=== PATIENT | male | born 1965 | race Caucasian/White ===

== ENCOUNTER → 2021-03-19 11:17 | Outpatient (CLI) | payer OTHER, SELFPAY ==
[2021-03-19 14:14] LABS: Absolute Lymphocyte Count 0.84 X10^3/uL (0.83-4.51); Absolute Neutrophil Count 6.1 X10^3/uL (2.0-7.7); Basophil# 0.03 X10^3/uL; Basophil% 0.4 % (0-1); Eosinophil# 0.04 X10^3/uL; Eosinophils% 0.5 % (0-5); Hemoglobin 12.1 g/dL (13.0-16.5); Lymphocyte # 0.84 X10^3/ul (0.83-4.51); Lymphocyte % 11.2 % (19-41); Mean Corp Hgb Conc 31.8 g/dL (32-36); Mean Corpuscular Hgb 28.1 pg (27.0-32.0); Mean Corpuscular Volume 88.4 fL (80-94); Mean Platelet Vol. 10.6 fl (6.2-12.0); Monocyte# 0.45 X10^3/uL; NRBC Flagged by Analyzer 0 % (0-5); Neutrophil # 6.12 X10^3/uL (2.7-7.7); Neutrophil % 81.5 % (47-70); Platelet Count 234 K/mm3 (150-450); RBC Distribution Width CV 16.4 % (11.6-14.6); RBC Distribution Width SD 52.8 fl (35.1-43.9); White Blood Count 7.5 K/mm3 (4.4-11.0)
[2021-03-19 14:34] LABS: ALB/GLOB Ratio 0.7 RATIO (0.9-2.4); AST(SGOT) 27 U/L (15-37); Alanine Aminotransfer ALT/SGPT 38 U/L (16-61); Albumin, Serum 2.9 g/dL (3.2-5.0); Alkaline Phosphatase 88 U/L (45-117); Anion Gap 6 (5-15); BUN 18 mg/dL (7-18); BUN/Creat Ratio 22.8 RATIO (10-20); Calcium,Total 8.8 mg/dL (8.5-10.1); Chloride 110 mmol/L (98-107); Creatinine, Serum 0.79 mg/dL (0.70-1.30); EST Glomerular Filtration Rate 108 mL/min (>60); Est Glom Filt Rate - Afr Amer 130 mL/min (>60); Globulin 4.4 g/dL (2.2-4.2); Glucose 113 mg/dL (74-106); Potassium 3.9 mmol/L (3.5-5.1); Protein, Total 7.3 g/dL (6.4-8.2); Sodium Level 142 mmol/L (136-145)
== END ==
LOC: MTLAB 11:22
PROVIDERS: PCP Family Medicine; Referring Provider Internal Medicine Rheumatology; Visit Provider Internal Medicine Rheumatology
DX: M06.4 Inflammatory polyarthropathy (principal); M17.0 Bilateral primary osteoarthritis of knee; M48.061 Spinal stenosis, lumbar region without neurogenic claudication; I10 Essential (primary) hypertension; E78.5 Hyperlipidemia, unspecified; N52.9 Male erectile dysfunction, unspecified; G47.33 Obstructive sleep apnea (adult) (pediatric); Z79.899 Other long term (current) drug therapy
CPT/HCPCS: 36415; 80053; 85025

== ENCOUNTER 2021-05-14 11:23 | Outpatient (CLI) | payer OTHER, SELFPAY ==
[2021-05-14 14:57] LABS: Absolute Lymphocyte Count 1.07 X10^3/uL (0.83-4.51); Absolute Neutrophil Count 4.7 X10^3/uL (2.0-7.7); Basophil# 0.02 X10^3/uL; Basophil% 0.3 % (0-1); Eosinophil# 0.02 X10^3/uL; Eosinophils% 0.3 % (0-5); Hematocrit 39.6 % (40-54); Hemoglobin 12.5 g/dL (13.0-16.5); Lymphocyte # 1.07 X10^3/ul (0.83-4.51); Lymphocyte % 16.1 % (19-41); Mean Corp Hgb Conc 31.6 g/dL (32-36); Mean Corpuscular Hgb 27.9 pg (27.0-32.0); Mean Corpuscular Volume 88.4 fL (80-94); Mean Platelet Vol. 11.2 fl (6.2-12.0); Monocyte# 0.67 X10^3/uL; Monocyte% 10.1 % (0-10); NRBC Flagged by Analyzer 0 % (0-5); Neutrophil # 4.74 X10^3/uL (2.7-7.7); Neutrophil % 71.5 % (47-70); Platelet Count 274 K/mm3 (150-450); RBC Distribution Width CV 15.4 % (11.6-14.6); RBC Distribution Width SD 49.5 fl (35.1-43.9); Red Blood Count 4.48 M/mm3 (4.6-6.2); White Blood Count 6.6 K/mm3 (4.4-11.0)
[2021-05-14 15:14] LABS: ALB/GLOB Ratio 0.6 RATIO (0.9-2.4); AST(SGOT) 22 U/L (15-37); Alanine Aminotransfer ALT/SGPT 33 U/L (16-61); Albumin, Serum 2.9 g/dL (3.2-5.0); Alkaline Phosphatase 105 U/L (45-117); Anion Gap 7 (5-15); BUN 10 mg/dL (7-18); BUN/Creat Ratio 13.9 RATIO (10-20); Calcium,Total 8.9 mg/dL (8.5-10.1); Chloride 102 mmol/L (98-107); Creatinine, Serum 0.72 mg/dL (0.70-1.30); EST Glomerular Filtration Rate 120 mL/min (>60); Est Glom Filt Rate - Afr Amer 145 mL/min (>60); Globulin 4.7 g/dL (2.2-4.2); Glucose 100 mg/dL (74-106); Potassium 3.8 mmol/L (3.5-5.1); Protein, Total 7.6 g/dL (6.4-8.2); Sodium Level 137 mmol/L (136-145)
== END 2021-05-14 23:59 | disposition home or self-care (01) ==
PROVIDERS: PCP Family Medicine; Referring Provider Internal Medicine Rheumatology; Visit Provider Internal Medicine Rheumatology
DX: M06.4 Inflammatory polyarthropathy (principal); M17.0 Bilateral primary osteoarthritis of knee; M48.061 Spinal stenosis, lumbar region without neurogenic claudication; I10 Essential (primary) hypertension; E78.5 Hyperlipidemia, unspecified; N52.9 Male erectile dysfunction, unspecified; G47.33 Obstructive sleep apnea (adult) (pediatric); Z79.899 Other long term (current) drug therapy
CPT/HCPCS: 36415; 80053; 85025

== ENCOUNTER 2022-07-23 19:06 | Inpatient (IN) | payer OTHER, SELFPAY ==
[2022-07-23 19:15] VITALS: BP 104/68; PULSE 89; RESP 18; TEMP 37.4; O2SAT 94
[2022-07-23 20:03] VITALS: BMI 41.6
[2022-07-23 21:35] VITALS: BMI 41.4
[2022-07-23] MEDS: oxyCODONE 5 MG Tablet PO (22:20)
[2022-07-23] MEDS: Acetaminophen 500 MG Tablet 1000 MG PO (22:21)
[2022-07-23] MEDS: Hydroxychloroquine 200 MG Tablet PO (22:21)
[2022-07-23] MEDS: Atorvastatin Calcium 40 MG Tablet PO (22:21)
[2022-07-23 22:23] VITALS: BP 135/55; PULSE 87; RESP 18; TEMP 36.9; O2SAT 91
--- NOTE | 2022-07-23 23:00 | NURSING ---
pt placed on 2L NC for sleep. Pt O2 91% while awake at times.
[2022-07-23] MEDS: 0.9% Saline Lock 10 ML Syringe IV (23:37)
[2022-07-24] VITALS (7 sets, daily range): BP systolic 126–146; BP diastolic 54–72; PULSE 79–85; RESP 16–22; TEMP 36.7–37.2; O2SAT 92–94; BMI 41.4
[2022-07-24 05:47] LABS: Absolute Lymphocyte Count 1.48 X10^3/uL (0.83-4.51); Absolute Neutrophil Count 7.9 X10^3/uL (2.0-7.7); Basophil# 0.04 X10^3/uL; Basophil% 0.4 % (0-1); Eosinophil# 0.24 X10^3/uL; Eosinophils% 2.2 % (0-5); Hematocrit 29.9 % (40-54); Hemoglobin 8.9 g/dL (13.0-16.5); Lymphocyte # 1.48 X10^3/ul (0.83-4.51); Lymphocyte % 13.8 % (19-41); Mean Corp Hgb Conc 29.8 g/dL (32-36); Mean Corpuscular Hgb 25.1 pg (27.0-32.0); Mean Corpuscular Volume 84.2 fL (80-94); Mean Platelet Vol. 9.8 fl (6.2-12.0); Monocyte# 0.97 X10^3/uL; Monocyte% 9.1 % (0-10); NRBC Flagged by Analyzer 0 % (0-5); Neutrophil # 7.89 X10^3/uL (2.7-7.7); Neutrophil % 73.8 % (47-70); Platelet Count 394 K/mm3 (150-450); RBC Distribution Width CV 16.1 % (11.6-14.6); RBC Distribution Width SD 50.3 fl (35.1-43.9); Red Blood Count 3.55 M/mm3 (4.6-6.2); White Blood Count 10.7 K/mm3 (4.4-11.0)
[2022-07-24 06:15] LABS: ALB/GLOB Ratio 0.4 RATIO (0.9-2.4); AST(SGOT) 61 U/L (15-37); Alanine Aminotransfer ALT/SGPT 88 U/L (16-61); Albumin, Serum 2.2 g/dL (3.2-5.0); Alkaline Phosphatase 137 U/L (45-117); Anion Gap 9 (5-15); BUN 12 mg/dL (7-18); Chloride 107 mmol/L (98-107); Creatinine, Serum 0.63 mg/dL (0.70-1.30); EST Glomerular Filtration Rate 139 mL/min (>60); Est Glom Filt Rate - Afr Amer 168 mL/min (>60); Estimated Creatinine Clearance 152.76 ml/min; Globulin 5.3 g/dL (2.2-4.2); Glucose 105 mg/dL (74-106); Magnesium 2.3 mg/dL (1.6-2.6); Phosphorus 4.3 mg/dL (2.5-4.9); Potassium 3.8 mmol/L (3.5-5.1); Protein, Total 7.5 g/dL (6.4-8.2); Sodium Level 140 mmol/L (136-145); Uric Acid 4.7 mg/dL (3.5-7.2)
[2022-07-24] MEDS: 0.9% Saline Lock 10 ML Syringe IV ×4 (06:19→23:12)
[2022-07-24] MEDS: Folic Acid 1 MG Tablet PO (07:48)
[2022-07-24] MEDS: Aspirin E.C. 81 MG Tablet PO (07:48)
[2022-07-24] MEDS: amLODIPine 10 MG Tablet PO (07:48)
[2022-07-24] MEDS: Fenofibrate 48 MG Tablet PO (07:48)
[2022-07-24] MEDS: Clopidogrel Bisulfate 75 MG Tablet PO (07:49)
[2022-07-24] MEDS: Allopurinol 300 MG Tablet PO (07:55)
[2022-07-24] MEDS: Allopurinol 100 MG Tablet PO (07:55)
[2022-07-24] MEDS: oxyCODONE 5 MG Tablet PO ×2 (08:17→15:51)
[2022-07-24] MEDS: Acetaminophen 500 MG Tablet 1000 MG PO ×2 (10:00→20:44)
[2022-07-24] MEDS: Hydroxychloroquine 200 MG Tablet PO ×2 (10:01→20:45)
--- NOTE | 2022-07-24 10:53 | EX.PCM.HP.RE ---
[facility] Date of Admission: 07/23/22 Date of Service: 07/24/22 Chief Complaint: Post stroke debility HPI Narrative PHILIP DU, is a 57 YO M with a PMH of HTN, Class 3 obesity, hyperuricemia, gout, recent (06/29/22) angioplasty and stent to the R popliteal Artery for occlusion, RA (started on Plaquenil and folic acid by his PCP.....no recent eye exam) on tobacco dependence in remission, FH of heart disease and chronic back pain who presented to [facility] on 07/11/22 with left side weakness and slurred speech. NIHSS was 11 at presentation to the emergency room. Stat NC CT brain was negative for acute findings and he received TNK. He was transferred to [facility] for further workup. Upon arrival at [facility] his NIHSS was 4. He was evaluated by Dr. Warner and there was no indication for EVT at the time. He was admitted to the NICU and his NIHSS later went back up to 11 and he was taken for an emergent M1 thrombectomy. MRI showed ischemic infarcts in the R M1 and M2 areas and also in the L temporal lobe, the occipital lobe and the L cerebellum and a small SAH in the Left temporal area. Follow up MRI showed no changes. He had a TTE to determine the etiology of the emboli and he was found to have a PFO. He also had fever and leukocytosis and a DEYVI was done and it showed severe aortic regurgitation with a vegetation on the aortic valve. Blood cultures were negative. He was seen in consultation by infectious disease and at the time of transfer he is on Unasyn and daptomycin. While at the previous hospital he was seen by PT/OT/ST and a recommendation for acute rehab was made. Al was transferred to [facility] acute rehab on 07/23/22 for 3 hours of therapy daily to restore function/independence at or near his prior level. Afebrile VSS Maintaining appropriate oxygen saturation on RA Oral intake is adequate Weight today is 333.3 pounds. On 07/11/2022 he weighed 347 pounds and 11 ounces. Discussed with nursing - no problems that need addressed Reviewed the PT/OT/ST notes Medication list reviewed. He came to us on Vasotec 10 mg and the hospital does not have Vasotec on formulary so pharm did an interchange with Lisinopril 20 mg and this was discontinued when the pt told the night nurse he was not on Lisinopril. He has gotten progressively more SOB as the day has gone on and has a dry cough. He has pain in the R calf and he is also c/o KAY's and back pain. PT tells me that he was SOB with exertion. He snores loudly and does not feel rested when he gets up in the AM. He falls asleep reading a book or riding in a car for any length of time. He has HTN and his BMI is 41.7. Stop bang score is 7 which puts him at high risk for obstructive sleep apnea. [facility] Medical History (Updated 07/24/22 @ 17:[address] Sylvie Plata DO) Chronic back pain Class 3 obesity Family history of heart disease Former smoker Gout Hearing loss, left Hypertension Peripheral vascular disease PFO (patent foramen ovale) Presence of arterial stent Rheumatoid arthritis Stroke/cerebrovascular accident Home Medications Acetaminophen Pain Relief 500 mg PO/SL Q8H PRN PRN Pain 07/23/22 [History Last Taken Unknown] Cubicin 900 mg IVPB DINNER ATB 07/23/22 [History Last Taken 07/23/22 17:52] albuterol sulfate 90 mcg/actuation aerosol inhaler 90 mcg inhalation Q6H PRN PRN Shortness Of Breath Or Wheezing 07/23/22 [History Last Taken Unknown] allopurinol 100 mg tablet 100 mg PO DAILY GOUT 07/23/22 [History Last Taken Unknown] allopurinol 300 mg tablet 300 mg PO DAILY GOUT 07/23/22 [History Last Taken 07/23/22] amlodipine 10 mg PO/SL DAILY HTN 07/23/22 [History Last Taken 07/23/22] ampicillin-sulbactam 3 g IVPB Q6H ATB 07/23/22 [History Last Taken 07/23/22 17:23] aspirin 81 mg PO/SL DAILY HEART 07/23/22 [History Last Taken 07/23/22] atorvastatin 40 mg PO/SL QHS HIGH CHOLESTEROL 07/23/22 [History Last Taken 07/22/22 21:22] baclofen 5 mg tablet 5 mg PO 2XD PRN MUSCLE CRAMPS 07/23/22 [History Last Taken 07/23/22] clopidogrel 75 mg tablet 75 mg PO DAILY BLOOD THINNER 07/23/22 [History Last Taken 07/23/22] enalapril maleate 20 mg tablet 20 mg PO DAILY HTN 07/23/22 [History Last Taken 07/23/22] fenofibrate 54 mg tablet 54 mg PO DAILY HYPERTRIGLYCERIDEMIA 07/23/22 [History Last Taken Unknown] folic acid 1 mg tablet 1 mg PO DAILY ANEMIA 07/23/22 [History Last Taken 07/23/22] hydroxychloroquine 200 mg tablet 200 mg PO BID ARTHRITIS 07/23/22 [History Last Taken Unknown] oxycodone 5 mg tablet 5 mg PO Q6H PRN PRN PAIN 07/23/22 [History Last Taken 07/23/22 14:44] polyethylene glycol 3350 17 g PO/SL DAILY CONSTIPATION 07/23/22 [History Last Taken 07/22/22 08:10] senna-docusate sodium 8.6 - 50 mg PO/SL BID STOOL SOFTENER 07/23/22 [History Last Taken 07/22/22] Allergy/AdvReac Type Severity Reaction Status Date / Time cephalexin Allergy Shortness Verified 07/23/22 20:24 of breath Surgical History (Updated 07/24/22 @ 11:[address] Syvlie Plata, DO) H/O hand surgery History of bowel resection Hx of total knee arthroplasty Postprocedural state Social History Smoking Status: Former smoker ROS Constitutional Constitutional: Reports change in weight, weight loss and other Details: wt loss since admission to the hospital on 07/11/22 ; Denies anorexia, chills, fatigue, fever(s), night sweats or weakness Eyes Eyes: Denies blurry vision, change in vision, eye pain or loss of vision ENT HEENT: Reports headache(s); Denies abnormal hearing, dysphagia, hearing loss, nasal congestion or sore throat Cardiovascular Cardiovascular: Reports dyspnea on exertion and edema; Denies chest pain, lightheadedness, orthopnea, palpitations, paroxysmal nocturnal dyspnea or syncope Respiratory/Chest Respiratory/Chest: Reports cough, shortness of breath with exertion and wheezing; Denies dyspnea or shortness of breath at rest Gastrointestinal Gastrointestinal: Denies abdominal pain, constipation, diarrhea, dyspepsia, hematemesis, hematochezia, nausea or vomiting Genitourinary Genitourinary: Denies dysuria, hematuria, nocturia, urinary frequency, urinary hesitancy, urinary incontinence or urinary urgency Musculoskeletal Musculoskeletal: Reports back pain and joint pain; Denies joint swelling or neck pain Neurologic Neurologic: Reports headache(s); Denies confusion, disequilibrium, dizziness, focal weakness, paresthesias, seizures or tremor(s) Psychiatric Psychiatric: Denies anxiety, depression, homicidal ideation or suicidal ideation Endocrine Endocrinology: Denies change in body appearance, polydipsia or polyuria Hematologic/Lymphatic Hematologic/Lymphatic: Denies easy bleeding, easy bruising or lymphadenopathy Allergic/Immunologic Allergic/Immunologic: Denies rhinitis, eczemia or asthma Vital Signs Vital Signs Vital Signs: 07/23/22 19:15 07/23/22 22:23 07/23/22 22:00 Temperature 99.4 F H 98.4 F Temperature Source Oral Oral Pulse Rate 89 87 Respiratory Rate 18 18 Respiratory Effort Normal Non-Labored Respiratory Depth Normal Respiratory Pattern Normal Blood Pressure 104/68 135/55 H Blood Pressure Mean 80 81 Blood Pressure Source Monitor Blood Pressure Position Semi-Fowlers Semi-Fowlers Blood Pressure Location Right Forearm Right Arm Pulse Ox 94 91 Oxygen Delivery Method Room Air Room Air Room Air 07/24/22 07:47 Temperature 98.6 F Temperature Source Oral Pulse Rate 81 Respiratory Rate 18 Respiratory Effort Respiratory Depth Respiratory Pattern Blood Pressure 146/64 H Blood Pressure Mean 91 Blood Pressure Source Monitor Blood Pressure Position Semi-Fowlers Blood Pressure Location Right Arm Pulse Ox 94 Oxygen Delivery Method Room Air Weight Weight: 333 lb 1.895 oz Body Mass Index (BMI) 41.4 Indicators for Scoring Admitted with or Primary Diagnosis of CVA/Stroke: Yes Hx of CVA/Stroke: No Modified Adryan Score MRS Score at time of Evaluation: 4-Moderate/severe disability NIHSS NIHSS 1a. Level of Consciousness: Alert; keenly responsive 1b. LOC Questions: Answers BOTH questions correctly. 1c. LOC Commands: Performs both tasks correctly. 2. Best Gaze: Normal 3. Visual: No visual loss 4. Facial Palsy: Normal symmetrical movements 5a. Left Arm: No drift; arm holds 90 (or 45) degrees for full 10 seconds 5b. Right Arm: Drift; arm drifts downward but doesn?t hit the bed (c/o R shoulder pain and needed asistance from PT to get the RUE onto the WW) 6a. Left Leg: No drift; leg holds 30-degree position for full 5 seconds 6b. Right Leg: No drift; leg holds 30-degree position for full 5 seconds 7. Limb Ataxia: Absent 8. Sensory: Normal; no sensory loss 9. Best Language: No aphasia; normal 10. Dysarthria: [id number] dysarthria; 11. Extinction and Inattention: No abnormality Total: 2 Stroke Questions Stroke Team Activated: No Physical Exam Const alert and oriented x3 Constitutional Narrative: Looks to be in pain. He is lying in bed and is restless. He falls asleep twice when I am talking with him but, arouses easily. The R leg is painful and he has the knee up on a pillow and says it feels better if the Knee is flexed. He is pleasant. General Appearance: cooperative HEENT normocephalic and head/scalp atraumatic HEENT Narrative: missing teeth and many caries. Mouth: dry mucous membranes Eyes PERRL and EOMs intact bilaterally Eyes Narrative: No scleral icterus, no conjunctival injection, no discharge from the eye, sclera is normal. Neck supple Neck Narrative: Thick short neck General: trachea midline Resp Resp Narrative: diffuse wheezing with diminished BS's. Dry cough. Increased RR with any exertion. Denies CP. Auscultation: wheezes and diminished lung sounds Cardio regular rate, regular rhythm, no murmurs and no rub Cardio Narrative: Distant Heart sounds. GI normal to inspection, nondistended, normoactive bowel sounds, soft to palpation and non-tender GI Narrative: No guarding with palpation. Obese. Extremity Extremity Narrative: calf tenderness on the R edema in both distal LE's Skin no jaundice General Skin Exam: no breakdown Rashes: no rashes Neuro Neuro Narrative: Trace Left facial droop. Speech: speech normal Psych cooperative, affect normal, denies homicidal ideation and denies suicidal ideation Psych Narrative: seems overwhelmed with all that is going on with him the past month. Appearance: appropriate Attitude: No agitated Results Lab / Micro Data Result Diagrams: 07/24/22 05:39 07/24/22 05:39 Labs: Laboratory Results - last 24 hr 07/24/22 05:39: WBC 10.7, RBC 3.55 L, Hgb 8.9 L, Hct 29.9 L, MCV 84.2, MCH 25.1 L, MCHC 29.8 L, RDW Std Deviation 50.3 H, RDW Coeff of Ghassan 16.1 H, Plt Count 394, MPV 9.8, Immature Gran % (Auto) 0.700, Neut % (Auto) 73.8 H, Lymph % (Auto) 13.8 L, Cecil % (Auto) 9.1, Eos % (Auto) 2.2, Baso % (Auto) 0.4, Absolute Neuts (auto) 7.9 H, Absolute Lymphs (auto) 1.48, Nucleated RBC % 0 07/24/22 05:39: Sodium 140, Potassium 3.8, Chloride 107, Carbon Dioxide 24.0, Anion Gap 9, BUN 12, Creatinine 0.63 L, Estim Creat Clear Calc 152.76, Est GFR (MDRD) Af Amer 168, Est GFR (MDRD) Non-Af 139, BUN/Creatinine Ratio 19.0, Glucose 105, Uric Acid 4.7, Calcium 9.0, Phosphorus 4.3, Magnesium 2.3, Total Bilirubin 0.40, AST 61 H, ALT 88 H, Alkaline Phosphatase 137 H, Total Protein 7.5, Albumin 2.2 L, Globulin 5.3 H, Albumin/Globulin Ratio 0.4 L Assessment & Plan Assessment/Plan (1) Physical debility: (2) Stroke/cerebrovascular accident: PLAN: R MCA M1 and M2 - S/P EVT on 07/11/22 at [facility] by Dr. Warner. Received thrombolytic. (3) Postprocedural state: (4) PFO (patent foramen ovale): (5) SAH (subarachnoid hemorrhage): PLAN: post thrombolytic (6) Aortic valve vegetation: PLAN: BC's negative ( got antibiotics before the vegetation was identified). (7) Endocarditis: PLAN: On Unasyn and daptomycin (8) S/P PICC central line placement: (9) Severe aortic valve regurgitation: PLAN: 3+ to 4+ (10) Left atrial enlargement: (11) DVT of lower limb, acute: PLAN: R gastrocnemius (12) Peripheral vascular disease: PLAN: R popliteal (13) Presence of arterial stent: PLAN: angioplasty and stent to the R popliteal A. on 06/29/22 at [facility] (14) Superficial thrombophlebitis: PLAN: While are [facility].....suspected to be due to an IV infiltrating. (15) Normocytic hypochromic anemia: (16) Rheumatoid arthritis: PLAN: Treated by PCP. Has never seen a draftsperson and has not had a recent eye exam on Plaquenil. (17) Prediabetes: (18) Class 3 obesity: (19) Hyperuricemia: PLAN: UA is 4.7 today. No tophi (20) Gout: (21) Hypertension: (22) Abnormal LFTs: (23) Hypoalbuminemia: (24) Elevated TSH: (25) CATHY (obstructive sleep apnea): PLAN: Stop Bang score is 7. High risk for CATHY. Should have a formal sleep study post DC. (26) Chronic back pain: PLAN: Plan PLAN PT for gait stability OT for ADL's ST for evaluation Analgesics as needed Bowel protocol Fall precautions Assess for Anxiety/Depression GI prophylaxis with Protonix 40 mg daily DVT prophylaxis with Lovenox 30 mg SQ every 12 hours Follow up with cardiology, neurology, PCP, pulmonary medicine/sleep medicine following DC from [facility] AM lab including CMP, CBC, Mag and Phos all personally reviewed. Venous US of the RLE is positive for DVT in the gastrocnemius vein - no prior hx of DVT. CTA of the chest in light of SOB and wheezing and ? infiltrate on plain XRAY of the chest. D DIMER BNP Continue antibiotics Oxycodone PRN for back pain and also K pad and arthritis cream. Schedule the Baclofen 5 mg BID Oxygen when sleeping and when SOB CBC with DIFF, CMP, ESR and CRP every Wednesday while on antibiotics Can not follow up with ID at [facility] while on acute rehab so will likely consult Dr. Riojas on Wednesday. Since the clot in the RLE is distal leg will not fully anticoagulate at this time. Will recheck an US next week to make sure it is not extending. Continue Lovenox 40 mg SQ twice daily - for BMI of 42 in a immobile pt with a small distal DVT. Hs been 13 days since the stroke This pt is complex and will need a lot of follow up. We discussed losing weight and possibly using Effexor to help with back pain and with depression and wt loss. Consult the behavioral health director Advised him to follow up with Rheumatology and get a yearly eye exam while on Plaquenil. Add purine restriction to current diet. Lisinopril 20 mg daily for hypertension and afterload reduction I reviewed the plain XRAY of the chest and there is no PVC and no effusions. BNP is 52. Awaiting the radiology report on the CTA of the chest and the D DIMER Charges/Coding Visit Charges Inpatient E&M: 81893 Init Hosp L3
[2022-07-24] MEDS: Enoxaparin 30 MG/0.3 ML Syringe SC (11:58)
--- NOTE | 2022-07-24 15:21 | CHAPLAIN ---
Type of Pastoral Visit __x_ Initial Visit ___ Follow-up Visit ___ On-call Visit ___ General Patient Visit ___ Spiritual Assessment ___ Family Conference ___ Bereavement ___ Rapid Response ___ Code Blue ___ Other (describe below) Pastoral Care Referral From _x__ Patient ___ Family ___ Nurse ___ Physician ___ [employer] Pages Space Salesperson ___ Machine Puller And Laster ___ Other (describe below) Sacrament/Intervention _x__ Active listening ___ Anointing ___ Roman Catholic ___ Bereavement ___ Communion _x__ Germania exploration ___ _x__ Life review _x__ Prayer ___ Reconciliation ___ Sacrament of Sick ___ Supportive presence ___ Wedding ___ Other (describe below) Pastoral Comments patient is welcoming and gives his story about work and when stroke happened; pt is able to discuss mortality/reality about life; pt has supportive and an adult child nearby but others live out of state; pt does not have a zoroastrian but states that he will start going to zoroastrian when he is released; pt is open to prayer and spiritual care
--- NOTE | 2022-07-24 15:48 | EKG12_ITS ---
Test Reason : Blood Pressure : / mmHG Vent. Rate : 080 BPM Atrial Rate : 080 BPM P-R Int : 152 ms QRS Dur : 106 ms QT Int : 442 ms P-R-T Axes : 065 042 050 degrees QTc Int : 509 ms Normal sinus rhythm Prolonged QT Abnormal ECG No previous ECGs available Confirmed by DEBI BAKER, RONALD ([id number]), video editor JULIA LOPES ([id number]) on 07/28/2022 1:16:38 PM Referred By: BREANNA Confirmed By:AWA CARRERA MD
--- NOTE | 2022-07-24 15:48 | VDLE_ITS ---
Reason For Study: LEG PAIN RIGHT LEFT GSV is normal. CFV is compressible, spontaneous, phasic, CFV is compressible, spontaneous, phasic, competent, and demonstrates normal competent and demonstrates normal augmentation. augmentation. FV is compressible, spontaneous, phasic, competent and demonstrates normal augmentation. POP V is compressible, spontaneous and phasic. T/P Trunk is compressible. Acute deep vein thrombosis is noted in the Gastrocnemius Vein. It is dilated and NONCOMPRESSIBLE. PTV is compressible. RT PerV is compressible. Procedure This is a venous duplex using B-mode, color flow and spectral Doppler. Exam performed portable in patient room. The exam was diagnostic. A preliminary report was called and/or faxed to Dr. Plata. VL/Venous Duplex US, Unilateral Interpretation Summary Acute deep venous thrombosis right gastrocnemius vein Patent and compressible right great saphenous vein Normal flow patterns left common femoral vein Ordering Physician: Sylvie Plata Performed By: Olman Ramos RVT
--- NOTE | 2022-07-24 16:00 | RAD_ITS ---
STUDY: X-RAY CHEST REASON FOR EXAM: Male, 57 years old. wheezing/SOB. -- Please do in radiology TECHNIQUE: PA and lateral COMPARISON: None. FINDINGS: Mild probable chronic interstitial changes within the lower lobes more severe on the right. There are tiny nodular opacities in the left upper lobe of indeterminate etiology possibly granulomatous disease. Correlation with CT or prior studies is recommended for further assessment. There is no demonstrated pleural abnormality. PICC line noted on the left with tip in distal superior vena cava. Normal size heart. Normal mediastinum and daisy. Normal visualized pulmonary arteries. Normal visualized aortic arch and descending thoracic aorta. Dorsal spine demonstrates degenerative changes.. Normal visualized ribs, clavicles, and shoulders. There is no demonstrated abnormality of the visualized soft tissue structures of the upper abdomen. RAD/Chest PA and Lateral IMPRESSION: Probable chronic interstitial changes in the lower lobes more pronounced on the right. Tiny nodular opacities in left upper lobe of uncertain etiology. Recommend correlation with prior studies or CT for further evaluation. Electronically Signed: Ty Montenegro MD at 16:51 EDT ,
--- NOTE | 2022-07-24 16:32 | CT_ITS ---
STUDY: CTA CHEST REASON FOR EXAM: Male, 57 years old. SOB/DVT RLE RADIATION DOSAGE (If Supplied By Facility): CTDIvol = ( 34.96 ) mGy, DLP = ( 1654.29 ) mGycm TECHNIQUE: The examination was performed with the intravenous administration of IV 100mL Isovue-370. Post-processing of the angiographic images was performed, with multiplanar reformation and 3D reconstruction. Individualized dose optimization techniques were used for this CT. COMPARISON: None. FINDINGS: Normal enhancement of the main pulmonary artery and right and left pulmonary arteries. There is no definitive evidence for pulmonary embolus however examination is limited due to respiratory motion creating linear filling defects throughout the pulmonary arteries and tiny clots cannot be entirely excluded. If strong clinical concern for pulmonary embolus pulmonary ventilation and perfusion scan recommended for further evaluation . Normal thoracic aorta and visualized great vessels. There is no demonstrated aortic dissection. Normal heart and pericardium. There is mild multifocal coronary artery calcification. Multiple subcentimeter mediastinal and bilateral axillary nodes likely of no clinical significance.. Normal hilar regions. Normal visualized trachea and bronchi. The lungs are well expanded. Minor left basilar atelectasis. No focal infiltration or pulmonary. Tiny calcified granuloma in the right lower lobe. Normal pleura. Normal chest wall structures. Dorsal spine demonstrates moderate arthritic changes.. Normal visualized upper abdomen. CT/CTA Chest W/WO Contrast IMPRESSION: ASHD and minimal left basilar atelectasis.. Suboptimal study for pulmonary emboli due to extensive motion artifact. There is no definitive evidence for intraluminal clot however tiny clot cannot be entirely excluded. Radionuclide ventilation/perfusion scan may be helpful for further evaluation Electronically Signed: Ty Montenegro MD at 17:55 EDT ,
--- NOTE | 2022-07-24 17:00 | NURSING ---
Positional changes attempted to left arm due to PICC line LUE not flushing and all ineffective. Cathflo x 1 ordered.
[2022-07-24] MEDS: Lisinopril 20 MG Tablet PO (17:36)
--- NOTE | 2022-07-24 17:49 | PCM.RU.PYE ---
Admission Information Primary Diagnosis:: Post stroke debility. Status Changes from Prescreening?: Medical (found to have a DVT in the R gastrocnemius vein. ) Actual Problem List:: DVT, Pain, ALteration in Cmfrt, Cognitve Impr/Memory Loss, Alteration in Sleep, Mobility Impaired, Self Care Deficit, Know.Dfct/Disease Process, BP, Hypertension, Alteration/ Air Exchange and Alteration-Leisure Activ. Potential Problem List:: DVT, Bleeding, Infection, UTI, Aspiration, Falls, Skin Integrity and Depression Risk of Complications DVT: LMWH and ETELVINA Hose Bleeding: Monitor Lab Values, Nursing to Teach Precautions for anti-coagulation therapy., Wound, if applicable, to be assessed every shift. and Stroke patients assessed for lethargy or change in status. Infection: Clinical Staff to Monitor for S/S of infection: and S/S of infection include fever, redness, warmth, etc. Urinary Tract Infection: Monitor for frequency, burning, discomfort, or incontinence. and Nursing will obtain urine sample for urinalysis and C&S when ordered. Aspiration: Clinical staff will monitor for coughing, drooling, congestion., Speech will evaluate swallowing and dsyphasia. and Nursing will monitor patient swallowing during meals. Falls: Patient will be evaluated for Fall Precautions and Patient will be placed on Fall Precautions as indicated per protocol. Skin Breakdown: Nursing will assess skin daily using assessment tool. and Nursing will place on Skin Breakdown Precautions as indicated. Pain: Clinical staff will assess patient's pain level per protocol., Medications will be given, if needed, and the pain level reassessed. and Other methods: Massage, distraction, decrease stimulus, etc. used PRN. Plan of Care Patient requires physician specializing in physical medicine and rehab oversight to provide close medical supervision of rehab issues including: Pain Management, Sleep Problems, Bowel and Bladder, Medical and co-morbidity Management, DVT prophylaxis, Rehabilitation Leadership and Coordination of treatment team Patient needs Physical Therapy: For a minimum of 1 hour and At least 5 out of 7 days Patient needs Physical Therapy to improve:: Mobility, Strengthening, Transfers, Stretching, ROM, Endurance, Stairs, Gait and Balance Patient needs Occupational Therapy: For a minimum of 1 hour and At least 5 out of 7 days Patient needs Occupational Therapy to improve ADL's incl.: Eating, Grooming, Bathing, Dressing, Toileting, Toilet transfers, Community Reintegration, Higher functioning activities, Household tasks, Adaptive Equipment, Splinting and Other activities as determined Patient requires speech therapy: For a minimum of 1 hour and At least 5 out of 7 days Patient requires speech therapy for: Swallowing, Cognition, Language Skills and Compensatory Strategies Patient requires 24/ Rehabilitation Nursing for: Pain Issues, Identifying and preventing risk factors, Monitoring and reporting current medical conditions, Assisting with ambulation, transfer, and all ADL's, Teaching patients about disease process and medications, Family teaching, Providing safe environment, Bowel and Bladder Issues, Skin integrity and Medication Management Patient needs Integrity Analyst/ Case Management for: Discharge Planning, Arranging Home Equipment or Services and Family Interventions Patient needs Dietary and Nutrition Services for: Adequate Nutrition, Nutritional Supplements and Nutritional Education Goals Patient will remain: free from falls Patient will perform bed mobility at: MOD I level of assist. Patient will complete transfers from bed to chair at: MOD I level of assist. (supervision) Patient will ambulate: - (250 ft with LRD at MOD I) Patient will complete upper body dressing at: - (set up) Patient will complete lower body dressing at: - (Moderate assistance with adaptive equipment as needed) Patient will complete toileting at: - (Min assist) Patient will perform bathing at: Standby Assist. Patient will complete grooming at: MOD I level of assist. Patient will achieve: - (5 steps with 1-2 HR's at SBA to allow access to his home) Patient will have pain level of: of 3 or less Patient's skin will: remain intact Patient will receive: adequate nutrition. Discharge Planning Pt Prognosis for Sig. Practical Improv. w/in Reasonable Time: Good Estimated Length of stay (days): 21 Anticipated D/C Destination: Home with Outpt Therapy Was Preadmission Assessment Accurate?: Yes
[2022-07-24 18:32] LABS: D-Dimer Quantitative (DVT/PE) 4.93 FEU/ug/m (0.27-0.49)
[2022-07-24] MEDS: Albuterol 2.5 MG/3 ML VIAL.NEB. INHALATION (18:55)
[2022-07-24] MEDS: Atorvastatin Calcium 40 MG Tablet PO (20:44)
[2022-07-24] MEDS: Baclofen 10 MG Tablet 5 MG PO (20:45)
[2022-07-24] MEDS: Enoxaparin 40 MG/0.4 ML Syringe SC (20:45)
[2022-07-24] MEDS: Arthritis Pain Compound 60 CLICK TUBE TOPICAL (20:46)
[2022-07-24] MEDS: Alteplase 2 MG/2 ML Vial IV (22:02)
--- NOTE | 2022-07-24 22:30 | NURSING ---
cath radha instilled in lt arm picc line without difficulty at 2205. This RN was unable to flush or pull back fluid from line prior to cath radha. This RN will reevaluate at 2234.
--- NOTE | 2022-07-24 23:18 | NURSING ---
at 1 hour vesta post cath radha, this RN able to pull 10 cc blood back. blood discarded and picc flushed easily with 10 cc NS.
[2022-07-25] VITALS (10 sets, daily range): BP systolic 131–141; BP diastolic 48–68; PULSE 74–85; RESP 16–18; TEMP 36.6–36.8; O2SAT 92–97; BMI 41.9
[2022-07-25] MEDS: oxyCODONE 5 MG Tablet PO ×4 (00:32→22:05)
[2022-07-25] MEDS: Arthritis Pain Compound 60 CLICK TUBE TOPICAL ×3 (06:06→22:14)
[2022-07-25] MEDS: Acetaminophen 500 MG Tablet 1000 MG PO ×3 (06:06→22:14)
[2022-07-25 07:16] LABS: Absolute Lymphocyte Count 1.44 X10^3/uL (0.83-4.51); Absolute Neutrophil Count 7.3 X10^3/uL (2.0-7.7); Basophil# 0.05 X10^3/uL; Basophil% 0.5 % (0-1); Eosinophil# 0.29 X10^3/uL; Eosinophils% 2.9 % (0-5); Hematocrit 27.8 % (40-54); Hemoglobin 8.5 g/dL (13.0-16.5); Lymphocyte # 1.44 X10^3/ul (0.83-4.51); Lymphocyte % 14.5 % (19-41); Mean Corp Hgb Conc 30.6 g/dL (32-36); Mean Corpuscular Hgb 25.3 pg (27.0-32.0); Mean Corpuscular Volume 82.7 fL (80-94); Mean Platelet Vol. 10.3 fl (6.2-12.0); Monocyte# 0.83 X10^3/uL; Monocyte% 8.4 % (0-10); NRBC Flagged by Analyzer 0 % (0-5); Neutrophil # 7.25 X10^3/uL (2.7-7.7); Neutrophil % 72.9 % (47-70); POSITIVE MORPHOLOGY YES; Platelet Count 419 K/mm3 (150-450); RBC Distribution Width CV 16.3 % (11.6-14.6); RBC Distribution Width SD 49.2 fl (35.1-43.9); Red Blood Count 3.36 M/mm3 (4.6-6.2); White Blood Count 9.9 K/mm3 (4.4-11.0)
[2022-07-25 07:20] LABS: Differential Indicated SCAN CRITERIA MET
[2022-07-25 08:09] LABS: Atypical Lymphocyte 1+ %; Platelet Morphology LARGE
[2022-07-25] MEDS: Allopurinol 100 MG Tablet PO (08:53)
[2022-07-25] MEDS: Allopurinol 300 MG Tablet PO (08:53)
[2022-07-25] MEDS: Venlafaxine XR 75 MG Capsule PO (08:53)
[2022-07-25] MEDS: Potassium Chloride Oral Tablet 20 MEQ PO (08:53)
[2022-07-25] MEDS: Aspirin E.C. 81 MG Tablet PO (08:53)
[2022-07-25] MEDS: Hydroxychloroquine 200 MG Tablet PO ×2 (08:53→22:14)
[2022-07-25] MEDS: Senna/Docusate Sodium 1 Tablet PO (08:53)
[2022-07-25] MEDS: Fenofibrate 48 MG Tablet PO (08:53)
[2022-07-25] MEDS: amLODIPine 10 MG Tablet PO (08:53)
[2022-07-25] MEDS: Folic Acid 1 MG Tablet PO (08:53)
[2022-07-25] MEDS: Clopidogrel Bisulfate 75 MG Tablet PO (08:53)
[2022-07-25] MEDS: Pantoprazole Sodium 40 MG Tablet PO (08:53)
[2022-07-25] MEDS: Lisinopril 20 MG Tablet PO (08:53)
[2022-07-25] MEDS: Baclofen 10 MG Tablet 5 MG PO ×2 (08:54→22:14)
[2022-07-25] MEDS: Enoxaparin 40 MG/0.4 ML Syringe SC ×2 (08:54→22:12)
[2022-07-25] MEDS: Nystatin Powder 15gm Bottle 1 APPLIC TOPICAL ×2 (08:55→21:57)
[2022-07-25] MEDS: Albuterol 2.5 MG/3 ML VIAL.NEB. INHALATION ×3 (11:55→19:18)
[2022-07-25] MEDS: 0.9% Saline Lock 10 ML Syringe IV ×3 (12:12→22:01)
[2022-07-25] MEDS: Menthol/Lanolin/Calamine/Znox 113 GM Tube 1 APPLIC TOPICAL (21:57)
[2022-07-25] MEDS: Atorvastatin Calcium 40 MG Tablet PO (22:14)
[2022-07-26] VITALS (10 sets, daily range): BP systolic 132–141; BP diastolic 46–58; PULSE 71–86; RESP 16–20; TEMP 36.2–36.9; O2SAT 93–96; BMI 41.8
[2022-07-26] MEDS: 0.9% Saline Lock 10 ML Syringe IV ×2 (05:10→17:19)
[2022-07-26] MEDS: Arthritis Pain Compound 60 CLICK TUBE TOPICAL ×3 (05:12→20:11)
[2022-07-26] MEDS: Acetaminophen 500 MG Tablet 1000 MG PO ×3 (05:12→20:14)
[2022-07-26] MEDS: Menthol/Lanolin/Calamine/Znox 113 GM Tube 1 APPLIC TOPICAL ×2 (05:13→20:15)
[2022-07-26] MEDS: Albuterol 2.5 MG/3 ML VIAL.NEB. INHALATION ×2 (06:30→18:58)
[2022-07-26] MEDS: amLODIPine 10 MG Tablet PO (08:12)
[2022-07-26] MEDS: Venlafaxine XR 75 MG Capsule PO (08:12)
[2022-07-26] MEDS: Enoxaparin 40 MG/0.4 ML Syringe SC ×2 (08:12→20:13)
[2022-07-26] MEDS: Lisinopril 20 MG Tablet PO (08:13)
[2022-07-26] MEDS: Fenofibrate 48 MG Tablet PO (08:13)
[2022-07-26] MEDS: Clopidogrel Bisulfate 75 MG Tablet PO (08:13)
[2022-07-26] MEDS: Allopurinol 300 MG Tablet PO (08:13)
[2022-07-26] MEDS: Aspirin E.C. 81 MG Tablet PO (08:13)
[2022-07-26] MEDS: Folic Acid 1 MG Tablet PO (08:13)
[2022-07-26] MEDS: Baclofen 10 MG Tablet 5 MG PO ×2 (08:13→20:12)
[2022-07-26] MEDS: Allopurinol 100 MG Tablet PO (08:13)
[2022-07-26] MEDS: Pantoprazole Sodium 40 MG Tablet PO (08:13)
[2022-07-26] MEDS: Potassium Chloride Oral Tablet 20 MEQ PO (08:14)
[2022-07-26] MEDS: Hydroxychloroquine 200 MG Tablet PO ×2 (08:14→20:14)
[2022-07-26] MEDS: Nystatin Powder 15gm Bottle 1 APPLIC TOPICAL ×2 (08:14→20:16)
[2022-07-26] MEDS: oxyCODONE 5 MG Tablet PO ×2 (08:19→13:10)
[2022-07-26] MEDS: Atorvastatin Calcium 40 MG Tablet PO (20:13)
[2022-07-26] MEDS: Senna/Docusate Sodium 1 Tablet PO (20:14)
--- NOTE | 2022-07-26 20:18 | NURSING ---
Pt requested medication at this time.
[2022-07-27 02:00] VITALS: BP 176/69; PULSE 81; RESP 18; TEMP 36.6; O2SAT 93
[2022-07-27] MEDS: oxyCODONE 5 MG Tablet PO ×3 (02:10→20:39)
[2022-07-27 02:14] VITALS: BP 127/48
[2022-07-27 02:17] VITALS: BMI 41.8
[2022-07-27] MEDS: Arthritis Pain Compound 60 CLICK TUBE TOPICAL ×3 (04:58→20:33)
[2022-07-27] MEDS: Acetaminophen 500 MG Tablet 1000 MG PO ×3 (04:59→20:32)
[2022-07-27] MEDS: Menthol/Lanolin/Calamine/Znox 113 GM Tube 1 APPLIC TOPICAL ×2 (05:06→20:41)
[2022-07-27 05:14] VITALS: BMI 41.5
[2022-07-27 06:02] LABS: ALB/GLOB Ratio 0.5 RATIO (0.9-2.4); AST(SGOT) 33 U/L (15-37); Alanine Aminotransfer ALT/SGPT 54 U/L (16-61); Albumin, Serum 2.3 g/dL (3.2-5.0); Alkaline Phosphatase 117 U/L (45-117); Anion Gap 6 (5-15); BUN 8 mg/dL (7-18); BUN/Creat Ratio 13.3 RATIO (10-20); Chloride 111 mmol/L (98-107); EST Glomerular Filtration Rate 147 mL/min (>60); Est Glom Filt Rate - Afr Amer 178 mL/min (>60); Estimated Creatinine Clearance 160.39 ml/min; Globulin 5.1 g/dL (2.2-4.2); Glucose 95 mg/dL (74-106); Potassium 3.7 mmol/L (3.5-5.1); Protein, Total 7.4 g/dL (6.4-8.2); Sodium Level 141 mmol/L (136-145)
[2022-07-27 06:50] VITALS: PULSE 78; RESP 18; O2SAT 94
[2022-07-27] MEDS: Folic Acid 1 MG Tablet PO (07:56)
[2022-07-27] MEDS: Potassium Chloride Oral Tablet 20 MEQ PO (07:56)
[2022-07-27] MEDS: Fenofibrate 48 MG Tablet PO (07:57)
[2022-07-27] MEDS: Enoxaparin 40 MG/0.4 ML Syringe SC ×2 (07:57→20:32)
[2022-07-27] MEDS: Aspirin E.C. 81 MG Tablet PO (07:57)
[2022-07-27] MEDS: amLODIPine 10 MG Tablet PO (07:57)
[2022-07-27] MEDS: Venlafaxine XR 75 MG Capsule PO (07:57)
[2022-07-27] MEDS: Clopidogrel Bisulfate 75 MG Tablet PO (07:59)
[2022-07-27] MEDS: Hydroxychloroquine 200 MG Tablet PO ×2 (07:59→20:32)
[2022-07-27 08:00] VITALS: BP 140/60; PULSE 76; RESP 16; TEMP 36.7; O2SAT 93
[2022-07-27] MEDS: Pantoprazole Sodium 40 MG Tablet PO (08:00)
[2022-07-27] MEDS: Allopurinol 300 MG Tablet PO (08:01)
[2022-07-27] MEDS: Allopurinol 100 MG Tablet PO (08:01)
[2022-07-27] MEDS: Lisinopril 20 MG Tablet PO (08:01)
--- NOTE | 2022-07-27 10:31 | PN_ITS ---
Subjective Subjective Al was seen on team rounds today. Shani was present in the room for rounds. Afebrile VSS Maintaining appropriate oxygen saturation on RA Oral intake is good. Fluid intake is good. Discussed with nursing - Slept only intermittently last night. Has some spasticity. Medication list reviewed. Stool is heme + All lab from this morning was personally reviewed. Sodium is 141 and the potassium today is 3.7. The BUN is 8 with a stable creatinine at 0.6. LFTs are now normal. Calcium is normal. Al tells me that his back pain is improved and when I asked him if he felt his pain regimen is adequate he said yes. He feels better when he gets up and walks. He denies headache, shortness of breath, cough, chest pain, palpitations, lightheadedness, nausea/vomiting/abdominal pain, calf tenderness, dysuria. He did not sleep well last night but prior to that was sleeping okay. Appetite is good. He is very cooperative with therapy and has a strong desire to get better and go home. , Shain, is very supportive. He is tolerating fracture with no adverse side effects. Objective Data Objective Data Vital Signs: Vital Signs Temp Pulse Resp BP Pulse Ox O2 Del Method O2 Flow Rate 98.0 F 76 16 140/60 H 93 Room Air 2 07/27/22 08:00 07/27/22 08:00 07/27/22 08:00 07/27/22 08:00 07/27/22 08:00 07/27/22 08:00 07/27/22 02:00 Oxygen Flow Rate (L/min) 2 Oxygen Delivery Method Room Air Weight: 334 lb 10.587 oz Body Mass Index (BMI) 41.5 Intake & Output: Intake and Output for Last 24 Hours 07/25/22 07/26/22 07/27/22 23:59 23:59 23:59 Intake Total 1446 / 1446 2086 / 2086 824 / 824 Output Total 600 / 600 1175 / 1175 875 / 875 Balance 846 / 846 911 / 911 -51 / -51 Lab / Micro Data Result Diagrams: 07/28/22 05:31 07/28/22 05:31 Labs: Laboratory Results - last 24 hr 07/27/22 05:25: Sodium 141, Potassium 3.7, Chloride 111 H, Carbon Dioxide 24.0, Anion Gap 6, BUN 8, Creatinine 0.60 L, Estim Creat Clear Calc 160.39, Est GFR (M DRD) Af Amer 178, Est GFR (MDRD) Non-Af 147, BUN/Creatinine Ratio 13.3, Glucose 95, Calcium 9.0, Total Bilirubin 0.30, AST 33, ALT 54, Alkaline Phosphatase 117, Total Protein 7.4, Albumin 2.3 L, Globulin 5.1 H, Albumin/Globulin Ratio 0.5 L Micro: Microbiology 07/24/22 18:35 Stool Stool Occult Blood (MARIA T) - Final Occult Blood Positive Physical Exam Const alert, oriented x3 and no apparent distress Constitutional Narrative: Lying in bed and appears comfortable. Making good eye contact and is attentive to what is being said. General Appearance: cooperative Eyes PERRL and EOMs intact bilaterally Resp normal respiratory effort and clear to auscultation bilaterally Effort and Inspection: Negative for tachypneic or labored Cardio regular rate, regular rhythm and no gallops GI normal to inspection, nondistended, normoactive bowel sounds, soft to palpation and non-tender GI Narrative: No guarding with palpation. Extremity no calf tenderness Skin General Skin Exam: no breakdown Rashes: no rashes Psych cooperative and affect normal Appearance: appropriate Assessment & Plan Assessment/Plan (1) Physical debility: (2) Stroke/cerebrovascular accident: PLAN: R MCA M1 and M2 - S/P EVT on 07/11/22 at [facility] by Dr. Warner. Received thrombolytic. (3) Postprocedural state: (4) PFO (patent foramen ovale): (5) SAH (subarachnoid hemorrhage): PLAN: post thrombolytic (6) Aortic valve vegetation: PLAN: BC's negative ( got antibiotics before the vegetation was identified). (7) Endocarditis: PLAN: On Unasyn and daptomycin (8) S/P PICC central line placement: (9) Severe aortic valve regurgitation: PLAN: 3+ to 4+ (10) Left atrial enlargement: (11) DVT of lower limb, acute: PLAN: R gastrocnemius (12) Peripheral vascular disease: PLAN: R popliteal (13) Presence of arterial stent: PLAN: angioplasty and stent to the R popliteal A. on 06/29/22 at [facility] (14) Superficial thrombophlebitis: PLAN: While are CCAG.....suspected to be due to an IV infiltrating. (15) Normocytic hypochromic anemia: (16) Rheumatoid arthritis: PLAN: Treated by PCP. Has never seen a manager air and has not had a recent eye exam on Plaquenil. (17) Prediabetes: (18) Class 3 obesity: (19) Hyperuricemia: PLAN: UA is 4.7 today. No tophi (20) Gout: (21) Hypertension: (22) Abnormal LFTs: (23) Hypoalbuminemia: (24) Elevated TSH: (25) CATHY (obstructive sleep apnea): PLAN: Stop Bang score is 7. High risk for CATHY. Should have a formal sleep study post DC. (26) Chronic back pain: PLAN: Plan 1. Continue therapy 2. Repeat venous ultrasound of the right lower extremity tomorrow 3. recommended he see an oral surgeon SAUL after discharge to have rotten teeth extracted........likely source of infection causing endocarditis. 4. Continue Unasyn and daptomycin 5. Weekly CBC with differential, BMP, ESR and CRP 6. Consult Dr. Riojas from ID to follow AL while he is in acute rehab 7. Will need the PFO closed in the future. 8. Continue enoxaparin 40 mg subcu every 12 hours 9. Needs follow up with ophthalmology after DC from rehab - he is taking Plaquenil and needs a yearly eye exam while on this medication. 10 Encouraged him to consider following up with rheumatology post DC. Charges/Coding Visit Charges Inpatient E&M: 99669 Subs Hosp L2
[2022-07-27] MEDS: Baclofen 10 MG Tablet 5 MG PO ×2 (11:03→20:32)
[2022-07-27] MEDS: 0.9% Saline Lock 10 ML Syringe IV ×2 (11:04→17:17)
[2022-07-27] MEDS: Nystatin Powder 15gm Bottle 1 APPLIC TOPICAL ×2 (11:05→20:40)
[2022-07-27 12:48] VITALS: BMI 41.5
--- NOTE | 2022-07-27 14:51 | CASEMGMT ---
Social Work IDT met with patient and for Team meeting. Discussed patient's progress in PT/OT/ST/SN. Educated to commercial insurance with NRD 07/30 and continued stay is not guaranteed with each review. Pt is on IV ATB for 6 weeks. The goal is for the pt to remain on RU for continued therapy and medical treatment, then finish the IV ATB in a SNF with insurance coverage. Will ReTeam weekly. SW to continue to follow for DC planning. Samaria Ellington, RADIATION THERAPIST ART EDUCATOR
--- NOTE | 2022-07-27 15:56 | CON.PCM.SX_ITS ---
Assessment & Plan Assessment/Plan (1) DVT of lower limb, acute: PLAN: -infrapopliteal DVT with recent intracranial hemorrhage, stroke -also with PFO -given recent SAH would not anticoagulate -risk for significant VTE very low with infrapopliteal DVT so would recommend serial duplex at 3,10, 30 days and if propagation then place filter HPI Consult Data Date of Consult: 07/27/22 HPI Narrative HPI Narrative: PHILIP DU, is a 57 M who presents after right hemispheric stroke that manif ested as left facial droop. Underwent mechanical thrombectomy as [facility]. Was also found to have SAH. Echo revealed valvular vegetation as well as PFO. He is currently in rehab and a duplex revealed right gastrocnemius DVT; patient thinks maybe this was also imaged at other facility as well but uncertain. No prior DVT, thinks he was previously on anticoagulation for something but not sure when. [facility] Medical History Chronic back pain Class 3 obesity Family history of heart disease Former smoker Gout Hearing loss, left Hypertension Peripheral vascular disease PFO (patent foramen ovale) Presence of arterial stent Rheumatoid arthritis Stroke/cerebrovascular accident Home Medications Acetaminophen Pain Relief 500 mg PO/SL Q8H PRN PRN Pain 07/23/22 [History Last Taken Unknown] Cubicin 900 mg IVPB DINNER ATB 07/23/22 [History Last Taken 07/23/22 17:52] albuterol sulfate 90 mcg/actuation aerosol inhaler 90 mcg inhalation Q6H PRN PRN Shortness Of Breath Or Wheezing 07/23/22 [History Last Taken Unknown] allopurinol 100 mg tablet 100 mg PO DAILY GOUT 07/23/22 [History Last Taken Unknown] allopurinol 300 mg tablet 300 mg PO DAILY GOUT 07/23/22 [History Last Taken 07/23/22] amlodipine 10 mg PO/SL DAILY HTN 07/23/22 [History Last Taken 07/23/22] ampicillin-sulbactam 3 g IVPB Q6H ATB 07/23/22 [History Last Taken 07/23/22 17:23] aspirin 81 mg PO/SL DAILY HEART 07/23/22 [History Last Taken 07/23/22] atorvastatin 40 mg PO/SL QHS HIGH CHOLESTEROL 07/23/22 [History Last Taken 07/22/22 21:22] baclofen 5 mg tablet 5 mg PO 2XD PRN MUSCLE CRAMPS 07/23/22 [History Last Taken 07/23/22] clopidogrel 75 mg tablet 75 mg PO DAILY BLOOD THINNER 07/23/22 [History Last Taken 07/23/22] enalapril maleate 20 mg tablet 20 mg PO DAILY HTN 07/23/22 [History Last Taken 07/23/22] fenofibrate 54 mg tablet 54 mg PO DAILY HYPERTRIGLYCERIDEMIA 07/23/22 [History Last Taken Unknown] folic acid 1 mg tablet 1 mg PO DAILY ANEMIA 07/23/22 [History Last Taken 07/23/22] hydroxychloroquine 200 mg tablet 200 mg PO BID ARTHRITIS 07/23/22 [History Last Taken Unknown] oxycodone 5 mg tablet 5 mg PO Q6H PRN PRN PAIN 07/23/22 [History Last Taken 07/23/22 14:44] polyethylene glycol 3350 17 g PO/SL DAILY CONSTIPATION 07/23/22 [History Last Taken 07/22/22 08:10] senna-docusate sodium 8.6 - 50 mg PO/SL BID STOOL SOFTENER 07/23/22 [History Last Taken 07/22/22] Allergy/AdvReac Type Severity Reaction Status Date / Time cephalexin Allergy Shortness Verified 07/23/22 20:24 of breath Surgical History H/O hand surgery History of bowel resection Hx of total knee arthroplasty Postprocedural state Social History Smoking Status: Former smoker ROS Constitutional Constitutional: Reports weight loss; Denies chills, fever(s), frequent falls, lethargy or weakness Eyes Eyes: Denies blind spots, change in vision or loss of vision ENT HEENT: Denies bleeding gums, hoarseness or sore throat Cardiovascular Cardiovascular: Denies abdominal pain, bluish discoloration of hand/feet, claudication, cold extremities, cyanosis, erythema on extremities, irregular heart rhythm, leg edema, leg ulcers, numbness in extremities or weakness in extremities Respiratory/Chest Respiratory/Chest: Denies cough, excessive phlegm production, shortness of breath at rest, shortness of breath with exertion or wheezing Gastrointestinal Gastrointestinal: Denies anorexia, change in stool character, constipation, diarrhea, melena or rectal bleeding Genitourinary Genitourinary: Denies dysuria or hematuria Musculoskeletal Musculoskeletal: Denies abnormal gait Integumentary Integumentary: Denies erythema, non-healing lesions or wounds Neurologic Neurologic: Reports headache(s); Denies abnormal speech, focal weakness, loss of vision, numbness, paresthesias or sensory deficit Hematologic/Lymphatic Hematologic/Lymphatic: Denies easy bleeding, easy bruising or lymphadenopathy Physical Exam Const alert, oriented x3, no apparent distress and healthy appearing General Appearance: cooperative; Negative for combative or lethargic Orientation / Consciousness: awake Exam Limitations: no limitations HEENT Head and Scalp: normocephalic and atraumatic Eyes EOMs intact bilaterally General Eye: normal appearance of both eyes Neck full ROM General: trachea midline Resp normal respiratory effort and no use of accessory muscles Effort and Inspection: Negative for labored, stridor or audible wheezes Cardio regular rate and regular rhythm Back/Spine Cervical Spine: cervical ROM normal Extremity full ROM, normal capillary refill and no clubbing, cyanosis or edema Skin no rashes or lesions noted and no wounds Neuro oriented x3, no focal motor deficits and no sensory deficits noted Psych thought process normal, cooperative, affect normal, speech normal and activity/motor behavior normal Lab / Micro Data Result Diagrams: 07/25/22 06:50 07/27/22 05:25 Labs: Laboratory Results - last 24 hr 07/27/22 05:25: Sodium 141, Potassium 3.7, Chloride 111 H, Carbon Dioxide 24.0, Anion Gap 6, BUN 8, Creatinine 0.60 L, Estim Creat Clear Calc 160.39, Est GFR (MDRD) Af Amer 178, Est GFR (MDRD) Non-Af 147, BUN/Creatinine Ratio 13.3, Glucose 95, Calcium 9.0, Total Bilirubin 0.30, AST 33, ALT 54, Alkaline Phosphatase 117, Total Protein 7.4, Albumin 2.3 L, Globulin 5.1 H, Albumin/Globulin Ratio 0.5 L Charges/Coding Visit Charges Inpatient E&M: 75180 Init Hosp L2
[2022-07-27 19:35] VITALS: BP 152/62; PULSE 80; RESP 18; TEMP 37; O2SAT 95
[2022-07-27] MEDS: Atorvastatin Calcium 40 MG Tablet PO (20:32)
[2022-07-28] MEDS: 0.9% Saline Lock 10 ML Syringe IV ×3 (00:07→17:46)
[2022-07-28 00:24] VITALS: BMI 41.5
[2022-07-28] MEDS: Acetaminophen 500 MG Tablet 1000 MG PO ×3 (05:33→20:49)
[2022-07-28] MEDS: Arthritis Pain Compound 60 CLICK TUBE TOPICAL ×3 (05:34→20:47)
[2022-07-28] MEDS: Menthol/Lanolin/Calamine/Znox 113 GM Tube 1 APPLIC TOPICAL ×2 (05:35→20:50)
[2022-07-28 05:40] LABS: Absolute Lymphocyte Count 1.41 X10^3/uL (0.83-4.51); Absolute Neutrophil Count 6.3 X10^3/uL (2.0-7.7); Basophil# 0.05 X10^3/uL; Basophil% 0.6 % (0-1); Eosinophil# 0.31 X10^3/uL; Eosinophils% 3.6 % (0-5); Hematocrit 29.2 % (40-54); Hemoglobin 8.9 g/dL (13.0-16.5); Lymphocyte # 1.41 X10^3/ul (0.83-4.51); Lymphocyte % 16.2 % (19-41); Mean Corp Hgb Conc 30.5 g/dL (32-36); Mean Corpuscular Hgb 25.6 pg (27.0-32.0); Mean Corpuscular Volume 84.1 fL (80-94); Mean Platelet Vol. 10.2 fl (6.2-12.0); Monocyte# 0.55 X10^3/uL; Monocyte% 6.3 % (0-10); NRBC Flagged by Analyzer 0 % (0-5); Neutrophil # 6.29 X10^3/uL (2.7-7.7); Neutrophil % 72.5 % (47-70); Platelet Count 474 K/mm3 (150-450); RBC Distribution Width CV 15.9 % (11.6-14.6); Red Blood Count 3.47 M/mm3 (4.6-6.2); White Blood Count 8.7 K/mm3 (4.4-11.0)
[2022-07-28 06:00] VITALS: BMI 41.1
[2022-07-28 06:12] LABS: CPK Total, Creatine Kinase 69 U/L (39-308); EST Glomerular Filtration Rate 147 mL/min (>60); Est Glom Filt Rate - Afr Amer 178 mL/min (>60); Estimated Creatinine Clearance 160.39 ml/min
[2022-07-28] MEDS: Albuterol 2.5 MG/3 ML VIAL.NEB. INHALATION ×2 (06:55→19:47)
[2022-07-28 07:15] VITALS: PULSE 82; RESP 18; O2SAT 92
--- NOTE | 2022-07-28 08:00 | VDLE_ITS ---
Reason For Study: pain RIGHT LEFT GSV is normal. CFV is compressible, spontaneous, phasic, CFV is compressible, spontaneous, phasic, competent, and demonstrates normal competent and demonstrates normal augmentation. augmentation. FV is compressible, spontaneous, phasic, competent and demonstrates normal augmentation. POP V is compressible, spontaneous, phasic, competent and demonstrates normal augmentation. T/P Trunk is compressible. PTV is compressible. RT PerV is compressible. Acute deep vein thrombosis is noted in the Gastrocnemius Vein. It is dilated and NONCOMPRESSIBLE. Acute deep vein thrombosis is noted in the Soleus Vein. It is dilated and NONCOMPRESSIBLE. Soleus Vein clot is a new finding from previous study done 07/24/22. Procedure This is a venous duplex using B-mode, color flow and spectral Doppler. Exam performed portable in patient room. The exam was diagnostic. A preliminary report was called and/or faxed to the pt's RN. VL/Venous Duplex US, Unilateral Interpretation Summary Acute deep vein thrombosis is noted in the right gastrocnemius vein, unchanged Acute deep vein thrombosis is noted in the right soleus vein, new from prior st udy. Ordering Physician: Sylvie Plata Performed By: Sedrick Cowan RVT
[2022-07-28 08:49] VITALS: BP 130/49; PULSE 83; RESP 20; TEMP 36.8; O2SAT 93
[2022-07-28] MEDS: Baclofen 10 MG Tablet 5 MG PO ×2 (09:21→20:46)
[2022-07-28] MEDS: Aspirin E.C. 81 MG Tablet PO (09:21)
[2022-07-28] MEDS: Allopurinol 300 MG Tablet PO (09:21)
[2022-07-28] MEDS: Potassium Chloride Oral Tablet 20 MEQ PO (09:21)
[2022-07-28] MEDS: Folic Acid 1 MG Tablet PO (09:21)
[2022-07-28] MEDS: Venlafaxine XR 75 MG Capsule PO (09:21)
[2022-07-28] MEDS: Pantoprazole Sodium 40 MG Tablet PO (09:22)
[2022-07-28] MEDS: Lisinopril 20 MG Tablet PO (09:22)
[2022-07-28] MEDS: Senna/Docusate Sodium 1 Tablet PO ×2 (09:22→20:46)
[2022-07-28] MEDS: Fenofibrate 48 MG Tablet PO (09:22)
[2022-07-28] MEDS: amLODIPine 10 MG Tablet PO (09:22)
[2022-07-28] MEDS: Hydroxychloroquine 200 MG Tablet PO ×2 (09:22→20:46)
[2022-07-28] MEDS: Clopidogrel Bisulfate 75 MG Tablet PO (09:22)
[2022-07-28] MEDS: Allopurinol 100 MG Tablet PO (09:23)
[2022-07-28] MEDS: Enoxaparin 40 MG/0.4 ML Syringe SC (09:23)
[2022-07-28] MEDS: Nystatin Powder 15gm Bottle 1 APPLIC TOPICAL ×2 (09:27→20:49)
[2022-07-28] MEDS: oxyCODONE 5 MG Tablet PO ×2 (10:10→20:46)
[2022-07-28 14:04] VITALS: BMI 41.1
--- NOTE | 2022-07-28 15:16 | PCM.PROGNOTE ---
Subjective Subjective Afebrile VSS Maintaining appropriate oxygen saturation on RA while awake Oral intake is good Discussed with nursing - no problems that need addressed Reviewed the PT/OT/ST notes Medication list reviewed. Rates his back pain at 6/10 currently but, tells me that the pain in his legs is better than at admission. Slept so-so last night. He denies chest pain, shortness of breath at rest, cough, cephalgia, calf pain, dysuria and lightheadedness. All lab drawn this morning was personally reviewed. Hemoglobin is stable at 8.9 and the white blood cell count is normal at 8.7. Platelet count is mildly increased at 474. Creatinine is 0.6 and stable. Total CK is 69. LFTs are normal. The venous US of the RLE today showed the clot in the gastrocnemius vein to still be present and he has a new clot in the soleus vein despite Lovenox 40 mg SQ twice daily. Objective Data Objective Data Vital Signs: Vital Signs Temp Pulse Resp BP Pulse Ox O2 Del Method O2 Flow Rate 98.2 F 83 20 H 130/49 H 93 Room Air 2 07/28/22 08:49 07/28/22 08:49 07/28/22 08:49 07/28/22 08:49 07/28/22 08:49 07/28/22 08:49 07/27/22 02:00 Oxygen Flow Rate (L/min) 2 Oxygen Delivery Method Room Air Weight: 330 lb 7.567 oz Body Mass Index (BMI) 41.1 Intake & Output: Intake and Output for Last 24 Hours 07/26/22 07/27/22 07/28/22 23:59 23:59 23:59 Intake Total 2086 / 2086 2473.25 / 2473.25 811.50 / 811.50 Output Total 1175 / 1175 2425 / 2700 550 / 550 Balance 911 / 911 48.25 / -226.75 261.50 / 261.50 Lab / Micro Data Result Diagrams: 07/28/22 05:31 07/28/22 05:31 Labs: Laboratory Results - last 24 hr 07/28/22 05:31: WBC 8.7, RBC 3.47 L, Hgb 8.9 L, Hct 29.2 L, MCV 84.1, MCH 25.6 L, MCHC 30.5 L, RDW Std Deviation 49.0 H, RDW Coeff of Ghassan 15.9 H, Plt Count 474 H, MPV 10.2, Immature Gran % (Auto) 0.800, Neut % (Auto) 72.5 H, Lymph % (Auto) 16.2 L, Scott % (Auto) 6.3, Eos % (Auto) 3.6, Baso % (Auto) 0.6, Absolute Neuts (auto) 6.3, Absolute Lymphs (auto) 1.41, Nucleated RBC % 0 07/28/22 05:31: Creatinine 0.60 L, Estim Creat Clear Calc 160.39, Est GFR (MDRD) Af Amer 178, Est GFR (MDRD) Non-Af 147, Total Creatine Kinase 69 Micro: Microbiology 07/24/22 18:35 Stool Stool Occult Blood (MARIA T) - Final Occult Blood Positive Physical Exam Const alert and oriented x3 Constitutional Narrative: Lying in bed and appears comfortable. Making good eye contact and is attentive to what is being said. General Appearance: cooperative HEENT normocephalic and head/scalp atraumatic Eyes PERRL and EOMs intact bilaterally Eyes Narrative: No scleral icterus, no conjunctival injection, no discharge from the eye, sclera is normal. Neck supple Neck Narrative: Thick short neck General: trachea midline Resp clear to auscultation bilaterally Resp Narrative: Denies chest pain and hemoptysis. He is not tachypneic. Effort and Inspection: Negative for tachypneic or labored Auscultation: wheezes and diminished lung sounds Cardio regular rate, regular rhythm and no gallops Cardio Narrative: Distant Heart sounds. GI normal to inspection, nondistended, normoactive bowel sounds, soft to palpation and non-tender GI Narrative: Stool is Hemoccult positive. Hemoglobin is stable. Extremity no calf tenderness Extremity Narrative: Mild right calf pain with squeezing his calf. Skin no jaundice General Skin Exam: no breakdown Rashes: no rashes Neuro Neuro Narrative: Trace Left facial droop. Speech: speech normal Psych cooperative, affect normal, denies homicidal ideation and denies suicidal ideation Psych Narrative: seems overwhelmed with all that is going on with him the past month. Appearance: appropriate Attitude: No agitated Assessment & Plan Assessment/Plan (1) Physical debility: (2) Stroke/cerebrovascular accident: PLAN: R MCA M1 and M2 - S/P EVT on 07/11/22 at [facility] by Dr. Warner. Received thrombolytic. (3) PFO (patent foramen ovale): (4) SAH (subarachnoid hemorrhage): PLAN: post thrombolytic (5) Aortic valve vegetation: PLAN: BC's negative ( got antibiotics before the vegetation was identified). (6) Endocarditis: PLAN: On Unasyn and daptomycin (7) Severe aortic valve regurgitation: PLAN: 3+ to 4+ (8) DVT of lower limb, acute: PLAN: R gastrocnemius on 07/24 and now with DVT in the Soleus V also (9) Presence of arterial stent: PLAN: angioplasty and stent to the R popliteal A. on 06/29/22 at [facility] (10) Normocytic hypochromic anemia: (11) Rheumatoid arthritis: PLAN: Treated by PCP. Has never seen a sport shoe spike assembler and has not had a recent eye exam on [facility]. (12) Hyperuricemia: PLAN: UA is 4.7 today. No tophi (13) Gout: (14) Hypertension: (15) Abnormal LFTs: PLAN: resolved (16) CATHY (obstructive sleep apnea): PLAN: Stop Bang score is 7. High risk for CATHY. Should have a formal sleep study post DC. (17) Chronic back pain: PLAN: Plan 1. Continue therapy 2. Consult Dr. Franc Donohue for temporary IVC filter. Until PFO is closed. 3. Repeat as CBC with diff, BMP, CPK, ESR and CRP every Wednesday while he is on Daptomycin and Unasyn. 4. Consult placed for Dr. Green. 5. Overnight trending pulse ox order placed. Charges/Coding Visit Charges Inpatient E&M: 58672 Subs Hosp L2
--- NOTE | 2022-07-28 17:21 | PN.SURG_ITS ---
Subjective Subjective Patient is doing well overall. Patient's Shani was also present at bedside. Patient denies CP, SOB, palpitations, new/worsening RLE pain. Objective Data Objective Data Vital Signs: Vital Signs Temp Pulse Resp BP Pulse Ox O2 Del Method O2 Flow Rate 98.2 F 83 20 H 130/49 H 93 Room Air 2 07/28/22 08:49 07/28/22 08:49 07/28/22 08:49 07/28/22 08:49 07/28/22 08:49 07/28/22 08:49 07/27/22 02:00 Oxygen Flow Rate (L/min) 2 Oxygen Delivery Method Room Air Weight: 330 lb 7.567 oz Body Mass Index (BMI) 41.1 Intake & Output: Intake and Output for Last 24 Hours 07/26/22 07/27/22 07/28/22 23:59 23:59 23:59 Intake Total 2086 / 2086 2473.25 / 2473.25 811.50 / 811.50 Output Total 1175 / 1175 2425 / 2700 550 / 550 Balance 911 / 911 48.25 / -226.75 261.50 / 261.50 Lab / Micro Data Result Diagrams: 07/28/22 05:31 07/28/22 05:31 Labs: Laboratory Results - last 24 hr 07/28/22 05:31: WBC 8.7, RBC 3.47 L, Hgb 8.9 L, Hct 29.2 L, MCV 84.1, MCH 25.6 L , MCHC 30.5 L, RDW Std Deviation 49.0 H, RDW Coeff of Ghassan 15.9 H, Plt Count 474 H, MPV 10.2, Immature Gran % (Auto) 0.800, Neut % (Auto) 72.5 H, Lymph % (Auto) 16.2 L, Haskell % (Auto) 6.3, Eos % (Auto) 3.6, Baso % (Auto) 0.6, Absolute Neuts (auto) 6.3, Absolute Lymphs (auto) 1.41, Nucleated RBC % 0 07/28/22 05:31: Creatinine 0.60 L, Estim Creat Clear Calc 160.39, Est GFR (MDRD) Af Amer 178, Est GFR (MDRD) Non-Af 147, Total Creatine Kinase 69 Micro: Microbiology 07/24/22 18:35 Stool Stool Occult Blood (MARIA T) - Final Occult Blood Positive Radiography Diagnostic Testing: Radiology Impression Venous Doppler Study 07/28/22 08:00 Interpretation Summary Acute deep vein thrombosis is noted in the right gastrocnemius vein, unchanged Acute deep vein thrombosis is noted in the right soleus vein, new from prior study. Ordering Physician: Sylvie Plata Performed By: Sedrick Cowan RVT Physical Exam Const alert, oriented x3 and no apparent distress General Appearance: cooperative; Negative for combative or lethargic Orientation / Consciousness: awake Exam Limitations: no limitations HEENT Head and Scalp: normocephalic and atraumatic Eyes EOMs intact bilaterally General Eye: normal appearance of both eyes Neck full ROM General: trachea midline Resp normal respiratory effort and no use of accessory muscles Effort and Inspection: Negative for labored, stridor or audible wheezes Cardio regular rate and regular rhythm Back/Spine Cervical Spine: cervical ROM normal Extremity full ROM, normal capillary refill and no clubbing, cyanosis or edema Skin no rashes or lesions noted and no wounds Neuro oriented x3, no focal motor deficits and no sensory deficits noted Psych thought process normal, cooperative, affect normal, speech normal and activity/motor behavior normal Assessment & Plan Assessment/Plan (1) DVT of lower limb, acute: (2) PFO (patent foramen ovale): (3) SAH (subarachnoid hemorrhage): PLAN: Plan With new clot on U/S today and at minimum several weeks before full-dose anticoagulation could be safely initiated it is reasonable to proceed with IVC f ilter placement. We discussed at length the risks/benefits of IVC filter placement. IVC filter will protect patient from embolization of large clots which could cause significant PE/, but may not protect from smaller clots which could still cause CVA given his PFO. We also discussed the possibility of filter removal should he be able to initiate anticoagulation at some point in the future and/or he resume normal activity thus minimizing risk of DVT. As this is a strong possibility for him we will ensure close outpatient follow-up for re-evaluation at regular intervals. Patient and his had all of their questions and concerns addressed. They were agreeable to proceed with IVC Filter placement. Patient has been scheduled in the kiln labou[facility] tomorrow 07/28/22 at 9:00 AM. He will need to be NPO after midnight. Hold AM lovenox dose. Continue ASA. Charges/Coding Visit Charges Inpatient E&M: 89654 Subs Hosp L2
[2022-07-28] MEDS: Gabapentin 100 MG Capsule 200 MG PO (17:46)
[2022-07-28 19:13] VITALS: BP 128/59; PULSE 63; RESP 14; TEMP 36.7; O2SAT 97
[2022-07-28 19:47] VITALS: PULSE 80; RESP 16
[2022-07-28] MEDS: Atorvastatin Calcium 40 MG Tablet PO (20:46)
--- NOTE | 2022-07-28 21:42 | NURSING ---
HOPE W/RESP MADE AWARE THAT PT IS TO HAVE OVERNIGHT POX.
[2022-07-28 22:19] VITALS: BMI 41.1
[2022-07-28 22:54] VITALS: PULSE 71; O2SAT 94
[2022-07-29] MEDS: 0.9% Saline Lock 10 ML Syringe IV ×5 (00:10→21:48)
[2022-07-29 06:00] VITALS: BMI 41.1
[2022-07-29 06:24] VITALS: O2SAT 91
[2022-07-29 08:10] VITALS: BP 140/52; PULSE 79; RESP 18; TEMP 37.3; O2SAT 93
--- NOTE | 2022-07-29 08:25 | NURSING ---
pt left the unit for procedure
--- NOTE | 2022-07-29 09:26 | PCM.OPRPT ---
Report of Operation Date of Procedure: 07/29/22 Pre-Operative Diagnosis: DVT Post-Operative Diagnosis: same Surgery/Procedure Performed:: insertion inferior vena cava filter Surgeon: Franc Donohue Type of Anesthesia: Local and Sedation,Conscious Estimated Blood Loss (mL): 2 Description of Procedure: HPI: Patient is a 57-year-old male who is currently admitted to the rehab unit after ischemic stroke with associated subarachnoid hemorrhage. He was found to have aortic valve vegetations which was suspected etiology of his stroke however he also has a patent foramen ovale. After admission to rehab he was found to have infrapopliteal DVT and he has contraindication to anticoagulation. He is currently on DVT chemoprophylaxis and repeat imaging revealed additional veins in the infrapopliteal vessels with DVT. He is felt to be high risk for propagation of possible embolic event and given his PFO is felt that a filter is appropriate. Description of procedure: Upon obtaining informed consent and verification correct patient procedure site patient was taken to the [facility] where he was positioned prepped and draped in usual sterile fashion. Timeout was performed and conscious sedation administered with Versed and fentanyl. Skin overlying the right common femoral vein was anesthetized with 1% lidocaine and the vessel accessed under ultrasound guidance with a micropuncture needle and wire. This was then exchanged for micropuncture sheath through which injection ilio caval venogram with 1 revealing satisfactory positioning with patent right iliac vein and inferior vena cava. The starter wire was then advanced through the micropuncture sheath and the micropuncture sheath exchanged for the Bard IVC filter delivery sheath. This was then positioned at the L2 vertebral body and subtraction venacavogram was performed revealed a patent and normal caliber vena cava as well as the position of the renal vein confluence. A Bard [place] inferior vena cava filter was then advanced and positioned below the lowest renal vein and deployed. Completion venacavogram confirmed satisfactory positioning with no significant tilt. The sheath was then withdrawn and manual pressure held for 5 minutes after which the patient was taken to recovery room with dissipated return to the rehab unit.
[2022-07-29] MEDS: amLODIPine 10 MG Tablet PO (11:47)
[2022-07-29] MEDS: Lisinopril 20 MG Tablet PO (11:48)
[2022-07-29] MEDS: Hydroxychloroquine 200 MG Tablet PO ×2 (11:48→21:38)
[2022-07-29] MEDS: Senna/Docusate Sodium 1 Tablet PO (11:48)
[2022-07-29] MEDS: Allopurinol 300 MG Tablet PO (11:48)
[2022-07-29] MEDS: Pantoprazole Sodium 40 MG Tablet PO (11:48)
[2022-07-29] MEDS: Allopurinol 100 MG Tablet PO (11:48)
[2022-07-29] MEDS: Clopidogrel Bisulfate 75 MG Tablet PO (11:48)
[2022-07-29] MEDS: Venlafaxine XR 75 MG Capsule PO (11:48)
[2022-07-29] MEDS: Nystatin Powder 15gm Bottle 1 APPLIC TOPICAL ×2 (11:57→21:50)
--- NOTE | 2022-07-29 12:16 | PN_ITS ---
Subjective Subjective Afebrile VSS-blood pressure was a little elevated this morning but he was quite anxious about the IVC filter. Maintaining appropriate oxygen saturation on RA Oral intake is good Discussed with nursing - no problems that need addressed Reviewed the PT/OT/ST notes Medication list reviewed. Al was seen and examined postprocedure. Vital signs are stable. He denies lightheadedness and also denies chest pain, shortness of breath, palpitations, dysuria. He is having some significant back pain currently however he has been n.p.o. since midnight and has not had his pain medication. Overall he states his pain is much better and is happy with the current pain regimen. L denies chest pain, shortness of breath at rest, palpitations, lightheadedness, nausea/vomiting, abdominal pain, dysuria and calf tenderness in either calf, despite the presence of clots in the right gastrocnemius and soleus veins. Objective Data Objective Data Vital Signs: Vital Signs Temp Pulse Resp BP Pulse Ox O2 Del Method O2 Flow Rate 99.2 F H 79 18 140/52 H 93 Room Air 2 07/29/22 08:10 07/29/22 08:10 07/29/22 08:10 07/29/22 08:10 07/29/22 08:10 07/29/22 08:10 07/27/22 02:00 Oxygen Flow Rate (L/min) 2 Oxygen Delivery Method Room Air Weight: 330 lb 14.621 oz Body Mass Index (BMI) 41.1 Intake & Output: Intake and Output for Last 24 Hours 07/27/22 07/28/22 07/29/22 23:59 23:59 23:59 Intake Total 2473.25 / 2473.25 1841.50 / 1841.50 407.00 / 407.00 Output Total 2425 / 2700 550 / 1450 1700 / 1700 Balance 48.25 / -226.75 1291.50 / 391.50 -1293.00 / -1293.00 Lab / Micro Data Result Diagrams: 08/03/22 05:40 08/03/22 05:40 Micro: Microbiology 07/24/22 18:35 Stool Stool Occult Blood (MARIA T) - Final Occult Blood Positive Radiography Diagnostic Testing: Radiology Impression Venous Doppler Study 07/28/22 08:00 Interpretation Summary Acute deep vein thrombosis is noted in the right gastrocnemius vein, unchanged Acute deep vein thrombosis is noted in the right soleus vein, new from prior study. Ordering Physician: Sylvie Plata Performed By: Sedrick Cowan, RVT Physical Exam Const alert, oriented x3 and no apparent distress General Appearance: cooperative HEENT moist oral mucous membranes Eyes PERRL and EOMs intact bilaterally Resp normal respiratory effort, no use of accessory muscles and clear to auscultation bilaterally Effort and Inspection: Negative for tachypneic or labored Auscultation: diminished lung sounds bilateral (suspect due to body habitus.) Cardio regular rate, regular rhythm and no gallops Cardio Narrative: No ectopy. GI normal to inspection, nondistended, normoactive bowel sounds, non-tender and non-distended GI Narrative: no guarding with palpation Extremity Negative for no calf tenderness General Extremity: Negative for edema Skin General Skin Exam: no breakdown Rashes: no rashes Psych affect normal Psych Narrative: Manan is cooperative, makes good eye contact, is sleeping well at night and has a good appetite. He feels encouraged by the progress that he is making in therapy and is no longer tearful. Assessment & Plan Assessment/Plan (1) Physical debility: (2) Stroke/cerebrovascular accident: PLAN: R MCA M1 and M2 - S/P EVT on 07/11/22 at [facility] by Dr. Warner. Received thrombolytic. (3) PFO (patent foramen ovale): (4) SAH (subarachnoid hemorrhage): PLAN: post thrombolytic (5) Aortic valve vegetation: PLAN: BC's negative ( got antibiotics before the vegetation was identified). (6) Endocarditis: PLAN: On Unasyn and daptomycin and Dr. Riojas added Doxycycline. (7) Severe aortic valve regurgitation: PLAN: 3+ to 4+ (8) DVT of lower limb, acute: PLAN: R gastrocnemius and R soleus......S/P temporary IVC filter. (9) Presence of arterial stent: PLAN: angioplasty and stent to the R popliteal A. on 06/29/[address] [facility] (10) Normocytic hypochromic anemia: (11) Rheumatoid arthritis: PLAN: Treated by PCP. 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 (12) Hyperuricemia: PLAN: UA is 4.7 today. No tophi (13) Gout: (14) Hypertension: (15) Abnormal LFTs: PLAN: resolved (16) CATHY (obstructive sleep apnea): PLAN: Stop Bang score is 7. High risk for CATHY. Should have a formal sleep study post DC. Abnnormal overnight trending pulse ox. (17) Chronic back pain: PLAN: Plan for the future is surgery. Knows that the PFO needs to be closed prior to that surgery and the endocarditis must be gone. ? whether or not will need AV surgery going forward in light of 3-4+ AR. PLAN: Plan 1. continue therapy. 2. Recheck lab weekly on Wednesday 3. Appreciate Dr. Riojas's input. 4. Will need to follow up with cardiology post DC from rehab. Charges/Coding Visit Charges Inpatient E&M: 81103 Subs Hosp L2
--- NOTE | 2022-07-29 13:40 | CON.PCM.ID_ITS ---
Assessment & Plan Assessment/Plan (1) Aortic valve vegetation: (2) Stroke/cerebrovascular accident: (3) Endocarditis: PLAN: Reviewed records from [facility]. ID was Dr. Zane Morgan. Pt with poor dentition, will check xray of teeth. Bcxs neg. Neg for bartonella or coxiella. Chlamydia pneumoniae IgG strongly (+) at 1:512, but IgM neg. Given how high the titer is and otherwise negative workup, will cont dapto/unasyn with stop date 08/25/22 but will also add iv doxycycline. Will follow, thank you HPI Consult Data Date of Consult: 07/29/22 HPI Narrative Reason for Consultation: endocarditis HPI Narrative: PHILIP DU, is a 57 M with h/o RA, htn, PAD, presented to [place] 07/11/22 with sudden onset L sided weakness and slurred speech. Sent to [facility], had thrombectomy done. TTE showed PFO. Had fever, and DEYVI showed 1.2cm aortic valve veg. ID donsulted, seen by Dr. Morgan. Workup neg, discharged to rehab on dapto/unasyn with planned stop date 08/25/22 for total 6 weeks abx. Feeling ok here, no fever, no n/v/d. Had IVC placed this AM due to DVT. Full ROS performed and neg except as noted above. [facility] Medical History Chronic back pain Class 3 obesity Family history of heart disease Former smoker Gout Hearing loss, left Hypertension Peripheral vascular disease PFO (patent foramen ovale) Presence of arterial stent Rheumatoid arthritis Stroke/cerebrovascular accident Home Medications Acetaminophen Pain Relief 500 mg PO/SL Q8H PRN PRN Pain 07/23/22 [History Last Taken Unknown] Cubicin 900 mg IVPB DINNER ATB 07/23/22 [History Last Taken 07/23/22 17:52] albuterol sulfate 90 mcg/actuation aerosol inhaler 90 mcg inhalation Q6H PRN PRN Shortness Of Breath Or Wheezing 07/23/22 [History Last Taken Unknown] allopurinol 100 mg tablet 100 mg PO DAILY GOUT 07/23/22 [History Last Taken U nknown] allopurinol 300 mg tablet 300 mg PO DAILY GOUT 07/23/22 [History Last Taken 07/23/22] amlodipine 10 mg PO/SL DAILY HTN 07/23/22 [History Last Taken 07/23/22] ampicillin-sulbactam 3 g IVPB Q6H ATB 07/23/22 [History Last Taken 07/23/22 17:23] aspirin 81 mg PO/SL DAILY HEART 07/23/22 [History Last Taken 07/23/22] atorvastatin 40 mg PO/SL QHS HIGH CHOLESTEROL 07/23/22 [History Last Taken 07/22 21:22] baclofen 5 mg tablet 5 mg PO 2XD PRN MUSCLE CRAMPS 07/23/22 [History Last Taken 07/23/22] clopidogrel 75 mg tablet 75 mg PO DAILY BLOOD THINNER 07/23/22 [History Last Taken 07/23/22] enalapril maleate 20 mg tablet 20 mg PO DAILY HTN 07/23/22 [History Last Taken 07/23/22] fenofibrate 54 mg tablet 54 mg PO DAILY HYPERTRIGLYCERIDEMIA 07/23/22 [History Last Taken Unknown] folic acid 1 mg tablet 1 mg PO DAILY ANEMIA 07/23/22 [History Last Taken 07/23/22] hydroxychloroquine 200 mg tablet 200 mg PO BID ARTHRITIS 07/23/22 [History Last Taken Unknown] oxycodone 5 mg tablet 5 mg PO Q6H PRN PRN PAIN 07/23/22 [History Last Taken 07/23/22 14:44] polyethylene glycol 3350 17 g PO/SL DAILY CONSTIPATION 07/23/22 [History Last Taken 07/22/22 08:10] senna-docusate sodium 8.6 - 50 mg PO/SL BID STOOL SOFTENER 07/23/22 [History Last Taken 07/22/22] Allergy/AdvReac Type Severity Reaction Status Date / Time cephalexin Allergy Shortness Verified 07/23/22 20:24 of breath Surgical History H/O hand surgery History of bowel resection Hx of total knee arthroplasty Postprocedural state Social History Smoking Status: Former smoker Physical Exam Const alert, oriented x3 and no apparent distress General Appearance: cooperative HEENT normocephalic and head/scalp atraumatic HEENT Narrative: Poor dentition, multiple cracked teeth Eyes PERRL and EOMs intact bilaterally Neck supple and No nodes Resp normal air movement and clear to auscultation bilaterally Cardio regular rate and regular rhythm Heart Sounds: murmur GI soft to palpation, non-tender and non-distended Extremity General Extremity: edema Skin no rashes or lesions noted Neuro Neuro Narrative: Some L facial droop Lab / Micro Data Attestation: I reviewed the patient's lab results. Result Diagrams: 07/28/22 05:31 07/28/22 05:31 Radiology Impression Venous Doppler Study 07/28/22 08:00 Interpretation Summary Acute deep vein thrombosis is noted in the right gastrocnemius vein, unchanged Acute deep vein thrombosis is noted in the right soleus vein, new from prior study. Ordering Physician: Sylvie Plata Performed By: Sedrick Cowan, RVT
[2022-07-29] MEDS: Baclofen 10 MG Tablet 5 MG PO ×2 (13:56→21:38)
[2022-07-29] MEDS: Arthritis Pain Compound 60 CLICK TUBE TOPICAL ×2 (13:56→21:44)
[2022-07-29] MEDS: Acetaminophen 500 MG Tablet 1000 MG PO ×2 (13:56→21:37)
[2022-07-29 15:22] VITALS: O2SAT 93
[2022-07-29] MEDS: Gabapentin 100 MG Capsule 200 MG PO (16:47)
[2022-07-29 17:00] VITALS: BMI 41.1
[2022-07-29 19:32] VITALS: BP 136/50; PULSE 81; RESP 18; TEMP 36.9; O2SAT 95
[2022-07-29] MEDS: Atorvastatin Calcium 40 MG Tablet PO (21:38)
[2022-07-29] MEDS: Menthol/Lanolin/Calamine/Znox 113 GM Tube 1 APPLIC TOPICAL (21:50)
[2022-07-29 22:00] VITALS: RESP 16
[2022-07-29] MEDS: oxyCODONE 5 MG Tablet PO (22:19)
[2022-07-29 22:39] VITALS: BMI 41.1
[2022-07-30] VITALS (7 sets, daily range): BP systolic 125–142; BP diastolic 50–63; PULSE 70–84; RESP 16–18; TEMP 36.5–36.7; O2SAT 93–96; BMI 40.9
[2022-07-30] MEDS: Acetaminophen 500 MG Tablet 1000 MG PO ×3 (05:53→22:06)
[2022-07-30] MEDS: Baclofen 10 MG Tablet 5 MG PO ×3 (05:53→22:05)
[2022-07-30] MEDS: Menthol/Lanolin/Calamine/Znox 113 GM Tube 1 APPLIC TOPICAL ×2 (05:54→22:07)
[2022-07-30] MEDS: Arthritis Pain Compound 60 CLICK TUBE TOPICAL ×3 (05:54→22:02)
[2022-07-30] MEDS: 0.9% Saline Lock 10 ML Syringe IV ×5 (06:07→22:01)
[2022-07-30] MEDS: Albuterol 2.5 MG/3 ML VIAL.NEB. INHALATION ×4 (06:52→19:32)
[2022-07-30] MEDS: Allopurinol 100 MG Tablet PO (08:14)
[2022-07-30] MEDS: Allopurinol 300 MG Tablet PO (08:14)
[2022-07-30] MEDS: Pantoprazole Sodium 40 MG Tablet PO (08:14)
[2022-07-30] MEDS: amLODIPine 10 MG Tablet PO (08:14)
[2022-07-30] MEDS: Clopidogrel Bisulfate 75 MG Tablet PO (08:14)
[2022-07-30] MEDS: Fenofibrate 48 MG Tablet PO (08:14)
[2022-07-30] MEDS: Aspirin E.C. 81 MG Tablet PO (08:14)
[2022-07-30] MEDS: Folic Acid 1 MG Tablet PO (08:14)
[2022-07-30] MEDS: Venlafaxine XR 75 MG Capsule PO (08:14)
[2022-07-30] MEDS: Hydroxychloroquine 200 MG Tablet PO ×2 (08:15→22:06)
[2022-07-30] MEDS: Nystatin Powder 15gm Bottle 1 APPLIC TOPICAL ×2 (08:15→22:39)
[2022-07-30] MEDS: Lisinopril 20 MG Tablet PO (08:16)
[2022-07-30] MEDS: Gabapentin 100 MG Capsule 200 MG PO ×2 (08:23→17:16)
--- NOTE | 2022-07-30 08:59 | RAD_ITS ---
STUDY: X-RAY - MANDIBLE (COMPLETE) REASON FOR EXAM: Male, 57 years old. Endocarditis, poor dentition TECHNIQUE: 5 view(s) of the mandible were obtained. COMPARISON: None. FINDINGS: Normal mandible. Normal visualized right temporomandibular joint. Normal visualized left temporomandibular joint. The remaining visualized osseous structures are normal. The soft tissue structures are unremarkable. RAD/Mandible Min 4 Views IMPRESSION: Normal x-ray examination of the mandible. Electronically Signed: Melvin Rankin MD at 9:33 EDT ,
[2022-07-30] MEDS: oxyCODONE 5 MG Tablet PO ×2 (09:21→19:52)
[2022-07-30] MEDS: Enoxaparin 40 MG/0.4 ML Syringe SC ×2 (10:18→22:07)
--- NOTE | 2022-07-30 18:00 | PCM.PN.SRG ---
Subjective Subjective Patient is doing well following IVC filter placement. No significant pain at the access site. No new or worsening swelling or pain of the RLE No CP, SOB, palpitations. Objective Data Objective Data Vital Signs: Vital Signs Temp Pulse Resp BP Pulse Ox O2 Del Method O2 Flow Rate 97.7 F L 70 18 142/63 H 96 Room Air 2 07/30/22 07:33 07/30/22 14:35 07/30/22 14:35 07/30/22 07:33 07/30/22 07:33 07/30/22 07:33 07/30/22 06:52 Oxygen Flow Rate (L/min) 2 Oxygen Delivery Method Room Air Weight: 329 lb 2.402 oz Body Mass Index (BMI) 40.9 Intake & Output: Intake and Output for Last 24 Hours 07/28/22 07/29/22 07/30/22 23:59 23:59 23:59 Intake Total 1841.50 / 1841.50 1698.50 / 1898.50 2416.00 / 2416.00 Output Total 550 / 1450 2100 / 2500 1300 / 1300 Balance 1291.50 / 391.50 -401.50 / -601.50 1116.00 / 1116.00 Lab / Micro Data Result Diagrams: 07/28/22 05:31 07/28/22 05:31 Micro: Microbiology 07/24/22 18:35 Stool Stool Occult Blood (MARIA T) - Final Occult Blood Positive Radiography Diagnostic Testing: Radiology Impression Mandible X-Ray 07/30/22 08:59 IMPRESSION: Normal x-ray examination of the mandible. Electronically Signed: Melvin Rankin MD at 9:33 EDT , Physical Exam Const alert, oriented x3 and no apparent distress General Appearance: cooperative; Negative for combative or lethargic Orientation / Consciousness: awake Exam Limitations: no limitations HEENT Head and Scalp: normocephalic and atraumatic Eyes EOMs intact bilaterally General Eye: normal appearance of both eyes Neck full ROM General: trachea midline Resp normal respiratory effort and no use of accessory muscles Effort and Inspection: Negative for labored, stridor or audible wheezes Cardio regular rate and regular rhythm Back/Spine Cervical Spine: cervical ROM normal Extremity full ROM, normal capillary refill and no clubbing, cyanosis or edema Extremity Narrative: R groin access site without bleeding, significant hematoma, swelling, bruising, erythema. Skin no rashes or lesions noted and no wounds Neuro oriented x3, no focal motor deficits and no sensory deficits noted Psych thought process normal, cooperative, affect normal, speech normal and activity/motor behavior normal Assessment & Plan Assessment/Plan (1) DVT of lower limb, acute: (2) PFO (patent foramen ovale): (3) SAH (subarachnoid hemorrhage): PLAN: Plan Patient is doing well s/p IVC filter placement. I discussed with patient that our office will call to arrange follow-up, like in 3-4 weeks. We will want to maintain close outpatient follow-up to determine if/when IVC filter can be retrieved. Please follow-up sooner if needed. Charges/Coding Visit Charges Inpatient E&M: 94965 Subs Hosp L2
[2022-07-30] MEDS: Atorvastatin Calcium 40 MG Tablet PO (22:06)
[2022-07-30] MEDS: Senna/Docusate Sodium 1 Tablet PO (22:06)
[2022-07-31] MEDS: Acetaminophen 500 MG Tablet 1000 MG PO ×3 (05:11→21:43)
[2022-07-31] MEDS: Arthritis Pain Compound 60 CLICK TUBE TOPICAL ×3 (05:12→21:33)
[2022-07-31] MEDS: Baclofen 10 MG Tablet 5 MG PO ×3 (05:12→21:44)
[2022-07-31] MEDS: Menthol/Lanolin/Calamine/Znox 113 GM Tube 1 APPLIC TOPICAL ×2 (05:12→22:17)
[2022-07-31] MEDS: oxyCODONE 5 MG Tablet PO ×2 (05:16→18:17)
[2022-07-31 06:00] VITALS: BMI 41.1
[2022-07-31 07:30] VITALS: PULSE 78; RESP 16; O2SAT 94
[2022-07-31] MEDS: Albuterol 2.5 MG/3 ML VIAL.NEB. INHALATION ×3 (07:30→19:00)
--- NOTE | 2022-07-31 07:30 | CPS ---
patient uses 2lpm nasal cannula at night.
[2022-07-31 07:51] VITALS: BP 138/55; PULSE 79; RESP 16; TEMP 36.6; O2SAT 97
[2022-07-31] MEDS: Senna/Docusate Sodium 1 Tablet PO ×2 (08:01→21:43)
[2022-07-31] MEDS: Folic Acid 1 MG Tablet PO (08:01)
[2022-07-31] MEDS: Allopurinol 100 MG Tablet PO (08:01)
[2022-07-31] MEDS: Clopidogrel Bisulfate 75 MG Tablet PO (08:01)
[2022-07-31] MEDS: Aspirin E.C. 81 MG Tablet PO (08:01)
[2022-07-31] MEDS: Pantoprazole Sodium 40 MG Tablet PO (08:01)
[2022-07-31] MEDS: Fenofibrate 48 MG Tablet PO (08:01)
[2022-07-31] MEDS: Lisinopril 20 MG Tablet PO (08:01)
[2022-07-31] MEDS: amLODIPine 10 MG Tablet PO (08:02)
[2022-07-31] MEDS: Enoxaparin 40 MG/0.4 ML Syringe SC ×2 (08:02→21:43)
[2022-07-31] MEDS: Hydroxychloroquine 200 MG Tablet PO ×2 (08:02→21:44)
[2022-07-31] MEDS: Venlafaxine XR 75 MG Capsule PO (08:03)
[2022-07-31] MEDS: Nystatin Powder 15gm Bottle 1 APPLIC TOPICAL ×2 (08:03→22:18)
[2022-07-31] MEDS: 0.9% Saline Lock 10 ML Syringe IV ×2 (08:11→21:51)
[2022-07-31] MEDS: Gabapentin 100 MG Capsule 200 MG PO ×2 (08:11→16:57)
[2022-07-31] MEDS: Allopurinol 300 MG Tablet PO (09:48)
[2022-07-31 10:34] VITALS: BMI 41.1
--- NOTE | 2022-07-31 14:06 | PN_ITS ---
Subjective Subjective Afebrile VSS Maintaining appropriate oxygen saturation on RA Oral intake is good Discussed with nursing - no problems that need addressed Reviewed the PT/OT/ST notes Medication list reviewed. Curtis tells me that his pain is adequately controlled with the current drug regimen. He is sleeping pretty well at night and has a good appetite. He denies chest pain, shortness of breath, palpitations, lightheadedness, abdominal pain, dysuria and calf pain. He denies pain of the right groin. He feels that he is making progress in therapy and is encouraged by this. Has been trying to lose weight the past few months and tells me that hehas beenmuch healthier in his food choices. Objective Data Objective Data Vital Signs: Vital Signs Temp Pulse Resp BP Pulse Ox O2 Del Method O2 Flow Rate 97.9 F 79 16 138/55 H 97 Room Air 2 07/31/22 07:51 07/31/22 07:51 07/31/22 07:51 07/31/22 07:51 07/31/22 07:51 07/31/22 07:51 07/30/22 06:52 Oxygen Flow Rate (L/min) 2 Oxygen Delivery Method Room Air Weight: 330 lb 11.094 oz Body Mass Index (BMI) 41.1 Intake & Output: Intake and Output for Last 24 Hours 07/29/22 07/30/22 07/31/22 23:59 23:59 23:59 Intake Total 1698.50 / 1898.50 2956.00 / 2956.00 1154.5 / 1154.5 Output Total 2100 / 2500 1550 / 1550 600 / 600 Balance -401.50 / -601.50 1406.00 / 1406.00 554.5 / 554.5 Lab / Micro Data Result Diagrams: 08/03/22 05:40 08/03/22 05:40 Micro: Microbiology 07/24/22 18:35 Stool Stool Occult Blood (MARIA T) - Final Occult Blood Positive Physical Exam Const alert General Appearance: cooperative HEENT moist oral mucous membranes Resp normal respiratory effort, no use of accessory muscles and clear to auscultation bilaterally Effort and Inspection: Negative for tachypneic or labored Cardio regular rate, regular rhythm and no gallops Cardio Narrative: No ectopy. Have not appreciated any AF when I have examined him since admission. He denies palpations and lightheadedness. GI normal to inspection, nondistended, normoactive bowel sounds, non-tender and non-distended GI Narrative: no guarding with palpation Extremity Negative for no calf tenderness Extremity Narrative: He does have mild edema of the ankles when he spends more time in the chair.....ETELVINA hose are in place. General Extremity: Negative for edema Skin General Skin Exam: no breakdown Rashes: no rashes Psych affect normal Assessment & Plan Assessment/Plan (1) Physical debility: (2) Stroke/cerebrovascular accident: PLAN: R MCA M1 and M2 - S/P EVT on 07/11/22 at [facility] by Dr. Warner. Received thrombolytic. (3) PFO (patent foramen ovale): (4) SAH (subarachnoid hemorrhage): PLAN: post thrombolytic (5) Aortic valve vegetation: PLAN: BC's negative ( got antibiotics before the vegetation was identified). (6) Endocarditis: PLAN: On Unasyn and daptomycin (7) Severe aortic valve regurgitation: PLAN: 3+ to 4+ (8) DVT of lower limb, acute: PLAN: R gastrocnemius on 07/24 and now with DVT in the S[place] V also (9) Presence of arterial stent: PLAN: angioplasty and stent to the R popliteal A. on 06/29/22 at [facility] (10) Normocytic hypochromic anemia: (11) Rheumatoid arthritis: PLAN: Treated by PCP. 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 (12) Hyperuricemia: PLAN: UA is 4.7 today. No tophi (13) Gout: (14) Hypertension: (15) Abnormal LFTs: PLAN: resolved (16) CATHY (obstructive sleep apnea): PLAN: Stop Bang score is 7. High risk for CATHY. Should have a formal sleep study post DC. (17) Chronic back pain: PLAN: Plan 1. continue therapy 2. IVC filter, temporary.......can be removed when it safe to anticoagulate. Will follow up with Dr. Donohue post DC. 3. No changes to the pain regimen at this time. Charges/Coding Visit Charges Inpatient E&M: 49348 Subs Hosp L2
[2022-07-31 15:42] VITALS: PULSE 89; RESP 16; O2SAT 95
[2022-07-31 19:00] VITALS: PULSE 84; RESP 18
[2022-07-31 19:53] VITALS: BP 145/66; PULSE 87; RESP 16; TEMP 36.9; O2SAT 94
[2022-07-31 20:06] VITALS: BMI 41.1
[2022-07-31] MEDS: Atorvastatin Calcium 40 MG Tablet PO (21:43)
[2022-07-31 22:00] VITALS: PULSE 85; RESP 16
[2022-08-01] MEDS: Arthritis Pain Compound 60 CLICK TUBE TOPICAL ×3 (05:15→20:28)
[2022-08-01] MEDS: Baclofen 10 MG Tablet 5 MG PO ×3 (05:17→20:32)
[2022-08-01] MEDS: Acetaminophen 500 MG Tablet 1000 MG PO ×3 (05:18→20:33)
[2022-08-01] MEDS: Menthol/Lanolin/Calamine/Znox 113 GM Tube 1 APPLIC TOPICAL ×2 (05:19→20:27)
[2022-08-01] MEDS: oxyCODONE 5 MG Tablet PO ×2 (05:39→20:32)
[2022-08-01 06:00] VITALS: BMI 41.1
[2022-08-01] MEDS: Albuterol 2.5 MG/3 ML VIAL.NEB. INHALATION ×3 (07:29→19:45)
[2022-08-01 07:33] VITALS: PULSE 88; RESP 19
[2022-08-01 07:51] VITALS: BP 136/59; PULSE 86; RESP 18; TEMP 37.1; O2SAT 94
[2022-08-01] MEDS: Venlafaxine XR 75 MG Capsule PO (09:13)
[2022-08-01] MEDS: Gabapentin 100 MG Capsule 200 MG PO ×2 (09:13→16:49)
[2022-08-01] MEDS: Clopidogrel Bisulfate 75 MG Tablet PO (09:14)
[2022-08-01] MEDS: Fenofibrate 48 MG Tablet PO (09:14)
[2022-08-01] MEDS: Folic Acid 1 MG Tablet PO (09:14)
[2022-08-01] MEDS: Pantoprazole Sodium 40 MG Tablet PO (09:14)
[2022-08-01] MEDS: Enoxaparin 40 MG/0.4 ML Syringe SC ×2 (09:14→20:35)
[2022-08-01] MEDS: Lisinopril 20 MG Tablet PO (09:14)
[2022-08-01] MEDS: amLODIPine 10 MG Tablet PO (09:14)
[2022-08-01] MEDS: Hydroxychloroquine 200 MG Tablet PO ×2 (09:14→20:36)
[2022-08-01] MEDS: Aspirin E.C. 81 MG Tablet PO (09:14)
[2022-08-01] MEDS: Allopurinol 100 MG Tablet PO ×2 (09:37→20:33)
[2022-08-01] MEDS: Allopurinol 300 MG Tablet PO (09:37)
[2022-08-01] MEDS: Nystatin Powder 15gm Bottle 1 APPLIC TOPICAL ×2 (09:38→20:27)
[2022-08-01] MEDS: 0.9% Saline Lock 10 ML Syringe IV ×4 (09:56→22:12)
[2022-08-01 12:34] VITALS: BMI 41.1
[2022-08-01 15:15] VITALS: PULSE 95; RESP 18
[2022-08-01 19:36] VITALS: BP 134/44; PULSE 79; RESP 18; TEMP 37; O2SAT 94
[2022-08-01 19:45] VITALS: PULSE 88; RESP 16; O2SAT 94
[2022-08-01 20:30] VITALS: BMI 41.1
[2022-08-01] MEDS: Senna/Docusate Sodium 1 Tablet PO (20:32)
[2022-08-01] MEDS: Atorvastatin Calcium 40 MG Tablet PO (20:33)
[2022-08-02] MEDS: Arthritis Pain Compound 60 CLICK TUBE TOPICAL ×3 (05:11→22:47)
[2022-08-02] MEDS: Acetaminophen 500 MG Tablet 1000 MG PO ×3 (05:12→22:49)
[2022-08-02] MEDS: Baclofen 10 MG Tablet 5 MG PO ×3 (05:13→22:48)
[2022-08-02] MEDS: Menthol/Lanolin/Calamine/Znox 113 GM Tube 1 APPLIC TOPICAL ×2 (05:19→22:47)
[2022-08-02 05:40] VITALS: BMI 41.3
[2022-08-02] MEDS: Albuterol 2.5 MG/3 ML VIAL.NEB. INHALATION ×3 (07:25→19:30)
--- NOTE | 2022-08-02 07:25 | CPS ---
patient uses O2 at night at 2lpm
[2022-08-02 07:40] VITALS: BP 130/51; PULSE 80; RESP 16; TEMP 36.6; O2SAT 95
[2022-08-02 07:45] VITALS: PULSE 66; RESP 18; O2SAT 97
[2022-08-02] MEDS: Clopidogrel Bisulfate 75 MG Tablet PO (08:21)
[2022-08-02] MEDS: Gabapentin 100 MG Capsule 200 MG PO ×2 (08:21→17:24)
[2022-08-02] MEDS: Aspirin E.C. 81 MG Tablet PO (08:21)
[2022-08-02] MEDS: Pantoprazole Sodium 40 MG Tablet PO (08:21)
[2022-08-02] MEDS: Hydroxychloroquine 200 MG Tablet PO ×2 (08:21→22:49)
[2022-08-02] MEDS: Venlafaxine XR 75 MG Capsule PO (08:21)
[2022-08-02] MEDS: Senna/Docusate Sodium 1 Tablet PO (08:22)
[2022-08-02] MEDS: amLODIPine 10 MG Tablet PO (08:22)
[2022-08-02] MEDS: Allopurinol 300 MG Tablet PO (08:23)
[2022-08-02] MEDS: Fenofibrate 48 MG Tablet PO (08:24)
[2022-08-02] MEDS: Enoxaparin 40 MG/0.4 ML Syringe SC ×2 (08:24→22:48)
[2022-08-02] MEDS: Nystatin Powder 15gm Bottle 1 APPLIC TOPICAL ×2 (08:25→22:49)
[2022-08-02] MEDS: Folic Acid 1 MG Tablet PO (08:25)
[2022-08-02] MEDS: Lisinopril 20 MG Tablet PO (08:27)
[2022-08-02] MEDS: 0.9% Saline Lock 10 ML Syringe IV (10:53)
[2022-08-02 11:13] VITALS: BMI 41.3
[2022-08-02 19:30] VITALS: PULSE 86; RESP 16; O2SAT 93
[2022-08-02] MEDS: oxyCODONE 5 MG Tablet PO (19:47)
[2022-08-02] MEDS: Atorvastatin Calcium 40 MG Tablet PO (22:48)
[2022-08-02 22:50] VITALS: BP 123/51; PULSE 78; RESP 16; TEMP 36.6; O2SAT 94
[2022-08-03 01:21] VITALS: BMI 41.3
[2022-08-03 05:51] LABS: Absolute Lymphocyte Count 1.51 X10^3/uL (0.83-4.51); Absolute Neutrophil Count 5.4 X10^3/uL (2.0-7.7); Basophil# 0.06 X10^3/uL; Basophil% 0.8 % (0-1); Eosinophil# 0.21 X10^3/uL; Eosinophils% 2.7 % (0-5); Hematocrit 28.8 % (40-54); Hemoglobin 8.5 g/dL (13.0-16.5); Lymphocyte # 1.51 X10^3/ul (0.83-4.51); Lymphocyte % 19.3 % (19-41); Mean Corp Hgb Conc 29.5 g/dL (32-36); Mean Corpuscular Hgb 25.2 pg (27.0-32.0); Mean Corpuscular Volume 85.5 fL (80-94); Mean Platelet Vol. 10.8 fl (6.2-12.0); Monocyte% 7.7 % (0-10); NRBC Flagged by Analyzer 0 % (0-5); Neutrophil # 5.41 X10^3/uL (2.7-7.7); Platelet Count 411 K/mm3 (150-450); RBC Distribution Width CV 16.6 % (11.6-14.6); RBC Distribution Width SD 52.1 fl (35.1-43.9); Red Blood Count 3.37 M/mm3 (4.6-6.2); White Blood Count 7.8 K/mm3 (4.4-11.0)
[2022-08-03 06:00] VITALS: BMI 41.1
[2022-08-03] MEDS: Menthol/Lanolin/Calamine/Znox 113 GM Tube 1 APPLIC TOPICAL ×2 (06:16→20:17)
[2022-08-03] MEDS: Arthritis Pain Compound 60 CLICK TUBE TOPICAL ×3 (06:16→20:17)
[2022-08-03] MEDS: Acetaminophen 500 MG Tablet 1000 MG PO ×3 (06:16→20:58)
[2022-08-03] MEDS: oxyCODONE 5 MG Tablet PO ×2 (06:16→19:58)
[2022-08-03] MEDS: Baclofen 10 MG Tablet 5 MG PO ×3 (06:17→20:20)
[2022-08-03] MEDS: Nystatin Powder 15gm Bottle 1 APPLIC TOPICAL ×2 (06:17→20:22)
[2022-08-03 06:30] LABS: Anion Gap 5 (5-15); BUN 7 mg/dL (7-18); BUN/Creat Ratio 11.5 RATIO (10-20); CPK Total, Creatine Kinase 46 U/L (39-308); Calcium,Total 9.1 mg/dL (8.5-10.1); Chloride 110 mmol/L (98-107); Creatinine, Serum 0.61 mg/dL (0.70-1.30); EST Glomerular Filtration Rate 144 mL/min (>60); Est Glom Filt Rate - Afr Amer 175 mL/min (>60); Estimated Creatinine Clearance 157.76 ml/min; Glucose 97 mg/dL (74-106); Potassium 3.6 mmol/L (3.5-5.1); Sodium Level 142 mmol/L (136-145)
[2022-08-03 07:29] VITALS: BP 140/55; PULSE 85; RESP 16; TEMP 36.7; O2SAT 93
[2022-08-03] MEDS: Pantoprazole Sodium 40 MG Tablet PO (08:12)
[2022-08-03] MEDS: Allopurinol 100 MG Tablet PO (08:12)
[2022-08-03] MEDS: Folic Acid 1 MG Tablet PO (08:12)
[2022-08-03] MEDS: Lisinopril 20 MG Tablet PO (08:12)
[2022-08-03] MEDS: Hydroxychloroquine 200 MG Tablet PO ×2 (08:13→20:23)
[2022-08-03] MEDS: Allopurinol 300 MG Tablet PO (08:13)
[2022-08-03] MEDS: Clopidogrel Bisulfate 75 MG Tablet PO (08:13)
[2022-08-03] MEDS: Venlafaxine XR 75 MG Capsule PO (08:13)
[2022-08-03] MEDS: amLODIPine 10 MG Tablet PO (08:13)
[2022-08-03] MEDS: Enoxaparin 40 MG/0.4 ML Syringe SC ×2 (08:13→20:22)
[2022-08-03] MEDS: Fenofibrate 48 MG Tablet PO (08:14)
[2022-08-03] MEDS: Aspirin E.C. 81 MG Tablet PO (08:14)
[2022-08-03] MEDS: Gabapentin 100 MG Capsule 200 MG PO ×2 (08:22→17:01)
--- NOTE | 2022-08-03 08:31 | CASEMGMT ---
Social Work IDT met with patient and for Team meeting. Discussed patient's progress in PT/OT/ST/SN. Educated to commercial insurance with [employer] 08/06 and continued stay is not guaranteed with each review. SW educated to pt needing the IV ATB multiple times throughout the day and to go home, pt's will need to learn to administer and be home with pt all day to administer the ATB. works full-time. Stop date is 08/25 currently. Pt and are agreeable. Will ReTeam next week. SW to continue to follow for discharge planning. Samaria Ellington, TAHIR MAJANOW
[2022-08-03 11:05] VITALS: PULSE 66; RESP 16; O2SAT 92
[2022-08-03] MEDS: Albuterol 2.5 MG/3 ML VIAL.NEB. INHALATION (11:05)
[2022-08-03] MEDS: 0.9% Saline Lock 10 ML Syringe IV ×2 (13:01→20:56)
[2022-08-03 15:27] VITALS: BMI 41.1
[2022-08-03 15:46] LABS: Erythrocyte Sedimentation Rate 61 mm/hr (0-20)
[2022-08-03 19:25] VITALS: BP 122/51; PULSE 78; RESP 18; TEMP 37.2; O2SAT 95
[2022-08-03 20:15] VITALS: BMI 41.1
[2022-08-03] MEDS: Atorvastatin Calcium 40 MG Tablet PO (20:21)
--- NOTE | 2022-08-03 20:31 | PN_ITS ---
Subjective Subjective Patient seen, examined on Team Rounds. Shani present. Patient has been doing well in therapy, he is progressing rapidly, but he is on 3 intravenous antibiotics thru 08/25/2022, which will make it difficult to transition home for home care. Objective Data Objective Data Vital Signs: Vital Signs Temp Pulse Resp BP Pulse Ox O2 Del Method O2 Flow Rate 98.9 F 78 18 122/51 H 95 Room Air 2 08/03/22 19:25 08/03/22 19:25 08/03/22 19:25 08/03/22 19:25 08/03/22 19:25 08/03/22 19:25 08/02/22 07:40 Oxygen Flow Rate (L/min) 2 Oxygen Delivery Method Room Air Weight: 150.2 kg Body Mass Index (BMI) 41.1 Intake & Output: Intake and Output for Last 24 Hours 08/01/22 08/02/22 08/03/22 23:59 23:59 23:59 Intake Total 2616 / 2616 2549.75 / 2549.75 1416 / 1416 Output Total 1575 / 1575 1325 / 1625 950 / 950 Balance 1041 / 1041 1224.75 / 924.75 466 / 466 Lab / Micro Data Result Diagrams: 08/03/22 05:40 08/03/22 05:40 Labs: Laboratory Results - last 24 hr 08/03/22 05:40: WBC 7.8, RBC 3.37 L, Hgb 8.5 L, Hct 28.8 L, MCV 85.5, MCH 25.2 L , MCHC 29.5 L, RDW Std Deviation 52.1 H, RDW Coeff of Ghassan 16.6 H, Plt Count 411, MPV 10.8, Immature Gran % (Auto) 0.500, Neut % (Auto) 69.0, Lymph % (Auto) 19.3, [place] % (Auto) 7.7, Eos % (Auto) 2.7, Baso % (Auto) 0.8, Absolute Neuts (auto) 5.4, Absolute Lymphs (auto) 1.51, Nucleated RBC % 0, ESR 61 H 08/03/22 05:40: Sodium 142, Potassium 3.6, Chloride 110 H, Carbon Dioxide 27.0, Anion Gap 5, BUN 7, Creatinine 0.61 L, Estim Creat Clear Calc 157.76, Est GFR (MDRD) Af Amer 175, Est GFR (MDRD) Non-Af 144, BUN/Creatinine Ratio 11.5, Glucose 97, Calcium 9.1, Total Creatine Kinase 46, C-React Prot Ext Range 32.20 H Micro: Microbiology 07/24/22 18:35 Stool Stool Occult Blood (MARIA T) - Final Occult Blood Positive Physical Exam Const alert General Appearance: cooperative HEENT normocephalic Eyes PERRL and EOMs intact bilaterally Neck supple, no JVD and no carotid bruits Resp normal respiratory effort, normal air movement and clear to auscultation bilaterally Cardio regular rate and regular rhythm GI normal to inspection, nondistended, normoactive bowel sounds, non-tender and non-distended Extremity normal capillary refill Extremity Narrative: Left upper extremity PICC line. General Extremity: Negative for edema Skin no rashes or lesions noted General Skin Exam: no breakdown Psych affect normal Appearance: appropriate Assessment & Plan Assessment/Plan (1) Debility: (2) Stroke: (3) Patent foramen ovale: (4) Subarachnoid hemorrhage: (5) Aortic valve vegetation: (6) Endocarditis: (7) PVD (peripheral vascular disease): (8) Rheumatoid arthritis: (9) Gout: (10) Hypertension: (11) Obstructive sleep apnea: PLAN: Plan 57 year old male with below past medical history hospitalized for stroke, underwent thrombectomy, complicated by PFO, aortic valve endocarditis, admitted to for 3 hours daily rehabilitation, strengthening, intravenous antibiotics, prior to discharge home with . 07/28/2022 Doppler ultrasound showed right lower extremity DVT. 07/29/2022 Dr. Donohue placed IVC filter, contraindication to anticoagulation. * Debility - PT/OT. * Pain - Tylenol 1000mg q8, Oxycodone 5-10mg q4h prn. * Bowel - Senna/colace 1 tablet bid, Dulcolax 10mg pr x 1 prn, MOM 30ml po x 1 prn. * DVT prophylaxis - Lovenox 40mg sc bid. * Shortness of breath - Albuterol 2.5mg q2h prn. * Gout - Allopurinol 400mg daily. * Hypertension - Lisinopril 20mg daily, Amlodipine 10mg daily. * Aortic valve endocarditis - Dr. Riojas, Unasyn 3gm iv q6, Daptomycin 900mg iv dinner, Doxycycline 100mg iv q12h thru 08/25/2022. * RA - Plaquenil 200mg bid, Folic acid 1mg daily. Arthritis compound topical tid. * Stroke - Plavix 75mg daily, Aspirin 81mg daily. * Hyperlipidemia - Atorvastatin 40mg qhs, Fenofibrate 48mg daily. * Muscle spasm - Baclofen 5mg tid. * Neuropathic pain - Gabapentin 200mg bidcm. * GI prophylaxis - Lactobacillus 1 tablet tid. * Skin irritation - Calmoseptine topical bid. * Tinea Corporis - Nystatin topical bid. * GERD - Pantoprazole 40mg daily. * Depression - Venlafaxine XR 150mg daily. Capacity Capacity Assessment Tool Can the patient make a choice & communicate that choice?: Yes Can the patient understand benefits, risks and alternatives?: Yes Can the patient make a logical, rational choice?: Yes Is the choice the patient makes consistent w/ their values?: Yes Is there an impending, emergent risk to the patient?: No Does the patient have an Advance Directive?: No Is there a Surrogate Available?: Yes i.e. HCPOA: Yes i.e. close relative (spouse, child, parent, sibling)?: Yes
[2022-08-03 22:00] VITALS: PULSE 95
[2022-08-04] MEDS: Arthritis Pain Compound 60 CLICK TUBE TOPICAL ×3 (05:38→22:26)
[2022-08-04] MEDS: Baclofen 10 MG Tablet 5 MG PO ×3 (05:39→22:29)
[2022-08-04] MEDS: Menthol/Lanolin/Calamine/Znox 113 GM Tube 1 APPLIC TOPICAL ×2 (05:40→22:31)
[2022-08-04] MEDS: Acetaminophen 500 MG Tablet 1000 MG PO ×3 (05:41→22:29)
[2022-08-04] MEDS: Nystatin Powder 15gm Bottle 1 APPLIC TOPICAL ×2 (05:41→22:31)
[2022-08-04 05:51] LABS: Absolute Lymphocyte Count 1.53 X10^3/uL (0.83-4.51); Absolute Neutrophil Count 5.3 X10^3/uL (2.0-7.7); Basophil# 0.05 X10^3/uL; Basophil% 0.6 % (0-1); Eosinophil# 0.24 X10^3/uL; Hematocrit 29.8 % (40-54); Hemoglobin 8.7 g/dL (13.0-16.5); Lymphocyte # 1.53 X10^3/ul (0.83-4.51); Lymphocyte % 19.4 % (19-41); Mean Corp Hgb Conc 29.2 g/dL (32-36); Mean Corpuscular Hgb 25.1 pg (27.0-32.0); Mean Corpuscular Volume 86.1 fL (80-94); Mean Platelet Vol. 10.9 fl (6.2-12.0); Monocyte# 0.68 X10^3/uL; Monocyte% 8.6 % (0-10); NRBC Flagged by Analyzer 0 % (0-5); Neutrophil # 5.34 X10^3/uL (2.7-7.7); Neutrophil % 67.9 % (47-70); Platelet Count 396 K/mm3 (150-450); RBC Distribution Width CV 16.7 % (11.6-14.6); Red Blood Count 3.46 M/mm3 (4.6-6.2); White Blood Count 7.9 K/mm3 (4.4-11.0)
[2022-08-04 06:00] VITALS: BMI 40.9
[2022-08-04 06:46] LABS: Anion Gap 6 (5-15); BUN 7 mg/dL (7-18); BUN/Creat Ratio 11.6 RATIO (10-20); Calcium,Total 9.1 mg/dL (8.5-10.1); Chloride 109 mmol/L (98-107); EST Glomerular Filtration Rate 146 mL/min (>60); Est Glom Filt Rate - Afr Amer 177 mL/min (>60); Estimated Creatinine Clearance 160.39 ml/min; Glucose 93 mg/dL (74-106); Potassium 3.8 mmol/L (3.5-5.1); Sodium Level 143 mmol/L (136-145)
[2022-08-04 07:10] VITALS: O2SAT 98
[2022-08-04 07:28] LABS: CPK Total, Creatine Kinase 49 U/L (39-308)
[2022-08-04 07:35] VITALS: BP 134/58; PULSE 78; RESP 15; TEMP 36.6; O2SAT 95
[2022-08-04] MEDS: Allopurinol 100 MG Tablet PO (08:14)
[2022-08-04] MEDS: Clopidogrel Bisulfate 75 MG Tablet PO (08:14)
[2022-08-04] MEDS: Hydroxychloroquine 200 MG Tablet PO ×2 (08:14→22:28)
[2022-08-04] MEDS: Fenofibrate 48 MG Tablet PO (08:14)
[2022-08-04] MEDS: Allopurinol 300 MG Tablet PO (08:14)
[2022-08-04] MEDS: Venlafaxine XR 75 MG Capsule 150 MG PO (08:14)
[2022-08-04] MEDS: Enoxaparin 40 MG/0.4 ML Syringe SC ×2 (08:15→22:29)
[2022-08-04] MEDS: Lisinopril 20 MG Tablet PO (08:15)
[2022-08-04] MEDS: Pantoprazole Sodium 40 MG Tablet PO (08:15)
[2022-08-04] MEDS: Folic Acid 1 MG Tablet PO (08:15)
[2022-08-04] MEDS: Aspirin E.C. 81 MG Tablet PO (08:15)
[2022-08-04] MEDS: amLODIPine 10 MG Tablet PO (08:15)
[2022-08-04] MEDS: Gabapentin 100 MG Capsule 200 MG PO ×2 (08:19→17:53)
--- NOTE | 2022-08-04 08:35 | PN_ITS ---
Subjective Subjective Patient seen, examined. He asked me if endocarditis is common, I told him no, but hopefully if he finishes all prescribed antibiotics, endocarditis will resolve. He also asked me about his PFO and how to fix it. I let him know he should follow up with his family doctor and decide on what to do to fix PFO or if necessary to fix PFO. He is c/o back pain, took Oxycodone night before, but he states his back pain is chronic. Objective Data Objective Data Vital Signs: Vital Signs Temp Pulse Resp BP Pulse Ox O2 Del Method O2 Flow Rate 97.8 F 78 15 134/58 H 95 Room Air 2 08/04/22 07:35 08/04/22 07:35 08/04/22 07:35 08/04/22 07:35 08/04/22 07:35 08/04/22 07:35 08/02/22 07:40 Oxygen Flow Rate (L/min) 2 Oxygen Delivery Method Room Air Weight: 149.4 kg Body Mass Index (BMI) 40.9 Intake & Output: Intake and Output for Last 24 Hours 08/02/22 08/03/22 08/04/22 23:59 23:59 23:59 Intake Total 2549.75 / 2549.75 1676 / 1796 700.25 / 700.25 Output Total 1325 / 1625 950 / 1275 750 / 750 Balance 1224.75 / 924.75 726 / 521 -49.75 / -49.75 Lab / Micro Data Result Diagrams: 08/04/22 05:43 08/04/22 05:43 Labs: Laboratory Results - last 24 hr 08/03/22 05:40: WBC 7.8, RBC 3.37 L, Hgb 8.5 L, Hct 28.8 L, MCV 85.5, MCH 25.2 L , MCHC 29.5 L, RDW Std Deviation 52.1 H, RDW Coeff of Ghassan 16.6 H, Plt Count 411, MPV 10.8, Immature Gran % (Auto) 0.500, Neut % (Auto) 69.0, Lymph % (Auto) 19.3, [place] % (Auto) 7.7, Eos % (Auto) 2.7, Baso % (Auto) 0.8, Absolute Neuts (auto) 5.4, Absolute Lymphs (auto) 1.51, Nucleated RBC % 0, ESR 61 H 08/03/22 05:40: Sodium 142, Potassium 3.6, Chloride 110 H, Carbon Dioxide 27.0, Anion Gap 5, BUN 7, Creatinine 0.61 L, Estim Creat Clear Calc 157.76, Est GFR (MDRD) Af Amer 175, Est GFR (MDRD) Non-Af 144, BUN/Creatinine Ratio 11.5, Glucose 97, Calcium 9.1, Total Creatine Kinase 46, C-React Prot Ext Range 32.20 H 08/04/22 05:43: WBC 7.9, RBC 3.46 L, Hgb 8.7 L, Hct 29.8 L, MCV 86.1, MCH 25.1 L , MCHC 29.2 L, RDW Std Deviation 53.0 H, RDW Coeff of Ghassan 16.7 H, Plt Count 396, MPV 10.9, Immature Gran % (Auto) 0.500, Neut % (Auto) 67.9, Lymph % (Auto) 19.4, [place] % (Auto) 8.6, Eos % (Auto) 3.0, Baso % (Auto) 0.6, Absolute Neuts (auto) 5.3, Absolute Lymphs (auto) 1.53, Nucleated RBC % 0 08/04/22 05:43: Sodium 143, Potassium 3.8, Chloride 109 H, Carbon Dioxide 28.0, Anion Gap 6, BUN 7, Creatinine 0.60 L, Estim Creat Clear Calc 160.39, Est GFR (MDRD) Af Amer 177, Est GFR (MDRD) Non-Af 146, BUN/Creatinine Ratio 11.6, Glucose 93, Calcium 9.1 08/04/22 05:43: Total Creatine Kinase 49 Micro: Microbiology 07/24/22 18:35 Stool Stool Occult Blood (MARIA T) - Final Occult Blood Positive Physical Exam Const alert General Appearance: cooperative HEENT normocephalic Eyes PERRL and EOMs intact bilaterally Neck supple, no JVD and no carotid bruits Resp normal respiratory effort, normal air movement and clear to auscultation bi laterally Cardio regular rate and regular rhythm GI normal to inspection, nondistended, normoactive bowel sounds, non-tender and non-distended Extremity normal capillary refill Extremity Narrative: Left upper extremity PICC line. General Extremity: Negative for edema Skin no rashes or lesions noted General Skin Exam: no breakdown Psych affect normal Appearance: appropriate Assessment & Plan Assessment/Plan (1) Debility: (2) Stroke: (3) Patent foramen ovale: (4) Subarachnoid hemorrhage: (5) Aortic valve vegetation: (6) Endocarditis: (7) PVD (peripheral vascular disease): (8) Rheumatoid arthritis: (9) Gout: (10) Hypertension: (11) Obstructive sleep apnea: PLAN: Plan 57 year old male with below past medical history hospitalized for stroke, underw ent thrombectomy, complicated by PFO, aortic valve endocarditis, admitted to for 3 hours daily rehabilitation, strengthening, intravenous antibiotics, prior to discharge home with . 07/28/2022 Doppler ultrasound showed right lower extremity DVT. 07/29/2022 Dr. Donohue placed IVC filter, contraindication to anticoagulation. * Debility - PT/OT. * Pain - Tylenol 1000mg q8, Oxycodone 5-10mg q4h prn. * Bowel - Senna/colace 1 tablet bid, Dulcolax 10mg pr x 1 prn, MOM 30ml po x 1 prn. * DVT prophylaxis - Lovenox 40mg sc bid. * Shortness of breath - Albuterol 2.5mg q2h prn. * Gout - Allopurinol 400mg daily. * Hypertension - Lisinopril 20mg daily, Amlodipine 10mg daily. * Aortic valve endocarditis - Dr. Riojas, Unasyn 3gm iv q6, Daptomycin 900mg iv dinner, Doxycycline 100mg iv q12h thru 08/25/2022. * RA - Plaquenil 200mg bid, Folic acid 1mg daily. Arthritis compound topical tid. * Stroke - Plavix 75mg daily, Aspirin 81mg daily. * Hyperlipidemia - Atorvastatin 40mg qhs, Fenofibrate 48mg daily. * Muscle spasm - Baclofen 5mg tid. * Neuropathic pain - Gabapentin 200mg bidcm. * GI prophylaxis - Lactobacillus 1 tablet tid. * Skin irritation - Calmoseptine topical bid. * Tinea Corporis - Nystatin topical bid. * GERD - Pantoprazole 40mg daily. * Depression - Venlafaxine XR 150mg daily. Capacity Capacity Assessment Tool Can the patient make a choice & communicate that choice?: Yes Can the patient understand benefits, risks and alternatives?: Yes Can the patient make a logical, rational choice?: Yes Is the choice the patient makes consistent w/ their values?: Yes Is there an impending, emergent risk to the patient?: No Does the patient have an Advance Directive?: No Is there a Surrogate Available?: Yes i.e. HCPOA: Yes i.e. close relative (spouse, child, parent, sibling)?: Yes
[2022-08-04] MEDS: oxyCODONE 5 MG Tablet PO ×2 (08:53→19:46)
--- NOTE | 2022-08-04 09:58 | NURSING ---
weekly lab results faxed to Dr Morgan
--- NOTE | 2022-08-04 10:43 | PCM.PN.ID ---
Physical Exam Narrative Feeling well, no fever, no n/v/d Const alert and no apparent distress General Appearance: cooperative Resp normal air movement and clear to auscultation bilaterally Cardio regular rate and regular rhythm GI soft to palpation, non-tender and non-distended Skin no rashes or lesions noted ID ID: Route of nutrition/ use of supplements: [] Nutritional Intake: [] IV Site: [] [place] Catheter: [] Assessment & Plan Assessment/Plan (1) Aortic valve vegetation: (2) Stroke/cerebrovascular accident: (3) Endocarditis: PLAN: Reviewed records from [facility]. ID was Dr. Zane Morgan. Pt with poor dentition, will check xray of teeth. Bcxs neg. Neg for bartonella or coxiella. Chlamydia pneumoniae IgG strongly (+) at 1:512, but IgM neg. Given how high the titer is and otherwise negative workup, will cont dapto/unasyn with stop date 08/25/22, and 07/29 added iv doxycycline. Will change doxy to po today. Will follow
[2022-08-04] MEDS: Doxycycline 100 MG CAPSULE PO ×2 (12:12→22:26)
[2022-08-04 13:13] VITALS: BMI 40.9
--- NOTE | 2022-08-04 14:28 | CASEMGMT ---
Social Work Completed advanced directives for pt. Pt named , Shani Laurent, as HCPOA. Original and copy provided to pt. Copies placed on chart. Samaria Ellington, [employer]
[2022-08-04 19:22] VITALS: BP 135/60; PULSE 80; RESP 16; TEMP 37.2; O2SAT 98
[2022-08-04 19:57] VITALS: BMI 40.9
[2022-08-04 22:00] VITALS: PULSE 84; RESP 16
[2022-08-04] MEDS: Senna/Docusate Sodium 1 Tablet PO (22:28)
[2022-08-04] MEDS: Atorvastatin Calcium 40 MG Tablet PO (22:28)
[2022-08-05] MEDS: Arthritis Pain Compound 60 CLICK TUBE TOPICAL ×3 (05:23→20:26)
[2022-08-05] MEDS: Menthol/Lanolin/Calamine/Znox 113 GM Tube 1 APPLIC TOPICAL ×2 (05:24→20:26)
[2022-08-05] MEDS: Nystatin Powder 15gm Bottle 1 APPLIC TOPICAL ×2 (05:24→20:26)
[2022-08-05] MEDS: Baclofen 10 MG Tablet 5 MG PO ×3 (05:25→21:04)
[2022-08-05] MEDS: Acetaminophen 500 MG Tablet 1000 MG PO ×3 (05:26→21:03)
[2022-08-05 06:00] VITALS: BMI 41.1
[2022-08-05 06:05] LABS: Absolute Lymphocyte Count 1.58 X10^3/uL (0.83-4.51); Absolute Neutrophil Count 4.9 X10^3/uL (2.0-7.7); Basophil# 0.07 X10^3/uL; Basophil% 0.9 % (0-1); Eosinophil# 0.27 X10^3/uL; Eosinophils% 3.5 % (0-5); Hematocrit 29.9 % (40-54); Hemoglobin 8.8 g/dL (13.0-16.5); Lymphocyte # 1.58 X10^3/ul (0.83-4.51); Lymphocyte % 20.7 % (19-41); Mean Corp Hgb Conc 29.4 g/dL (32-36); Mean Corpuscular Hgb 24.9 pg (27.0-32.0); Mean Corpuscular Volume 84.7 fL (80-94); Mean Platelet Vol. 10.9 fl (6.2-12.0); Monocyte# 0.74 X10^3/uL; Monocyte% 9.7 % (0-10); NRBC Flagged by Analyzer 0 % (0-5); Neutrophil # 4.93 X10^3/uL (2.7-7.7); Neutrophil % 64.7 % (47-70); Platelet Count 370 K/mm3 (150-450); RBC Distribution Width CV 16.6 % (11.6-14.6); RBC Distribution Width SD 51.4 fl (35.1-43.9); Red Blood Count 3.53 M/mm3 (4.6-6.2); White Blood Count 7.6 K/mm3 (4.4-11.0)
[2022-08-05 06:41] LABS: Anion Gap 5 (5-15); BUN 9 mg/dL (7-18); BUN/Creat Ratio 14.6 RATIO (10-20); Calcium,Total 9.3 mg/dL (8.5-10.1); Chloride 108 mmol/L (98-107); Creatinine, Serum 0.62 mg/dL (0.70-1.30); EST Glomerular Filtration Rate 142 mL/min (>60); Est Glom Filt Rate - Afr Amer 172 mL/min (>60); Estimated Creatinine Clearance 155.22 ml/min; Glucose 88 mg/dL (74-106); Potassium 3.8 mmol/L (3.5-5.1); Sodium Level 140 mmol/L (136-145)
[2022-08-05] MEDS: Allopurinol 100 MG Tablet PO (08:16)
[2022-08-05] MEDS: Pantoprazole Sodium 40 MG Tablet PO (08:16)
[2022-08-05] MEDS: Aspirin E.C. 81 MG Tablet PO (08:16)
[2022-08-05] MEDS: Clopidogrel Bisulfate 75 MG Tablet PO (08:16)
[2022-08-05] MEDS: Gabapentin 100 MG Capsule 200 MG PO ×2 (08:16→17:04)
[2022-08-05] MEDS: amLODIPine 10 MG Tablet PO (08:16)
[2022-08-05] MEDS: Doxycycline 100 MG CAPSULE PO ×2 (08:17→21:04)
[2022-08-05] MEDS: Fenofibrate 48 MG Tablet PO (08:17)
[2022-08-05] MEDS: Enoxaparin 40 MG/0.4 ML Syringe SC ×2 (08:17→21:03)
[2022-08-05] MEDS: Folic Acid 1 MG Tablet PO (08:17)
[2022-08-05] MEDS: Allopurinol 300 MG Tablet PO (08:17)
[2022-08-05] MEDS: Venlafaxine XR 75 MG Capsule 150 MG PO (08:17)
[2022-08-05] MEDS: Hydroxychloroquine 200 MG Tablet PO ×2 (08:17→21:03)
[2022-08-05] MEDS: Lisinopril 20 MG Tablet PO (08:17)
[2022-08-05] MEDS: oxyCODONE 5 MG Tablet PO ×2 (08:20→21:03)
[2022-08-05 09:05] VITALS: BP 125/64; PULSE 78; RESP 18; TEMP 37.1; O2SAT 95
--- NOTE | 2022-08-05 11:28 | PN_ITS ---
Subjective Subjective Patient seen, examined, he had a good night, no issues. His back is still sore, but pain medication helpful. Objective Data Objective Data Vital Signs: Vital Signs Temp Pulse Resp BP Pulse Ox O2 Del Method O2 Flow Rate 98.7 F 78 18 125/64 H 95 Room Air 2 08/05/22 09:05 08/05/22 09:05 08/05/22 09:05 08/05/22 09:05 08/05/22 09:05 08/05/22 09:05 08/02/22 07:40 Oxygen Flow Rate (L/min) 2 Oxygen Delivery Method Room Air Weight: 150.1 kg Body Mass Index (BMI) 41.1 Intake & Output: Intake and Output for Last 24 Hours 08/03/22 08/04/22 08/05/22 23:59 23:59 23:59 Intake Total 1676 / 1796 2003.75 / 2203.75 764 / 764 Output Total 950 / 1275 1950 / 2325 775 / 775 Balance 726 / 521 53.75 / -121.25 -11 / -11 Lab / Micro Data Result Diagrams: 08/05/22 05:50 08/05/22 05:50 Labs: Laboratory Results - last 24 hr 08/05/22 05:50: WBC 7.6, RBC 3.53 L, Hgb 8.8 L, Hct 29.9 L, MCV 84.7, MCH 24.9 L , MCHC 29.4 L, RDW Std Deviation 51.4 H, RDW Coeff of Ghassan 16.6 H, Plt Count 370, MPV 10.9, Immature Gran % (Auto) 0.500, Neut % (Auto) 64.7, Lymph % (Auto) 20.7, [place] % (Auto) 9.7, Eos % (Auto) 3.5, Baso % (Auto) 0.9, Absolute Neuts (auto) 4.9, Absolute Lymphs (auto) 1.58, Nucleated RBC % 0 08/05/22 05:50: Sodium 140, Potassium 3.8, Chloride 108 H, Carbon Dioxide 27.0, Anion Gap 5, BUN 9, Creatinine 0.62 L, Estim Creat Clear Calc 155.22, Est GFR (MDRD) Af Amer 172, Est GFR (MDRD) Non-Af 142, BUN/Creatinine Ratio 14.6, Glucose 88, Calcium 9.3 Micro: Microbiology 07/24/22 18:35 Stool Stool Occult Blood (MARIA T) - Final Occult Blood Positive Physical Exam Const alert General Appearance: cooperative HEENT normocephalic Eyes PERRL and EOMs intact bilaterally Neck supple, no JVD and no carotid bruits Resp normal respiratory effort, normal air movement and clear to auscultation bilaterally Cardio regular rate and regular rhythm GI normal to inspection, nondistended, normoactive bowel sounds, non-tender and non-distended Extremity normal capillary refill Extremity Narrative: Left upper extremity PICC line. General Extremity: Negative for edema Skin no rashes or lesions noted General Skin Exam: no breakdown Psych affect normal Appearance: appropriate Assessment & Plan Assessment/Plan (1) Debility: (2) Stroke: (3) Patent foramen ovale: (4) Subarachnoid hemorrhage: (5) Aortic valve vegetation: (6) Endocarditis: (7) PVD (peripheral vascular disease): (8) Rheumatoid arthritis: (9) Gout: (10) Hypertension: (11) Obstructive sleep apnea: PLAN: Plan 57 year old male with below past medical history hospitalized for stroke, underwent thrombectomy, complicated by PFO, aortic valve endocarditis, admitted to for 3 hours daily rehabilitation, strengthening, intravenous antibiotics, prior to discharge home with . 07/28/2022 Doppler ultrasound showed right lower extremity DVT. 07/29/2022 Dr. Donohue placed IVC filter, contraindication to anticoagulation. * Debility - PT/OT. * Pain - Tylenol 1000mg q8, Oxycodone 5-10mg q4h prn. * Bowel - Senna/colace 1 tablet bid, Dulcolax 10mg pr x 1 prn, MOM 30ml po x 1 prn. * DVT prophylaxis - Lovenox 40mg sc bid. * Shortness of breath - Albuterol 2.5mg q2h prn. * Gout - Allopurinol 400mg daily. * Hypertension - Lisinopril 20mg daily, Amlodipine 10mg daily. * Aortic valve endocarditis - Dr. Riojas, Unasyn 3gm iv q6, Daptomycin 900mg iv dinner, Doxycycline 100mg iv q12h thru 08/25/2022. * RA - Plaquenil 200mg bid, Folic acid 1mg daily. Arthritis compound topical tid. * Stroke - Plavix 75mg daily, Aspirin 81mg daily. * Hyperlipidemia - Atorvastatin 40mg qhs, Fenofibrate 48mg daily. * Muscle spasm - Baclofen 5mg tid. * Neuropathic pain - Gabapentin 200mg bidcm. * GI prophylaxis - Lactobacillus 1 tablet tid. * Skin irritation - Calmoseptine topical bid. * Tinea Corporis - Nystatin topical bid. * GERD - Pantoprazole 40mg daily. * Depression - Venlafaxine XR 150mg daily. Capacity Capacity Assessment Tool Can the patient make a choice & communicate that choice?: Yes Can the patient understand benefits, risks and alternatives?: Yes Can the patient make a logical, rational choice?: Yes Is the choice the patient makes consistent w/ their values?: Yes Is there an impending, emergent risk to the patient?: No Does the patient have an Advance Directive?: No Is there a Surrogate Available?: Yes i.e. HCPOA: Yes
[2022-08-05 13:46] VITALS: BMI 41.1
[2022-08-05 19:23] VITALS: BP 136/59; PULSE 81; RESP 16; TEMP 37.4; O2SAT 97
[2022-08-05 20:08] VITALS: TEMP 36.6
[2022-08-05 20:40] VITALS: BMI 41.1
[2022-08-05] MEDS: Senna/Docusate Sodium 1 Tablet PO (21:03)
[2022-08-05] MEDS: Atorvastatin Calcium 40 MG Tablet PO (21:04)
[2022-08-05] MEDS: 0.9% Saline Lock 10 ML Syringe IV (23:11)
[2022-08-06 05:13] VITALS: BMI 41.1
[2022-08-06] MEDS: Arthritis Pain Compound 60 CLICK TUBE TOPICAL ×3 (05:15→21:33)
[2022-08-06] MEDS: Nystatin Powder 15gm Bottle 1 APPLIC TOPICAL ×2 (05:15→21:36)
[2022-08-06] MEDS: Menthol/Lanolin/Calamine/Znox 113 GM Tube 1 APPLIC TOPICAL ×2 (05:15→21:35)
[2022-08-06] MEDS: Acetaminophen 500 MG Tablet 1000 MG PO ×3 (05:25→21:34)
[2022-08-06] MEDS: Baclofen 10 MG Tablet 5 MG PO ×3 (05:25→21:34)
[2022-08-06 06:04] LABS: Absolute Lymphocyte Count 1.43 X10^3/uL (0.83-4.51); Absolute Neutrophil Count 4.6 X10^3/uL (2.0-7.7); Basophil# 0.05 X10^3/uL; Basophil% 0.7 % (0-1); Eosinophil# 0.25 X10^3/uL; Eosinophils% 3.6 % (0-5); Hematocrit 28.8 % (40-54); Hemoglobin 8.6 g/dL (13.0-16.5); Lymphocyte # 1.43 X10^3/ul (0.83-4.51); Lymphocyte % 20.3 % (19-41); Mean Corp Hgb Conc 29.9 g/dL (32-36); Mean Corpuscular Volume 83.7 fL (80-94); Mean Platelet Vol. 10.7 fl (6.2-12.0); Monocyte% 9.9 % (0-10); NRBC Flagged by Analyzer 0 % (0-5); Neutrophil # 4.57 X10^3/uL (2.7-7.7); Neutrophil % 64.9 % (47-70); Platelet Count 340 K/mm3 (150-450); RBC Distribution Width CV 16.4 % (11.6-14.6); RBC Distribution Width SD 50.4 fl (35.1-43.9); Red Blood Count 3.44 M/mm3 (4.6-6.2)
[2022-08-06 07:00] LABS: Anion Gap 7 (5-15); BUN 9 mg/dL (7-18); BUN/Creat Ratio 14.6 RATIO (10-20); Calcium,Total 9.2 mg/dL (8.5-10.1); Chloride 109 mmol/L (98-107); Creatinine, Serum 0.62 mg/dL (0.70-1.30); EST Glomerular Filtration Rate 143 mL/min (>60); Est Glom Filt Rate - Afr Amer 173 mL/min (>60); Estimated Creatinine Clearance 155.22 ml/min; Glucose 91 mg/dL (74-106); Potassium 3.7 mmol/L (3.5-5.1); Sodium Level 141 mmol/L (136-145)
[2022-08-06 08:21] VITALS: BP 135/63; PULSE 77; RESP 18; TEMP 36.9; O2SAT 94
[2022-08-06] MEDS: Aspirin E.C. 81 MG Tablet PO (08:24)
[2022-08-06] MEDS: Folic Acid 1 MG Tablet PO (08:24)
[2022-08-06] MEDS: Doxycycline 100 MG CAPSULE PO ×2 (08:24→21:34)
[2022-08-06] MEDS: Polyethylene Glycol 3350 17 GM PACKET PO (08:25)
[2022-08-06] MEDS: Fenofibrate 48 MG Tablet PO (08:25)
[2022-08-06] MEDS: Venlafaxine XR 75 MG Capsule 150 MG PO (08:25)
[2022-08-06] MEDS: Enoxaparin 40 MG/0.4 ML Syringe SC ×2 (08:25→21:34)
[2022-08-06] MEDS: Clopidogrel Bisulfate 75 MG Tablet PO (08:26)
[2022-08-06] MEDS: Hydroxychloroquine 200 MG Tablet PO ×2 (08:26→21:33)
[2022-08-06] MEDS: Allopurinol 100 MG Tablet PO (08:27)
[2022-08-06] MEDS: Pantoprazole Sodium 40 MG Tablet PO (08:27)
[2022-08-06] MEDS: amLODIPine 10 MG Tablet PO (08:27)
[2022-08-06] MEDS: Lisinopril 20 MG Tablet PO (08:27)
[2022-08-06] MEDS: Allopurinol 300 MG Tablet PO (08:28)
[2022-08-06 08:30] VITALS: BMI 41.1
[2022-08-06] MEDS: Senna/Docusate Sodium 1 Tablet PO (08:31)
[2022-08-06] MEDS: Gabapentin 100 MG Capsule 200 MG PO ×2 (08:31→17:25)
[2022-08-06] MEDS: oxyCODONE 5 MG Tablet PO ×2 (08:39→21:33)
[2022-08-06 21:30] VITALS: BP 157/66; PULSE 79; RESP 16; TEMP 37.1; O2SAT 96; BMI 41.1
[2022-08-06] MEDS: Atorvastatin Calcium 40 MG Tablet PO (21:34)
[2022-08-07] MEDS: 0.9% Saline Lock 10 ML Syringe IV (01:11)
[2022-08-07 05:02] VITALS: BMI 40.7
[2022-08-07] MEDS: Arthritis Pain Compound 60 CLICK TUBE TOPICAL ×3 (05:07→21:06)
[2022-08-07] MEDS: Acetaminophen 500 MG Tablet 1000 MG PO ×3 (05:07→21:10)
[2022-08-07] MEDS: Menthol/Lanolin/Calamine/Znox 113 GM Tube 1 APPLIC TOPICAL ×2 (05:07→21:06)
[2022-08-07] MEDS: Baclofen 10 MG Tablet 5 MG PO ×3 (05:08→21:08)
[2022-08-07] MEDS: Nystatin Powder 15gm Bottle 1 APPLIC TOPICAL ×2 (05:08→21:06)
[2022-08-07 07:05] VITALS: BP 138/57; PULSE 82; RESP 18; TEMP 36.9; O2SAT 92
[2022-08-07] MEDS: Folic Acid 1 MG Tablet PO (07:35)
[2022-08-07] MEDS: Gabapentin 100 MG Capsule 200 MG PO ×2 (07:35→17:11)
[2022-08-07] MEDS: Fenofibrate 48 MG Tablet PO (07:35)
[2022-08-07] MEDS: Aspirin E.C. 81 MG Tablet PO (07:35)
[2022-08-07] MEDS: oxyCODONE 5 MG Tablet PO ×4 (07:35→22:33)
[2022-08-07] MEDS: Doxycycline 100 MG CAPSULE PO ×2 (10:03→21:08)
[2022-08-07] MEDS: Enoxaparin 40 MG/0.4 ML Syringe SC ×2 (10:03→21:12)
[2022-08-07] MEDS: Venlafaxine XR 75 MG Capsule 150 MG PO (10:03)
[2022-08-07] MEDS: Clopidogrel Bisulfate 75 MG Tablet PO (10:04)
[2022-08-07] MEDS: amLODIPine 10 MG Tablet PO (10:04)
[2022-08-07] MEDS: Pantoprazole Sodium 40 MG Tablet PO (10:04)
[2022-08-07] MEDS: Hydroxychloroquine 200 MG Tablet PO ×2 (10:04→21:08)
[2022-08-07] MEDS: Allopurinol 100 MG Tablet PO (10:05)
[2022-08-07] MEDS: Allopurinol 300 MG Tablet PO (10:05)
[2022-08-07] MEDS: Lisinopril 20 MG Tablet PO (10:05)
[2022-08-07 16:46] VITALS: BMI 40.7
[2022-08-07 20:20] VITALS: BMI 40.7
[2022-08-07 20:29] VITALS: BP 125/83; PULSE 80; RESP 16; TEMP 36.7; O2SAT 96
[2022-08-07] MEDS: Atorvastatin Calcium 40 MG Tablet PO (21:09)
[2022-08-08 05:15] VITALS: BMI 40.8
[2022-08-08] MEDS: Menthol/Lanolin/Calamine/Znox 113 GM Tube 1 APPLIC TOPICAL ×2 (05:25→21:20)
[2022-08-08] MEDS: Arthritis Pain Compound 60 CLICK TUBE TOPICAL ×2 (05:25→21:19)
[2022-08-08] MEDS: Nystatin Powder 15gm Bottle 1 APPLIC TOPICAL ×2 (05:25→21:22)
[2022-08-08] MEDS: Acetaminophen 500 MG Tablet 1000 MG PO ×3 (05:29→21:45)
[2022-08-08] MEDS: Baclofen 10 MG Tablet 5 MG PO ×3 (05:29→21:18)
[2022-08-08 07:53] VITALS: BP 122/53; PULSE 80; RESP 16; TEMP 36.9; O2SAT 94
[2022-08-08] MEDS: Venlafaxine XR 75 MG Capsule 150 MG PO (08:43)
[2022-08-08] MEDS: Folic Acid 1 MG Tablet PO (08:43)
[2022-08-08] MEDS: Hydroxychloroquine 200 MG Tablet PO ×2 (08:43→21:17)
[2022-08-08] MEDS: Allopurinol 300 MG Tablet PO (08:43)
[2022-08-08] MEDS: Allopurinol 100 MG Tablet PO (08:43)
[2022-08-08] MEDS: Clopidogrel Bisulfate 75 MG Tablet PO (08:43)
[2022-08-08] MEDS: Pantoprazole Sodium 40 MG Tablet PO (08:43)
[2022-08-08] MEDS: amLODIPine 10 MG Tablet PO (08:43)
[2022-08-08] MEDS: Lisinopril 20 MG Tablet PO (08:44)
[2022-08-08] MEDS: Aspirin E.C. 81 MG Tablet PO (08:44)
[2022-08-08] MEDS: oxyCODONE 5 MG Tablet PO ×2 (08:50→20:59)
[2022-08-08] MEDS: Fenofibrate 48 MG Tablet PO (08:51)
[2022-08-08] MEDS: Gabapentin 100 MG Capsule 200 MG PO ×2 (08:51→16:44)
[2022-08-08] MEDS: Enoxaparin 40 MG/0.4 ML Syringe SC ×2 (08:53→21:17)
[2022-08-08] MEDS: Doxycycline 100 MG CAPSULE PO ×2 (08:54→21:19)
[2022-08-08 12:46] VITALS: BMI 40.8
[2022-08-08] MEDS: 0.9% Saline Lock 10 ML Syringe IV ×2 (13:15→21:12)
[2022-08-08 19:20] VITALS: BP 95/53; PULSE 82; RESP 16; TEMP 36.7; O2SAT 94
[2022-08-08] MEDS: Atorvastatin Calcium 40 MG Tablet PO (21:18)
[2022-08-08 21:30] VITALS: BMI 40.8
[2022-08-08 22:00] VITALS: PULSE 86; RESP 18
[2022-08-09] MEDS: Arthritis Pain Compound 60 CLICK TUBE TOPICAL (05:25)
[2022-08-09] MEDS: Nystatin Powder 15gm Bottle 1 APPLIC TOPICAL ×2 (05:28→20:46)
[2022-08-09] MEDS: Baclofen 10 MG Tablet 5 MG PO ×3 (05:28→20:48)
[2022-08-09] MEDS: Acetaminophen 500 MG Tablet 1000 MG PO ×3 (05:28→21:01)
[2022-08-09] MEDS: Menthol/Lanolin/Calamine/Znox 113 GM Tube 1 APPLIC TOPICAL ×2 (05:29→20:45)
[2022-08-09 06:00] VITALS: BMI 40.4
[2022-08-09] MEDS: Allopurinol 300 MG Tablet PO (08:00)
[2022-08-09] MEDS: Folic Acid 1 MG Tablet PO (08:01)
[2022-08-09] MEDS: Doxycycline 100 MG CAPSULE PO ×2 (08:01→20:49)
[2022-08-09] MEDS: Lisinopril 20 MG Tablet PO (08:01)
[2022-08-09] MEDS: Hydroxychloroquine 200 MG Tablet PO ×2 (08:01→20:49)
[2022-08-09] MEDS: Senna/Docusate Sodium 1 Tablet PO (08:01)
[2022-08-09] MEDS: Venlafaxine XR 75 MG Capsule 150 MG PO (08:01)
[2022-08-09] MEDS: Aspirin E.C. 81 MG Tablet PO (08:02)
[2022-08-09] MEDS: Allopurinol 100 MG Tablet PO (08:02)
[2022-08-09] MEDS: Pantoprazole Sodium 40 MG Tablet PO (08:03)
[2022-08-09] MEDS: Clopidogrel Bisulfate 75 MG Tablet PO (08:04)
[2022-08-09] MEDS: Fenofibrate 48 MG Tablet PO (08:04)
[2022-08-09] MEDS: amLODIPine 10 MG Tablet PO (08:05)
[2022-08-09] MEDS: Enoxaparin 40 MG/0.4 ML Syringe SC ×2 (08:07→20:47)
[2022-08-09] MEDS: oxyCODONE 5 MG Tablet PO ×2 (08:12→21:03)
[2022-08-09] MEDS: Gabapentin 100 MG Capsule 200 MG PO ×2 (08:12→17:38)
[2022-08-09] MEDS: 0.9% Saline Lock 10 ML Syringe IV ×2 (08:13→20:47)
[2022-08-09 08:30] VITALS: BP 127/48; PULSE 85; RESP 16; TEMP 36.9; O2SAT 95
[2022-08-09 13:48] VITALS: BMI 40.4
[2022-08-09 18:59] VITALS: BP 135/61; PULSE 65; RESP 16; TEMP 36.9; O2SAT 96
[2022-08-09 19:53] VITALS: BMI 40.4
[2022-08-09 19:59] VITALS: PULSE 73; RESP 16; O2SAT 96
[2022-08-09] MEDS: Atorvastatin Calcium 40 MG Tablet PO (20:50)
[2022-08-09 21:07] VITALS: BMI 40.4
[2022-08-10] MEDS: oxyCODONE 5 MG Tablet PO ×2 (04:34→21:54)
[2022-08-10] MEDS: Acetaminophen 500 MG Tablet 1000 MG PO ×3 (05:32→21:50)
[2022-08-10] MEDS: Baclofen 10 MG Tablet 5 MG PO ×3 (05:32→21:49)
[2022-08-10] MEDS: Nystatin Powder 15gm Bottle 1 APPLIC TOPICAL ×2 (05:35→21:50)
[2022-08-10] MEDS: Menthol/Lanolin/Calamine/Znox 113 GM Tube 1 APPLIC TOPICAL ×2 (05:36→21:49)
[2022-08-10 06:00] VITALS: BMI 41.0
[2022-08-10 07:39] VITALS: BP 131/65; PULSE 82; RESP 16; TEMP 36.6; O2SAT 94
[2022-08-10] MEDS: Enoxaparin 40 MG/0.4 ML Syringe SC ×2 (08:28→21:49)
[2022-08-10] MEDS: Aspirin E.C. 81 MG Tablet PO (08:28)
[2022-08-10] MEDS: Clopidogrel Bisulfate 75 MG Tablet PO (08:28)
[2022-08-10] MEDS: Allopurinol 100 MG Tablet PO (08:28)
[2022-08-10] MEDS: Venlafaxine XR 75 MG Capsule 150 MG PO (08:28)
[2022-08-10] MEDS: Fenofibrate 48 MG Tablet PO (08:28)
[2022-08-10] MEDS: Hydroxychloroquine 200 MG Tablet PO ×2 (08:28→21:49)
[2022-08-10] MEDS: Folic Acid 1 MG Tablet PO (08:28)
[2022-08-10] MEDS: Pantoprazole Sodium 40 MG Tablet PO (08:29)
[2022-08-10] MEDS: Lisinopril 20 MG Tablet PO (08:29)
[2022-08-10] MEDS: Allopurinol 300 MG Tablet PO (08:30)
[2022-08-10] MEDS: Doxycycline 100 MG CAPSULE PO ×2 (08:30→21:49)
[2022-08-10] MEDS: amLODIPine 10 MG Tablet PO (08:30)
[2022-08-10] MEDS: Gabapentin 100 MG Capsule 200 MG PO ×2 (08:39→17:28)
--- NOTE | 2022-08-10 09:45 | PCM.PROGNOTE ---
Subjective Subjective L was seen on team rounds today. His was present in the room for rounds. Afebrile VSS-BP is controlled. Maintaining appropriate oxygen saturation on RA Oral intake is good Weight is stable Discussed with nursing - no problems that need addressed Reviewed the PT/OT/ST notes - making excellent progress in therapy. Legs are getting stronger. Still having difficulty with stairs.......knee wants to buckle. Medication list reviewed. Current medications for back pain include Effexor XR 150 mg daily, baclofen 5 mg 3 times daily, gabapentin 200 mg twice daily, Tylenol 1 g p.o. every 8 hours, arthritis pain cream and as needed oxycodone. Has been taking the oxycodone 10 mg twice daily, once in the a.m. prior to therapy and once at bedtime. All recent labs were reviewed and Dr. Kellogg's PN's. Al tells me he had a hard time sleeping last night. Usually he has been sleeping well. He had increased back pain last night. Denies radiation of the pain into his legs......it is localized to the low back. Lidocaine patches do not help. Denies nausea/vomiting/abdominal pain/diarrhea, painful swallowing, painful urination, chest pain, shortness of breath, palpitations and lightheadedness. Objective Data Objective Data Vital Signs: Vital Signs Temp Pulse Resp BP Pulse Ox O2 Del Method O2 Flow Rate 97.9 F 82 16 131/65 H 94 Room Air 2 08/10/22 07:39 08/10/22 07:39 08/10/22 07:39 08/10/22 07:39 08/10/22 07:39 08/10/22 07:39 08/02/22 07:40 Oxygen Flow Rate (L/min) 2 Oxygen Delivery Method Room Air Weight: 330 lb 4.039 oz Body Mass Index (BMI) 41.0 Intake & Output: Intake and Output for Last 24 Hours 08/08/22 08/09/22 08/10/22 23:59 23:59 23:59 Intake Total 2793.75 / 2793.75 2514 / 2514 584 / 584 Output Total 1625 / 1625 1625 / 1625 500 / 500 Balance 1168.75 / 1168.75 889 / 889 84 / 84 Lab / Micro Data Result Diagrams: 08/06/22 05:54 08/06/22 05:54 Micro: Microbiology 07/24/22 18:35 Stool Stool Occult Blood (MARIA T) - Final Occult Blood Positive Physical Exam Const alert, oriented x3 and no apparent distress HEENT moist oral mucous membranes HEENT Narrative: No evidence of thrush Resp clear to auscultation bilaterally Auscultation: diminished lung sounds Cardio regular rate and regular rhythm Cardio Narrative: He has a 2/6 systolic MM at the apex that I did not hear at admission. No gallop and no rub. No ectopy. GI normal to inspection, nondistended, normoactive bowel sounds, soft to palpation and non-tender Extremity Extremity Narrative: No pain in the R calf today. No edema. No [place] lesions, [place]'s nodes, petechiae or splinter hemorrhages. Skin General Skin Exam: no breakdown Rashes: no rashes Psych cooperative and affect normal Appearance: appropriate Assessment & Plan Assessment/Plan (1) Physical debility: (2) Stroke/cerebrovascular accident: (3) PFO (patent foramen ovale): (4) SAH (subarachnoid hemorrhage): (5) Aortic valve vegetation: (6) Endocarditis: (7) Severe aortic valve regurgitation: (8) DVT of lower limb, acute: (9) Presence of arterial stent: (10) Normocytic hypochromic anemia: (11) Rheumatoid arthritis: (12) Hyperuricemia: (13) Gout: (14) Hypertension: (15) Abnormal LFTs: (16) CATHY (obstructive sleep apnea): (17) Chronic back pain: (18) 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: (19) Heme positive stool: PLAN: On a PPI. PLAN: Plan 1. Continue therapy 2. CBC, CMP, ESR, CRP, iron studies in a.m. 3. Will need a repeat ECHO post DC and follow up with cardiology. 4. Increase the Baclofen at HS to 10 mg. 5. Add Gabapentin 300 mg at HS. 6. His back surgery is scheduled for 08/28/22 but, he will need to reschedule. Advised having PFO closed first and resolution of the DVT in the RLE. Would need to be off anticoagulation for the lumbar surgery. Ideally should lose weight and have good leg strength at the time the surgery is planned for. Charges/Coding Visit Charges Inpatient E&M: 68931 Subs Hosp L2
--- NOTE | 2022-08-10 13:10 | CASEMGMT ---
Social Work IDT met with patient and for Team meeting. Discussed patient's progress in PT/OT/SN. Educated to [facility] Commercial insurance with [employer] 08/13 and continued stay is not guaranteed with each review. Pt remains on IV ATBs multiple times a day. Pt continues to be comfortable remaining in RU for duration of IV ATB, if insurance approves. SW to continue to follow for DC planning. Will ReTeam weekly. Samaria Ellington, [employer] C[employer] ASSOCIATE [employer]
[2022-08-10] MEDS: Arthritis Pain Compound 60 CLICK TUBE TOPICAL ×2 (14:28→21:48)
[2022-08-10 15:03] VITALS: BMI 41.0
[2022-08-10 19:47] VITALS: BMI 41.0
[2022-08-10 19:49] VITALS: BP 128/62; PULSE 70; RESP 18; TEMP 36.6; O2SAT 98
[2022-08-10] MEDS: Atorvastatin Calcium 40 MG Tablet PO (21:49)
[2022-08-11] MEDS: Baclofen 10 MG Tablet 5 MG PO ×3 (04:56→20:00)
[2022-08-11] MEDS: Acetaminophen 500 MG Tablet 1000 MG PO (04:56)
[2022-08-11] MEDS: Arthritis Pain Compound 60 CLICK TUBE TOPICAL ×3 (04:56→20:01)
[2022-08-11] MEDS: Menthol/Lanolin/Calamine/Znox 113 GM Tube 1 APPLIC TOPICAL ×2 (04:57→20:00)
[2022-08-11] MEDS: Nystatin Powder 15gm Bottle 1 APPLIC TOPICAL ×2 (04:58→20:01)
[2022-08-11 05:05] VITALS: BMI 40.5
[2022-08-11 05:46] LABS: Absolute Neutrophil Count 5.7 X10^3/uL (2.0-7.7); Basophil# 0.05 X10^3/uL; Basophil% 0.6 % (0-1); Eosinophil# 0.23 X10^3/uL; Eosinophils% 2.8 % (0-5); Hematocrit 29.2 % (40-54); Hemoglobin 8.8 g/dL (13.0-16.5); Lymphocyte % 16.9 % (19-41); Mean Corp Hgb Conc 30.1 g/dL (32-36); Mean Corpuscular Hgb 25.3 pg (27.0-32.0); Mean Corpuscular Volume 83.9 fL (80-94); Mean Platelet Vol. 11.6 fl (6.2-12.0); Monocyte# 0.85 X10^3/uL; Monocyte% 10.3 % (0-10); NRBC Flagged by Analyzer 0 % (0-5); Neutrophil # 5.71 X10^3/uL (2.7-7.7); Platelet Count 260 K/mm3 (150-450); RBC Distribution Width CV 16.7 % (11.6-14.6); RBC Distribution Width SD 51.2 fl (35.1-43.9); Red Blood Count 3.48 M/mm3 (4.6-6.2); White Blood Count 8.3 K/mm3 (4.4-11.0)
[2022-08-11 06:22] LABS: ALB/GLOB Ratio 0.5 RATIO (0.9-2.4); AST(SGOT) 21 U/L (15-37); Alanine Aminotransfer ALT/SGPT 18 U/L (16-61); Albumin, Serum 2.6 g/dL (3.2-5.0); Alkaline Phosphatase 95 U/L (45-117); Anion Gap 7 (5-15); BUN 8 mg/dL (7-18); BUN/Creat Ratio 11.3 RATIO (10-20); CPK Total, Creatine Kinase 42 U/L (39-308); Calcium,Total 9.1 mg/dL (8.5-10.1); Chloride 109 mmol/L (98-107); Creatinine, Serum 0.71 mg/dL (0.70-1.30); EST Glomerular Filtration Rate 122 mL/min (>60); Est Glom Filt Rate - Afr Amer 147 mL/min (>60); Estimated Creatinine Clearance 135.54 ml/min; Ferritin 94 ng/mL (26-388); Glucose 89 mg/dL (74-106); Iron 25 ug/dL (65-175); Iron Binding Capacity,Total 249 ug/dL (250-450); Potassium 3.8 mmol/L (3.5-5.1); Protein, Total 7.6 g/dL (6.4-8.2); Sodium Level 142 mmol/L (136-145)
[2022-08-11 07:15] VITALS: BP 115/69; PULSE 85; RESP 16; TEMP 37.2; O2SAT 92
[2022-08-11 07:36] LABS: Erythrocyte Sedimentation Rate 88 mm/hr (0-20)
[2022-08-11] MEDS: Gabapentin 100 MG Capsule 200 MG PO ×2 (08:05→17:29)
[2022-08-11] MEDS: Allopurinol 100 MG Tablet PO (08:05)
[2022-08-11] MEDS: Venlafaxine XR 75 MG Capsule 150 MG PO (08:05)
[2022-08-11] MEDS: Allopurinol 300 MG Tablet PO (08:05)
[2022-08-11] MEDS: Hydroxychloroquine 200 MG Tablet PO ×2 (08:05→20:01)
[2022-08-11] MEDS: Enoxaparin 40 MG/0.4 ML Syringe SC ×2 (08:05→20:00)
[2022-08-11] MEDS: Lisinopril 20 MG Tablet PO (08:05)
[2022-08-11] MEDS: amLODIPine 10 MG Tablet PO (08:06)
[2022-08-11] MEDS: Aspirin E.C. 81 MG Tablet PO (08:06)
[2022-08-11] MEDS: Clopidogrel Bisulfate 75 MG Tablet PO (08:06)
[2022-08-11] MEDS: Doxycycline 100 MG CAPSULE PO ×2 (08:06→20:00)
[2022-08-11] MEDS: Folic Acid 1 MG Tablet PO (08:06)
[2022-08-11] MEDS: Pantoprazole Sodium 40 MG Tablet PO (08:06)
[2022-08-11] MEDS: Fenofibrate 48 MG Tablet PO (08:06)
--- NOTE | 2022-08-11 11:02 | PCM.PROGNOTE ---
Subjective Subjective Afebrile VSS Maintaining appropriate oxygen saturation on RA Oral intake is good for fluids and food. Discussed with nursing - no problems that need addressed Reviewed the PT/OT/ST notes Medication list reviewed. All lab from this AM was personally reviewed. The white blood cell count is normal at 8.3 with 69% neutrophils. Platelets are within normal limits and hemoglobin is stable at 8.8. ESR is 88, up from 61 on 08/03/2022. Serum iron is low at 25 and the iron saturation is low at 10. Ferritin is 94 but he has acute infection and ferritin is acute phase reactant. LFTs are normal. The C-reactive protein is 43.8 which is up from 32.2 on 08/11/2022. Al tells me that he slept well last night and his pain is pretty good today. He denies calf pain, lightheadedness, shortness of breath, cough, chest pain, palpitations, dysuria and abdominal pain. Objective Data Objective Data Vital Signs: Vital Signs Temp Pulse Resp BP Pulse Ox O2 Del Method O2 Flow Rate 98.9 F 85 16 115/69 92 Room Air 2 08/11/22 07:15 08/11/22 07:15 08/11/22 07:15 08/11/22 07:15 08/11/22 07:15 08/11/22 07:15 08/02/22 07:40 Oxygen Flow Rate (L/min) 2 Oxygen Delivery Method Room Air Weight: 326 lb 2 oz Body Mass Index (BMI) 40.5 Intake & Output: Intake and Output for Last 24 Hours 08/09/22 08/10/22 08/11/22 23:59 23:59 23:59 Intake Total 2514 / 2514 2025 584 / 584 Output Total 1625 / 1625 1700 / 1700 650 / 650 Balance 889 / 889 326 / 326 -66 / -66 Lab / Micro Data Result Diagrams: 08/11/22 05:32 08/11/22 05:32 Labs: Laboratory Results - last 24 hr 08/11/22 05:32: WBC 8.3, RBC 3.48 L, Hgb 8.8 L, Hct 29.2 L, MCV 83.9, MCH 25.3 L, MCHC 30.1 L, RDW Std Deviation 51.2 H, RDW Coeff of Ghassan 16.7 H, Plt Count 260, MPV 11.6, Immature Gran % (Auto) 0.400, Neut % (Auto) 69.0, Lymph % (Auto) 16.9 L, [place] % (Auto) 10.3 H, Eos % (Auto) 2.8, Baso % (Auto) 0.6, Absolute Neuts (auto) 5.7, Absolute Lymphs (auto) 1.40, Nucleated RBC % 0, ESR 88 H 08/11/22 05:32: Sodium 142, Potassium 3.8, Chloride 109 H, Carbon Dioxide 26.0, Anion Gap 7, BUN 8, Creatinine 0.71, Estim Creat Clear Calc 135.54, Est GFR (MDRD) Af Amer 147, Est GFR (MDRD) Non-Af 122, BUN/Creatinine Ratio 11.3, Glucose 89, Calcium 9.1, Iron 25 L, TIBC 249 L, Iron Saturation 10.0 L, Ferritin 94, Total Bilirubin 0.40, AST 21, ALT 18, Alkaline Phosphatase 95, Total Creatine Kinase 42, C-React Prot Ext Range 43.80 H, Total Protein 7.6, Albumin 2.6 L, Globulin 5.0 H, Albumin/Globulin Ratio 0.5 L Micro: Microbiology 07/24/22 18:35 Stool Stool Occult Blood (MARIA T) - Final Occult Blood Positive Physical Exam Const alert, oriented x3 and no apparent distress HEENT moist oral mucous membranes Resp normal respiratory effort and clear to auscultation bilaterally Resp Narrative: Denies chest pain and hemoptysis. He is not tachypneic. Effort and Inspection: Negative for tachypneic or labored Auscultation: diminished lung sounds bilateral (suspect due to body habitus.) Cardio regular rate, regular rhythm, no rub and no gallops Cardio Narrative: He has a 2/6 systolic MM at the apex that I did not hear at admission. No gallop and no rub. No ectopy. GI normal to inspection, nondistended, normoactive bowel sounds, soft to palpation, non-tender and non-distended GI Narrative: no guarding with palpation Extremity Negative for no calf tenderness General Extremity: Negative for edema Skin no jaundice General Skin Exam: no breakdown Rashes: no rashes Neuro Neuro Narrative: Trace Left facial droop. 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 Continue therapy 2. Iron sucrose - start today. He is on a PPI for heme + stool and likely not absorbing iron. Will need to ask him if he has ever had a colonoscopy. Give 100 mg today and if no adverse reaction will start 200 mg daily for 3 doses tomorrow. 3. ESR and the CRP both went up. He has not had any fevers or sweats however, he is on Tylenol 1,000 GM every 8H and this may be suppressing a fever.......change the Tylenol to PRN. 4. Continue the current pain regimen as he is sleeping better and has less pain with changes made yesterday. Charges/Coding Visit Charges Inpatient E&M: 83487 Subs Hosp L2
[2022-08-11] MEDS: Sodium Ferric Gluconat 125 MG in 0.9% Normal Saline 100 ML 110 MG IV (14:37)
[2022-08-11] MEDS: oxyCODONE 5 MG Tablet PO ×2 (14:43→19:56)
[2022-08-11 16:45] VITALS: BMI 40.5
[2022-08-11 19:33] VITALS: BP 115/42; RESP 16; TEMP 37.1; O2SAT 95
[2022-08-11] MEDS: Atorvastatin Calcium 40 MG Tablet PO (20:01)
[2022-08-11 20:04] VITALS: BMI 40.5
[2022-08-11 20:10] VITALS: PULSE 81; RESP 16; O2SAT 96
[2022-08-12] MEDS: Baclofen 10 MG Tablet 5 MG PO ×3 (05:20→22:33)
[2022-08-12] MEDS: Nystatin Powder 15gm Bottle 1 APPLIC TOPICAL ×2 (05:20→22:28)
[2022-08-12] MEDS: Menthol/Lanolin/Calamine/Znox 113 GM Tube 1 APPLIC TOPICAL ×2 (05:30→22:28)
[2022-08-12] MEDS: Acetaminophen 500 MG Tablet 1000 MG PO (05:35)
[2022-08-12] MEDS: oxyCODONE 5 MG Tablet PO ×3 (05:35→22:32)
[2022-08-12] MEDS: Arthritis Pain Compound 60 CLICK TUBE TOPICAL ×3 (05:37→22:27)
[2022-08-12 06:00] VITALS: BMI 40.7
[2022-08-12] MEDS: Enoxaparin 40 MG/0.4 ML Syringe SC ×2 (07:55→22:33)
[2022-08-12] MEDS: Allopurinol 100 MG Tablet PO (08:03)
[2022-08-12] MEDS: Allopurinol 300 MG Tablet PO (08:03)
[2022-08-12] MEDS: Venlafaxine XR 75 MG Capsule 150 MG PO (08:04)
[2022-08-12] MEDS: Fenofibrate 48 MG Tablet PO (08:04)
[2022-08-12] MEDS: Doxycycline 100 MG CAPSULE PO ×2 (08:04→22:32)
[2022-08-12] MEDS: Hydroxychloroquine 200 MG Tablet PO ×2 (08:04→22:33)
[2022-08-12] MEDS: Folic Acid 1 MG Tablet PO (08:04)
[2022-08-12] MEDS: Aspirin E.C. 81 MG Tablet PO (08:04)
[2022-08-12] MEDS: amLODIPine 10 MG Tablet PO (08:04)
[2022-08-12] MEDS: Lisinopril 20 MG Tablet PO (08:05)
[2022-08-12] MEDS: Clopidogrel Bisulfate 75 MG Tablet PO (08:05)
[2022-08-12] MEDS: Gabapentin 100 MG Capsule 200 MG PO ×2 (08:05→16:41)
[2022-08-12] MEDS: Pantoprazole Sodium 40 MG Tablet PO (08:05)
[2022-08-12 09:22] VITALS: BP 122/54; PULSE 94; RESP 18; TEMP 37.1; O2SAT 92
[2022-08-12 13:13] VITALS: BMI 40.7
[2022-08-12 20:00] VITALS: BP 126/47; PULSE 83; RESP 16; TEMP 36.8; O2SAT 92
[2022-08-12] MEDS: Atorvastatin Calcium 40 MG Tablet PO (22:33)
[2022-08-12 22:35] VITALS: BMI 40.7
[2022-08-13] MEDS: Baclofen 10 MG Tablet 5 MG PO ×3 (05:20→21:34)
[2022-08-13] MEDS: Arthritis Pain Compound 60 CLICK TUBE TOPICAL ×3 (05:20→21:35)
[2022-08-13] MEDS: Menthol/Lanolin/Calamine/Znox 113 GM Tube 1 APPLIC TOPICAL ×2 (05:21→21:37)
[2022-08-13] MEDS: Nystatin Powder 15gm Bottle 1 APPLIC TOPICAL ×2 (05:21→21:38)
[2022-08-13 05:24] VITALS: BMI 40.8
[2022-08-13] MEDS: Acetaminophen 500 MG Tablet 1000 MG PO (05:24)
[2022-08-13] MEDS: oxyCODONE 5 MG Tablet PO ×2 (05:25→21:36)
[2022-08-13] MEDS: Senna/Docusate Sodium 1 Tablet PO (08:36)
[2022-08-13] MEDS: Aspirin E.C. 81 MG Tablet PO (08:36)
[2022-08-13] MEDS: amLODIPine 10 MG Tablet PO (08:36)
[2022-08-13] MEDS: Lisinopril 20 MG Tablet PO (08:37)
[2022-08-13] MEDS: Hydroxychloroquine 200 MG Tablet PO ×2 (08:37→21:34)
[2022-08-13] MEDS: Fenofibrate 48 MG Tablet PO (08:37)
[2022-08-13] MEDS: Doxycycline 100 MG CAPSULE PO ×2 (08:37→21:34)
[2022-08-13] MEDS: Allopurinol 300 MG Tablet PO (08:37)
[2022-08-13] MEDS: Clopidogrel Bisulfate 75 MG Tablet PO (08:37)
[2022-08-13] MEDS: Venlafaxine XR 75 MG Capsule 150 MG PO (08:37)
[2022-08-13] MEDS: Folic Acid 1 MG Tablet PO (08:37)
[2022-08-13] MEDS: Allopurinol 100 MG Tablet PO (08:37)
[2022-08-13] MEDS: Pantoprazole Sodium 40 MG Tablet PO (08:37)
[2022-08-13 08:38] VITALS: BP 128/47; PULSE 81; RESP 16; TEMP 36.6; O2SAT 96
[2022-08-13] MEDS: Enoxaparin 40 MG/0.4 ML Syringe SC ×2 (08:38→21:33)
[2022-08-13] MEDS: Gabapentin 100 MG Capsule 200 MG PO ×2 (08:44→17:06)
[2022-08-13 10:00] VITALS: BMI 40.8
[2022-08-13] MEDS: Sodium Ferric Gluconat 250 MG in 0.9% Normal Saline 250 ML 135 MG IV (10:22)
--- NOTE | 2022-08-13 16:19 | PCM.PROGNOTE ---
Subjective Subjective Afebrile VSS-blood pressure is well controlled and was 128/47 today with a heart rate of 81. Maintaining appropriate oxygen saturation on RA Oral intake is good Weight is down approximately 4 pounds since admission. Discussed with nursing - no problems that need addressed Reviewed the PT/OT/ST notes Medication list reviewed. Only complaint today is back pain. No radiation into the legs. Stiff in the AM when he awakens. Has seen a doc at the [facility] and he plans on having surgery on his low back at some time. Denies paresthesias in the legs. No bowel or bladder dysfunction. Objective Data Objective Data Vital Signs: Vital Signs Temp Pulse Resp BP Pulse Ox O2 Del Method O2 Flow Rate 97.9 F 81 16 128/47 H 96 Room Air 2 08/13/22 08:38 08/13/22 08:38 08/13/22 08:38 08/13/22 08:38 08/13/22 08:38 08/13/22 08:38 08/02/22 07:40 Oxygen Flow Rate (L/min) 2 Oxygen Delivery Method Room Air Weight: 328 lb 7.82 oz Body Mass Index (BMI) 40.8 Intake & Output: Intake and Output for Last 24 Hours 08/11/22 08/12/22 08/13/22 23:59 23:59 23:59 Intake Total 2056 / 2156 2186 / 2186 1756 / 1756 Output Total 1300 / 1600 1600 / 1600 750 / 750 Balance 756 / 556 586 / 586 1006 / 1006 Lab / Micro Data Result Diagrams: 08/25/22 05:39 08/25/22 05:39 Micro: Microbiology 07/24/22 18:35 Stool Stool Occult Blood (MARIA T) - Final Occult Blood Positive Physical Exam Const alert, oriented x3 and no apparent distress Constitutional Narrative: Does no appear to be in severe pain when General Appearance: cooperative Resp clear to auscultation bilaterally Auscultation: diminished lung sounds Cardio regular rate, regular rhythm and no gallops Cardio Narrative: No ectopy GI normal to inspection, nondistended, normoactive bowel sounds, soft to palpation and non-tender Skin General Skin Exam: no breakdown Rashes: no rashes Assessment & Plan Assessment/Plan (1) Physical debility: (2) Stroke/cerebrovascular accident: (3) PFO (patent foramen ovale): (4) SAH (subarachnoid hemorrhage): (5) Aortic valve vegetation: (6) Endocarditis: (7) Severe aortic valve regurgitation: (8) DVT of lower limb, acute: (9) Chronic back pain: (10) 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 Continue therapy 2. Start Oxycontin 10 mg Q12 H tomorrow 3. Continue antibiotics and weekly lab. Charges/Coding Visit Charges Inpatient E&M: 62214 Subs Hosp L2
[2022-08-13] MEDS: Atorvastatin Calcium 40 MG Tablet PO (21:38)
[2022-08-13 22:00] VITALS: BP 145/54; PULSE 68; RESP 16; TEMP 37.2; O2SAT 98
[2022-08-14] MEDS: Arthritis Pain Compound 60 CLICK TUBE TOPICAL ×2 (05:47→22:36)
[2022-08-14] MEDS: Baclofen 10 MG Tablet 5 MG PO ×3 (05:48→22:50)
[2022-08-14 05:54] VITALS: BMI 40.8
[2022-08-14 08:14] VITALS: BP 142/54; PULSE 80; RESP 18; TEMP 37.1; O2SAT 94
[2022-08-14] MEDS: Senna/Docusate Sodium 1 Tablet PO (08:37)
[2022-08-14] MEDS: Lisinopril 20 MG Tablet PO (08:37)
[2022-08-14] MEDS: Allopurinol 100 MG Tablet PO (08:37)
[2022-08-14] MEDS: Fenofibrate 48 MG Tablet PO (08:38)
[2022-08-14] MEDS: Venlafaxine XR 75 MG Capsule 150 MG PO (08:38)
[2022-08-14] MEDS: Doxycycline 100 MG CAPSULE PO ×2 (08:38→22:48)
[2022-08-14] MEDS: Gabapentin 100 MG Capsule 200 MG PO ×2 (08:38→17:06)
[2022-08-14] MEDS: Hydroxychloroquine 200 MG Tablet PO ×2 (08:38→22:49)
[2022-08-14] MEDS: Clopidogrel Bisulfate 75 MG Tablet PO (08:38)
[2022-08-14] MEDS: Pantoprazole Sodium 40 MG Tablet PO (08:38)
[2022-08-14] MEDS: Folic Acid 1 MG Tablet PO (08:38)
[2022-08-14] MEDS: Aspirin E.C. 81 MG Tablet PO (08:38)
[2022-08-14] MEDS: amLODIPine 10 MG Tablet PO (08:38)
[2022-08-14] MEDS: Allopurinol 300 MG Tablet PO (08:38)
[2022-08-14] MEDS: oxyCODONE 5 MG Tablet PO (08:39)
[2022-08-14] MEDS: Enoxaparin 40 MG/0.4 ML Syringe SC (08:59)
[2022-08-14] MEDS: Sodium Ferric Gluconat 250 MG in 0.9% Normal Saline 250 ML 135 MG IV (10:22)
[2022-08-14] MEDS: 0.9% Saline Lock 10 ML Syringe IV ×2 (10:23→12:40)
--- NOTE | 2022-08-14 12:05 | PN_ITS ---
Subjective Subjective Afebrile VSS Maintaining appropriate oxygen saturation on RA Oral intake is good Discussed with nursing - no problems that need addressed Reviewed the PT/OT/ST notes Medication list reviewed. Al continues to have back pain. He denies pain in his legs and also denies paresthesias. He is very stiff in the morning when he awakens but, pain and stiffness improve after he is standing up and moving. Prior to admission to the hospital he was taking oxycodone 10 mg in the a.m. and 10 mg around suppertime. He has been working full-time and states that he has pain while at work and he has a hard time getting out of bed in the morning due to severe pain. He has been trying to keep to a schedule of 10 mg twice a day while in rehab however at times his pain is up to an 8 and he waits to take pain medication until it is closer to evening. He denies cephalgia, lightheadedness, shortness of breath, chest pain, nausea/vomiting/abdominal pain, dysuria and calf tenderness. Objective Data Objective Data Vital Signs: Vital Signs Temp Pulse Resp BP Pulse Ox O2 Del Method O2 Flow Rate 98.8 F 80 18 142/54 H 94 Room Air 2 08/14/22 08:14 08/14/22 08:14 08/14/22 08:14 08/14/22 08:14 08/14/22 08:14 08/14/22 08:14 08/02/22 07:40 Oxygen Flow Rate (L/min) 2 Oxygen Delivery Method Room Air Weight: 328 lb 4.293 oz Body Mass Index (BMI) 40.8 Intake & Output: Intake and Output for Last 24 Hours 08/12/22 08/13/22 08/14/22 23:59 23:59 23:59 Intake Total 2186 / 2186 2736 / 2736 724 / 724 Output Total 1600 / 1600 1550 / 1550 450 / 450 Balance 586 / 586 1186 / 1186 274 / 274 Lab / Micro Data Result Diagrams: 08/11/22 05:32 08/11/22 05:32 Micro: Microbiology 07/24/22 18:35 Stool Stool Occult Blood (MARIA T) - Final Occult Blood Positive Physical Exam Const alert, oriented x3 and no apparent distress Constitutional Narrative: Has to go straight to the bed after therapy due to pain of 7-8. General Appearance: cooperative HEENT HEENT Narrative: No evidence of thrush and he denies having a bad taste in the mouth or painful swallowing. Mouth: dry mucous membranes Neck supple Resp clear to auscultation bilaterally Cardio regular rate, regular rhythm and no gallops Cardio Narrative: There is a 2/6 systolic murmur heard best at the apex. GI normal to inspection, nondistended, normoactive bowel sounds, soft to palpation and non-tender GI Narrative: No guarding with palpation. No complaint of diarrhea. 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 Continue therapy 2. Start OxyContin 10 mg at at bedtime to have something on board continuously for pain control and continue the Oxycodone 10 mg Q 4 H PRN pain. Al is agreeable to this plan. Will have him follow up with Dr. Russo for pain control post discharge from rehab. 3. Pt would like to follow up with [facility] for endocarditis and PFO. He knows that he would likely be referred to [facility] for closure of the PFO. 4. He is agreeable to following up with a radio television technical director at [place] for hx of RA......not sure he has RA.....he was placed on Plaquenil by PCP and has not been getting eye exams. He says he was started on Plaquenil after the doctor looked at the CT of his back. Would like to repeat a CT of the head and if the SAH is resolved consider starting Eliquis It has been over a month since he had a stroke and got TNK. Charges/Coding Visit Charges Inpatient E&M: 03650 Subs Hosp L2
[2022-08-14 14:19] VITALS: BMI 40.8
[2022-08-14 19:31] VITALS: BP 135/45; PULSE 79; RESP 16; TEMP 36.8; O2SAT 95
[2022-08-14] MEDS: Menthol/Lanolin/Calamine/Znox 113 GM Tube 1 APPLIC TOPICAL (22:39)
[2022-08-14] MEDS: Nystatin Powder 15gm Bottle 1 APPLIC TOPICAL (22:39)
[2022-08-14 22:40] VITALS: BMI 40.8
[2022-08-14] MEDS: APIXABAN 5 MG TABLET PO (22:50)
[2022-08-14] MEDS: Atorvastatin Calcium 40 MG Tablet PO (22:51)
[2022-08-14] MEDS: oxyCODONE HCl Cr 10 MG Tablet PO (22:55)
[2022-08-14 23:00] VITALS: PULSE 80; RESP 18; O2SAT 95
[2022-08-14] MEDS: Albuterol 2.5 MG/3 ML VIAL.NEB. INHALATION (23:00)
[2022-08-15 05:49] VITALS: BMI 40.5
[2022-08-15] MEDS: Arthritis Pain Compound 60 CLICK TUBE TOPICAL ×3 (05:50→21:22)
[2022-08-15] MEDS: Baclofen 10 MG Tablet 5 MG PO ×3 (05:50→21:28)
[2022-08-15] MEDS: Fenofibrate 48 MG Tablet PO (07:50)
[2022-08-15] MEDS: Allopurinol 300 MG Tablet PO (07:50)
[2022-08-15] MEDS: amLODIPine 10 MG Tablet PO (07:50)
[2022-08-15] MEDS: Pantoprazole Sodium 40 MG Tablet PO (07:50)
[2022-08-15] MEDS: Venlafaxine XR 75 MG Capsule 150 MG PO (07:50)
[2022-08-15] MEDS: Lisinopril 20 MG Tablet PO (07:50)
[2022-08-15] MEDS: Hydroxychloroquine 200 MG Tablet PO ×2 (07:50→21:28)
[2022-08-15] MEDS: APIXABAN 5 MG TABLET PO ×2 (07:50→21:28)
[2022-08-15] MEDS: Folic Acid 1 MG Tablet PO (07:50)
[2022-08-15] MEDS: Aspirin E.C. 81 MG Tablet PO (07:50)
[2022-08-15] MEDS: Allopurinol 100 MG Tablet PO (07:50)
[2022-08-15] MEDS: Doxycycline 100 MG CAPSULE PO ×2 (07:51→21:28)
[2022-08-15] MEDS: Clopidogrel Bisulfate 75 MG Tablet PO (07:51)
[2022-08-15] MEDS: Gabapentin 100 MG Capsule 200 MG PO ×2 (07:55→17:30)
[2022-08-15] MEDS: 0.9% Saline Lock 10 ML Syringe IV (07:58)
[2022-08-15 08:09] VITALS: BP 146/55; PULSE 83; RESP 16; TEMP 37; O2SAT 95
[2022-08-15] MEDS: oxyCODONE HCl Cr 10 MG Tablet PO ×2 (10:27→21:27)
[2022-08-15] MEDS: Sodium Ferric Gluconat 250 MG in 0.9% Normal Saline 250 ML 135 MG IV (11:19)
[2022-08-15 13:48] VITALS: BMI 40.5
[2022-08-15 20:00] VITALS: BP 140/54; PULSE 77; RESP 16; TEMP 36; O2SAT 93
[2022-08-15] MEDS: Nystatin Powder 15gm Bottle 1 APPLIC TOPICAL (21:22)
[2022-08-15] MEDS: Menthol/Lanolin/Calamine/Znox 113 GM Tube 1 APPLIC TOPICAL (21:22)
[2022-08-15] MEDS: Atorvastatin Calcium 40 MG Tablet PO (21:28)
[2022-08-15 21:33] VITALS: BMI 40.5
[2022-08-16 04:44] VITALS: BMI 40.4
[2022-08-16] MEDS: Arthritis Pain Compound 60 CLICK TUBE TOPICAL ×3 (04:54→21:00)
[2022-08-16] MEDS: Baclofen 10 MG Tablet 5 MG PO ×3 (04:55→21:01)
[2022-08-16 07:19] VITALS: BP 130/51; PULSE 77; RESP 15; TEMP 36.7; O2SAT 96
[2022-08-16] MEDS: Hydroxychloroquine 200 MG Tablet PO ×2 (08:14→21:02)
[2022-08-16] MEDS: Allopurinol 100 MG Tablet PO (08:14)
[2022-08-16] MEDS: Gabapentin 100 MG Capsule 200 MG PO ×2 (08:14→17:16)
[2022-08-16] MEDS: Allopurinol 300 MG Tablet PO (08:14)
[2022-08-16] MEDS: Lisinopril 20 MG Tablet PO (08:14)
[2022-08-16] MEDS: Venlafaxine XR 75 MG Capsule 150 MG PO (08:14)
[2022-08-16] MEDS: Folic Acid 1 MG Tablet PO (08:14)
[2022-08-16] MEDS: Aspirin E.C. 81 MG Tablet PO (08:15)
[2022-08-16] MEDS: APIXABAN 5 MG TABLET PO ×2 (08:15→21:00)
[2022-08-16] MEDS: Clopidogrel Bisulfate 75 MG Tablet PO (08:15)
[2022-08-16] MEDS: Doxycycline 100 MG CAPSULE PO ×2 (08:15→21:00)
[2022-08-16] MEDS: amLODIPine 10 MG Tablet PO (08:15)
[2022-08-16] MEDS: Pantoprazole Sodium 40 MG Tablet PO (08:15)
[2022-08-16] MEDS: Senna/Docusate Sodium 1 Tablet PO ×2 (08:15→21:02)
[2022-08-16] MEDS: Fenofibrate 48 MG Tablet PO (08:15)
[2022-08-16] MEDS: Polyethylene Glycol 3350 17 GM PACKET PO (08:19)
[2022-08-16] MEDS: oxyCODONE HCl Cr 10 MG Tablet PO ×2 (09:04→21:02)
[2022-08-16] MEDS: Sodium Ferric Gluconat 250 MG in 0.9% Normal Saline 250 ML 135 MG IV (10:10)
[2022-08-16] MEDS: 0.9% Saline Lock 10 ML Syringe IV ×2 (12:17→20:48)
[2022-08-16 12:43] VITALS: BMI 40.4
[2022-08-16 19:38] VITALS: BP 138/52; PULSE 82; RESP 18; TEMP 37.1; O2SAT 96
[2022-08-16] MEDS: Atorvastatin Calcium 40 MG Tablet PO ×2 (20:57→21:01)
[2022-08-16] MEDS: Menthol/Lanolin/Calamine/Znox 113 GM Tube 1 APPLIC TOPICAL (21:00)
[2022-08-16] MEDS: Nystatin Powder 15gm Bottle 1 APPLIC TOPICAL (21:01)
[2022-08-16 21:11] VITALS: BMI 40.4
[2022-08-16 22:00] VITALS: PULSE 86; RESP 16; O2SAT 95
[2022-08-17] MEDS: Baclofen 10 MG Tablet 5 MG PO ×3 (05:39→21:03)
[2022-08-17] MEDS: Arthritis Pain Compound 60 CLICK TUBE TOPICAL ×3 (05:41→21:02)
[2022-08-17] MEDS: oxyCODONE 5 MG Tablet 10 MG PO ×2 (05:56→13:49)
[2022-08-17 07:00] VITALS: BMI 40.4
[2022-08-17 07:20] VITALS: O2SAT 98
[2022-08-17] MEDS: APIXABAN 5 MG TABLET PO ×2 (08:44→21:03)
[2022-08-17] MEDS: Allopurinol 300 MG Tablet PO (08:44)
[2022-08-17] MEDS: Clopidogrel Bisulfate 75 MG Tablet PO (08:45)
[2022-08-17] MEDS: Hydroxychloroquine 200 MG Tablet PO ×2 (08:45→21:03)
[2022-08-17] MEDS: Fenofibrate 48 MG Tablet PO (08:45)
[2022-08-17] MEDS: Aspirin E.C. 81 MG Tablet PO (08:45)
[2022-08-17] MEDS: Pantoprazole Sodium 40 MG Tablet PO (08:45)
[2022-08-17] MEDS: amLODIPine 10 MG Tablet PO (08:45)
[2022-08-17] MEDS: Doxycycline 100 MG CAPSULE PO ×2 (08:45→21:02)
[2022-08-17] MEDS: Folic Acid 1 MG Tablet PO (08:45)
[2022-08-17] MEDS: Lisinopril 20 MG Tablet PO (08:45)
[2022-08-17] MEDS: Allopurinol 100 MG Tablet PO (08:45)
[2022-08-17] MEDS: oxyCODONE HCl Cr 10 MG Tablet PO ×2 (08:48→21:02)
[2022-08-17] MEDS: Gabapentin 100 MG Capsule 200 MG PO ×2 (08:48→17:15)
[2022-08-17] MEDS: Venlafaxine XR 75 MG Capsule 150 MG PO (08:49)
[2022-08-17 10:00] VITALS: BP 143/56; PULSE 78; RESP 18; TEMP 36.6; O2SAT 93
--- NOTE | 2022-08-17 11:18 | PN_ITS ---
Subjective Subjective Afebrile VSS-systolic blood pressures are mildly elevated and have ranged from 132 146 since Wednesday. The heart rate is within normal limits. Diastolics are always normal. Maintaining appropriate oxygen saturation on RA Oral intake is excellent Discussed with nursing - no problems that need addressed Reviewed the PT/OT/ST notes Medication list reviewed. Has only taken oxycodone once since being started on OxyContin 10 mg BID. No complaints today but, tells me that after PT his back pain is worse.......I reinforced with him that he has to ask for the short acting Oxycodone being used for breakthrough pain. Health denies headache, lightheadedness, cough, shortness of breath, chest pain, palpitations, calf pain, dysuria and nausea/vomiting/abdominal pain. Denies hematochezia, bleeding from the rectum, nose bleeds. Objective Data Objective Data Vital Signs: Vital Signs Temp Pulse Resp BP Pulse Ox O2 Del Method O2 Flow Rate 97.9 F 78 18 143/56 H 93 Room Air 2 08/17/22 10:08/17/22 10:00 08/17/22 10:00 08/17/22 10:08/17/22 10:08/17/22 10:08/17/22 07:20 Oxygen Flow Rate (L/min) 2 Oxygen Delivery Method Room Air Weight: 325 lb 9.964 oz Body Mass Index (BMI) 40.4 Intake & Output: Intake and Output for Last 24 Hours 08/15/22 08/16/22 08/17/22 23:59 23:59 23:59 Intake Total 1779.25 / 1891.25 3016 / 3016 834 / 834 Output Total 1050 / 1050 1500 / 1500 1275 / 1275 Balance 729.25 / 841.25 1516 / 1516 -441 / -441 Lab / Micro Data Result Diagrams: 08/11/22 05:32 08/11/22 05:32 Micro: Microbiology 07/24/22 18:35 Stool Stool Occult Blood (MARIA T) - Final Occult Blood Positive Physical Exam Const alert, oriented x3 and no apparent distress General Appearance: cooperative HEENT moist oral mucous membranes Resp normal respiratory effort, normal air movement and clear to auscultation bilaterally Cardio regular rate, regular rhythm and no gallops Cardio Narrative: I no longer hear the MM at the apex. GI normal to inspection, nondistended, normoactive bowel sounds, soft to palpation and non-tender Extremity no calf tenderness General Extremity: Negative for edema Skin General Skin Exam: no breakdown Rashes: no rashes Psych affect normal Appearance: appropriate Assessment & Plan Assessment/Plan (1) Physical debility: (2) Stroke/cerebrovascular accident: (3) PFO (patent foramen ovale): (4) SAH (subarachnoid hemorrhage): (5) Aortic valve vegetation: (6) Endocarditis: (7) Severe aortic valve regurgitation: (8) DVT of lower limb, acute: (9) Presence of arterial stent: (10) Normocytic hypochromic anemia: (11) Rheumatoid arthritis: (12) Hyperuricemia: (13) Gout: (14) Hypertension: (15) Abnormal LFTs: (16) CATHY (obstructive sleep apnea): (17) Chronic back pain: (18) 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 Continue therapy 2. Recheck weekly lab in the a.m. 3. Plan discharge for 08/26/2022 to home 4. Will follow up with Dr. Christensen post DC for PFO/endocarditis.....ECHO has been scheduled for 08/27/22 at [facility]. 5. Continue Eliquis for embolic strokes/PFO and for DVT of the RLE. 6. Follow up with rheumatology post DC. Will refer to the [facility]. 7. Will schedule an appt for him to see Dr. Russo for pain management within 1 week post discharge from rehab. Al tells me that his mornings are a lot better since the Oxycontin was started and he is not nearly as stiff and immobile. We will continue OxyContin at [facility]. Charges/Coding Visit Charges Inpatient E&M: 10998 Subs Hosp L2
[2022-08-17 14:57] VITALS: BMI 40.4
[2022-08-17 19:38] VITALS: BP 131/51; PULSE 82; RESP 18; TEMP 37.1; O2SAT 94
[2022-08-17 19:44] VITALS: BMI 40.4
[2022-08-17 20:47] VITALS: BMI 40.4
[2022-08-17] MEDS: 0.9% Saline Lock 10 ML Syringe IV (21:01)
[2022-08-17] MEDS: Menthol/Lanolin/Calamine/Znox 113 GM Tube 1 APPLIC TOPICAL (21:02)
[2022-08-17] MEDS: Senna/Docusate Sodium 1 Tablet PO (21:03)
[2022-08-17] MEDS: Nystatin Powder 15gm Bottle 1 APPLIC TOPICAL (21:03)
[2022-08-17 22:00] VITALS: PULSE 78; RESP 15; O2SAT 94
[2022-08-18] MEDS: Baclofen 10 MG Tablet 5 MG PO ×3 (05:11→21:29)
[2022-08-18] MEDS: Arthritis Pain Compound 60 CLICK TUBE TOPICAL ×3 (05:12→21:22)
[2022-08-18] MEDS: oxyCODONE 5 MG Tablet 10 MG PO ×3 (05:34→19:40)
[2022-08-18 05:48] LABS: Absolute Lymphocyte Count 1.35 X10^3/uL (0.83-4.51); Absolute Neutrophil Count 4.4 X10^3/uL (2.0-7.7); Basophil# 0.04 X10^3/uL; Basophil% 0.6 % (0-1); Eosinophil# 0.39 X10^3/uL; Eosinophils% 5.7 % (0-5); Hematocrit 28.9 % (40-54); Hemoglobin 8.4 g/dL (13.0-16.5); Lymphocyte # 1.35 X10^3/ul (0.83-4.51); Lymphocyte % 19.6 % (19-41); Mean Corp Hgb Conc 29.1 g/dL (32-36); Mean Corpuscular Hgb 24.9 pg (27.0-32.0); Mean Corpuscular Volume 85.8 fL (80-94); Mean Platelet Vol. 11.7 fl (6.2-12.0); Monocyte# 0.65 X10^3/uL; Monocyte% 9.4 % (0-10); NRBC Flagged by Analyzer 0 % (0-5); Neutrophil # 4.43 X10^3/uL (2.7-7.7); Neutrophil % 64.3 % (47-70); Platelet Count 238 K/mm3 (150-450); RBC Distribution Width CV 16.9 % (11.6-14.6); RBC Distribution Width SD 52.4 fl (35.1-43.9); Red Blood Count 3.37 M/mm3 (4.6-6.2); White Blood Count 6.9 K/mm3 (4.4-11.0)
[2022-08-18 06:00] VITALS: BMI 40.6
[2022-08-18 06:06] VITALS: O2SAT 93
[2022-08-18 06:14] LABS: Anion Gap 5 (5-15); BUN 16 mg/dL (7-18); BUN/Creat Ratio 19.9 RATIO (10-20); CPK Total, Creatine Kinase 37 U/L (39-308); Calcium,Total 9.3 mg/dL (8.5-10.1); Chloride 109 mmol/L (98-107); EST Glomerular Filtration Rate 105 mL/min (>60); Est Glom Filt Rate - Afr Amer 127 mL/min (>60); Glucose 95 mg/dL (74-106); Sodium Level 141 mmol/L (136-145)
[2022-08-18 06:59] LABS: Erythrocyte Sedimentation Rate 55 mm/hr (0-20)
[2022-08-18 07:29] VITALS: BP 135/49; PULSE 84; RESP 16; TEMP 37.1; O2SAT 95
[2022-08-18] MEDS: Gabapentin 100 MG Capsule 200 MG PO ×2 (08:22→17:13)
[2022-08-18] MEDS: Folic Acid 1 MG Tablet PO (08:22)
[2022-08-18] MEDS: Venlafaxine XR 75 MG Capsule 150 MG PO (08:22)
[2022-08-18] MEDS: oxyCODONE HCl Cr 10 MG Tablet PO ×2 (08:22→21:26)
[2022-08-18] MEDS: Fenofibrate 48 MG Tablet PO (08:22)
[2022-08-18] MEDS: Aspirin E.C. 81 MG Tablet PO (08:22)
[2022-08-18] MEDS: Doxycycline 100 MG CAPSULE PO ×2 (08:22→21:27)
[2022-08-18] MEDS: amLODIPine 10 MG Tablet PO (08:23)
[2022-08-18] MEDS: Lisinopril 20 MG Tablet PO (08:23)
[2022-08-18] MEDS: Allopurinol 100 MG Tablet PO (08:23)
[2022-08-18] MEDS: Allopurinol 300 MG Tablet PO (08:23)
[2022-08-18] MEDS: Hydroxychloroquine 200 MG Tablet PO ×2 (08:23→21:29)
[2022-08-18] MEDS: Clopidogrel Bisulfate 75 MG Tablet PO (08:23)
[2022-08-18] MEDS: APIXABAN 5 MG TABLET PO ×2 (08:23→21:27)
[2022-08-18] MEDS: Pantoprazole Sodium 40 MG Tablet PO (08:23)
--- NOTE | 2022-08-18 10:01 | CASEMGMT ---
Social Work IDT met with patient and for Team meeting. Discussed patient's progress in PT/OT/SN. Educated to [facility] insurance with [employer] 08/20, with [facility] 08/26, once IV ATB are completed. IDT recommending OP PT. SW offered choices. Pt prefers [place] location. SW to coordinate [facility] OP PT. No DME needs. to transport. 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
--- NOTE | 2022-08-18 12:46 | PCM.PROGNOTE ---
Subjective Subjective Al was seen on team rounds today. His Lise was present in the room for rounds. Afebrile VSS Maintaining appropriate oxygen saturation on RA Oral intake is good Discussed with nursing - no problems that need addressed Reviewed the PT/OT/ST notes Medication list reviewed. All lab drawn this morning was personally reviewed. Hemoglobin is 8.4 which is stable. White blood cell count is normal at 6.9 and platelets are within normal limits. Eosinophils are mildly increased at 5.7% and this may be causing some of the itching. ESR today is 55, down from 88 on 08/11/2022. Sodium is 144 and the potassium is 4.0. BUN is 16 with a creatinine of 0.8 which is up from 0.62 on 08/05/2022. CRP today is 61.9 which is up from 43.8 on 08/11/2022. Total CK is 37 today. Albaro has been scratching and when he scratches there are little drops of bleed. Has a few pimples on the back that were scratched open. Left blood on the sheet, very small amount, and there is not currently any active bleeding. I reminded him that he is now on an anticoagulant and he will bleed easier. Al denies cephalgia, lightheadedness, chest pain, shortness of breath, palpitations, abdominal pain, dysuria and calf pain. He is sleeping much better at night. He still complains of back pain however he rarely asks for oxycodone. Objective Data Objective Data Vital Signs: Vital Signs Temp Pulse Resp BP Pulse Ox O2 Del Method O2 Flow Rate 98.8 F 84 16 135/49 H 95 Room Air 2 08/18/22 07:29 08/18/22 07:29 08/18/22 07:29 08/18/22 07:29 08/18/22 07:29 08/18/22 07:29 08/17/22 07:20 Oxygen Flow Rate (L/min) 2 Oxygen Delivery Method Room Air Weight: 326 lb 11.601 oz Body Mass Index (BMI) 40.6 Intake & Output: Intake and Output for Last 24 Hours 08/16/22 08/17/22 08/18/22 23:59 23:59 23:59 Intake Total 3016 / 3016 2616.00 / 2728.00 456.5 / 456.5 Output Total 1500 / 1500 2225 / 2525 1030 / 1030 Balance 1516 / 1516 391.00 / 203.00 -573.5 / -573.5 Lab / Micro Data Result Diagrams: 08/18/22 05:36 08/25/22 05:39 Labs: Laboratory Results - last 24 hr 08/18/22 05:36: WBC 6.9, RBC 3.37 L, Hgb 8.4 L, Hct 28.9 L, MCV 85.8, MCH 24.9 L, MCHC 29.1 L, RDW Std Deviation 52.4 H, RDW Coeff of Ghassan 16.9 H, Plt Count 238, MPV 11.7, Immature Gran % (Auto) 0.400, Neut % (Auto) 64.3, Lymph % (Auto) 19.6, [place] % (Auto) 9.4, Eos % (Auto) 5.7 H, Baso % (Auto) 0.6, Absolute Neuts (auto) 4.4, Absolute Lymphs (auto) 1.35, Nucleated RBC % 0, ESR 55 H 08/18/22 05:36: Sodium 141, Potassium 4.0, Chloride 109 H, Carbon Dioxide 27.0, Anion Gap 5, BUN 16, Creatinine 0.80, Estim Creat Clear Calc 120.30, Est GFR (MDRD) Af Amer 127, Est GFR (MDRD) Non-Af 105, BUN/Creatinine Ratio 19.9, Glucose 95, Calcium 9.3, Total Creatine Kinase 37 L, C-React Prot Ext Range 61.90 H Micro: Microbiology 07/24/22 18:35 Stool Stool Occult Blood (MARIA T) - Final Occult Blood Positive Physical Exam Const alert, no apparent distress and well nourished General Appearance: cooperative HEENT moist oral mucous membranes HEENT Narrative: No thrush Resp normal respiratory effort, no use of accessory muscles and clear to auscultation bilaterally Effort and Inspection: Negative for tachypneic or labored Auscultation: diminished lung sounds Cardio regular rate, regular rhythm, no murmurs and no gallops GI normal to inspection, nondistended, normoactive bowel sounds, non-tender and non-distended GI Narrative: no guarding with palpation Extremity Negative for no calf tenderness General Extremity: Negative for edema Skin General Skin Exam: no breakdown Rashes: no rashes Wound Narrative: Has a few punctate spots of blood on his back where he scratched. I reminded him that he is on an anticoagulant and he will bleed more easily while on the anticoagulant. 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 Continue therapy 2. Plan discharge for 08/26/2022. Echocardiogram 4 08/27/2022 and the charge nurse is making an appointment with Dr. Christensen to follow-up for results of the echocardiogram, PFO and aortic valve endocarditis. 3. I will give him the information for the [facility] and have him ask his primary care doctor for referral if needed. 4. I recommended he see a handicapper harness racing for an eye exam since he has been on Plaquenil and has not had an eye exam. 5. He has received 700 mg of intravenous iron. Will add an oral iron supplement with vitamin C. Bone marrow may be suppressed by chronic infection and that is possibly why the hemoglobin is not improving. Hemoglobin is stable. Charges/Coding Visit Charges Inpatient E&M: 78356 Subs Hosp L2
[2022-08-18 15:36] VITALS: BMI 40.6
[2022-08-18 19:11] VITALS: BP 151/54; PULSE 84; RESP 18; TEMP 36.7; O2SAT 95
[2022-08-18] MEDS: Acetaminophen 500 MG Tablet 1000 MG PO (19:41)
[2022-08-18 20:10] VITALS: BMI 40.6
[2022-08-18] MEDS: Menthol/Lanolin/Calamine/Znox 113 GM Tube 1 APPLIC TOPICAL (21:26)
[2022-08-18] MEDS: Nystatin Powder 15gm Bottle 1 APPLIC TOPICAL (21:26)
[2022-08-18] MEDS: 0.9% Saline Lock 10 ML Syringe IV (21:27)
[2022-08-18] MEDS: Senna/Docusate Sodium 1 Tablet PO (21:29)
[2022-08-18] MEDS: Atorvastatin Calcium 40 MG Tablet PO (21:29)
[2022-08-18 22:00] VITALS: PULSE 83; RESP 16; O2SAT 96
[2022-08-19] MEDS: Baclofen 10 MG Tablet 5 MG PO ×3 (05:40→22:25)
[2022-08-19] MEDS: Arthritis Pain Compound 60 CLICK TUBE TOPICAL ×3 (05:43→20:19)
[2022-08-19] MEDS: oxyCODONE 5 MG Tablet 10 MG PO ×2 (05:50→18:15)
[2022-08-19 06:00] VITALS: BMI 40.7
[2022-08-19] MEDS: Aspirin E.C. 81 MG Tablet PO (08:29)
[2022-08-19] MEDS: Allopurinol 100 MG Tablet PO (08:29)
[2022-08-19] MEDS: Allopurinol 300 MG Tablet PO (08:29)
[2022-08-19] MEDS: APIXABAN 5 MG TABLET PO ×2 (08:29→22:25)
[2022-08-19] MEDS: Hydroxychloroquine 200 MG Tablet PO ×2 (08:30→22:26)
[2022-08-19] MEDS: Pantoprazole Sodium 40 MG Tablet PO (08:30)
[2022-08-19] MEDS: amLODIPine 10 MG Tablet PO (08:30)
[2022-08-19] MEDS: Clopidogrel Bisulfate 75 MG Tablet PO (08:30)
[2022-08-19] MEDS: Doxycycline 100 MG CAPSULE PO ×2 (08:30→22:25)
[2022-08-19] MEDS: Ascorbic Acid 500 MG Tablet 1000 MG PO (08:30)
[2022-08-19] MEDS: Venlafaxine XR 75 MG Capsule 150 MG PO (08:30)
[2022-08-19] MEDS: Lisinopril 20 MG Tablet PO (08:30)
[2022-08-19] MEDS: Senna/Docusate Sodium 1 Tablet PO (08:31)
[2022-08-19] MEDS: Fenofibrate 48 MG Tablet PO (08:31)
[2022-08-19] MEDS: Folic Acid 1 MG Tablet PO (08:31)
[2022-08-19] MEDS: Gabapentin 100 MG Capsule 200 MG PO ×2 (08:31→17:00)
[2022-08-19 10:00] VITALS: BP 153/48; PULSE 79; RESP 17; TEMP 37.2; O2SAT 95
[2022-08-19] MEDS: oxyCODONE HCl Cr 10 MG Tablet PO ×2 (11:25→22:25)
[2022-08-19] MEDS: Ferrous Sulfate 325 MG Tablet PO (12:11)
[2022-08-19 14:55] VITALS: BMI 40.7
[2022-08-19 19:55] VITALS: BP 126/51; PULSE 78; RESP 18; TEMP 36.4; O2SAT 96
[2022-08-19] MEDS: Nystatin Powder 15gm Bottle 1 APPLIC TOPICAL (20:20)
[2022-08-19] MEDS: Menthol/Lanolin/Calamine/Znox 113 GM Tube 1 APPLIC TOPICAL (20:20)
[2022-08-19 20:30] VITALS: BMI 40.7
[2022-08-19] MEDS: Atorvastatin Calcium 40 MG Tablet PO (22:26)
[2022-08-20] MEDS: Arthritis Pain Compound 60 CLICK TUBE TOPICAL ×2 (05:53→21:06)
[2022-08-20] MEDS: oxyCODONE 5 MG Tablet 10 MG PO (05:54)
[2022-08-20] MEDS: Baclofen 10 MG Tablet 5 MG PO ×3 (05:56→21:07)
[2022-08-20 06:07] VITALS: BMI 40.8
[2022-08-20 07:37] VITALS: BP 154/59; PULSE 86; RESP 18; TEMP 36.7; O2SAT 92
[2022-08-20] MEDS: Gabapentin 100 MG Capsule 200 MG PO ×2 (07:57→17:16)
[2022-08-20] MEDS: Fenofibrate 48 MG Tablet PO (07:58)
[2022-08-20] MEDS: Clopidogrel Bisulfate 75 MG Tablet PO (07:58)
[2022-08-20] MEDS: Aspirin E.C. 81 MG Tablet PO (07:58)
[2022-08-20] MEDS: Venlafaxine XR 75 MG Capsule 150 MG PO (07:58)
[2022-08-20] MEDS: amLODIPine 10 MG Tablet PO (07:59)
[2022-08-20] MEDS: APIXABAN 5 MG TABLET PO ×2 (08:00→21:07)
[2022-08-20] MEDS: Folic Acid 1 MG Tablet PO (08:00)
[2022-08-20] MEDS: Hydroxychloroquine 200 MG Tablet PO ×2 (08:01→21:07)
[2022-08-20] MEDS: Allopurinol 100 MG Tablet PO (08:01)
[2022-08-20] MEDS: Lisinopril 20 MG Tablet PO (08:01)
[2022-08-20] MEDS: Allopurinol 300 MG Tablet PO (08:02)
[2022-08-20] MEDS: Pantoprazole Sodium 40 MG Tablet PO (08:02)
[2022-08-20] MEDS: Doxycycline 100 MG CAPSULE PO ×2 (09:58→21:07)
[2022-08-20] MEDS: oxyCODONE HCl Cr 10 MG Tablet PO ×2 (09:58→21:07)
--- NOTE | 2022-08-20 10:12 | PN_ITS ---
Subjective Subjective Afebrile VSS - systolic BP's are still more often than not mildly elevated. Maintaining appropriate oxygen saturation on RA Oral intake is good Discussed with nursing - no problems that need addressed Reviewed the PT/OT/ST notes Medication list reviewed. Denies fever, night sweats, shortness of breath, chest pain, palpitations, lightheadedness, cephalgia, dysuria and calf pain. Also denies diarrhea, sore mouth and painful swallowing. Objective Data Objective Data Vital Signs: Vital Signs Temp Pulse Resp BP Pulse Ox O2 Del Method O2 Flow Rate 98.0 F 86 18 154/59 H 92 Room Air 2 08/20/22 07:37 08/20/22 07:37 08/20/22 07:37 08/20/22 07:37 08/20/22 07:37 08/20/22 07:37 08/17/22 07:20 Oxygen Flow Rate (L/min) 2 Oxygen Delivery Method Room Air Weight: 328 lb 7.82 oz Body Mass Index (BMI) 40.8 Intake & Output: Intake and Output for Last 24 Hours 08/18/22 08/19/22 08/20/22 23:59 23:59 23:59 Intake Total 2258.0 / 2508.0 1364 / 1364 664 / 664 Output Total 1880 / 2080 1400 / 1400 400 / 400 Balance 378.0 / 428.0 -36 / -36 264 / 264 Lab / Micro Data Result Diagrams: 08/18/22 05:36 08/25/22 05:39 Micro: Microbiology 07/24/22 18:35 Stool Stool Occult Blood (MARIA T) - Final Occult Blood Positive Physical Exam Const alert and no apparent distress General Appearance: cooperative HEENT moist oral mucous membranes HEENT Narrative: No evidence of thrush Resp normal respiratory effort, no use of accessory muscles and clear to auscultation bilaterally Resp Narrative: Diminished breath sounds Effort and Inspection: Negative for tachypneic or labored Cardio regular rate, regular rhythm, no murmurs, no rub and no gallops GI normal to inspection, nondistended, normoactive bowel sounds, non-tender and non-distended GI Narrative: no guarding with palpation Extremity Negative for no calf tenderness General Extremity: Negative for edema Skin General Skin Exam: no breakdown Rashes: no rashes Psych affect normal Assessment & Plan Assessment/Plan (1) Physical debility: (2) Stroke/cerebrovascular accident: (3) PFO (patent foramen ovale): (4) SAH (subarachnoid hemorrhage): (5) Aortic valve vegetation: (6) Endocarditis: (7) Severe aortic valve regurgitation: (8) DVT of lower limb, acute: (9) Presence of arterial stent: (10) Normocytic hypochromic anemia: (11) Rheumatoid arthritis: (12) Hyperuricemia: (13) Gout: (14) Hypertension: (15) Abnormal LFTs: (16) CATHY (obstructive sleep apnea): (17) Chronic back pain: (18) 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 Continue therapy 2. Home next Wednesday. 3. Discontinue clopidogrel 4. Increase the Lisinopril to 30 mg daily and give an extra 10 mg now. 5. Will follow up with Dr. Zane Laurent in [place] for infectious disease. Charges/Coding Visit Charges Inpatient E&M: 31401 Subs Hosp L2
--- NOTE | 2022-08-20 10:29 | PCM.PN.ID ---
Physical Exam Narrative Feeling well, no fever, no body aches, no n/v/d. Const alert and no apparent distress General Appearance: cooperative Resp normal air movement and clear to auscultation bilaterally Cardio regular rate and regular rhythm GI soft to palpation, non-tender and non-distended Skin no rashes or lesions noted ID ID: Route of nutrition/ use of supplements: [] Nutritional Intake: [] IV Site: [] Underwood Catheter: [] Assessment & Plan Assessment/Plan (1) Aortic valve vegetation: (2) Stroke/cerebrovascular accident: (3) Endocarditis: PLAN: Reviewed records from [place] [facility]. ID was Dr. Zane Morgan. Bcxs neg. Neg for bartonella or coxiella. Chlamydia pneumoniae IgG strongly (+) at 1:512, but IgM neg. Given how high the titer is and otherwise negative workup, will cont dapto/unasyn with stop date 08/25/22, and 07/29 added doxycycline. 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 Covered by unasyn. Recommend him be discharged on one month po bactrim DS 1 tab bid with followup with Dr. Morgan prior to stopping abx. Would need bmp after one week of bactrim. Will follow, d/w Dr. Plata
[2022-08-20 11:18] VITALS: BMI 40.8
[2022-08-20] MEDS: Ascorbic Acid 500 MG Tablet 1000 MG PO (11:43)
[2022-08-20] MEDS: Lisinopril 10 MG Tablet PO (11:43)
[2022-08-20] MEDS: Ferrous Sulfate 325 MG Tablet PO (11:43)
[2022-08-20 20:01] VITALS: BP 140/59; PULSE 81; RESP 16; TEMP 36.6; O2SAT 93
[2022-08-20] MEDS: Nystatin Powder 15gm Bottle 1 APPLIC TOPICAL (20:58)
[2022-08-20] MEDS: Menthol/Lanolin/Calamine/Znox 113 GM Tube 1 APPLIC TOPICAL (20:58)
[2022-08-20] MEDS: Senna/Docusate Sodium 1 Tablet PO (21:08)
[2022-08-20] MEDS: Atorvastatin Calcium 40 MG Tablet PO (21:09)
[2022-08-20 21:10] VITALS: BMI 40.8
[2022-08-21] MEDS: oxyCODONE 5 MG Tablet 10 MG PO ×2 (05:48→12:38)
[2022-08-21] MEDS: Arthritis Pain Compound 60 CLICK TUBE TOPICAL ×3 (05:48→21:06)
[2022-08-21] MEDS: Baclofen 10 MG Tablet 5 MG PO ×3 (05:49→21:08)
[2022-08-21 06:00] VITALS: BMI 40.8
[2022-08-21] MEDS: Gabapentin 100 MG Capsule 200 MG PO ×2 (08:09→16:32)
[2022-08-21] MEDS: Lisinopril 20 MG Tablet 30 MG PO (08:10)
[2022-08-21] MEDS: Venlafaxine XR 75 MG Capsule 150 MG PO (08:11)
[2022-08-21] MEDS: Pantoprazole Sodium 40 MG Tablet PO (08:12)
[2022-08-21] MEDS: Folic Acid 1 MG Tablet PO (08:12)
[2022-08-21] MEDS: Hydroxychloroquine 200 MG Tablet PO ×2 (08:12→21:09)
[2022-08-21] MEDS: Fenofibrate 48 MG Tablet PO (08:12)
[2022-08-21] MEDS: Allopurinol 300 MG Tablet PO (08:12)
[2022-08-21 08:13] VITALS: BP 140/54; PULSE 84; RESP 18; TEMP 37.1; O2SAT 94
[2022-08-21] MEDS: Senna/Docusate Sodium 1 Tablet PO ×2 (08:13→21:09)
[2022-08-21] MEDS: APIXABAN 5 MG TABLET PO ×2 (08:13→21:07)
[2022-08-21] MEDS: amLODIPine 10 MG Tablet PO (08:14)
[2022-08-21] MEDS: Doxycycline 100 MG CAPSULE PO ×2 (08:14→21:06)
[2022-08-21] MEDS: Allopurinol 100 MG Tablet PO (08:14)
[2022-08-21] MEDS: Aspirin E.C. 81 MG Tablet PO (08:15)
[2022-08-21] MEDS: Polyethylene Glycol 3350 17 GM PACKET PO (08:15)
[2022-08-21] MEDS: oxyCODONE HCl Cr 10 MG Tablet PO ×2 (08:23→21:16)
[2022-08-21 08:25] VITALS: O2SAT 96
[2022-08-21 08:29] VITALS: RESP 18
[2022-08-21] MEDS: Ferrous Sulfate 325 MG Tablet PO (12:29)
[2022-08-21] MEDS: Ascorbic Acid 500 MG Tablet 1000 MG PO (12:29)
[2022-08-21 16:37] VITALS: BMI 40.8
[2022-08-21] MEDS: Atorvastatin Calcium 40 MG Tablet PO (21:08)
[2022-08-21] MEDS: Nystatin Powder 15gm Bottle 1 APPLIC TOPICAL (21:17)
[2022-08-21] MEDS: Menthol/Lanolin/Calamine/Znox 113 GM Tube 1 APPLIC TOPICAL (21:17)
[2022-08-21 21:30] VITALS: BP 130/55; PULSE 82; RESP 18; TEMP 37.2; O2SAT 93
[2022-08-22 05:00] VITALS: BMI 40.8
[2022-08-22] MEDS: oxyCODONE 5 MG Tablet 10 MG PO ×2 (05:49→18:39)
[2022-08-22] MEDS: Arthritis Pain Compound 60 CLICK TUBE TOPICAL ×3 (05:50→21:38)
[2022-08-22] MEDS: Baclofen 10 MG Tablet 5 MG PO ×3 (05:50→21:41)
[2022-08-22 06:00] VITALS: BMI 40.8
[2022-08-22 07:40] VITALS: BP 115/45; PULSE 84; RESP 18; TEMP 36.6; O2SAT 96
[2022-08-22] MEDS: Venlafaxine XR 75 MG Capsule 150 MG PO (08:54)
[2022-08-22] MEDS: Doxycycline 100 MG CAPSULE PO ×2 (08:54→21:40)
[2022-08-22] MEDS: Aspirin E.C. 81 MG Tablet PO (08:54)
[2022-08-22] MEDS: Folic Acid 1 MG Tablet PO (08:54)
[2022-08-22] MEDS: Gabapentin 100 MG Capsule 200 MG PO ×2 (08:54→17:43)
[2022-08-22] MEDS: Fenofibrate 48 MG Tablet PO (08:54)
[2022-08-22] MEDS: amLODIPine 10 MG Tablet PO (08:55)
[2022-08-22] MEDS: APIXABAN 5 MG TABLET PO ×2 (08:55→21:40)
[2022-08-22] MEDS: Hydroxychloroquine 200 MG Tablet PO ×2 (08:55→21:41)
[2022-08-22] MEDS: Pantoprazole Sodium 40 MG Tablet PO (08:55)
[2022-08-22] MEDS: Allopurinol 100 MG Tablet PO (08:56)
[2022-08-22] MEDS: Lisinopril 20 MG Tablet 30 MG PO (08:56)
[2022-08-22] MEDS: Allopurinol 300 MG Tablet PO (08:56)
[2022-08-22 09:00] VITALS: O2SAT 96
[2022-08-22] MEDS: oxyCODONE HCl Cr 10 MG Tablet PO ×2 (10:12→21:46)
[2022-08-22] MEDS: Ferrous Sulfate 325 MG Tablet PO (11:47)
[2022-08-22] MEDS: Ascorbic Acid 500 MG Tablet 1000 MG PO (11:47)
[2022-08-22 13:35] VITALS: BMI 40.8
[2022-08-22] MEDS: 0.9% Saline Lock 10 ML Syringe IV ×3 (14:06→21:46)
[2022-08-22 21:31] VITALS: BP 142/53; PULSE 80; RESP 18; TEMP 37.2; O2SAT 97
[2022-08-22] MEDS: Atorvastatin Calcium 40 MG Tablet PO (21:41)
[2022-08-23 02:09] VITALS: BMI 40.8
[2022-08-23 06:00] VITALS: BMI 40.4
[2022-08-23] MEDS: oxyCODONE 5 MG Tablet 10 MG PO (06:06)
[2022-08-23] MEDS: Baclofen 10 MG Tablet 5 MG PO ×3 (06:06→20:58)
[2022-08-23] MEDS: Arthritis Pain Compound 60 CLICK TUBE TOPICAL (06:07)
[2022-08-23] MEDS: Acetaminophen 500 MG Tablet 1000 MG PO ×2 (07:44→15:42)
[2022-08-23] MEDS: Allopurinol 100 MG Tablet PO (07:45)
[2022-08-23] MEDS: Folic Acid 1 MG Tablet PO (07:45)
[2022-08-23] MEDS: Allopurinol 300 MG Tablet PO (07:45)
[2022-08-23] MEDS: Pantoprazole Sodium 40 MG Tablet PO (07:46)
[2022-08-23] MEDS: Aspirin E.C. 81 MG Tablet PO (07:46)
[2022-08-23] MEDS: Senna/Docusate Sodium 1 Tablet PO ×2 (07:47→20:59)
[2022-08-23] MEDS: Lisinopril 20 MG Tablet 30 MG PO (07:48)
[2022-08-23] MEDS: APIXABAN 5 MG TABLET PO ×2 (07:49→21:00)
[2022-08-23] MEDS: Hydroxychloroquine 200 MG Tablet PO ×2 (07:49→20:59)
[2022-08-23 08:24] VITALS: BP 136/53; PULSE 84; RESP 20; TEMP 37; O2SAT 93
[2022-08-23] MEDS: Doxycycline 100 MG CAPSULE PO ×2 (08:50→21:00)
[2022-08-23] MEDS: amLODIPine 10 MG Tablet PO (08:50)
[2022-08-23] MEDS: Venlafaxine XR 75 MG Capsule 150 MG PO (08:50)
[2022-08-23] MEDS: Fenofibrate 48 MG Tablet PO (08:50)
[2022-08-23] MEDS: Gabapentin 100 MG Capsule 200 MG PO ×2 (08:50→16:31)
[2022-08-23] MEDS: oxyCODONE HCl Cr 10 MG Tablet PO ×2 (10:34→21:03)
[2022-08-23] MEDS: Ascorbic Acid 500 MG Tablet 1000 MG PO (11:46)
[2022-08-23] MEDS: Ferrous Sulfate 325 MG Tablet PO (11:46)
[2022-08-23 12:55] VITALS: BMI 40.4
[2022-08-23] MEDS: 0.9% Saline Lock 10 ML Syringe IV ×2 (16:34→22:05)
[2022-08-23 19:40] VITALS: BP 137/53; PULSE 78; RESP 17; TEMP 36.7; O2SAT 97
[2022-08-23] MEDS: Atorvastatin Calcium 40 MG Tablet PO (21:00)
[2022-08-23] MEDS: Menthol/Lanolin/Calamine/Znox 113 GM Tube 1 APPLIC TOPICAL (21:08)
[2022-08-23] MEDS: Nystatin Powder 15gm Bottle 1 APPLIC TOPICAL (21:09)
[2022-08-23 21:36] VITALS: O2SAT 97
[2022-08-24] MEDS: Baclofen 10 MG Tablet 5 MG PO ×3 (04:32→21:30)
[2022-08-24] MEDS: oxyCODONE 5 MG Tablet 10 MG PO (04:32)
[2022-08-24 06:00] VITALS: BMI 40.3
[2022-08-24 07:36] VITALS: BP 93/57; PULSE 86; RESP 16; TEMP 36.7; O2SAT 93
[2022-08-24] MEDS: Folic Acid 1 MG Tablet PO (07:36)
[2022-08-24] MEDS: Fenofibrate 48 MG Tablet PO (07:36)
[2022-08-24] MEDS: Pantoprazole Sodium 40 MG Tablet PO (07:36)
[2022-08-24] MEDS: Allopurinol 100 MG Tablet PO (07:36)
[2022-08-24] MEDS: Aspirin E.C. 81 MG Tablet PO (07:36)
[2022-08-24] MEDS: amLODIPine 10 MG Tablet PO (07:36)
[2022-08-24] MEDS: Gabapentin 100 MG Capsule 200 MG PO ×2 (07:37→17:27)
[2022-08-24] MEDS: Senna/Docusate Sodium 1 Tablet PO (07:38)
[2022-08-24] MEDS: Allopurinol 300 MG Tablet PO (07:39)
[2022-08-24] MEDS: Acetaminophen 500 MG Tablet 1000 MG PO ×2 (08:13→17:35)
[2022-08-24] MEDS: APIXABAN 5 MG TABLET PO ×2 (10:12→21:32)
[2022-08-24] MEDS: Doxycycline 100 MG CAPSULE PO ×2 (10:12→21:31)
[2022-08-24] MEDS: Lisinopril 20 MG Tablet 30 MG PO (10:12)
[2022-08-24] MEDS: oxyCODONE HCl Cr 10 MG Tablet PO ×2 (10:12→21:30)
[2022-08-24] MEDS: Venlafaxine XR 75 MG Capsule 150 MG PO (10:14)
[2022-08-24] MEDS: Hydroxychloroquine 200 MG Tablet PO ×2 (10:15→21:31)
[2022-08-24 10:19] VITALS: BMI 40.3
--- NOTE | 2022-08-24 12:01 | PN_ITS ---
Subjective Subjective Al was seen on team rounds today. Afebrile VSS - BP recorded as 93/57 today........this is very out of the ordinary? Heart rate is within normal limits. No recent changes to the antihypertensive regimen. Maintaining appropriate oxygen saturation on RA Oral intake has been good. Very good fluid intake. Discussed with nursing - no problems that need addressed Reviewed the PT/OT/ST notes Medication list reviewed. Al denies lightheadedness, vertigo, CP, SOB at rest, SOB with exertion, cough, nausea, vomiting, abd pain, diarrhea, constipation, dysuria, calf pain and ankle swelling. No night sweats and no shaking chills. Denies pain in the mouth or painful swallowing. No diarrhea. Objective Data Objective Data Vital Signs: Vital Signs Temp Pulse Resp BP Pulse Ox O2 Del Method O2 Flow Rate 98.1 F 86 16 93/57 L 93 Room Air 2 08/24/22 07:36 08/24/22 07:36 08/24/22 07:36 08/24/22 07:36 08/24/22 07:36 08/24/22 07:36 08/17/22 07:20 Oxygen Flow Rate (L/min) 2 Oxygen Delivery Method Room Air Weight: 324 lb 3.2 oz Body Mass Index (BMI) 40.3 Intake & Output: Intake and Output for Last 24 Hours 08/22/22 08/23/22 08/24/22 23:59 23:59 23:59 Intake Total 1318.00 / 1318.00 2548.25 / 2548.25 704 / 704 Output Total 1150 / 1150 2150 / 2150 1900 / 1900 Balance 168.00 / 168.00 398.25 / 398.25 -1196 / -1196 Lab / Micro Data Result Diagrams: 08/18/22 05:36 08/18/22 05:36 Micro: Microbiology 07/24/22 18:35 Stool Stool Occult Blood (MARIA T) - Final Occult Blood Positive Physical Exam Const alert and oriented x3 General Appearance: cooperative Resp clear to auscultation bilaterally Cardio regular rate, regular rhythm and no gallops GI normal to inspection, nondistended, normoactive bowel sounds, soft to palpation and non-tender Extremity no calf tenderness Extremity Narrative: SINAN wraps for compression are in place. General Extremity: Negative for edema Skin General Skin Exam: no breakdown Rashes: no rashes Psych cooperative and affect normal Appearance: appropriate Assessment & Plan Assessment/Plan (1) Physical debility: (2) Stroke/cerebrovascular accident: (3) PFO (patent foramen ovale): (4) SAH (subarachnoid hemorrhage): (5) Aortic valve vegetation: (6) Endocarditis: (7) Severe aortic valve regurgitation: (8) DVT of lower limb, acute: (9) Presence of arterial stent: (10) Normocytic hypochromic anemia: (11) Rheumatoid arthritis: (12) Hyperuricemia: (13) Gout: (14) Hypertension: (15) Abnormal LFTs: (16) CATHY (obstructive sleep apnea): (17) Chronic back pain: (18) 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 Continue therapy 2. Discharge planned for 08/26/2022. 3. Echocardiogram scheduled for 08/27/2022. 4. We will follow-up with Dr. Christensen from [facility] for cardiology care per pt request (rather than going to [facility]). Will need to have the PFO closed. 5. Needs follow up with neurology and PCP as well post DC and with Dr. Zane Morgan from [place]. 6. He has an appt with Dr. Donohue coming up. 7. Continue Eliquis for PFO and for DVT RLE. Needs to be on Eliquis at least until the PFO is closed and the DVT has resolved. Charges/Coding Visit Charges Inpatient E&M: 18238 Subs Hosp L2
[2022-08-24] MEDS: Ferrous Sulfate 325 MG Tablet PO (12:13)
[2022-08-24] MEDS: Ascorbic Acid 500 MG Tablet 1000 MG PO (12:13)
--- NOTE | 2022-08-24 12:36 | CASEMGMT ---
Social Work IDT met with patient and for Team meeting. Discussed patient's progress in PT/OT/SN. Confirmed pt's DC home 08/26. Therapy recommending tall wheeled walker for DC. SW has PT scheduled through [facility]. SW inquired to [facility] about availability for walker. They do not. SW sent referral to [facility] via [facility]. Plan: DC home 08/26, [facility], tall wheeled walker TAHIR Shipman [employer]
[2022-08-24 13:00] VITALS: BP 138/48; PULSE 81
[2022-08-24] MEDS: 0.9% Saline Lock 10 ML Syringe IV (18:23)
[2022-08-24 20:18] VITALS: BP 140/62; PULSE 81; RESP 17; TEMP 36.7; O2SAT 96
[2022-08-24] MEDS: Nystatin Powder 15gm Bottle 1 APPLIC TOPICAL (20:50)
[2022-08-24] MEDS: Menthol/Lanolin/Calamine/Znox 113 GM Tube 1 APPLIC TOPICAL (20:50)
[2022-08-24 20:53] VITALS: BMI 40.3
[2022-08-24] MEDS: Atorvastatin Calcium 40 MG Tablet PO (21:31)
[2022-08-25] MEDS: Baclofen 10 MG Tablet 5 MG PO ×3 (05:49→21:19)
[2022-08-25] MEDS: oxyCODONE 5 MG Tablet 10 MG PO ×2 (05:51→17:35)
[2022-08-25 05:57] VITALS: BMI 40.3
[2022-08-25 06:14] LABS: Anion Gap 3 (5-15); BUN 11 mg/dL (7-18); BUN/Creat Ratio 12.6 RATIO (10-20); Calcium,Total 9.4 mg/dL (8.5-10.1); Chloride 109 mmol/L (98-107); Creatinine, Serum 0.87 mg/dL (0.70-1.30); EST Glomerular Filtration Rate 96 mL/min (>60); Est Glom Filt Rate - Afr Amer 116 mL/min (>60); Estimated Creatinine Clearance 110.62 ml/min; Glucose 89 mg/dL (74-106); Potassium 3.8 mmol/L (3.5-5.1); Sodium Level 139 mmol/L (136-145)
[2022-08-25 06:46] LABS: Erythrocyte Sedimentation Rate 51 mm/hr (0-20)
[2022-08-25] MEDS: Folic Acid 1 MG Tablet PO (07:55)
[2022-08-25] MEDS: Pantoprazole Sodium 40 MG Tablet PO (07:55)
[2022-08-25] MEDS: Fenofibrate 48 MG Tablet PO (07:55)
[2022-08-25] MEDS: Ferrous Sulfate 325 MG Tablet PO (07:55)
[2022-08-25] MEDS: Aspirin E.C. 81 MG Tablet PO (07:55)
[2022-08-25] MEDS: amLODIPine 10 MG Tablet PO (07:56)
[2022-08-25] MEDS: APIXABAN 5 MG TABLET PO ×2 (07:56→21:19)
[2022-08-25] MEDS: Lisinopril 20 MG Tablet 30 MG PO (07:56)
[2022-08-25] MEDS: Allopurinol 300 MG Tablet PO (07:56)
[2022-08-25] MEDS: Doxycycline 100 MG CAPSULE PO ×2 (07:56→21:18)
[2022-08-25] MEDS: Venlafaxine XR 75 MG Capsule 150 MG PO (07:57)
[2022-08-25] MEDS: Allopurinol 100 MG Tablet PO (07:57)
[2022-08-25] MEDS: Hydroxychloroquine 200 MG Tablet PO ×2 (07:58→21:18)
[2022-08-25] MEDS: Gabapentin 100 MG Capsule 200 MG PO ×2 (08:01→17:40)
[2022-08-25] MEDS: Senna/Docusate Sodium 1 Tablet PO ×2 (08:01→21:18)
[2022-08-25 09:41] VITALS: BP 124/52; PULSE 85; RESP 17; TEMP 36.8; O2SAT 93
[2022-08-25 09:53] VITALS: BMI 40.3
[2022-08-25] MEDS: oxyCODONE HCl Cr 10 MG Tablet PO ×2 (09:57→21:18)
[2022-08-25] MEDS: 0.9% Saline Lock 10 ML Syringe IV (11:38)
[2022-08-25] MEDS: Ascorbic Acid 500 MG Tablet 1000 MG PO (11:41)
--- NOTE | 2022-08-25 13:39 | PCM.PROGNOTE ---
Subjective Subjective Afebrile VSS Maintaining appropriate oxygen saturation on RA Oral intake is good Discussed with nursing - no problems that need addressed Reviewed the PT/OT/ST notes Medication list reviewed. He is on Oxycontin 10 mg Q12 H and Oxycodone 10 mg Q4H for breakthrough. He is taking the short acting Oxycodone usually 2 times a day. Lab done this AM was personally reviewed. The ESR is 51, down from 55 last week and 88 the preceding week. CRP is still elevated at 79.9 and this is actually up from 61.9 last week which was up from 43.8 the preceding week. BUN and creatinine are stable and electrolytes are within normal limits. Lab did not do the CK or the CBC and so I will order these now. Lab was faxed to Dr. Gerber from infectious disease who called and wants 2 more weeks of Unasyn and daptomycin. Al denies lightheadedness, vertigo, CP, SOB at rest, SOB with exertion, cough, nausea, vomiting, abd pain, diarrhea, constipation, dysuria, calf pain and ankle swelling. He continues to c/o back pain but, it is better with the Oxycontin added to the drug regimen and he is also less stiff in the morning. Objective Data Objective Data Vital Signs: Vital Signs Temp Pulse Resp BP Pulse Ox O2 Del Method O2 Flow Rate 98.2 F 85 17 124/52 H 93 Room Air 2 08/25/22 09:41 08/25/22 09:41 08/25/22 09:41 08/25/22 09:41 08/25/22 09:41 08/25/22 09:41 08/17/22 07:20 Oxygen Flow Rate (L/min) 2 Oxygen Delivery Method Room Air Weight: 324 lb 8.327 oz Body Mass Index (BMI) 40.3 Intake & Output: Intake and Output for Last 24 Hours 08/23/22 08/24/22 08/25/22 23:59 23:59 23:59 Intake Total 2548.25 / 2548.25 1885 / 1997 424 / 424 Output Total 2150 / 2150 2700 / 2700 500 / 500 Balance 398.25 / 398.25 -814 / -702 -76 / -76 Lab / Micro Data Result Diagrams: 08/25/22 05:39 08/25/22 05:39 Labs: Laboratory Results - last 24 hr 08/25/22 05:39: ESR 51 H 08/25/22 05:39: Sodium 139, Potassium 3.8, Chloride 109 H, Carbon Dioxide 27.0, Anion Gap 3 L, BUN 11, Creatinine 0.87, Estim Creat Clear Calc 110.62, Est GFR (MDRD) Af Amer 116, Est GFR (MDRD) Non-Af 96, BUN/Creatinine Ratio 12.6, Glucose 89, Calcium 9.4, C-React Prot Ext Range 79.90 H Micro: Microbiology 07/24/22 18:35 Stool Stool Occult Blood (MARIA T) - Final Occult Blood Positive Physical Exam Const alert and no apparent distress General Appearance: cooperative Resp normal respiratory effort and clear to auscultation bilaterally Auscultation: diminished lung sounds bilateral (suspect due to body habitus.) Cardio regular rate, regular rhythm, no murmurs and no gallops GI normal to inspection, nondistended, normoactive bowel sounds, soft to palpation and non-tender GI Narrative: no guarding with palpation Extremity Negative for no calf tenderness Extremity Narrative: SINAN wraps for compression are in place. 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 Continue therapy 2. Discussed with the case management social worker and nurse bus and sys integration senior manager and will check with insurance to see if he is able to remain on rehab or will need to be downgraded for the 2 additional weeks of antibiotics. 3. Continue daptomycin and Unasyn 4. Continue weekly labs on Mondays and fax to ID. Charges/Coding Visit Charges Inpatient E&M: 38147 Subs Hosp L2
[2022-08-25 14:31] LABS: CPK Total, Creatine Kinase 40 U/L (39-308)
[2022-08-25 14:37] LABS: Absolute Lymphocyte Count 1.15 X10^3/uL (0.83-4.51); Basophil# 0.03 X10^3/uL; Basophil% 0.4 % (0-1); Eosinophil# 0.32 X10^3/uL; Eosinophils% 4.5 % (0-5); Hematocrit 28.1 % (40-54); Hemoglobin 8.2 g/dL (13.0-16.5); Lymphocyte # 1.15 X10^3/ul (0.83-4.51); Lymphocyte % 16.1 % (19-41); Mean Corp Hgb Conc 29.2 g/dL (32-36); Mean Corpuscular Hgb 24.5 pg (27.0-32.0); Mean Corpuscular Volume 83.9 fL (80-94); Mean Platelet Vol. 12.3 fl (6.2-12.0); Monocyte# 0.65 X10^3/uL; Monocyte% 9.1 % (0-10); NRBC Flagged by Analyzer 0 % (0-5); Neutrophil # 4.97 X10^3/uL (2.7-7.7); Neutrophil % 69.5 % (47-70); Platelet Count 293 K/mm3 (150-450); RBC Distribution Width CV 16.9 % (11.6-14.6); RBC Distribution Width SD 51.8 fl (35.1-43.9); Red Blood Count 3.35 M/mm3 (4.6-6.2); White Blood Count 7.2 K/mm3 (4.4-11.0)
--- NOTE | 2022-08-25 15:09 | NURSING ---
Weekly labs faxed to Dr. Morgan
--- NOTE | 2022-08-25 15:30 | CASEMGMT ---
Social Work Notified by nursing that ID extended IV ATB to 09/09. SW collaborated with IDT to determine insurance has approved through 08/27 - THREAD DRAWER will be completed on that date with updated information on extension of IV ATB, and if approved, pt can remain on RU. If not, pt will transfer to a SNF. MACHELLE phoned pt and to update. Pt agreeable to plan. Will continue to follow. Samaria Ellington, RESIDENCE LIFE DIRECTOR SUPERVISOR [employer]
[2022-08-25 20:00] VITALS: BP 134/57; PULSE 83; RESP 18; TEMP 36.8; O2SAT 94
[2022-08-25] MEDS: Nystatin Powder 15gm Bottle 1 APPLIC TOPICAL (21:15)
[2022-08-25] MEDS: Menthol/Lanolin/Calamine/Znox 113 GM Tube 1 APPLIC TOPICAL (21:15)
[2022-08-25] MEDS: Atorvastatin Calcium 40 MG Tablet PO (21:19)
[2022-08-25 21:22] VITALS: BMI 40.3
[2022-08-26 05:13] VITALS: BMI 40.2
[2022-08-26] MEDS: Baclofen 10 MG Tablet 5 MG PO ×3 (05:14→21:21)
[2022-08-26] MEDS: oxyCODONE 5 MG Tablet 10 MG PO ×2 (05:14→14:44)
[2022-08-26 07:30] VITALS: BP 138/58; PULSE 87; RESP 16; TEMP 36.7; O2SAT 94
[2022-08-26] MEDS: Lisinopril 20 MG Tablet 30 MG PO (08:02)
[2022-08-26] MEDS: Senna/Docusate Sodium 1 Tablet PO ×2 (08:03→21:22)
[2022-08-26] MEDS: Folic Acid 1 MG Tablet PO (08:03)
[2022-08-26] MEDS: amLODIPine 10 MG Tablet PO (08:03)
[2022-08-26] MEDS: Aspirin E.C. 81 MG Tablet PO (08:03)
[2022-08-26] MEDS: Hydroxychloroquine 200 MG Tablet PO ×2 (08:03→21:21)
[2022-08-26] MEDS: Pantoprazole Sodium 40 MG Tablet PO (08:03)
[2022-08-26] MEDS: Allopurinol 100 MG Tablet PO (08:03)
[2022-08-26] MEDS: Allopurinol 300 MG Tablet PO (08:03)
[2022-08-26] MEDS: APIXABAN 5 MG TABLET PO ×2 (08:03→21:21)
[2022-08-26] MEDS: Venlafaxine XR 75 MG Capsule 150 MG PO (08:03)
[2022-08-26] MEDS: Fenofibrate 48 MG Tablet PO (08:04)
[2022-08-26] MEDS: Doxycycline 100 MG CAPSULE PO ×2 (08:04→21:21)
[2022-08-26] MEDS: Gabapentin 100 MG Capsule 200 MG PO ×2 (08:07→17:09)
[2022-08-26] MEDS: 0.9% Saline Lock 10 ML Syringe IV (08:07)
[2022-08-26 09:18] VITALS: BMI 40.2
[2022-08-26] MEDS: oxyCODONE HCl Cr 10 MG Tablet PO ×2 (09:59→21:21)
[2022-08-26] MEDS: Ascorbic Acid 500 MG Tablet 1000 MG PO (12:02)
[2022-08-26] MEDS: Ferrous Sulfate 325 MG Tablet PO (12:03)
[2022-08-26] MEDS: Acetaminophen 500 MG Tablet 1000 MG PO (12:03)
--- NOTE | 2022-08-26 12:45 | CASEMGMT ---
Social Work SW updated pt that insurance approved through 09/09, with new EDC 09/10. Will continue to reteam. SW to continue looking for tall WW. Chris is not INN with insurance. Samaria Ellington, PACKAGE DESIGNER COPY AND PRINT ASSOCIATE
[2022-08-26 20:28] VITALS: BP 118/53; PULSE 78; RESP 18; TEMP 36.9; O2SAT 92
[2022-08-26 20:59] VITALS: BMI 40.2
[2022-08-26] MEDS: Atorvastatin Calcium 40 MG Tablet PO (21:21)
[2022-08-26] MEDS: Nystatin Powder 15gm Bottle 1 APPLIC TOPICAL (21:23)
[2022-08-26] MEDS: Menthol/Lanolin/Calamine/Znox 113 GM Tube 1 APPLIC TOPICAL (21:25)
[2022-08-26] MEDS: Albuterol 2.5 MG/3 ML VIAL.NEB. INHALATION (21:33)
[2022-08-26 21:34] VITALS: PULSE 80; RESP 18; O2SAT 91
[2022-08-27] MEDS: oxyCODONE 5 MG Tablet 10 MG PO ×2 (05:21→15:29)
[2022-08-27] MEDS: Baclofen 10 MG Tablet 5 MG PO ×3 (05:22→21:42)
[2022-08-27 05:33] VITALS: BMI 40.1
[2022-08-27 07:39] VITALS: BP 138/61; PULSE 87; RESP 17; TEMP 36.6; O2SAT 94
[2022-08-27] MEDS: Lisinopril 20 MG Tablet 30 MG PO (08:07)
[2022-08-27] MEDS: Fenofibrate 48 MG Tablet PO (08:08)
[2022-08-27] MEDS: Doxycycline 100 MG CAPSULE PO ×2 (08:08→21:42)
[2022-08-27] MEDS: Pantoprazole Sodium 40 MG Tablet PO (08:08)
[2022-08-27] MEDS: Hydroxychloroquine 200 MG Tablet PO ×2 (08:08→21:42)
[2022-08-27] MEDS: Aspirin E.C. 81 MG Tablet PO (08:08)
[2022-08-27] MEDS: APIXABAN 5 MG TABLET PO ×2 (08:08→21:42)
[2022-08-27] MEDS: Venlafaxine XR 75 MG Capsule 150 MG PO (08:08)
[2022-08-27] MEDS: Folic Acid 1 MG Tablet PO (08:08)
[2022-08-27] MEDS: Allopurinol 100 MG Tablet PO (08:08)
[2022-08-27] MEDS: amLODIPine 10 MG Tablet PO (08:08)
[2022-08-27] MEDS: Allopurinol 300 MG Tablet PO (08:09)
[2022-08-27] MEDS: Senna/Docusate Sodium 1 Tablet PO ×2 (08:10→21:43)
[2022-08-27] MEDS: Gabapentin 100 MG Capsule 200 MG PO ×2 (10:12→17:22)
[2022-08-27] MEDS: oxyCODONE HCl Cr 10 MG Tablet PO ×2 (10:13→21:42)
[2022-08-27] MEDS: Ascorbic Acid 500 MG Tablet 1000 MG PO (11:48)
[2022-08-27] MEDS: Ferrous Sulfate 325 MG Tablet PO (11:49)
[2022-08-27 13:49] VITALS: BMI 40.1
[2022-08-27] MEDS: Magnesium Hydroxide 30 ML UDC PO (15:11)
[2022-08-27] MEDS: Polyethylene Glycol 3350 17 GM PACKET PO (19:28)
[2022-08-27 19:32] VITALS: BP 132/58; PULSE 87; RESP 18; TEMP 37.2; O2SAT 93
[2022-08-27 19:33] VITALS: BMI 40.1
[2022-08-27] MEDS: Nystatin Powder 15gm Bottle 1 APPLIC TOPICAL (21:41)
[2022-08-27] MEDS: Atorvastatin Calcium 40 MG Tablet PO (21:42)
[2022-08-27] MEDS: Menthol/Lanolin/Calamine/Znox 113 GM Tube 1 APPLIC TOPICAL (21:43)
[2022-08-27 22:00] VITALS: PULSE 85; RESP 17
[2022-08-27] MEDS: 0.9% Saline Lock 10 ML Syringe IV (22:40)
[2022-08-28 06:00] VITALS: BMI 40.1
[2022-08-28] MEDS: oxyCODONE 5 MG Tablet 10 MG PO ×2 (06:02→12:42)
[2022-08-28] MEDS: Baclofen 10 MG Tablet 5 MG PO ×3 (06:04→22:15)
[2022-08-28 07:42] VITALS: BP 102/45; PULSE 81; RESP 16; TEMP 36.7; O2SAT 92
[2022-08-28] MEDS: APIXABAN 5 MG TABLET PO ×2 (08:31→22:16)
[2022-08-28] MEDS: Folic Acid 1 MG Tablet PO (08:31)
[2022-08-28] MEDS: Senna/Docusate Sodium 1 Tablet PO ×2 (08:36→22:15)
[2022-08-28] MEDS: Lisinopril 20 MG Tablet 30 MG PO (08:36)
[2022-08-28] MEDS: Hydroxychloroquine 200 MG Tablet PO ×2 (08:36→22:14)
[2022-08-28] MEDS: amLODIPine 10 MG Tablet PO (08:37)
[2022-08-28] MEDS: oxyCODONE HCl Cr 10 MG Tablet PO ×2 (08:37→22:18)
[2022-08-28] MEDS: Venlafaxine XR 75 MG Capsule 150 MG PO (08:37)
[2022-08-28] MEDS: Allopurinol 100 MG Tablet PO (08:37)
[2022-08-28] MEDS: Gabapentin 100 MG Capsule 200 MG PO (08:37)
[2022-08-28] MEDS: Polyethylene Glycol 3350 17 GM PACKET PO (08:37)
[2022-08-28] MEDS: Fenofibrate 48 MG Tablet PO (08:37)
[2022-08-28] MEDS: Doxycycline 100 MG CAPSULE PO ×2 (08:37→22:16)
[2022-08-28] MEDS: Aspirin E.C. 81 MG Tablet PO (08:37)
[2022-08-28] MEDS: Pantoprazole Sodium 40 MG Tablet PO (08:37)
[2022-08-28] MEDS: Allopurinol 300 MG Tablet PO (08:39)
[2022-08-28 08:45] VITALS: BP 128/64; PULSE 83
[2022-08-28] MEDS: Ascorbic Acid 500 MG Tablet 1000 MG PO (11:31)
[2022-08-28] MEDS: Ferrous Sulfate 325 MG Tablet PO (11:31)
[2022-08-28 12:40] VITALS: BMI 40.1
[2022-08-28] MEDS: Acetaminophen 500 MG Tablet 1000 MG PO (12:43)
--- NOTE | 2022-08-28 14:09 | PCM.PROGNOTE ---
Subjective Subjective Afebrile VSS-blood pressure is well controlled and the heart rate is within normal limits. Maintaining appropriate oxygen saturation on RA Oral intake is good Discussed with nursing - He is c/o a sore spot on the end of his toe. Reviewed the PT/OT/ST notes Medication list reviewed. Albaro was approved to stay in rehab for an additional 2 weeks for continued antibiotics for endocarditis. Today he is complaining of a sore spot on the end of the R great toe. He tells me that his shoes fit properly. He has a hx of gouty arthritis but, there is no erythema and no increased warmth to touch and it is not the joint it is the very tip of the toe Distal to the toenail. He thinks he may have a foreign body. Tells me that his back pain is worse today. He only takes the short acting oxycodone 1-2 times daily. Denies radiation of the pain into his legs and also denies paresthesias. He denies chest pain, palpitations, shortness of breath, hemoptysis, cough, nausea/vomiting/abdominal pain, dysuria and calf tenderness. The tylor wraps on the distal lower extremities are controlling the edema very well. Objective Data Objective Data Vital Signs: Vital Signs Temp Pulse Resp BP Pulse Ox O2 Del Method O2 Flow Rate 98.0 F 83 16 128/64 H 92 Room Air 2 08/28/22 07:42 08/28/22 08:45 08/28/22 07:42 08/28/22 08:45 08/28/22 07:42 08/28/22 07:42 08/17/22 07:20 Oxygen Flow Rate (L/min) 2 Oxygen Delivery Method Room Air Weight: 322 lb 15.635 oz Body Mass Index (BMI) 40.1 Intake & Output: Intake and Output for Last 24 Hours 08/26/22 08/27/22 08/28/22 23:59 23:59 23:59 Intake Total 1536 / 1648 2456 / 2456 1336 / 1336 Output Total 825 / 825 1500 / 1500 600 / 600 Balance 711 / 823 956 / 956 736 / 736 Lab / Micro Data Result Diagrams: 08/25/22 05:39 08/25/22 05:39 Micro: Microbiology 07/24/22 18:35 Stool Stool Occult Blood (MARIA T) - Final Occult Blood Positive Physical Exam Const alert and oriented x3 Constitutional Narrative: Lying flat in bed and just got as pain pill. Does not appear to be in distress. General Appearance: cooperative HEENT normocephalic, head/scalp atraumatic and moist oral mucous membranes Eyes PERRL and EOMs intact bilaterally Eyes Narrative: No scleral icterus, no conjunctival injection, no discharge from the eye, sclera is normal. Neck supple Neck Narrative: Thick short neck General: trachea midline Resp clear to auscultation bilaterally Resp Narrative: Diminished breath sounds Effort and Inspection: Negative for tachypneic or labored Auscultation: diminished lung sounds Cardio regular rate, regular rhythm and no gallops Cardio Narrative: I no longer hear the MM at the apex. GI normal to inspection, nondistended, normoactive bowel sounds, soft to palpation and non-tender GI Narrative: no guarding with palpation Extremity Negative for no calf tenderness Extremity Narrative: There is no erythema of the R foot and he denies joint pain. There is a dry spot at the end of the great toe with a callous. The center of the area is dark. He has pain with even light touch of this area. I can not feel a foreign body but, the callous is thick and I suspect it has been there for a while. General Extremity: Negative for edema Skin no jaundice General Skin Exam: no breakdown Rashes: no rashes Wound Narrative: Has a few punctate spots of blood on his back where he scratched. I reminded him that he is on an anticoagulant and he will bleed more easily while on the anticoagulant. Neuro Neuro Narrative: Trace Left facial droop. Speech: speech normal Psych cooperative Psych Narrative: Manan is cooperative, makes good eye contact, is sleeping well at night and has a good appetite. He feels encouraged by the progress that he is making in therapy and is no longer tearful. Appearance: appropriate Attitude: No agitated Assessment & Plan Assessment/Plan (1) Physical debility: (2) Stroke/cerebrovascular accident: (3) PFO (patent foramen ovale): (4) SAH (subarachnoid hemorrhage): (5) Aortic valve vegetation: (6) Endocarditis: (7) Severe aortic valve regurgitation: (8) DVT of lower limb, acute: (9) Chronic back pain: (10) 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 Continue therapy 2. Obtain a plain x-ray of the right great toe looking for a possible foreign body. If no foreign body will debride the callous and see what is under there. 3. Lab ordered for Wednesday. 4. the pain in the back seems to be getting worse. If the ESR and CRP remain elevated and the pain does not get back to baseline will likely need to image the LS spine to make sure he does not have vertebral osteo or discitis from bacteremic spread. Will do a plain XRAY today Charges/Coding Visit Charges Inpatient E&M: 49578 Subs Hosp L2
--- NOTE | 2022-08-28 15:40 | RAD_ITS ---
STUDY: X-RAY - LUMBAR SPINE REASON FOR EXAM: Male, 57 years old. pain in the low back TECHNIQUE: 5 view(s) of the lumbar spine were obtained. COMPARISON: None FINDINGS: Normal lumbar lordosis. There is no substantial scoliosis. There is a normal alignment of the vertebrae. There is mild multilevel endplate spondylosis of the lumbar vertebrae. Moderate loss of disc height at L3-L4. Mild loss of disc height at L4-L5 and L5-S1. There is no demonstrated fracture. An IVC filter is seen in typical location, otherwise soft tissue structures are unremarkable. RAD/L/S Spine Min 4 Views IMPRESSION: Degenerative changes. No acute abnormalities. Electronically Signed: Andrei Rojas MD at 17:15 EDT ,
--- NOTE | 2022-08-28 16:55 | RAD_ITS ---
STUDY: X-RAY RIGHT FOOT, FIRST TOE REASON FOR EXAM: Male, 57 years old. Pain at tip of R great toe. Possible foreign body TECHNIQUE: 4 view(s) of the toe were obtained. COMPARISON: None. FINDINGS: Normal visualized metatarsus. Normal metatarsophalangeal (M.T.P) joint. Normal interphalangeal joint. Normal phalanges. The soft tissue structures are unremarkable. RAD/Toe(s) Min 2 Views IMPRESSION: Normal x-ray of the great toe. Electronically Signed: Andrei Rojas MD at 17:14 EDT ,
[2022-08-28] MEDS: Gabapentin 300 MG Capsule PO (17:06)
[2022-08-28 20:40] VITALS: BP 133/52; PULSE 89; RESP 17; TEMP 37.1; O2SAT 94
[2022-08-28] MEDS: Atorvastatin Calcium 40 MG Tablet PO (22:16)
[2022-08-28] MEDS: Menthol/Lanolin/Calamine/Znox 113 GM Tube 1 APPLIC TOPICAL (22:19)
[2022-08-28] MEDS: Nystatin Powder 15gm Bottle 1 APPLIC TOPICAL (22:19)
[2022-08-29 06:00] VITALS: BMI 40.4
[2022-08-29] MEDS: Baclofen 10 MG Tablet 5 MG PO ×3 (06:27→21:26)
[2022-08-29] MEDS: oxyCODONE 5 MG Tablet 10 MG PO ×2 (06:28→14:46)
[2022-08-29 07:59] VITALS: BP 124/57; PULSE 93; RESP 18; TEMP 37.2; O2SAT 92
[2022-08-29] MEDS: Folic Acid 1 MG Tablet PO (08:30)
[2022-08-29] MEDS: Gabapentin 300 MG Capsule PO ×3 (08:30→17:46)
[2022-08-29] MEDS: Venlafaxine XR 75 MG Capsule 150 MG PO (08:30)
[2022-08-29] MEDS: APIXABAN 5 MG TABLET PO ×2 (08:30→21:24)
[2022-08-29] MEDS: Lisinopril 20 MG Tablet 30 MG PO (08:30)
[2022-08-29] MEDS: amLODIPine 10 MG Tablet PO (08:31)
[2022-08-29] MEDS: Hydroxychloroquine 200 MG Tablet PO ×2 (08:31→21:24)
[2022-08-29] MEDS: Aspirin E.C. 81 MG Tablet PO (08:31)
[2022-08-29] MEDS: Pantoprazole Sodium 40 MG Tablet PO (08:31)
[2022-08-29] MEDS: Allopurinol 300 MG Tablet PO (08:31)
[2022-08-29] MEDS: Doxycycline 100 MG CAPSULE PO ×2 (08:31→21:24)
[2022-08-29] MEDS: Fenofibrate 48 MG Tablet PO (08:32)
[2022-08-29] MEDS: Senna/Docusate Sodium 1 Tablet PO (08:33)
[2022-08-29] MEDS: Magnesium Hydroxide 30 ML UDC PO (08:36)
[2022-08-29] MEDS: Allopurinol 100 MG Tablet PO (08:55)
[2022-08-29 09:30] VITALS: BMI 40.1
[2022-08-29] MEDS: oxyCODONE HCl Cr 10 MG Tablet PO ×2 (09:50→21:24)
[2022-08-29] MEDS: 0.9% Saline Lock 10 ML Syringe IV ×2 (11:34→21:27)
[2022-08-29] MEDS: Ascorbic Acid 500 MG Tablet 1000 MG PO (11:34)
[2022-08-29] MEDS: Ferrous Sulfate 325 MG Tablet PO (11:35)
[2022-08-29 13:52] VITALS: BP 157/56; PULSE 94
--- NOTE | 2022-08-29 13:54 | EKG12_ITS ---
Test Reason : CP Blood Pressure : / mmHG Vent. Rate : 086 BPM Atrial Rate : 086 BPM P-R Int : 158 ms QRS Dur : 106 ms QT Int : 428 ms P-R-T Axes : 054 023 045 degrees QTc Int : 512 ms Normal sinus rhythm Prolonged QT Abnormal ECG When compared with ECG of 24-JUL-2022 17:00, No significant change was found Confirmed by ILANA BAKER, FLACO ([id number]), editor school photograph JULIA LOPES ([id number]) on 09/02/2022 12:27:43 PM Referred By: BREANNA Confirmed By:FLACO PRECIADO MD
[2022-08-29] MEDS: Mag Hydrox/Al Hydrox/Simeth 30 ML UDC PO (14:39)
--- NOTE | 2022-08-29 14:54 | NURSING ---
pt c/o herson pain, stat EKG ordered, Dr Plata notified. per spouse, pt had burped and reported relief. Dr Plata ordered Mylanta q6 PRN.
[2022-08-29 19:40] VITALS: BP 119/47; PULSE 63; RESP 18; TEMP 37.1; O2SAT 94
[2022-08-29 19:42] VITALS: PULSE 84; RESP 18; O2SAT 94; BMI 40.1
[2022-08-29] MEDS: Nystatin Powder 15gm Bottle 1 APPLIC TOPICAL (21:28)
[2022-08-29] MEDS: Atorvastatin Calcium 40 MG Tablet PO (21:29)
[2022-08-29] MEDS: Menthol/Lanolin/Calamine/Znox 113 GM Tube 1 APPLIC TOPICAL (21:42)
[2022-08-30] MEDS: Baclofen 10 MG Tablet 5 MG PO ×3 (05:28→21:02)
[2022-08-30] MEDS: oxyCODONE 5 MG Tablet 10 MG PO (05:37)
[2022-08-30 06:00] VITALS: BMI 40.0
[2022-08-30] MEDS: Allopurinol 100 MG Tablet PO (07:43)
[2022-08-30] MEDS: Fenofibrate 48 MG Tablet PO (07:43)
[2022-08-30] MEDS: Venlafaxine XR 75 MG Capsule 150 MG PO (07:43)
[2022-08-30] MEDS: APIXABAN 5 MG TABLET PO ×2 (07:43→21:03)
[2022-08-30] MEDS: amLODIPine 10 MG Tablet PO (07:44)
[2022-08-30] MEDS: Aspirin E.C. 81 MG Tablet PO (07:44)
[2022-08-30] MEDS: Folic Acid 1 MG Tablet PO (07:45)
[2022-08-30] MEDS: Hydroxychloroquine 200 MG Tablet PO ×2 (07:46→21:01)
[2022-08-30] MEDS: Senna/Docusate Sodium 1 Tablet PO ×2 (07:46→21:01)
[2022-08-30 07:51] VITALS: BP 103/40; PULSE 81; RESP 18; TEMP 36.7; O2SAT 99
[2022-08-30] MEDS: Gabapentin 300 MG Capsule PO ×3 (07:52→16:32)
[2022-08-30] MEDS: Pantoprazole Sodium 40 MG Tablet PO (09:22)
[2022-08-30] MEDS: Doxycycline 100 MG CAPSULE PO ×2 (09:22→21:03)
[2022-08-30] MEDS: Allopurinol 300 MG Tablet PO (09:22)
[2022-08-30] MEDS: oxyCODONE HCl Cr 10 MG Tablet PO ×2 (09:22→21:01)
[2022-08-30] MEDS: Lisinopril 20 MG Tablet 30 MG PO (09:23)
[2022-08-30 11:49] VITALS: BMI 40.0
[2022-08-30] MEDS: Ascorbic Acid 500 MG Tablet 1000 MG PO (12:11)
[2022-08-30] MEDS: Ferrous Sulfate 325 MG Tablet PO (12:11)
--- NOTE | 2022-08-30 12:39 | PCM.PROGNOTE ---
Subjective Subjective Afebrile VSS Maintaining appropriate oxygen saturation on RA Oral intake is good Discussed with nursing - no problems that need addressed. He is sleeping good and has a good appetite. Reviewed the PT/OT/ST notes Medication list reviewed. Still taking the Oxycodone 2 times a day. Back pain is status quo. No radiation into the legs. He had CP yesterday and nursing got an EKG. It was shortly after eating and he admits to having reflux occasionally. He sometimes lies down after eating because his back hurts. The EKG showed normal SR with a mildly prolonged QT at 428......it was 442 in July of this year. Mag was normal earlier in the admission and K has been WNL. Denies CP today. Pain yesterday was relieved with Mylanta and a PRN order has been added to the drug regimen. Objective Data Objective Data Vital Signs: Vital Signs Temp Pulse Resp BP Pulse Ox O2 Del Method O2 Flow Rate 98.1 F 81 18 103/40 L 99 Room Air 2 08/30/22 07:51 08/30/22 07:51 08/30/22 07:51 08/30/22 07:51 08/30/22 07:51 08/30/22 07:51 08/17/22 07:20 Oxygen Flow Rate (L/min) 2 Oxygen Delivery Method Room Air Weight: 322 lb 1.526 oz Body Mass Index (BMI) 40.0 Intake & Output: Intake and Output for Last 24 Hours 08/28/22 08/29/22 08/30/22 23:59 23:59 23:59 Intake Total 2126 / 2126 2356 / 2356 834 / 834 Output Total 1100 / 1100 1375 / 1375 700 / 700 Balance 1026 / 1026 981 / 981 134 / 134 Lab / Micro Data Result Diagrams: 08/31/22 05:23 08/31/22 05:23 Micro: Microbiology 07/24/22 18:35 Stool Stool Occult Blood (MARIA T) - Final Occult Blood Positive Physical Exam Const alert and no apparent distress Constitutional Narrative: Does no appear to be in severe pain when General Appearance: cooperative HEENT moist oral mucous membranes HEENT Narrative: No thrush Eyes PERRL and EOMs intact bilaterally Eyes Narrative: No scleral icterus, no conjunctival injection, no discharge from the eye, sclera is normal. Neck supple Neck Narrative: Thick short neck General: trachea midline Resp normal respiratory effort, no use of accessory muscles and clear to auscultation bilaterally Resp Narrative: Very diminished breath sounds, especially in the bases posteriorly. Effort and Inspection: Negative for tachypneic or labored Auscultation: wheezes and diminished lung sounds bilateral (suspect due to body habitus.) Cardio regular rate, regular rhythm, no murmurs and no gallops Cardio Narrative: Heart sounds are distant. No ectopy. GI normal to inspection, nondistended, normoactive bowel sounds, non-tender and non-distended GI Narrative: no guarding with palpation Extremity Negative for no calf tenderness Extremity Narrative: edema is controlled with the SINAN wraps General Extremity: Negative for edema Skin no jaundice General Skin Exam: no breakdown Rashes: no rashes Wound Narrative: Has a few punctate spots of blood on his back where he scratched. I reminded him that he is on an anticoagulant and he will bleed more easily while on the anticoagulant. Neuro CN's II-XII intact bilaterally Neuro Narrative: Still ambulating with FWW but, no LOB and strength is much improved. Speech: speech normal Psych affect normal Psych Narrative: Manan is cooperative, makes good eye contact, is sleeping well at night and has a good appetite. He feels encouraged by the progress that he is making in therapy and is no longer tearful. Appearance: appropriate Attitude: No agitated Assessment & Plan Assessment/Plan (1) Physical debility: (2) Stroke/cerebrovascular accident: (3) PFO (patent foramen ovale): (4) SAH (subarachnoid hemorrhage): (5) Aortic valve vegetation: (6) Endocarditis: (7) Severe aortic valve regurgitation: (8) DVT of lower limb, acute: (9) Chronic back pain: (10) 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: (11) Heme positive stool: (12) Iron deficiency: (13) Foreign body: PLAN: No foreign body on XRAY of the great toe. (14) GERD (gastroesophageal reflux disease): (15) QT prolongation: PLAN: Plan 1. Continue therapy 2. Await the results of the lab tomorrow. If there is no change in the CRP and ESR or if they increase will likely need to order a CT scan of the lumbar spine to rule out abscess, discitis and osteomyelitis secondary to bacteremia from endocarditis. 3. Mylanta as needed for reflux. I discouraged him from lying down immediately after eating. Charges/Coding Visit Charges Inpatient E&M: 65253 Subs Hosp L2
[2022-08-30 20:45] VITALS: BP 124/51; PULSE 86; RESP 18; TEMP 36.9; O2SAT 93
[2022-08-30 20:47] VITALS: BMI 40.0
[2022-08-30] MEDS: 0.9% Saline Lock 10 ML Syringe IV (20:53)
[2022-08-30] MEDS: Nystatin Powder 15gm Bottle 1 APPLIC TOPICAL (21:02)
[2022-08-30] MEDS: Atorvastatin Calcium 40 MG Tablet PO (21:02)
[2022-08-30] MEDS: Menthol/Lanolin/Calamine/Znox 113 GM Tube 1 APPLIC TOPICAL (21:03)
[2022-08-30 22:00] VITALS: PULSE 86; RESP 18; O2SAT 93
[2022-08-31] MEDS: Baclofen 10 MG Tablet 5 MG PO ×3 (04:57→22:50)
[2022-08-31] MEDS: oxyCODONE 5 MG Tablet 10 MG PO ×3 (04:58→18:53)
[2022-08-31] MEDS: 0.9% Saline Lock 10 ML Syringe IV (04:59)
[2022-08-31 05:43] LABS: Absolute Lymphocyte Count 1.32 X10^3/uL (0.83-4.51); Absolute Neutrophil Count 5.2 X10^3/uL (2.0-7.7); Basophil# 0.04 X10^3/uL; Basophil% 0.5 % (0-1); Eosinophil# 0.28 X10^3/uL; Eosinophils% 3.7 % (0-5); Lymphocyte # 1.32 X10^3/ul (0.83-4.51); Lymphocyte % 17.5 % (19-41); Mean Corp Hgb Conc 29.6 g/dL (32-36); Mean Corpuscular Hgb 24.6 pg (27.0-32.0); Mean Corpuscular Volume 83.1 fL (80-94); Mean Platelet Vol. 11.2 fl (6.2-12.0); Monocyte# 0.69 X10^3/uL; Monocyte% 9.2 % (0-10); NRBC Flagged by Analyzer 0 % (0-5); Neutrophil # 5.18 X10^3/uL (2.7-7.7); Neutrophil % 68.7 % (47-70); Platelet Count 327 K/mm3 (150-450); RBC Distribution Width CV 16.7 % (11.6-14.6); RBC Distribution Width SD 50.6 fl (35.1-43.9); Red Blood Count 3.25 M/mm3 (4.6-6.2); White Blood Count 7.5 K/mm3 (4.4-11.0)
[2022-08-31 06:00] VITALS: BMI 39.9
[2022-08-31 06:05] LABS: Anion Gap 6 (5-15); BUN 13 mg/dL (7-18); BUN/Creat Ratio 13.6 RATIO (10-20); CPK Total, Creatine Kinase 38 U/L (39-308); Calcium,Total 9.3 mg/dL (8.5-10.1); Chloride 107 mmol/L (98-107); Creatinine, Serum 0.96 mg/dL (0.70-1.30); EST Glomerular Filtration Rate 86 mL/min (>60); Est Glom Filt Rate - Afr Amer 104 mL/min (>60); Estimated Creatinine Clearance 100.25 ml/min; Glucose 92 mg/dL (74-106); Magnesium 2.4 mg/dL (1.6-2.6); Potassium 3.9 mmol/L (3.5-5.1); Sodium Level 140 mmol/L (136-145)
[2022-08-31 06:46] LABS: Erythrocyte Sedimentation Rate 49 mm/hr (0-20)
[2022-08-31] MEDS: Folic Acid 1 MG Tablet PO (08:45)
[2022-08-31] MEDS: Gabapentin 300 MG Capsule PO ×3 (08:45→16:48)
[2022-08-31] MEDS: Lisinopril 20 MG Tablet 30 MG PO (08:45)
[2022-08-31 08:46] VITALS: BP 131/57; PULSE 85; RESP 17; TEMP 36.4; O2SAT 97
[2022-08-31] MEDS: amLODIPine 10 MG Tablet PO (08:47)
[2022-08-31] MEDS: Hydroxychloroquine 200 MG Tablet PO ×2 (08:47→22:50)
[2022-08-31] MEDS: Allopurinol 300 MG Tablet PO (08:47)
[2022-08-31] MEDS: Venlafaxine XR 75 MG Capsule 150 MG PO (08:48)
[2022-08-31] MEDS: Aspirin E.C. 81 MG Tablet PO (08:48)
[2022-08-31] MEDS: APIXABAN 5 MG TABLET PO ×2 (08:50→22:50)
[2022-08-31] MEDS: Polyethylene Glycol 3350 17 GM PACKET PO (08:50)
[2022-08-31] MEDS: Fenofibrate 48 MG Tablet PO (08:50)
[2022-08-31] MEDS: Doxycycline 100 MG CAPSULE PO ×2 (08:51→22:51)
[2022-08-31] MEDS: Allopurinol 100 MG Tablet PO (08:52)
[2022-08-31] MEDS: Pantoprazole Sodium 40 MG Tablet PO (08:52)
[2022-08-31] MEDS: Acetaminophen 500 MG Tablet 1000 MG PO (09:01)
[2022-08-31] MEDS: oxyCODONE HCl Cr 10 MG Tablet PO ×2 (09:01→22:52)
--- NOTE | 2022-08-31 09:58 | ECHOCS_ITS ---
Version 2 Reason For Study: AV Endocarditis follow up Procedure This was a 2D Doppler, Color Flow transthoracic echocardiogram. Contrast injection was performed. Exam performed portable in patient room. Left Ventricle Normal LV size. Mild concentric left ventricular hypertrophy. Left ventricular systolic function is normal. The estimated ejection fraction is 60 %. No regional wall motion abnormalities noted. Right Ventricle Normal RV size. Normal systolic function. Atria Normal left atrium. Normal right atrium. Mitral Valve Normal mitral valve. Tricuspid Valve Normal tricuspid valve. Aortic Valve Trisinus/trileaflet aortic valve. Mild focal aortic valve thickening. Multiple jets. Moderate (2+) eccentric aortic valve insufficiency. Early diastolic aortic flow reversal. Pulmonic Valve The pulmonic valve is not well visualized. Great Vessels Normal aortic root. The pulmonary artery is normal size. Normal inferior vena cava. Pericardium/Pleural No pericardial effusion. Medication Diluted definity 3ml given slow IV push to enhance endocardial definition. MMode/2D Measurements & Calculations LVIDd: 6.3 cm IVSd: 1.3 cm LVOT diam: 2.4 cm LVIDs: 4.1 cm LVPWd: 1.3 cm RVDd: 4.4 cm FS: 34.8 % LVOT area: 4.7 cm2 Ao root diam: 3.0 cm LAV(MOD-bp): 71.1 ml LVAd ap4: 47.3 cm2 LAV(MOD-bp) Indexed: 26.5 ml/m2 LVLd ap4: 9.9 cm LAV(MOD-sp2): 64.0 ml EDV(MOD-sp4): 193.7 ml LAV(MOD-sp4): 71.6 ml EDV(sp4-el): 192.9 ml LVAs ap4: 26.2 cm2 LVLs ap4: 8.5 cm ESV(MOD-sp4): 66.1 ml ESV(sp4-el): 68.7 ml EF(MOD-sp4): 65.9 % EF(sp4-el): 64.4 % SV(MOD-sp4): 127.6 ml SV(sp4-el): 124.2 ml LA A4 area: 23.5 cm2 LA dimension(2D): 5.0 cm RA A4 area: 21.2 cm2 Time Measurements MV dec time: 0.20 sec Doppler Measurements & Calculations MV E max francisco: 103.6 cm/sec Lat Peak E' Francisco: 17.3 cm/sec Med Peak E' Francisco: 10.2 cm/sec MV A max francisco: 76.3 cm/sec E/E' lat: 6.0 E/E' med: 10.2 MV E/A: 1.4 MV dec slope: 515.4 cm/sec2 Ao V2 max: 243.2 cm/sec AI max francisco: 347.5 cm/sec Ao max P.7 mmHg AI max P.4 mmHg Ao V2 mean: 167.9 cm/sec AI dec slope: 398.3 cm/sec2 Ao mean P.0 mmHg AI P1/2t: 255.5 msec Ao V2 VTI: 48.1 cm AV (velocity ratio): 0.60 WHITNEY(I,D): 2.8 cm2 WHITNEY(V,D): 2.7 cm2 LV V1 max: 138.9 cm/sec SV(LVOT): 135.0 ml PA V2 max: 109.5 cm/sec LV V1 max P.7 mmHg LV V1 mean P.0 mmHg LV V1 mean: 106.5 cm/sec LV V1 VTI: 28.9 cm ECHO/Echo Complete W/ Contrast Interpretation Summary Normal LV size. Left ventricular systolic function is normal. The estimated ejection fraction is 60 %. Mild focal aortic valve thickening. Trisinus/trileaflet aortic valve. Multiple jets Mild concentric left ventricular hypertrophy. Moderate (2+) eccentric aortic valve insufficiency. Early diastolic aortic flow reversal. Ordering Physician: Sylvie Plata Referring Physician: Eleazar Hernandez Performed By: Cassandra Malloy, HAYDEE, RVT
--- NOTE | 2022-08-31 10:20 | CT_ITS ---
STUDY: CT LUMBAR SPINE WITH CONTRAST REASON FOR EXAM: Male, 57 years old. Increased CRP, pain RADIATION DOSAGE (If Supplied By Facility): CTDIvol = ( 45.13 ) mGy, DLP = ( 1593.16 ) mGycm TECHNIQUE: The patient was scanned in a multi detector CT scanner. High resolution transaxial imaging was performed following the intravenous administration of IV 100mL Isovue-300. Images were obtained from T12 to L1 vertebral level. Sagittal and coronal images were reconstructed. Individualized dose optimization techniques were used for this CT. COMPARISON: None FINDINGS: Normal lumbar lordosis. There is no substantial scoliosis. Spondylosis. L1-2: Mild degree of the disc space narrowing. Anterior spondylosis. L2-3: Mild degree of disc space narrowing. Anterior spondylosis. Facet joint osteoarthritis. Mild degree of diffuse posterior disc bulge. Mild degree of bilateral neural foraminal stenosis right greater than left. L3-4: Moderate degree of disc space narrowing. Spondylosis. Heterogeneous appearance of the inferior endplate of the L3 vertebrae. Heterogeneous appearance of the inferior aspect of the L4 vertebrae as well. L4-5: Mild degree of disc space narrowing. Anterior spondylosis. Right lateral disc protrusion causing narrowing of the right intervertebral foramen. Facet joint osteoarthritis and hypertrophy. Bilateral neural foraminal stenosis worse on the right side. L5-S1: Mild degree of disc space narrowing. Spondylosis. Degenerative changes seen in the anterior aspect of the sacroiliac joints bilaterally worse on the left side with bridging osteophytes. Normal visualized paraspinous soft tissue structures. CT/Spine Lumbar WITH Contrast IMPRESSION: Multilevel degenerative changes, as described above. Heterogeneous appearance of the L3 and L4 vertebrae as described. Correlation with the bone scan is recommended. Electronically Signed: Melvin Rankin MD at 11:13 EDT ,
--- NOTE | 2022-08-31 10:51 | PN_ITS ---
Subjective Subjective Was seen on team rounds today. His Lise was present in the room. Afebrile VSS Maintaining appropriate oxygen saturation on RA Oral intake is good Weight is down 12 pounds since admission to acute rehab. Discussed with nursing - no problems that need addressed Reviewed the PT/OT/ST notes Medication list reviewed. All lab from today was personally reviewed. Hemoglobin is down to 8 today from 8.9 on 07/24/2022. He was iron deficient and has received intravenous iron sucrose. Stool has been heme positive. Platelets are normal. ESR is still high at 49. BMP is unremarkable and the magnesium is 2.4. Creatinine is 0.96 which is up from 0.62 on 08/06/2022. CRP continues to increase and is 88.1 today which is up from 61.9 on 08/18/2022. Total CK is normal at 38. Al's only complaint today is back pain. Continues to deny any radiation of the pain into the legs. Denies LE paresthesia's. No CP, SOB, lightheadedness. Denies mouth pain, painful swallowing, diarrhea and dysuria. Objective Data Objective Data Vital Signs: Vital Signs Temp Pulse Resp BP Pulse Ox O2 Del Method O2 Flow Rate 97.5 F L 85 17 131/57 H 97 Room Air 2 08/31/22 08:46 08/31/22 08:46 08/31/22 08:46 08/31/22 08:46 08/31/22 08:46 08/31/22 08:46 08/17/22 07:20 Oxygen Flow Rate (L/min) 2 Oxygen Delivery Method Room Air Weight: 321 lb 6.943 oz Body Mass Index (BMI) 39.9 Intake & Output: Intake and Output for Last 24 Hours 08/29/22 08/30/22 08/31/22 23:59 23:59 23:59 Intake Total 2356 / 2356 2816 / 3116 794 / 794 Output Total 1375 / 1375 1999 / 2425 825 / 825 Balance 981 / 981 816 / 691 -31 / -31 Lab / Micro Data Result Diagrams: 08/31/22 05:23 08/31/22 05:23 Labs: Laboratory Results - last 24 hr 08/31/22 05:23: WBC 7.5, RBC 3.25 L, Hgb 8.0 L, Hct 27.0 L, MCV 83.1, MCH 24.6 L , MCHC 29.6 L, RDW Std Deviation 50.6 H, RDW Coeff of Ghassan 16.7 H, Plt Count 327, MPV 11.2, Immature Gran % (Auto) 0.400, Neut % (Auto) 68.7, Lymph % (Auto) 17.5 L, [place] % (Auto) 9.2, Eos % (Auto) 3.7, Baso % (Auto) 0.5, Absolute Neuts (auto) 5.2, Absolute Lymphs (auto) 1.32, Nucleated RBC % 0, ESR 49 H 08/31/22 05:23: Sodium 140, Potassium 3.9, Chloride 107, Carbon Dioxide 27.0, Anion Gap 6, BUN 13, Creatinine 0.96, Estim Creat Clear Calc 100.25, Est GFR (MDRD) Af Amer 104, Est GFR (MDRD) Non-Af 86, BUN/Creatinine Ratio 13.6, Glucose 92, Calcium 9.3, Magnesium 2.4, Total Creatine Kinase 38 L, C-React Prot Ext Range 88.10 H Micro: Microbiology 07/24/22 18:35 Stool Stool Occult Blood (MARIA T) - Final Occult Blood Positive Physical Exam Const alert, oriented x3 and no apparent distress General Appearance: cooperative Resp clear to auscultation bilaterally Resp Narrative: Markedly diminished BS's, amirah in the bases. No crackles or wheezes heard. Effort and Inspection: Negative for tachypneic or respiratory distress Cardio regular rate, regular rhythm, no murmurs, no rub and no gallops Cardio Narrative: Heart sounds are distant. No ectopy. GI normal to inspection, nondistended, normoactive bowel sounds, soft to palpation and non-tender Extremity no calf tenderness Extremity Narrative: edema is controlled with the SINAN wraps Skin General Skin Exam: no breakdown Rashes: no rashes Neuro CN's II-XII intact bilaterally Neuro Narrative: Still ambulating with FWW but, no LOB and strength is much improved. 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 PLAN: Plan 1. Continue therapy 2. Continue current antibiotics 3. CT scan of the lumbar spine with contrast. He has persistent severe pain in the lumbar area and did have bacteremia secondary to endocarditis so need to consider possible discitis abscess or osteomyelitis due to bacteremic spread. 4. Echocardiogram for follow-up on endocarditis. I am concerned that the ESR is still so elevated and the CRP is going up rather than down. I have him on Oxycontin 10 mgt BID and PRN oxycodone for breakthrough and he is still rating his pain at a 7-8 frequently. Charges/Coding Visit Charges Inpatient E&M: 76156 Subs Hosp L2
[2022-08-31 11:04] VITALS: BMI 39.9
[2022-08-31] MEDS: Ascorbic Acid 500 MG Tablet 1000 MG PO (12:21)
[2022-08-31] MEDS: Ferrous Sulfate 325 MG Tablet PO (12:21)
--- NOTE | 2022-08-31 12:44 | CASEMGMT ---
Social Work IDT met with patient and for Team meeting. Discussed patient's progress in PT/OT/SN. Educated to [facility] CM insurance with [employer] 09/09 with DC 09/10. Last day of IV ATB are 09/09. bought pt a tall wheeled walker from [employer]. SW updated [employer] to cancel order. SW to coordinate new appts with [facility] OP PT. No other needs noted. Will ReTeam next week. Plan: DC 09/10 TAHIR ShipmanW
[2022-08-31 21:08] VITALS: BP 148/80; PULSE 80; RESP 16; TEMP 36.1; O2SAT 96
[2022-08-31] MEDS: Menthol/Lanolin/Calamine/Znox 113 GM Tube 1 APPLIC TOPICAL (22:51)
[2022-08-31] MEDS: Nystatin Powder 15gm Bottle 1 APPLIC TOPICAL (22:51)
[2022-08-31] MEDS: Atorvastatin Calcium 40 MG Tablet PO (22:52)
[2022-09-01 00:06] VITALS: BMI 39.9
[2022-09-01 06:00] VITALS: BMI 40.2
[2022-09-01] MEDS: Baclofen 10 MG Tablet 5 MG PO ×3 (06:32→20:22)
[2022-09-01] MEDS: oxyCODONE 5 MG Tablet 10 MG PO ×2 (06:33→14:46)
[2022-09-01 07:33] VITALS: BP 122/50; PULSE 54; RESP 16; TEMP 36.9; O2SAT 93
[2022-09-01] MEDS: Lisinopril 20 MG Tablet 30 MG PO (08:27)
[2022-09-01] MEDS: Allopurinol 300 MG Tablet PO (08:27)
[2022-09-01] MEDS: Doxycycline 100 MG CAPSULE PO ×2 (08:27→20:21)
[2022-09-01] MEDS: Venlafaxine XR 75 MG Capsule 150 MG PO (08:27)
[2022-09-01] MEDS: amLODIPine 10 MG Tablet PO (08:27)
[2022-09-01] MEDS: Folic Acid 1 MG Tablet PO (08:27)
[2022-09-01] MEDS: Aspirin E.C. 81 MG Tablet PO (08:27)
[2022-09-01] MEDS: Senna/Docusate Sodium 1 Tablet PO ×2 (08:27→20:21)
[2022-09-01] MEDS: Fenofibrate 48 MG Tablet PO (08:27)
[2022-09-01] MEDS: Hydroxychloroquine 200 MG Tablet PO ×2 (08:27→20:22)
[2022-09-01] MEDS: Gabapentin 300 MG Capsule PO ×3 (08:28→17:21)
[2022-09-01] MEDS: APIXABAN 5 MG TABLET PO ×2 (08:28→20:20)
[2022-09-01] MEDS: Pantoprazole Sodium 40 MG Tablet PO (08:28)
[2022-09-01] MEDS: Allopurinol 100 MG Tablet PO (08:28)
[2022-09-01] MEDS: oxyCODONE HCl Cr 10 MG Tablet PO ×2 (10:28→23:42)
--- NOTE | 2022-09-01 10:39 | NURSING ---
Weekly labs faxed to Dr Morgan's office.
[2022-09-01 10:46] VITALS: BMI 40.2
[2022-09-01] MEDS: Ferrous Sulfate 325 MG Tablet PO (12:11)
[2022-09-01] MEDS: Ascorbic Acid 500 MG Tablet 1000 MG PO (12:11)
[2022-09-01 19:55] VITALS: BP 114/44; PULSE 76; RESP 20; TEMP 36.7; O2SAT 93
[2022-09-01] MEDS: Atorvastatin Calcium 40 MG Tablet PO (20:22)
[2022-09-01] MEDS: Acetaminophen 500 MG Tablet 1000 MG PO (20:23)
[2022-09-01] MEDS: Nystatin Powder 15gm Bottle 1 APPLIC TOPICAL (20:25)
[2022-09-02] MEDS: Baclofen 10 MG Tablet 5 MG PO (05:18)
[2022-09-02 06:00] VITALS: BMI 41.0
[2022-09-02 07:52] VITALS: BP 110/49; PULSE 74; RESP 16; TEMP 36.6; O2SAT 98
[2022-09-02] MEDS: Lisinopril 20 MG Tablet 30 MG PO (08:26)
[2022-09-02] MEDS: Polyethylene Glycol 3350 17 GM PACKET PO (08:26)
[2022-09-02] MEDS: Venlafaxine XR 75 MG Capsule 150 MG PO (08:28)
[2022-09-02] MEDS: Hydroxychloroquine 200 MG Tablet PO (08:29)
[2022-09-02] MEDS: Pantoprazole Sodium 40 MG Tablet PO (08:29)
[2022-09-02] MEDS: Allopurinol 100 MG Tablet PO (08:29)
[2022-09-02] MEDS: Senna/Docusate Sodium 1 Tablet PO (08:29)
[2022-09-02] MEDS: Gabapentin 300 MG Capsule PO ×2 (08:29→12:17)
[2022-09-02] MEDS: Allopurinol 300 MG Tablet PO (08:29)
[2022-09-02] MEDS: Fenofibrate 48 MG Tablet PO (08:30)
[2022-09-02] MEDS: Aspirin E.C. 81 MG Tablet PO (08:30)
[2022-09-02] MEDS: APIXABAN 5 MG TABLET PO (08:30)
[2022-09-02] MEDS: Folic Acid 1 MG Tablet PO (08:30)
[2022-09-02] MEDS: Doxycycline 100 MG CAPSULE PO (08:30)
[2022-09-02] MEDS: amLODIPine 10 MG Tablet PO (08:30)
--- NOTE | 2022-09-02 10:05 | NURSING ---
pt presented with increased confusion and BLE tremors. Had an episode of nausea when working with therapy. denies Chest pain, dizziness, headache, or vision changes. pupils equal and reactive, no slurred speech. VS WNL. Dr Plata made aware. New orders for stat CBC and CMP
[2022-09-02] MEDS: oxyCODONE HCl Cr 10 MG Tablet PO (10:25)
[2022-09-02 11:38] LABS: Absolute Lymphocyte Count 0.92 X10^3/uL (0.83-4.51); Basophil# 0.05 X10^3/uL; Basophil% 0.4 % (0-1); Eosinophil# 0.34 X10^3/uL; Hematocrit 26.6 % (40-54); Hemoglobin 7.9 g/dL (13.0-16.5); Lymphocyte # 0.92 X10^3/ul (0.83-4.51); Lymphocyte % 8.3 % (19-41); Mean Corp Hgb Conc 29.7 g/dL (32-36); Mean Corpuscular Hgb 25.3 pg (27.0-32.0); Mean Corpuscular Volume 85.3 fL (80-94); Monocyte# 0.83 X10^3/uL; Monocyte% 7.4 % (0-10); NRBC Flagged by Analyzer 0 % (0-5); Neutrophil # 8.98 X10^3/uL (2.7-7.7); Neutrophil % 80.6 % (47-70); Platelet Count 339 K/mm3 (150-450); RBC Distribution Width CV 16.9 % (11.6-14.6); RBC Distribution Width SD 52.9 fl (35.1-43.9); Red Blood Count 3.12 M/mm3 (4.6-6.2); White Blood Count 11.2 K/mm3 (4.4-11.0)
[2022-09-02 11:53] LABS: ALB/GLOB Ratio 0.5 RATIO (0.9-2.4); AST(SGOT) 17 U/L (15-37); Alanine Aminotransfer ALT/SGPT 20 U/L (16-61); Albumin, Serum 2.6 g/dL (3.2-5.0); Alkaline Phosphatase 107 U/L (45-117); Anion Gap 9 (5-15); BUN 36 mg/dL (7-18); BUN/Creat Ratio 7.8 RATIO (10-20); Calcium,Total 9.3 mg/dL (8.5-10.1); Chloride 104 mmol/L (98-107); Creatinine, Serum 4.62 mg/dL (0.70-1.30); EST Glomerular Filtration Rate 14 mL/min (>60); Est Glom Filt Rate - Afr Amer 17 mL/min (>60); Estimated Creatinine Clearance 20.83 ml/min; Globulin 5.4 g/dL (2.2-4.2); Glucose 89 mg/dL (74-106); Potassium 4.5 mmol/L (3.5-5.1); Sodium Level 138 mmol/L (136-145)
[2022-09-02 11:58] VITALS: BP 131/54; PULSE 83; RESP 16; TEMP 36.3; O2SAT 93
--- NOTE | 2022-09-02 12:11 | PN_ITS ---
Subjective Subjective Afebrile VSS Maintaining appropriate oxygen saturation on RA Oral intake is decreased today. He had 50 to 74% of his breakfast today. Discussed with nursing - he is off today. Confused. Had some tremors of the UE's. Not himself. Reviewed the PT/OT/ST notes Medication list reviewed. STAT labs with increased WBC count at 11.2 with 81% neutrophils. Hemoglobin is stable at 7.9. Creatinine today is 4.62, up from 0.96 on 08/31/2022. Estimated creatinine clearance is 20. LFTs are normal. Lactic acid is pending. Calcitonin, repeat blood cultures, PT, PTT and fibrinogen have been ordered. He is c/o of severe back pain today.....the worst yet. He is fidgety and can not get comfortable. Denies cough, CP, palpitations, vomiting, diarrhea, dysuria, calf pain, lightheadedness and cephalgia. He has mild nausea and confusion and increased back pain. Objective Data Objective Data Vital Signs: Vital Signs Temp Pulse Resp BP Pulse Ox O2 Del Method O2 Flow Rate 97.4 F L 83 16 131/54 H 93 Room Air 2 09/02/22 11:58 09/02/22 11:58 09/02/22 11:58 09/02/22 11:58 09/02/22 11:58 09/02/22 11:58 09/01/22 22:00 Oxygen Flow Rate (L/min) 2 Oxygen Delivery Method Room Air Weight: 330 lb 4.039 oz Body Mass Index (BMI) 41.0 Intake & Output: Intake and Output for Last 24 Hours 08/31/22 09/01/22 09/02/22 23:59 23:59 23:59 Intake Total 2648 / 2648 2584 / 2884 944 / 944 Output Total 1825 / 1925 1100 / 1100 0 / 0 Balance 823 / 723 1484 / 1784 944 / 944 Lab / Micro Data Result Diagrams: 09/02/22 11:29 09/02/22 11:29 Labs: Laboratory Results - last 24 hr 09/02/22 11:29: WBC 11.2 H, RBC 3.12 L, Hgb 7.9 L, Hct 26.6 L, MCV 85.3, MCH 25.3 L, MCHC 29.7 L, RDW Std Deviation 52.9 H, RDW Coeff of Ghassan 16.9 H, Plt Count 339, MPV 11.0, Immature Gran % (Auto) 0.300, Neut % (Auto) 80.6 H, Lymph % (Auto) 8.3 L, [place] % (Auto) 7.4, Eos % (Auto) 3.0, Baso % (Auto) 0.4, Absolute Neuts (auto) 9.0 H, Absolute Lymphs (auto) 0.92, Nucleated RBC % 0 09/02/22 11:29: Sodium 138, Potassium 4.5, Chloride 104, Carbon Dioxide 25.0, Anion Gap 9, BUN 36 H, Creatinine 4.62 H, Estim Creat Clear Calc 20.83, Est GFR (MDRD) Af Amer 17 L, Est GFR (MDRD) Non-Af 14 L, BUN/Creatinine Ratio 7.8 L, Glucose 89, Calcium 9.3, Total Bilirubin 0.50, AST 17, ALT 20, Alkaline Phosphatase 107, Total Protein 8.0, Albumin 2.6 L, Globulin 5.4 H, Albumin/Globulin Ratio 0.5 L Micro: Microbiology 08/31/22 14:44 Blood Culture (Wb) - Arm Right Blood Culture - Preliminary No growth in 48 hours. 08/31/22 14:38 Blood Culture (Wb) - Anticubital Right Blood Culture - Preliminary No growth in 48 hours. 07/24/22 18:35 Stool Stool Occult Blood (MARIA T) - Final Occult Blood Positive Physical Exam Const alert Constitutional Narrative: sitting in the recliner. Very restless. Oriented to person and year......can not tell me the year
[2022-09-02] MEDS: Ferrous Sulfate 325 MG Tablet PO (12:13)
[2022-09-02] MEDS: Ascorbic Acid 500 MG Tablet 1000 MG PO (12:18)
--- NOTE | 2022-09-02 12:20 | RAD_ITS ---
STUDY: X-RAY CHEST REASON FOR EXAM: Male, 57 years old. Shortness of breath. TECHNIQUE: Single AP portable view of the chest. COMPARISON: July 24, 2022. FINDINGS: The lungs are clear and expanded. There is no demonstrated pleural abnormality. Normal size heart. Normal mediastinum and daisy. Normal visualized pulmonary arteries. Normal visualized aortic arch and descending thoracic aorta. There are diffuse degenerative changes of the visualized thoracic spine. Normal visualized ribs, clavicles, and shoulders. There is no demonstrated abnormality of the visualized soft tissue structures of the upper abdomen. RAD/Chest 1 View (Portable) IMPRESSION: Degenerative changes, as described above. No demonstrated acute cardiopulmonary process. Electronically Signed: Momo Castillo DO at 16:59 EDT ,
[2022-09-02] MEDS: HYDROmorphone 1 MG/ML Syringe IV (12:39)
[2022-09-02] MEDS: 0.9% Saline Lock 10 ML Syringe IV (12:39)
[2022-09-02 12:40] LABS: International Normalized Ratio 1.6; Prothrombin Time (Protime)PT. 19.5 SECONDS (11.7-14.9)
[2022-09-02 12:55] LABS: Fibrinogen 796 mg/dl (203-444)
[2022-09-02 13:08] VITALS: BP 131/54; PULSE 83; RESP 16; TEMP 36.3; O2SAT 93
--- NOTE | 2022-09-02 13:09 | DCINST_ITS ---
Discharge Instructions Diet Discharge Diet: Renal Diet Follow Up Care Test Results: Test results from this visit will be discussed in further detail at your follow- up appointment, if applicable. 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 Now Acute sepsis/ARF Attending Provider: Sylvie Plata Primary Care Provider: Eleazar Hernandez Consulting Providers: Ky Riojas ; Franc Donohue Discharge Orders/Prescriptions Prescriptions: New baclofen 10 mg Tablet 5 mg PO BID Qty: 1 0RF fenofibrate nanocrystallized 48 mg Tablet 48 mg PO DAILYCM Qty: 1 0RF ascorbic acid (vitamin C) 500 mg Tablet 1,000 mg PO 1200 Qty: 1 0RF doxycycline monohydrate 100 mg Capsule 100 mg PO BID Qty: 1 0RF bisacodyl 10 mg Suppository 10 mg ID .PRN X 1 PRN (Reason: Constipation) Qty: 1 0RF pantoprazole 40 mg Tablet,Delayed Release (Dr/Ec) 40 mg PO DAILY Qty: 1 0RF ferrous sulfate [FeroSul] 325 mg (65 mg iron) Tablet 325 mg PO DAILY@1200 Qty: 1 0RF nystatin [Nyamyc] 100,000 unit/gram Powder 1 applic topical QHS Qty: 1 0RF Protocol: *Topical Application Instructions APPLICATION INSTRUCTIONS: groin alum-mag hydroxide-simeth [Mag-Al Plus Extra Strength] 400-400-40 mg/5 mL Suspension 15 ml PO Q6H PRN PRN (Reason: HEARTBURN OR INDIGESTION) Qty: 1 0RF sodium chloride 0.9 % (flush) [Normal Saline Flush] Syringe 10 - 40 ml IV UD PRN (Reason: Port access or dressing change) Qty: 1 0RF acidophilus-pectin, citrus 25 million cell -100 mg Tablet 1 tab PO TIDCM Qty: 1 0RF heparin, porcine (PF) 10 unit/mL Syringe 50 units IV QHS Qty: 1 0RF venlafaxine 75 mg Capsule,Extended Release 24hr 75 mg PO DAILY Qty: 1 0RF gabapentin 100 mg capsule 100 mg PO TIDCM Qty: 1 0RF Ampicillin-Sulbactam 3 g IVPB Q6H Qty: 1 0RF Cubicin 900 mg IVPB DINNER Qty: 1 0RF Continued Cubicin 900 mg IVPB DINNER Rx Instructions: Q24 HOURS amlodipine 10 mg PO/SL DAILY atorvastatin 40 mg PO/SL QHS polyethylene glycol 3350 17 g PO/SL DAILY senna-docusate sodium 8.6 - 50 mg PO/SL BID Discontinued allopurinol 100 mg tablet 100 mg PO DAILY Label Comments: TAKE 1 TABLET BY MOUTH EVERY DAY FOR 90 DAYS allopurinol 300 mg tablet 300 mg PO DAILY Label Comments: TAKE 1 TABLET BY MOUTH EVERY DAY FOR 90 DAYS Acetaminophen Pain Relief tablet 500 mg PO/SL Q8H PRN PRN (Reason: Pain) Rx Instructions: GIVE 2 TABLETS FOR A PAIN SCALE OF 1-10 enalapril maleate 20 mg tablet 20 mg PO DAILY Label Comments: TAKE 1 TABLET BY MOUTH EVERY DAY FOR 90 DAYS clopidogrel 75 mg tablet 75 mg PO DAILY Label Comments: TAKE 1 TABLET BY MOUTH EVERY DAY folic acid 1 mg tablet 1 mg PO DAILY Label Comments: TAKE 1 TABLET BY MOUTH TWICE A DAY FOR 90 DAYS hydroxychloroquine 200 mg tablet 200 mg PO BID Label Comments: TAKE 1 TABLET BY MOUTH EVERY DAY FOR 30 DAYS albuterol sulfate 90 mcg/actuation HFA aerosol inhaler 90 mcg INHALATION Q6H PRN PRN (Reason: Shortness Of Breath Or Wheezing) Label Comments: USE 1 PUFF INTO THE LUNGS EVERY 6 HOURS NEEDED FOR SHORTNESS OF BREATH oxycodone 5 mg tablet 5 mg PO Q6H PRN PRN (Reason: PAIN) Label Comments: TAKE 1 TABLET BY MOUTH EVERY 6 HOURS NEEDED FOR PAIN FOR UP TO 3 DAYS Rx Instructions: PAIN SCALE 4-10 fenofibrate 54 mg tablet 54 mg PO DAILY Label Comments: TAKE 1 TABLET BY MOUTH EVERY DAY FOR 90 DAYS baclofen 5 mg tablet 5 mg PO 2XD PRN (Reason: MUSCLE CRAMPS) Label Comments: 1-2 TABLETS NEEDED ORALLY TWICE A DAY NEEDED MUSCLE CRAMPS 3 DAYS ampicillin-sulbactam 3 g IVPB Q6H aspirin 81 mg PO/SL DAILY Referrals / Follow Up: [facility] first floor registration [Other] - 09/14/22 2:00 pm [facility] [Other] (have PCP give you a referral for rheumatoid arthritis ) Sleep LAB [Other] Eddie, Infectious Disease [Other] - 09/16/22 2:00 pm Discogram [Other] - 09/09/22 12:00 pm (hold Eliquis for 6 doses starting on 09/07 ) Padmini Russo MD [Med Staff - Active Staff] - 09/14/22 9:30 am Eleazar Hernandez DO [Primary Care Provider] - 09/18/22 2:30 pm Trevor Christensen MD [Med Staff - Active Staff] - 09/16/22 11:00 am Franc Donohue MD [Med Staff - Active Staff] - 09/17/22 2:30 pm Faheem Vickers MD [Non-Staff -Ordering Privileges] - Disposition Disposition (needs filled in before D/C Order can be placed): Home, Self Care
[2022-09-02] MEDS: 0.9% Normal Saline 1,000 ML 500 ML IV (13:12)
--- NOTE | 2022-09-02 13:44 | PCM.DC.SUM ---
Providers Date of Admission: 07/23/22 Date of Discharge: 09/02/22 Primary Care Physician: Dr. Eleazar Hernandez, Consultations 07/28/22 11:57 Consult: Vascular Surgery Routine Consulting Provider: Franc Donohue Reason for Consult: IVC Filter EMERGENT Consult: Yes Notified: Yes Date Notified: 07/28/22 Time Notified: 11:59 Method of Notification: Answering Service 07/28/22 15:51 Consult: Infectious Disease Routine Consulting Provider: Ky Riojas Reason for Consult: enodocarditis on Daptomycin and Unasyn EMERGENT Consult: No Notified: Yes Date Notified: 07/28/22 Time Notified: 15:51 Method of Notification: Answering Service Reason For Visit: Embolic CVA's due to PFO/endocarditis AV Diagnosis Discharge Diagnosis (1) Severe sepsis: Status: Acute Code(s): A41.9 - Sepsis, unspecified organism; R65.20 - Severe sepsis without septic shock (2) Vertebral osteomyelitis, acute: Status: Suspected Code(s): M46.20 - Osteomyelitis of vertebra, site unspecified (3) Acute renal failure: Status: Acute Code(s): N17.9 - Acute kidney failure, unspecified Plan: Due to sepsis +/- contrast induced nephropathy from CT of the Lumbar spine on 08/31/22. (4) Encephalopathy acute: Status: Acute Code(s): G93.40 - Encephalopathy, unspecified Plan: Likely multifactorial due to sepsis, ARF and accumulation of Gabapentin, Baclofen, Oxycontin in pt with ARF. (5) Physical debility: Status: Acute Code(s): R53.81 - Other malaise (6) Stroke/cerebrovascular accident: Status: Acute Code(s): I63.9 - Cerebral infarction, unspecified Plan: Multiple small embolic CVAs 07/11/2022 secondary to patent foramen ovale. Received tPA and follow-up CT showed a small subarachnoid hemorrhage. Received 4 weeks of dual antiplatelet agents. (7) PFO (patent foramen ovale): Status: Acute Code(s): Q21.12 - Patent foramen ovale (8) SAH (subarachnoid hemorrhage): Status: Acute Code(s): I60.9 - Nontraumatic subarachnoid hemorrhage, unspecified Plan: Following TPA. (9) Endocarditis: Status: Acute Code(s): I38 - Endocarditis, valve unspecified Plan: No pathogen cultured. Was receiving Daptomycin, Unasyn and Doxycycline since transfer to rehab. AV. Echo done 08/31/2022 showed no vegetation. He had 2+ aortic regurgitation and mild thickening of the aortic valve. EF was 60% with mild concentric left ventricular hypertrophy. (10) Severe aortic valve regurgitation: Status: Acute Code(s): I35.1 - Nonrheumatic aortic (valve) insufficiency Plan: 2+ now on ECHO 08/31/22 (11) DVT of lower limb, acute: Status: Acute Code(s): I82.409 - Acute embolism and thrombosis of unspecified deep veins of unspecified lower extremity Plan: IVC filter inserted by Dr. Donohue because of the SAH. 1 month after the strokes and SAH he was started on Eliquis. (12) Chronic back pain: Status: Chronic Code(s): M54.9 - Dorsalgia, unspecified; G89.29 - Other chronic pain Plan: Acute exacerbation due to vertebral osteomyelitis. (13) 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: Status: Acute Code(s): Z95.828 - Presence of other vascular implants and grafts Plan: Inserted at [facility] prior to transfer to [facility] acute rehab. (14) Heme positive stool: Status: Acute Code(s): R19.5 - Other fecal abnormalities Plan: Was started on Protonix. (15) Iron deficiency: Status: Acute Code(s): E61.1 - Iron deficiency Plan: Received 700 mg of IV iron and then started on ferrous sulfate and Ascorbic acid. (16) Foreign body: Status: Suspected Plan: No foreign body on XRAY of the great toe. He has a callous on the tip of the R great toe. (17) GERD (gastroesophageal reflux disease): Status: Acute Code(s): K21.9 - Gastro-esophageal reflux disease without esophagitis (18) QT prolongation: Status: Acute Code(s): R94.31 - Abnormal electrocardiogram [ECG] [EKG] (19) Obstructive sleep apnea: Status: Suspected Code(s): G47.33 - Obstructive sleep apnea (adult) (pediatric) (20) Hypertension: Status: Chronic Code(s): I10 - Essential (primary) hypertension (21) Gout: Status: Acute Code(s): M10.9 - Gout, unspecified (22) Rheumatoid arthritis: Status: Acute Code(s): M06.9 - Rheumatoid arthritis, unspecified Plan: Has never seen a appraiser auditor. PCP diagnosed him with this and started him on Plaquenil. (23) PVD (peripheral vascular disease): Status: Acute Code(s): I73.9 - Peripheral vascular disease, unspecified Plan: Had a stent in the RLE a few weeks prior to the strokes......this may be where the DVT came from and then possibly the strokes due to the PFO. Plan 1. He has been accepted for transfer to [facility] but, they will not have a bed until later today or tomorrow. Dr. James accepted the pt and he is being transferred to the acute side of the hospital to await the bed at [facility]. 2. Will need a vertebral bone bx and aspiration of the L3-4 disc space by IR at [facility]. 3. Discussed with Dr. Naranjo. Will continue the current antibiotics (renal dosing per pharmacy) since he is stable 4. DC Oxycontin and Oxycodone and use Dilaudid 1 mg IV Q4H PRN severe back pain. Watch for signs of opiate withdrawal. 5. Decrease the Baclofen to milligrams BID since this drug cannot be abruptly withdrawn. 6. Change gabapentin from 300 mg 3 times daily to 100 mg 3 times daily 7. Discontinue Eliquis -he has an IVC filter 8. Hold aspirin and Plavix 9. Normal saline 1 L given on rehab. Accurate intake and output ordered 10. Will need nephrology consult for possible contrast-induced nephropathy 11. Transferr to [facility] when the bed is available. Dr. Beasley accepting. Medications at Discharge Home Medications Cubicin 900 mg IVPB DINNER ATB 07/23/22 amlodipine 10 mg PO/SL DAILY HTN 07/23/22 atorvastatin 40 mg PO/SL QHS HIGH CHOLESTEROL 07/23/22 polyethylene glycol 3350 17 g PO/SL DAILY CONSTIPATION 07/23/22 senna-docusate sodium 8.6 - 50 mg PO/SL BID STOOL SOFTENER 07/23/22 Cubicin 900 mg IVPB DINNER #1 BAG 09/02/22 acidophilus 25 million cell-pectin, citrus 100 mg tablet 1 tab PO TIDCM #1 TAB 09/02/22 aluminum-mag hydroxide-simethicone 400 mg-400 mg-40 mg/5 mL oral susp (Mag-Al Plus Extra Strength) 15 ml PO Q6H PRN PRN HEARTBURN OR INDIGESTION #1 mL 09/02/22 ampicillin-sulbactam 3 g IVPB Q6H #1 BAG 09/02/22 ascorbic acid (vitamin C) 500 mg tablet 1,000 mg PO 1200 #1 TAB 09/02/22 baclofen 10 mg tablet 5 mg PO BID #1 TAB 09/02/22 bisacodyl 10 mg rectal suppository 10 mg GA .PRN X 1 PRN Constipation #1 ea 09/02/22 doxycycline monohydrate 100 mg capsule 100 mg PO BID #1 cap 09/02/22 fenofibrate nanocrystallized 48 mg tablet 48 mg PO DAILYCM #1 TAB 09/02/22 ferrous sulfate 325 mg (65 mg iron) tablet (FeroSul) 325 mg PO DAILY@1200 #1 TAB 09/02/22 gabapentin 100 mg capsule 100 mg PO TIDCM #1 cap 09/02/22 heparin, porcine (PF) 10 unit/mL intravenous syringe 50 units (5 mL) IV QHS #1 mL 09/02/22 nystatin 100,000 unit/gram topical powder (Nyamyc) 1 applic topical QHS #1 g 09/02/22 pantoprazole 40 mg tablet,delayed release 40 mg PO DAILY #1 TAB 09/02/22 sodium chloride 0.9 % (flush) (Normal Saline Flush 0.9 % injection syringe) 10 - 40 ml IV UD PRN Port access or dressing change #1 mL 09/02/22 venlafaxine 75 mg capsule,extended release 24 hr 75 mg PO DAILY #1 cap 09/02/22 Hospital Course Operations None Procedures IVC filter placement (07/29/[address] Franc Donohue) Summary of Care Provided Minutes Spent on Discharge: 45 Hospital Course: PHILIP DU, is a 57 YO M with a PMH of HTN, Class 3 obesity, hyperuricemia, gout, recent (06/29/22) angioplasty and stent to the R popliteal Artery for occlusion, RA (started on Plaquenil and folic acid by his PCP.....no recent eye exam), tobacco dependence in remission, FH of heart disease and chronic back pain (without radicular pain)?who presented to [facility] on 07/11/22 with left side weakness and slurred speech.? NIHSS was 11 at presentation to the emergency room.? Stat [place] CT brain was negative for acute findings and he received TNK.? He was transferred to [facility] for further workup.? Upon arrival at [facility] his NIHSS was 4.? He was evaluated by Dr. Warner for LVO and there was no indication for EVT at the time.? He was admitted to the NICU and his NIHSS later went back up to 11. He was then taken for an emergent M1 thrombectomy.? MRI showed ischemic infarcts in the R M1 and M2 areas and also in the L temporal lobe, the occipital lobe and the L cerebellum and a small SAH in the Left temporal area.? Follow up MRI showed no changes.? He had a TTE to determine the etiology of the emboli and he was found to have a PFO.? He also had fever and leukocytosis and a DEYVI was done and it showed severe aortic regurgitation with a vegetation on the aortic valve.? Blood cultures were negative.? He was seen in consultation by infectious disease and at the time of transfer to [facility] acute rehab he was on Unasyn and daptomycin.? While at the [facility] he was seen by PT/OT/ST and a recommendation for acute rehab was made.? Albaro was transferred to [facility] acute rehab on 07/23/22 for 3 hours of therapy daily to restore function/independence at or near his prior level.? He c/o R calf pain at admission and a venous Doppler was done of the right lower extremity and showed acute deep vein thrombosis of the right gastrocnemius vein. Dr. Franc Donohue from vascular surgery was consulted and recommended a repeat venous Doppler in a few days to see if the thrombus was extending. On 07/28/2022 the venous Doppler showed acute deep vein thrombosis in the right gastrocnemius vein which was unchanged but also showed acute deep vein thrombosis in the right soleus vein which was new. On 07/29/2022 he was taken to [facility] and a temporary IVC filter was placed by Dr. Donohue. Because of the SAH post TNK he could not be started on full dose anticoagulation. 4 weeks after the SAH he was started on Eliquis and has been stable. HGB was low at 8.9 at admission and failed to improve. A heme stool was positive and he was started on Protonix. Iron studies were ordered and he had a iron saturation of only 10%. He received 700 mg of intravenous iron and then was started on ferrous sulfate 325 mg daily with ascorbic acid 500 mg daily. HGB has failed to increase and this may be due to bone marrow suppression from chronic infection. Albaro has chronic back pain and was very uncomfortable unless he was lying down in the bed. He had been taking Oxycodone 10 mg PRN for pain but, was still rating the pain at 7-8 and he was started on OxyContin 10 mg every 12 hours. He felt much better and less stiff in the morning. He was better able to do his physical therapy. While in acute rehab Al had weekly blood work done to follow the infection. Results were always faxed to Dr. Zane Morgan. White blood cell count was normal since arrival on acute rehab. The initial sed rate was 61 but went up to 88 on 08/11/2022 and has been decreasing since then but, it is still significantly elevated and on 08/31/2022 it was 49. CRP was initially 32.2 and has been steadily climbing. On 08/31/2022 the CRP was 88. Total CK has been normal throughout the course of his antibiotics. Liver panel on 09/02/2022 is normal. He concluded 6 weeks of daptomycin, Unasyn and doxycycline but since the CRP was still climbing Dr. Morgan wanted 2 additional weeks of antibiotics. Albaro's back pain was getting worse and a CT of the lumbar spine with contrast was done on 08/31/2022. This showed a heterogeneous appearance of L3 and L4 suspected to be secondary to vertebral osteomyelitis. An echocardiogram was also obtained on 08/31/2022 and it showed moderate, 2+, aortic regurgitation with no vegetation on the valve. The ejection fraction was 60% with mild left concentric ventricular hypertrophy. I spoke with Dr. Morgan who recommended blood cultures which were done and have had no growth to date. Also recommended was vertebral bone culture and aspiration of the L3-L4 disc space for cultures. This procedure is not done by interventional radiology at [facility] nor is it done by the orthopedic spine surgeon. Arrangements were made for him to have the procedure done at [facility] as an outpatient. On 09/02/2022 he had an abrupt change in mental status and became confused. He also complained of some nausea. Stat lab was obtained and the white blood cell count was elevated at 11.2 with 81% neutrophils. This is the first time he has had leukocytosis since arriving on rehab. A CMP revealed a creatinine of 4.26, up from 0.962 days prior. Potassium was 4.5. Procalcitonin was elevated at 0.4. Lactic acid was within normal limits. Differential included contrast induced nephropathy and severe sepsis with acute renal failure or a combination of both. I suspect that some of the confusion may be due to ARF with accumulation of Baclofen 5 mg TID, Oxycontin 10 mg Q 12H, Gabapentin and PRN Oxycodone (usually 2 times a day). On 09/01/22 he was his normal self. I contacted [facility] and spoke with Dr. Beasley who accepted transfer but, they said they might not have a bed until later in the day or in the AM. I spoke with Dr. James who accepted Al in transfer to the acute side of [facility] on the PCU to wait for the bed at [facility]. He will need a bx of L3 or L4 and aspiration of the L3-L4 disc space so that we can identify the pathogen. I spoke with Dr. Riojas who felt we should continue the current antibiotics since VS were stable and hope that we can culture the pathogen and change antibiotics. Eliquis was discontinued and so were ASA and Plavix. He was placed on a renal diet. Gabapentin was decreased to 100 mg 3 times daily and baclofen was decreased to 5 mg twice daily for pain control. OxyContin and oxycodone were discontinued. He will get PRN Pain meds only. He received 1 mg of IV Dilaudid at 12:13 on rehab and the pain improved. If Al needs rehab post admission to [facility] we would accept him back to [facility] rehab. Attempt was made to call Al's Shani but, she did not answer her cell and the had not been set up. Will continue to try and reach her. She did talk to AL and he presume he updated her. Physical Exam Const alert Constitutional Narrative: Confused. At the time of my exam he was able to follow simple commands but, later when PT saw him he could not follow commands. Not diaphoretic. No tremors. Pupils are mildly constricted. Marked change in mental status since yesterday. He is restless Orientation / Consciousness: confused HEENT normocephalic and head/scalp atraumatic HEENT Narrative: Mucous membranes are very dry Eyes Eyes Narrative: Pupils are mildly constricted but reactive to light. Neck supple Cardio regular rate, regular rhythm, no murmurs and no gallops Cardio Narrative: No ectopy GI normal to inspection, nondistended, normoactive bowel sounds, soft to palpation and non-tender GI Narrative: No guarding with palpation Extremity no calf tenderness Extremity Narrative: Francisco J wraps are present on the bilateral lower extremities to control swelling. General Extremity: Negative for edema Skin General Skin Exam: no breakdown and dry skin Rashes: no rashes Neuro Neuro Narrative: Very mild facial droop. Generalized weakness today. Disoriented and unable to follow commands with therapists. Not ataxic. Intact sensation. Weight / BMI Weight Weight: 330 lb 4.039 oz Body Mass Index (BMI) 41.0 ABG / Lab / Microbiology Data Result Diagrams: 09/02/22 11:29 09/02/22 11:29 Laboratory: Laboratory Results - last 24 hr 09/02/22 11:29: WBC 11.2 H, RBC 3.12 L, Hgb 7.9 L, Hct 26.6 L, MCV 85.3, MCH 25.3 L, MCHC 29.7 L, RDW Std Deviation 52.9 H, RDW Coeff of Ghassan 16.9 H, Plt Count 339, MPV 11.0, Immature Gran % (Auto) 0.300, Neut % (Auto) 80.6 H, Lymph % (Auto) 8.3 L, [place] % (Auto) 7.4, Eos % (Auto) 3.0, Baso % (Auto) 0.4, Absolute Neuts (auto) 9.0 H, Absolute Lymphs (auto) 0.92, Nucleated RBC % 0 09/02/22 11:29: Sodium 138, Potassium 4.5, Chloride 104, Carbon Dioxide 25.0, Anion Gap 9, BUN 36 H, Creatinine 4.62 H, Estim Creat Clear Calc 20.83, Est GFR (MDRD) Af Amer 17 L, Est GFR (MDRD) Non-Af 14 L, BUN/Creatinine Ratio 7.8 L, Glucose 89, Calcium 9.3, Total Bilirubin 0.50, AST 17, ALT 20, Alkaline Phosphatase 107, Total Protein 8.0, Albumin 2.6 L, Globulin 5.4 H, Albumin/Globulin Ratio 0.5 L 09/02/22 11:29: PT 19.5 H, INR 1.6, APTT 104.0 H*, Fibrinogen 796 H 09/02/22 11:29: Procalcitonin 0.40 H Microbiology: Microbiology 08/31/22 14:44 Blood Culture (Wb) - Arm Right Blood Culture - Preliminary No growth in 48 hours. 08/31/22 14:38 Blood Culture (Wb) - Anticubital Right Blood Culture - Preliminary No growth in 48 hours. 07/24/22 18:35 Stool Stool Occult Blood (MARIA T) - Final Occult Blood Positive D/C Instructions Discharge Diet: Renal Diet Meaningful Use Info Meaningful Use Diagnoses (Choose all that apply): Ischemic CVA CVA Therapy Assessed for PT,OT and/or ST?: Yes Ischemic Stroke Antithrombotic order at d/c?: No Reason antithrombotic not ordered: Medical Contraindication (ASA, CLopidogrel and Eliquis stopped in preparation for IR bx of vertebral body for vertebral osteomyelitis. ) Dx of Atrial fib/flutter?: No Anticoagulant at discharge?: No Reason anticoagulant not ordered: Medical Contraindication Statins at discharge?: Yes Primary Dx Acute Ischemic CVA?: Yes IV thrombolytic ordered during stay?: No Reason IV thrombolytic not ordered: Treatment not Indicated Discharge Plan Admission Admit Date/Time: 07/23/22 19:06 Primary Reason for Your Visit: multiple embolic CVA's due to PFO and endocarditis. Now Acute sepsis/ARF Attending Provider: Sylvie Plata Primary Care Provider: Eleazar Hernandez Consulting Providers: Ky Riojas ; Franc Donohue Discharge Orders/Prescriptions Prescriptions: New baclofen 10 mg Tablet 5 mg PO BID Qty: 1 0RF fenofibrate nanocrystallized 48 mg Tablet 48 mg PO DAILYCM Qty: 1 0RF ascorbic acid (vitamin C) 500 mg Tablet 1,000 mg PO 1200 Qty: 1 0RF doxycycline monohydrate 100 mg Capsule 100 mg PO BID Qty: 1 0RF bisacodyl 10 mg Suppository 10 mg GA .PRN X 1 PRN (Reason: Constipation) Qty: 1 0RF pantoprazole 40 mg Tablet,Delayed Release (Dr/Ec) 40 mg PO DAILY Qty: 1 0RF ferrous sulfate [FeroSul] 325 mg (65 mg iron) Tablet 325 mg PO DAILY@1200 Qty: 1 0RF nystatin [Nyamyc] 100,000 unit/gram Powder 1 applic topical QHS Qty: 1 0RF Protocol: *Topical Application Instructions APPLICATION INSTRUCTIONS: groin alum-mag hydroxide-simeth [Mag-Al Plus Extra Strength] 400-400-40 mg/5 mL Suspension 15 ml PO Q6H PRN PRN (Reason: HEARTBURN OR INDIGESTION) Qty: 1 0RF sodium chloride 0.9 % (flush) [Normal Saline Flush] Syringe 10 - 40 ml IV UD PRN (Reason: Port access or dressing change) Qty: 1 0RF acidophilus-pectin, citrus 25 million cell -100 mg Tablet 1 tab PO TIDCM Qty: 1 0RF heparin, porcine (PF) 10 unit/mL Syringe 50 units IV QHS Qty: 1 0RF venlafaxine 75 mg Capsule,Extended Release 24hr 75 mg PO DAILY Qty: 1 0RF gabapentin 100 mg capsule 100 mg PO TIDCM Qty: 1 0RF Ampicillin-Sulbactam 3 g IVPB Q6H Qty: 1 0RF Cubicin 900 mg IVPB DINNER Qty: 1 0RF Continued Cubicin 900 mg IVPB DINNER Rx Instructions: Q24 HOURS amlodipine 10 mg PO/SL DAILY atorvastatin 40 mg PO/SL QHS polyethylene glycol 3350 17 g PO/SL DAILY senna-docusate sodium 8.6 - 50 mg PO/SL BID Discontinued allopurinol 100 mg tablet 100 mg PO DAILY Label Comments: TAKE 1 TABLET BY MOUTH EVERY DAY FOR 90 DAYS allopurinol 300 mg tablet 300 mg PO DAILY Label Comments: TAKE 1 TABLET BY MOUTH EVERY DAY FOR 90 DAYS Acetaminophen Pain Relief tablet 500 mg PO/SL Q8H PRN PRN (Reason: Pain) Rx Instructions: GIVE 2 TABLETS FOR A PAIN SCALE OF 1-10 enalapril maleate 20 mg tablet 20 mg PO DAILY Label Comments: TAKE 1 TABLET BY MOUTH EVERY DAY FOR 90 DAYS clopidogrel 75 mg tablet 75 mg PO DAILY Label Comments: TAKE 1 TABLET BY MOUTH EVERY DAY folic acid 1 mg tablet 1 mg PO DAILY Label Comments: TAKE 1 TABLET BY MOUTH TWICE A DAY FOR 90 DAYS hydroxychloroquine 200 mg tablet 200 mg PO BID Label Comments: TAKE 1 TABLET BY MOUTH EVERY DAY FOR 30 DAYS albuterol sulfate 90 mcg/actuation HFA aerosol inhaler 90 mcg INHALATION Q6H PRN PRN (Reason: Shortness Of Breath Or Wheezing) Label Comments: USE 1 PUFF INTO THE LUNGS EVERY 6 HOURS NEEDED FOR SHORTNESS OF BREATH oxycodone 5 mg tablet 5 mg PO Q6H PRN PRN (Reason: PAIN) Label Comments: TAKE 1 TABLET BY MOUTH EVERY 6 HOURS NEEDED FOR PAIN FOR UP TO 3 DAYS Rx Instructions: PAIN SCALE 4-10 fenofibrate 54 mg tablet 54 mg PO DAILY Label Comments: TAKE 1 TABLET BY MOUTH EVERY DAY FOR 90 DAYS baclofen 5 mg tablet 5 mg PO 2XD PRN (Reason: MUSCLE CRAMPS) Label Comments: 1-2 TABLETS NEEDED ORALLY TWICE A DAY NEEDED MUSCLE CRAMPS 3 DAYS ampicillin-sulbactam 3 g IVPB Q6H aspirin 81 mg PO/SL DAILY Referrals / Follow Up: [facility] first floor registration [Other] - 09/14/22 2:00 pm [facility] [Other] (have PCP give you a referral for rheumatoid arthritis ) Sleep LAB [Other] Morgan, Infectious Disease [Other] - 09/16/22 2:00 pm Discogram [Other] - 09/09/22 12:00 pm (hold Eliquis for 6 doses starting on 09/07 ) Padmini Russo MD [Med Staff - Active Staff] - 09/14/22 9:30 am Eleazar Hernandez DO [Primary Care Provider] - 09/18/22 2:30 pm Trevor Christensen MD [Med Staff - Active Staff] - 09/16/22 11:00 am Franc Donohue MD [Med Staff - Active Staff] - 09/17/22 2:30 pm Faheem Vickers MD [Non-Staff -Ordering Privileges] - Disposition Disposition (needs filled in before D/C Order can be placed): Home, Self Care Charges/Coding Visit Charges Inpatient E&M: 59257 Disch Hosp >30min
[2022-09-02 13:45] LABS: Lactic Acid 0.9 mmol/L (0.4-1.9)
--- NOTE | 2022-09-02 13:53 | PCM.PN.ID ---
Physical Exam Narrative Feeling ok, some lower back pain, no fever, no dyspnea, no n/v/d, no body aches. Const alert and no apparent distress Constitutional Narrative: mild confusion Neck supple Resp normal air movement and clear to auscultation bilaterally Cardio regular rate and regular rhythm GI soft to palpation, non-tender and non-distended GI Narrative: mild lumbar pain to palpation Extremity General Extremity: edema Skin no rashes or lesions noted ID ID: Route of nutrition/ use of supplements: [] Nutritional Intake: [] IV Site: [] [place]wood Catheter: [] Assessment & Plan Assessment/Plan (1) Aortic valve vegetation: (2) Stroke/cerebrovascular accident: (3) Endocarditis: PLAN: Reviewed records from [place] [facility]. ID was Dr. Zane Morgan. Bcxs neg. Neg for bartonella or coxiella. Chlamydia pneumoniae IgG strongly (+) at 1:512, but IgM neg. Given how high the titer is and otherwise negative workup, plan was for dapto/unasyn with stop date 08/25/22, and 07/29 added doxycycline. Dapto/unasyn extended an additional two weeks by Dr. Morgan. 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 Covered by unasyn. Developed new lower back pain, rising ESR. CT showed lumbar osteo/discitis. Plan is for aspiration/biopsy with path and aerobic/anaerobic/fungal/AFB cxs sent. Now today with new NYDIA. Recommend renal u/s. Will adjust abx dosage for dapto/unasyn. Transfer pending to hospital. Will follow, d/w Dr. Plata
[2022-09-02 14:17] VITALS: BMI 41.0
--- NOTE | 2022-09-02 14:18 | NURSING ---
discharged to PCU. report called to Effie FLORES
== END 2022-09-02 14:15 | disposition short-term general hospital (02) | DRG 56 ==
PROVIDERS: Admitting Provider Internal Medicine; PCP Family Medicine; Visit Provider Internal Medicine
DX: I69.354 Hemiplegia and hemiparesis following cerebral infarction affecting left non-dominant side (principal); I33.0 Acute and subacute infective endocarditis; I60.9 Nontraumatic subarachnoid hemorrhage, unspecified; R65.20 Severe sepsis without septic shock; A41.9 Sepsis, unspecified organism; M46.20 Osteomyelitis of vertebra, site unspecified; N17.9 Acute kidney failure, unspecified; Z68.41 Body mass index [BMI] 40.0-44.9, adult; Q21.12 Patent foramen ovale; I82.461 Acute embolism and thrombosis of right calf muscular vein; M05.30 Rheumatoid heart disease with rheumatoid arthritis of unspecified site; I73.9 Peripheral vascular disease, unspecified; I10 Essential (primary) hypertension; G47.33 Obstructive sleep apnea (adult) (pediatric); K21.9 Gastro-esophageal reflux disease without esophagitis; D50.9 Iron deficiency anemia, unspecified; M10.9 Gout, unspecified; I69.328 Other speech and language deficits following cerebral infarction; Z79.02 Long term (current) use of antithrombotics/antiplatelets; R73.03 Prediabetes; Z95.5 Presence of coronary angioplasty implant and graft; Z87.891 Personal history of nicotine dependence; Z79.82 Long term (current) use of aspirin; E66.9 Obesity, unspecified; Z79.899 Other long term (current) drug therapy; B35.4 Tinea corporis; F32.A Depression, unspecified; R29.810 Facial weakness
CPT/HCPCS: 36415; 37191; 70110; 71045; 71046; 71275; 72110; 72132; 73660; 76937; 80048; 80053; 82274; 82550; 82565; 82728; 83540; 83550; 83605; 83735; 83880; 84100; 84145; 84550; 85025; 85379; 85384; 85610; 85652; 85730; 86140; 87040; 92507; 92523; 93005; 93306; 93971; 94640; 94668; 94762; 97110; 97112; 97116; 97129; 97162; 97166; 97530; 97535; 97802; 99152; 99153; J0878; J2997; J7030; J7050; Q9957; Q9967; A4216; C1769; C1880; C8929; J0295; J2916; J3490

== ENCOUNTER 2022-09-02 14:53 | Inpatient (IN) | payer OTHER, SELFPAY ==
[2022-09-02 14:31] VITALS: BP 130/50; PULSE 78; RESP 16; TEMP 36.7; O2SAT 93; BMI 41.4
--- NOTE | 2022-09-02 15:11 | HP.PCM.HOS_ITS ---
[facility] - [facility] Date of Admission: 09/02/22 Date of Service: 09/02/22 Chief Complaint: back pain HPI Narrative PHILIP DU, is a 57 M who who presented with left-sided weakness to [facility] on July 11. Patient was transferred to [facility] for evaluation for the stroke. Patient was found to have a evidence of a right M1 and M2 stroke as well as left temporal lobe and occipital lobe and left cerebellum. Patient was found to have PFO on TTE. DEYVI showed severe aortic regurgitation with vegetation on the aortic valve. Blood cultures, however were negative. Patient was started on antibiotics with ampicillin/sulbactam and daptomycin. Patient was transferred to [facility] rehab on July 23. Patient did have apparently subarachnoid hemorrhage and had subsequent been started on apixaban. While in rehab, patient was found to have an acute rate DVT in the right gastroc vein. Patient had IVC filter placed on July 29. Patient was found to have heme positive stools while he was there. While he was there, patient was monitored with ESR and CRP's. Patient's CRP went up to 88 on August 31 and sed rate had been going up as well. Patient while he was there, did conclude his antibiotics of daptomycin, ampicillin/sulbactam and doxycycline but the infectious disease doctor requested 2 additional weeks of antibiotics. Patient did have worsening back pain and underwent a CT. CAT scan showed heterogenous appearance of L3 and L4 and suspected to be secondary to vertebral osteomyelitis. Echo performed the same day showed aortic regurgitation but no vegetations were identified. The in fectious disease doctor at [facility] did request a vertebral bone culture. On the , patient became more confused. Patient was noted to have acute kidney injury where his creatinine was 4.26 and was 0.96 on the . Patient was excepted at [facility] where he had had his previous work-up but they did not have readily available beds. Dr. Plata reached out, due to his declining status, and no readily available beds at [facility], it was agreed that the patient be best treated and managed on the inpatient side until he could be safely transferred. [facility] Medical History Chronic back pain Class 3 obesity Family history of heart disease Former smoker GERD (gastroesophageal reflux disease) Gout Hearing loss, left Hypertension Peripheral vascular disease PFO (patent foramen ovale) Presence of arterial stent QT prolongation Rheumatoid arthritis Stroke/cerebrovascular accident Home Medications Cubicin 900 mg IVPB DINNER ATB 07/23/22 [History Last Taken 07/23/22 17:52] amlodipine 10 mg PO/SL DAILY HTN 07/23/22 [History Last Taken 07/23/22] atorvastatin 40 mg PO/SL QHS HIGH CHOLESTEROL 07/23/22 [History Last Taken 07/22/22 21:22] polyethylene glycol 3350 17 g PO/SL DAILY CONSTIPATION 07/23/22 [History Last Taken 07/22/22 08:10] senna-docusate sodium 8.6 - 50 mg PO/SL BID STOOL SOFTENER 07/23/22 [History Last Taken 07/22/22] Cubicin 900 mg IVPB DINNER #1 BAG 09/02/22 [Rx Last Taken Unknown] acidophilus 25 million cell-pectin, citrus 100 mg tablet 1 tab PO TIDCM #1 TAB 09/02/22 [Rx Last Taken Unknown] aluminum-mag hydroxide-simethicone 400 mg-400 mg-40 mg/5 mL oral susp (Mag-Al Plus Extra Strength) 15 ml PO Q6H PRN PRN HEARTBURN OR INDIGESTION #1 mL 09/02/22 [Rx Last Taken Unknown] ampicillin-sulbactam 3 g IVPB Q6H #1 BAG 09/02/22 [Rx Last Taken Unknown] ascorbic acid (vitamin C) 500 mg tablet 1,000 mg PO 1200 #1 TAB 09/02/22 [Rx Last Taken Unknown] baclofen 10 mg tablet 5 mg PO BID #1 TAB 09/02/22 [Rx Last Taken Unknown] bisacodyl 10 mg rectal suppository 10 mg [place] .PRN X 1 PRN Constipation #1 ea 09/02/22 [Rx Last Taken Unknown] doxycycline monohydrate 100 mg capsule 100 mg PO BID #1 cap 09/02/22 [Rx Last Taken Unknown] fenofibrate nanocrystallized 48 mg tablet 48 mg PO DAILYCM #1 TAB 09/02/22 [Rx Last Taken Unknown] ferrous sulfate 325 mg (65 mg iron) tablet (FeroSul) 325 mg PO DAILY@1200 #1 TAB 09/02/22 [Rx Last Taken Unknown] gabapentin 100 mg capsule 100 mg PO TIDCM #1 cap 09/02/22 [Rx Last Taken Unknown] heparin, porcine (PF) 10 unit/mL intravenous syringe 50 units (5 mL) IV QHS #1 mL 09/02/22 [Rx Last Taken Unknown] nystatin 100,000 unit/gram topical powder (Nyamyc) 1 applic topical QHS #1 g 09/02/22 [Rx Last Taken Unknown] pantoprazole 40 mg tablet,delayed release 40 mg PO DAILY #1 TAB 09/02/22 [Rx Last Taken Unknown] sodium chloride 0.9 % (flush) (Normal Saline Flush 0.9 % injection syringe) 10 - 40 ml IV UD PRN Port access or dressing change #1 mL 09/02/22 [Rx Last Taken Unknown] venlafaxine 75 mg capsule,extended release 24 hr 75 mg PO DAILY #1 cap 09/02/22 [Rx Last Taken Unknown] Allergy/AdvReac Type Severity Reaction Status Date / Time cephalexin Allergy Shortness Verified 07/23/22 20:24 of breath no significant family history Surgical History H/O hand surgery History of bowel resection Hx of total knee arthroplasty Postprocedural state 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 Social History Smoking Status: Former smoker ROS ROS Narrative Back pain. No shortness of breath. No chest pain. No fever or chills. All review of systems were negative except as mentioned above in the history of present illness and the other review of systems. Vital Signs Vital Signs Vital Signs: 09/02/22 14:31 Temperature 36.7 C Temperature Source Oral Pulse Rate 78 Respiratory Rate 16 Blood Pressure 130/50 H Blood Pressure Mean 76 Blood Pressure Source Monitor Blood Pressure Position Sitting Blood Pressure Location Right Arm Pulse Ox 93 Oxygen Delivery Method Room Air Weight Weight: 150.5 kg Body Mass Index (BMI) 41.4 Physical Exam Const alert and no apparent distress Constitutional Narrative: Slightly groggy HEENT normocephalic and head/scalp atraumatic HEENT Narrative: No subconjunctival hemorrhages Neck no lymphadenopathy Resp normal respiratory effort, no retractions, no use of accessory muscles and clear to auscultation bilaterally Cardio regular rate, regular rhythm, S1 normal heart sound and S2 normal heart sound GI normal to inspection, nondistended, normoactive bowel sounds, soft to palpation, non-tender and non-distended Extremity normal to inspection Neuro oriented x3 and moves all extremities Sensorium / Orientation: awake Psych Psych Narrative: Flat affect Assessment & Plan Assessment/Plan (1) Acute renal failure: PLAN: Unclear etiology at this point IV fluids Check urine studies Avoid nephrotoxic agents for now Check kidney ultrasound (2) Vertebral osteomyelitis, acute: PLAN: Suspected, particular given the patient's recent endocarditis Patient will need a bone biopsy to verify Patient to continue with the daptomycin, Unasyn and doxycycline. Patient developed acute back pain. Will utilize pain medication cautiously. Patient has been accepted by [facility]. Awaiting on transfer. (3) Anemia: PLAN: Patient has a history of heme positive stools. Had been on apixaban but that was discontinued due to anemia Check iron studies, ferritin, B12, folate and TSH (4) Encephalopathy acute: PLAN: Likely combination of gabapentin, baclofen and acute kidney injury. We will avoid some of the potentiating medications Monitor. If worse, consider imaging his head. (5) Endocarditis: PLAN: Likely the nidus of potential osteomyelitis Antibiotics as above Echocardiogram on August 31 showed EF of 60%. Mild concentric left ventricular hypertrophy, moderate 2+ aortic valve insufficiency. PLAN: Plan Chronic conditions * CVA: This may be septic emboli. * PFO: Follow-up with cardiology. Anticoagulation has been held in light of the anemia * GERD: Continue PPI * PAD: Status post angioplasty and stent to the right popliteal artery on June 29, 2022 * Rheumatoid arthritis: Follow-up with rheumatology as outpatient. * Gout * CATHY: Outpatient polysomnogram * Subarachnoid hemorrhage status post thrombolytic treatment. Has been okayed to resume anticoagulation. * DVT: Status post IVC filter. Patient need to have that removed and next 5 to 6 months. VTE prophylaxis with low molecular weight heparin. Charges/Coding Visit Charges Inpatient E&M: 76709 Init Hosp L3
--- NOTE | 2022-09-02 15:41 | US_ITS ---
STUDY: RENAL ULTRASOUND - COMPLETE REASON FOR EXAM: Male, 57 years old. Acute kidney injury. TECHNIQUE: Ultrasound evaluation of the kidneys was performed with real-time and static xie-scale imaging. COMPARISON: None. FINDINGS: RIGHT KIDNEY: Normal location of the right kidney, which is enlarged in size. The right kidney measures 14.5 cm. There is a normal cortex of the right kidney. The renal cortex measures 2. cm. There is no right renal mass or cyst. There are no right renal calculi. There is no right hydronephrosis. DISTAL RIGHT URETER: There is non-visualization of the distal right ureter. There is no demonstrated right ureterovesical junction calculus. There is no demonstrated right ureteral jet. LEFT KIDNEY: Normal location of the left kidney, which is enlarged in size. The left kidney measures 13.3 cm. There is a normal cortex of the left kidney. Prominent column of Robert. The renal cortex measures 2.1 cm. There is no left renal mass or cyst. There are no left renal calculi. There is no left hydronephrosis. DISTAL LEFT URETER: There is non-visualization of the distal left ureter. There is no demonstrated left ureterovesical junction calculus. There is no demonstrated left ureteral jet. BLADDER: The distended urinary bladder has a volume of 82 ml. There is a normal wall thickness of the distended urinary bladder. There is no demonstrated mass within the urinary bladder. There are no demonstrated bladder calculi. US/Kidney and Bladder IMPRESSION: Large bilateral kidneys. Normal urinary bladder. Electronically Signed: Momo Castillo DO at 17:14 EDT ,
[2022-09-02] MEDS: 0.9% Normal Saline 1,000 ML 150 ML IV (16:03)
[2022-09-02 17:08] LABS: Ferritin 266 ng/mL (26-388); Iron 16 ug/dL (65-175); Iron Binding Capacity,Total 149 ug/dL (250-450); PERCENT IRON SATURATION 10.7 % (15.0-55.0); Thyroid Stim Hormone (TSH) 0.82 uIU/mL (0.358-3.74)
[2022-09-02 17:22] LABS: Vitamin B12 267 pg/mL (211-911)
--- NOTE | 2022-09-02 18:50 | PCM.DC.SUM ---
Providers Date of Admission: 09/02/22 Primary Care Physician: Dr. Eleazar Hernandez, Reason For Visit: CVA Diagnosis Discharge Diagnosis (1) Acute renal failure: Status: Acute Code(s): N17.9 - Acute kidney failure, unspecified Plan: Unclear etiology at this point IV fluids Check urine studies Avoid nephrotoxic agents for now Check kidney ultrasound (2) Vertebral osteomyelitis, acute: Status: Suspected Code(s): M46.20 - Osteomyelitis of vertebra, site unspecified Plan: Suspected, particular given the patient's recent endocarditis Patient will need a bone biopsy to verify Patient to continue with the daptomycin, Unasyn and doxycycline. Patient developed acute back pain. Will utilize pain medication cautiously. Patient has been accepted by [facility]. Patient will be transferred today. (3) Anemia: Status: Acute Code(s): D64.9 - Anemia, unspecified Plan: Patient has a history of heme positive stools. Had been on apixaban but that was discontinued due to anemia Check iron studies, ferritin, B12, folate and TSH (4) Encephalopathy acute: Status: Acute Code(s): G93.40 - Encephalopathy, unspecified Plan: Likely combination of gabapentin, baclofen and acute kidney injury. We will avoid some of the potentiating medications Monitor. If worse, consider imaging his head. (5) Endocarditis: Status: Acute Code(s): I38 - Endocarditis, valve unspecified Plan: Likely the nidus of potential osteomyelitis Antibiotics as above Echocardiogram on August 31 showed EF of 60%. Mild concentric left ventricular hypertrophy, moderate 2+ aortic valve insufficiency. Plan Chronic conditions CVA: This may be septic emboli. PFO: Follow-up with cardiology. Anticoagulation has been held in light of the anemia GERD: Continue PPI PAD: Status post angioplasty and stent to the right popliteal artery on June 29, 2022 Rheumatoid arthritis: Follow-up with rheumatology as outpatient. Gout CATHY: Outpatient polysomnogram Subarachnoid hemorrhage status post thrombolytic treatment. Has been okayed to resume anticoagulation. DVT: Status post IVC filter. Patient need to have that removed and next 5 to 6 months. VTE prophylaxis with low molecular weight heparin. Medications at Discharge Home Medications Cubicin 900 mg IVPB DINNER ATB 07/23/22 amlodipine 10 mg PO/SL DAILY HTN 07/23/22 atorvastatin 40 mg PO/SL QHS HIGH CHOLESTEROL 07/23/22 polyethylene glycol 3350 17 g PO/SL DAILY CONSTIPATION 07/23/22 senna-docusate sodium 8.6 - 50 mg PO/SL BID STOOL SOFTENER 07/23/22 Cubicin 900 mg IVPB DINNER #1 BAG 09/02/22 acidophilus 25 million cell-pectin, citrus 100 mg tablet 1 tab PO TIDCM #1 TAB 09/02/22 aluminum-mag hydroxide-simethicone 400 mg-400 mg-40 mg/5 mL oral susp (Mag-Al Plus Extra Strength) 15 ml PO Q6H PRN PRN HEARTBURN OR INDIGESTION #1 mL 09/02/22 ampicillin-sulbactam 3 g IVPB Q6H #1 BAG 09/02/22 ascorbic acid (vitamin C) 500 mg tablet 1,000 mg PO 1200 #1 TAB 09/02/22 baclofen 10 mg tablet 5 mg PO BID #1 TAB 09/02/22 bisacodyl 10 mg rectal suppository 10 mg [place] .PRN X 1 PRN Constipation #1 ea 09/02/22 doxycycline monohydrate 100 mg capsule 100 mg PO BID #1 cap 09/02/22 fenofibrate nanocrystallized 48 mg tablet 48 mg PO DAILYCM #1 TAB 09/02/22 ferrous sulfate 325 mg (65 mg iron) tablet (FeroSul) 325 mg PO DAILY@1200 #1 TAB 09/02/22 gabapentin 100 mg capsule 100 mg PO TIDCM #1 cap 09/02/22 heparin, porcine (PF) 10 unit/mL intravenous syringe 50 units (5 mL) IV QHS #1 mL 09/02/22 nystatin 100,000 unit/gram topical powder (Nyamyc) 1 applic topical QHS #1 g 09/02/22 pantoprazole 40 mg tablet,delayed release 40 mg PO DAILY #1 TAB 09/02/22 sodium chloride 0.9 % (flush) (Normal Saline Flush 0.9 % injection syringe) 10 - 40 ml IV UD PRN Port access or dressing change #1 mL 09/02/22 venlafaxine 75 mg capsule,extended release 24 hr 75 mg PO DAILY #1 cap 09/02/22 Hospital Course Operations None Procedures None Summary of Care Provided Minutes Spent on Discharge: 55 Weight / BMI Weight Weight: 150.5 kg Body Mass Index (BMI) 41.4 ABG / Lab / Microbiology Data Laboratory: Laboratory Results - last 24 hr 09/02/22 16:00: Iron 16 L, TIBC 149 L, Iron Saturation 10.7 L, Ferritin 266, Folate 49.80, TSH 0.82 09/02/22 16:00: Vitamin B12 267 Radiography Diagnostic Testing: Radiology Impression Renal Ultrasound 09/02/22 15:41 IMPRESSION: Large bilateral kidneys. Normal urinary bladder. Electronically Signed: Momo Castillo DO at 17:14 EDT Reading Location ID and State: [address] [place] [address] Tel [phone], Service support , Meaningful Use Info Meaningful Use Diagnoses (Choose all that apply): None applicable Discharge Plan Admission Admit Date/Time: 09/02/22 14:53 Attending Provider: Franc James Primary Care Provider: Eleazar Hernandez Discharge Orders/Prescriptions Prescriptions: No Action Cubicin 900 mg IVPB DINNER Rx Instructions: Q24 HOURS amlodipine 10 mg PO/SL DAILY atorvastatin 40 mg PO/SL QHS polyethylene glycol 3350 17 g PO/SL DAILY senna-docusate sodium 8.6 - 50 mg PO/SL BID baclofen 10 mg Tablet 5 mg PO BID Qty: 1 0RF fenofibrate nanocrystallized 48 mg Tablet 48 mg PO DAILYCM Qty: 1 0RF ascorbic acid (vitamin C) 500 mg Tablet 1,000 mg PO 1200 Qty: 1 0RF doxycycline monohydrate 100 mg Capsule 100 mg PO BID Qty: 1 0RF bisacodyl 10 mg Suppository 10 mg [place] .PRN X 1 PRN (Reason: Constipation) Qty: 1 0RF pantoprazole 40 mg Tablet,Delayed Release (Dr/Ec) 40 mg PO DAILY Qty: 1 0RF ferrous sulfate [FeroSul] 325 mg (65 mg iron) Tablet 325 mg PO DAILY@1200 Qty: 1 0RF nystatin [Nyamyc] 100,000 unit/gram Powder 1 applic topical QHS Qty: 1 0RF Protocol: *Topical Application Instructions APPLICATION INSTRUCTIONS: groin alum-mag hydroxide-simeth [Mag-Al Plus Extra Strength] 400-400-40 mg/5 mL Suspension 15 ml PO Q6H PRN PRN (Reason: HEARTBURN OR INDIGESTION) Qty: 1 0RF sodium chloride 0.9 % (flush) [Normal Saline Flush] Syringe 10 - 40 ml IV UD PRN (Reason: Port access or dressing change) Qty: 1 0RF acidophilus-pectin, citrus 25 million cell -100 mg Tablet 1 tab PO TIDCM Qty: 1 0RF heparin, porcine (PF) 10 unit/mL Syringe 50 units IV QHS Qty: 1 0RF venlafaxine 75 mg Capsule,Extended Release 24hr 75 mg PO DAILY Qty: 1 0RF gabapentin 100 mg capsule 100 mg PO TIDCM Qty: 1 0RF Ampicillin-Sulbactam 3 g IVPB Q6H Qty: 1 0RF Cubicin 900 mg IVPB DINNER Qty: 1 0RF Referrals / Follow Up: Eleazar Hernandez DO [Primary Care Provider] - Disposition Discharge Orders: Discharge Patient (Routine); Ordered 09/02/22 Ordered By: Dr. Franc James Charges/Coding Visit Charges OBSV E&M: 85318 Observ/hosp same date L2
[2022-09-02 19:02] VITALS: BP 121/71; PULSE 81; RESP 16; TEMP 36.4; O2SAT 93
--- NOTE | 2022-09-02 19:33 | NURSING ---
FLUIDS CONTINUED UPON TRANSFER TO [facility].
== END 2022-09-02 20:00 | disposition short-term general hospital (02) | DRG 545 ==
PROVIDERS: PCP Family Medicine
DX: M45.6 Ankylosing spondylitis lumbar region (principal); G92.8 Other toxic encephalopathy; N17.9 Acute kidney failure, unspecified; Q21.12 Patent foramen ovale; I73.9 Peripheral vascular disease, unspecified; M06.9 Rheumatoid arthritis, unspecified; G47.33 Obstructive sleep apnea (adult) (pediatric); D64.9 Anemia, unspecified; I35.1 Nonrheumatic aortic (valve) insufficiency; K21.9 Gastro-esophageal reflux disease without esophagitis; M10.9 Gout, unspecified; T42.6X5A Adverse effect of other antiepileptic and sedative-hypnotic drugs, initial encounter; T42.8X5A Adverse effect of antiparkinsonism drugs and other central muscle-tone depressants, initial encounter; H91.92 Unspecified hearing loss, left ear; Z95.5 Presence of coronary angioplasty implant and graft; Z79.01 Long term (current) use of anticoagulants; Z79.2 Long term (current) use of antibiotics; Z79.899 Other long term (current) drug therapy; Z87.891 Personal history of nicotine dependence; Z86.73 Personal history of transient ischemic attack (TIA), and cerebral infarction without residual deficits; Z86.79 Personal history of other diseases of the circulatory system; Z86.718 Personal history of other venous thrombosis and embolism
CPT/HCPCS: 36415; 76770; 82607; 82728; 82746; 83540; 83550; 84443; J7030

== ENCOUNTER 2022-09-15 15:16 | Inpatient (IN) | payer OTHER, MEDICAID, SELFPAY ==
[2022-09-15 15:42] VITALS: BMI 38.4
[2022-09-15 16:30] VITALS: BP 151/53; PULSE 75; RESP 18; TEMP 36.8; O2SAT 95
--- NOTE | 2022-09-15 16:32 | ECHOL_ITS ---
Reason For Study: Follow up Endocarditis Procedure This was a limited 2D transthoracic echocardiogram. Did not use Definity due to recent full echo with Definity on 08/31/2022. Exam performed portable in patient room. Left Ventricle Normal LV size. Moderate concentric left ventricular hypertrophy. Left ventricular systolic function is normal. The estimated ejection fraction is 60 %. No regional wall motion abnormalities noted. Right Ventricle Normal RV size. Normal systolic function. Mitral Valve Bileaflet diffuse mitral valve thickening. Mild (1+) eccentric mitral valve insufficiency. Aortic Valve Trisinus/trileaflet aortic valve. Mild focal aortic valve thickening. Holo diastolic aortic flow reversal. Severe (4+) aortic valve insufficiency. Pericardium/Pleural No pericardial effusion. MMode/2D Measurements & Calculations LVIDd: 6.3 cm IVSd: 1.5 cm LVIDs: 4.2 cm LVPWd: 1.4 cm LVAd ap4: 48.1 cm2 FS: 34.2 % LVLd ap4: 9.7 cm EDV(MOD-sp4): 195.8 ml EDV(sp4-el): 202.3 ml LVAs ap4: 25.6 cm2 LVLs ap4: 7.7 cm ESV(MOD-sp4): 70.6 ml ESV(sp4-el): 72.2 ml EF(MOD-sp4): 63.9 % EF(sp4-el): 64.3 % SV(MOD-sp4): 125.1 ml SV(sp4-el): 130.1 ml Doppler Measurements & Calculations Ao V2 max: 252.5 cm/sec AI max parul: 438.1 cm/sec Ao max P.5 mmHg AI max P.9 mmHg Ao V2 mean: 162.4 cm/sec Ao mean P.0 mmHg AI dec slope: 547.9 cm/sec2 Ao V2 VTI: 44.4 cm AI P1/2t: 234.2 msec ECHO/Echo, Limited Study Interpretation Summary Normal LV size. Left ventricular systolic function is normal. The estimated ejection fraction is 60 %. Mild focal aortic valve thickening. Holo diastolic aortic flow reversal. Severe (4+) aortic valve insufficiency. Moderate concentric left ventricular hypertrophy. Ordering Physician: Sylvie Plata Referring Physician: Eleazar Hernandez Performed By: Cassandra Malloy, RDMONA, RVT
--- NOTE | 2022-09-15 17:07 | PCM.HP.STD ---
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 He was discharged to [facility] on 09/02/2022 with septic shock with acute renal failure and acute respiratory failure. He was diagnosed with pneumonia and was initially placed on Zosyn and vancomycin. Respiratory panel, COVID 19, streptococcal pneumoniae antigen and MRSA swab were negative. We did not receive a report for sputum culture so I assuming sputum was not collected or had no growth. While at [facility] he had an EGD that was negative per his and he also had a colonoscopy that showed internal and external hemorrhoids and a single polyp in the transverse colon. Because the CT of the LS spine showed heterogenous marrow changes he had a bone bx of L4 done by IR. Results of the L4 vertebral body core biopsy showed extensive crush artifact of the cellular marrow space elements which precluded detailed evaluation. There was no definite evidence of keratin positive cells within the marrow space elements. It is unknown at this time whether the heterogeneous appearance of L3 and L4 is due to osteomyelitis or some other process. The bone culture is still pending at the time of his transfer. Progress notes say he had a DEYVI that was not significantly changed from the DEYVI he had done at [facility] prior to the admission to rehab on 07/24/22. We did not receive the report of the DEYVI and it has been requested. His tells me that she was told he still has a vegetation on the AV. A TTE done at [facility] 2 days prior to his transfer for septic shock showed no vegetation with 1-2+ aortic regurgitation and a normal EF. 2 blood cultures drawn on 08/31/2022 at [facility] had no growth. Blood cultures drawn on the day he was transferred to [facility] had no growth in 5 days and progress notes from [facility] state he had no growth on the blood cultures done there. Fungal and AFB cultures from [facility] are pending as well. Al was transferred back to acute rehab at [facility] on 09/15/22 for 3 hours of therapy daily to restore function/independence at his prior level. He lost 25 pounds in the 2 weeks he was a [facility] and is very weak. He is to continue on Dapto and Unasyn until 10/08/22. At presentation to rehab Al c/o urinary frequency for the preceding 2 days and this is new for him. He denied dysuria. No night sweats and no shaking chills. He is c/o 10/10 low back pain and has not been sleeping at night. He has only been getting 5 mg of Oxycodone PRN TID. He has known low back degenerative disease and he follows with a doctor at the [facility] and was anticipating having Back surgery in the fall. Prior to transfer he was taking Oxycontin 10 mg at HS and 10 mg of Oxycodone q 4H for breakthrough pain. He does not like to ask for PRN medication and usually waits until the pain is severe. [facility] Medical History (Updated 09/16/22 @ 11:[address] Sylvie Plata, ) Abnormal LFTs Aortic valve regurgitation Chronic back pain Class 3 obesity Colon polyp COPD (chronic obstructive pulmonary disease) DVT of lower limb, acute Dysarthria Elevated TSH Encephalopathy acute Endocarditis Family history of heart disease Former smoker GERD (gastroesophageal reflux disease) Gout HCAP (healthcare-associated pneumonia) Hearing loss, left Heme positive stool Hypertension Hyperuricemia Hypoalbuminemia Iron deficiency Left atrial enlargement Leukocytosis Normocytic hypochromic anemia Peripheral vascular disease PFO (patent foramen ovale) Physical debility Prediabetes Presence of arterial stent QT prolongation Rheumatoid arthritis SAH (subarachnoid hemorrhage) Septic shock Stroke/cerebrovascular accident Superficial thrombophlebitis Home Medications Cubicin 950 mg IVPB Q24H ATB 07/23/22 [History Last Taken 07/23/22 17:52] amlodipine 10 mg PO/SL DAILY HTN 07/23/22 [History Last Taken 07/23/22] atorvastatin 40 mg PO/SL QHS HIGH CHOLESTEROL 07/23/22 [History Last Taken 07/22/22 21:22] polyethylene glycol 3350 17 g PO/SL QHS CONSTIPATION 07/23/22 [History Last Taken 07/22/22 08:10] aluminum-mag hydroxide-simethicone 400 mg-400 mg-40 mg/5 mL oral susp (Mag-Al Plus Extra Strength) 15 ml PO Q6H PRN PRN HEARTBURN OR INDIGESTION #1 mL 09/02/22 [Rx Last Taken Unknown] acetaminophen 325 mg tablet 650 mg PO Q6H PRN pain/fever 09/15/22 [History Last Taken Unknown] acidophilus 25 million cell-pectin, citrus 100 mg tablet 1 tab PO TIDCM probiotic 09/15/22 [History Last Taken Unknown] ampicillin-sulbactam 3 g IVPB Q6H ATB 09/15/22 [History Last Taken 09/15/22 12:00] apixaban 5 mg tablet (Eliquis) 5 mg PO BID Check with primary doctor 09/15/22 [History Last Taken Unknown] ascorbic acid (vitamin C) 500 mg tablet 1,000 mg PO 1200 supplement 09/15/22 [History Last Taken Unknown] baclofen 10 mg tablet 5 mg PO BID Check with primary doctor 09/15/22 [History Last Taken Unknown] clopidogrel 75 mg tablet (Plavix) 75 mg PO DAILY Check with primary doctor 09/15/22 [History Last Taken Unknown] fenofibrate nanocrystallized 48 mg tablet 48 mg PO DAILYCM Check with primary doctor 09/15/22 [History Last Taken Unknown] ferrous sulfate 325 mg (65 mg iron) tablet (FeroSul) 325 mg PO DAILY@1200 supplement 09/15/22 [History Last Taken Unknown] gabapentin 100 mg capsule 100 mg PO TIDCM pain 09/15/22 [History Last Taken Unknown] heparin, porcine (PF) 10 unit/mL intravenous syringe 50 units IV QHS Check with primary doctor 09/15/22 [History Last Taken Unknown] losartan 50 mg tablet 50 mg PO DAILY BP 09/15/22 [History Last Taken Unknown] nystatin 100,000 unit/gram topical powder (Nyamyc) 1 applic topical BID redness 09/15/22 [History Last Taken Unknown] pantoprazole 40 mg tablet,delayed release 40 mg PO DAILY Check with primary doctor 09/15/22 [History Last Taken Unknown] venlafaxine 75 mg capsule,extended release 24 hr 75 mg PO DAILY Check with primary doctor 09/15/22 [History Last Taken Unknown] Allergy/AdvReac Type Severity Reaction Status Date / Time cephalexin Allergy Shortness Verified 09/09/22 13:21 of breath Surgical History H/O hand surgery History of bowel resection Hx of total knee arthroplasty 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 S/P PICC central line placement Social History household members: spouse Smoking Status: Former smoker ROS Review of Systems ROS Unobtainable: other Details: He is forgetful but, he is unchanged from exam a few days prior to septic shock. No new deficits. ; Denies due to encephalopathy, due to endotracheal tube, due to mental condition or due to mental status Constitutional Constitutional: Reports anorexia, body ache(s), change in weight, difficulty sleeping, weight loss and other Details: Lost 25 lbs while at [facility]. ; Denies chills, fatigue, fever(s), headache(s), night sweats or weakness Eyes Eyes: Denies blurry vision, change in vision, eye pain or loss of vision ENT HEENT: Reports dry mouth and odynophagia; Denies abnormal hearing, dysphagia, headache(s), hearing loss, nasal congestion or sore throat Cardiovascular Cardiovascular: Denies chest pain, dyspnea on exertion, edema, lightheadedness, orthopnea, palpitations, paroxysmal nocturnal dyspnea or syncope Respiratory/Chest Respiratory/Chest: Reports other Details: Was not very active while at [facility] and tells me that he was not getting much PT/OT. He has had MONTOYA in the past. ; Denies cough, dyspnea, shortness of breath at rest, shortness of breath with exertion or wheezing Gastrointestinal Gastrointestinal: Reports constipation, hematochezia and other Details: Has occasional hematochezia due to internal and external hemorrhoids. ; Denies abdominal pain, diarrhea, dyspepsia, hematemesis, nausea or vomiting Genitourinary Genitourinary: Reports urinary urgency and other Details: urinary urgency is new in the past 1-2 days. ; Denies dysuria, hematuria, nocturia, urinary frequency, urinary hesitancy or urinary incontinence Musculoskeletal Musculoskeletal: Reports back pain; Denies joint pain, joint swelling, neck pain, numbness, radiating pain into limb or tingling Integumentary Integumentary: Denies jaundice, non-healing lesions, unusual bruising or wounds Neurologic Neurologic: Reports memory loss and weakness; Denies confusion, disequilibrium, dizziness, focal weakness, headache(s), paresthesias, radicular pain, seizures or tremor(s) Psychiatric Psychiatric: Reports depression; Denies anxiety, homicidal ideation or suicidal ideation Endocrine Endocrinology: Reports change in body appearance and other Details: He lost almost 25 lbs while at [facility] ; Denies polydipsia or polyuria Hematologic/Lymphatic Hematologic/Lymphatic: Reports easy bleeding, easy bruising and other Details: On chronic anticoagulation with Eliquis ; Denies lymphadenopathy Allergic/Immunologic Allergic/Immunologic: Reports other; Denies rhinitis, eczemia or asthma Vital Signs Vital Signs Vital Signs: 09/15/22 16:30 Temperature 98.3 F Temperature Source Temporal Pulse Rate 75 Respiratory Rate 18 Blood Pressure 151/53 H Blood Pressure Mean 85 Blood Pressure Source Monitor Blood Pressure Position Semi-Fowlers Blood Pressure Location Right Arm Pulse Ox 95 Oxygen Delivery Method Room Air Weight Weight: 307 lb 5.19 oz Body Mass Index (BMI) 38.4 Physical Exam Const alert and oriented x3 Constitutional Narrative: appears to have lost a significant amount of weight in the past 2 weeks. Looks to be in pain and had a difficult time lying on his Left side due to pain. General Appearance: cooperative, well kempt and well developed HEENT normocephalic and head/scalp atraumatic HEENT Narrative: Poor dentition. Dry MM. Eyes PERRL, EOMs intact bilaterally, conjunctivae normal and no scleral icterus Eyes Narrative: No visual field cuts. No mattering of the eyelashes and no purulent eye discharge. General Eye: normal appearance of both eyes Neck supple, No nodes and no carotid bruits General: trachea midline Chest Chest: symmetrical chest wall rise Resp normal respiratory effort and clear to auscultation bilaterally Resp Narrative: Diminished in the bases. No wheezes and no rales. Not tachypneic. Effort and Inspection: able to speak in complete sentences Cardio regular rate, regular rhythm, no rub and no gallops Cardio Narrative: He has a soft systolic MM at the second RICS and also a soft diastolic MM which he did not have at the time of transfer to [facility]. Transthoracic echocardiogram on 08/31/2022 showed no vegetations. There was 1-2+ aortic insufficiency and some thickening of the aortic valve. GI normal to inspection, nondistended, normoactive bowel sounds, soft to palpation and non-tender GI Narrative: No guarding with palpation. Bowel sounds are a bit diminished. Back/Spine Back/Spine Narrative: He has pain with palpation of the lower 3 vertebral bodies and with percussion. There is some BL paravertebral muscle spasm. No bruising. Extremity no calf tenderness and no pedal edema Extremity Narrative: The LLE is definitely larger than the R. Had DVT in the RLE when he was initially transferred to acute rehab. This was propagating and he could not be on anticoagulation at that time due to SAH following TNK. He had a IVC filter placed. Both feet are warm and sensation is intact. Skin no wounds, no jaundice and no petechiae Skin Narrative: PICC present in the LUE General Skin Exam: no breakdown Neuro CN's II-XII intact bilaterally and moves all extremities Sensorium / Orientation: awake, alert, oriented to person, oriented to place, oriented to time and other Having some trouble wit short term memory since the multiple ischemic strokes due to emboli from PFO. Psych cooperative, affect normal, speech normal, denies hallucinations, denies homicidal ideation and denies suicidal ideation Psych Narrative: Was somewhat depressed and angry at [facility]. Pain was not adequately controlled he did not feel he was adequately informed. Once he was transferred to the [facility] the he says the nurses only came in when he needed antibiotics. Did not get any significant PT/OT. He stopped eating and he is not sleeping well at night. He is making good eye contact with me and he is alert and appropriate. I am not impressed that he is depressed at this time......mostly frustrated. Appearance: appropriate and well kempt Attitude: calm and engaged Activity / Motor Behavior: appropriate eye contact; Negative for psychomotor agitation Speech: normal speech Results Lab / Micro Data 09/16/22 05:34 09/16/22 05:34 Assessment & Plan Assessment/Plan (1) Physical debility: (2) Septic shock: PLAN: Unknown pathogen. Cultures negative. L4 bone culture for bacteria, fungus and AFB are still pending. (3) HCAP (healthcare-associated pneumonia): PLAN: Treated with Vanco and Zosyn (4) ARF (acute respiratory failure): QUALIFIERS: Respiratory failure complication: hypoxia and hypercapnia Qualified Code(s): J96.01 - Acute respiratory failure with hypoxia; J96.02 - Acute respiratory failure with hypercapnia (5) Acute renal failure: QUALIFIERS: Acute renal failure type: unspecified Qualified Code(s): N17.9 - Acute kidney failure, unspecified PLAN: due to septic shock. (6) Malnutrition: QUALIFIERS: Malnutrition type: protein-calorie malnutrition Protein-calorie malnutrition severity: severe Qualified Code(s): E43 - Unspecified severe protein-calorie malnutrition PLAN: Lost 25 lbs in 13 days (7) Aortic valve endocarditis: PLAN: unknown pathogen (8) Aortic valve regurgitation: QUALIFIERS: Cardiac valve disease etiology: nonrheumatic Qualified Code(s): I35.1 - Nonrheumatic aortic (valve) insufficiency (9) Urinary urgency: (10) Internal and external bleeding hemorrhoids: PLAN: Likely the cause of heme + stool (11) Colon polyp: QUALIFIERS: Colon polyp type: unspecified Colon location: transverse Qualified Code(s): K63.5 - Polyp of colon (12) Stroke/cerebrovascular accident: QUALIFIERS: CVA mechanism: embolism Precerebral and cerebral artery: middle cerebral artery PLAN: July 2022 (13) Anemia: QUALIFIERS: Anemia type: unspecified type Qualified Code(s): D64.9 - Anemia, unspecified (14) Vertebral osteomyelitis, acute: PLAN: This is suspected but, lytic lesions and the lumbar vertebrae could also be due to a non-infectious process, such as MM. (15) 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: (16) PFO (patent foramen ovale): (17) Hypertension: QUALIFIERS: Hypertension type: primary hypertension Qualified Code(s): I10 - Essential (primary) hypertension (18) Hyperuricemia: (19) Gout: QUALIFIERS: Gout site: multiple sites Gout etiology: other secondary cause Chronicity: chronic Presence of tophus: without tophus Qualified Code(s): M1A.49X0 - Other secondary chronic gout, multiple sites, without tophus (tophi) (20) GERD (gastroesophageal reflux disease): QUALIFIERS: Esophagitis presence: without esophagitis Qualified Code(s): K21.9 - Gastro-esophageal reflux disease without esophagitis (21) COPD (chronic obstructive pulmonary disease): QUALIFIERS: COPD type: unspecified COPD Qualified Code(s): J44.9 - Chronic obstructive pulmonary disease, unspecified PLAN: Would benefit from PFT's going forward. (22) Chronic anticoagulation: PLAN: On Eliquis. PLAN: Plan PLAN PT for gait stability OT for ADL's ST for evaluation Analgesics as needed Bowel protocol Fall precautions Assess for Anxiety/Depression GI prophylaxis with pantoprazole DVT prophylaxis with Eliquis Follow up with PCP, infectious disease, cardiology following DC from [facility] Rehab AM lab including CMP, CBC, Mag, Phos, uric acid, ESR, CRP Start Oxycontin 10 mg Q12H Change the Oxycodone to 10 mg Q 4H PRN Increase the Baclofen to TID repeat ECHO tomorrow try again to get the results of the DEYVI done at [facility]. Obtain all cultures and path reports from [facility] Find out if he had imaging at the [facility] and if he did obtain the results. All cultures have been negative. What if the endocarditis and the lytic lesions in the spine are non-infectious? What if he has MM? Calcium corrected for hypoalbuminemia is 10.1 which is borderline high....in a pt with recent anuric ARF and creat is still not back to baseline I would think it would be low.? Chronic anemia, severe back pain with lytic lesions in the lumbar spine, increased globulins. Will find out if he had rheumatic fever as a child. The L calf is much larger that the L. DVT? Could he be hypercoagulable? If he has a DVT in the LLE will order a hypercoagulable panel. Consider a spinal survey to see if he has other lytic lesions. Consider adding a NSAID for the bone pain........if Creat and HGB are stable for the next few days will start Celebrex 100 mg BID. Charges/Coding Visit Charges Inpatient E&M: 44579 Init Hosp L3
[2022-09-15] MEDS: 0.9% Saline Lock 10 ML Syringe IV (18:02)
[2022-09-15] MEDS: Gabapentin 100 MG Capsule PO (18:08)
[2022-09-15] MEDS: oxyCODONE 5 MG Tablet 10 MG PO (18:12)
[2022-09-15] MEDS: oxyCODONE HCl Cr 10 MG Tablet PO (21:18)
[2022-09-15] MEDS: traZODone 100 MG Tablet PO (21:19)
[2022-09-15] MEDS: APIXABAN 5 MG TABLET PO (21:19)
[2022-09-15] MEDS: Atorvastatin Calcium 40 MG Tablet PO (21:19)
[2022-09-15] MEDS: Senna/Docusate Sodium 1 Tablet 2 TABLET PO (21:19)
[2022-09-15] MEDS: Baclofen 10 MG Tablet 5 MG PO (21:19)
[2022-09-15] MEDS: Polyethylene Glycol 3350 17 GM PACKET PO (21:19)
[2022-09-15] MEDS: Nystatin Powder 15gm Bottle 1 APPLIC TOPICAL (21:23)
[2022-09-15 21:34] VITALS: O2SAT 94
[2022-09-15 21:43] VITALS: BP 116/47; PULSE 89; RESP 16; TEMP 36.8; O2SAT 94
[2022-09-15] MEDS: Acetaminophen 325 MG Tablet 650 MG PO (21:52)
[2022-09-15 21:58] VITALS: BP 116/47; PULSE 89; RESP 16; TEMP 37.9; O2SAT 94
[2022-09-16] MEDS: Baclofen 10 MG Tablet 5 MG PO ×3 (05:14→21:05)
[2022-09-16 06:00] VITALS: BMI 38.3
[2022-09-16 07:01] LABS: Absolute Lymphocyte Count 1.21 X10^3/uL (0.83-4.51); Absolute Neutrophil Count 5.1 X10^3/uL (2.0-7.7); Basophil# 0.03 X10^3/uL; Basophil% 0.4 % (0-1); Eosinophil# 0.32 X10^3/uL; Eosinophils% 4.2 % (0-5); Hemoglobin 8.1 g/dL (13.0-16.5); Lymphocyte # 1.21 X10^3/ul (0.83-4.51); Lymphocyte % 15.9 % (19-41); Mean Corpuscular Hgb 25.8 pg (27.0-32.0); Mean Platelet Vol. 11.6 fl (6.2-12.0); Monocyte# 0.91 X10^3/uL; NRBC Flagged by Analyzer 0 % (0-5); Neutrophil # 5.09 X10^3/uL (2.7-7.7); Neutrophil % 67.1 % (47-70); Platelet Count 309 K/mm3 (150-450); RBC Distribution Width CV 18.2 % (11.6-14.6); RBC Distribution Width SD 57.1 fl (35.1-43.9); Red Blood Count 3.14 M/mm3 (4.6-6.2); White Blood Count 7.6 K/mm3 (4.4-11.0)
[2022-09-16 07:29] LABS: Erythrocyte Sedimentation Rate 53 mm/hr (0-20)
[2022-09-16 07:40] LABS: ALB/GLOB Ratio 0.4 RATIO (0.9-2.4); AST(SGOT) 17 U/L (15-37); Alanine Aminotransfer ALT/SGPT 12 U/L (16-61); Albumin, Serum 2.2 g/dL (3.2-5.0); Alkaline Phosphatase 87 U/L (45-117); Anion Gap 6 (5-15); BUN 10 mg/dL (7-18); BUN/Creat Ratio 7.9 RATIO (10-20); Calcium,Total 8.7 mg/dL (8.5-10.1); Chloride 113 mmol/L (98-107); Creatinine, Serum 1.26 mg/dL (0.70-1.30); EST Glomerular Filtration Rate 62 mL/min (>60); Est Glom Filt Rate - Afr Amer 76 mL/min (>60); Estimated Creatinine Clearance 76.38 ml/min; Globulin 5.1 g/dL (2.2-4.2); Glucose 95 mg/dL (74-106); Magnesium 1.9 mg/dL (1.6-2.6); Phosphorus 4.9 mg/dL (2.5-4.9); Potassium 3.3 mmol/L (3.5-5.1); Protein, Total 7.3 g/dL (6.4-8.2); Sodium Level 146 mmol/L (136-145); Uric Acid 4.1 mg/dL (3.5-7.2)
[2022-09-16 07:45] LABS: Color, Urine Yellow (Yellow); Glucose, Dipstick NEGATIVE (Normal); Ketone-Dipstick Negative (Negative); Nitrite-Dipstick Negative (Negative); Protein-Dipstick 30 mg/dl (Negative); Specific Gravity, Urine 1.015 (1.002-1.030); Urine Bilirubin Dipstick Negative (Negative); Urine Clarity Clear (Clear); Urine Urobilinogen Normal (Normal)
[2022-09-16 07:46] LABS: Leukocyte Esterase-Dipstick 25 /ul (Negative); Occult Blood-Urine Negative /ul (Negative)
[2022-09-16 07:53] VITALS: BP 142/54; PULSE 94; RESP 15; TEMP 37.2; O2SAT 96
[2022-09-16 08:05] LABS: CPK Total, Creatine Kinase 26 U/L (39-308)
[2022-09-16] MEDS: Gabapentin 100 MG Capsule PO ×3 (08:40→17:04)
[2022-09-16] MEDS: Pantoprazole Sodium 40 MG Tablet PO (08:40)
[2022-09-16] MEDS: amLODIPine 10 MG Tablet PO (08:40)
[2022-09-16] MEDS: Clopidogrel Bisulfate 75 MG Tablet PO (08:40)
[2022-09-16] MEDS: APIXABAN 5 MG TABLET PO ×2 (08:40→21:05)
[2022-09-16] MEDS: Fenofibrate 48 MG Tablet PO (08:40)
[2022-09-16] MEDS: Losartan Potassium 50 MG Tablet PO (08:40)
[2022-09-16] MEDS: Venlafaxine XR 75 MG Capsule PO (08:40)
[2022-09-16] MEDS: Senna/Docusate Sodium 1 Tablet 2 TABLET PO ×2 (08:41→21:05)
[2022-09-16] MEDS: Nystatin Powder 15gm Bottle 1 APPLIC TOPICAL ×2 (08:43→21:07)
--- NOTE | 2022-09-16 09:29 | PCM.PROGNOTE ---
Subjective Subjective Temp to 100.2 ?F last night. VSS-blood pressure is good. Maintaining appropriate oxygen saturation on RA Oral intake is good. He took 75 to 100% of his breakfast today. Discussed with nursing - no problems that need addressed Medication list reviewed. Albaro tells me that he slept much better last night then he has been sleeping. The pain in his back is somewhat better since he was restarted on OxyContin and 10 mg of oxycodone every 4 hours as needed for breakthrough pain. He still has significant pain. I reminded him not to wait until the pain was excruciating to ask for the Oxycodone. Albaro denies lightheadedness, vertigo, CP, SOB at rest, cough, nausea, vomiting, abd pain, diarrhea, constipation, dysuria, calf pain and ankle swelling. Still with urinary urgency and he had a low grade fever last night. Urine collected this AM. Lab did a dip instead of the complete UA that was ordered.....will have them amend. LE is + and a urine culture was ordered. White blood cell count today is 7.6 with an unremarkable differential. ESR is still 53. Hemoglobin is stable at 8.1. MCV is up to 86. Sodium is increased at 146 and potassium is low at 3.3. BUN is 10 with a creatinine of 1.26 which is above his baseline but much improved from 4.62 on 09/02/2022 when he was diagnosed with severe sepsis. Uric acid is 4.1 and he is not currently on allopurinol. Phosphorus is normal at 4.9 and the magnesium is normal at 1.9. LFTs are normal. CRP is even higher than it was when he left with sepsis at 109. Objective Data Objective Data Vital Signs: Vital Signs Temp Pulse Resp BP Pulse Ox O2 Del Method 99.0 F 94 15 142/54 H 96 Room Air 09/16/22 07:53 09/16/22 07:53 09/16/22 07:53 09/16/22 07:53 09/16/22 07:53 09/16/22 07:53 Oxygen Delivery Method Room Air Weight: 308 lb 10.354 oz Body Mass Index (BMI) 38.3 Intake & Output: Intake and Output for Last 24 Hours 09/14/22 09/15/22 09/16/22 23:59 23:59 23:59 Intake Total 224 / 224 352 / 352 Output Total 700 / 700 Balance / 224 -348 / -348 Lab / Micro Data 09/16/22 05:34 09/16/22 05:34 Labs: Laboratory Results - last 24 hr 09/16/22 03:15: Urine Color Yellow, Urine Clarity Clear, Urine pH 6.0, Ur Specific [place] 1.015, Urine Protein 30 H, Urine Glucose (UA) NEGATIVE, Urine Ketones Negative, Urine Occult Blood Negative, Urine Nitrite Negative, Urine Bilirubin Negative, Urine Urobilinogen Normal, Ur Leukocyte Esterase 25 H 09/16/22 05:34: WBC 7.6, RBC 3.14 L, Hgb 8.1 L, Hct 27.0 L, MCV 86.0, MCH 25.8 L, MCHC 30.0 L, RDW Std Deviation 57.1 H, RDW Coeff of Ghassan 18.2 H, Plt Count 309, MPV 11.6, Immature Gran % (Auto) 0.400, Neut % (Auto) 67.1, Lymph % (Auto) 15.9 L, Amador % (Auto) 12.0 H, Eos % (Auto) 4.2, Baso % (Auto) 0.4, Absolute Neuts (auto) 5.1, Absolute Lymphs (auto) 1.21, Nucleated RBC % 0, ESR 53 H, Sodium 146 H, Potassium 3.3 L, Chloride 113 H, Carbon Dioxide 27.0, Anion Gap 6, BUN 10, Creatinine 1.26, Estim Creat Clear Calc 76.38, Est GFR (MDRD) Af Amer 76, Est GFR (MDRD) Non-Af 62, BUN/Creatinine Ratio 7.9 L, Glucose 95, Uric Acid 4.1, Calcium 8.7, Phosphorus 4.9, Magnesium 1.9, Total Bilirubin 0.30, AST 17, ALT 12 L, Alkaline Phosphatase 87, Total Creatine Kinase 26 L, C-React Prot Ext Range 109.00 H, Total Protein 7.3, Albumin 2.2 L, Globulin 5.1 H, Albumin/Globulin Ratio 0.4 L Physical Exam Const alert, oriented x3 and no apparent distress General Appearance: cooperative Resp clear to auscultation bilaterally Effort and Inspection: Negative for tachypneic Auscultation: diminished lung sounds Cardio regular rate, regular rhythm and no gallops GI normal to inspection, nondistended, normoactive bowel sounds, soft to palpation and non-tender GI Narrative: No guarding with palpation. Extremity no calf tenderness General Extremity: Negative for edema Skin General Skin Exam: no breakdown Rashes: no rashes Psych affect normal Assessment & Plan Assessment/Plan (1) Physical debility: (2) Septic shock: (3) HCAP (healthcare-associated pneumonia): (4) ARF (acute respiratory failure): QUALIFIERS: Respiratory failure complication: hypoxia and hypercapnia Qualified Code(s): J96.01 - Acute respiratory failure with hypoxia; J96.02 - Acute respiratory failure with hypercapnia (5) Acute renal failure: QUALIFIERS: Acute renal failure type: unspecified Qualified Code(s): N17.9 - Acute kidney failure, unspecified (6) Malnutrition: QUALIFIERS: Malnutrition type: protein-calorie malnutrition Protein-calorie malnutrition severity: severe Qualified Code(s): E43 - Unspecified severe protein-calorie malnutrition (7) Aortic valve endocarditis: (8) Aortic valve regurgitation: QUALIFIERS: Cardiac valve disease etiology: nonrheumatic Qualified Code(s): I35.1 - Nonrheumatic aortic (valve) insufficiency (9) Urinary urgency: (10) Internal and external bleeding hemorrhoids: (11) Colon polyp: QUALIFIERS: Colon polyp type: unspecified Colon location: transverse Qualified Code(s): K63.5 - Polyp of colon (12) Stroke/cerebrovascular accident: QUALIFIERS: CVA mechanism: embolism Precerebral and cerebral artery: middle cerebral artery (13) Anemia: QUALIFIERS: Anemia type: unspecified type Qualified Code(s): D64.9 - Anemia, unspecified (14) Vertebral osteomyelitis, acute: (15) 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: (16) PFO (patent foramen ovale): (17) Hypertension: QUALIFIERS: Hypertension type: primary hypertension Qualified Code(s): I10 - Essential (primary) hypertension (18) Hyperuricemia: (19) Gout: QUALIFIERS: Gout site: multiple sites Gout etiology: other secondary cause Chronicity: chronic Presence of tophus: without tophus Qualified Code(s): M1A.49X0 - Other secondary chronic gout, multiple sites, without tophus (tophi) (20) GERD (gastroesophageal reflux disease): QUALIFIERS: Esophagitis presence: without esophagitis Qualified Code(s): K21.9 - Gastro-esophageal reflux disease without esophagitis (21) COPD (chronic obstructive pulmonary disease): QUALIFIERS: COPD type: unspecified COPD Qualified Code(s): J44.9 - Chronic obstructive pulmonary disease, unspecified (22) Chronic anticoagulation: PLAN: Plan 1. Continue therapy 2. Check TIBC, iron and ferritin today-iron sucrose if he is less than 20% saturated 3. Serum protein electrophoresis and immunoelectrophoresis 4. Ultrasound of the left lower extremity to be done today. If this is positive will do a hypercoagulable panel. 5. Consult Dr. Riojas Charges/Coding Visit Charges Inpatient E&M: 75157 Subs Hosp L2
[2022-09-16 09:45] LABS: Bacteria 0 SEEN /hpf (None Seen); Mucous, Urine 0 SEEN /hpf (<or=2+); Red Blood Cells-Urine 0 SEEN /hpf (0-5); Squamous Epithelial Cells - UA 0 SEEN /hpf (0-5); White Blood Cells 0 SEEN /hpf (0-5)
[2022-09-16 10:13] LABS: Ferritin 273 ng/mL (26-388); Iron 21 ug/dL (65-175); Iron Binding Capacity,Total 126 ug/dL (250-450); PERCENT IRON SATURATION 16.7 % (15.0-55.0)
[2022-09-16] MEDS: 0.9% Saline Lock 10 ML Syringe IV ×2 (10:24→22:38)
[2022-09-16] MEDS: oxyCODONE HCl Cr 10 MG Tablet PO ×2 (10:24→21:05)
--- NOTE | 2022-09-16 11:02 | VDLE_ITS ---
Reason For Study: Lt Leg Swelling RIGHT LEFT CFV is compressible, spontaneous, phasic, GSV is normal. competent and demonstrates normal CFV is compressible, spontaneous, phasic, augmentation. competent, and demonstrates normal Procedure augmentation. This is a venous duplex using B-mode, color FV is compressible, spontaneous, phasic, flow and spectral Doppler. competent and demonstrates normal Exam performed portable in patient room. augmentation. The exam was diagnostic. POP V is compressible, spontaneous, phasic, The study was technically difficult. competent and demonstrates normal A preliminary report was called and/or faxed augmentation. to 4th floor sandwich and drink cart operator. T/P Trunk is compressible. PTV is compressible. LT PerV is compressible. VL/Venous Duplex US, Unilateral Interpretation Summary Deep veins of the left lower extremity are patent and compressible segmentally. There is no evidence of left lower extremity deep vein thrombosis. The left great saphenous vein feliz ears patent and compressible segmentally. Ordering Physician: Sylvie Plata Performed By: Olman Ramos RVT
--- NOTE | 2022-09-16 11:23 | PCM.PROGNOTE ---
Subjective Subjective Daptomycin Unasyn Afebrile - temp of 100 VSS Maintaining appropriate oxygen saturation on RA Oral intake is [] Discussed with nursing - no problems that need addressed Reviewed the PT/OT/ST notes Medication list reviewed. Objective Data Objective Data Vital Signs: Vital Signs Temp Pulse Resp BP Pulse Ox O2 Del Method 99.0 F 94 15 142/54 H 96 Room Air 09/16/22 07:53 09/16/22 07:53 09/16/22 07:53 09/16/22 07:53 09/16/22 07:53 09/16/22 07:53 Oxygen Delivery Method Room Air Weight: 308 lb 10.354 oz Body Mass Index (BMI) 38.3 Intake & Output: Intake and Output for Last 24 Hours 09/14/22 09/15/22 09/16/22 23:59 23:59 23:59 Intake Total 224 / 224 421 / 421 Output Total 700 / 700 Balance 224 / 224 -279 / -279 Lab / Micro Data 09/16/22 05:34 09/16/22 05:34 Labs: Laboratory Results - last 24 hr 09/16/22 03:15: Urine Color Yellow, Urine Clarity Clear, Urine pH 6.0, Ur Specific [place] 1.015, Urine Protein 30 H, Urine Glucose (UA) NEGATIVE, Urine Ketones Negative, Urine Occult Blood Negative, Urine Nitrite Negative, Urine Bilirubin Negative, Urine Urobilinogen Normal, Ur Leukocyte Esterase 25 H, Urine RBC 0 SEEN, Urine WBC 0 SEEN, Ur Squamous Epith Cells 0 SEEN, Urine Bacteria 0 SEEN, Urine Mucus 0 SEEN 09/16/22 05:34: WBC 7.6, RBC 3.14 L, Hgb 8.1 L, Hct 27.0 L, MCV 86.0, MCH 25.8 L, MCHC 30.0 L, RDW Std Deviation 57.1 H, RDW Coeff of Ghassan 18.2 H, Plt Count 309, MPV 11.6, Immature Gran % (Auto) 0.400, Neut % (Auto) 67.1, Lymph % (Auto) 15.9 L, [place] % (Auto) 12.0 H, Eos % (Auto) 4.2, Baso % (Auto) 0.4, Absolute Neuts (auto) 5.1, Absolute Lymphs (auto) 1.21, Nucleated RBC % 0, ESR 53 H, Sodium 146 H, Potassium 3.3 L, Chloride 113 H, Carbon Dioxide 27.0, Anion Gap 6, BUN 10, Creatinine 1.26, Estim Creat Clear Calc 76.38, Est GFR (MDRD) Af Amer 76, Est GFR (MDRD) Non-Af 62, BUN/Creatinine Ratio 7.9 L, Glucose 95, Uric Acid 4.1, Calcium 8.7, Phosphorus 4.9, Magnesium 1.9, Iron 21 L, TIBC 126 L, Iron Saturation 16.7, Ferritin 273, Total Bilirubin 0.30, AST 17, ALT 12 L, Alkaline Phosphatase 87, Total Creatine Kinase 26 L, C-React Prot Ext Range 109.00 H, Total Protein 7.3, Albumin 2.2 L, Globulin 5.1 H, Albumin/Globulin Ratio 0.4 L
--- NOTE | 2022-09-16 11:43 | PCM.RU.PYE ---
Admission Information Primary Diagnosis:: Physical debility secondary to recent septic shock, severe malnutrition and endocarditis. Status Changes from Prescreening?: No changes Identified Actual Problem List:: DVT, Bleeding, Infection, Pain, ALteration in Cmfrt, Cognitve Impr/Memory Loss, Depression, Bowel, Constipation, Alteration in Sleep, Alteration in Nutrition, Mobility Impaired, Self Care Deficit, BP, Hypertension, Alteration/ Air Exchange and Alteration-Leisure Activ. Potential Problem List:: DVT, Bleeding, Infection, UTI, Aspiration, Falls, Skin Integrity and Depression Risk of Complications DVT: ETELVINA Hose and - (Eliquis 5 mg twice daily) Bleeding: Monitor Lab Values, Nursing to Teach Precautions for anti-coagulation therapy., Wound, if applicable, to be assessed every shift. and Stroke patients assessed for lethargy or change in status. Infection: Clinical Staff to Monitor for S/S of infection: and S/S of infection include fever, redness, warmth, etc. Urinary Tract Infection: Monitor for frequency, burning, discomfort, or incontinence. and Nursing will obtain urine sample for urinalysis and C&S when ordered. Aspiration: Clinical staff will monitor for coughing, drooling, congestion., Speech will evaluate swallowing and dsyphasia. and Nursing will monitor patient swallowing during meals. Falls: Patient will be evaluated for Fall Precautions and Patient will be placed on Fall Precautions as indicated per protocol. Skin Breakdown: Nursing will assess skin daily using assessment tool. and Nursing will place on Skin Breakdown Precautions as indicated. Pain: Clinical staff will assess patient's pain level per protocol., Medications will be given, if needed, and the pain level reassessed. and Other methods: Massage, distraction, decrease stimulus, etc. used PRN. Plan of Care Patient requires physician specializing in physical medicine and rehab oversight to provide close medical supervision of rehab issues including: Pain Management, Sleep Problems, Bowel and Bladder, Medical and co-morbidity Management, DVT prophylaxis, Rehabilitation Leadership and Coordination of treatment team Patient needs Physical Therapy: For a minimum of 1 hour and At least 5 out of 7 days Patient needs Physical Therapy to improve:: Mobility, Strengthening, Transfers, Stretching, ROM, Endurance, Stairs, Gait and Balance Patient needs Occupational Therapy: For a minimum of 1 hour and At least 5 out of 7 days Patient needs Occupational Therapy to improve ADL's incl.: Eating, Grooming, Bathing, Dressing, Toileting, Toilet transfers, Community Reintegration, Higher functioning activities, Household tasks, Adaptive Equipment, Splinting and Other activities as determined Patient requires speech therapy: For a minimum of 1 hour and At least 5 out of 7 days Patient requires speech therapy for: Swallowing, Cognition, Language Skills and Compensatory Strategies Patient requires 24/ Rehabilitation Nursing for: Pain Issues, Identifying and preventing risk factors, Monitoring and reporting current medical conditions, Assisting with ambulation, transfer, and all ADL's, Teaching patients about disease process and medications, Family teaching, Providing safe environment, Bowel and Bladder Issues, Skin integrity and Medication Management Patient needs Sales Development Executive/ Case Management for: Discharge Planning, Arranging Home Equipment or Services and Family Interventions Patient needs Dietary and Nutrition Services for: Adequate Nutrition, Nutritional Supplements and Nutritional Education Goals Patient will remain: free from falls and or injury at time of discharge. Patient will perform bed mobility at: MOD I level of assist. Patient will complete transfers from bed to chair at: MOD I level of assist. Patient will ambulate: with LRD and - (450 feet with least restrictive device at mod I on various surfaces) Patient will complete upper body dressing at: MOD I level of assist. Patient will complete lower body dressing at: MOD I level of assist. Patient will complete toileting at: MOD I level of assist. Patient will perform bathing at: MOD I level of assist. Patient will complete grooming at: MOD I level of assist. Patient will complete home management skills at: MOD I level of assist. Patient will achieve: - (1 curb step and 5 steps with 2 handrails at standby assist to allow entrance to his home.) Patient will have pain level of: of 3 or less Patient's skin will: remain intact Patient will receive: adequate nutrition. Discharge Planning Pt Prognosis for Sig. Practical Improv. w/in Reasonable Time: Good Estimated Length of stay (days): 21 Anticipated D/C Destination: Home with Outpt Therapy
[2022-09-16] MEDS: Ferrous Sulfate 325 MG Tablet PO (12:52)
[2022-09-16] MEDS: Potassium Chloride Oral Tablet 20 MEQ 40 MEQ PO (12:52)
[2022-09-16] MEDS: Ascorbic Acid 500 MG Tablet 1000 MG PO (12:52)
--- NOTE | 2022-09-16 13:42 | CON.PCM.ID_ITS ---
Assessment & Plan Assessment/Plan (1) Aortic valve endocarditis: PLAN: Reviewed latest [facility] records. ID is Dr. Morgan. DEYVI showed veg. Lumbar bx with neg path and neg cx. Cont dapto/unasyn until 10/08/22. New low grade temp one time, no new focal symptoms or signs on exam. Will cont to monitor. If develops fever, would check bcx x2, UA/Ucx, cxr, covid pcr. Will follow, thank you, d/w Dr. Plata HPI Consult Data Date of Consult: 09/16/22 HPI Narrative Reason for Consultation: endocarditis HPI Narrative: PHILIP DU, is a 57 M who presented as transfer back from [facility]. Dx with endocarditis, put on dapto/unasyn, transferred to rehab. Developed new back pain, CT showed lumbar osteo/discitis. Also with new NYDIA. Sent to [facility], NYDIA improved, DEYVI done, lumbar bx done. Now returned on dapto/unasyn with stop date 10/08/22. Low grade temp this AM to 100.2, denies any new symptoms. Some persistent lower back pain since bx done. Full ROS performed and neg except as noted above. [facility] Medical History Abnormal LFTs Aortic valve regurgitation Chronic back pain Class 3 obesity Colon polyp COPD (chronic obstructive pulmonary disease) DVT of lower limb, acute Dysarthria Elevated TSH Encephalopathy acute Endocarditis Family history of heart disease Former smoker GERD (gastroesophageal reflux disease) Gout HCAP (healthcare-associated pneumonia) Hearing loss, left Heme positive stool Hypertension Hyperuricemia Hypoalbuminemia Iron deficiency Left atrial enlargement Leukocytosis Normocytic hypochromic anemia Peripheral vascular disease PFO (patent foramen ovale) Physical debility Prediabetes Presence of arterial stent QT prolongation Rheumatoid arthritis SAH (subarachnoid hemorrhage) Septic shock Stroke/cerebrovascular accident Superficial thrombophlebitis Home Medications Cubicin 950 mg IVPB Q24H ATB 07/23/22 [History Last Taken 07/23/22 17:52] amlodipine 10 mg PO/SL DAILY HTN 07/23/22 [History Last Taken 07/23/22] atorvastatin 40 mg PO/SL QHS HIGH CHOLESTEROL 07/23/22 [History Last Taken 07/22/22 21:22] polyethylene glycol 3350 17 g PO/SL QHS CONSTIPATION 07/23/22 [History Last Taken 07/22/22 08:10] aluminum-mag hydroxide-simethicone 400 mg-400 mg-40 mg/5 mL oral susp (Mag-Al Plus Extra Strength) 15 ml PO Q6H PRN PRN HEARTBURN OR INDIGESTION #1 mL 0 09/02/22 [Rx Last Taken Unknown] acetaminophen 325 mg tablet 650 mg PO Q6H PRN pain/fever 09/15/22 [History Last Taken Unknown] acidophilus 25 million cell-pectin, citrus 100 mg tablet 1 tab PO TIDCM p robiotic 09/15/22 [History Last Taken Unknown] ampicillin-sulbactam 3 g IVPB Q6H ATB 09/15/22 [History Last Taken 09/15/22 12:00] apixaban 5 mg tablet (Eliquis) 5 mg PO BID Check with primary doctor 09/15/22 [History Last Taken Unknown] ascorbic acid (vitamin C) 500 mg tablet 1,000 mg PO 1200 supplement 09/15/22 [History Last Taken Unknown] baclofen 10 mg tablet 5 mg PO BID Check with primary doctor 09/15/22 [History Last Taken Unknown] clopidogrel 75 mg tablet (Plavix) 75 mg PO DAILY Check with primary doctor 09/15/22 [History Last Taken Unknown] fenofibrate nanocrystallized 48 mg tablet 48 mg PO DAILYCM Check with primary doctor 09/15/22 [History Last Taken Unknown] ferrous sulfate 325 mg (65 mg iron) tablet (FeroSul) 325 mg PO DAILY@1200 supplement 09/15/22 [History Last Taken Unknown] gabapentin 100 mg capsule 100 mg PO TIDCM pain 09/15/22 [History Last Taken Unknown] heparin, porcine (PF) 10 unit/mL intravenous syringe 50 units IV QHS Check with primary doctor 09/15/22 [History Last Taken Unknown] losartan 50 mg tablet 50 mg PO DAILY BP 09/15/22 [History Last Taken Unknown] nystatin 100,000 unit/gram topical powder (Nyamyc) 1 applic topical BID redness 09/15/22 [History Last Taken Unknown] pantoprazole 40 mg tablet,delayed release 40 mg PO DAILY Check with primary doctor 09/15/22 [History Last Taken Unknown] venlafaxine 75 mg capsule,extended release 24 hr 75 mg PO DAILY Check with primary doctor 09/15/22 [History Last Taken Unknown] Allergy/AdvReac Type Severity Reaction Status Date / Time cephalexin Allergy Shortness Verified 09/09/22 13:21 of breath Surgical History H/O hand surgery History of bowel resection Hx of total knee arthroplasty 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 S/P PICC central line placement Social History household members: spouse Smoking Status: Former smoker Physical Exam Const alert, oriented x3 and no apparent distress General Appearance: cooperative HEENT normocephalic and head/scalp atraumatic Eyes PERRL and EOMs intact bilaterally Neck supple and No nodes Resp normal air movement and clear to auscultation bilaterally Cardio regular rate and regular rhythm Heart Sounds: murmur GI soft to palpation, non-tender and non-distended Extremity General Extremity: edema Skin no rashes or lesions noted Skin Narrative: LUE picc no inflammation Neuro CN's II-XII intact bilaterally Medical Records Data Attestation: I reviewed the patient's medical records Lab / Micro Data 09/16/22 05:34 09/16/22 05:34 Labs: Laboratory Results - last 24 hr 09/16/22 03:15: Urine Color Yellow, Urine Clarity Clear, Urine pH 6.0, Ur Specific [place] 1.015, Urine Protein 30 H, Urine Glucose (UA) NEGATIVE, Urine Ketones Negative, Urine Occult Blood Negative, Urine Nitrite Negative, Urine Bilirubin Negative, Urine Urobilinogen Normal, Ur Leukocyte Esterase 25 H, Urine RBC 0 SEEN, Urine WBC 0 SEEN, Ur Squamous Epith Cells 0 SEEN, Urine Bacteria 0 SEEN, Urine Mucus 0 SEEN 09/16/22 05:34: WBC 7.6, RBC 3.14 L, Hgb 8.1 L, Hct 27.0 L, MCV 86.0, MCH 25.8 L , MCHC 30.0 L, RDW Std Deviation 57.1 H, RDW Coeff of Ghassan 18.2 H, Plt Count 309, MPV 11.6, Immature Gran % (Auto) 0.400, Neut % (Auto) 67.1, Lymph % (Auto) 15.9 L, [place] % (Auto) 12.0 H, Eos % (Auto) 4.2, Baso % (Auto) 0.4, Absolute Neuts (auto) 5.1, Absolute Lymphs (auto) 1.21, Nucleated RBC % 0, ESR 53 H, Sodium 146 H, Potassium 3.3 L, Chloride 113 H, Carbon Dioxide 27.0, Anion Gap 6, BUN 10, Creatinine 1.26, Estim Creat Clear Calc 76.38, Est GFR (MDRD) Af Amer 76, Est GFR (MDRD) Non-Af 62, BUN/Creatinine Ratio 7.9 L, Glucose 95, Uric Acid 4.1, Calcium 8.7, Phosphorus 4.9, Magnesium 1.9, Iron 21 L, TIBC 126 L, Iron Saturation 16.7, Ferritin 273, Total Bilirubin 0.30, AST 17, ALT 12 L, Alkaline Phosphatase 87, Total Creatine Kinase 26 L, C-React Prot Ext Range 109.00 H, Total Protein 7.3, Albumin 2.2 L, Globulin 5.1 H, Albumin/Globulin Ratio 0.4 L Radiology Impression Echocardiogram 09/15/22 16:32 Interpretation Summary Normal LV size. Left ventricular systolic function is normal. The estimated ejection fraction is 60 %. Mild focal aortic valve thickening. Holo diastolic aortic flow reversal. Severe (4+) aortic valve insufficiency. Moderate concentric left ventricular hypertrophy. Ordering Physician: Sylvie Plata Referring Physician: Eleazar Hernandez Performed By: Cassandra Malloy, RDCS, RVT
[2022-09-16 14:30] VITALS: O2SAT 95
[2022-09-16] MEDS: oxyCODONE 5 MG Tablet 10 MG PO (14:35)
[2022-09-16] MEDS: Atorvastatin Calcium 40 MG Tablet PO (21:05)
[2022-09-16] MEDS: traZODone 100 MG Tablet PO (21:05)
[2022-09-16] MEDS: Polyethylene Glycol 3350 17 GM PACKET PO (21:05)
[2022-09-16 21:31] VITALS: BP 154/49; PULSE 93; RESP 16; TEMP 37.1; O2SAT 93
--- NOTE | 2022-09-17 01:10 | NURSING ---
Post void bladder scan 251. Pt declined st cath states will try standing next time to empty better.
[2022-09-17] MEDS: oxyCODONE 5 MG Tablet 10 MG PO ×3 (04:45→18:48)
[2022-09-17] MEDS: 0.9% Saline Lock 10 ML Syringe IV ×5 (04:45→22:19)
[2022-09-17] MEDS: Baclofen 10 MG Tablet 5 MG PO ×3 (06:47→22:16)
[2022-09-17] MEDS: APIXABAN 5 MG TABLET PO ×2 (08:51→22:16)
[2022-09-17] MEDS: Pantoprazole Sodium 40 MG Tablet PO (08:51)
[2022-09-17] MEDS: Venlafaxine XR 75 MG Capsule PO (08:51)
[2022-09-17] MEDS: Losartan Potassium 50 MG Tablet PO (08:51)
[2022-09-17] MEDS: Fenofibrate 48 MG Tablet PO (08:52)
[2022-09-17] MEDS: amLODIPine 10 MG Tablet PO (08:52)
[2022-09-17] MEDS: Potassium Chloride Oral Tablet 20 MEQ PO (08:52)
[2022-09-17] MEDS: Clopidogrel Bisulfate 75 MG Tablet PO (08:53)
[2022-09-17] MEDS: Gabapentin 100 MG Capsule PO (09:34)
[2022-09-17 09:54] VITALS: BP 138/59; PULSE 94; RESP 20; TEMP 37.2; O2SAT 93
[2022-09-17] MEDS: oxyCODONE HCl Cr 10 MG Tablet PO ×2 (10:12→22:19)
[2022-09-17] MEDS: Nystatin Powder 15gm Bottle 1 APPLIC TOPICAL ×2 (10:12→22:25)
--- NOTE | 2022-09-17 11:59 | PCM.PROGNOTE ---
Subjective Subjective Afebrile-no fevers since 10 PM on 09/15/2022. VSS-the last 3 blood pressures have shown systolic blood pressure to be greater than 30. Diastolics are within normal limits. Maintaining appropriate oxygen saturation on RA Oral intake is good Discussed with nursing - no problems that need addressed Reviewed the PT/OT/ST notes Medication list reviewed. I reviewed Dr. Riojas's note and appreciate his input. Also reviewed the ECHO report. AI is now severe. Will likely need an AV replacement. Venous ultrasound was negative for DVT. Slept well last night. Appetite and intake is improved. Still with back pain that he tells me is up there but, he declined increasing the pain meds. He is taking the Oxycodone only once a day. Al denies headache, chest pain, sore mouth, diarrhea, painful urination, SOB, calf pain and lightheadedness. Objective Data Objective Data Vital Signs: Vital Signs Temp Pulse Resp BP Pulse Ox O2 Del Method 99.0 F 94 20 H 138/59 H 93 Room Air 09/17/22 09:54 09/17/22 09:54 09/17/22 09:54 09/17/22 09:54 09/17/22 09:54 09/17/22 09:54 Oxygen Delivery Method Room Air Weight: 308 lb 10.354 oz Body Mass Index (BMI) 38.3 Intake & Output: Intake and Output for Last 24 Hours 09/15/22 09/16/22 09/17/22 23:59 23:59 23:59 Intake Total 224 / 224 2375 / 2375 772.00 / 772.00 Output Total 1900 / 1900 1400 / 1400 Balance 224 / 224 475 / 475 -628.00 / -628.00 Medical Nutrition Assessment Dietitian: Malnutrition Criteria Met Start: 09/16/22 15:12 Freq: Status: Active Protocol: Document 09/16/22 15:12 LO (Rec: 09/16/22 15:12 LO [id number]) Nutrition Malnutrition Evidence of Malnutrition Exists Yes Malnutrition (moderate): Acute Illness/Injury Evidenced By Suboptimal Energy Intake ( Moderate),Weight Loss (Severe) Clinical Problem Acute Disease or Injury Related Malnutrition Etiology moderate related to suboptimal appetite Signs/Symptoms as evidenced by <75% PO intake of estimated energy needs for >7 days and 17lbs (5.2%) weight loss in 1 month Status Active Problem Recommendation Dietitian Recommendations/Changes Continue Cardiac diet to manage medical conditions. Will hold off on ONS at this time due to adequate PO intakes and reassess at follow -up. Lab / Micro Data 09/23/22 05:25 09/23/22 05:25 Micro: Microbiology 09/16/22 03:15 Urine, Clean Catch Urine Culture - Preliminary Culture exhibits no growth. Radiography Diagnostic Testing: Radiology Impression Echocardiogram 09/15/22 16:32 Interpretation Summary Normal LV size. Left ventricular systolic function is normal. The estimated ejection fraction is 60 %. Mild focal aortic valve thickening. Holo diastolic aortic flow reversal. Severe (4+) aortic valve insufficiency. Moderate concentric left ventricular hypertrophy. Ordering Physician: Sylvie Plata Referring Physician: Eleazar Hernandez Performed By: Cassandra Malloy RDCS, RVT Venous Doppler Study 09/16/22 11:02 Interpretation Summary Deep veins of the left lower extremity are patent and compressible segmentally. There is no evidence of left lower extremity deep vein thrombosis. The left great saphenous vein appears patent and compressible segmentally. Ordering Physician: Sylvie Plata Performed By: Olman Ramos, RVT Physical Exam Const alert and no apparent distress General Appearance: cooperative Resp normal respiratory effort, no use of accessory muscles and clear to auscultation bilaterally Effort and Inspection: Negative for tachypneic or labored Auscultation: diminished lung sounds Cardio regular rate, regular rhythm and no gallops GI normal to inspection, nondistended, normoactive bowel sounds, non-tender and non-distended GI Narrative: no guarding with palpation Extremity Negative for no calf tenderness General Extremity: Negative for edema Skin General Skin Exam: no breakdown Rashes: no rashes Psych affect normal Assessment & Plan Assessment/Plan (1) Physical debility: (2) Septic shock: (3) HCAP (healthcare-associated pneumonia): (4) ARF (acute respiratory failure): QUALIFIERS: Respiratory failure complication: hypoxia and hypercapnia Qualified Code(s): J96.01 - Acute respiratory failure with hypoxia; J96.02 - Acute respiratory failure with hypercapnia (5) Acute renal failure: QUALIFIERS: Acute renal failure type: unspecified Qualified Code(s): N17.9 - Acute kidney failure, unspecified (6) Malnutrition: QUALIFIERS: Malnutrition type: protein-calorie malnutrition Protein-calorie malnutrition severity: severe Qualified Code(s): E43 - Unspecified severe protein-calorie malnutrition (7) Aortic valve endocarditis: (8) Aortic valve regurgitation: QUALIFIERS: Cardiac valve disease etiology: nonrheumatic Qualified Code(s): I35.1 - Nonrheumatic aortic (valve) insufficiency (9) Urinary urgency: (10) Internal and external bleeding hemorrhoids: (11) Colon polyp: QUALIFIERS: Colon polyp type: unspecified Colon location: transverse Qualified Code(s): K63.5 - Polyp of colon (12) Stroke/cerebrovascular accident: QUALIFIERS: CVA mechanism: embolism Precerebral and cerebral artery: middle cerebral artery (13) Anemia: QUALIFIERS: Anemia type: unspecified type Qualified Code(s): D64.9 - Anemia, unspecified (14) Vertebral osteomyelitis, acute: (15) 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: (16) PFO (patent foramen ovale): (17) Hypertension: QUALIFIERS: Hypertension type: primary hypertension Qualified Code(s): I10 - Essential (primary) hypertension (18) Hyperuricemia: (19) Gout: QUALIFIERS: Gout site: multiple sites Gout etiology: other secondary cause Chronicity: chronic Presence of tophus: without tophus Qualified Code(s): M1A.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 PLAN: Plan 1. Continue therapy 2. Continue daptomycin and Unasyn 3. Increase gabapentin to 200 mg 3 times daily 4. DEYVI scheduled for tomorrow. Pt does not want to follow up at [facility] for cardiology and wants to follow up with Dr. Christensen and if he needs a valve replacement be would like to go to [facility]. 5. Serum protein electrophoresis and immunoelectrophoresis are pending. Charges/Coding Visit Charges Inpatient E&M: 24731 Subs Hosp L2
[2022-09-17] MEDS: Ferrous Sulfate 325 MG Tablet PO (12:21)
[2022-09-17] MEDS: Ascorbic Acid 500 MG Tablet 1000 MG PO (12:21)
--- NOTE | 2022-09-17 13:00 | CASEMGMT ---
Social Work IDT met with patient and for Team meeting. Discussed patient's progress in PT/OT/ST/SN. Educated to commercial insurance with [employer] 09/24 and continued stay is not guaranteed with each review. will begin with IV teaching for pt to return home prior to end of IV ATB if pt improves in therapy. SW to send referral to [facility] to check costs of IVs at home. Will ReTeam weekly. SW to continue to follow for DC planning. Samaria Ellington, INFORMATION SYSTEMS PLANNER REWEAVER
[2022-09-17 14:09] LABS: Albumin 2.7 g/dL (2.9-4.4); Alpha-1-Globulins 0.4 g/dL (0.0-0.4); Gamma Globulin 1.3 g/dL (0.4-1.8); IMMUNOFIXATION RESULT,S Comment: (.); Immunoglobulin A 528 mg/dL (90-386); Immunoglobulin G 1296 mg/dL (603-1613); Immunoglobulin M 42 mg/dL (20-172); PROEL- TOTAL PROTEIN 6.6 g/dL (6.0-8.5)
[2022-09-17] MEDS: Celecoxib 100 MG Capsule PO (16:39)
[2022-09-17] MEDS: Gabapentin 100 MG Capsule 200 MG PO (16:40)
[2022-09-17 22:00] VITALS: BP 124/61; PULSE 78; PULSE 86; RESP 17; RESP 18; TEMP 37.2; O2SAT 94
[2022-09-17] MEDS: traZODone 100 MG Tablet PO (22:15)
[2022-09-17] MEDS: Senna/Docusate Sodium 1 Tablet 2 TABLET PO (22:16)
[2022-09-17] MEDS: Atorvastatin Calcium 40 MG Tablet PO (22:16)
[2022-09-17] MEDS: Polyethylene Glycol 3350 17 GM PACKET PO (22:16)
[2022-09-18] VITALS (10 sets, daily range): BP systolic 142–158; BP diastolic 47–65; PULSE 78–90; RESP 16–18; TEMP 36.6–37.7; O2SAT 91–99; BMI 30.2
[2022-09-18] MEDS: Celecoxib 100 MG Capsule PO (08:12)
[2022-09-18] MEDS: Gabapentin 100 MG Capsule 200 MG PO ×2 (08:12→18:08)
[2022-09-18] MEDS: Senna/Docusate Sodium 1 Tablet 2 TABLET PO ×2 (08:12→20:45)
[2022-09-18] MEDS: Pantoprazole Sodium 40 MG Tablet PO (08:12)
[2022-09-18] MEDS: Clopidogrel Bisulfate 75 MG Tablet PO (08:12)
[2022-09-18] MEDS: amLODIPine 10 MG Tablet PO (08:12)
[2022-09-18] MEDS: Venlafaxine XR 75 MG Capsule PO (08:12)
[2022-09-18] MEDS: APIXABAN 5 MG TABLET PO ×2 (08:12→20:44)
[2022-09-18] MEDS: Losartan Potassium 50 MG Tablet PO (08:13)
[2022-09-18] MEDS: Potassium Chloride Oral Tablet 20 MEQ PO (08:13)
[2022-09-18] MEDS: Fenofibrate 48 MG Tablet PO (08:13)
[2022-09-18] MEDS: Baclofen 10 MG Tablet 5 MG PO ×2 (08:13→20:43)
[2022-09-18] MEDS: oxyCODONE 5 MG Tablet 10 MG PO ×2 (08:13→18:09)
--- NOTE | 2022-09-18 09:00 | ECHOTEE_ITS ---
Reason For Study: Endocarditis Medication DEYVI probe 6VT-D (SN [id number]) passed without difficulty. No complications were noted. Cetacaine Topical [place] given X3 orally. Versed 3 mg given slow IVP. Fentanyl 75 mcg given slow IVP. Performed a rapid injection of agitated mix of 9 cc saline and 1cc air to assess for atrial septal defect. Left Ventricle Normal LV size. Left ventricular systolic function is normal. The estimated ejection fraction is 60 %. No regional wall motion abnormalities noted. Right Ventricle Normal RV size. Normal systolic function. Atria Bubble contrast study negative for right to left interatrial shunt. Normal left atrium. Normal right atrium. Mitral Valve Normal mitral valve. Tricuspid Valve Normal tricuspid valve. Aortic Valve Trileaflet aortic valve with thickening of valve leaflets and filamentous structure noted on the noncoronary cusp suggestive of endocarditis. Severe (4+) aortic valve insufficiency. Pulmonic Valve Normal pulmonic valve. Vessels Normal aortic root. Normal arch. The pulmonary artery is normal size. Pericardium No pericardial effusion. ECHO/Echo Transesophageal (DEYVI) Interpretation Summary Normal LV size. Left ventricular systolic function is normal. Trileaflet aortic valve with thickening of valve leaflets and filamentous struc ture noted on the noncoronary cusp suggestive of endocarditis. Ordering Physician: Sylvie Plata Referring Physician: Eleazar Hernandez Performed By: Cassandra Malloy, RDCS, RVT
[2022-09-18] MEDS: oxyCODONE HCl Cr 10 MG Tablet PO ×2 (10:09→21:01)
[2022-09-18] MEDS: Nystatin Powder 15gm Bottle 1 APPLIC TOPICAL ×2 (10:17→20:44)
[2022-09-18] MEDS: Ferrous Sulfate 325 MG Tablet PO (18:02)
[2022-09-18] MEDS: Ascorbic Acid 500 MG Tablet 1000 MG PO (18:06)
[2022-09-18] MEDS: Mineral Oil/Petrolatum Cr 1.75oz Bottle 1 APPLIC TOPICAL (20:10)
[2022-09-18] MEDS: Polyethylene Glycol 3350 17 GM PACKET PO (20:43)
[2022-09-18] MEDS: Atorvastatin Calcium 40 MG Tablet PO (20:43)
[2022-09-18] MEDS: traZODone 100 MG Tablet PO (20:44)
[2022-09-18] MEDS: 0.9% Saline Lock 10 ML Syringe IV (20:46)
[2022-09-19] MEDS: Baclofen 10 MG Tablet 5 MG PO ×3 (05:39→21:26)
[2022-09-19] MEDS: oxyCODONE 5 MG Tablet 10 MG PO ×3 (05:42→17:27)
[2022-09-19] MEDS: Fenofibrate 48 MG Tablet PO (08:04)
[2022-09-19] MEDS: Potassium Chloride Oral Tablet 20 MEQ PO (08:05)
[2022-09-19] MEDS: Gabapentin 100 MG Capsule 200 MG PO ×3 (08:05→17:27)
[2022-09-19] MEDS: Celecoxib 100 MG Capsule PO (08:05)
[2022-09-19] MEDS: Losartan Potassium 50 MG Tablet PO (08:06)
[2022-09-19] MEDS: APIXABAN 5 MG TABLET PO ×2 (08:06→21:24)
[2022-09-19] MEDS: Venlafaxine XR 75 MG Capsule PO (08:06)
[2022-09-19] MEDS: amLODIPine 10 MG Tablet PO (08:07)
[2022-09-19] MEDS: Pantoprazole Sodium 40 MG Tablet PO (08:07)
[2022-09-19] MEDS: Senna/Docusate Sodium 1 Tablet 2 TABLET PO ×2 (08:07→21:27)
[2022-09-19] MEDS: Clopidogrel Bisulfate 75 MG Tablet PO (08:07)
[2022-09-19 08:15] VITALS: BP 143/56; PULSE 88; RESP 16; TEMP 37; O2SAT 96
[2022-09-19] MEDS: Mineral Oil/Petrolatum Cr 1.75oz Bottle 1 APPLIC TOPICAL ×2 (09:53→21:23)
[2022-09-19] MEDS: oxyCODONE HCl Cr 10 MG Tablet PO ×2 (09:53→21:51)
[2022-09-19] MEDS: Nystatin Powder 15gm Bottle 1 APPLIC TOPICAL ×2 (09:54→21:27)
[2022-09-19] MEDS: Ascorbic Acid 500 MG Tablet 1000 MG PO (12:15)
[2022-09-19] MEDS: Ferrous Sulfate 325 MG Tablet PO (12:15)
[2022-09-19 15:25] VITALS: BMI 30.2
[2022-09-19 19:25] VITALS: BP 139/51; PULSE 86; RESP 16; TEMP 36.7; O2SAT 93
[2022-09-19] MEDS: Atorvastatin Calcium 40 MG Tablet PO (21:27)
[2022-09-19] MEDS: Polyethylene Glycol 3350 17 GM PACKET PO (21:27)
[2022-09-19] MEDS: traZODone 100 MG Tablet PO (21:27)
[2022-09-19 22:00] VITALS: PULSE 83; RESP 15; O2SAT 93
[2022-09-19 22:42] VITALS: BMI 30.2
[2022-09-20] MEDS: oxyCODONE 5 MG Tablet 10 MG PO ×3 (05:20→17:37)
[2022-09-20] MEDS: Baclofen 10 MG Tablet 5 MG PO ×3 (05:20→22:28)
[2022-09-20] MEDS: 0.9% Saline Lock 10 ML Syringe IV (05:48)
[2022-09-20] MEDS: Celecoxib 100 MG Capsule PO (07:43)
[2022-09-20] MEDS: APIXABAN 5 MG TABLET PO ×2 (07:43→22:28)
[2022-09-20] MEDS: Potassium Chloride Oral Tablet 20 MEQ PO (07:44)
[2022-09-20] MEDS: amLODIPine 10 MG Tablet PO (07:44)
[2022-09-20] MEDS: Venlafaxine XR 75 MG Capsule PO (07:44)
[2022-09-20] MEDS: Losartan Potassium 50 MG Tablet PO (07:46)
[2022-09-20] MEDS: Fenofibrate 48 MG Tablet PO (07:46)
[2022-09-20] MEDS: Gabapentin 100 MG Capsule 200 MG PO ×3 (07:51→17:38)
[2022-09-20] MEDS: Pantoprazole Sodium 40 MG Tablet PO (07:51)
[2022-09-20] MEDS: Clopidogrel Bisulfate 75 MG Tablet PO (07:51)
[2022-09-20] MEDS: Nystatin Powder 15gm Bottle 1 APPLIC TOPICAL ×2 (07:54→22:29)
[2022-09-20 09:40] VITALS: BP 146/50; PULSE 88; RESP 15; TEMP 36.8; O2SAT 94
[2022-09-20] MEDS: oxyCODONE HCl Cr 10 MG Tablet PO ×2 (10:27→22:27)
[2022-09-20] MEDS: Mineral Oil/Petrolatum Cr 1.75oz Bottle 1 APPLIC TOPICAL ×2 (11:25→22:29)
[2022-09-20] MEDS: Ferrous Sulfate 325 MG Tablet PO (13:00)
[2022-09-20] MEDS: Ascorbic Acid 500 MG Tablet 1000 MG PO (13:00)
[2022-09-20 14:27] VITALS: BMI 30.2
[2022-09-20 20:15] VITALS: BMI 30.2
[2022-09-20 20:25] VITALS: BP 152/54; PULSE 79; RESP 18; TEMP 36.7; O2SAT 92
[2022-09-20] MEDS: Polyethylene Glycol 3350 17 GM PACKET PO (22:23)
[2022-09-20] MEDS: traZODone 100 MG Tablet PO (22:27)
[2022-09-20] MEDS: Atorvastatin Calcium 40 MG Tablet PO (22:28)
[2022-09-20] MEDS: Senna/Docusate Sodium 1 Tablet 2 TABLET PO (22:28)
[2022-09-21] MEDS: oxyCODONE 5 MG Tablet 10 MG PO ×3 (05:18→18:14)
[2022-09-21] MEDS: Baclofen 10 MG Tablet 5 MG PO ×3 (05:21→22:16)
[2022-09-21 07:25] VITALS: BP 158/56; PULSE 94; RESP 18; TEMP 36.7; O2SAT 94
[2022-09-21] MEDS: Potassium Chloride Oral Tablet 20 MEQ PO (08:24)
[2022-09-21] MEDS: APIXABAN 5 MG TABLET PO ×2 (08:25→22:16)
[2022-09-21] MEDS: Pantoprazole Sodium 40 MG Tablet PO (08:25)
[2022-09-21] MEDS: Losartan Potassium 50 MG Tablet PO ×2 (08:25→11:52)
[2022-09-21] MEDS: Clopidogrel Bisulfate 75 MG Tablet PO (08:25)
[2022-09-21] MEDS: Celecoxib 100 MG Capsule PO (08:25)
[2022-09-21] MEDS: Fenofibrate 48 MG Tablet PO (08:25)
[2022-09-21] MEDS: Venlafaxine XR 75 MG Capsule PO (08:25)
[2022-09-21] MEDS: amLODIPine 10 MG Tablet PO (08:25)
[2022-09-21] MEDS: Nystatin Powder 15gm Bottle 1 APPLIC TOPICAL ×2 (08:26→22:16)
[2022-09-21] MEDS: Mineral Oil/Petrolatum Cr 1.75oz Bottle 1 APPLIC TOPICAL (08:30)
[2022-09-21] MEDS: Gabapentin 100 MG Capsule 200 MG PO ×3 (08:30→18:14)
--- NOTE | 2022-09-21 10:10 | PN_ITS ---
Subjective Subjective Afebrile VSS-systolic blood pressure remains consistently above goal but diastolic is always within normal limits. Heart rate is within normal limits. Maintaining appropriate oxygen saturation on RA Oral intake is good Discussed with nursing - no problems that need addressed Reviewed the PT/OT/ST notes Medication list reviewed. The serum protein electrophoresis and immunoelectrophoresis have been reviewed. IgA is elevated at 528 and the comment on the immunofixation screen is that a monoclonal gammopathy is unclear at this time. Possible Waldenstrom's. Bone pain is rare in Waldenstroms. The MRI of the back he had at [facility] did not mention any changes in the marrow of L3 and L4.........Probably the changes are new and due to vertebral osteo even though the bone cultures and path are negative. Will have him follow up with heme/onc post DC. Objective Data Objective Data Vital Signs: Vital Signs Temp Pulse Resp BP Pulse Ox O2 Del Method 98.1 F 94 18 158/56 H 94 Room Air 09/21/22 07:25 09/21/22 07:25 09/21/22 07:25 09/21/22 07:25 09/21/22 07:25 09/21/22 07:25 Oxygen Delivery Method Room Air Weight: 241 lb 6.499 oz Body Mass Index (BMI) 30.2 Intake & Output: Intake and Output for Last 24 Hours 09/19/22 09/20/22 09/21/22 23:59 23:59 23:59 Intake Total 3727 / 3727 3107 / 3107 844 / 844 Output Total 2049 / 2049 2900 / 2900 1400 / 1400 Balance 1677 / 1677 207 / 207 -556 / -556 Medical Nutrition Assessment Dietitian: Malnutrition Criteria Met Start: 09/16/22 15:12 Freq: Status: Active Protocol: Document 09/16/22 15:12 LO (Rec: 09/16/22 15:12 LO [id number]) Nutrition Malnutrition Evidence of Malnutrition Exists Yes Malnutrition (moderate): Acute Illness/Injury Evidenced By Suboptimal Energy Intake ( Moderate),Weight Loss (Severe) Clinical Problem Acute Disease or Injury Related Malnutrition Etiology moderate related to suboptimal appetite Signs/Symptoms as evidenced by <75% PO intake of estimated energy needs for >7 days and 17lbs (5.2%) weight loss in 1 month Status Active Problem Recommendation Dietitian Recommendations/Changes Continue Cardiac diet to manage medical conditions. Will hold off on ONS at this time due to adequate PO intakes and reassess at follow -up. Lab / Micro Data 09/16/22 05:34 09/16/22 05:34 Micro: Microbiology 09/16/22 03:15 Urine, Clean Catch Urine Culture - Final Culture exhibits no growth. Assessment & Plan Assessment/Plan (1) Physical debility: (2) Septic shock: (3) HCAP (healthcare-associated pneumonia): (4) ARF (acute respiratory failure): QUALIFIERS: Respiratory failure complication: hypoxia and hypercapnia Qualified Code(s): J96.01 - Acute respiratory failure with hypoxia; J96.02 - Acute respiratory failure with hypercapnia (5) Acute renal failure: QUALIFIERS: Acute renal failure type: unspecified Qualified Code(s): N17.9 - Acute kidney failure, unspecified (6) Malnutrition: QUALIFIERS: Malnutrition type: protein-calorie malnutrition Protein-calorie malnutrition severity: severe Qualified Code(s): E43 - Unspecified severe protein-calorie malnutrition (7) Aortic valve endocarditis: (8) Aortic valve regurgitation: QUALIFIERS: Cardiac valve disease etiology: nonrheumatic Qualified Code(s): I35.1 - Nonrheumatic aortic (valve) insufficiency (9) Urinary urgency: (10) Internal and external bleeding hemorrhoids: (11) Colon polyp: QUALIFIERS: Colon polyp type: unspecified Colon location: transverse Qualified Code(s): K63.5 - Polyp of colon (12) Stroke/cerebrovascular accident: QUALIFIERS: CVA mechanism: embolism Precerebral and cerebral artery: middle cerebral artery (13) Anemia: QUALIFIERS: Anemia type: unspecified type Qualified Code(s): D64.9 - Anemia, unspecified (14) Vertebral osteomyelitis, acute: (15) 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: (16) PFO (patent foramen ovale): (17) Hypertension: QUALIFIERS: Hypertension type: primary hypertension Qualified Code(s): I10 - Essential (primary) hypertension (18) Hyperuricemia: (19) Gout: QUALIFIERS: Gout site: multiple sites Gout etiology: other secondary cause Chronicity: chronic Presence of tophus: without tophus Qualified Code(s): M1A.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 PLAN: Plan 1. Continue therapy 2. Increase Cozaar to 100 mg p.o. daily and give an extra 50 mg today for a total of 100 mg today. 3. Weekly labs ordered for Wednesday. 4. Follow up with heme/onc post DC re: elevated IGA. Charges/Coding Visit Charges Inpatient E&M: 04611 Subs Hosp L2
[2022-09-21] MEDS: oxyCODONE HCl Cr 10 MG Tablet PO ×2 (10:22→22:15)
[2022-09-21] MEDS: 0.9% Saline Lock 10 ML Syringe IV (10:22)
[2022-09-21] MEDS: Ferrous Sulfate 325 MG Tablet PO (12:48)
[2022-09-21] MEDS: Ascorbic Acid 500 MG Tablet 1000 MG PO (12:49)
[2022-09-21 15:07] VITALS: BMI 30.2
[2022-09-21 22:00] VITALS: BP 146/57; PULSE 84; RESP 16; TEMP 36.8; O2SAT 95; BMI 30.2
[2022-09-21] MEDS: Polyethylene Glycol 3350 17 GM PACKET PO (22:15)
[2022-09-21] MEDS: Senna/Docusate Sodium 1 Tablet 2 TABLET PO (22:16)
[2022-09-21] MEDS: Atorvastatin Calcium 40 MG Tablet PO (22:16)
[2022-09-21] MEDS: traZODone 100 MG Tablet PO (22:16)
[2022-09-22] MEDS: oxyCODONE 5 MG Tablet 10 MG PO ×3 (05:19→17:59)
[2022-09-22] MEDS: Baclofen 10 MG Tablet 5 MG PO ×3 (05:20→21:26)
[2022-09-22 07:45] VITALS: BP 145/64; PULSE 92; RESP 16; TEMP 36.9; O2SAT 95
[2022-09-22] MEDS: 0.9% Saline Lock 10 ML Syringe IV (08:07)
[2022-09-22] MEDS: APIXABAN 5 MG TABLET PO ×2 (08:09→21:25)
[2022-09-22] MEDS: Fenofibrate 48 MG Tablet PO (08:09)
[2022-09-22] MEDS: amLODIPine 10 MG Tablet PO (08:10)
[2022-09-22] MEDS: Potassium Chloride Oral Tablet 20 MEQ PO (08:10)
[2022-09-22] MEDS: Clopidogrel Bisulfate 75 MG Tablet PO (08:10)
[2022-09-22] MEDS: Celecoxib 100 MG Capsule PO (08:11)
[2022-09-22] MEDS: Losartan Potassium 100 MG Tablet PO (08:11)
[2022-09-22] MEDS: Pantoprazole Sodium 40 MG Tablet PO (08:11)
[2022-09-22] MEDS: Nystatin Powder 15gm Bottle 1 APPLIC TOPICAL ×2 (08:12→21:26)
[2022-09-22] MEDS: Venlafaxine XR 75 MG Capsule PO (08:13)
[2022-09-22] MEDS: Gabapentin 100 MG Capsule 200 MG PO ×3 (08:19→18:00)
[2022-09-22] MEDS: oxyCODONE HCl Cr 10 MG Tablet PO ×2 (10:18→21:26)
[2022-09-22] MEDS: Ascorbic Acid 500 MG Tablet 1000 MG PO (12:31)
[2022-09-22] MEDS: Ferrous Sulfate 325 MG Tablet PO (12:31)
[2022-09-22 17:00] VITALS: BMI 30.2
[2022-09-22 19:54] VITALS: BP 132/60; PULSE 85; RESP 14; TEMP 37.1; O2SAT 93
[2022-09-22] MEDS: Doxazosin 1 MG Tablet PO (21:25)
[2022-09-22] MEDS: traZODone 100 MG Tablet PO (21:25)
[2022-09-22] MEDS: Atorvastatin Calcium 40 MG Tablet PO (21:26)
[2022-09-23] MEDS: Baclofen 10 MG Tablet 5 MG PO ×3 (05:46→21:29)
[2022-09-23 05:52] LABS: Absolute Lymphocyte Count 1.06 X10^3/uL (0.83-4.51); Absolute Neutrophil Count 5.6 X10^3/uL (2.0-7.7); Basophil# 0.04 X10^3/uL; Basophil% 0.5 % (0-1); Eosinophil# 0.31 X10^3/uL; Eosinophils% 4.1 % (0-5); Hematocrit 25.8 % (40-54); Hemoglobin 7.5 g/dL (13.0-16.5); Lymphocyte # 1.06 X10^3/ul (0.83-4.51); Lymphocyte % 13.9 % (19-41); Mean Corp Hgb Conc 29.1 g/dL (32-36); Mean Corpuscular Hgb 24.8 pg (27.0-32.0); Mean Corpuscular Volume 85.1 fL (80-94); Mean Platelet Vol. 10.9 fl (6.2-12.0); Monocyte# 0.57 X10^3/uL; Monocyte% 7.5 % (0-10); NRBC Flagged by Analyzer 0 % (0-5); Neutrophil # 5.61 X10^3/uL (2.7-7.7); Neutrophil % 73.6 % (47-70); Platelet Count 318 K/mm3 (150-450); RBC Distribution Width CV 18.6 % (11.6-14.6); RBC Distribution Width SD 57.4 fl (35.1-43.9); Red Blood Count 3.03 M/mm3 (4.6-6.2); White Blood Count 7.6 K/mm3 (4.4-11.0)
[2022-09-23 06:00] VITALS: BMI 38.7
[2022-09-23] MEDS: oxyCODONE 5 MG Tablet 10 MG PO ×3 (06:03→17:39)
[2022-09-23 06:52] LABS: ALB/GLOB Ratio 0.4 RATIO (0.9-2.4); AST(SGOT) 15 U/L (15-37); Alanine Aminotransfer ALT/SGPT 11 U/L (16-61); Albumin, Serum 2.2 g/dL (3.2-5.0); Alkaline Phosphatase 98 U/L (45-117); Anion Gap 5 (5-15); BUN 7 mg/dL (7-18); BUN/Creat Ratio 5.9 RATIO (10-20); CPK Total, Creatine Kinase 30 U/L (39-308); Calcium,Total 8.9 mg/dL (8.5-10.1); Chloride 112 mmol/L (98-107); Creatinine, Serum 1.18 mg/dL (0.70-1.30); EST Glomerular Filtration Rate 67 mL/min (>60); Est Glom Filt Rate - Afr Amer 81 mL/min (>60); Estimated Creatinine Clearance 81.56 ml/min; Glucose 90 mg/dL (74-106); Potassium 3.5 mmol/L (3.5-5.1); Protein, Total 7.2 g/dL (6.4-8.2); Sodium Level 145 mmol/L (136-145)
[2022-09-23 07:57] VITALS: BP 145/55; PULSE 65; RESP 18; TEMP 37.1; O2SAT 92
[2022-09-23] MEDS: Potassium Chloride Oral Tablet 20 MEQ PO (08:30)
[2022-09-23] MEDS: Losartan Potassium 100 MG Tablet PO (08:30)
[2022-09-23] MEDS: Venlafaxine XR 75 MG Capsule PO (08:30)
[2022-09-23] MEDS: Celecoxib 100 MG Capsule PO (08:30)
[2022-09-23] MEDS: Clopidogrel Bisulfate 75 MG Tablet PO (08:30)
[2022-09-23] MEDS: Fenofibrate 48 MG Tablet PO (08:30)
[2022-09-23] MEDS: amLODIPine 10 MG Tablet PO (08:30)
[2022-09-23] MEDS: Pantoprazole Sodium 40 MG Tablet PO (08:30)
[2022-09-23] MEDS: APIXABAN 5 MG TABLET PO ×2 (08:30→21:29)
[2022-09-23] MEDS: Gabapentin 100 MG Capsule 200 MG PO ×3 (08:33→17:38)
--- NOTE | 2022-09-23 08:35 | CASEMGMT ---
Social Work Phoned [employer] to follow up on pricing for IV ATB. Spoke with [employer] - pt met his deductible and has 100% coverage. SW to follow up with pt and IDT on DC plans. Samaria Ellington ,DAIRY TECHNICIAN FORENSIC CHEMIST
[2022-09-23] MEDS: Nystatin Powder 15gm Bottle 1 APPLIC TOPICAL ×2 (08:36→23:03)
[2022-09-23] MEDS: oxyCODONE HCl Cr 10 MG Tablet PO (10:13)
[2022-09-23] MEDS: 0.9% Saline Lock 10 ML Syringe IV (11:01)
[2022-09-23] MEDS: Ferrous Sulfate 325 MG Tablet PO (11:58)
[2022-09-23] MEDS: Ascorbic Acid 500 MG Tablet 1000 MG PO (11:58)
--- NOTE | 2022-09-23 12:54 | PN_ITS ---
Subjective Subjective Afebrile VSS Maintaining appropriate oxygen saturation on RA Oral intake is good Discussed with nursing - no problems that need addressed Reviewed the PT/OT/ST notes Medication list reviewed. Started on Cardura 1 mg p.o. nightly yesterday for mildly elevated blood pressure. All lab today was personally reviewed. The white blood cell count is normal at 7.6. He has 73.6% neutrophils and immature granulocytes are within normal limits. Hemoglobin is 7.5 today, down from 8.1 on 09/16/2022. ESR is 47. Sodium is within normal limits but the potassium is borderline low at 3.5. The BUN is 7 with a creatinine of 1.18 which is down from 1.26 last week. LFTs are normal. CRP today is 54.2 which is down from 109 last week. Al continues to complain of pain that is 7-8 in intensity. This is despite scheduling oxycodone 10 mg 3 times daily during the hours he receives therapy because he was not asking for as needed medication. He tells me he is sleeping well. He is also doing very well in therapy. He denies lightheadedness, drowsiness, chest pain, shortness of breath, cough, nausea/vomiting/abdominal pain, dysuria and calf pain. Objective Data Objective Data Vital Signs: Vital Signs Temp Pulse Resp BP Pulse Ox O2 Del Method 98.7 F 65 18 145/55 H 92 Room Air 09/23/22 07:57 09/23/22 07:57 09/23/22 07:57 09/23/22 07:57 09/23/22 07:57 09/23/22 07:57 Oxygen Delivery Method Room Air Weight: 309 lb 8.464 oz Body Mass Index (BMI) 38.7 Intake & Output: Intake and Output for Last 24 Hours 09/21/22 09/22/22 09/23/22 23:59 23:59 23:59 Intake Total 2387 / 2387 1917 / 1917 1705 / 1705 Output Total 2700 / 3000 2750 / 2750 1300 / 1300 Balance -313 / -613 -833 / -833 405 / 405 Medical Nutrition Assessment Dietitian: Malnutrition Criteria Met Start: 09/16/22 15:12 Freq: Status: Active Protocol: Document 09/16/22 15:12 LO (Rec: 09/16/22 15:12 LO [id number]) Nutrition Malnutrition Evidence of Malnutrition Exists Yes Malnutrition (moderate): Acute Illness/Injury Evidenced By Suboptimal Energy Intake ( Moderate),Weight Loss (Severe) Clinical Problem Acute Disease or Injury Related Malnutrition Etiology moderate related to suboptimal appetite Signs/Symptoms as evidenced by <75% PO intake of estimated energy needs for >7 days and 17lbs (5.2%) weight loss in 1 month Status Active Problem Recommendation Dietitian Recommendations/Changes Continue Cardiac diet to manage medical conditions. Will hold off on ONS at this time due to adequate PO intakes and reassess at follow -up. Lab / Micro Data 09/23/22 05:25 09/23/22 05:25 Labs: Laboratory Results - last 24 hr 09/23/22 05:25: WBC 7.6, RBC 3.03 L, Hgb 7.5 L, Hct 25.8 L, MCV 85.1, MCH 24.8 L , MCHC 29.1 L, RDW Std Deviation 57.4 H, RDW Coeff of Ghassan 18.6 H, Plt Count 318, MPV 10.9, Immature Gran % (Auto) 0.400, Neut % (Auto) 73.6 H, Lymph % (Auto) 13.9 L, Starr % (Auto) 7.5, Eos % (Auto) 4.1, Baso % (Auto) 0.5, Absolute Neuts (auto) 5.6, Absolute Lymphs (auto) 1.06, Nucleated RBC % 0, Sodium 145, Potassium 3.5, Chloride 112 H, Carbon Dioxide 28.0, Anion Gap 5, BUN 7, Creatinine 1.18, Estim Creat Clear Calc 81.56, Est GFR (MDRD) Af Amer 81, Est GFR (MDRD) Non-Af 67, BUN/Creatinine Ratio 5.9 L, Glucose 90, Calcium 8.9, Total Bilirubin 0.20, AST 15, ALT 11 L, Alkaline Phosphatase 98, Total Creatine Kinase 30 L, C-React Prot Ext Range 54.20 H, Total Protein 7.2, Albumin 2.2 L, Globulin 5.0 H, Albumin/Globulin Ratio 0.4 L Micro: Microbiology 09/16/22 03:15 Urine, Clean Catch Urine Culture - Final Culture exhibits no growth. Physical Exam Const alert, oriented x3 and no apparent distress General Appearance: cooperative Resp normal respiratory effort and clear to auscultation bilaterally Effort and Inspection: Negative for tachypneic Auscultation: diminished lung sounds Cardio regular rate, regular rhythm and no gallops GI normal to inspection, nondistended, normoactive bowel sounds, soft to palpation and non-tender GI Narrative: Denies constipation. Extremity no calf tenderness General Extremity: Negative for edema Skin General Skin Exam: no breakdown Rashes: no rashes Psych thought process normal and affect normal Appearance: appropriate Assessment & Plan Assessment/Plan (1) Physical debility: (2) Septic shock: (3) HCAP (healthcare-associated pneumonia): (4) ARF (acute respiratory failure): QUALIFIERS: Respiratory failure complication: hypoxia and hypercapnia Qualified Code(s): J96.01 - Acute respiratory failure with hypoxia; J96.02 - Acute respiratory failure with hypercapnia (5) Acute renal failure: QUALIFIERS: Acute renal failure type: unspecified Qualified Code(s): N17.9 - Acute kidney failure, unspecified (6) Malnutrition: QUALIFIERS: Malnutrition type: protein-calorie malnutrition Protein-calorie malnutrition severity: severe Qualified Code(s): E43 - Unspecified severe protein-calorie malnutrition (7) Aortic valve endocarditis: (8) Aortic valve regurgitation: QUALIFIERS: Cardiac valve disease etiology: nonrheumatic Qualified Code(s): I35.1 - Nonrheumatic aortic (valve) insufficiency (9) Urinary urgency: (10) Internal and external bleeding hemorrhoids: (11) Colon polyp: QUALIFIERS: Colon polyp type: unspecified Colon location: transverse Qualified Code(s): K63.5 - Polyp of colon (12) Stroke/cerebrovascular accident: QUALIFIERS: CVA mechanism: embolism Precerebral and cerebral artery: middle cerebral artery (13) Anemia: QUALIFIERS: Anemia type: unspecified type Qualified Code(s): D64.9 - Anemia, unspecified (14) Vertebral osteomyelitis, acute: (15) 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: (16) PFO (patent foramen ovale): (17) Hypertension: QUALIFIERS: Hypertension type: primary hypertension Qualified Code(s): I10 - Essential (primary) hypertension (18) Hyperuricemia: (19) Gout: QUALIFIERS: Gout site: multiple sites Gout etiology: other secondary cause Chronicity: chronic Presence of tophus: without tophus Qualified Code(s): M1A.49X0 - Other secondary chronic gout, multiple sites, wi thout tophus (tophi) (20) GERD (gastroesophageal reflux disease): QUALIFIERS: Esophagitis presence: without esophagitis Qualified Code(s): K21.9 - Gastro-esophageal reflux disease without esophagitis (21) COPD (chronic obstructive pulmonary disease): QUALIFIERS: COPD type: unspecified COPD Qualified Code(s): J44.9 - Chronic obstructive pulmonary disease, unspecified (22) Chronic anticoagulation: (23) Elevated anti-tissue transglutaminase (tTG) IgA level: PLAN: Will follow up with heme/onc post DC. PLAN: Plan 1. Continue therapy 2. Increase OxyContin to 15 mg every 12 hours and continue scheduled oxycodone 3 times daily. He will follow up with Dr. Russo post DC fro pain management. 3. He denies SOB and lightheadedness. Denies hematochezia. No transfusion at this time. Recheck in 1 week. Transfuse if less than 7. Charges/Coding Visit Charges Inpatient E&M: 76903 Subs Hosp L2
[2022-09-23 14:21] VITALS: BMI 38.7
[2022-09-23 15:24] LABS: Erythrocyte Sedimentation Rate 47 mm/hr (0-20)
[2022-09-23 19:26] VITALS: BP 119/47; PULSE 83; RESP 16; TEMP 36.9; O2SAT 95
[2022-09-23] MEDS: traZODone 100 MG Tablet PO (21:29)
[2022-09-23] MEDS: Doxazosin 1 MG Tablet PO (21:29)
[2022-09-23] MEDS: Atorvastatin Calcium 40 MG Tablet PO (21:30)
[2022-09-23] MEDS: oxyCODONE CR 15 MG Tablet PO (21:30)
[2022-09-24] MEDS: Baclofen 10 MG Tablet 5 MG PO ×3 (05:12→21:06)
[2022-09-24] MEDS: oxyCODONE 5 MG Tablet 10 MG PO ×3 (05:13→17:28)
[2022-09-24 08:06] VITALS: BP 111/55; PULSE 85; RESP 18; TEMP 37.1; O2SAT 100
[2022-09-24] MEDS: Clopidogrel Bisulfate 75 MG Tablet PO (10:12)
[2022-09-24] MEDS: Potassium Chloride Oral Tablet 20 MEQ PO (10:12)
[2022-09-24] MEDS: Pantoprazole Sodium 40 MG Tablet PO (10:12)
[2022-09-24] MEDS: Senna/Docusate Sodium 1 Tablet 2 TABLET PO ×2 (10:13→21:05)
[2022-09-24] MEDS: Fenofibrate 48 MG Tablet PO (10:13)
[2022-09-24] MEDS: amLODIPine 10 MG Tablet PO (10:13)
[2022-09-24] MEDS: oxyCODONE CR 15 MG Tablet PO ×2 (10:13→21:06)
[2022-09-24] MEDS: Celecoxib 100 MG Capsule PO (10:13)
[2022-09-24] MEDS: Gabapentin 100 MG Capsule 200 MG PO ×3 (10:13→17:28)
[2022-09-24] MEDS: APIXABAN 5 MG TABLET PO ×2 (10:13→21:06)
[2022-09-24] MEDS: Venlafaxine XR 150 MG Capsule PO (10:13)
[2022-09-24] MEDS: Losartan Potassium 100 MG Tablet PO (10:13)
[2022-09-24] MEDS: Nystatin Powder 15gm Bottle 1 APPLIC TOPICAL ×2 (10:21→21:07)
[2022-09-24] MEDS: Ferrous Sulfate 325 MG Tablet PO (12:09)
[2022-09-24] MEDS: Ascorbic Acid 500 MG Tablet 1000 MG PO (12:09)
--- NOTE | 2022-09-24 13:24 | CASEMGMT ---
Social Work IDT met with patient and for Team meeting. Discussed patient's progress in PT/OT/ST/SN. Educated to commercial insurance with [employer] 09/29 and continued stay is not guaranteed with each review. SW educated that insurance will cover IV ATB at 100% at home since pt has met his deductible. SW offered to set DC date and coordinate [facility] PT/OT/ST/SN. Nursing and Dr noted that pt's port clots very easily and quickly and requiring the skill of a nurse and Dr. and pt prefer pt remains in RU until end of IVs on 10/08. IDT agreed. SW will continue to follow. Will ReTeam. Plan: EDC 10/09 home with Samaria Ellington, [employer]KER AND [employer]PA[employer] PLAYER SERVICES REPRESENTATIVE
--- NOTE | 2022-09-24 15:05 | PCM.PROGNOTE ---
Subjective Subjective Al was seen on team rounds today. His Lise was present in the room. Afebrile VSS-the last 2 blood pressures have been at goal with the addition of Cardura 1 mg at bedtime. Maintaining appropriate oxygen saturation on RA Oral intake is good Discussed with nursing - no problems that need addressed Reviewed the PT/OT/ST notes Medication list reviewed. Al tells me and also told Lise that the pain is better with the increase in the Oxycontin to 15 mg Q 12H. He denies CP, SOB, lightheadedness, vertigo, MONTOYA, sore mouth, diarrhea, abd pain and hematochezia. Objective Data Objective Data Vital Signs: Vital Signs Temp Pulse Resp BP Pulse Ox O2 Del Method 98.8 F 85 18 111/55 L 100 Room Air 09/24/22 08:06 09/24/22 08:06 09/24/22 08:06 09/24/22 08:06 09/24/22 08:06 09/24/22 08:06 Oxygen Delivery Method Room Air Weight: 309 lb 8.464 oz Body Mass Index (BMI) 38.7 Intake & Output: Intake and Output for Last 24 Hours 09/22/22 09/23/22 09/24/22 23:59 23:59 23:59 Intake Total 1917 / 1917 2409 / 2409 1273 / 1273 Output Total 2750 / 2750 1300 / 1300 1500 / 1500 Balance -833 / -833 1109 / 1109 -227 / -227 Medical Nutrition Assessment Dietitian: Malnutrition Criteria Met Start: 09/16/22 15:12 Freq: Status: Active Protocol: Document 09/16/22 15:12 LO (Rec: 09/16/22 15:12 [id number]) Nutrition Malnutrition Evidence of Malnutrition Exists Yes Malnutrition (moderate): Acute Illness/Injury Evidenced By Suboptimal Energy Intake ( Moderate),Weight Loss (Severe) Clinical Problem Acute Disease or Injury Related Malnutrition Etiology moderate related to suboptimal appetite Signs/Symptoms as evidenced by <75% PO intake of estimated energy needs for >7 days and 17lbs (5.2%) weight loss in 1 month Status Active Problem Recommendation Dietitian Recommendations/Changes Continue Cardiac diet to manage medical conditions. Will hold off on ONS at this time due to adequate PO intakes and reassess at follow -up. Lab / Micro Data 09/23/22 05:25 09/23/22 05:25 Labs: Laboratory Results - last 24 hr 09/23/22 05:25: ESR 47 H Micro: Microbiology 09/16/22 03:15 Urine, Clean Catch Urine Culture - Final Culture exhibits no growth. Physical Exam Const alert and no apparent distress General Appearance: cooperative HEENT moist oral mucous membranes Resp normal respiratory effort, no use of accessory muscles and clear to auscultation bilaterally Effort and Inspection: Negative for tachypneic, respiratory distress or labored Auscultation: diminished lung sounds Cardio regular rate, regular rhythm and no gallops Cardio Narrative: Not tachycardic and no ectopy. Heart sounds are little distant and I suspect this is secondary to body habitus. GI normal to inspection, nondistended, normoactive bowel sounds, non-tender and non-distended GI Narrative: no guarding with palpation Extremity Negative for no calf tenderness General Extremity: Negative for edema Skin General Skin Exam: no breakdown Rashes: no rashes Psych affect normal Assessment & Plan Assessment/Plan (1) Physical debility: (2) Septic shock: (3) HCAP (healthcare-associated pneumonia): (4) ARF (acute respiratory failure): QUALIFIERS: Respiratory failure complication: hypoxia and hypercapnia Qualified Code(s): J96.01 - Acute respiratory failure with hypoxia; J96.02 - Acute respiratory failure with hypercapnia (5) Acute renal failure: QUALIFIERS: Acute renal failure type: unspecified Qualified Code(s): N17.9 - Acute kidney failure, unspecified (6) Malnutrition: QUALIFIERS: Malnutrition type: protein-calorie malnutrition Protein-calorie malnutrition severity: severe Qualified Code(s): E43 - Unspecified severe protein-calorie malnutrition (7) Aortic valve endocarditis: (8) Aortic valve regurgitation: QUALIFIERS: Cardiac valve disease etiology: nonrheumatic Qualified Code(s): I35.1 - Nonrheumatic aortic (valve) insufficiency (9) Urinary urgency: (10) Internal and external bleeding hemorrhoids: (11) Colon polyp: QUALIFIERS: Colon polyp type: unspecified Colon location: transverse Qualified Code(s): K63.5 - Polyp of colon (12) Stroke/cerebrovascular accident: QUALIFIERS: CVA mechanism: embolism Precerebral and cerebral artery: middle cerebral artery (13) Anemia: QUALIFIERS: Anemia type: unspecified type Qualified Code(s): D64.9 - Anemia, unspecified (14) Vertebral osteomyelitis, acute: (15) 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: (16) PFO (patent foramen ovale): (17) Hypertension: QUALIFIERS: Hypertension type: primary hypertension Qualified Code(s): I10 - Essential (primary) hypertension (18) Hyperuricemia: (19) Gout: QUALIFIERS: Gout site: multiple sites Gout etiology: other secondary cause Chronicity: chronic Presence of tophus: without tophus Qualified Code(s): M1A.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 PLAN: Plan 1. Continue therapy 2. We discussed whether Albaro would like to go home and have [facility] administer his intravenous antibiotics or whether he would like to stay in the hospital to finish the full course of IV antibiotics. Nursing tells me that the PICC line is kind of sensitive and has clotted off a few times. Both Leandro Lezama would like Al to remain in the hospital until the antibiotics are concluded. 3. We discussed the elevated IgA and what that could mean. They are agreeable to following up with oncology postdischarge. 4. Al feels better with the increase in the OxyContin. He has seen Dr. Gunderson in the past for epidurals but tells me that Dr. Gunderson would not prescribe pain medication. He is okay with following up with Dr. Russo post discharge. 5. The changes in L3 and L4 vertebrae were not present on an MRI of the back he had at the [facility]. They certainly may be due to vertebral osteomyelitis but the culture was negative and the pathology was noncontributory due to marked crush effect on the bx. There is a lot of change in those 2 vertebrae and I am wondering if they are susceptible to collapse. He had to cancel his appt at the [facility] because he was in the hospital. He was being evaluated for surgery on his back. I advised him to follow up there for an opinion on the status of L3 and L4 and if any intervention is required. Charges/Coding Visit Charges Inpatient E&M: 31957 Subs Hosp L2
[2022-09-24 15:52] VITALS: BMI 38.7
[2022-09-24 19:26] VITALS: BP 112/58; PULSE 81; RESP 16; TEMP 37.1; O2SAT 94
[2022-09-24] MEDS: 0.9% Saline Lock 10 ML Syringe IV (21:01)
[2022-09-24] MEDS: Doxazosin 1 MG Tablet PO (21:06)
[2022-09-24] MEDS: Polyethylene Glycol 3350 17 GM PACKET PO (21:06)
[2022-09-24] MEDS: traZODone 100 MG Tablet PO (21:06)
[2022-09-24] MEDS: Atorvastatin Calcium 40 MG Tablet PO (21:06)
[2022-09-24 21:14] VITALS: BMI 38.7
[2022-09-24 22:00] VITALS: PULSE 83; RESP 16; O2SAT 95
[2022-09-25] MEDS: Baclofen 10 MG Tablet 5 MG PO ×3 (05:24→22:32)
[2022-09-25] MEDS: oxyCODONE 5 MG Tablet 10 MG PO ×3 (05:25→17:21)
[2022-09-25 08:31] VITALS: BP 124/58; PULSE 93; RESP 16; TEMP 36.9; O2SAT 96
[2022-09-25] MEDS: APIXABAN 5 MG TABLET PO ×2 (09:02→22:26)
[2022-09-25] MEDS: Potassium Chloride Oral Tablet 20 MEQ PO (09:02)
[2022-09-25] MEDS: Venlafaxine XR 150 MG Capsule PO (09:03)
[2022-09-25] MEDS: Nystatin Powder 15gm Bottle 1 APPLIC TOPICAL ×2 (09:03→22:28)
[2022-09-25] MEDS: amLODIPine 10 MG Tablet PO (09:03)
[2022-09-25] MEDS: Celecoxib 100 MG Capsule PO (09:04)
[2022-09-25] MEDS: Losartan Potassium 100 MG Tablet PO (09:04)
[2022-09-25] MEDS: Fenofibrate 48 MG Tablet PO (09:04)
[2022-09-25] MEDS: Pantoprazole Sodium 40 MG Tablet PO (09:04)
[2022-09-25] MEDS: Clopidogrel Bisulfate 75 MG Tablet PO (09:05)
[2022-09-25] MEDS: Senna/Docusate Sodium 1 Tablet 2 TABLET PO ×2 (09:05→22:32)
[2022-09-25] MEDS: Gabapentin 100 MG Capsule 200 MG PO ×3 (09:14→17:20)
[2022-09-25] MEDS: oxyCODONE CR 15 MG Tablet PO ×2 (09:24→22:25)
[2022-09-25] MEDS: Ferrous Sulfate 325 MG Tablet PO (11:29)
[2022-09-25] MEDS: Ascorbic Acid 500 MG Tablet 1000 MG PO (11:29)
[2022-09-25 13:15] VITALS: BMI 38.7
[2022-09-25 18:57] VITALS: BP 112/53; PULSE 85; RESP 16; TEMP 37.1; O2SAT 95
[2022-09-25 22:00] VITALS: PULSE 73; RESP 16; O2SAT 96
[2022-09-25] MEDS: traZODone 100 MG Tablet PO (22:26)
[2022-09-25] MEDS: Doxazosin 1 MG Tablet PO (22:26)
[2022-09-25] MEDS: Polyethylene Glycol 3350 17 GM PACKET PO (22:26)
[2022-09-25] MEDS: 0.9% Saline Lock 10 ML Syringe IV (22:27)
[2022-09-25] MEDS: Atorvastatin Calcium 40 MG Tablet PO (22:28)
[2022-09-25 22:57] VITALS: BMI 38.7
[2022-09-26] MEDS: Baclofen 10 MG Tablet 5 MG PO ×3 (06:19→22:19)
[2022-09-26] MEDS: oxyCODONE 5 MG Tablet 10 MG PO ×3 (06:19→18:58)
[2022-09-26 10:00] VITALS: BP 143/54; PULSE 85; RESP 15; TEMP 36.6; O2SAT 95
[2022-09-26] MEDS: Potassium Chloride Oral Tablet 20 MEQ PO (10:44)
[2022-09-26] MEDS: Fenofibrate 48 MG Tablet PO (10:44)
[2022-09-26] MEDS: Celecoxib 100 MG Capsule PO (10:44)
[2022-09-26] MEDS: APIXABAN 5 MG TABLET PO ×2 (10:45→22:20)
[2022-09-26] MEDS: Venlafaxine XR 150 MG Capsule PO (10:45)
[2022-09-26] MEDS: Losartan Potassium 100 MG Tablet PO (10:45)
[2022-09-26] MEDS: Senna/Docusate Sodium 1 Tablet 2 TABLET PO ×2 (10:45→22:20)
[2022-09-26] MEDS: amLODIPine 10 MG Tablet PO (10:45)
[2022-09-26] MEDS: Pantoprazole Sodium 40 MG Tablet PO (10:45)
[2022-09-26] MEDS: Clopidogrel Bisulfate 75 MG Tablet PO (10:45)
[2022-09-26] MEDS: Gabapentin 100 MG Capsule 200 MG PO ×3 (10:54→18:58)
[2022-09-26] MEDS: oxyCODONE CR 15 MG Tablet PO ×2 (11:03→22:22)
[2022-09-26] MEDS: Nystatin Powder 15gm Bottle 1 APPLIC TOPICAL ×2 (11:08→22:18)
[2022-09-26] MEDS: Ferrous Sulfate 325 MG Tablet PO (11:39)
[2022-09-26] MEDS: Ascorbic Acid 500 MG Tablet 1000 MG PO (11:39)
[2022-09-26] MEDS: 0.9% Saline Lock 10 ML Syringe IV ×2 (11:40→22:24)
[2022-09-26 14:06] VITALS: BMI 38.7
[2022-09-26 22:00] VITALS: BP 119/53; PULSE 74; RESP 15; RESP 17; TEMP 37.2; O2SAT 95
[2022-09-26] MEDS: traZODone 100 MG Tablet PO (22:20)
[2022-09-26] MEDS: Doxazosin 1 MG Tablet PO (22:22)
[2022-09-26] MEDS: Polyethylene Glycol 3350 17 GM PACKET PO (22:23)
[2022-09-26] MEDS: Atorvastatin Calcium 40 MG Tablet PO (22:23)
[2022-09-26 22:55] VITALS: BMI 38.7
[2022-09-27] MEDS: oxyCODONE 5 MG Tablet 10 MG PO ×3 (06:42→17:27)
[2022-09-27] MEDS: Baclofen 10 MG Tablet 5 MG PO ×3 (06:46→22:17)
[2022-09-27] MEDS: 0.9% Saline Lock 10 ML Syringe IV (07:00)
[2022-09-27 07:21] VITALS: BP 157/67; PULSE 87; RESP 16; TEMP 37.2; O2SAT 95
[2022-09-27] MEDS: Potassium Chloride Oral Tablet 20 MEQ PO (08:08)
[2022-09-27] MEDS: Gabapentin 100 MG Capsule 200 MG PO ×3 (08:12→17:27)
[2022-09-27] MEDS: Fenofibrate 48 MG Tablet PO (08:12)
[2022-09-27 10:00] VITALS: PULSE 72
[2022-09-27] MEDS: oxyCODONE CR 15 MG Tablet PO ×2 (10:20→22:15)
[2022-09-27] MEDS: APIXABAN 5 MG TABLET PO ×2 (10:21→22:18)
[2022-09-27] MEDS: Venlafaxine XR 150 MG Capsule PO (10:22)
[2022-09-27] MEDS: Losartan Potassium 100 MG Tablet PO (10:22)
[2022-09-27] MEDS: Pantoprazole Sodium 40 MG Tablet PO (10:22)
[2022-09-27] MEDS: Celecoxib 100 MG Capsule PO (10:22)
[2022-09-27] MEDS: Clopidogrel Bisulfate 75 MG Tablet PO (10:22)
[2022-09-27] MEDS: Senna/Docusate Sodium 1 Tablet 2 TABLET PO ×2 (10:23→22:18)
[2022-09-27] MEDS: amLODIPine 10 MG Tablet PO (10:23)
[2022-09-27] MEDS: Nystatin Powder 15gm Bottle 1 APPLIC TOPICAL ×2 (10:25→22:19)
[2022-09-27] MEDS: Ferrous Sulfate 325 MG Tablet PO (13:02)
[2022-09-27] MEDS: Ascorbic Acid 500 MG Tablet 1000 MG PO (13:02)
[2022-09-27 16:14] VITALS: BMI 38.7
[2022-09-27 20:44] VITALS: PULSE 76; RESP 16; O2SAT 96
[2022-09-27 22:00] VITALS: BP 132/44; PULSE 76; RESP 18; TEMP 36.6; O2SAT 94
[2022-09-27] MEDS: Atorvastatin Calcium 40 MG Tablet PO (22:18)
[2022-09-27] MEDS: traZODone 100 MG Tablet PO (22:18)
[2022-09-27] MEDS: Doxazosin 1 MG Tablet PO (22:18)
[2022-09-27] MEDS: Polyethylene Glycol 3350 17 GM PACKET PO (22:18)
[2022-09-28] MEDS: Baclofen 10 MG Tablet 5 MG PO ×3 (05:56→22:48)
[2022-09-28] MEDS: oxyCODONE 5 MG Tablet 10 MG PO ×3 (05:56→17:59)
[2022-09-28 05:57] VITALS: BMI 39.1
[2022-09-28 05:59] VITALS: BMI 39.1
[2022-09-28 08:04] VITALS: BP 124/57; PULSE 80; RESP 16; TEMP 37.2; O2SAT 95
[2022-09-28] MEDS: APIXABAN 5 MG TABLET PO ×2 (10:14→22:48)
[2022-09-28] MEDS: Pantoprazole Sodium 40 MG Tablet PO (10:14)
[2022-09-28] MEDS: Clopidogrel Bisulfate 75 MG Tablet PO (10:14)
[2022-09-28] MEDS: Celecoxib 100 MG Capsule PO (10:14)
[2022-09-28] MEDS: Losartan Potassium 100 MG Tablet PO (10:14)
[2022-09-28] MEDS: oxyCODONE CR 15 MG Tablet PO ×2 (10:14→22:48)
[2022-09-28] MEDS: Fenofibrate 48 MG Tablet PO (10:14)
[2022-09-28] MEDS: Gabapentin 100 MG Capsule 200 MG PO ×3 (10:14→17:59)
[2022-09-28] MEDS: Potassium Chloride Oral Tablet 20 MEQ PO (10:14)
[2022-09-28] MEDS: Venlafaxine XR 150 MG Capsule PO (10:14)
[2022-09-28] MEDS: amLODIPine 10 MG Tablet PO (10:14)
[2022-09-28] MEDS: Senna/Docusate Sodium 1 Tablet 2 TABLET PO ×2 (10:15→22:48)
[2022-09-28] MEDS: Nystatin Powder 15gm Bottle 1 APPLIC TOPICAL ×2 (10:19→22:49)
[2022-09-28] MEDS: Ascorbic Acid 500 MG Tablet 1000 MG PO (12:02)
[2022-09-28] MEDS: Ferrous Sulfate 325 MG Tablet PO (12:02)
--- NOTE | 2022-09-28 12:13 | PCM.PROGNOTE ---
Subjective Subjective Afebrile VSS-blood pressures have come under better control with the addition of Cardura 1 mg at at bedtime. Maintaining appropriate oxygen saturation on RA Oral intake is good Discussed with nursing - no problems that need addressed Reviewed the PT/OT/ST notes Medication list reviewed. Albaro tells me that his pain is better with the increase in the OxyContin to 15 mg twice daily. He is sleeping well at night. He denies chest pain, shortness of breath, palpitations, lightheadedness, nausea/vomiting/abdominal pain, dysuria and calf pain. He denies dyspnea on exertion, orthopnea and fatigue. Objective Data Objective Data Vital Signs: Vital Signs Temp Pulse Resp BP Pulse Ox O2 Del Method 99.0 F 80 16 124/57 H 95 Room Air 09/28/22 08:04 09/28/22 08:04 09/28/22 08:04 09/28/22 08:04 09/28/22 08:04 09/28/22 08:04 Oxygen Delivery Method Room Air Weight: 313 lb 3.2 oz Body Mass Index (BMI) 39.1 Intake & Output: Intake and Output for Last 24 Hours 09/26/22 09/27/22 09/28/22 23:59 23:59 23:59 Intake Total 2477 / 2589 2869 / 2869 1193 / 1193 Output Total 950 / 950 1175 / 1175 350 / 350 Balance 1527 / 1639 1694 / 1694 843 / 843 Medical Nutrition Assessment Dietitian: Malnutrition Criteria Met Start: 09/16/22 15:12 Freq: Status: Active Protocol: Document 09/16/22 15:12 (Rec: 09/16/22 15:12 [id number]) Nutrition Malnutrition Evidence of Malnutrition Exists Yes Malnutrition (moderate): Acute Illness/Injury Evidenced By Suboptimal Energy Intake ( Moderate),Weight Loss (Severe) Clinical Problem Acute Disease or Injury Related Malnutrition Etiology moderate related to suboptimal appetite Signs/Symptoms as evidenced by <75% PO intake of estimated energy needs for >7 days and 17lbs (5.2%) weight loss in 1 month Status Active Problem Recommendation Dietitian Recommendations/Changes Continue Cardiac diet to manage medical conditions. Will hold off on ONS at this time due to adequate PO intakes and reassess at follow -up. Lab / Micro Data 09/30/22 05:10 09/30/22 05:10 Micro: Microbiology 09/16/22 03:15 Urine, Clean Catch Urine Culture - Final Culture exhibits no growth. Physical Exam Const alert and no apparent distress General Appearance: cooperative HEENT moist oral mucous membranes Resp normal respiratory effort, no use of accessory muscles and clear to auscultation bilaterally Resp Narrative: Mildly diminished. Effort and Inspection: Negative for tachypneic or labored Cardio regular rate, regular rhythm and no gallops Cardio Narrative: He has a soft systolic MM and a diastolic MM at the second RICS. No ectopy. GI normal to inspection, nondistended, normoactive bowel sounds, non-tender and non-distended GI Narrative: no guarding with palpation Extremity Negative for no calf tenderness General Extremity: Negative for edema Skin General Skin Exam: no breakdown Rashes: no rashes Psych affect normal Assessment & Plan Assessment/Plan (1) Physical debility: (2) Septic shock: (3) HCAP (healthcare-associated pneumonia): (4) ARF (acute respiratory failure): QUALIFIERS: Respiratory failure complication: hypoxia and hypercapnia Qualified Code(s): J96.01 - Acute respiratory failure with hypoxia; J96.02 - Acute respiratory failure with hypercapnia (5) Acute renal failure: QUALIFIERS: Acute renal failure type: unspecified Qualified Code(s): N17.9 - Acute kidney failure, unspecified (6) Malnutrition: QUALIFIERS: Malnutrition type: protein-calorie malnutrition Protein-calorie malnutrition severity: severe Qualified Code(s): E43 - Unspecified severe protein-calorie malnutrition (7) Aortic valve endocarditis: (8) Aortic valve regurgitation: QUALIFIERS: Cardiac valve disease etiology: nonrheumatic Qualified Code(s): I35.1 - Nonrheumatic aortic (valve) insufficiency (9) Urinary urgency: (10) Internal and external bleeding hemorrhoids: (11) Colon polyp: QUALIFIERS: Colon polyp type: unspecified Colon location: transverse Qualified Code(s): K63.5 - Polyp of colon (12) Stroke/cerebrovascular accident: QUALIFIERS: CVA mechanism: embolism Precerebral and cerebral artery: middle cerebral artery (13) Anemia: QUALIFIERS: Anemia type: unspecified type Qualified Code(s): D64.9 - Anemia, unspecified (14) Vertebral osteomyelitis, acute: (15) 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: (16) PFO (patent foramen ovale): (17) Hypertension: QUALIFIERS: Hypertension type: primary hypertension Qualified Code(s): I10 - Essential (primary) hypertension (18) Hyperuricemia: (19) Gout: QUALIFIERS: Gout site: multiple sites Gout etiology: other secondary cause Chronicity: chronic Presence of tophus: without tophus Qualified Code(s): M1A.49X0 - Other secondary chronic gout, multiple sites, without tophus (tophi) (20) GERD (gastroesophageal reflux disease): QUALIFIERS: Esophagitis presence: without esophagitis Qualified Code(s): K21.9 - Gastro-esophageal reflux disease without esophagitis (21) COPD (chronic obstructive pulmonary disease): QUALIFIERS: COPD type: unspecified COPD Qualified Code(s): J44.9 - Chronic obstructive pulmonary disease, unspecified (22) Chronic anticoagulation: (23) Elevated anti-tissue transglutaminase (tTG) IgA level: PLAN: Plan 1. Continue therapy 2. Add calorie restriction to his current heart healthy diet. 2000 erin daily. 3. Check H&H today 4. Weekly lab on Wednesday Charges/Coding Visit Charges Inpatient E&M: 84087 Subs Hosp L2
[2022-09-28 13:11] LABS: Hematocrit 26.7 % (40-54); Hemoglobin 7.8 g/dL (13.0-16.5)
[2022-09-28 13:21] VITALS: BMI 39.1
[2022-09-28 22:46] VITALS: BP 129/55; PULSE 83; RESP 16; TEMP 36.4; O2SAT 95
[2022-09-28] MEDS: Polyethylene Glycol 3350 17 GM PACKET PO (22:48)
[2022-09-28] MEDS: traZODone 100 MG Tablet PO (22:48)
[2022-09-28] MEDS: Atorvastatin Calcium 40 MG Tablet PO (22:48)
[2022-09-28] MEDS: Doxazosin 1 MG Tablet PO (22:48)
[2022-09-29 01:08] VITALS: BMI 39.1
[2022-09-29] MEDS: Baclofen 10 MG Tablet 5 MG PO ×3 (05:40→22:47)
[2022-09-29] MEDS: oxyCODONE 5 MG Tablet 10 MG PO ×3 (05:40→17:41)
[2022-09-29 07:44] VITALS: BP 131/58; PULSE 82; RESP 16; TEMP 36.9; O2SAT 96
[2022-09-29] MEDS: Senna/Docusate Sodium 1 Tablet 2 TABLET PO ×2 (09:42→22:44)
[2022-09-29] MEDS: Clopidogrel Bisulfate 75 MG Tablet PO (09:42)
[2022-09-29] MEDS: amLODIPine 10 MG Tablet PO (09:42)
[2022-09-29] MEDS: Celecoxib 100 MG Capsule PO (09:42)
[2022-09-29] MEDS: Fenofibrate 48 MG Tablet PO (09:42)
[2022-09-29] MEDS: Pantoprazole Sodium 40 MG Tablet PO (09:42)
[2022-09-29] MEDS: Potassium Chloride Oral Tablet 20 MEQ PO (09:42)
[2022-09-29] MEDS: Venlafaxine XR 150 MG Capsule PO (09:42)
[2022-09-29] MEDS: oxyCODONE CR 15 MG Tablet PO ×2 (09:43→22:45)
[2022-09-29] MEDS: Gabapentin 100 MG Capsule 200 MG PO ×3 (09:43→17:42)
[2022-09-29] MEDS: Losartan Potassium 100 MG Tablet PO (09:49)
[2022-09-29] MEDS: APIXABAN 5 MG TABLET PO ×2 (09:50→22:46)
[2022-09-29] MEDS: Nystatin Powder 15gm Bottle 1 APPLIC TOPICAL ×2 (09:51→22:48)
[2022-09-29] MEDS: Ascorbic Acid 500 MG Tablet 1000 MG PO (12:16)
[2022-09-29] MEDS: Ferrous Sulfate 325 MG Tablet PO (12:17)
--- NOTE | 2022-09-29 14:10 | PN_ITS ---
Subjective Subjective Afebrile VSS - BP is better controlled with the addition of the Cardura 1 mg at HS. Maintaining appropriate oxygen saturation on RA Oral intake is good. Fluid intake is excellent. Discussed with nursing - no problems that need addressed Reviewed the PT/OT/ST notes Medication list reviewed. Not complaining of pain and does not appear to be in any distress. Denies lightheadedness, dizziness, cephalgia, shortness of breath, chest pain, palpitations, nausea/vomiting/abdominal pain, dysuria and calf pain. Denies heartburn and tells me that he has no hematochezia. All lab from this morning was personally reviewed. Hemoglobin is stable at 7.8, which is actually up from 7.5 on 09/23/2022. Weekly labs ordered to be done on . Objective Data Objective Data Vital Signs: Vital Signs Temp Pulse Resp BP Pulse Ox O2 Del Method 98.4 F 82 16 131/58 H 96 Room Air 09/29/22 07:44 09/29/22 07:44 09/29/22 07:44 09/29/22 07:44 09/29/22 07:44 09/29/22 07:44 Oxygen Delivery Method Room Air Weight: 313 lb 3.2 oz Body Mass Index (BMI) 39.1 Intake & Output: Intake and Output for Last 24 Hours 09/27/22 09/28/22 09/29/22 23:59 23:59 23:59 Intake Total 2869 / 2869 3059 / 3059 1253 / 1253 Output Total 1175 / 1175 800 / 1400 2100 / 2100 Balance 1694 / 1694 2259 / 1659 -847 / -847 Medical Nutrition Assessment Dietitian: Malnutrition Criteria Met Start: 09/16/22 15:12 Freq: Status: Active Protocol: Document 09/16/22 15:12 LO (Rec: 09/16/22 15:12 LO [id number]) Nutrition Malnutrition Evidence of Malnutrition Exists Yes Malnutrition (moderate): Acute Illness/Injury Evidenced By Suboptimal Energy Intake ( Moderate),Weight Loss (Severe) Clinical Problem Acute Disease or Injury Related Malnutrition Etiology moderate related to suboptimal appetite Signs/Symptoms as evidenced by <75% PO intake of estimated energy needs for >7 days and 17lbs (5.2%) weight loss in 1 month Status Active Problem Recommendation Dietitian Recommendations/Changes Continue Cardiac diet to manage medical conditions. Will hold off on ONS at this time due to adequate PO intakes and reassess at follow -up. Lab / Micro Data 09/30/22 05:10 09/30/22 05:10 Micro: Microbiology 09/16/22 03:15 Urine, Clean Catch Urine Culture - Final Culture exhibits no growth. Physical Exam Const alert, oriented x3 and no apparent distress General Appearance: cooperative Orientation / Consciousness: Negative for confused Resp clear to auscultation bilaterally Auscultation: diminished lung sounds Cardio regular rate, regular rhythm and no gallops GI normal to inspection, nondistended, normoactive bowel sounds, soft to palpation and non-tender Extremity no calf tenderness General Extremity: Negative for edema Assessment & Plan Assessment/Plan (1) Tinea cruris: (2) Endocarditis: (3) Aortic valve regurgitation: QUALIFIERS: Cardiac valve disease etiology: nonrheumatic Qualified Code(s): I35.1 - Nonrheumatic aortic (valve) insufficiency (4) Stroke/cerebrovascular accident: QUALIFIERS: CVA mechanism: embolism Precerebral and cerebral artery: middle cerebral artery Laterality of affected vessel: right Qualified Code(s): I63.411 - Cerebral infarction due to embolism of right middle cerebral artery (5) PFO (patent foramen ovale): (6) 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 Continue therapy 2. Continue Unasyn and daptomycin with a stop date of 10/08/2022 3. Discharge on 10/09/2022. I discussed a sleep study with the sleep lab and michael colon are going to try and arrange it for the night of 10/09/2022 so that he can be discharged and go straight to the sleep lab. Charges/Coding Visit Charges Inpatient E&M: 95821 Subs Hosp L2
[2022-09-29 17:00] VITALS: BMI 39.1
[2022-09-29 19:51] VITALS: BP 116/53; PULSE 81; RESP 14; TEMP 36.6; O2SAT 93
[2022-09-29] MEDS: Acetaminophen 325 MG Tablet 650 MG PO (22:45)
[2022-09-29] MEDS: traZODone 100 MG Tablet PO (22:46)
[2022-09-29] MEDS: Doxazosin 1 MG Tablet PO (22:46)
[2022-09-29] MEDS: Atorvastatin Calcium 40 MG Tablet PO (22:47)
[2022-09-29] MEDS: Polyethylene Glycol 3350 17 GM PACKET PO (22:47)
[2022-09-30 05:00] VITALS: BMI 38.9
[2022-09-30] MEDS: Baclofen 10 MG Tablet 5 MG PO ×3 (05:03→21:16)
[2022-09-30] MEDS: oxyCODONE 5 MG Tablet 10 MG PO ×3 (05:03→17:50)
[2022-09-30 05:25] LABS: Absolute Lymphocyte Count 1.37 X10^3/uL (0.83-4.51); Absolute Neutrophil Count 4.1 X10^3/uL (2.0-7.7); Basophil# 0.04 X10^3/uL; Basophil% 0.6 % (0-1); Eosinophil# 0.31 X10^3/uL; Eosinophils% 4.8 % (0-5); Hemoglobin 8.2 g/dL (13.0-16.5); Lymphocyte # 1.37 X10^3/ul (0.83-4.51); Lymphocyte % 21.4 % (19-41); Mean Corp Hgb Conc 30.4 g/dL (32-36); Mean Corpuscular Hgb 25.9 pg (27.0-32.0); Mean Corpuscular Volume 85.2 fL (80-94); Monocyte# 0.59 X10^3/uL; Monocyte% 9.2 % (0-10); NRBC Flagged by Analyzer 0 % (0-5); Neutrophil # 4.08 X10^3/uL (2.7-7.7); Neutrophil % 63.8 % (47-70); Platelet Count 296 K/mm3 (150-450); RBC Distribution Width CV 18.6 % (11.6-14.6); RBC Distribution Width SD 58.1 fl (35.1-43.9); Red Blood Count 3.17 M/mm3 (4.6-6.2); White Blood Count 6.4 K/mm3 (4.4-11.0)
[2022-09-30 05:44] LABS: Erythrocyte Sedimentation Rate 51 mm/hr (0-20)
[2022-09-30 05:51] LABS: ALB/GLOB Ratio 0.5 RATIO (0.9-2.4); AST(SGOT) 12 U/L (15-37); Alanine Aminotransfer ALT/SGPT 13 U/L (16-61); Albumin, Serum 2.4 g/dL (3.2-5.0); Alkaline Phosphatase 105 U/L (45-117); Anion Gap 5 (5-15); BUN 10 mg/dL (7-18); BUN/Creat Ratio 7.5 RATIO (10-20); CPK Total, Creatine Kinase 35 U/L (39-308); Calcium,Total 9.1 mg/dL (8.5-10.1); Chloride 110 mmol/L (98-107); Creatinine, Serum 1.34 mg/dL (0.70-1.30); EST Glomerular Filtration Rate 58 mL/min (>60); Est Glom Filt Rate - Afr Amer 70 mL/min (>60); Estimated Creatinine Clearance 71.82 ml/min; Globulin 5.1 g/dL (2.2-4.2); Glucose 89 mg/dL (74-106); Potassium 3.9 mmol/L (3.5-5.1); Protein, Total 7.5 g/dL (6.4-8.2); Sodium Level 143 mmol/L (136-145)
[2022-09-30 08:30] VITALS: BP 126/67; PULSE 77; RESP 14; TEMP 36.8; O2SAT 97
[2022-09-30] MEDS: Clopidogrel Bisulfate 75 MG Tablet PO (09:52)
[2022-09-30] MEDS: amLODIPine 10 MG Tablet PO (09:52)
[2022-09-30] MEDS: Celecoxib 100 MG Capsule PO (09:52)
[2022-09-30] MEDS: Fenofibrate 48 MG Tablet PO (09:52)
[2022-09-30] MEDS: APIXABAN 5 MG TABLET PO ×2 (09:52→21:16)
[2022-09-30] MEDS: Pantoprazole Sodium 40 MG Tablet PO (09:52)
[2022-09-30] MEDS: Potassium Chloride Oral Tablet 20 MEQ PO (09:53)
[2022-09-30] MEDS: Gabapentin 100 MG Capsule 200 MG PO ×3 (09:53→17:50)
[2022-09-30] MEDS: Losartan Potassium 100 MG Tablet PO (09:53)
[2022-09-30] MEDS: Venlafaxine XR 150 MG Capsule PO (09:53)
[2022-09-30] MEDS: oxyCODONE CR 15 MG Tablet PO ×2 (09:53→21:26)
[2022-09-30] MEDS: Senna/Docusate Sodium 1 Tablet 2 TABLET PO ×2 (09:53→21:17)
[2022-09-30] MEDS: Nystatin Powder 15gm Bottle 1 APPLIC TOPICAL ×2 (09:59→21:28)
[2022-09-30] MEDS: Ferrous Sulfate 325 MG Tablet PO (12:02)
[2022-09-30] MEDS: Ascorbic Acid 500 MG Tablet 1000 MG PO (12:02)
--- NOTE | 2022-09-30 12:25 | PCM.PROGNOTE ---
Subjective Subjective Afebrile VSS-blood pressure is now well controlled. Heart rate is within normal limits. Maintaining appropriate oxygen saturation on RA Oral intake is good Discussed with nursing - no problems that need addressed Reviewed the PT/OT/ST notes Medication list reviewed. Al is c/o itching and a rash in the Left groin. He denies shortness of breath at rest, dyspnea on exertion, orthopnea, paroxysmal nocturnal dyspnea, swelling of his legs, chest pain, palpitations, lightheadedness, dysuria and calf pain. He does not notice that he fatigues easily but, I suspect with the severe aortic regurgitation he would be if he was back at work or out in the heat of the day. All lab today was personally reviewed. White blood cell count is normal at 6.4 and the hemoglobin is up to 8.2. Platelets are within normal limits and the differential is unremarkable. ESR is 51. Creatinine is up to 134 and was 1.26 at admission on 09/16/2022. The BUN is 10. LFTs are unremarkable. CRP is 51.1. Objective Data Objective Data Vital Signs: Vital Signs Temp Pulse Resp BP Pulse Ox O2 Del Method 98.3 F 77 14 126/67 H 97 Room Air 09/30/22 08:30 09/30/22 08:30 09/30/22 08:30 09/30/22 08:30 09/30/22 08:30 09/30/22 08:30 Oxygen Delivery Method Room Air Weight: 311 lb 1.156 oz Body Mass Index (BMI) 38.9 Intake & Output: Intake and Output for Last 24 Hours 09/28/22 09/29/22 09/30/22 23:59 23:59 23:59 Intake Total 3059 / 3059 1956 / 1956 921 / 921 Output Total 800 / 1400 2300 / 2300 725 / 725 Balance 2259 / 1659 -343 / -343 196 / 196 Medical Nutrition Assessment Dietitian: Malnutrition Criteria Met Start: 09/16/22 15:12 Freq: Status: Active Protocol: Document 09/16/22 15:12 LO (Rec: 09/16/22 15:12 LO [id number]) Nutrition Malnutrition Evidence of Malnutrition Exists Yes Malnutrition (moderate): Acute Illness/Injury Evidenced By Suboptimal Energy Intake ( Moderate),Weight Loss (Severe) Clinical Problem Acute Disease or Injury Related Malnutrition Etiology moderate related to suboptimal appetite Signs/Symptoms as evidenced by <75% PO intake of estimated energy needs for >7 days and 17lbs (5.2%) weight loss in 1 month Status Active Problem Recommendation Dietitian Recommendations/Changes Continue Cardiac diet to manage medical conditions. Will hold off on ONS at this time due to adequate PO intakes and reassess at follow -up. Lab / Micro Data 09/30/22 05:10 09/30/22 05:10 Labs: Laboratory Results - last 24 hr 09/30/22 05:10: WBC 6.4, RBC 3.17 L, Hgb 8.2 L, Hct 27.0 L, MCV 85.2, MCH 25.9 L, MCHC 30.4 L, RDW Std Deviation 58.1 H, RDW Coeff of Ghassan 18.6 H, Plt Count 296, MPV 11.0, Immature Gran % (Auto) 0.200, Neut % (Auto) 63.8, Lymph % (Auto) 21.4, [place] % (Auto) 9.2, Eos % (Auto) 4.8, Baso % (Auto) 0.6, Absolute Neuts (auto) 4.1, Absolute Lymphs (auto) 1.37, Nucleated RBC % 0, ESR 51 H, Sodium 143, Potassium 3.9, Chloride 110 H, Carbon Dioxide 28.0, Anion Gap 5, BUN 10, Creatinine 1.34 H, Estim Creat Clear Calc 71.82, Est GFR (MDRD) Af Amer 70, Est GFR (MDRD) Non-Af 58 L, BUN/Creatinine Ratio 7.5 L, Glucose 89, Calcium 9.1, Total Bilirubin 0.30, AST 12 L, ALT 13 L, Alkaline Phosphatase 105, Total Creatine Kinase 35 L, C-React Prot Ext Range 51.10 H, Total Protein 7.5, Albumin 2.4 L, Globulin 5.1 H, Albumin/Globulin Ratio 0.5 L Micro: Microbiology 09/16/22 03:15 Urine, Clean Catch Urine Culture - Final Culture exhibits no growth. Physical Exam Const alert and no apparent distress General Appearance: cooperative HEENT moist oral mucous membranes Resp normal respiratory effort, no use of accessory muscles and clear to auscultation bilaterally Effort and Inspection: Negative for tachypneic or labored Cardio regular rate, regular rhythm and no gallops Cardio Narrative: no ectopy and no change in the aortic MM. GI normal to inspection, nondistended, normoactive bowel sounds, non-tender and non-distended GI Narrative: no guarding with palpation Extremity Negative for no calf tenderness General Extremity: Negative for edema Skin Skin Narrative: He has a moist red rash in the Left groin. It is pruritic and it looks fungal. No openings in the skin except for where he is scratching. He has been getting Nystatin powder BID.....ordered but, I do not see any powder on him today. 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 Continue therapy 2. Continue antibiotics with a stop date of 10/08/22 3. Diflucan 100 mg p.o. daily x3 days. Continue nystatin powder twice daily 4. 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 Will follow up with Dr. Christensen for endocarditis and severe AR and will need a valve replacement.......to be done at [facility]. Can close the PFO at the same time if possible. 6. Continue anticoagulation with Eliquis 7. Will follow up at [facility] for chronic back pain and I would like their opinion on the changes in L3 and L4. 8. follow up with Dr. Zane Morgan for ID. Charges/Coding Visit Charges Inpatient E&M: 71163 Subs Hosp L2
[2022-09-30] MEDS: Fluconazole 100 MG Tablet PO (13:04)
[2022-09-30 14:31] VITALS: BMI 38.9
[2022-09-30 18:51] VITALS: BP 118/49; PULSE 71; RESP 18; TEMP 36.6; O2SAT 95
[2022-09-30] MEDS: traZODone 100 MG Tablet PO (21:15)
[2022-09-30] MEDS: Doxazosin 1 MG Tablet PO (21:15)
[2022-09-30] MEDS: Atorvastatin Calcium 40 MG Tablet PO (21:15)
[2022-09-30] MEDS: Polyethylene Glycol 3350 17 GM PACKET PO (21:16)
[2022-09-30 23:53] VITALS: BMI 38.9
[2022-10-01] MEDS: Baclofen 10 MG Tablet 5 MG PO ×3 (05:15→19:53)
[2022-10-01] MEDS: oxyCODONE 5 MG Tablet 10 MG PO ×3 (05:16→18:26)
[2022-10-01] MEDS: 0.9% Saline Lock 10 ML Syringe IV (05:25)
[2022-10-01 07:59] VITALS: BP 137/68; PULSE 87; RESP 19; TEMP 36.6; O2SAT 96
[2022-10-01] MEDS: Potassium Chloride Oral Tablet 20 MEQ PO (07:59)
[2022-10-01] MEDS: Pantoprazole Sodium 40 MG Tablet PO (07:59)
[2022-10-01] MEDS: amLODIPine 10 MG Tablet PO (07:59)
[2022-10-01] MEDS: Clopidogrel Bisulfate 75 MG Tablet PO (07:59)
[2022-10-01] MEDS: Venlafaxine XR 150 MG Capsule PO (07:59)
[2022-10-01] MEDS: Losartan Potassium 100 MG Tablet PO (08:00)
[2022-10-01] MEDS: Fluconazole 100 MG Tablet PO (08:00)
[2022-10-01] MEDS: Fenofibrate 48 MG Tablet PO (08:00)
[2022-10-01] MEDS: Celecoxib 100 MG Capsule PO (08:02)
[2022-10-01] MEDS: APIXABAN 5 MG TABLET PO ×2 (08:03→19:53)
[2022-10-01] MEDS: Gabapentin 100 MG Capsule 200 MG PO ×3 (08:07→17:12)
[2022-10-01] MEDS: Nystatin Powder 15gm Bottle 1 APPLIC TOPICAL ×2 (08:08→21:20)
[2022-10-01] MEDS: oxyCODONE CR 15 MG Tablet PO ×2 (09:20→21:20)
[2022-10-01 11:21] VITALS: BMI 38.9
[2022-10-01] MEDS: Ferrous Sulfate 325 MG Tablet PO (12:25)
[2022-10-01] MEDS: Ascorbic Acid 500 MG Tablet 1000 MG PO (12:26)
--- NOTE | 2022-10-01 13:33 | CASEMGMT ---
Social Work IDT met with patient and for Team meeting. Discussed patient's progress in PT/OT/ST/SN. Educated to commerical insurance approving with [employer] 10/08, DC 10/09, as IV ATB will be done. Recommending outpatient PT/ST. [facility] is pt's preference. SW to coordinate. No DME needs. Plan: DC home with 10/09, [facility] outpatient PT/ST Samaria Ellington, [employer]
[2022-10-01 19:34] VITALS: BP 116/72; PULSE 67; RESP 17; TEMP 36.6; O2SAT 97
[2022-10-01] MEDS: Doxazosin 1 MG Tablet PO (19:52)
[2022-10-01] MEDS: traZODone 100 MG Tablet PO (19:53)
[2022-10-01] MEDS: Senna/Docusate Sodium 1 Tablet 2 TABLET PO (19:54)
[2022-10-01] MEDS: Polyethylene Glycol 3350 17 GM PACKET PO (19:54)
[2022-10-01] MEDS: Atorvastatin Calcium 40 MG Tablet PO (19:54)
[2022-10-02 00:56] VITALS: BMI 38.9
[2022-10-02 05:00] VITALS: BMI 38.4
[2022-10-02] MEDS: oxyCODONE 5 MG Tablet 10 MG PO ×3 (05:02→17:42)
[2022-10-02] MEDS: Baclofen 10 MG Tablet 5 MG PO ×3 (05:02→19:50)
[2022-10-02 08:00] VITALS: BP 123/47; PULSE 78; RESP 16; TEMP 36.9; O2SAT 93
[2022-10-02 09:00] VITALS: BP 105/63; PULSE 80
[2022-10-02] MEDS: Potassium Chloride Oral Tablet 20 MEQ PO (09:00)
[2022-10-02] MEDS: Fenofibrate 48 MG Tablet PO (09:00)
[2022-10-02] MEDS: Gabapentin 100 MG Capsule 200 MG PO ×3 (09:00→17:38)
[2022-10-02] MEDS: Clopidogrel Bisulfate 75 MG Tablet PO (09:17)
[2022-10-02] MEDS: Pantoprazole Sodium 40 MG Tablet PO (09:17)
[2022-10-02] MEDS: Venlafaxine XR 150 MG Capsule PO (09:17)
[2022-10-02] MEDS: Celecoxib 100 MG Capsule PO (09:18)
[2022-10-02] MEDS: Fluconazole 100 MG Tablet PO (09:18)
[2022-10-02] MEDS: APIXABAN 5 MG TABLET PO ×2 (09:19→19:49)
[2022-10-02] MEDS: Senna/Docusate Sodium 1 Tablet 2 TABLET PO ×2 (09:19→19:51)
[2022-10-02] MEDS: amLODIPine 10 MG Tablet PO (09:19)
[2022-10-02] MEDS: Losartan Potassium 100 MG Tablet PO (09:19)
[2022-10-02] MEDS: 0.9 % NaCl (Sterile) Posiflush 10 mL IV (09:26)
[2022-10-02] MEDS: Nystatin Powder 15gm Bottle 1 APPLIC TOPICAL ×2 (09:27→19:52)
[2022-10-02] MEDS: oxyCODONE CR 15 MG Tablet PO ×2 (09:30→21:33)
[2022-10-02] MEDS: Loratadine 10 MG Tablet PO (12:00)
[2022-10-02] MEDS: Ascorbic Acid 500 MG Tablet 1000 MG PO (13:00)
[2022-10-02] MEDS: Ferrous Sulfate 325 MG Tablet PO (13:00)
[2022-10-02 17:00] VITALS: BMI 38.4
[2022-10-02 19:30] VITALS: BP 114/52; PULSE 83; RESP 15; TEMP 36.8; O2SAT 93
[2022-10-02] MEDS: Doxazosin 1 MG Tablet PO (19:48)
[2022-10-02] MEDS: traZODone 100 MG Tablet PO (19:48)
[2022-10-02] MEDS: Atorvastatin Calcium 40 MG Tablet PO (19:51)
[2022-10-02] MEDS: Polyethylene Glycol 3350 17 GM PACKET PO (19:51)
[2022-10-02 21:47] VITALS: O2SAT 93
[2022-10-03 01:21] VITALS: BMI 38.4
[2022-10-03] MEDS: Baclofen 10 MG Tablet 5 MG PO ×3 (05:22→21:03)
[2022-10-03] MEDS: oxyCODONE 5 MG Tablet 10 MG PO ×3 (05:22→17:50)
[2022-10-03] MEDS: Potassium Chloride Oral Tablet 20 MEQ PO (08:12)
[2022-10-03] MEDS: Fenofibrate 48 MG Tablet PO (08:12)
[2022-10-03] MEDS: Gabapentin 100 MG Capsule 200 MG PO ×3 (08:21→16:47)
[2022-10-03 08:56] VITALS: BP 119/55; PULSE 78; RESP 18; TEMP 36.5; O2SAT 93
[2022-10-03] MEDS: oxyCODONE CR 15 MG Tablet PO ×2 (10:46→21:03)
[2022-10-03] MEDS: amLODIPine 10 MG Tablet PO (10:46)
[2022-10-03] MEDS: Pantoprazole Sodium 40 MG Tablet PO (10:46)
[2022-10-03] MEDS: APIXABAN 5 MG TABLET PO ×2 (10:46→21:02)
[2022-10-03] MEDS: Venlafaxine XR 150 MG Capsule PO (10:46)
[2022-10-03] MEDS: Losartan Potassium 100 MG Tablet PO (10:46)
[2022-10-03] MEDS: Loratadine 10 MG Tablet PO (10:46)
[2022-10-03] MEDS: Celecoxib 100 MG Capsule PO (10:46)
[2022-10-03] MEDS: Fluconazole 100 MG Tablet PO (10:46)
[2022-10-03] MEDS: Clopidogrel Bisulfate 75 MG Tablet PO (10:46)
[2022-10-03] MEDS: Senna/Docusate Sodium 1 Tablet 2 TABLET PO ×2 (10:47→21:04)
[2022-10-03] MEDS: Nystatin Powder 15gm Bottle 1 APPLIC TOPICAL ×2 (10:50→23:42)
[2022-10-03] MEDS: Ferrous Sulfate 325 MG Tablet PO (12:29)
[2022-10-03] MEDS: Ascorbic Acid 500 MG Tablet 1000 MG PO (12:30)
[2022-10-03 13:57] VITALS: BMI 38.4
[2022-10-03 19:25] VITALS: BP 119/50; PULSE 72; RESP 18; TEMP 36.7; O2SAT 97
[2022-10-03] MEDS: traZODone 100 MG Tablet PO (21:02)
[2022-10-03] MEDS: Doxazosin 1 MG Tablet PO (21:02)
[2022-10-03] MEDS: Atorvastatin Calcium 40 MG Tablet PO (21:02)
[2022-10-03] MEDS: Acetaminophen 325 MG Tablet 650 MG PO (21:03)
[2022-10-03] MEDS: Polyethylene Glycol 3350 17 GM PACKET PO (21:03)
[2022-10-04] MEDS: Baclofen 10 MG Tablet 5 MG PO ×3 (06:25→20:44)
[2022-10-04] MEDS: oxyCODONE 5 MG Tablet 10 MG PO ×3 (06:25→17:48)
[2022-10-04 07:59] VITALS: BP 94/55; PULSE 80; RESP 15; TEMP 36.8; O2SAT 97
[2022-10-04] MEDS: Potassium Chloride Oral Tablet 20 MEQ PO (09:34)
[2022-10-04] MEDS: Loratadine 10 MG Tablet PO (09:34)
[2022-10-04] MEDS: Fenofibrate 48 MG Tablet PO (09:34)
[2022-10-04] MEDS: Losartan Potassium 100 MG Tablet PO (09:34)
[2022-10-04] MEDS: Celecoxib 100 MG Capsule PO (09:34)
[2022-10-04] MEDS: amLODIPine 10 MG Tablet PO (09:35)
[2022-10-04] MEDS: APIXABAN 5 MG TABLET PO ×2 (09:35→20:44)
[2022-10-04] MEDS: Nystatin Powder 15gm Bottle 1 APPLIC TOPICAL (09:35)
[2022-10-04] MEDS: Clopidogrel Bisulfate 75 MG Tablet PO (09:35)
[2022-10-04] MEDS: Pantoprazole Sodium 40 MG Tablet PO (09:35)
[2022-10-04] MEDS: Senna/Docusate Sodium 1 Tablet 2 TABLET PO ×2 (09:35→20:46)
[2022-10-04] MEDS: Venlafaxine XR 150 MG Capsule PO (09:35)
[2022-10-04] MEDS: oxyCODONE CR 15 MG Tablet PO ×2 (09:43→20:46)
[2022-10-04] MEDS: Gabapentin 100 MG Capsule 200 MG PO ×3 (09:43→17:18)
[2022-10-04] MEDS: Ascorbic Acid 500 MG Tablet 1000 MG PO (12:09)
[2022-10-04] MEDS: Ferrous Sulfate 325 MG Tablet PO (12:09)
[2022-10-04 17:00] VITALS: BMI 38.4
[2022-10-04 19:04] VITALS: BP 103/50; PULSE 80; RESP 19; TEMP 36.3; O2SAT 98
[2022-10-04] MEDS: Polyethylene Glycol 3350 17 GM PACKET PO (20:43)
[2022-10-04] MEDS: Doxazosin 1 MG Tablet PO (20:43)
[2022-10-04] MEDS: traZODone 100 MG Tablet PO (20:43)
[2022-10-04] MEDS: Atorvastatin Calcium 40 MG Tablet PO (20:45)
[2022-10-05 05:00] VITALS: BMI 38.2
[2022-10-05] MEDS: Baclofen 10 MG Tablet 5 MG PO ×3 (05:05→21:44)
[2022-10-05] MEDS: oxyCODONE 5 MG Tablet 10 MG PO ×3 (05:05→18:09)
[2022-10-05 07:25] VITALS: BP 123/84; PULSE 85; RESP 16; TEMP 37.3; O2SAT 94
[2022-10-05] MEDS: Fenofibrate 48 MG Tablet PO (08:08)
[2022-10-05] MEDS: Venlafaxine XR 150 MG Capsule PO (08:09)
[2022-10-05] MEDS: amLODIPine 10 MG Tablet PO (08:09)
[2022-10-05] MEDS: Celecoxib 100 MG Capsule PO (08:09)
[2022-10-05] MEDS: Losartan Potassium 100 MG Tablet PO (08:09)
[2022-10-05] MEDS: Clopidogrel Bisulfate 75 MG Tablet PO (08:09)
[2022-10-05] MEDS: Pantoprazole Sodium 40 MG Tablet PO (08:09)
[2022-10-05] MEDS: Potassium Chloride Oral Tablet 20 MEQ PO (08:10)
[2022-10-05] MEDS: Nystatin Powder 15gm Bottle 1 APPLIC TOPICAL ×2 (08:10→21:53)
[2022-10-05] MEDS: APIXABAN 5 MG TABLET PO ×2 (08:11→21:44)
[2022-10-05] MEDS: Gabapentin 100 MG Capsule 200 MG PO ×3 (08:17→18:09)
[2022-10-05] MEDS: oxyCODONE CR 15 MG Tablet PO ×2 (10:06→21:51)
--- NOTE | 2022-10-05 10:35 | PCM.PROGNOTE ---
Subjective Subjective Afebrile VSS Maintaining appropriate oxygen saturation on RA Oral intake is good Discussed with nursing - no problems that need addressed Reviewed the PT/OT/ST notes Medication list reviewed. BRANDIN tells me that he is happy with the current pain control. He is sleeping well. He falls asleep very easily during the day, sometimes when I am talking to him and his . He snores loudly and does not feel rested in the AM. He falls asleep while riding in the car and when watching TV or reading a book. He has HTN. BMI is > 30 and the Neck circumference is > 40 cm. He is at high risk for sleep apnea and he had an abnormal overnight trending pulse ox. BRANDIN denies diarrhea, mouth pain, painful swallowing. No CP, SOB, palpitations. The tinea cruris has resolved. Objective Data Objective Data Vital Signs: Vital Signs Temp Pulse Resp BP Pulse Ox O2 Del Method 99.2 F H 85 16 123/84 H 94 Room Air 10/05/22 07:25 10/05/22 07:25 10/05/22 07:25 10/05/22 07:25 10/05/22 07:25 10/05/22 07:25 Oxygen Delivery Method Room Air Weight: 306 lb 7.08 oz Body Mass Index (BMI) 38.2 Intake & Output: Intake and Output for Last 24 Hours 10/03/22 10/04/22 10/05/22 23:59 23:59 23:59 Intake Total 3913.0 / 3913.0 2465.5 / 2465.5 832 / 832 Output Total 3450 / 3450 1050 / 1050 600 / 600 Balance 463.0 / 463.0 1415.5 / 1415.5 232 / 232 Medical Nutrition Assessment Dietitian: Malnutrition Criteria Met Start: 09/16/22 15:12 Freq: Status: Active Protocol: Document 09/16/22 15:12 [email or web address] (Rec: 09/16/22 15:12 [id number]) Nutrition Malnutrition Evidence of Malnutrition Exists Yes Malnutrition (moderate): Acute Illness/Injury Evidenced By Suboptimal Energy Intake ( Moderate),Weight Loss (Severe) Clinical Problem Acute Disease or Injury Related Malnutrition Etiology moderate related to suboptimal appetite Signs/Symptoms as evidenced by <75% PO intake of estimated energy needs for >7 days and 17lbs (5.2%) weight loss in 1 month Status Active Problem Recommendation Dietitian Recommendations/Changes Continue Cardiac diet to manage medical conditions. Will hold off on ONS at this time due to adequate PO intakes and reassess at follow -up. Lab / Micro Data 09/30/22 05:10 09/30/22 05:10 Micro: Microbiology 09/16/22 03:15 Urine, Clean Catch Urine Culture - Final Culture exhibits no growth. Physical Exam Const alert and oriented x3 General Appearance: cooperative HEENT HEENT Narrative: Dry MM are likely related to the narcotics. Mouth: dry mucous membranes Resp normal respiratory effort, no use of accessory muscles and clear to auscultation bilaterally Effort and Inspection: Negative for tachypneic or labored Auscultation: diminished lung sounds Cardio regular rate, regular rhythm and no gallops GI normal to inspection, nondistended, normoactive bowel sounds, non-tender and non-distended GI Narrative: no guarding with palpation Extremity Negative for no calf tenderness General Extremity: Negative for edema Skin General Skin Exam: no breakdown Rashes: no rashes Psych affect normal Assessment & Plan Assessment/Plan (1) Tinea cruris: (2) Endocarditis: QUALIFIERS: Endocarditis type: infective Infective endocarditis organism: bacterial Chronicity: acute Qualified Code(s): I33.0 - Acute and subacute infective endocarditis (3) Aortic valve regurgitation: QUALIFIERS: Cardiac valve disease etiology: nonrheumatic Qualified Code(s): I35.1 - Nonrheumatic aortic (valve) insufficiency (4) Stroke/cerebrovascular accident: QUALIFIERS: CVA mechanism: embolism Precerebral and cerebral artery: middle cerebral artery Laterality of affected vessel: right Qualified Code(s): I63.411 - Cerebral infarction due to embolism of right middle cerebral artery (5) PFO (patent foramen ovale): (6) 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 Continue therapy 2. Antibiotics will conclude after the last dose on 10/08/2022 and he will be discharged on 10/09/2022 to the sleep lab and then go home the following morning. 3. Will need follow up with Dr. Christensen, oncology, pulmonary, ID and neurology. After the PFO is closed and the AV is replaced he can follow up with Dr. Donohue to have the IVC filter removed. 4. weekly lab on Wednesday. Charges/Coding Visit Charges Inpatient E&M: 00117 Subs Hosp L2
[2022-10-05] MEDS: Ascorbic Acid 500 MG Tablet 1000 MG PO (12:05)
[2022-10-05] MEDS: Ferrous Sulfate 325 MG Tablet PO (12:05)
[2022-10-05 16:18] VITALS: BMI 38.2
[2022-10-05 20:00] VITALS: BP 132/50; PULSE 78; RESP 16; TEMP 36.9; O2SAT 98
[2022-10-05] MEDS: Polyethylene Glycol 3350 17 GM PACKET PO (21:44)
[2022-10-05] MEDS: traZODone 100 MG Tablet PO (21:44)
[2022-10-05] MEDS: Doxazosin 1 MG Tablet PO (21:44)
[2022-10-05] MEDS: Atorvastatin Calcium 40 MG Tablet PO (21:44)
[2022-10-05 21:45] VITALS: BMI 38.2
[2022-10-05] MEDS: Senna/Docusate Sodium 1 Tablet 2 TABLET PO (21:45)
[2022-10-06] MEDS: Baclofen 10 MG Tablet 5 MG PO ×3 (05:34→19:32)
[2022-10-06] MEDS: oxyCODONE 5 MG Tablet 10 MG PO ×3 (05:34→17:42)
[2022-10-06 07:52] VITALS: BP 126/53; PULSE 85; RESP 14; TEMP 36.8; O2SAT 91
[2022-10-06] MEDS: Nystatin Powder 15gm Bottle 1 APPLIC TOPICAL ×2 (09:34→19:35)
[2022-10-06] MEDS: Potassium Chloride Oral Tablet 20 MEQ PO (09:39)
[2022-10-06] MEDS: APIXABAN 5 MG TABLET PO ×2 (09:39→19:32)
[2022-10-06] MEDS: Senna/Docusate Sodium 1 Tablet 2 TABLET PO ×2 (09:39→19:33)
[2022-10-06] MEDS: Venlafaxine XR 150 MG Capsule PO (09:39)
[2022-10-06] MEDS: amLODIPine 10 MG Tablet PO (09:39)
[2022-10-06] MEDS: Clopidogrel Bisulfate 75 MG Tablet PO (09:39)
[2022-10-06] MEDS: Celecoxib 100 MG Capsule PO (09:39)
[2022-10-06] MEDS: Fenofibrate 48 MG Tablet PO (09:39)
[2022-10-06] MEDS: Losartan Potassium 100 MG Tablet PO (09:39)
[2022-10-06] MEDS: Gabapentin 100 MG Capsule 200 MG PO ×3 (09:39→17:42)
[2022-10-06] MEDS: Pantoprazole Sodium 40 MG Tablet PO (09:39)
[2022-10-06] MEDS: oxyCODONE CR 15 MG Tablet PO ×2 (09:44→21:39)
--- NOTE | 2022-10-06 11:33 | PN_ITS ---
Subjective Subjective Afebrile VSS Maintaining appropriate oxygen saturation on RA Oral intake is good Weight has decreased from 333 at admission to 306. Goal is to get his wt down to 200 Discussed with nursing - no problems that need addressed Reviewed the PT/OT/ST notes Medication list reviewed. Al denies diarrhea, abdominal pain, nausea, dysuria, mouth pain or painful swallowing, lightheadedness and calf pain. Objective Data Objective Data Vital Signs: Vital Signs Temp Pulse Resp BP Pulse Ox O2 Del Method 98.3 F 85 14 126/53 H 91 Room Air 10/06/22 07:52 10/06/22 07:52 10/06/22 07:52 10/06/22 07:52 10/06/22 07:52 10/06/22 09:57 Oxygen Delivery Method Room Air Weight: 306 lb 7.08 oz Body Mass Index (BMI) 38.2 Intake & Output: Intake and Output for Last 24 Hours 10/04/22 10/05/22 10/06/22 23:59 23:59 23:59 Intake Total 2465.5 / 2465.5 1885 / 1885 1343 / 1343 Output Total 1050 / 1050 1050 / 1050 1000 / 1000 Balance 1415.5 / 1415.5 835 / 835 343 / 343 Medical Nutrition Assessment Dietitian: Malnutrition Criteria Met Start: 09/16/22 15:12 Freq: Status: Active Protocol: Document 09/16/22 15:12 LO (Rec: 09/16/22 15:12 LO [id number]) Nutrition Malnutrition Evidence of Malnutrition Exists Yes Malnutrition (moderate): Acute Illness/Injury Evidenced By Suboptimal Energy Intake ( Moderate),Weight Loss (Severe) Clinical Problem Acute Disease or Injury Related Malnutrition Etiology moderate related to suboptimal appetite Signs/Symptoms as evidenced by <75% PO intake of estimated energy needs for >7 days and 17lbs (5.2%) weight loss in 1 month Status Active Problem Recommendation Dietitian Recommendations/Changes Continue Cardiac diet to manage medical conditions. Will hold off on ONS at this time due to adequate PO intakes and reassess at follow -up. Lab / Micro Data 10/07/22 05:25 10/07/22 05:25 Micro: Microbiology 09/16/22 03:15 Urine, Clean Catch Urine Culture - Final Culture exhibits no growth. Physical Exam Const alert, oriented x3 and no apparent distress General Appearance: cooperative Resp clear to auscultation bilaterally Auscultation: diminished lung sounds Cardio regular rate, regular rhythm and no gallops GI normal to inspection, nondistended, normoactive bowel sounds, soft to palpation and non-tender Extremity no calf tenderness General Extremity: Negative for edema Skin General Skin Exam: no breakdown Rashes: no rashes Wounds: Negative for wounds noted Assessment & Plan Assessment/Plan (1) Physical debility: (2) Stroke/cerebrovascular accident: QUALIFIERS: CVA mechanism: embolism Precerebral and cerebral artery: middle cerebral artery Laterality of affected vessel: right Qualified Code(s): I63.411 - Cerebral infarction due to embolism of right middle cerebral artery (3) PFO (patent foramen ovale): (4) SAH (subarachnoid hemorrhage): (5) Aortic valve endocarditis: (6) Aortic valve regurgitation: QUALIFIERS: Cardiac valve disease etiology: nonrheumatic Qualified Code(s): I35.1 - Nonrheumatic aortic (valve) insufficiency PLAN: Severe. He is going to follow up with Dr. Christensen who will likely refer to [facility] for AV replacement and closure of the PFO. (7) DVT of lower limb, acute: QUALIFIERS: Affected thrombotic vein of extremity: unspecified lower extremity distal vein Laterality: right Qualified Code(s): I82.4Z1 - Acute embolism and thrombosis of unspecified deep veins of right distal lower extremity PLAN: Gastrocnemius V with extension to the soleus. Could not be anticoagulated at the time due to SAH. Following replacement of the AV and closure of the PFO and is back on anticoagulation The IVC filter can be removed by Dr. Franc Donohue. 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 He has never had a + blood culture. ECHO clearly showed vegetation on the AV which I suspect is related to poor dentition. (10) Septic shock: PLAN: This happened during his initial admission to acute rehab and he had to be transferred to [facility] to have a bx of the new heterogenous changes in L3 and L4 which were presumed to be due to osteomyelitis. (11) HCAP (healthcare-associated pneumonia): (12) Acute renal failure: QUALIFIERS: Acute renal failure type: unspecified Qualified Code(s): N17.9 - Acute kidney failure, unspecified (13) ARF (acute respiratory failure): QUALIFIERS: Respiratory failure complication: hypoxia and hypercapnia Qualified Code(s): J96.01 - Acute respiratory failure with hypoxia; J96.02 - Acute respiratory failure with hypercapnia (14) Anemia: QUALIFIERS: Anemia type: unspecified type Qualified Code(s): D64.9 - Anemia, unspecified PLAN: Anemia chronic despite IV iron supplementation, possibly due to chronic infection suppressing BM. (15) Internal and external bleeding hemorrhoids: (16) Iron deficiency: (17) Heme positive stool: (18) Chronic lower back pain: QUALIFIERS: Back pain laterality: bilateral Sciatica presence: without sciatica Qualified Code(s): M54.50 - Low back pain, unspecified; G89.29 - Other chronic pain (19) Elevated anti-tissue transglutaminase (tTG) IgA level: (20) Chronic anticoagulation: (21) Tinea cruris: (22) GERD (gastroesophageal reflux disease): QUALIFIERS: Esophagitis presence: without esophagitis Qualified Code(s): K21.9 - Gastro-esophageal reflux disease without esophagitis (23) Gout: QUALIFIERS: Gout site: multiple sites Gout etiology: other secondary cause Chronicity: chronic Presence of tophus: without tophus Qualified Code(s): M1A.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 Continue therapy 2. Blood pressure is now well controlled on the current medication regimen. We will continue at discharge. 3. Weekly lab ordered for tomorrow 4. Has lost 27 lbs since admission to rehab in July. IBW is 186 lbs but will be very happy if he can get down to < 220. It would improve his back pain and mobility. It would also help with blood pressure. Charges/Coding Visit Charges Inpatient E&M: 98485 Subs Hosp L2
[2022-10-06] MEDS: Ascorbic Acid 500 MG Tablet 1000 MG PO (11:59)
[2022-10-06] MEDS: Ferrous Sulfate 325 MG Tablet PO (11:59)
[2022-10-06 16:26] VITALS: BMI 38.2
[2022-10-06 19:21] VITALS: BP 112/73; PULSE 70; RESP 16; TEMP 36.8; O2SAT 95
[2022-10-06] MEDS: traZODone 100 MG Tablet PO (19:31)
[2022-10-06] MEDS: Doxazosin 1 MG Tablet PO (19:32)
[2022-10-06] MEDS: Polyethylene Glycol 3350 17 GM PACKET PO (19:33)
[2022-10-06] MEDS: Atorvastatin Calcium 40 MG Tablet PO (19:33)
[2022-10-06 20:28] VITALS: O2SAT 94
[2022-10-07 00:56] VITALS: BMI 38.2
[2022-10-07 05:05] VITALS: BMI 38.3
[2022-10-07] MEDS: oxyCODONE 5 MG Tablet 10 MG PO ×3 (05:06→17:35)
[2022-10-07] MEDS: Baclofen 10 MG Tablet 5 MG PO ×3 (05:06→21:43)
[2022-10-07 05:39] LABS: Absolute Lymphocyte Count 1.43 X10^3/uL (0.83-4.51); Absolute Neutrophil Count 5.2 X10^3/uL (2.0-7.7); Basophil# 0.03 X10^3/uL; Basophil% 0.4 % (0-1); Eosinophil# 0.31 X10^3/uL; Hematocrit 27.6 % (40-54); Lymphocyte # 1.43 X10^3/ul (0.83-4.51); Lymphocyte % 18.6 % (19-41); Mean Corpuscular Hgb 25.2 pg (27.0-32.0); Mean Corpuscular Volume 86.8 fL (80-94); Mean Platelet Vol. 11.6 fl (6.2-12.0); Monocyte% 9.1 % (0-10); NRBC Flagged by Analyzer 0 % (0-5); Neutrophil # 5.18 X10^3/uL (2.7-7.7); Neutrophil % 67.3 % (47-70); Platelet Count 251 K/mm3 (150-450); RBC Distribution Width CV 18.6 % (11.6-14.6); RBC Distribution Width SD 59.7 fl (35.1-43.9); Red Blood Count 3.18 M/mm3 (4.6-6.2); White Blood Count 7.7 K/mm3 (4.4-11.0)
[2022-10-07 06:06] LABS: ALB/GLOB Ratio 0.6 RATIO (0.9-2.4); AST(SGOT) 13 U/L (15-37); Alanine Aminotransfer ALT/SGPT 12 U/L (16-61); Albumin, Serum 2.7 g/dL (3.2-5.0); Alkaline Phosphatase 104 U/L (45-117); Anion Gap 3 (5-15); BUN 12 mg/dL (7-18); BUN/Creat Ratio 9.2 RATIO (10-20); CPK Total, Creatine Kinase 38 U/L (39-308); Chloride 110 mmol/L (98-107); Creatinine, Serum 1.31 mg/dL (0.70-1.30); EST Glomerular Filtration Rate 60 mL/min (>60); Est Glom Filt Rate - Afr Amer 72 mL/min (>60); Estimated Creatinine Clearance 73.46 ml/min; Globulin 4.8 g/dL (2.2-4.2); Glucose 95 mg/dL (74-106); Potassium 3.8 mmol/L (3.5-5.1); Protein, Total 7.5 g/dL (6.4-8.2); Sodium Level 143 mmol/L (136-145)
[2022-10-07 06:27] VITALS: BMI 38.3
[2022-10-07 07:18] LABS: Erythrocyte Sedimentation Rate 47 mm/hr (0-20)
[2022-10-07 07:42] VITALS: BP 124/59; PULSE 80; RESP 17; TEMP 36.9; O2SAT 92
[2022-10-07] MEDS: oxyCODONE CR 15 MG Tablet PO ×2 (09:28→21:44)
[2022-10-07] MEDS: Fenofibrate 48 MG Tablet PO (09:30)
[2022-10-07] MEDS: Losartan Potassium 100 MG Tablet PO (09:30)
[2022-10-07] MEDS: Celecoxib 100 MG Capsule PO (09:30)
[2022-10-07] MEDS: Potassium Chloride Oral Tablet 20 MEQ PO (09:30)
[2022-10-07] MEDS: APIXABAN 5 MG TABLET PO ×2 (09:31→21:44)
[2022-10-07] MEDS: Venlafaxine XR 150 MG Capsule PO (09:31)
[2022-10-07] MEDS: Senna/Docusate Sodium 1 Tablet 2 TABLET PO ×2 (09:31→21:44)
[2022-10-07] MEDS: amLODIPine 10 MG Tablet PO (09:31)
[2022-10-07] MEDS: Pantoprazole Sodium 40 MG Tablet PO (09:31)
[2022-10-07] MEDS: Clopidogrel Bisulfate 75 MG Tablet PO (09:31)
[2022-10-07] MEDS: Nystatin Powder 15gm Bottle 1 APPLIC TOPICAL ×2 (09:32→21:51)
[2022-10-07] MEDS: Gabapentin 100 MG Capsule 200 MG PO ×3 (09:38→17:34)
[2022-10-07] MEDS: Ascorbic Acid 500 MG Tablet 1000 MG PO (12:10)
[2022-10-07] MEDS: Ferrous Sulfate 325 MG Tablet PO (12:10)
[2022-10-07 17:00] VITALS: BMI 38.3
--- NOTE | 2022-10-07 17:43 | SLEEP ---
Met with patient & Lise at bedside. They communicated that Lise would like to stay as bus or truck garage mechanic for Al's 10/09/22 8p outpatient sleep study as he still needs some assistance with using the restroom. We can accomodate her staying in a separate room and we will get her to assist as needed. She will be in Rehab with the patient and come to with him at the time of discharge to at 8p. She will then take him home upon discharge from the sleep study Wednesday morning.
[2022-10-07 19:27] VITALS: BP 125/49; PULSE 76; RESP 18; TEMP 36.6; O2SAT 95
[2022-10-07 20:35] VITALS: BMI 38.3
[2022-10-07] MEDS: Doxazosin 1 MG Tablet PO (21:42)
[2022-10-07] MEDS: traZODone 100 MG Tablet PO (21:42)
[2022-10-07] MEDS: Polyethylene Glycol 3350 17 GM PACKET PO (21:42)
[2022-10-07] MEDS: Atorvastatin Calcium 40 MG Tablet PO (21:44)
[2022-10-08] MEDS: Baclofen 10 MG Tablet 5 MG PO ×3 (05:44→21:01)
[2022-10-08] MEDS: oxyCODONE 5 MG Tablet 10 MG PO ×3 (05:44→18:14)
[2022-10-08 07:27] VITALS: BP 112/67; PULSE 89; RESP 16; TEMP 36.9; O2SAT 94
[2022-10-08] MEDS: Losartan Potassium 100 MG Tablet PO (09:41)
[2022-10-08] MEDS: Clopidogrel Bisulfate 75 MG Tablet PO (09:41)
[2022-10-08] MEDS: Potassium Chloride Oral Tablet 20 MEQ PO (09:41)
[2022-10-08] MEDS: Pantoprazole Sodium 40 MG Tablet PO (09:41)
[2022-10-08] MEDS: Fenofibrate 48 MG Tablet PO (09:41)
[2022-10-08] MEDS: Celecoxib 100 MG Capsule PO (09:42)
[2022-10-08] MEDS: Venlafaxine XR 150 MG Capsule PO (09:42)
[2022-10-08] MEDS: APIXABAN 5 MG TABLET PO ×2 (09:42→21:01)
[2022-10-08] MEDS: Senna/Docusate Sodium 1 Tablet 2 TABLET PO ×2 (09:42→21:00)
[2022-10-08] MEDS: amLODIPine 10 MG Tablet PO (09:42)
[2022-10-08] MEDS: oxyCODONE CR 15 MG Tablet PO ×2 (09:42→21:41)
[2022-10-08] MEDS: Gabapentin 100 MG Capsule 200 MG PO ×3 (09:42→18:14)
[2022-10-08] MEDS: Nystatin Powder 15gm Bottle 1 APPLIC TOPICAL ×2 (09:49→21:00)
--- NOTE | 2022-10-08 11:17 | PCM.PROGNOTE ---
Subjective Subjective Afebrile VSS Maintaining appropriate oxygen saturation on RA Oral intake is good Discussed with nursing - no problems that need addressed Reviewed the PT/OT/ST notes Medication list reviewed. All lab from yesterday was personally reviewed. White blood cell count is 7.7 with an unremarkable differential. Hemoglobin is stable at 8 and the platelets are within normal limits. ESR is 47. Sodium and potassium are within normal limits and the BUN is 12 with a stable creatinine at 1.31 although this is elevated for him. He has good fluid intake. LFTs are normal and the total CK is 38. CRP is 36, down from 51 last week. Objective Data Objective Data Vital Signs: Vital Signs Temp Pulse Resp BP Pulse Ox O2 Del Method 98.4 F 89 16 112/67 94 Room Air 10/08/22 07:27 10/08/22 07:27 10/08/22 07:27 10/08/22 07:27 10/08/22 07:27 10/08/22 07:27 Oxygen Delivery Method Room Air Weight: 306 lb 14.135 oz Body Mass Index (BMI) 38.3 Intake & Output: Intake and Output for Last 24 Hours 10/06/22 10/07/22 10/08/22 23:59 23:59 23:59 Intake Total 2699 / 2699 2375 / 2375 973 / 973 Output Total 1800 / 1800 2400 / 2400 800 / 800 Balance 899 / 899 -25 / -25 173 / 173 Medical Nutrition Assessment Dietitian: Malnutrition Criteria Met Start: 09/16/22 15:12 Freq: Status: Active Protocol: Document 09/16/22 15:12 LO (Rec: 09/16/22 15:12 [id number]) Nutrition Malnutrition Evidence of Malnutrition Exists Yes Malnutrition (moderate): Acute Illness/Injury Evidenced By Suboptimal Energy Intake ( Moderate),Weight Loss (Severe) Clinical Problem Acute Disease or Injury Related Malnutrition Etiology moderate related to suboptimal appetite Signs/Symptoms as evidenced by <75% PO intake of estimated energy needs for >7 days and 17lbs (5.2%) weight loss in 1 month Status Active Problem Recommendation Dietitian Recommendations/Changes Continue Cardiac diet to manage medical conditions. Will hold off on ONS at this time due to adequate PO intakes and reassess at follow -up. Lab / Micro Data 10/07/22 05:25 10/07/22 05:25 Micro: Microbiology 09/16/22 03:15 Urine, Clean Catch Urine Culture - Final Culture exhibits no growth. Physical Exam Const alert and no apparent distress General Appearance: cooperative HEENT moist oral mucous membranes Resp normal respiratory effort, no use of accessory muscles and clear to auscultation bilaterally Effort and Inspection: Negative for tachypneic or labored Auscultation: diminished lung sounds Cardio regular rate, regular rhythm and no gallops Cardio Narrative: No change in the systolic or diastolic MM at the second RICS GI normal to inspection, nondistended, normoactive bowel sounds, non-tender and non-distended GI Narrative: no guarding with palpation Extremity Negative for no calf tenderness General Extremity: Negative for edema Skin General Skin Exam: no breakdown Rashes: no rashes Psych affect normal Assessment & Plan Assessment/Plan (1) Chronic anticoagulation: (2) Anemia: QUALIFIERS: Anemia type: unspecified type Qualified Code(s): D64.9 - Anemia, unspecified (3) Aortic valve regurgitation: QUALIFIERS: Cardiac valve disease etiology: nonrheumatic Qualified Code(s): I35.1 - Nonrheumatic aortic (valve) insufficiency (4) Stroke/cerebrovascular accident: QUALIFIERS: CVA mechanism: embolism Precerebral and cerebral artery: middle cerebral artery Laterality of affected vessel: right Qualified Code(s): I63.411 - Cerebral infarction due to embolism of right middle cerebral artery (5) Physical debility: (6) COPD (chronic obstructive pulmonary disease): QUALIFIERS: COPD type: unspecified COPD Qualified Code(s): J44.9 - Chronic obstructive pulmonary disease, unspecified (7) 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 Continue therapy 2. Plan discharge for tomorrow and a sleep study for tomorrow night. Charges/Coding Visit Charges Inpatient E&M: 88255 Subs Hosp L1
[2022-10-08] MEDS: Ferrous Sulfate 325 MG Tablet PO (12:23)
[2022-10-08] MEDS: Ascorbic Acid 500 MG Tablet 1000 MG PO (12:23)
[2022-10-08 15:53] VITALS: BMI 38.3
[2022-10-08 19:27] VITALS: BP 147/59; PULSE 76; RESP 18; TEMP 36.7; O2SAT 93
[2022-10-08] MEDS: Atorvastatin Calcium 40 MG Tablet PO (21:00)
[2022-10-08] MEDS: Polyethylene Glycol 3350 17 GM PACKET PO (21:00)
[2022-10-08] MEDS: traZODone 100 MG Tablet PO (21:01)
[2022-10-08] MEDS: Doxazosin 1 MG Tablet PO (21:01)
[2022-10-08] MEDS: 0.9% Saline Lock 10 ML Syringe IV (21:02)
[2022-10-08 21:15] VITALS: BMI 38.3
[2022-10-08 22:00] VITALS: PULSE 76; RESP 17; O2SAT 71
[2022-10-09 05:00] VITALS: BMI 38.6
[2022-10-09] MEDS: Baclofen 10 MG Tablet 5 MG PO ×2 (06:09→14:00)
[2022-10-09] MEDS: oxyCODONE 5 MG Tablet 10 MG PO ×3 (06:14→17:26)
[2022-10-09 07:30] VITALS: BP 103/52; PULSE 82; RESP 16; TEMP 36.9; O2SAT 90
[2022-10-09] MEDS: Celecoxib 100 MG Capsule PO (08:41)
[2022-10-09] MEDS: Potassium Chloride Oral Tablet 20 MEQ PO (08:41)
[2022-10-09] MEDS: Fenofibrate 48 MG Tablet PO (08:41)
[2022-10-09] MEDS: APIXABAN 5 MG TABLET PO (08:42)
[2022-10-09] MEDS: Venlafaxine XR 150 MG Capsule PO (08:42)
[2022-10-09] MEDS: Losartan Potassium 100 MG Tablet PO (08:42)
[2022-10-09] MEDS: Pantoprazole Sodium 40 MG Tablet PO (08:43)
[2022-10-09] MEDS: Clopidogrel Bisulfate 75 MG Tablet PO (08:43)
[2022-10-09] MEDS: amLODIPine 10 MG Tablet PO (08:44)
[2022-10-09] MEDS: Senna/Docusate Sodium 1 Tablet 2 TABLET PO (08:44)
[2022-10-09] MEDS: Nystatin Powder 15gm Bottle 1 APPLIC TOPICAL (08:44)
[2022-10-09] MEDS: Gabapentin 100 MG Capsule 200 MG PO ×3 (09:47→17:25)
[2022-10-09] MEDS: oxyCODONE CR 15 MG Tablet PO (09:47)
--- NOTE | 2022-10-09 10:10 | PCM.DC ---
Discharge Instructions Diet Discharge Diet: Low fat / Low cholesterol, 2000 Calorie Control Diet and - (low salt) Activity Discharge Activity: May Shower and - (Use a walker or cane when outside ambulating on uneven surfaces. ) May resume sexual activity in: No Restrictions Weight Bearing Status: Full weight bearing Keep extremity elevated above heart level: Legs (When seated in a chair. ) Additional Activity Instructions:: Stay active. Do the exercises given to you by the therapists at least once a day, twice would be best. Dressing / Incision Call your doctor if you observe: Fever of 101 or Higher, Inability to urinate, Shortness of breath, Dizziness, Fainting spells, Chest pain, Increased palpitations (irregular heartbeat), Calf discomfort, Uncontrolled pain and - (STROKE symptoms: facial droop, slurred speech, inability to get words out, weakness on 1 side of the body and not the other, numbness on 1 side of the body and not the other, inability to maintain your balance sitting or standing, vertigo. Was) Follow Up Care Please Follow Up With: Eleazar Hernandez, DO When: You will also need to follow up with Dr. Christensen (cardiology), Dr. Vizcaino (hematology/oncology), Dr. Morgan (infectious disease) and Dr. Russo (pain mangement). I would also like you to see Dr. Pablo at the [facility] for your back. We tried to schedule an appt with Dr. Pablo but, apparently you have an outstanding bill dating back to 2018 and they would like you to set up a payment plan before they will schedule and appt. You have appts with all the other doctors scheduled. Test Results: Test results from this visit will be discussed in further detail at your follow-up appointment, if applicable. Pending Tests Upon Discharge: none Discharge Plan Admission Admit Date/Time: 09/15/22 15:16 Primary Reason for Your Visit: Post stroke debility/endocarditis/osteomyelitis Attending Provider: Sylvie Plata Primary Care Provider: Eleazar Hernandez Consulting Providers: Ky Riojas Instructions Patient Instructions: Patent Foramen Ovale, Quantitative Immunoglobulins, What Are Snoring and Sleep Apnea?, Aortic Insufficiency Additional Instructions / Restrictions: 1. You have several doctors to follow up with. We haves scheduled you for appts with Dr. Christensen, Dr. Morgan, Dr. Russo and Dr. Vizcaino. The sleep lab will schedule you an appt with one of the pulmonologists to discuss the results of the sleep study with you. You will need to come to an arrangement with the [facility] to take care of the outstanding bill from 2018 prior to them scheduling you for an appt with Dr. Pablo. They will work with you. 2. I am not sure what caused the bone abnormalities in the L3 and L4 vertebrae in your back but, I am concerned that we the bone bx was inconclusive and the cultures were negative. These changes definitely need to be followed up. It may have been infection......you were on antibiotics at the time of the biopsy and in this case the antibiotic may have suppressed bacterial growth. You are not going to go home on any antibiotics. You have an appt to follow up with Dr. Morgan from infectious disease. 3. You had a test called a protein electrophoresis. This test checks your immunoglobulins. I gave you some literature telling you what this test checks for. One of the immunoglobulins, the IgA, was elevated. I am having you see Dr. Vizcaino from hematology/oncology to work this up further if needed. 4. You are still anemic, that means your red blood cell count is low. You were iron deficient but, we have given you multiple doses of IV iron to correct this and the anemia is not improving. You sometimes lose blood from hemorrhoids (amirah since you are on an anticoagulant). Chronic blood loss leads to iron deficiency. Some people do not absorb iron from the gastrointestinal tract and they have to get intravenous (IV) iron. Dr. Vizcaino can follow you for this and order IV iron if needed. 5. It has been a long haul for you and Dinosaur and it is not over yet. you will need to have the PFO closed and the aortic valve replaced. Dr. Christensen will work with you to get this arranged. After all the cardiac surgery is done you can have the IVC filter placed by Dr. Franc Donohue removed. All you would have to do is call his office. Keep in touch and please call if you have any questions or we can help in any way. You have been in rehab almost 3 months and I feel as though we are friends. I hope it is smooth sailing from here on out. If you need to come back to rehab after the aortic valve surgery we would be happy to have you. GET YOUR TEETH FIXED........this is what likely caused the infection in the heart. I suggest if you have not applied for disability that you do that now. OFFICE: [phone] CELL: [phone] Discharge Orders/Prescriptions Prescriptions: New atorvastatin 40 mg Tablet 40 mg PO QHS Qty: 30 0RF doxazosin 1 mg Tablet 1 mg PO QHS Qty: 30 0RF venlafaxine 150 mg Capsule,Extended Release 24hr 150 mg PO DAILY Qty: 30 0RF baclofen 10 mg Tablet 5 mg PO TID Qty: 90 0RF gabapentin 100 mg Capsule 200 mg PO TIDCM Qty: 90 0RF losartan 100 mg Tablet 100 mg PO DAILY Qty: 30 0RF oxycodone [OxyContin] 15 mg Tablet,Oral Only,Ext.Rel.12 Hr 15 mg PO BID 7 Days Qty: 14 0RF sennosides-docusate sodium [Stool Softener-Stimulant Laxat] 8.6-50 mg Tablet 2 tab PO BID Qty: 120 0RF potassium chloride [Klor-Con M20] 20 mEq Tablet,Er Particles/Crystals 20 meq PO DAILYCM Qty: 30 0RF trazodone 100 mg Tablet 100 mg PO QHS Qty: 30 0RF oxycodone 10 mg tablet 10 mg PO Q6H PRN (Reason: pain) 7 Days Qty: 28 0RF amlodipine 10 mg tablet 10 mg PO DAILY Qty: 30 0RF amlodipine 10 mg Tablet 10 mg PO DAILY Qty: 30 0RF Continued polyethylene glycol 3350 17 g PO/SL QHS alum-mag hydroxide-simeth [Mag-Al Plus Extra Strength] 400-400-40 mg/5 mL Suspension 15 ml PO Q6H PRN PRN (Reason: HEARTBURN OR INDIGESTION) Qty: 1 0RF acetaminophen 325 mg Tablet 650 mg PO Q6H PRN (Reason: pain/fever) ascorbic acid (vitamin C) 500 mg tablet 1,000 mg PO 1200 clopidogrel [Plavix] 75 mg Tablet 75 mg PO DAILY Qty: 30 0RF pantoprazole 40 mg tablet,delayed release (DR/EC) 40 mg PO DAILY Qty: 30 0RF ferrous sulfate [FeroSul] 325 mg (65 mg iron) tablet 325 mg PO DAILY@1200 Qty: 30 0RF Rx Instructions: Take this medication with the Vitamin C and with a meal to improve absorption fenofibrate nanocrystallized 48 mg tablet 48 mg PO DAILYCM Qty: 30 0RF Eliquis 5 mg Tablet 5 mg PO BID Qty: 60 0RF Discontinued Cubicin 950 mg IVPB Q24H amlodipine 10 mg PO/SL DAILY atorvastatin 40 mg PO/SL QHS losartan 50 mg Tablet 50 mg PO DAILY ampicillin-sulbactam 3 g IVPB Q6H venlafaxine 75 mg capsule,extended release 24hr 75 mg PO DAILY baclofen 10 mg tablet 5 mg PO BID gabapentin 100 mg capsule 100 mg PO TIDCM nystatin [Nyamyc] 100,000 unit/gram powder 1 applic topical BID Protocol: *Topical Application Instructions APPLICATION INSTRUCTIONS: groin acidophilus-pectin, citrus 25 million cell -100 mg tablet 1 tab PO TIDCM heparin, porcine (PF) 10 unit/mL syringe 50 units IV QHS Referrals / Follow Up: Eddie Morgan [Other] - 10/14/22 11:00 am Lab,Sleep [Other] - 10/09/22 8:00 pm Mathew Pablo [Other] (Office will call you to make appt. for your back) Padmini Russo MD [Med Staff - Active Staff] - 10/12/22 8:45 am Eleazar Hernandez DO [Primary Care Provider] - 10/15/22 8:50 am (make an appt with in 2 weeks) Trevor Christensen MD [Med Staff - Active Staff] - 10/13/22 11:00 am Andre Vizcaino MD [Med Staff - Active Staff] - 10/13/22 3:00 pm Disposition Disposition (needs filled in before D/C Order can be placed): Home, Self Care
[2022-10-09] MEDS: Ferrous Sulfate 325 MG Tablet PO (12:16)
[2022-10-09] MEDS: Ascorbic Acid 500 MG Tablet 1000 MG PO (12:17)
--- NOTE | 2022-10-09 15:23 | PCM.DC.SUM ---
Providers Date of Admission: 09/15/22 Date of Discharge: 10/09/22 Primary Care Physician: Dr. Eleazar Hernandez, Consultations 09/16/22 11:36 Consult: Infectious Disease Routine Consulting Provider: Ky Riojas Reason for Consult: endocarditis with fever EMERGENT Consult: No MD Notified: Yes Date Notified: 09/16/22 Time Notified: 11:36 Method of Notification: Text Reason For Visit: DEBILITY Diagnosis Discharge Diagnosis (1) Physical debility: Status: Acute Code(s): R53.81 - Other malaise (2) Stroke/cerebrovascular accident: Status: Acute Code(s): I63.9 - Cerebral infarction, unspecified Qualifiers: CVA mechanism: embolism Laterality of affected vessel: right Precerebral and cerebral artery: middle cerebral artery Qualified Code(s): I63.411 - Cerebral infarction due to embolism of right middle cerebral artery (3) PFO (patent foramen ovale): Status: Acute Code(s): Q21.12 - Patent foramen ovale (4) SAH (subarachnoid hemorrhage): Status: Acute Code(s): I60.9 - Nontraumatic subarachnoid hemorrhage, unspecified (5) Aortic valve endocarditis: Status: Acute Code(s): I35.8 - Other nonrheumatic aortic valve disorders (6) Aortic valve regurgitation: Status: Acute Code(s): I35.1 - Nonrheumatic aortic (valve) insufficiency Qualifiers: Cardiac valve disease etiology: nonrheumatic Qualified Code(s): I35.1 - Nonrheumatic aortic (valve) insufficiency Plan: Severe. He is going to follow up with Dr. Christensen who will likely refer to [facility] for AV replacement and closure of the PFO. (7) DVT of lower limb, acute: Status: Acute Code(s): I82.409 - Acute embolism and thrombosis of unspecified deep veins of unspecified lower extremity Qualifiers: Affected thrombotic vein of extremity: unspecified lower extremity distal vein Laterality: right Qualified Code(s): I82.4Z1 - Acute embolism and thrombosis of unspecified deep veins of right distal lower extremity Plan: Gastrocnemius V with extension to the soleus. Could not be anticoagulated at the time due to SAH. Following replacement of the AV and closure of the PFO and is back on anticoagulation The IVC filter can be removed by Dr. Franc Donohue. 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 He has never had a + blood culture. ECHO clearly showed vegetation on the AV which I suspect is related to poor dentition. (10) Septic shock: Status: Resolved Code(s): A41.9 - Sepsis, unspecified organism; R65.21 - Severe sepsis with septic shock Plan: This happened during his initial admission to acute rehab and he had to be transferred to [facility] to have a bx of the new heterogenous changes in L3 and L4 which were presumed to be due to osteomyelitis. (11) HCAP (healthcare-associated pneumonia): Status: Resolved Code(s): J18.9 - Pneumonia, unspecified organism (12) Acute renal failure: Status: Resolved Code(s): N17.9 - Acute kidney failure, unspecified Qualifiers: Acute renal failure type: unspecified Qualified Code(s): N17.9 - Acute kidney failure, unspecified (13) ARF (acute respiratory failure): Status: Resolved Code(s): J96.00 - Acute respiratory failure, unspecified whether with hypoxia or hypercapnia Qualifiers: Respiratory failure complication: hypoxia and hypercapnia Qualified Code(s): J96.01 - Acute respiratory failure with hypoxia; J96.02 - Acute respiratory failure with hypercapnia (14) Anemia: Status: Acute Code(s): D64.9 - Anemia, unspecified Qualifiers: Anemia type: unspecified type Qualified Code(s): D64.9 - Anemia, unspecified Plan: Anemia chronic despite IV iron supplementation, possibly due to chronic infection suppressing BM. (15) Internal and external bleeding hemorrhoids: Status: Acute Code(s): K64.4 - Residual hemorrhoidal skin tags; K64.8 - Other hemorrhoids (16) Iron deficiency: Status: Acute Code(s): E61.1 - Iron deficiency (17) Heme positive stool: Status: Acute Code(s): R19.5 - Other fecal abnormalities (18) Chronic lower back pain: Status: Chronic Code(s): M54.50 - Low back pain, unspecified; G89.29 - Other chronic pain Qualifiers: Back pain laterality: bilateral Sciatica presence: without sciatica Qualified Code(s): M54.50 - Low back pain, unspecified; G89.29 - Other chronic pain (19) Elevated anti-tissue transglutaminase (tTG) IgA level: Status: Acute Code(s): R76.8 - Other specified abnormal immunological findings in serum (20) Chronic anticoagulation: Status: Chronic Code(s): Z79.01 - terminal manager (current) use of anticoagulants (21) Tinea cruris: Status: Resolved Code(s): B35.6 - Tinea cruris (22) GERD (gastroesophageal reflux disease): Status: Chronic Code(s): K21.9 - Gastro-esophageal reflux disease without esophagitis Qualifiers: Esophagitis presence: without esophagitis Qualified Code(s): K21.9 - Gastro-esophageal reflux disease without esophagitis (23) Gout: Status: Chronic Code(s): M10.9 - Gout, unspecified Qualifiers: Chronicity: chronic Gout etiology: other secondary cause Gout site: multiple sites Presence of tophus: without tophus Qualified Code(s): M1A.49X0 - Other secondary chronic gout, multiple sites, without tophus (tophi) (24) Hyperuricemia: Status: Chronic Code(s): E79.0 - Hyperuricemia without signs of inflammatory arthritis and tophaceous disease (25) Hypertension: Status: Chronic Code(s): I10 - Essential (primary) hypertension Qualifiers: Hypertension type: primary hypertension Qualified Code(s): I10 - Essential (primary) hypertension (26) COPD (chronic obstructive pulmonary disease): Status: Chronic Code(s): J44.9 - Chronic obstructive pulmonary disease, unspecified Qualifiers: COPD type: unspecified COPD Qualified Code(s): J44.9 - Chronic obstructive pulmonary disease, unspecified (27) CATHY (obstructive sleep apnea): Status: Suspected Code(s): G47.33 - Obstructive sleep apnea (adult) (pediatric) Plan: Sleep study done on the night of DC from acute rehab. Plan 1. DC home. 2. Sleep study tonight 3. Follow up with Dr. Morgan (ID), Dr. Christensen (cardiology), Dr. Russo (pain management), Dr. Vizcaino (heme ONC for elevated IGA), Dr. Hernandez (PCP) and Dr. Pablo (orthopedics) for back pain. 4. Use the walker or a cane when walking outside the house on uneven surfaces. Medications at Discharge Home Medications polyethylene glycol 3350 17 g PO/SL QHS CONSTIPATION 07/23/22 aluminum-mag hydroxide-simethicone 400 mg-400 mg-40 mg/5 mL oral susp (Mag-Al Plus Extra Strength) 15 ml PO Q6H PRN PRN HEARTBURN OR INDIGESTION #1 mL 09/02/22 acetaminophen 325 mg tablet 650 mg PO Q6H PRN pain/fever 09/15/22 ascorbic acid (vitamin C) 500 mg tablet 1,000 mg PO 1200 supplement 09/15/22 amlodipine 10 mg tablet 10 mg PO DAILY #30 tabs 10/09/22 apixaban 5 mg tablet (Eliquis) 5 mg PO BID Check with primary doctor #60 tabs 10/09/22 atorvastatin 40 mg tablet 40 mg PO QHS #30 tabs 10/09/22 baclofen 10 mg tablet 5 mg (1/2 x 10 mg) PO TID #90 tabs 10/09/22 clopidogrel 75 mg tablet (Plavix) 75 mg PO DAILY Check with primary doctor #30 tabs 10/09/22 doxazosin 1 mg tablet 1 mg PO QHS #30 tabs 10/09/22 fenofibrate nanocrystallized 48 mg tablet 48 mg PO DAILYCM Check with primary doctor #30 tabs 10/09/22 ferrous sulfate 325 mg (65 mg iron) tablet (FeroSul) 325 mg PO DAILY@1200 supplement #30 tabs 10/09/22 gabapentin 100 mg capsule 200 mg (2 x 100 mg) PO TIDCM #90 caps 10/09/22 losartan 100 mg tablet 100 mg PO DAILY #30 tabs 10/09/22 oxycodone 10 mg tablet 10 mg PO Q6H PRN pain 7 days #28 tabs 10/09/22 pantoprazole 40 mg tablet,delayed release 40 mg PO DAILY Check with primary doctor #30 tabs 10/09/22 potassium chloride 20 mEq tablet,extended release(part/cryst) (Klor-Con M) 20 meq PO DAILYCM #30 tabs 10/09/22 sennosides 8.6 mg-docusate sodium 50 mg tablet (Stool Softener-Stimulant Laxative) 2 tab PO BID #120 tabs 10/09/22 trazodone 100 mg tablet 100 mg PO QHS #30 tabs 10/09/22 venlafaxine 150 mg capsule,extended release 24 hr 150 mg PO DAILY #30 caps 10/09/22 Hospital Course Operations None Procedures 2-D Echocardiogram (DEYVI showed a trileaflet aortic valve with thickening of the valve leaflets and filamentous structure noted on the noncoronary cusp suggestive of endocarditis. There was severe aortic valve insufficiency. Left ventricular systolic function was normal.), IVC filter placement (By Dr. Franc Donohue) and PICC line placement (Done at [facility] prior to initial admission to [facility] acute rehab. ) Summary of Care Provided Minutes Spent on Discharge: 60 Hospital Course: PHILIP DU, is a 57 YO M initially admitted to the acute inpt rehab unit at [facility] on 07/24/2022 for aortic valve endocarditis, multiple embolic strokes related to a patent foramen ovale (received TPA at [facility]) and a SAH after the thrombolytic. He complained of R calf pain at admission and an US showed clot in the gastrocnemius vein. He could not be on anticoagulation because of the SAH. Repeat US a few days later showed propagation to the soleus vein and a temporary IVC filter was inserted by Dr. Franc Donohue. Al was on Daptomycin and Unasyn for 6 weeks at presentation to rehab. The back pain continued to escalate from his baseline and on 08/31/[address] of the LS spine that showed multilevel degenerative changes with a heterogeneous appearance of the L3 and L4 vertebrae, suspicious for osteomyelitis. We were in the process of arranging a bone bx by interventional radiology when he became encephalopathic on 09/02/22. Lab revealed new leucocytosis with a left shift. The Creat had increased dramatically to 4.26 and he had oliguria. Procalcitonin was elevated. The BP started to drop and he became hypoxic. He was discharged to [facility] on 09/02/2022 with septic shock with acute renal failure and acute respiratory failure. He was diagnosed with pneumonia and was initially placed on Zosyn and vancomycin. Respiratory panel, COVID 19, streptococcal pneumoniae antigen and MRSA swab were negative. We did not receive a report for sputum culture so I assuming sputum was not collected or had no growth. While at [facility] he had an EGD that was negative per his and he also had a colonoscopy that showed internal and external hemorrhoids and a single polyp in the transverse colon. Because the CT of the LS spine showed heterogenous marrow changes he had a bone bx of L4 done by IR. Results of the L4 vertebral body core biopsy showed extensive crush artifact of the cellular marrow space elements which precluded detailed evaluation. There was no definite evidence of keratin positive cells within the marrow space elements. Cultures were negative. It is unknown at this time whether the heterogeneous appearance of L3 and L4 is due to osteomyelitis or some other process. ate he had no growth on the blood cultures done there. Albaro was returned to acute rehab at [facility] on 09/15/22 for 3 hours of therapy daily to restore function/independence at his prior level. He was ordered to have an additional 6 weeks of Daptomycin and Unasyn which was to conclude on 10/08/[address] Morgan (ID). A DEYVI was done on 09/18/[address] Messina for review. It showed normal left ventricular systolic function and a trileaflet aortic valve with thickening of the valve leaflets and a filamentous structure noted on the noncoronary cusp. There was severe, 4+, aortic valve insufficiency. DEYVI earlier in the course of tx for endocarditis showed 1-2+ AI. Back pain at that time was intractable and Al was started on Oxycontin with Oxycodone for breakthrough pain. With the addition of the Oxycontin he became more comfortable and he was able to sleep at night. We still do not have a definitive answer about the cause of the changes in L3 and L4. MM would be a consideration, amirah with the persistent N/N anemia despite IV iron supplementation. An SPE/immunoelectrophoresis was done and he has a normal IgG with no M spike but, the IgA is elevated. He is being referred to Dr. Vizcaino. Albaro has done very well in therapy. He is independent with eating, grooming, toilet transfer, toileting and tub/shower transfer. He needs minimal assistance with LB dressing and bathing. He has ambulated up to 500 feet with a wheeled walker at standby assist on various surfaces and up to 75' with no device at SBA. He can ascend/descend 25 steps with 2 HR's at SBA. Albaro was discharged home on 10/09/22 and had a sleep study on the night of DC. He will follow up with either Dr. Frye or Dr. Brooks to discuss the results of the sleep study. He will follow up with Dr. Christensen for cardiology and with Dr. Russo for chronic pain management. He has an appt with Dr. Vizcaino regarding the increased IGA with chronic anemia and changes in the L3 and L4 vertebrae. I suggested he follow up with Dr. Pablo at the [facility] for surgical opinion on the acute on chronic back pain and the changes in the L3 and L4 vertebrae. There seems to be a lot of bone loss in these 2 vertebrae and I suspect he may be at risk for vertebral collapse. He will need to have closure of the PFO and replacement of the AV and Dr. Christensen will assist in arranging this at [facility]. At the time of DC the H/H is stable at 8 and the creat is 1.31 which is higher than his previous baseline but, it is stable. Physical Exam Const alert, oriented x3 and no apparent distress General Appearance: cooperative, well kempt and well developed Orientation / Consciousness: Negative for confused HEENT normocephalic, head/scalp atraumatic and moist oral mucous membranes Eyes PERRL, EOMs intact bilaterally, conjunctivae normal and no scleral icterus Eyes Narrative: No visual field cuts. No mattering of the eyelashes and no purulent eye discharge. Neck supple, No nodes and no carotid bruits General: trachea midline Chest Chest: symmetrical chest wall rise Resp normal respiratory effort, no use of accessory muscles and clear to auscultation bilaterally Effort and Inspection: able to speak in complete sentences; Negative for tachypneic Auscultation: diminished lung sounds Cardio regular rate, regular rhythm, no rub and no gallops Cardio Narrative: No ectopy. He has a soft systolic murmur at the second right intercostal space and also a soft diastolic murmur at that location. GI normal to inspection, nondistended, normoactive bowel sounds, soft to palpation and non-tender GI Narrative: no guarding with palpation Back/Spine Back/Spine Narrative: He has pain with palpation of the lower 3 vertebral bodies and with percussion. There is some BL paravertebral muscle spasm. No bruising. Extremity Negative for no calf tenderness General Extremity: Negative for edema Skin no wounds, no jaundice and no petechiae General Skin Exam: no breakdown Rashes: no rashes Neuro CN's II-XII intact bilaterally and moves all extremities Sensorium / Orientation: awake, alert, oriented to person, oriented to place, oriented to time and other Having some trouble wit short term memory since the multiple ischemic strokes due to emboli from PFO. Psych thought process normal, cooperative, affect normal, speech normal, denies hallucinations, denies homicidal ideation and denies suicidal ideation Appearance: appropriate and well kempt Attitude: calm and engaged Activity / Motor Behavior: appropriate eye contact; Negative for psychomotor agitation Speech: normal speech Medical Records Data Medical Nutrition Assessment Dietitian: Malnutrition Criteria Met Start: 09/16/22 15:12 Freq: Status: Active Protocol: Document 09/16/22 15:12 LO (Rec: 09/16/22 15:12 [id number]) Nutrition Malnutrition Evidence of Malnutrition Exists Yes Malnutrition (moderate): Acute Illness/Injury Evidenced By Suboptimal Energy Intake ( Moderate),Weight Loss (Severe) Clinical Problem Acute Disease or Injury Related Malnutrition Etiology moderate related to suboptimal appetite Signs/Symptoms as evidenced by <75% PO intake of estimated energy needs for >7 days and 17lbs (5.2%) weight loss in 1 month Status Active Problem Recommendation Dietitian Recommendations/Changes Continue Cardiac diet to manage medical conditions. Will hold off on ONS at this time due to adequate PO intakes and reassess at follow -up. Weight / BMI Weight Weight: 308 lb 13.882 oz Body Mass Index (BMI) 38.6 ABG / Lab / Microbiology Data 10/07/22 05:25 10/07/22 05:25 Microbiology: Microbiology 09/16/22 03:15 Urine, Clean Catch Urine Culture - Final Culture exhibits no growth. D/C Instructions Discharge Diet: Low fat / Low cholesterol, 2000 Calorie Control Diet and - (low salt) May resume sexual activity in: No Restrictions Weight Bearing Status: Full weight bearing Keep extremity elevated above heart level: Legs (When seated in a chair. ) Additional Activity Instructions: Stay active. Do the exercises given to you by the therapists at least once a day, twice would be best. Call your doctor if you observe: Fever of 101 or Higher, Inability to urinate, Shortness of breath, Dizziness, Fainting spells, Chest pain, Increased palpitations (irregular heartbeat), Calf discomfort, Uncontrolled pain and - (STROKE symptoms: facial droop, slurred speech, inability to get words out, weakness on 1 side of the body and not the other, numbness on 1 side of the body and not the other, inability to maintain your balance sitting or standing, vertigo. Was) Pending Tests Upon Discharge: none Please Follow Up With: Eleazar Hernandez, DO When: You will also need to follow up with Dr. Christensen (cardiology), Dr. Vizcaino (hematology/oncology), Dr. Morgan (infectious disease) and Dr. Russo (pain mangement). I would also like you to see Dr. Pablo at the [facility] for your back. We tried to schedule an appt with Dr. Pablo but, apparently you have an outstanding bill dating back to 2018 and they would like you to set up a payment plan before they will schedule and appt. You have appts with all the other doctors scheduled. Meaningful Use Info Meaningful Use Diagnoses (Choose all that apply): None applicable (He was admitted for vertebral osteomyelitis and AV endocarditis. His first admission to rehab was for multiple embolic CVA's due to a PFO with a small SAH after thrombolytic. He is on a statin and Eliquis. No hx of AF. ) Discharge Plan Admission Admit Date/Time: 09/15/22 15:16 Primary Reason for Your Visit: Post stroke debility/endocarditis/osteomyelitis Attending Provider: Sylvie Plata Primary Care Provider: Eleazar Hernandez Consulting Providers: Ky Riojas Instructions Patient Instructions: Patent Foramen Ovale, Quantitative Immunoglobulins, What Are Snoring and Sleep Apnea?, Aortic Insufficiency Additional Instructions / Restrictions: 1. You have several doctors to follow up with. We haves scheduled you for appts with Dr. Christensen, Dr. Morgan, Dr. Russo and Dr. Vizcaino. The sleep lab will schedule you an appt with one of the pulmonologists to discuss the results of the sleep study with you. You will need to come to an arrangement with the [facility] to take care of the outstanding bill from 2018 prior to them scheduling you for an appt with Dr. Pablo. They will work with you. 2. I am not sure what caused the bone abnormalities in the L3 and L4 vertebrae in your back but, I am concerned that we the bone bx was inconclusive and the cultures were negative. These changes definitely need to be followed up. It may have been infection......you were on antibiotics at the time of the biopsy and in this case the antibiotic may have suppressed bacterial growth. You are not going to go home on any antibiotics. You have an appt to follow up with Dr. Morgan from infectious disease. 3. You had a test called a protein electrophoresis. This test checks your immunoglobulins. I gave you some literature telling you what this test checks for. One of the immunoglobulins, the IgA, was elevated. I am having you see Dr. Vizcaino from hematology/oncology to work this up further if needed. 4. You are still anemic, that means your red blood cell count is low. You were iron deficient but, we have given you multiple doses of IV iron to correct this and the anemia is not improving. You sometimes lose blood from hemorrhoids (amirah since you are on an anticoagulant). Chronic blood loss leads to iron deficiency. Some people do not absorb iron from the gastrointestinal tract and they have to get intravenous (IV) iron. Dr. Vizcaino can follow you for this and order IV iron if needed. 5. It has been a long haul for you and [place] and it is not over yet. you will need to have the PFO closed and the aortic valve replaced. Dr. Christensen will work with you to get this arranged. After all the cardiac surgery is done you can have the IVC filter placed by Dr. Franc Donohue removed. All you would have to do is call his office. Keep in touch and please call if you have any questions or we can help in any way. You have been in rehab almost 3 months and I feel as though we are friends. I hope it is smooth sailing from here on out. If you need to come back to rehab after the aortic valve surgery we would be happy to have you. GET YOUR TEETH FIXED........this is what likely caused the infection in the heart. I suggest if you have not applied for disability that you do that now. OFFICE: [phone] CELL: [phone] Discharge Orders/Prescriptions Prescriptions: New atorvastatin 40 mg Tablet 40 mg PO QHS Qty: 30 0RF doxazosin 1 mg Tablet 1 mg PO QHS Qty: 30 0RF venlafaxine 150 mg Capsule,Extended Release 24hr 150 mg PO DAILY Qty: 30 0RF baclofen 10 mg Tablet 5 mg PO TID Qty: 90 0RF gabapentin 100 mg Capsule 200 mg PO TIDCM Qty: 90 0RF losartan 100 mg Tablet 100 mg PO DAILY Qty: 30 0RF sennosides-docusate sodium [Stool Softener-Stimulant Laxat] 8.6-50 mg Tablet 2 tab PO BID Qty: 120 0RF potassium chloride [Klor-Con M20] 20 mEq Tablet,Er Particles/Crystals 20 meq PO DAILYCM Qty: 30 0RF trazodone 100 mg Tablet 100 mg PO QHS Qty: 30 0RF oxycodone 10 mg tablet 10 mg PO Q6H PRN (Reason: pain) 7 Days Qty: 28 0RF amlodipine 10 mg tablet 10 mg PO DAILY Qty: 30 0RF Continued polyethylene glycol 3350 17 g PO/SL QHS alum-mag hydroxide-simeth [Mag-Al Plus Extra Strength] 400-400-40 mg/5 mL Suspension 15 ml PO Q6H PRN PRN (Reason: HEARTBURN OR INDIGESTION) Qty: 1 0RF acetaminophen 325 mg Tablet 650 mg PO Q6H PRN (Reason: pain/fever) ascorbic acid (vitamin C) 500 mg tablet 1,000 mg PO 1200 clopidogrel [Plavix] 75 mg Tablet 75 mg PO DAILY Qty: 30 0RF pantoprazole 40 mg tablet,delayed release (DR/EC) 40 mg PO DAILY Qty: 30 0RF ferrous sulfate [FeroSul] 325 mg (65 mg iron) tablet 325 mg PO DAILY@1200 Qty: 30 0RF Rx Instructions: Take this medication with the Vitamin C and with a meal to improve absorption fenofibrate nanocrystallized 48 mg tablet 48 mg PO DAILYCM Qty: 30 0RF Eliquis 5 mg Tablet 5 mg PO BID Qty: 60 0RF Discontinued Cubicin 950 mg IVPB Q24H amlodipine 10 mg PO/SL DAILY atorvastatin 40 mg PO/SL QHS losartan 50 mg Tablet 50 mg PO DAILY ampicillin-sulbactam 3 g IVPB Q6H venlafaxine 75 mg capsule,extended release 24hr 75 mg PO DAILY baclofen 10 mg tablet 5 mg PO BID gabapentin 100 mg capsule 100 mg PO TIDCM nystatin [Nyamyc] 100,000 unit/gram powder 1 applic topical BID Protocol: *Topical Application Instructions APPLICATION INSTRUCTIONS: groin acidophilus-pectin, citrus 25 million cell -100 mg tablet 1 tab PO TIDCM heparin, porcine (PF) 10 unit/mL syringe 50 units IV QHS Referrals / Follow Up: Eddie Morgan [Other] - 10/14/22 11:00 am Lab,Sleep [Other] - 10/09/22 8:00 pm Mathew Pablo [Other] (Office will call you to make appt. for your back) Padmini Russo MD [Med Staff - Active Staff] - 10/12/22 8:45 am Eleazar Hernandez DO [Primary Care Provider] - 10/15/22 8:50 am (make an appt with in 2 weeks) Trevor Christensen MD [Med Staff - Active Staff] - 10/13/22 11:00 am Andre Vizcaino MD [Med Staff - Active Staff] - 10/13/22 3:00 pm Disposition Disposition (needs filled in before D/C Order can be placed): Home, Self Care Charges/Coding Visit Charges Inpatient E&M: 24104 Disch Hosp >30min
[2022-10-09 18:39] VITALS: BP 149/67; PULSE 69; RESP 18; TEMP 36.5; O2SAT 97
[2022-10-09 19:22] VITALS: BP 120/61; PULSE 83; RESP 16; TEMP 36.6; O2SAT 95
[2022-10-09 20:02] VITALS: PULSE 83; RESP 16
[2022-10-09 20:05] VITALS: BMI 38.6
== END 2022-10-09 20:12 | disposition home or self-care (01) | DRG 288 ==
PROVIDERS: Admitting Provider Internal Medicine; PCP Family Medicine; Visit Provider Internal Medicine
DX: I33.0 Acute and subacute infective endocarditis (principal); J18.9 Pneumonia, unspecified organism; J96.01 Acute respiratory failure with hypoxia; E43 Unspecified severe protein-calorie malnutrition; J96.02 Acute respiratory failure with hypercapnia; I82.4Z1 Acute embolism and thrombosis of unspecified deep veins of right distal lower extremity; J44.0 Chronic obstructive pulmonary disease with (acute) lower respiratory infection; Q21.12 Patent foramen ovale; N17.9 Acute kidney failure, unspecified; M46.20 Osteomyelitis of vertebra, site unspecified; I35.1 Nonrheumatic aortic (valve) insufficiency; I10 Essential (primary) hypertension; G47.33 Obstructive sleep apnea (adult) (pediatric); K21.9 Gastro-esophageal reflux disease without esophagitis; K64.8 Other hemorrhoids; K64.4 Residual hemorrhoidal skin tags; M1A.9XX0 Chronic gout, unspecified, without tophus (tophi); K63.5 Polyp of colon; Z86.73 Personal history of transient ischemic attack (TIA), and cerebral infarction without residual deficits; Y95 Nosocomial condition; Z79.01 Long term (current) use of anticoagulants; G89.29 Other chronic pain; Z87.891 Personal history of nicotine dependence; B35.6 Tinea cruris; Z68.39 Body mass index [BMI] 39.0-39.9, adult; Z79.899 Other long term (current) drug therapy; E66.9 Obesity, unspecified
CPT/HCPCS: 36415; 80053; 81001; 82550; 82728; 82784; 83540; 83550; 83735; 84100; 84165; 84550; 85014; 85018; 85025; 85652; 86140; 86334; 87086; 92507; 92523; 93308; 93312; 93320; 93325; 93971; 94668; 97110; 97112; 97116; 97129; 97130; 97162; 97166; 97530; 97535; 97802; J0878; J1756; J7040; J7050; A4216; J0295; J3490

== ENCOUNTER → 2022-10-09 | Outpatient (CLI) | payer OTHER, MEDICAID, SELFPAY | END | disposition home or self-care (01) | LOC: SL 20:22 | PROVIDERS: PCP Family Medicine; Visit Provider Internal Medicine | DX: G47.10 Hypersomnia, unspecified (principal) | CPT/HCPCS: 95811 ==

== ENCOUNTER 2022-11-03 14:38 | Inpatient (IN) | payer OTHER, SELFPAY ==
[2022-11-03 14:39] VITALS: BP 138/37; PULSE 86; RESP 18; TEMP 36.6; O2SAT 98
[2022-11-03 16:44] VITALS: BMI 36.6
[2022-11-03 17:13] VITALS: BP 150/72
--- NOTE | 2022-11-03 18:01 | CT_ITS ---
INDICATION: diarrhea, lower abd pain EXAMINATION: CT Abdomen And Pelvis W/ Contrast Injection TECHNIQUE: Helically acquired images were obtained of the abdomen and pelvis after IV contrast. A radiation dose optimization technique was used for this scan. IV Contrast dosage and agent: IV 100mL [id number] Oral contrast: None. COMPARISON: None. FINDINGS: Visualized lung bases: Unremarkable Liver: Unremarkable Gallbladder: Unremarkable Spleen: Unremarkable Pancreas: Unremarkable Adrenal Glands: Unremarkable Kidneys: Unremarkable Vasculature: Mild scattered aortoiliac atherosclerotic calcifications. IVC filter in place. GI Tract: There are multiple short segment areas of circumferential bowel wall thickening involving the colon with minimal surrounding fat stranding. The appendix is normal. Lymphadenopathy: None Peritoneum: No ascites. Bladder: Unremarkable Reproductive organs: Unremarkable Bones/Soft tissues: There are diffuse degenerative changes of the spine. CT/Abdomen/Pelvis W IV Cont ONLY IMPRESSION: Findings suspicious for infectious versus inflammatory colitis. Electronically Signed: Marcos Emery MD at 20:01 EDT ,
--- NOTE | 2022-11-03 18:02 | CT_ITS ---
INDICATION: neck pain EXAMINATION: CT Spine Cervical W/O Contrast Injection TECHNIQUE: Helically acquired images were obtained of the cervical spine. 2D reformatted images were reviewed. A radiation dose optimization technique was used for this scan. IV Contrast dosage and agent: None. COMPARISON: None. FINDINGS: VERTEBRAE: No fracture or traumatic subluxation. No discrete lytic or blastic abnormality. Normal alignment. Normal craniocervical junction and cervicothoracic junction. DISCS and SPINAL CANAL: Moderate multilevel degenerative disc disease and spondylosis. No critical stenosis. NECK SOFT TISSUES: No prevertebral soft tissue swelling. There is no cervical adenopathy. LUNG APICES: Clear. CT/Spine Cervical without Contras IMPRESSION: No evidence of acute cervical spinal fracture or spondylolisthesis. Moderate multilevel degenerative disc disease and spondylosis. Electronically Signed: Marcos Emery MD at 19:55 EDT ,
[2022-11-03] MEDS: morphine 8 MG/ML Syringe IV (18:14)
[2022-11-03] MEDS: Ondansetron 4 MG/2 ML Vial IV (18:14)
[2022-11-03 18:28] LABS: Absolute Lymphocyte Count 1.21 X10^3/uL (0.83-4.51); Basophil# 0.03 X10^3/uL; Basophil% 0.4 % (0-1); Eosinophil# 0.14 X10^3/uL; Eosinophils% 1.8 % (0-5); Hematocrit 32.7 % (40-54); Hemoglobin 9.8 g/dL (13.0-16.5); Lymphocyte # 1.21 X10^3/ul (0.83-4.51); Lymphocyte % 15.4 % (19-41); Mean Corpuscular Hgb 24.5 pg (27.0-32.0); Mean Corpuscular Volume 81.8 fL (80-94); Monocyte# 1.44 X10^3/uL; Monocyte% 18.3 % (0-10); NRBC Flagged by Analyzer 0 % (0-5); Neutrophil # 5.03 X10^3/uL (2.7-7.7); Platelet Count 325 K/mm3 (150-450); RBC Distribution Width CV 17.9 % (11.6-14.6); RBC Distribution Width SD 54.1 fl (35.1-43.9); White Blood Count 7.9 K/mm3 (4.4-11.0)
[2022-11-03] MEDS: 0.9% Normal Saline 1,000 ML 125 ML IV (18:33)
[2022-11-03 18:57] LABS: Bacteria 0 SEEN /hpf (None Seen); Mucous, Urine 0 SEEN /hpf (<or=2+)
[2022-11-03 19:06] LABS: Color, Urine Yellow (Yellow); Glucose, Dipstick Normal (Normal); Ketone-Dipstick 5 mg/dl (Negative); Leukocyte Esterase-Dipstick 25 /ul (Negative); Nitrite-Dipstick Negative (Negative); Occult Blood-Urine Negative /ul (Negative); Protein-Dipstick 30 mg/dl (Negative); Specific Gravity, Urine 1.015 (1.002-1.030); Urine Bilirubin Dipstick 1 mg/dL (Negative); Urine Clarity Clear (Clear); Urine Urobilinogen 1 mg/dl (Normal)
[2022-11-03 19:07] LABS: Squamous Epithelial Cells - UA 0-5 SEEN /hpf (0-5)
[2022-11-03 19:07] LABS: ALB/GLOB Ratio 0.6 RATIO (0.9-2.4); AST(SGOT) 14 U/L (15-37); Alanine Aminotransfer ALT/SGPT 23 U/L (16-61); Alkaline Phosphatase 118 U/L (45-117); Anion Gap 7 (5-15); BUN 17 mg/dL (7-18); BUN/Creat Ratio 11.7 RATIO (10-20); Calcium,Total 9.3 mg/dL (8.5-10.1); Chloride 101 mmol/L (98-107); Creatinine, Serum 1.45 mg/dL (0.70-1.30); EST Glomerular Filtration Rate 53 mL/min (>60); Est Glom Filt Rate - Afr Amer 64 mL/min (>60); Estimated Creatinine Clearance 66.37 ml/min; Glucose 88 mg/dL (74-106); Potassium 3.9 mmol/L (3.5-5.1); Sodium Level 134 mmol/L (136-145)
[2022-11-03] MEDS: HYDROmorphone 1 MG/ML Syringe IV ×2 (19:15→21:33)
[2022-11-03 19:36] LABS: Red Blood Cells-Urine 10-25 SEEN /hpf (0-5); White Blood Cells 0-5 SEEN /hpf (0-5)
--- NOTE | 2022-11-03 19:48 | EDS_ITS ---
HPI History of Present Illness Chief Complaint: Lower Extremity Injury Informant: patient Narrative Narrative: Patient is a 57-year-old male with extensive medical history including stroke, PFO, vertebral osteomyelitis, aortic valve endocarditis currently on long-term Bactrim (follows with infectious disease) presenting with worsening right hip pain as well as no diarrhea. Patient states a couple days ago he was having an echocardiogram with the automotive exhaust emissions technician asked him to use his ankles to shimmy himself down in the bed. He states ever since then he has had worsening right hip and groin pain. He feels like maybe he pulled something. Denies any injury or t rauma. He also notes that this morning when he woke up his neck felt stiff. It is on the left side. He states he has had a stiff neck in the past. States it feels like he slept on it wrong. He also notes today he developed green diarrhea. He had 6 episodes already. He does have nausea as well as some mild abdominal pain. Does have a history of diverticulitis. His stroke was in June of this year and he had surgery while he was having surgery he had a second stroke. He completed a 12-week course of IV antibiotics for endocarditis and 3 weeks ago was put back on Bactrim by his infectious disease doctor. He was told he needed surgery for his heart but cannot get until he is more medically stable. Patient denies any recent fevers. No chest pain or difficulty breathing. No other complaints at this time. [facility] Medical History Abnormal LFTs Aortic valve regurgitation Cerebral edema Chronic anticoagulation Chronic back pain Chronic lower back pain Class 3 obesity Colon polyp COPD (chronic obstructive pulmonary disease) DVT of lower limb, acute Dysarthria Elevated TSH Encephalopathy acute Family history of heart disease Former smoker GERD (gastroesophageal reflux disease) Gout HCAP (healthcare-associated pneumonia) Hearing loss, left Heme positive stool Hypertension Hyperuricemia Hypoalbuminemia Internal and external bleeding hemorrhoids Iron deficiency Left atrial enlargement Leukocytosis Normocytic hypochromic anemia Obesity Peripheral vascular disease PFO (patent foramen ovale) Physical debility Polyclonal gammopathy Prediabetes Presence of arterial stent QT prolongation Rheumatoid arthritis SAH (subarachnoid hemorrhage) Septic shock Stroke/cerebrovascular accident Superficial thrombophlebitis Home Medications polyethylene glycol 3350 17 g PO/SL QHS CONSTIPATION 07/23/22 [History Last Taken 07/22/22 08:10] aluminum-mag hydroxide-simethicone 400 mg-400 mg-40 mg/5 mL oral susp (Mag-Al Plus Extra Strength) 15 ml PO Q6H PRN PRN HEARTBURN OR INDIGESTION #1 mL 09/02/22 [Rx Last Taken Unknown] acetaminophen 325 mg tablet 650 mg PO Q6H PRN pain/fever 09/15/22 [History Last Taken Unknown] ascorbic acid (vitamin C) 500 mg tablet 1,000 mg PO 1200 supplement 09/15/22 [History Last Taken Unknown] amlodipine 10 mg tablet 10 mg PO DAILY #30 tabs 10/09/22 [Rx Last Taken Unknown] apixaban 5 mg tablet (Eliquis) 5 mg PO BID Check with primary doctor #60 tabs 10/09/22 [Rx Last Taken Unknown] baclofen 10 mg tablet 5 mg (1/2 x 10 mg) PO TID #90 tabs 10/09/22 [Rx Last Taken Unknown] clopidogrel 75 mg tablet (Plavix) 75 mg PO DAILY Check with primary doctor #30 tabs 10/09/22 [Rx Last Taken Unknown] doxazosin 1 mg tablet 1 mg PO QHS #30 tabs 10/09/22 [Rx Last Taken Unknown] fenofibrate nanocrystallized 48 mg tablet 48 mg PO DAILYCM Check with primary doctor #30 tabs 10/09/22 [Rx Last Taken Unknown] ferrous sulfate 325 mg (65 mg iron) tablet (FeroSul) 325 mg PO DAILY@1200 supplement #30 tabs 10/09/22 [Rx Last Taken Unknown] gabapentin 100 mg capsule 200 mg (2 x 100 mg) PO TIDCM #90 caps 10/09/22 [Rx Last Taken Unknown] losartan 100 mg tablet 100 mg PO DAILY #30 tabs 10/09/22 [Rx Last Taken Unknown] oxycodone 10 mg tablet 10 mg PO Q6H PRN pain 7 days #28 tabs 10/09/22 [Rx Last Taken Unknown] pantoprazole 40 mg tablet,delayed release 40 mg PO DAILY Check with primary doctor #30 tabs 10/09/22 [Rx Last Taken Unknown] potassium chloride 20 mEq tablet,extended release(part/cryst) (Klor-Con M) 20 meq PO DAILYCM #30 tabs 10/09/22 [Rx Last Taken Unknown] sennosides 8.6 mg-docusate sodium 50 mg tablet (Stool Softener-Stimulant Laxative) 2 tab PO BID #120 tabs 10/09/22 [Rx Last Taken Unknown] trazodone 100 mg tablet 100 mg PO QHS #30 tabs 10/09/22 [Rx Last Taken Unknown] venlafaxine 150 mg capsule,extended release 24 hr 150 mg PO DAILY #30 caps 10/09/22 [Rx Last Taken Unknown] oxycodone 15 mg tablet,crush resistant,extended release 12 hr (OxyContin) mg PO 11/03/22 [History Last Taken Unknown] sulfamethoxazole 800 mg-trimethoprim 160 mg tablet tab 11/03/22 [History Last Taken Unknown] Allergy/AdvReac Type Severity Reaction Status Date / Time cephalexin Allergy Shortness Verified 11/03/22 14:41 of breath Family History Other Heart disease Surgical History H/O hand surgery History of bowel resection Hx of total knee arthroplasty 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 S/P PICC central line placement Social History household members: spouse Smoking Status: Former smoker alcohol intake: current alcohol intake frequency: holidays/special occasions only substance use type: does not use caffeine: No ROS ROS ED Constitutional Constitutional ED: Denies chills or fever(s) Eyes Eyes: Denies change in vision ENT ENT ED: Denies sore throat Cardiovascular Cardiovascular: Denies chest pain or palpitations Respiratory/Chest Respiratory/Chest: Denies cough or dyspnea Gastrointestinal Gastrointestinal: Reports abdominal pain, diarrhea and nausea; Denies vomiting Musculoskeletal Musculoskeletal: Reports neck pain and other Details: right hip pain Integumentary Denies rash Neurologic Neurologic: Denies headache(s), paresthesias or weakness Psychiatric Psychiatric: Denies anxiety Hematologic/Lymphatic Hematologic/Lymphatic: Denies easy bleeding or easy bruising EXAM Physical Exam Const Vital Signs: 11/03/22 14:39 11/03/22 17:13 11/03/22 19:57 Temperature 97.8 F 98.8 F Temperature Source Temporal Oral Pulse Rate 86 84 Respiratory Rate 18 18 Blood Pressure 138/37 H 150/72 H 131/48 H Blood Pressure Mean 70 98 75 Pulse Ox 98 95 Oxygen Delivery Method Room Air Room Air Positive well nourished, well developed and obese General Appearance ED: well developed Nutritional Appearance: obese HEENT Reports moist mucous membranes Eyes PERRL and EOMs intact bilaterally Neck supple Neck Narrative: Decreased range of motion, tenderness palpation of the left lateral neck muscles Chest Wall inspection of chest normal and palpation of chest normal Resp normal respiratory effort and clear to auscultation bilaterally Cardio regular rate and regular rhythm GI normal to inspection, nondistended, normoactive bowel sounds Palpation: soft and tender LLQ Extremity Extremity Narrative: Right lower extremity: Tenderness to palpation of the right hip. Does not allow for range of motion. Positive short arc range of motion pain of the right hip. No significant tenderness palpation of the distal femur or knee. 2+ radial pulses. Equal palpable pulses of the lower extremities Neuro oriented x3 Sensorium / Orientation: alert Motor Exam: general weakness Psych mental status grossly normal Skin no rashes or lesions noted and no wounds MDM MDM MDM Narrative Medical decision making narrative: Patient is evaluated for right hip pain has been worsening and is now unable to walk because of it. He has a complex medical history including recent stroke, infective endocarditis of the aortic valve and possible osteomyelitis of his vertebrae. Is afebrile in the emergency room. CBC shows a stable anemia with a hemoglobin of 9.8 but his white blood cell count is normal. CMP shows mild's renal insufficiency with a creatinine of 1.45 but this appears to be near his baseline over the past month. Urinalysis shows 10-25 red blood cells but not consistent with infection. I did obtain a CRP and ESR which were elevated. His ESR seems chronically elevated around 52 however his CRP is significantly elevated from where he was a couple months ago at 133. CT of the abdomen and pelvis obtained as he is having some diarrhea as well as pain in his lower abdomen and will evaluate the right hip as well. I also obtained a CT of the cervical spine looking for any lesions eval he does not have midline tenderness. Patient receives initially 8 mg IV morphine and then 1 mg IV Dilaudid. He requires a redosed with IV Dilaudid as he still states he is having a lot of pain. He is given maintenance fluids in the emergency room. CT of the abdomen and pelvis is suspicious for infectious versus inflammatory colitis however no acute abnormality of the hip or bones is noted. CT of the cervical spine shows degenerative changes with no other acute process. Patient continues to have significant pain I try to range of motion his hip. I do not feel that I can effectively rule out a septic joint which she is at high risk of due to his known endocarditis. Case is discussed with Dr. Hemphill, Ortho on-call, who recommends likely IR guided joint aspiration tomorrow and he will evaluate on the floor. I did speak with surgery on-call, Dr. Leal, given his CT findings of inflammatory versus infectious colitis. We will start with stool studies as the CT on review by surgery is not overly impressive and this possibly is an over read. He has had diarrhea today and will need to be ruled out for C. difficile. Patient is started on broad-spectrum antibiotics, vancomycin and Zosyn (has a documented allergy to Rocephin). Blood cultures are pending. Case is discussed admitting physician and will be admitted to the PCU due to his history of endocarditis. Patient is not having any cardiopulmonary symptoms in the ER so I do not think a cardiopulmonary work-up is indicated at this time. Differential diagnosis includes colitis, C. difficile infection, septic joint, hip fracture, pelvic fracture and bursitis of the hip Lab Data Labs: Laboratory Results - last 24 hr 11/03/22 11/03/22 11/03/22 18:17 18:45 21:30 WBC 7.9 RBC 4.00 L Hgb 9.8 L Hct 32.7 L MCV 81.8 MCH 24.5 L MCHC 30.0 L RDW Std Deviation 54.1 H RDW Coeff of Ghassan 17.9 H Plt Count 325 MPV 11.0 Immature Gran % (Auto) 0.100 Neut % (Auto) 64.0 Lymph % (Auto) 15.4 L [place] % (Auto) 18.3 H Eos % (Auto) 1.8 Baso % (Auto) 0.4 Absolute Neuts (auto) 5.0 Absolute Lymphs (auto) 1.21 Nucleated RBC % 0 ESR 52 H Sodium 134 L Potassium 3.9 Chloride 101 Carbon Dioxide 26.0 Anion Gap 7 BUN 17 Creatinine 1.45 H Estim Creat Clear Calc 66.37 Est GFR (MDRD) Af Amer 64 Est GFR (MDRD) Non-Af 53 L BUN/Creatinine Ratio 11.7 Glucose 88 Lactic Acid 1.0 Calcium 9.3 Total Bilirubin 0.20 AST 14 L ALT 23 Alkaline Phosphatase 118 H C-React Prot Ext Range 133.00 H Total Protein 8.0 Albumin 3.0 L Globulin 5.0 H Albumin/Globulin Ratio 0.6 L Urine Color Yellow Urine Clarity Clear Urine pH 6.0 Ur Specific [place] 1.015 Urine Protein 30 H Urine Glucose (UA) Normal Urine Ketones 5 H Urine Occult Blood Negative Urine Nitrite Negative Urine Bilirubin 1 H Urine Urobilinogen 1 H Ur Leukocyte Esterase 25 H Urine RBC 10-25 SEEN Urine WBC 0-5 SEEN Ur Squamous Epith Cells 0-5 SEEN Urine Bacteria 0 SEEN Urine Mucus 0 SEEN Radiography Diagnostic Testing: Clinical Impression(s) from Imaging Studies Abdomen/Pelvis CT 11/03/22 18:01 IMPRESSION: Findings suspicious for infectious versus inflammatory colitis. Electronically Signed: Marcos Emery MD at 20:01 EDT , ADDENDUM: 11/03/222022 IMPRESSION: undefined Cervical Spine CT 11/03/22 18:02 IMPRESSION: No evidence of acute cervical spinal fracture or spondylolisthesis. Moderate multilevel degenerative disc disease and spondylosis. Electronically Signed: Marcos Emery MD at 19:55 EDT , Femur X-Ray 11/03/22 21:50 IMPRESSION: No acute radiographic abnormalities. Mild degenerative changes of the knee and right hip. Electronically Signed: Marcos Emery MD at 22:55 EDT , Discharge Plan Dx/Rx/DC Orders Clinical Impression: Acute pain of right hip, Physical debility, Diarrhea, CRP elevated, Aortic valve endocarditis Disposition Disposition: Acute Care Hospital [facility] Discharge Date/Time: 11/03/22 23:58
[2022-11-03 19:57] VITALS: BP 131/48; PULSE 84; RESP 18; TEMP 37.1; O2SAT 95
--- NOTE | 2022-11-03 21:50 | RAD_ITS ---
INDICATION: pain EXAMINATION/TECHNIQUE: X-RAY - RIGHT XR Femur Min 2 Views COMPARISON: None. FINDINGS: No acute fracture or malalignment. No blastic or lytic lesions. Mild degenerative changes of the knee and right hip. The soft tissues are unremarkable. RAD/Femur Min 2 Views IMPRESSION: No acute radiographic abnormalities. Mild degenerative changes of the knee and right hip. Electronically Signed: Marcos Emery MD at 22:55 EDT ,
[2022-11-03 22:16] LABS: Erythrocyte Sedimentation Rate 52 mm/hr (0-20)
--- NOTE | 2022-11-03 23:08 | PCM.HP.STD ---
HPI - General General Date of Admission: 11/03/22 Date of Service: 11/03/22 Chief Complaint: R hip pain HPI Narrative PHILIP DU, is a 57 M with a significant history of infective endocarditis; obstructive sleep apnea; DVT x2 of the right leg; CVA; PFO; vertebral osteomyelitis who presents to the ED with excruciating progressively worsening aching right hip pain that started 5 days ago before presentation. His right hip pain worsens or improves with positioning. His pain increases with activity and decreases with rest.Patient can hardly walk because of pain. His pain is nonradiating. Of note he has right knee pain that he thinks is unrelated as the right knee pain is chronic Associated with his symptoms is watery greenish stools x6 that occurred on the same presentation. Patient had multiple doses of IV morphine and Dilaudid at the ED but that did not help his pain. Of note was patient completed 12 weeks of IV antibiotics for aortic valve endocarditis and is currently on Bactrim p.o. Patient was discharged from the acute rehabilitation department on October 13, 2022. Reportedly patient's ID doctor is Dr. Morgan at [facility]. He was also seen by our infectious disease doctor, Dr. Ky Riojas while at acute rehab procedure facility. On this presentation ED discussed the case with orthopedics surgeon on-call who recommended the patient have IR ultrasound-guided drainage of the right hip to rule out septic arthritis. Also ED doctor discussed the case with general surgeon because the patient reported diarrhea. The recommendation of general surgery was that stool studies be obtained. [facility] Medical History Abnormal LFTs Aortic valve regurgitation Cerebral edema Chronic anticoagulation Chronic back pain Chronic lower back pain Class 3 obesity Colon polyp COPD (chronic obstructive pulmonary disease) DVT of lower limb, acute Dysarthria Elevated TSH Encephalopathy acute Family history of heart disease Former smoker GERD (gastroesophageal reflux disease) Gout HCAP (healthcare-associated pneumonia) Hearing loss, left Heme positive stool Hypertension Hyperuricemia Hypoalbuminemia Internal and external bleeding hemorrhoids Iron deficiency Left atrial enlargement Leukocytosis Normocytic hypochromic anemia Obesity Peripheral vascular disease PFO (patent foramen ovale) Physical debility Polyclonal gammopathy Prediabetes Presence of arterial stent QT prolongation Rheumatoid arthritis SAH (subarachnoid hemorrhage) Septic shock Stroke/cerebrovascular accident Superficial thrombophlebitis Home Medications polyethylene glycol 3350 17 g PO/SL QHS CONSTIPATION 07/23/22 [History Last Taken 07/22/22 08:10] aluminum-mag hydroxide-simethicone 400 mg-400 mg-40 mg/5 mL oral susp (Mag-Al Plus Extra Strength) 15 ml PO Q6H PRN PRN HEARTBURN OR INDIGESTION #1 mL 09/02/22 [Rx Last Taken Unknown] acetaminophen 325 mg tablet 650 mg PO Q6H PRN pain/fever 09/15/22 [History Last Taken Unknown] ascorbic acid (vitamin C) 500 mg tablet 1,000 mg PO 1200 supplement 09/15/22 [History Last Taken Unknown] amlodipine 10 mg tablet 10 mg PO DAILY #30 tabs 10/09/22 [Rx Last Taken Unknown] apixaban 5 mg tablet (Eliquis) 5 mg PO BID Check with primary doctor #60 tabs 10/09/22 [Rx Last Taken Unknown] baclofen 10 mg tablet 5 mg (1/2 x 10 mg) PO TID #90 tabs 10/09/22 [Rx Last Taken Unknown] clopidogrel 75 mg tablet (Plavix) 75 mg PO DAILY Check with primary doctor #30 tabs 10/09/22 [Rx Last Taken Unknown] doxazosin 1 mg tablet 1 mg PO QHS #30 tabs 10/09/22 [Rx Last Taken Unknown] fenofibrate nanocrystallized 48 mg tablet 48 mg PO DAILYCM Check with primary doctor #30 tabs 10/09/22 [Rx Last Taken Unknown] ferrous sulfate 325 mg (65 mg iron) tablet (FeroSul) 325 mg PO DAILY@1200 supplement #30 tabs 10/09/22 [Rx Last Taken Unknown] gabapentin 100 mg capsule 200 mg (2 x 100 mg) PO TIDCM #90 caps 10/09/22 [Rx Last Taken Unknown] losartan 100 mg tablet 100 mg PO DAILY #30 tabs 10/09/22 [Rx Last Taken Unknown] oxycodone 10 mg tablet 10 mg PO Q6H PRN pain 7 days #28 tabs 10/09/22 [Rx Last Taken Unknown] pantoprazole 40 mg tablet,delayed release 40 mg PO DAILY Check with primary doctor #30 tabs 10/09/22 [Rx Last Taken Unknown] potassium chloride 20 mEq tablet,extended release(part/cryst) (Klor-Con M) 20 meq PO DAILYCM #30 tabs 10/09/22 [Rx Last Taken Unknown] sennosides 8.6 mg-docusate sodium 50 mg tablet (Stool Softener-Stimulant Laxative) 2 tab PO BID #120 tabs 10/09/22 [Rx Last Taken Unknown] trazodone 100 mg tablet 100 mg PO QHS #30 tabs 10/09/22 [Rx Last Taken Unknown] venlafaxine 150 mg capsule,extended release 24 hr 150 mg PO DAILY #30 caps 10/09/22 [Rx Last Taken Unknown] oxycodone 15 mg tablet,crush resistant,extended release 12 hr (OxyContin) mg PO 11/03/22 [History Last Taken Unknown] sulfamethoxazole 800 mg-trimethoprim 160 mg tablet tab 11/03/22 [History Last Taken Unknown] Allergy/AdvReac Type Severity Reaction Status Date / Time cephalexin Allergy Shortness Verified 11/03/22 14:41 of breath Family History Other Heart disease Surgical History H/O hand surgery History of bowel resection Hx of total knee arthroplasty 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 S/P PICC central line placement Social History household members: spouse Smoking Status: Former smoker alcohol intake: current alcohol intake frequency: holidays/special occasions only substance use type: does not use caffeine: No ROS ROS Narrative Pertinent positives and pertinent negatives as noted in HPI. All other systems were reviewed and are negative Vital Signs Vital Signs Vital Signs: 11/03/22 14:39 11/03/22 17:13 11/03/22 19:57 Temperature 97.8 F 98.8 F Temperature Source Temporal Oral Pulse Rate 86 84 Respiratory Rate 18 18 Blood Pressure 138/37 H 150/72 H 131/48 H Blood Pressure Mean 70 98 75 Pulse Ox 98 95 Oxygen Delivery Method Room Air Room Air Weight Weight: 133 kg Body Mass Index (BMI) 36.6 Physical Exam Narrative Physical exam: General: Well-nourished, well-developed. Head: Normocephalic, atraumatic, no tenderness Eyes: Vision is grossly intact. EOMI ENT, no trauma, moist mucous membranes, no rhinorrhea Neck: Nontender, No thyromegaly. CVS: Regular rate and rhythm. S1-S2 present. No murmur, gallop or rub. Respiratory : clear to auscultation bilaterally, chest wall nontender Abdomen: Soft, nontender, nondistended, normal bowel sounds, no masses : Deferred Back: Nontender, no CVA tenderness, no midline spinal tenderness, deformities, step-offs Extremities: Right hip tender. Left hip nontender. Skin: Normal color, no trauma, abrasions Neuro: Alert, oriented, cranial nerves II through XII grossly intact. Psychiatry: Normal mood. Normal affect. Not depressed. Not anxious. Results Lab / Micro Data 11/03/22 18:17 11/03/22 18:17 Labs: Laboratory Results - last 24 hr 11/03/22 18:17: WBC 7.9, RBC 4.00 L, Hgb 9.8 L, Hct 32.7 L, MCV 81.8, MCH 24.5 L, MCHC 30.0 L, RDW Std Deviation 54.1 H, RDW Coeff of Ghassan 17.9 H, Plt Count 325, MPV 11.0, Immature Gran % (Auto) 0.100, Neut % (Auto) 64.0, Lymph % (Auto) 15.4 L, [place] % (Auto) 18.3 H, Eos % (Auto) 1.8, Baso % (Auto) 0.4, Absolute Neuts (auto) 5.0, Absolute Lymphs (auto) 1.21, Nucleated RBC % 0, Sodium 134 L, Potassium 3.9, Chloride 101, Carbon Dioxide 26.0, Anion Gap 7, BUN 17, Creatinine 1.45 H, Estim Creat Clear Calc 66.37, Est GFR (MDRD) Af Amer 64, Est GFR (MDRD) Non-Af 53 L, BUN/Creatinine Ratio 11.7, Glucose 88, Lactic Acid 1.0, Calcium 9.3, Total Bilirubin 0.20, AST 14 L, ALT 23, Alkaline Phosphatase 118 H, Total Protein 8.0, Albumin 3.0 L, Globulin 5.0 H, Albumin/Globulin Ratio 0.6 L 11/03/22 18:45: Urine Color Yellow, Urine Clarity Clear, Urine pH 6.0, Ur Specific [place] 1.015, Urine Protein 30 H, Urine Glucose (UA) Normal, Urine Ketones 5 H, Urine Occult Blood Negative, Urine Nitrite Negative, Urine Bilirubin 1 H, Urine Urobilinogen 1 H, Ur Leukocyte Esterase 25 H, Urine RBC 10-25 SEEN, Urine WBC 0-5 SEEN, Ur Squamous Epith Cells 0-5 SEEN, Urine Bacteria 0 SEEN, Urine Mucus 0 SEEN 11/03/22 21:30: ESR 52 H, C-React Prot Ext Range 133.00 H Radiology Impression Abdomen/Pelvis CT 11/03/22 18:01 IMPRESSION: Findings suspicious for infectious versus inflammatory colitis. Electronically Signed: Marcos Emery MD at 20:01 EDT , ADDENDUM: 11/03/222022 IMPRESSION: undefined Cervical Spine CT 11/03/22 18:02 IMPRESSION: No evidence of acute cervical spinal fracture or spondylolisthesis. Moderate multilevel degenerative disc disease and spondylosis. Electronically Signed: Marcos Emery MD at 19:55 EDT , Femur X-Ray 11/03/22 21:50 IMPRESSION: No acute radiographic abnormalities. Mild degenerative changes of the knee and right hip. Electronically Signed: Marcos Emery MD at 22:55 EDT , Assessment & Plan Assessment/Plan (1) Right hip pain: (2) Aortic valve endocarditis: (3) Diarrhea: QUALIFIERS: Diarrhea type: unspecified type Qualified Code(s): R19.7 - Diarrhea, unspecified PLAN: Plan Acute Intractable right hip pain Differential diagnosis include possible right hip septic arthritis. Radiology impression of femur x-ray: No acute radiographic abnormalities. Mild degenerative changes of the knee and right hip. Right hip x-ray was independently interpreted by hospitalist and I agree with radiologist interpretation. Home oxycodone as needed continued. Dilaudid as needed ordered. Per orthopedic surgery recommendation will consult IR for possible ultrasound-guided aspiration of right hip. Vancomycin and Zosyn started emergency department and continued. Hold home Bactrim. Orthopedic surgeon consulted. History of DVT Patient has a Grant filter. Hold off Eliquis at this time. Of note reportedly had 2 small blood clots below the right knee. With Grant filter in place and no history of PE will not order any additional anticoagulation at this time. Diarrhea Abdomen/pelvis CT with findings suspicion for infectious versus inflammatory colitis. Stool studies including C. difficile ordered emergency department, follow-up History of infective aortic valve endocarditis Unclear status at this time. Antibiotics as above. Antibiotics as above. Cervical spine CT with chronic changes DVT prophylaxis: SCDs as above. Grant filter as above. Time spent in the patient's overall evaluation,decision-making process, review of diagnostic data, adjustment of management, discussion with other providers, nursing nursing and ancillary staff involved in patient's care documentation, 65 minutes. Charges/Coding Visit Charges Inpatient E&M: 31053 Init Hosp L3
[2022-11-03] MEDS: Venlafaxine XR 150 MG Capsule PO (23:27)
[2022-11-03] MEDS: traZODone 100 MG Tablet PO (23:27)
[2022-11-03] MEDS: Baclofen 10 MG Tablet PO (23:27)
[2022-11-03 23:29] VITALS: BP 119/38; PULSE 77; RESP 18; TEMP 37; O2SAT 94
[2022-11-03 23:56] VITALS: BMI 36.3
[2022-11-04] VITALS (11 sets, daily range): BP systolic 130–153; BP diastolic 41–57; PULSE 74–88; RESP 14–19; TEMP 36.6–37.1; O2SAT 89–98; BMI 36.3
[2022-11-04] MEDS: Acetaminophen 325 MG Tablet 650 MG PO ×3 (00:49→17:46)
[2022-11-04] MEDS: Gabapentin 100 MG Capsule 200 MG PO ×4 (00:50→17:47)
[2022-11-04] MEDS: 0.9% Saline Lock 10 ML Syringe IV ×4 (00:50→23:54)
[2022-11-04] MEDS: oxyCODONE 5 MG Tablet 10 MG PO ×3 (01:36→17:47)
--- NOTE | 2022-11-04 03:59 | PCM.RX.CS ---
Consult Antibiotic Management Pharmacy has been consulted to manage selected antiobiotic: Vancomycin Type of Intervention Type of Consult: New start Labs Labs: Sodium 134 mmol/L (136-145) L 11/03/22 18:17 Potassium 3.9 mmol/L (3.5-5.1) 11/03/22 18:17 Chloride 101 mmol/L (98-107) 11/03/22 18:17 Carbon Dioxide 26.0 mmol/L (21.0-32.0) 11/03/22 18:17 Anion Gap 7 (5-15) 11/03/22 18:17 BUN 17 mg/dL (7-18) 11/03/22 18:17 Creatinine 1.45 mg/dL (0.70-1.30) H 11/03/22 18:17 Est GFR (MDRD) Af Amer 64 mL/min (>60) 11/03/22 18:17 Est GFR (MDRD) Non-Af 53 mL/min (>60) L 11/03/22 18:17 BUN/Creatinine Ratio 11.7 RATIO (10-20) 11/03/22 18:17 Glucose 88 mg/dL (74-106) 11/03/22 18:17 Pharmacy Plan for Drug Dosing Pharmacy Plan for Drug Dosing: Pharmacy Service will continue to monitor and adjust dosing as required. Follow-Up Labs Follow-Up Labs: Trough: Vancomycin Date/Time Labs Ordered Labs to be done on [date and time ordered]: 11/04 @ 2300
--- NOTE | 2022-11-04 05:08 | NURSING ---
placed pt on 2L NC while asleep, pt 02 sats dropped to 89% on RA while asleep. Pt 96% on 2L NC at this time.
[2022-11-04] MEDS: Baclofen 10 MG Tablet 5 MG PO ×3 (05:10→21:53)
[2022-11-04 06:24] LABS: Absolute Lymphocyte Count 1.01 X10^3/uL (0.83-4.51); Absolute Neutrophil Count 3.2 X10^3/uL (2.0-7.7); Basophil# 0.02 X10^3/uL; Basophil% 0.4 % (0-1); Eosinophil# 0.12 X10^3/uL; Eosinophils% 2.2 % (0-5); Lymphocyte # 1.01 X10^3/ul (0.83-4.51); Lymphocyte % 18.6 % (19-41); Mean Corpuscular Volume 83.3 fL (80-94); Mean Platelet Vol. 10.7 fl (6.2-12.0); Monocyte# 1.07 X10^3/uL; Monocyte% 19.7 % (0-10); NRBC Flagged by Analyzer 0 % (0-5); Neutrophil # 3.19 X10^3/uL (2.7-7.7); Neutrophil % 58.9 % (47-70); Platelet Count 285 K/mm3 (150-450); RBC Distribution Width CV 17.5 % (11.6-14.6); RBC Distribution Width SD 53.8 fl (35.1-43.9); White Blood Count 5.4 K/mm3 (4.4-11.0)
[2022-11-04 06:59] LABS: Anion Gap 5 (5-15); BUN 11 mg/dL (7-18); Calcium,Total 9.1 mg/dL (8.5-10.1); Chloride 107 mmol/L (98-107); Creatinine, Serum 0.85 mg/dL (0.70-1.30); EST Glomerular Filtration Rate 99 mL/min (>60); Est Glom Filt Rate - Afr Amer 119 mL/min (>60); Estimated Creatinine Clearance 113.22 ml/min; Glucose 97 mg/dL (74-106); Sodium Level 136 mmol/L (136-145)
--- NOTE | 2022-11-04 07:32 | CONS.ORTHO ---
HPI Consult Data Date of Consult: 11/04/22 HPI Narrative Reason for Consultation: Concern for right septic hip arthritis HPI Narrative: PHILIP DU, is a 57 M with history significant for infective endocarditis, obstructive sleep apnea, and history of DVT in the right leg x2, CVA, PFO, vertebral osteomyelitis who presents to the emergency department with worsening pain in his right hip started approximately 5 days ago. Patient states he was on the table for a echocardiogram and repositioning caused pain in his right hip. Pain has not subsided and has worsened. He reports pain is in his right groin. He denies any fevers or chills, nausea vomiting, chest pain or shortness of breath. Patient admits to recent diarrhea as well. He notes pain in the anterior right knee but states this is chronic. He reports neck pain without paresthesias. [facility] Medical History Abnormal LFTs Aortic valve regurgitation Cerebral edema Chronic anticoagulation Chronic back pain Chronic lower back pain Class 3 obesity Colon polyp COPD (chronic obstructive pulmonary disease) DVT of lower limb, acute Dysarthria Elevated TSH Encephalopathy acute Family history of heart disease Former smoker GERD (gastroesophageal reflux disease) Gout HCAP (healthcare-associated pneumonia) Hearing loss, left Heme positive stool Hypertension Hyperuricemia Hypoalbuminemia Internal and external bleeding hemorrhoids Iron deficiency Left atrial enlargement Leukocytosis Normocytic hypochromic anemia Obesity Peripheral vascular disease PFO (patent foramen ovale) Physical debility Polyclonal gammopathy Prediabetes Presence of arterial stent QT prolongation Rheumatoid arthritis SAH (subarachnoid hemorrhage) Septic shock Stroke/cerebrovascular accident Superficial thrombophlebitis Home Medications polyethylene glycol 3350 17 g PO/SL QHS CONSTIPATION 07/23/22 [History Last Taken 07/22/22 08:10] aluminum-mag hydroxide-simethicone 400 mg-400 mg-40 mg/5 mL oral susp (Mag-Al Plus Extra Strength) 15 ml PO Q6H PRN PRN HEARTBURN OR INDIGESTION #1 mL 09/02/22 [Rx Last Taken Unknown] acetaminophen 325 mg tablet 650 mg PO Q6H PRN pain/fever 09/15/22 [History Last Taken Unknown] ascorbic acid (vitamin C) 500 mg tablet 1,000 mg PO 1200 supplement 09/15/22 [History Last Taken Unknown] apixaban 5 mg tablet (Eliquis) 5 mg PO BID Check with primary doctor #60 tabs 10/09/22 [Rx Last Taken Unknown] baclofen 10 mg tablet 5 mg (1/2 x 10 mg) PO TID #90 tabs 10/09/22 [Rx Last Taken Unknown] clopidogrel 75 mg tablet (Plavix) 75 mg PO DAILY Check with primary doctor #30 tabs 10/09/22 [Rx Last Taken Unknown] doxazosin 1 mg tablet 1 mg PO QHS #30 tabs 10/09/22 [Rx Last Taken Unknown] fenofibrate nanocrystallized 48 mg tablet 48 mg PO DAILYCM Check with primary doctor #30 tabs 10/09/22 [Rx Last Taken Unknown] ferrous sulfate 325 mg (65 mg iron) tablet (FeroSul) 325 mg PO DAILY@1200 supplement #30 tabs 10/09/22 [Rx Last Taken Unknown] gabapentin 100 mg capsule 200 mg (2 x 100 mg) PO TIDCM #90 caps 10/09/22 [Rx Last Taken Unknown] losartan 100 mg tablet 100 mg PO DAILY #30 tabs 10/09/22 [Rx Last Taken Unknown] oxycodone 10 mg tablet 10 mg PO Q6H PRN pain 7 days #28 tabs 10/09/22 [Rx Last Taken Unknown] pantoprazole 40 mg tablet,delayed release 40 mg PO DAILY Check with primary doctor #30 tabs 10/09/22 [Rx Last Taken Unknown] potassium chloride 20 mEq tablet,extended release(part/cryst) (Klor-Con M) 20 meq PO DAILYCM #30 tabs 10/09/22 [Rx Last Taken Unknown] sennosides 8.6 mg-docusate sodium 50 mg tablet (Stool Softener-Stimulant Laxative) 2 tab PO BID #120 tabs 10/09/22 [Rx Last Taken Unknown] trazodone 100 mg tablet 100 mg PO QHS #30 tabs 10/09/22 [Rx Last Taken Unknown] venlafaxine 150 mg capsule,extended release 24 hr 150 mg PO DAILY #30 caps 10/09/22 [Rx Last Taken Unknown] oxycodone 15 mg tablet,crush resistant,extended release 12 hr (OxyContin) mg PO 11/03/22 [History Last Taken Unknown] sulfamethoxazole 800 mg-trimethoprim 160 mg tablet tab 11/03/22 [History Last Taken Unknown] amlodipine 10 mg tablet 2.5 mg PO DAILY HTN 11/04/22 [History Last Taken Unknown] Allergy/AdvReac Type Severity Reaction Status Date / Time cephalexin Allergy Shortness Verified 11/03/22 14:41 of breath Family History Other Heart disease Surgical History H/O hand surgery History of bowel resection Hx of total knee arthroplasty 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 S/P PICC central line placement Social History household members: spouse Smoking Status: Former smoker alcohol intake: current alcohol intake frequency: holidays/special occasions only substance use type: does not use caffeine: No ROS ROS Narrative Point review systems obtained, negative unless otherwise noted in HPI. Vital Signs Vital Signs Vital Signs: 11/03/22 14:39 11/03/22 17:13 11/03/22 19:57 Temperature 97.8 F 98.8 F Temperature Source Temporal Oral Pulse Rate 86 84 Respiratory Rate 18 18 Respiratory Effort Respiratory Depth Respiratory Pattern Blood Pressure 138/37 H 150/72 H 131/48 H Blood Pressure Mean 70 98 75 Blood Pressure Source Blood Pressure Position Blood Pressure Location Pulse Ox 98 95 Oxygen Delivery Method Room Air Room Air Oxygen Flow Rate (L/min) 11/03/22 23:29 11/04/22 00:21 11/04/22 00:25 Temperature 98.6 F 98.6 F 98.6 F Temperature Source Temporal Oral Oral Pulse Rate 77 84 78 Respiratory Rate 18 19 H 19 H Respiratory Effort Respiratory Depth Respiratory Pattern Blood Pressure 119/38 L 153/57 H 153/57 H Blood Pressure Mean 65 89 89 Blood Pressure Source Monitor Blood Pressure Position Semi-Fowlers Blood Pressure Location Left Arm Pulse Ox 94 98 98 Oxygen Delivery Method Room Air Room Air Room Air Oxygen Flow Rate (L/min) 11/04/22 00:30 11/04/22 02:25 11/04/22 05:06 Temperature 97.9 F Temperature Source Oral Pulse Rate 78 Respiratory Rate 17 Respiratory Effort Normal Non-Labored Respiratory Depth Normal Respiratory Pattern Normal Blood Pressure 138/51 H Blood Pressure Mean 80 Blood Pressure Source Monitor Blood Pressure Position Semi-Fowlers Blood Pressure Location Right Arm Pulse Ox 98 96 Oxygen Delivery Method Room Air Room Air Nasal Cannula Oxygen Flow Rate (L/min) 2 11/04/22 05:00 11/04/22 05:09 Temperature 97.9 F Temperature Source Oral Pulse Rate 78 Respiratory Rate 17 Respiratory Effort Respiratory Depth Respiratory Pattern Blood Pressure 138/51 H Blood Pressure Mean 80 Blood Pressure Source Blood Pressure Position Blood Pressure Location Pulse Ox 89 96 Oxygen Delivery Method Room Air Nasal Cannula Oxygen Flow Rate (L/min) 2 Weight Weight: 290 lb 5.581 oz Body Mass Index (BMI) 36.3 Physical Exam Narrative General -A&Ox3, NAD, appears stated age. Vital signs stable, afebrile. Respiratory -normal work of breathing, no intercostal retractions. CV -pulses regular, brisk capillary refill ?4 limbs. Abdomen-soft, nontender, nondistended. No guarding, rigidity, rebound tenderness. Musculoskeletal/neurologic -full range of motion nontender throughout bilateral upper extremities, left lower extremity with full sensation and strength in all dermatomes and myotomes. No midline cervical tenderness. Right lower extremity-pain with logroll right hip and pain with short arc range of motion referred to the right groin. No short arc range of motion pain with right knee. No knee effusion is noted. No erythema overlying the right hip. Sensation intact to light touch L3-S1 dermatomes. DF, PF, EHL 5/5. DP pulse 2+ brisk upper refill. Negative Homans' sign. Lab / Micro Data 11/04/22 05:51 11/04/22 05:51 Labs: Laboratory Results - last 24 hr 11/03/22 18:17: WBC 7.9, RBC 4.00 L, Hgb 9.8 L, Hct 32.7 L, MCV 81.8, MCH 24.5 L, MCHC 30.0 L, RDW Std Deviation 54.1 H, RDW Coeff of Ghassan 17.9 H, Plt Count 325, MPV 11.0, Immature Gran % (Auto) 0.100, Neut % (Auto) 64.0, Lymph % (Auto) 15.4 L, [place] % (Auto) 18.3 H, Eos % (Auto) 1.8, Baso % (Auto) 0.4, Absolute Neuts (auto) 5.0, Absolute Lymphs (auto) 1.21, Nucleated RBC % 0, Sodium 134 L, Potassium 3.9, Chloride 101, Carbon Dioxide 26.0, Anion Gap 7, BUN 17, Creatinine 1.45 H, Estim Creat Clear Calc 66.37, Est GFR (MDRD) Af Amer 64, Est GFR (MDRD) Non-Af 53 L, BUN/Creatinine Ratio 11.7, Glucose 88, Lactic Acid 1.0, Calcium 9.3, Total Bilirubin 0.20, AST 14 L, ALT 23, Alkaline Phosphatase 118 H, Total Protein 8.0, Albumin 3.0 L, Globulin 5.0 H, Albumin/Globulin Ratio 0.6 L 11/03/22 18:45: Urine Color Yellow, Urine Clarity Clear, Urine pH 6.0, Ur Specific [place] 1.015, Urine Protein 30 H, Urine Glucose (UA) Normal, Urine Ketones 5 H, Urine Occult Blood Negative, Urine Nitrite Negative, Urine Bilirubin 1 H, Urine Urobilinogen 1 H, Ur Leukocyte Esterase 25 H, Urine RBC 10-25 SEEN, Urine WBC 0-5 SEEN, Ur Squamous Epith Cells 0-5 SEEN, Urine Bacteria 0 SEEN, Urine Mucus 0 SEEN 11/03/22 21:30: ESR 52 H, C-React Prot Ext Range 133.00 H 11/04/22 05:51: WBC 5.4, RBC 3.60 L, Hgb 9.0 L, Hct 30.0 L, MCV 83.3, MCH 25.0 L, MCHC 30.0 L, RDW Std Deviation 53.8 H, RDW Coeff of Ghassan 17.5 H, Plt Count 285, MPV 10.7, Immature Gran % (Auto) 0.200, Neut % (Auto) 58.9, Lymph % (Auto) 18.6 L, [place] % (Auto) 19.7 H, Eos % (Auto) 2.2, Baso % (Auto) 0.4, Absolute Neuts (auto) 3.2, Absolute Lymphs (auto) 1.01, Nucleated RBC % 0, Sodium 136, Potassium 4.0, Chloride 107, Carbon Dioxide 24.0, Anion Gap 5, BUN 11, Creatinine 0.85, Estim Creat Clear Calc 113.22, Est GFR (MDRD) Af Amer 119, Est GFR (MDRD) Non-Af 99, BUN/Creatinine Ratio 13.0, Glucose 97, Calcium 9.1 Radiology Impression Abdomen/Pelvis CT 11/03/22 18:01 IMPRESSION: Findings suspicious for infectious versus inflammatory colitis. Electronically Signed: Marcos Emery MD at 20:01 EDT , ADDENDUM: 11/03/222022 IMPRESSION: undefined Cervical Spine CT 11/03/22 18:02 IMPRESSION: No evidence of acute cervical spinal fracture or spondylolisthesis. Moderate multilevel degenerative disc disease and spondylosis. Electronically Signed: Marcos Emery MD at 19:55 EDT , Femur X-Ray 11/03/22 21:50 IMPRESSION: No acute radiographic abnormalities. Mild degenerative changes of the knee and right hip. Electronically Signed: Marcos Emery MD at 22:55 EDT , Assessment & Plan Assessment/Plan (1) Acute pain of right hip: PLAN: Patient's exam and history of infective endocarditis is concerning for right hip septic arthritis. Interventional radiology image guided arthrocentesis has been ordered. I will await results of the guided needle aspiration. Agree with IV antibiotics. Hold anticoagulant for possible surgical intervention. NPO. mIVF. Will follow.
[2022-11-04] MEDS: Potassium Chloride Oral Tablet 20 MEQ PO (10:02)
[2022-11-04] MEDS: Venlafaxine XR 150 MG Capsule PO (10:03)
[2022-11-04] MEDS: amLODIPine 2.5 MG Tablet PO (10:03)
[2022-11-04] MEDS: Pantoprazole Sodium 40 MG Tablet PO (10:03)
[2022-11-04] MEDS: Losartan Potassium 100 MG Tablet PO (10:03)
[2022-11-04] MEDS: Fenofibrate 48 MG Tablet PO (10:03)
[2022-11-04] MEDS: HYDROmorphone 0.5 MG/0.5 ML SYRINGE 1 MG IV ×3 (10:13→23:49)
--- NOTE | 2022-11-04 10:21 | RAD_ITS ---
PROCEDURE: Fluoroscopic guided right hip aspiration. DATE: November 04, 2022. INDICATION: Male, 57 years old. Septic joint. PHYSICIAN: Melvin Rankin M.D. ACCESS SITE: Right hip hip. NEEDLE: 22-gauge spinal needle. FLUOROSCOPY TIME (if supplied): (0:37) minutes/seconds. 21.85 mGy. One image was submitted. FINDINGS: The risks, benefits, and alternatives to the procedure were explained to the patient. The specific risks of bleeding, infection, and neurovascular injury were detailed and accepted. Witnessed informed consent was obtained. A 22-gauge spinal needle was positioned under radiographic fluoroscopic localization. 10 cc of buffered purulent fluid was aspirated. Approximately 2 cc of Omnipaque 240 instilled for localization purposes. The patient tolerated the procedure well without any immediate complications. The patient was placed supine with head elevated and returned to the floor in stable condition. RAD/Inj/Asp Jaskaran Jt Should/Hip/Knee IMPRESSION: 1. Successful fluoroscopic guided right hip aspiration with removal of 10 cc of purulent fluid. Electronically Signed: Melvin Rankin MD at 14:02 EDT ,
--- NOTE | 2022-11-04 12:05 | CASEMGMT ---
RN ALLAN Face to Face with patient for initial transition planning/care coordination assessment. RN ALLAN introduced self and role at [facility]. Patient lying in chair, alert and oriented, at bedside. Patient willing to participate in assessment and is able to answer all questions appropriately. Care providers, pharmacy, and demographics verified. Patient wishes to discharge home, but if patient will need IV ATBs, patient and prefer to go to [facility]. Patient states he has no further needs or concerns at this time. SW notified of possible Rehab Unit. CM to follow for discharge planning needs that may arise. PCP: Rigoberto Specialists: Zane Morgan, infectious disease; Rafaela, pain; Carrillo, whipped topping supervisor; Cristian, numerical control programmer; Phil FLORES, patient coordinator front desk [facility] Insurance: Assured Benefits Prescription Benefit: yes Living Will/HPOA: yes, Shani HERRERA: , son Living Arrangements: Patient lives with in a 2 story home with bed and bath on first floor. Patient was independent at home, was assisting with bathing and toileting. Transportation: DME/HHC: Patient has raised toilet, cane, walker, grab bars, and bed rail. Patient may benefit from shower chair. Patient has been to [facility] rehab unit in the past. Will monitor for HHC vs RU pending course of treatment and progress with therapy. Disposition Plan: TBD, anticipate HHC vs RU pending course of treatment and progress with therapy. Amina GIANG, RN, CM
[2022-11-04] MEDS: Lidocaine 2% (5ml sdv) 5 ML VIAL.MPF INFILT (13:15)
--- NOTE | 2022-11-04 13:20 | FLU_PTH ---
PATIENT: PHILIP DU LOC: [facility] U#:[id number] AGE/SX: 57/M ROOM: [facility] RE11/03/[address]: Dr. Jhonny Bullock DO : 1965 BED: 1 DIS: 11/17/2022 SPEC #: [id number] RECD: 11/05/22 07:29 STATUS: MAIK REQ #: [id number] ISAURA: 11/04/22 13:[address]: Nathan Hemphill DEPT: CYTOLOGY RECD BY: Denise Narayanan ENTERED: 11/05/22 07:30 SP TYPE: Fluid OTHR DR: Dr. Solitario Arriaza, DO Dr. Eleazar Hernandez, MD Dr. Julito Hastings Dr., MD Dr. Nicholas Spittle, Tissues: Hip, NOS Procedures: Special Stain Group II Surgery Specimen Level IV Cytospin Fluid Comments: @ Ordering doctor for SSII edited from to DR.NSPITT Whiteside by ALICIA at 11/05/22 09 @ Ordering doctor for SUIV edited from to DR.NSPITT Whiteside by ALICIA at 11/05/22 09 @ Ordering doctor for CYSPIN edited from to @ by ALICIA at 11/05/22 09 @ Submitting doctor edited from to DR.NSPITT Stevo VARGAS at 11/05/22954 HEADER OPERATION: Aspiration PRE-OP DIAGNOSIS: Septic right hip joint TISSUE SUBMITTED: Right hip aspiration DIAGNOSIS CYTOLOGY Right hip, fine needle aspiration (cytospin and cell block): Negative for malignant cells. Marked acute inflammation. See comment. AM:marylin 11/06/2022 COMMENT Clinical correlation is necessary. CYTOLOGY STUDY Slides are reviewed. CYTOLOGY GROSS Received is 5 ml of yellow cloudy fluid labeled with the patient's name and and designated per the requisition as right hip aspirate. Submitted for cytology preparation including cell block. / marylin 11/05/2022 TC:2 CPT: 24817, 24575
--- NOTE | 2022-11-04 14:05 | PCM.PN.HOSP ---
Reason for Visit Reason for Visit: Diagnoses Other nonrheumatic aortic valve disorders (11/03/22) Pain in right hip (11/03/22) Diarrhea, unspecified (11/03/22) Subjective Subjective Patient seen at bedside this morning, present. He is sitting back in bedside chair and appears to be avoiding movement. He reports that with any movement, he has significant right hip pain. He otherwise has not had any bowel movement since admission. He notably completed a 12-week course of antibiotics about 1 month ago, but has had mild diarrhea over the last few days. Diarrhea has not been foul-smelling. He denies any fevers or chills currently. He denies any abdominal pain. No other acute concerns. Objective Data Objective Data Vital Signs: Vital Signs Temp Pulse Resp BP Pulse Ox O2 Del Method O2 Flow Rate 98.4 F 75 14 135/51 H 92 Room Air 2 11/04/22 13:00 11/04/22 13:00 11/04/22 13:00 11/04/22 13:00 11/04/22 13:00 11/04/22 13:00 11/04/22 05:09 Oxygen Flow Rate (L/min) 2 Oxygen Delivery Method Room Air Weight: 131.7 kg Body Mass Index (BMI) 36.3 Intake & Output: Intake and Output for Last 24 Hours 11/02/22 11/03/22 11/04/22 23:59 23:59 23:59 Intake Total 100 / 100 1940.83 / 1940.83 Output Total 1750 / 1750 Balance 100 / 100 190.83 / 190.83 Lab / Micro Data Attestation: I reviewed the patient's lab results. 11/04/22 05:51 11/04/22 05:51 Labs: Laboratory Results - last 24 hr 11/03/22 18:17: WBC 7.9, RBC 4.00 L, Hgb 9.8 L, Hct 32.7 L, MCV 81.8, MCH 24.5 L, MCHC 30.0 L, RDW Std Deviation 54.1 H, RDW Coeff of Ghassan 17.9 H, Plt Count 325, MPV 11.0, Immature Gran % (Auto) 0.100, Neut % (Auto) 64.0, Lymph % (Auto) 15.4 L, [place] % (Auto) 18.3 H, Eos % (Auto) 1.8, Baso % (Auto) 0.4, Absolute Neuts (auto) 5.0, Absolute Lymphs (auto) 1.21, Nucleated RBC % 0, Sodium 134 L, Potassium 3.9, Chloride 101, Carbon Dioxide 26.0, Anion Gap 7, BUN 17, Creatinine 1.45 H, Estim Creat Clear Calc 66.37, Est GFR (MDRD) Af Amer 64, Est GFR (MDRD) Non-Af 53 L, BUN/Creatinine Ratio 11.7, Glucose 88, Lactic Acid 1.0, Calcium 9.3, Total Bilirubin 0.20, AST 14 L, ALT 23, Alkaline Phosphatase 118 H, Total Protein 8.0, Albumin 3.0 L, Globulin 5.0 H, Albumin/Globulin Ratio 0.6 L 11/03/22 18:45: Urine Color Yellow, Urine Clarity Clear, Urine pH 6.0, Ur Specific [place] 1.015, Urine Protein 30 H, Urine Glucose (UA) Normal, Urine Ketones 5 H, Urine Occult Blood Negative, Urine Nitrite Negative, Urine Bilirubin 1 H, Urine Urobilinogen 1 H, Ur Leukocyte Esterase 25 H, Urine RBC 10-25 SEEN, Urine WBC 0-5 SEEN, Ur Squamous Epith Cells 0-5 SEEN, Urine Bacteria 0 SEEN, Urine Mucus 0 SEEN 11/03/22 21:30: ESR 52 H, C-React Prot Ext Range 133.00 H 11/04/22 05:51: WBC 5.4, RBC 3.60 L, Hgb 9.0 L, Hct 30.0 L, MCV 83.3, MCH 25.0 L, MCHC 30.0 L, RDW Std Deviation 53.8 H, RDW Coeff of Ghassan 17.5 H, Plt Count 285, MPV 10.7, Immature Gran % (Auto) 0.200, Neut % (Auto) 58.9, Lymph % (Auto) 18.6 L, [place] % (Auto) 19.7 H, Eos % (Auto) 2.2, Baso % (Auto) 0.4, Absolute Neuts (auto) 3.2, Absolute Lymphs (auto) 1.01, Nucleated RBC % 0, Sodium 136, Potassium 4.0, Chloride 107, Carbon Dioxide 24.0, Anion Gap 5, BUN 11, Creatinine 0.85, Estim Creat Clear Calc 113.22, Est GFR (MDRD) Af Amer 119, Est GFR (MDRD) Non-Af 99, BUN/Creatinine Ratio 13.0, Glucose 97, Calcium 9.1 Radiography Diagnostic Testing: Radiology Impression Abdomen/Pelvis CT 11/03/22 18:01 IMPRESSION: Findings suspicious for infectious versus inflammatory colitis. Electronically Signed: Marcos Emery MD at 20:01 EDT , ADDENDUM: 11/03/222022 IMPRESSION: undefined Cervical Spine CT 11/03/22 18:02 IMPRESSION: No evidence of acute cervical spinal fracture or spondylolisthesis. Moderate multilevel degenerative disc disease and spondylosis. Electronically Signed: Marcos Emery MD at 19:55 EDT , Femur X-Ray 11/03/22 21:50 IMPRESSION: No acute radiographic abnormalities. Mild degenerative changes of the knee and right hip. Electronically Signed: Marcos Emery MD at 22:55 EDT , Joint Aspiration/Injection 11/04/22 10:21 IMPRESSION: 1. Successful fluoroscopic guided right hip aspiration with removal of 10 cc of purulent fluid. Electronically Signed: Melvin Rankin MD at 14:02 EDT , Physical Exam Const alert and oriented x3 Constitutional Narrative: Sitting in bedside chair, appears to be keeping still because movement causes pain, conversing normally. General Appearance: cooperative HEENT normocephalic, head/scalp atraumatic, hearing grossly normal bilaterally, nasal mucous membranes and turbinates normal and moist oral mucous membranes Eyes PERRL, EOMs intact bilaterally and conjunctivae normal Neck full ROM, no lymphadenopathy and supple Lymph Lymphatic: no lymphadenopathy noted Chest inspection of chest normal Resp normal respiratory effort, normal air movement, no use of accessory muscles and clear to auscultation bilaterally Cardio regular rate, regular rhythm, no murmurs and peripheral pulses 2+ throughout GI normal to inspection, nondistended, normoactive bowel sounds, soft to palpation, non-tender and non-distended Back/Spine normal ROM Extremity Extremity Narrative: Patient is guarding right hip with exam. Tender to mild palpation, did not attempt any movement. Skin no rashes or lesions noted Psych mental status grossly normal Assessment & Plan Assessment/Plan (1) Acute pain of right hip: PLAN: Plan Patient is a 57-year-old male with history significant for recent infective endocarditis (completed 12-week course of antibiotics in 09/2022), DVT on Eliquis, CVA and CATHY who presented to [facility] ED on 11/03 with 5-day history of worsening right hip pain. 1. Septic arthritis of right hip -Status post joint aspiration by radiology on 11/04 and 10 cc of purulent fluid was removed. Cultures pending. Orthopedics following, will defer to them on potential joint washout. Continue IV vancomycin and Zosyn for now, will narrow as able. We will likely plan for infectious disease consult once cultures are resulted. Continue opiates as needed for pain control. 2. Diarrhea ? CT abdomen pelvis on admission showed findings concerning for inflammatory versus infectious colitis. Patient does report some diarrhea over the last few days, but he has not had any diarrhea since admission. Stool studies pending at this time, will follow up. Can consider IV fluid replacement as needed. 3. History of DVT on Eliquis ? We will discuss timing of restarting of Eliquis with orthopedics. 4. Hypertension ? Okay to continue home losartan and amlodipine. DVT prophylaxis: SCDs CODE STATUS: Full code, verified Expected disposition: TBD Total clinical time spent by myself addressing the patient's medical issues, reviewing all the data, and collaborating with patient's care team: 35 minutes. Charges/Coding Visit Charges Inpatient E&M: 42974 Subs Hosp L2
[2022-11-04 14:24] LABS: Cytology, Body Fluid / CSF SEE PATHOLOGY REPORT
[2022-11-04] MEDS: Ferrous Sulfate 325 MG Tablet PO (14:56)
[2022-11-04] MEDS: Ascorbic Acid 500 MG Tablet 1000 MG PO (14:57)
[2022-11-04 15:03] LABS: Synovial Fld Mononuclear WBC # 3.183 10^3/ul; Synovial Fld Mononuclear WBC % 12.9 %; Synovial Fld Polynuclear WBC % 87.1 %
[2022-11-04 15:39] LABS: Lymph 1 %; Monocyte /Synovial Fluid 1 %; Neutrophil 98 % (0-25)
[2022-11-04 15:40] LABS: AUTO B FLUID DILUENT BKGD CT WBC <0.1 RBC <0.01 (W<.1,R<.01); Appearance /Synovial Fluid Cloudy (CLEAR); Body Fluid QC Type(s) BF1Q; Color / Synovial Fluid White (Pale Yellow); RBC /Synovial Fluid 86 /mm3 (0); Source / Synovial Fluid RIGHT HIP
--- NOTE | 2022-11-04 16:10 | CHAPLAIN ---
Type of Pastoral Visit _x__ Initial Visit ___ Follow-up Visit ___ On-call Visit ___ General Patient Visit ___ Spiritual Assessment ___ Family Conference ___ Bereavement ___ Rapid Response ___ Code Blue ___ Other (describe below) Pastoral Care Referral From _x__ Patient ___ Family ___ Nurse ___ Physician ___ Make Up Worker ___ Backup Administrator ___ Other (describe below) Sacrament/Intervention _x__ Active listening ___ Anointing ___ Scientology ___ Bereavement ___ Communion ___ [place] exploration ___ ___ Life review _x__ Prayer ___ Reconciliation ___ Sacrament of Sick _x__ Supportive presence ___ Wedding ___ Other (describe below) Pastoral Comments patient was seen before in a previous admission; pt gives update on his health; pt was able to enjoy a few weeks at home but had new issue yesterday; pt and spouse are in the room and both express hopefulness that this will still turn into a better situation; pt still has a heart surgery to have when medically cleared so wanting that to happen; prayer and presence welcomed
[2022-11-04] MEDS: Ondansetron 4 MG/2 ML Vial IV (19:52)
[2022-11-04] MEDS: traZODone 100 MG Tablet PO (21:52)
[2022-11-04] MEDS: Doxazosin 1 MG Tablet PO (21:52)
[2022-11-04 23:20] LABS: Vancomycin, Trough Level 27.4 ug/mL (5.0-15.0)
--- NOTE | 2022-11-04 23:40 | PCM.RX.CS ---
Consult Antibiotic Management Pharmacy has been consulted to manage selected antiobiotic: Vancomycin Type of Intervention Type of Consult: Follow-up Labs Labs: Sodium 136 mmol/L (136-145) 11/04/22 05:51 Potassium 4.0 mmol/L (3.5-5.1) 11/04/22 05:51 Chloride 107 mmol/L (98-107) 11/04/22 05:51 Carbon Dioxide 24.0 mmol/L (21.0-32.0) 11/04/22 05:51 Anion Gap 5 (5-15) 11/04/22 05:51 BUN 11 mg/dL (7-18) 11/04/22 05:51 Creatinine 0.85 mg/dL (0.70-1.30) 11/04/22 05:51 Est GFR (MDRD) Af Amer 119 mL/min (>60) 11/04/22 05:51 Est GFR (MDRD) Non-Af 99 mL/min (>60) 11/04/22 05:51 BUN/Creatinine Ratio 13.0 RATIO (10-20) 11/04/22 05:51 Glucose 97 mg/dL (74-106) 11/04/22 05:51 Vancomycin Trough 27.4 ug/mL (5.0-15.0) H 11/04/22 22:57 Microbiology Microbiology: Microbiology 11/04/22 18:30 Stool C. difficile GDH Antigen & Toxins - Final Toxigenic C. difficile Dosing Weight Weight used for dosin.7 kg Estimated Creatinine Clearance Estimated Creatinine Clearance: 139 Goal Trough Goal Trough: 15-20 mcg/mL Pharmacy Plan for Drug Dosing Pharmacy Plan for Drug Dosing: Vancomycin level drawn 7.4hrs post-dose was high at 27.4. This was above the target range of 15-20, even with marked improvement to renal function (SCr from 1.45 to 0.85). Per policy, a random vancomycin level will be drawn in eight hours and further dosing determined from that result. Pharmacy Service will continue to monitor and adjust dosing as required. Follow-Up Labs Follow-Up Labs: Trough: Vancomycin (random) Date/Time Labs Ordered Labs to be done on [date and time ordered]: 11/05/22 @0700
[2022-11-04] MEDS: Vancomycin 125 MG/5 ML Susp PO.SYRINGE PO (23:50)
[2022-11-05] VITALS (17 sets, daily range): BP systolic 115–145; BP diastolic 40–78; PULSE 68–91; RESP 16–18; TEMP 36.6–37.1; O2SAT 85–99
[2022-11-05] MEDS: oxyCODONE 5 MG Tablet 10 MG PO ×3 (02:58→21:19)
[2022-11-05] MEDS: Acetaminophen 325 MG Tablet 650 MG PO ×3 (02:59→21:20)
--- NOTE | 2022-11-05 05:55 | EKG12_ITS ---
Test Reason : AM EKG Blood Pressure : / mmHG Vent. Rate : 090 BPM Atrial Rate : 090 BPM P-R Int : 150 ms QRS Dur : 110 ms QT Int : 376 ms P-R-T Axes : 055 016 036 degrees QTc Int : 459 ms Normal sinus rhythm Incomplete right bundle branch block Borderline ECG When compared with ECG of 29-AUG-2022 14:27, No significant change was found Confirmed by MARYAN CARLOS ([id number]), field map editor CORY STEINBERG ([id number]) on 11/10/2022 9:37:05 AM Referred By: SINGH Confirmed By:MARYAN CARLOS
--- NOTE | 2022-11-05 05:55 | RAD_ITS ---
STUDY: X-RAY CHEST REASON FOR EXAM: Male, 57 years old. PRE OP , HX OF COPD TECHNIQUE: Single AP portable view of the chest. COMPARISON: Comparison is made with prior study dated September 02, 2022. FINDINGS: EKG electrodes are seen. The lungs are clear and expanded. There is no demonstrated pleural abnormality. There is borderline cardiomegaly. Normal mediastinum and daisy. Normal visualized pulmonary arteries. Normal visualized aortic arch and descending thoracic aorta. There are diffuse degenerative changes of the visualized thoracic spine. Normal visualized ribs, clavicles, and shoulders. There is no demonstrated abnormality of the visualized soft tissue structures of the upper abdomen. RAD/Chest 1 View (Portable) IMPRESSION: Borderline cardiomegaly. The lungs are clear. Electronically Signed: Melvin Rankin MD at 9:04 EDT ,
[2022-11-05] MEDS: Vancomycin 125 MG/5 ML Susp PO.SYRINGE PO ×3 (06:24→20:18)
[2022-11-05] MEDS: amLODIPine 2.5 MG Tablet PO (06:24)
[2022-11-05] MEDS: Pantoprazole Sodium 40 MG Tablet PO (06:24)
[2022-11-05] MEDS: Baclofen 10 MG Tablet 5 MG PO ×2 (06:24→21:20)
[2022-11-05] MEDS: Losartan Potassium 100 MG Tablet PO (06:25)
[2022-11-05] MEDS: Gabapentin 100 MG Capsule 200 MG PO ×2 (06:25→20:18)
[2022-11-05] MEDS: HYDROmorphone 0.5 MG/0.5 ML SYRINGE 1 MG IV (06:27)
[2022-11-05 07:08] LABS: Basophil# 0.03 X10^3/uL; Basophil% 0.5 % (0-1); Eosinophil# 0.14 X10^3/uL; Eosinophils% 2.3 % (0-5); Hematocrit 29.7 % (40-54); Hemoglobin 8.7 g/dL (13.0-16.5); Lymphocyte % 14.5 % (19-41); Mean Corp Hgb Conc 29.3 g/dL (32-36); Mean Corpuscular Hgb 24.6 pg (27.0-32.0); Mean Corpuscular Volume 83.9 fL (80-94); Monocyte% 17.8 % (0-10); NRBC Flagged by Analyzer 0 % (0-5); Neutrophil # 4.01 X10^3/uL (2.7-7.7); Neutrophil % 64.7 % (47-70); Platelet Count 288 K/mm3 (150-450); RBC Distribution Width CV 17.4 % (11.6-14.6); RBC Distribution Width SD 54.4 fl (35.1-43.9); Red Blood Count 3.54 M/mm3 (4.6-6.2); White Blood Count 6.2 K/mm3 (4.4-11.0)
--- NOTE | 2022-11-05 07:19 | PCM.PN.ORT ---
Subjective Subjective patient seen and examined. Continues with severe right hip pain with any attempted motion. Denies any fevers, chills, nausea vomiting, chest pain or shortness of breath. Objective Data Objective Data Vital Signs: Vital Signs Temp Pulse Resp BP Pulse Ox O2 Del Method O2 Flow Rate 98.6 F 80 18 137/51 H 92 Room Air 2 11/05/22 06:19 11/05/22 06:19 11/05/22 06:19 11/05/22 06:19 11/05/22 06:19 11/05/22 06:19 11/04/22 05:09 Oxygen Flow Rate (L/min) 2 Oxygen Delivery Method Room Air Weight: 290 lb 5.581 oz Body Mass Index (BMI) 36.3 Intake & Output: Intake and Output for Last 24 Hours 11/03/22 11/04/22 11/05/22 23:59 23:59 23:59 Intake Total 100 / 100 2820.83 / 2820.83 50 / 50 Output Total 2049 / 2049 400 / 400 Balance 100 / 100 770.83 / 770.83 -350 / -350 Lab / Micro Data 11/05/22 06:47 11/04/22 05:51 Labs: Laboratory Results - last 24 hr 11/04/22 13:20: Fluid Source Cancelled, Fluid Color Cancelled, Fluid Appearance Cancelled, Fluid WBC Cancelled, Fluid RBC Cancelled, Fluid Tot Cell Count Cancelled, Fld Polynuclear WBCs # Cancelled, Fld Polynuclear WBCs % Cancelled, Fluid Mononuclear WBCs Cancelled, Fld Mononuclear WBCs % Cancelled, Fluid Neutrophils Cancelled, Fluid Lymphocytes Cancelled, Fluid Monocytes Cancelled, Fluid Plasma Cells Cancelled, Fluid Macrophages Cancelled, Fld Mesothelial Cells Cancelled, Fluid Other Cells Cancelled, Fl Pathologist Comment Cancelled, Fluid Comment 2 Cancelled, Synovial Source RIGHT HIP, Synovial Color White, Synovial Appearance Cloudy, Synovial WBC 25.2000 H, Synovial RBC 86 H, Synovial Tot Cell Ct 25.4000 H, Synov Polynuclear WBCs 21.379, Synov Mononuclear WBCs 3.183, Synovial Neutrophils 98 H, Synovial Lymphocytes 1, Synovial Monocytes 1, Synovial Polynuclear % 87.1, Synovial Mononuclear % 12.9, Synovial Path Comment May follow 11/04/22 22:57: Vancomycin Trough 27.4 H 11/05/22 06:47: WBC 6.2, RBC 3.54 L, Hgb 8.7 L, Hct 29.7 L, MCV 83.9, MCH 24.6 L, MCHC 29.3 L, RDW Std Deviation 54.4 H, RDW Coeff of Ghassan 17.4 H, Plt Count 288, MPV 10.0, Immature Gran % (Auto) 0.200, Neut % (Auto) 64.7, Lymph % (Auto) 14.5 L, [place] % (Auto) 17.8 H, Eos % (Auto) 2.3, Baso % (Auto) 0.5, Absolute Neuts (auto) 4.0, Absolute Lymphs (auto) 0.90, Nucleated RBC % 0 Micro: Microbiology 11/04/22 18:30 Stool C. difficile GDH Antigen & Toxins - Final Toxigenic C. difficile Radiography Diagnostic Testing: Radiology Impression Joint Aspiration/Injection 11/04/22 10:21 IMPRESSION: 1. Successful fluoroscopic guided right hip aspiration with removal of 10 cc of purulent fluid. Electronically Signed: Melvin Rankin MD at 14:02 EDT Reading Location ID and State: [address] [place] [address] , Service support , Physical Exam Narrative General -A&Ox3, NAD, appears stated age. Vital signs stable, afebrile. Respiratory -normal work of breathing, no intercostal retractions. CV -pulses regular, brisk capillary refill ?4 limbs. Abdomen-soft, nontender, nondistended. No guarding, rigidity, rebound tenderness. Musculoskeletal/neurologic -full range of motion nontender throughout bilateral upper extremities, left lower extremity with full sensation and strength in all dermatomes and myotomes. No midline cervical tenderness. Right lower extremity-pain with logroll right hip and pain with short arc range of motion referred to the right groin. No short arc range of motion pain with right knee. No knee effusion is noted. No erythema overlying the right hip. Sensation intact to light touch L3-S1 dermatomes. DF, PF, EHL 5/5. DP pulse 2+ brisk upper refill. Negative Homans' sign. Assessment & Plan Assessment/Plan (1) Septic arthritis of hip: QUALIFIERS: Septic arthritis organism: due to unspecified organism Laterality: right Qualified Code(s): M00.9 - Pyogenic arthritis, unspecified PLAN: Patient is status post right hip arthrocentesis performed by interventional radiology. Cell count reviewed. White blood cell cell count 25 98% neutrophils 87% PMNs Gram stain and cultures pending Findings consistent with acute right hip septic arthritis Recommending surgical intervention in the form of irrigation debridement right hip Continue antibiotics. Plan to proceed with surgery later today. Hold Eliquis. Plan to restart postoperative day #1. NPO. Maintenance IV fluids. Hemoglobin 8.7 today. We will transfuse 1 unit packed red blood cells today prior to surgery due to anticipated blood loss with surgery. I discussed the surgical procedure with the patient. I discussed its risks, benefits, alternatives. Risks include but are not limited to bleeding, infection, loss of life or limb, persistent infection, persistent pain, neurovascular injury, DVT or PE, risk of anesthesia, nonhealing wounds, need for additional surgery, avascular necrosis, persistent limp. Patient expressed understanding of these risks and wished proceed with surgery. Informed consent obtained.
[2022-11-05 07:57] LABS: Anion Gap 8 (5-15); BUN 15 mg/dL (7-18); BUN/Creat Ratio 10.4 RATIO (10-20); Calcium,Total 9.1 mg/dL (8.5-10.1); Chloride 107 mmol/L (98-107); Creatinine, Serum 1.44 mg/dL (0.70-1.30); EST Glomerular Filtration Rate 54 mL/min (>60); Est Glom Filt Rate - Afr Amer 65 mL/min (>60); Estimated Creatinine Clearance 66.83 ml/min; Glucose 96 mg/dL (74-106); Potassium 4.1 mmol/L (3.5-5.1); Sodium Level 138 mmol/L (136-145)
[2022-11-05 08:21] LABS: International Normalized Ratio 1.2; Prothrombin Time (Protime)PT. 15.3 SECONDS (11.7-14.9)
[2022-11-05 08:22] LABS: Partial Thromboplast Time 54.6 Seconds (24.1-36.2)
--- NOTE | 2022-11-05 08:50 | PCM.RX.CS ---
Consult Antibiotic Management Pharmacy has been consulted to manage selected antiobiotic: Vancomycin Type of Intervention Type of Consult: Follow-up Prior Doses of Antibiotics Prior Doses of Antibiotics Received/Current Regimen: 1500mg iv q8h Labs Labs: Sodium 138 mmol/L (136-145) 11/05/22 06:47 Potassium 4.1 mmol/L (3.5-5.1) 11/05/22 06:47 Chloride 107 mmol/L (98-107) 11/05/22 06:47 Carbon Dioxide 23.0 mmol/L (21.0-32.0) 11/05/22 06:47 Anion Gap 8 (5-15) 11/05/22 06:47 BUN 15 mg/dL (7-18) 11/05/22 06:47 Creatinine 1.44 mg/dL (0.70-1.30) H 11/05/22 06:47 Est GFR (MDRD) Af Amer 65 mL/min (>60) 11/05/22 06:47 Est GFR (MDRD) Non-Af 54 mL/min (>60) L 11/05/22 06:47 BUN/Creatinine Ratio 10.4 RATIO (10-20) 11/05/22 06:47 Glucose 96 mg/dL (74-106) 11/05/22 06:47 Vancomycin Trough 27.4 ug/mL (5.0-15.0) H 11/04/22 22:57 Random Vancomycin 18.0 ug/mL (0.0-15.0) H 11/05/22 06:47 Microbiology Microbiology: Microbiology 11/04/22 18:30 Stool C. difficile GDH Antigen & Toxins - Final Toxigenic C. difficile Dosing Weight Weight used for dosin.7 kg Estimated Creatinine Clearance Estimated Creatinine Clearance: 82ml/min Goal Trough Goal Trough: 15-20 mcg/mL Pharmacy Plan for Drug Dosing Pharmacy Plan for Drug Dosing: Random level this AM 18.0 (15hrs post dose) and in goal range of 15-20mcg/ml. CrCl calculated from adjusted body weight to be ~82ml/min. Suggest starting vancomycin now at a reduced dose of 1750mg iv q12h. New trough ordered for before 4th dose of new regimen. Pharmacy Service will continue to monitor and adjust dosing as required. Follow-Up Labs Follow-Up Labs: Trough: Vancomycin (8.18.23 @2130 before 2200 dose)
[2022-11-05] MEDS: Venlafaxine XR 150 MG Capsule PO (09:53)
[2022-11-05] MEDS: Potassium Chloride Oral Tablet 20 MEQ PO (09:53)
[2022-11-05] MEDS: Fenofibrate 48 MG Tablet PO (09:53)
[2022-11-05] MEDS: Lactated Ringers 1,000 ML 75 ML IV (10:31)
[2022-11-05] MEDS: Ascorbic Acid 500 MG Tablet 1000 MG PO (12:14)
[2022-11-05] MEDS: Ferrous Sulfate 325 MG Tablet PO (12:15)
[2022-11-05 13:01] LABS: Pathologist Comment Reviewed
--- NOTE | 2022-11-05 14:06 | PCM.PN.HOSP ---
Reason for Visit Reason for Visit: Diagnoses Other nonrheumatic aortic valve disorders (11/03/22) Pyogenic arthritis, unspecified (11/03/22) Pain in right hip (11/03/22) Diarrhea, unspecified (11/03/22) Subjective Subjective Patient seen at bedside this morning. Patient was laying back in bedside chair, conversing normally, in no acute distress. States that he tolerated the right hip drainage with IR yesterday. He denies any bleeding at the site. He was positive for C. difficile overnight and is now on contact cautions, however he reports no loose bowel movement this morning. He continues to have right hip pain but it is mildly improved this morning. Denies any fevers or chills. No other acute concerns. Objective Data Objective Data Vital Signs: Vital Signs Temp Pulse Resp BP Pulse Ox O2 Del Method O2 Flow Rate 98.8 F 73 16 133/49 H 99 Nasal Cannula 2 11/05/22 13:43 11/05/22 13:43 11/05/22 13:43 11/05/22 13:43 11/05/22 13:43 11/05/22 13:43 11/05/22 13:43 Oxygen Flow Rate (L/min) 2 Oxygen Delivery Method Nasal Cannula Weight: 131.7 kg Body Mass Index (BMI) 36.3 Intake & Output: Intake and Output for Last 24 Hours 11/03/22 11/04/22 11/05/22 23:59 23:59 23:59 Intake Total 100 / 100 2820.83 / 2820.83 1262.5 / 1262.5 Output Total 2049 / 2049 400 / 400 Balance 100 / 100 770.83 / 770.83 862.5 / 862.5 Lab / Micro Data Attestation: I reviewed the patient's lab results. 11/05/22 06:47 11/05/22 06:47 Labs: Laboratory Results - last 24 hr 11/04/22 13:20: Fluid Source Cancelled, Fluid Color Cancelled, Fluid Appearance Cancelled, Fluid WBC Cancelled, Fluid RBC Cancelled, Fluid Tot Cell Count Cancelled, Fld Polynuclear WBCs # Cancelled, Fld Polynuclear WBCs % Cancelled, Fluid Mononuclear WBCs Cancelled, Fld Mononuclear WBCs % Cancelled, Fluid Neutrophils Cancelled, Fluid Lymphocytes Cancelled, Fluid Monocytes Cancelled, Fluid Plasma Cells Cancelled, Fluid Macrophages Cancelled, Fld Mesothelial Cells Cancelled, Fluid Other Cells Cancelled, Fl Pathologist Comment Cancelled, Fluid Comment 2 Cancelled, Synovial Source RIGHT HIP, Synovial Color White, Synovial Appearance Cloudy, Synovial WBC 25.2000 H, Synovial RBC 86 H, Synovial Tot Cell Ct 25.4000 H, Synov Polynuclear WBCs 21.379, Synov Mononuclear WBCs 3.183, Synovial Neutrophils 98 H, Synovial Lymphocytes 1, Synovial Monocytes 1, Synovial Polynuclear % 87.1, Synovial Mononuclear % 12.9, Synovial Path Comment Reviewed 11/04/22 22:57: Vancomycin Trough 27.4 H 11/05/22 06:47: WBC 6.2, RBC 3.54 L, Hgb 8.7 L, Hct 29.7 L, MCV 83.9, MCH 24.6 L, MCHC 29.3 L, RDW Std Deviation 54.4 H, RDW Coeff of Ghassan 17.4 H, Plt Count 288, MPV 10.0, Immature Gran % (Auto) 0.200, Neut % (Auto) 64.7, Lymph % (Auto) 14.5 L, [place] % (Auto) 17.8 H, Eos % (Auto) 2.3, Baso % (Auto) 0.5, Absolute Neuts (auto) 4.0, Absolute Lymphs (auto) 0.90, Nucleated RBC % 0, PT 15.3 H, INR 1.2, APTT 54.6 H, Sodium 138, Potassium 4.1, Chloride 107, Carbon Dioxide 23.0, Anion Gap 8, BUN 15, Creatinine 1.44 H, Estim Creat Clear Calc 66.83, Est GFR (MDRD) Af Amer 65, Est GFR (MDRD) Non-Af 54 L, BUN/Creatinine Ratio 10.4, Glucose 96, Calcium 9.1, Random Vancomycin 18.0 H, Blood Type B POSITIVE, Antibody Screen NEGATIVE, Crossmatch See Detail Micro: Microbiology 11/04/22 18:30 Stool C. difficile GDH Antigen & Toxins - Final Toxigenic C. difficile Radiography Diagnostic Testing: Radiology Impression Chest X-Ray 11/05/22 05:55 IMPRESSION: Borderline cardiomegaly. The lungs are clear. Electronically Signed: Melvin Rankin MD at 9:04 EDT , Physical Exam Const alert and oriented x3 Constitutional Narrative: Pleasant male, obese, sitting in bedside chair, conversing normally, appears to be in less discomfort than yesterday at rest. General Appearance: cooperative HEENT normocephalic, head/scalp atraumatic, hearing grossly normal bilaterally, nasal mucous membranes and turbinates normal and moist oral mucous membranes Eyes PERRL, EOMs intact bilaterally and conjunctivae normal Neck full ROM, no lymphadenopathy and supple Lymph Lymphatic: no lymphadenopathy noted Chest inspection of chest normal Resp normal respiratory effort, normal air movement, no use of accessory muscles and clear to auscultation bilaterally Cardio regular rate, regular rhythm, no murmurs and peripheral pulses 2+ throughout GI normal to inspection, nondistended, normoactive bowel sounds, soft to palpation, non-tender and non-distended Back/Spine normal ROM Extremity Extremity Narrative: No acute concern for right hip on external evaluation. Did not palpate or attempted movement this morning, as patient will be having surgery this afternoon. Skin no rashes or lesions noted Psych mental status grossly normal Assessment & Plan Assessment/Plan (1) Septic arthritis of hip: QUALIFIERS: Septic arthritis organism: due to unspecified organism Laterality: right Qualified Code(s): M00.9 - Pyogenic arthritis, unspecified PLAN: Plan Patient is a 57-year-old male with history significant for recent infective endocarditis (completed 12-week course of antibiotics in 09/2022), DVT on Eliquis, CVA and CATHY who presented to [facility] ED on 11/03 with 5-day history of worsening right hip pain. 1. Septic arthritis of right hip -Status post joint aspiration by radiology on 11/04 and 10 cc of purulent fluid was removed. Cultures pending. Orthopedics following, planning for washout in the OR today. Continue IV vancomycin and Zosyn for now, will narrow as able. We will likely plan for infectious disease consult when cultures have resulted. Continue opiates as needed for pain control. 2. C. difficile infection -Diagnosed on 11/04. CT abdomen pelvis on admission showed findings concerning for inflammatory versus infectious colitis. Patient interestingly does not report significant diarrhea, and has had only 1 bowel movement since admission. We will plan to complete 10-day course of p.o. vancomycin, stop date 11/14. Continue maintenance IV fluids through his procedure today, and can consider afterwards as needed. 3. History of DVT on Eliquis ? We will discuss timing of restarting of Eliquis with orthopedics. 4. Hypertension ? Holding home losartan today given his procedure as noted above. Can continue home amlodipine. Will restart home losartan as needed. DVT prophylaxis: SCDs CODE STATUS: Full code, verified Expected disposition: TBD Total clinical time spent by myself addressing the patient's medical issues, reviewing all the data, and collaborating with patient's care team: 35 minutes. Charges/Coding Visit Charges Inpatient E&M: 01751 Subs Hosp L2
[2022-11-05] MEDS: Lactated Ringers 1,000 ML 100 ML IV (15:31)
--- NOTE | 2022-11-05 18:32 | OP.PCM_ITS ---
Report of Operation Date of Procedure: 11/05/22 Description of Surgical Findings:: Preoperative diagnosis: Right hip septic arthritis Postoperative diagnosis: Right hip septic arthritis Procedure: Irrigation and debridement right hip Surgeon: Nathan Hemphill DO [employer] Operator: Charity Landis PA-C Anesthesia: General Anesthesiologist: Franc Thompson MD Complications: None apparent Specimen: Right hip joint fluid cultures Packing/drains: None IV fluids: 1500 cc crystalloid Urine output: None recorded Estimated blood loss: 300 cc Intraoperative findings: Seropurulent fluid intra-articular right hip Preoperative indications: This is a 57-year-old male seen in consultation for right hip pain of approximately 1 week duration. He is being treated for infective endocarditis on oral Bactrim at the [facility]. He developed right hip pain after repositioning during a follow-up echocardiogram. After 4 to 5 days of pain, he sought emergency medical treatment. Inability to bear weight and short arc range of motion of the right hip was concerning for septic arthritis. IV vancomycin and Zosyn was started. An arthrocentesis was performed yesterday by interventional radiology. Synovial fluid analysis was concerning for a septic hip. Cultures are pending. Patient is on Eliquis for history of DVT, last dose was 11/03/2022. I recommended delaying I&D until today to mitigate intraoperative bleeding risk. I recommended I&D of the right hip. I discussed the procedure as well as its risks, benefits, alternatives. Risks include but are not limited to bleeding, infection, loss of life or limb, persistent infection, persistent pain, neurovascular injury, DVT or PE, risk of anesthesia, nonhealing wounds, need for additional surgery, avascular necrosis, persistent limp. Patient expressed understanding of these risks and wished proceed with surgery. Informed consent obtained. Description procedure: Patient was identified in preoperative holding area by name, medical record number, date of . The operative extremity was marked. All questions answered to the patient's satisfaction. At time of his procedure, patient was brought to the operative suite positioned supine a standard operating table. General anesthesia was induced and LMA placed. All bony prominences were well-padded. Patient was not due for scheduled antibiotics during the procedure. The right lower extremity was prepped and draped in normal, sterile orthopedic fashion. We performed timeout with all parties in attendance in agreement the side, site, operation be performed. No concerns were voiced elected proceed with surgery. I marked a standard anterior approach to the right hip 2 fingerbreadths inferior and lateral to the ASIS approximately 6 cm in length. Skin was sharply incised longitudinally with a 10 blade scalpel. Blunt dissection was carried out and subcutaneous field down to the level of the sheath of the tensor fascia justine. Fascia was opened in line with the incision. Tensor fascia justine was retracted laterally. Crossing vessels were maintained to mitigate risk of AVN. During deeper dissection a branch of the lateral femoral circumflex artery was encountered. Hemostasis was achieved with Bovie cautery. The floor of the TFL sheath was then opened in line with the incision. Hip capsule was identified. I performed an anterior capsulectomy. Seropurulent fluid was encountered and cultures obtained. Synovitis was debrided sharply with a 10 blade scalpel. I then copiously irrigated the right hip joint with 6 L of normal saline solution. Hemostasis was excellent at this point. I then closed the superficial fascia of the ATFL with a 0 PDS suture. Dermis was reapproximated buried 2-0 PDS suture and skin was reapproximated with interrupted horizontal mattress 2-0 nylon suture. A sterile compression dressing was applied. Patient tolerated procedure well without apparent complication. He was safely extubated in the operative suite and transferred to his hospital bed and subsequently to PACU in stable condition. Need for skilled assistant professor surgical technology: Charity Landis PA-C was critical to the outcome of the case. During the course of the procedure the physician assistant professor surgical technology played a vital role. Her intimate knowledge of my steps in the procedure aided in safe and expedient completion of the procedure. The PA played a vital role in positioning particularly in obtaining the appropriate positioning. The PA was also vital in the retraction of soft tissues during the exposure and protecting vital structures. Given patient's body habitus, a skilled assistant professor surgical technology was necessary to the procedure. She also played a vital role in closure and dressing application with my direct supervision. Postoperative plan: Continue IV antibiotics pending cultures. Infectious disease consult to be placed once cultures are finalized per recommendations of primary team. Restart Eliquis postoperative day #1 Weightbearing as tolerated right hip with a walker PT/OT Plan follow-up 2 weeks for suture removal
[2022-11-05] MEDS: Doxazosin 1 MG Tablet PO (21:21)
[2022-11-05] MEDS: traZODone 100 MG Tablet PO (21:21)
[2022-11-05] MEDS: 0.9% Saline Lock 10 ML Syringe IV (21:22)
[2022-11-06 00:16] VITALS: BP 114/46; PULSE 80; RESP 18; TEMP 37; O2SAT 96
[2022-11-06] MEDS: Vancomycin 125 MG/5 ML Susp PO.SYRINGE PO ×5 (00:17→20:42)
[2022-11-06] MEDS: Lactated Ringers 1,000 ML 100 ML IV ×2 (02:07→15:06)
[2022-11-06 02:12] VITALS: BP 123/51; PULSE 88; RESP 18; TEMP 37; O2SAT 97
[2022-11-06 04:17] VITALS: BP 135/58; PULSE 85; RESP 18; TEMP 37; O2SAT 97
[2022-11-06] MEDS: HYDROmorphone 0.5 MG/0.5 ML SYRINGE 1 MG IV (04:23)
[2022-11-06] MEDS: Baclofen 10 MG Tablet 5 MG PO ×3 (05:22→20:40)
--- NOTE | 2022-11-06 07:33 | PN.ORTHO_ITS ---
Subjective Subjective Patient seen and examined. Reports burning in his right hip. He denies any other new symptoms. Has not been out of bed. Denies fevers, chills, nausea vomiting, chest pain or shortness of breath. Objective Data Objective Data Vital Signs: Vital Signs Temp Pulse Resp BP Pulse Ox O2 Del Method O2 Flow Rate 98.6 F 85 18 135/58 H 97 Nasal Cannula 2 11/06/22 04:11/06/22 04:11/06/22 04:11/06/22 04:11/06/22 04:11/06/22 04:11/06/22 04:17 Oxygen Flow Rate (L/min) 2 Oxygen Delivery Method Nasal Cannula Weight: 290 lb 5.581 oz Body Mass Index (BMI) 36.3 Intake & Output: Intake and Output for Last 24 Hours 11/04/22 11/05/22 11/06/22 23:59 23:59 23:59 Intake Total 2820.83 / 2820.83 3323.58 / 3323.58 351.42 / 351.42 Output Total 2049 / 2049 1400 / 1400 300 / 300 Balance 770.83 / 770.83 1923.58 / 1923.58 51.42 / 51.42 Lab / Micro Data 11/05/22 06:47 11/05/22 06:47 Labs: Laboratory Results - last 24 hr 11/04/22 13:20: Synovial Path Comment Reviewed 11/05/22 06:47: PT 15.3 H, INR 1.2, APTT 54.6 H, Sodium 138, Potassium 4.1, Ch loride 107, Carbon Dioxide 23.0, Anion Gap 8, BUN 15, Creatinine 1.44 H, Estim Creat Clear Calc 66.83, Est GFR (MDRD) Af Amer 65, Est GFR (MDRD) Non-Af 54 L, BUN/Creatinine Ratio 10.4, Glucose 96, Calcium 9.1, Random Vancomycin 18.0 H, Blood Type B POSITIVE, Antibody Screen NEGATIVE, Crossmatch See Detail Micro: Microbiology 11/04/22 13:20 Fluid - Synovial (joint) Gram Stain - Final 11/04/22 18:30 Stool C. difficile GDH Antigen & Toxins - Final Toxigenic C. difficile Radiography Diagnostic Testing: Radiology Impression Chest X-Ray 08/17/23 05:55 IMPRESSION: Borderline cardiomegaly. The lungs are clear. Electronically Signed: Melvin Rankin MD at 9:04 EDT , Physical Exam Narrative General - A&Ox3, NAD. VSS/AF Right lower extremity -incisional dressing C/D/I. SILT Sural, Saphenous, SPN, DPN, Tibial N. distributions. DP, PT 2+. BCR. DF, PF, EHL 5/5. No calf TTP. Assessment & Plan Assessment/Plan (1) Septic arthritis of hip: QUALIFIERS: Septic arthritis organism: due to unspecified organism Laterality: right Qualified Code(s): M00.9 - Pyogenic arthritis, unspecified PLAN: POD#1 s/p right hip irrigation and debridement - Pain control - Medicine following for medical management - PT/OT -weightbearing as tolerated right lower extremity with a walker - DVT PPX -okay to restart home Eliquis if hemoglobin stable this morning. Morning labs pending. -Continue to follow arthrocentesis and intraoperative cultures. Continue antibiotics per primary. Agree with infectious disease consultation. -Will follow
[2022-11-06] MEDS: Gabapentin 100 MG Capsule 200 MG PO ×3 (08:32→17:48)
[2022-11-06] MEDS: Potassium Chloride Oral Tablet 20 MEQ PO (08:32)
[2022-11-06] MEDS: amLODIPine 2.5 MG Tablet PO (08:33)
[2022-11-06] MEDS: Pantoprazole Sodium 40 MG Tablet PO (08:33)
[2022-11-06] MEDS: Fenofibrate 48 MG Tablet PO (08:33)
[2022-11-06] MEDS: oxyCODONE 5 MG Tablet 10 MG PO ×3 (08:33→20:44)
[2022-11-06] MEDS: Venlafaxine XR 150 MG Capsule PO (08:33)
[2022-11-06 09:45] LABS: Absolute Neutrophil Count 4.5 X10^3/uL (2.0-7.7); Basophil# 0.02 X10^3/uL; Basophil% 0.3 % (0-1); Eosinophil# 0.17 X10^3/uL; Eosinophils% 2.6 % (0-5); Hematocrit 29.9 % (40-54); Hemoglobin 8.6 g/dL (13.0-16.5); Lymphocyte % 9.1 % (19-41); Mean Corp Hgb Conc 28.8 g/dL (32-36); Mean Corpuscular Hgb 24.9 pg (27.0-32.0); Mean Corpuscular Volume 86.7 fL (80-94); Mean Platelet Vol. 10.2 fl (6.2-12.0); Monocyte# 1.26 X10^3/uL; Monocyte% 19.2 % (0-10); NRBC Flagged by Analyzer 0 % (0-5); Neutrophil # 4.49 X10^3/uL (2.7-7.7); Neutrophil % 68.5 % (47-70); POSITIVE DIFFERENTIAL YES; Platelet Count 274 K/mm3 (150-450); RBC Distribution Width CV 17.3 % (11.6-14.6); RBC Distribution Width SD 55.2 fl (35.1-43.9); Red Blood Count 3.45 M/mm3 (4.6-6.2); White Blood Count 6.6 K/mm3 (4.4-11.0)
[2022-11-06 09:47] LABS: Differential Indicated SCAN CRITERIA MET
[2022-11-06 10:14] LABS: Anion Gap 3 (5-15); BUN 16 mg/dL (7-18); BUN/Creat Ratio 7.7 RATIO (10-20); Calcium,Total 9.1 mg/dL (8.5-10.1); Chloride 108 mmol/L (98-107); Creatinine, Serum 2.08 mg/dL (0.70-1.30); EST Glomerular Filtration Rate 35 mL/min (>60); Est Glom Filt Rate - Afr Amer 42 mL/min (>60); Estimated Creatinine Clearance 46.27 ml/min; Glucose 84 mg/dL (74-106); Potassium 4.3 mmol/L (3.5-5.1); Sodium Level 138 mmol/L (136-145)
[2022-11-06 10:22] LABS: Differential Comment SCANNED
[2022-11-06] MEDS: Acetaminophen 500 MG Tablet 1000 MG PO ×2 (10:41→20:40)
[2022-11-06] MEDS: HYDROmorphone 1 MG/ML Syringe IV (10:43)
--- NOTE | 2022-11-06 12:01 | CON.PCM.ID_ITS ---
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 Reviewed [facility] and [facility] records, saw Dr. Morgan with ID 3 weeks ago, plan was for bactrim for one year. Now with new R hip septic arthritis. Aspiration 11/04 and OR 11/[address] Hemphill so far with negative gram stain and culture. Bcx x2 11/03 remain neg. On vanc/zosyn. Whipple's can very rarely cause a septic arthritis, so spoke with path lab and will order send out test for pcr of fluid sample. Will change abx to vanc/ceftriaxone 2gm q12h to cover for normal septic arthritis skin eduardo as well as potential relapse of Whipple. cdiff diarrhea - on po vanc. Will follow, thank you HPI Consult Data Date of Consult: 11/06/22 HPI Narrative Reason for Consultation: septic arthritis HPI Narrative: PHILIP DU, is a 57 M with h/o RA, htn, PAD, presented to [facility] 07/11/22 with sudden onset L sided weakness and slurred speech. Sent to [facility], had thrombectomy done. TTE showed PFO. Had fever, and DEYVI showed 1.2cm aortic valve veg. ID consulted, seen by Dr. Morgan. Discharged to rehab on dapto/unasyn with planned stop date 08/25/22 for total 6 weeks abx. 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 While at rehab in [place], transferred back to [facility] due to new lumbar osteo and NYDIA. DEYVI done, lumbar biopsy done, dapto/unasyn extended until 10/08. Since then has followed up with Dr. Morgan, abx changed to po bactrim with plan for one year of therapy. Now admitted 11/03 with 5 days of progressive, excruciating R hip pain and associated diarrhea. No fever, no abd pain. IR aspiration done of R hip 11/04, then taken to OR 11/[address] Hemphill for I&D of R hip septic arthritis. On vanc/zosyn and po vanc. Diarrhea is better, pain in hip is controlled. Full ROS performed and neg except as noted above. [facility] Medical History Abnormal LFTs Aortic valve regurgitation Cerebral edema Chronic anticoagulation Chronic back pain Chronic lower back pain Class 3 obesity Colon polyp COPD (chronic obstructive pulmonary disease) DVT of lower limb, acute Dysarthria Elevated TSH Encephalopathy acute Family history of heart disease Former smoker GERD (gastroesophageal reflux disease) Gout HCAP (healthcare-associated pneumonia) Hearing loss, left Heme positive stool Hypertension Hyperuricemia Hypoalbuminemia Internal and external bleeding hemorrhoids Iron deficiency Left atrial enlargement Leukocytosis Normocytic hypochromic anemia Obesity Peripheral vascular disease PFO (patent foramen ovale) Physical debility Polyclonal gammopathy Prediabetes Presence of arterial stent QT prolongation Rheumatoid arthritis SAH (subarachnoid hemorrhage) Septic shock Stroke/cerebrovascular accident Superficial thrombophlebitis Home Medications polyethylene glycol 3350 17 g PO/SL QHS CONSTIPATION 07/23/22 [History Last Taken 07/22/22 08:10] aluminum-mag hydroxide-simethicone 400 mg-400 mg-40 mg/5 mL oral susp (Mag-Al Plus Extra Strength) 15 ml PO Q6H PRN PRN HEARTBURN OR INDIGESTION #1 mL 09/02/22 [Rx Last Taken Unknown] acetaminophen 325 mg tablet 650 mg PO Q6H PRN pain/fever 09/15/22 [History Last Taken Unknown] ascorbic acid (vitamin C) 500 mg tablet 1,000 mg PO 1200 supplement 09/15/22 [History Last Taken Unknown] apixaban 5 mg tablet (Eliquis) 5 mg PO BID Check with primary doctor #60 tabs 10/09/22 [Rx Last Taken Unknown] baclofen 10 mg tablet 5 mg (1/2 x 10 mg) PO TID #90 tabs 10/09/22 [Rx Last Taken Unknown] clopidogrel 75 mg tablet (Plavix) 75 mg PO DAILY Check with primary doctor #30 tabs 10/09/22 [Rx Last Taken Unknown] doxazosin 1 mg tablet 1 mg PO QHS #30 tabs 10/09/22 [Rx Last Taken Unknown] fenofibrate nanocrystallized 48 mg tablet 48 mg PO DAILYCM Check with primary doctor #30 tabs 10/09/22 [Rx Last Taken Unknown] ferrous sulfate 325 mg (65 mg iron) tablet (FeroSul) 325 mg PO DAILY@1200 supplement #30 tabs 10/09/22 [Rx Last Taken Unknown] gabapentin 100 mg capsule 200 mg (2 x 100 mg) PO TIDCM #90 caps 10/09/22 [Rx Last Taken Unknown] losartan 100 mg tablet 100 mg PO DAILY #30 tabs 10/09/22 [Rx Last Taken Unknown] oxycodone 10 mg tablet 10 mg PO Q6H PRN pain 7 days #28 tabs 10/09/22 [Rx Last Taken Unknown] pantoprazole 40 mg tablet,delayed release 40 mg PO DAILY Check with primary doctor #30 tabs 10/09/22 [Rx Last Taken Unknown] potassium chloride 20 mEq tablet,extended release(part/cryst) (Klor-Con M) 20 meq PO DAILYCM #30 tabs 10/09/22 [Rx Last Taken Unknown] sennosides 8.6 mg-docusate sodium 50 mg tablet (Stool Softener-Stimulant Laxative) 2 tab PO BID #120 tabs 10/09/22 [Rx Last Taken Unknown] trazodone 100 mg tablet 100 mg PO QHS #30 tabs 10/09/22 [Rx Last Taken Unknown] venlafaxine 150 mg capsule,extended release 24 hr 150 mg PO DAILY #30 caps 10/09/22 [Rx Last Taken Unknown] oxycodone 15 mg tablet,crush resistant,extended release 12 hr (OxyContin) mg PO 11/03/22 [History Last Taken Unknown] sulfamethoxazole 800 mg-trimethoprim 160 mg tablet tab 11/03/22 [History Last Taken Unknown] amlodipine 10 mg tablet 2.5 mg PO DAILY HTN 11/04/22 [History Last Taken Unknown] Allergy/AdvReac Type Severity Reaction Status Date / Time cephalexin Allergy Shortness Verified 11/03/22 14:41 of breath Family History Other Heart disease Surgical History H/O hand surgery History of bowel resection Hx of total knee arthroplasty 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 S/P PICC central line placement Social History household members: spouse Smoking Status: Former smoker alcohol intake: current alcohol intake frequency: holidays/special occasions only substance use type: does not use caffeine: No Physical Exam Const alert, oriented x3 and no apparent distress General Appearance: cooperative HEENT normocephalic and head/scalp atraumatic Eyes PERRL and EOMs intact bilaterally Neck supple and No nodes Resp normal air movement and clear to auscultation bilaterally Cardio regular rate and regular rhythm GI soft to palpation, non-tender and non-distended Skin no rashes or lesions noted Neuro CN's II-XII intact bilaterally Lab / Micro Data Attestation: I reviewed the patient's lab results. 11/06/22 09:13 11/06/22 09:13 Labs: Laboratory Results - last 24 hr 11/04/22 13:20: Synovial Path Comment Reviewed 11/05/22 06:47: Crossmatch See Detail 11/06/22 09:13: WBC 6.6, RBC 3.45 L, Hgb 8.6 L, Hct 29.9 L, MCV 86.7, MCH 24.9 L , MCHC 28.8 L, RDW Std Deviation 55.2 H, RDW Coeff of Ghassan 17.3 H, Plt Count 274, MPV 10.2, Immature Gran % (Auto) 0.300, Neut % (Auto) 68.5, Lymph % (Auto) 9.1 L , [place] % (Auto) 19.2 H, Eos % (Auto) 2.6, Baso % (Auto) 0.3, Absolute Neuts (auto) 4.5, Absolute Lymphs (auto) 0.60 L, Nucleated RBC % 0, Differential Comment SCANNED, Sodium 138, Potassium 4.3, Chloride 108 H, Carbon Dioxide 27.0, Anion Gap 3 L, BUN 16, Creatinine 2.08 H, Estim Creat Clear Calc 46.27, Est GFR (MDRD) Af Amer 42 L, Est GFR (MDRD) Non-Af 35 L, BUN/Creatinine Ratio 7.7 L, Glucose 84, Calcium 9.1 Micro: Microbiology 11/03/22 18:17 Blood Culture (Wb) - Anticubital Right Blood Culture - Preliminary No growth in 48 hours. 08/15/23 18:11 Blood Culture (Wb) - Anticubital Left Blood Culture - Preliminary No growth in 48 hours. 11/04/22 13:20 Fluid - Synovial (joint) Gram Stain - Final
[2022-11-06] MEDS: Ascorbic Acid 500 MG Tablet 1000 MG PO (13:09)
[2022-11-06] MEDS: Ferrous Sulfate 325 MG Tablet PO (13:09)
--- NOTE | 2022-11-06 14:01 | CASEMGMT ---
Social Work Referral for Inpatient Rehab Unit This social research assistant met with patient in room. Introduced self and social research assistant role. Patient agreeable to speak with this social research assistant. This social research assistant broached conversation of discharge planning and patient request for referral to the Inpatient Rehab Unit. Patient confirms desire to discharge to the Inpatient Rehab Unit, if needed. Patient reports to have been on the Rehab Unit in the past and it was a good experience. Telephone call to Inpatient Rehab Unit, [facility]. Referral made. [facility] reports to be able to accept patient pending pre-cert. This social research assistant asked for [facility] to wait to start pre-cert as patient is not medically cleared and will be here through the weekend. Social Work to touch back with [facility] on Wednesday. Proposed discharge date: TBD PLAN: Inpatient Rehab Unit, pending pre-cert. Debbie HARO, LINDYS
[2022-11-06 15:02] VITALS: BP 112/47; PULSE 89; RESP 16; TEMP 37.4; O2SAT 94
--- NOTE | 2022-11-06 16:06 | PN.HOSP_ITS ---
Reason for Visit Reason for Visit: Diagnoses Other nonrheumatic aortic valve disorders (11/03/22) Pyogenic arthritis, unspecified (11/03/22) Pain in right hip (11/03/22) Diarrhea, unspecified (11/03/22) Subjective Subjective Patient seen at bedside this morning, present. Patient laying in bed and appears mildly uncomfortable. He is conversing normally. His states that he has been in very significant pain this morning. He tolerated the procedure well yesterday, but has been quite uncomfortable since then. Patient otherwise denies any fevers or chills. He has not tried to get up and move around to this point. Therapy has not been in to see him yet. No other acute concerns morning. Objective Data Objective Data Vital Signs: Vital Signs Temp Pulse Resp BP Pulse Ox O2 Del Method O2 Flow Rate 99.4 F H 89 16 112/47 L 94 Room Air 2 11/06/22 15:02 11/06/22 15:02 11/06/22 15:02 11/06/22 15:02 11/06/22 15:02 11/06/22 15:02 11/06/22 07:30 Oxygen Flow Rate (L/min) 2 Oxygen Delivery Method Room Air Weight: 131.7 kg Body Mass Index (BMI) 36.3 Intake & Output: Intake and Output for Last 24 Hours 11/04/22 11/05/22 11/06/22 23:59 23:59 23:59 Intake Total 2820.83 / 2820.83 3323.58 / 3323.58 1936.42 / 1936.42 Output Total 2049 / 2049 1400 / 1400 900 / 900 Balance 770.83 / 770.83 1923.58 / 1923.58 1036.42 / 1036.42 Lab / Micro Data Attestation: I reviewed the patient's lab results. 11/06/22 09:13 11/06/22 09:13 Labs: Laboratory Results - last 24 hr 11/04/22 13:20: Miscellaneous Cytology SEE PATHOLOGY REPORT 11/06/22 09:13: WBC 6.6, RBC 3.45 L, Hgb 8.6 L, Hct 29.9 L, MCV 86.7, MCH 24.9 L , MCHC 28.8 L, RDW Std Deviation 55.2 H, RDW Coeff of Ghassan 17.3 H, Plt Count 274, MPV 10.2, Immature Gran % (Auto) 0.300, Neut % (Auto) 68.5, Lymph % (Auto) 9.1 L , Bowie % (Auto) 19.2 H, Eos % (Auto) 2.6, Baso % (Auto) 0.3, Absolute Neuts (auto) 4.5, Absolute Lymphs (auto) 0.60 L, Nucleated RBC % 0, Differential Comment SCANNED, Sodium 138, Potassium 4.3, Chloride 108 H, Carbon Dioxide 27.0, Anion Gap 3 L, BUN 16, Creatinine 2.08 H, Estim Creat Clear Calc 46.27, Est GFR (MDRD) Af Amer 42 L, Est GFR (MDRD) Non-Af 35 L, BUN/Creatinine Ratio 7.7 L, Glucose 84, Calcium 9.1 Micro: Microbiology 11/05/22 18:00 Incision/Surgical Site Gram Stain - Final 11/05/22 18:00 Incision/Surgical Site Wound Culture - Preliminary No growth-Final to follow 11/03/22 18:17 Blood Culture (Wb) - Anticubital Right Blood Culture - Preliminary No growth in 48 hours. 11/03/22 18:11 Blood Culture (Wb) - Anticubital Left Blood Culture - Preliminary No growth in 48 hours. 11/04/22 13:20 Fluid - Synovial (joint) Gram Stain - Final 11/04/22 18:30 Stool C. difficile GDH Antigen & Toxins - Final Toxigenic C. difficile Physical Exam Const alert and oriented x3 Constitutional Narrative: Pleasant male, obese, laying in bed, conversing normally, appears to be in mild distress due to pain. General Appearance: cooperative HEENT normocephalic, head/scalp atraumatic, hearing grossly normal bilaterally, nasal mucous membranes and turbinates normal and moist oral mucous membranes Eyes PERRL, EOMs intact bilaterally and conjunctivae normal Neck full ROM, no lymphadenopathy and supple Lymph Lymphatic: no lymphadenopathy noted Chest inspection of chest normal Resp normal respiratory effort, normal air movement, no use of accessory muscles and clear to auscultation bilaterally Cardio regular rate, regular rhythm, no murmurs and peripheral pulses 2+ throughout GI normal to inspection, nondistended, normoactive bowel sounds, soft to palpation, non-tender and non-distended Back/Spine normal ROM Extremity normal to inspection Skin no rashes or lesions noted Psych mental status grossly normal Assessment & Plan Assessment/Plan (1) Septic arthritis of hip: QUALIFIERS: Septic arthritis organism: due to unspecified organism Laterality: right Qualified Code(s): M00.9 - Pyogenic arthritis, unspecified PLAN: Plan Patient is a 57-year-old male with history significant for recent infective endocarditis (completed 12-week course of antibiotics in 09/2022), DVT on El iquis, CVA and CATHY who presented to [facility] ED on 11/03 with 5-day history of worsening right hip pain. 1. Septic arthritis of right hip Status post joint aspiration by radiology on 11/04 and 10 cc of purulent fluid was removed. Status post washout by orthopedics in the OR on 11/05. Patient tolerated both procedures well. Cultures currently pending. -Infectious disease following, appreciate assistance. Continue vancomycin and ceftriaxone per ID recommendations. For pain control, continue scheduled Tylenol and naproxen, oxycodone 10 mg every 4 as needed and IV Dilaudid 1 to 2 mg every 3 as needed. PT/OT/case management following. 2. C. difficile infection Diagnosed on 11/04. CT abdomen pelvis on admission showed findings concerning for inflammatory versus infectious colitis. -Complete 10-day course of p.o. vancomycin, stop date 11/14. Continue maintenance IV fluids for now. 3. History of DVT on Eliquis ? Post operative hemoglobin stable on 11/06. Okay to restart home Eliquis. 4. Hypertension ? Continue home amlodipine. Losartan held for procedure on 11/05 but pressures remain borderline, will continue to hold for now. Restart as needed. DVT prophylaxis: Eliquis CODE STATUS: Full code, verified Expected disposition: TBD Total clinical time spent by myself addressing the patient's medical issues, reviewing all the data, and collaborating with patient's care team: 35 minutes. Charges/Coding Visit Charges Inpatient E&M: 42827 Subs Hosp L2
[2022-11-06] MEDS: Naproxen 500 MG Tablet PO (17:47)
[2022-11-06 19:59] VITALS: O2SAT 97
[2022-11-06 20:00] VITALS: BP 114/47; PULSE 97; RESP 16; TEMP 37.1; O2SAT 95
[2022-11-06] MEDS: Doxazosin 1 MG Tablet PO (20:40)
[2022-11-06] MEDS: traZODone 100 MG Tablet PO (20:40)
[2022-11-06] MEDS: APIXABAN 5 MG TABLET PO (20:41)
[2022-11-07] MEDS: Lactated Ringers 1,000 ML 100 ML IV ×3 (01:01→21:12)
[2022-11-07 02:00] VITALS: BP 121/44; PULSE 77; RESP 16; TEMP 36.9; O2SAT 94
[2022-11-07 03:00] VITALS: BP 121/44; PULSE 77; RESP 16; TEMP 36.9; O2SAT 94
[2022-11-07] MEDS: Acetaminophen 500 MG Tablet 1000 MG PO ×3 (05:40→21:07)
[2022-11-07] MEDS: Baclofen 10 MG Tablet 5 MG PO ×3 (05:40→21:08)
[2022-11-07] MEDS: Vancomycin 125 MG/5 ML Susp PO.SYRINGE PO ×4 (05:41→23:58)
[2022-11-07 08:00] VITALS: BP 118/70; PULSE 75; RESP 18; TEMP 36.9; O2SAT 95
[2022-11-07] MEDS: oxyCODONE 5 MG Tablet 10 MG PO (09:13)
[2022-11-07] MEDS: Potassium Chloride Oral Tablet 20 MEQ PO (09:15)
[2022-11-07] MEDS: Gabapentin 100 MG Capsule 200 MG PO ×3 (09:16→17:14)
[2022-11-07] MEDS: APIXABAN 5 MG TABLET PO ×2 (09:16→21:07)
--- NOTE | 2022-11-07 09:27 | PCM.PN.HOSP ---
Reason for Visit Reason for Visit: Diagnoses Other nonrheumatic aortic valve disorders (11/03/22) Pyogenic arthritis, unspecified (11/03/22) Pain in right hip (11/03/22) Diarrhea, unspecified (11/03/22) Objective Data Objective Data Vital Signs: Vital Signs Temp Pulse Resp BP Pulse Ox O2 Del Method O2 Flow Rate 36.9 C 77 16 121/44 H 94 Room Air 2 11/07/22 03:00 11/07/22 03:00 11/07/22 03:00 11/07/22 03:00 11/07/22 03:00 11/07/22 03:00 11/06/22 19:59 Oxygen Flow Rate (L/min) 2 Oxygen Delivery Method Room Air Weight: 131.7 kg Body Mass Index (BMI) 36.3 Intake & Output: Intake and Output for Last 24 Hours 11/05/22 11/06/22 11/07/22 23:59 23:59 23:59 Intake Total 3323.58 / 3323.58 2571.42 / 2571.42 991.67 / 991.67 Output Total 1400 / 1400 900 / 900 200 / 200 Balance 1923.58 / 1923.58 1671.42 / 1671.42 791.67 / 791.67 Lab / Micro Data 11/06/22 09:13 11/07/22 10:08 Labs: Laboratory Results - last 24 hr 11/04/22 13:20: Miscellaneous Cytology SEE PATHOLOGY REPORT 11/06/22 09:13: WBC 6.6, RBC 3.45 L, Hgb 8.6 L, Hct 29.9 L, MCV 86.7, MCH 24.9 L, MCHC 28.8 L, RDW Std Deviation 55.2 H, RDW Coeff of Ghassan 17.3 H, Plt Count 274, MPV 10.2, Immature Gran % (Auto) 0.300, Neut % (Auto) 68.5, Lymph % (Auto) 9.1 L, [place] % (Auto) 19.2 H, Eos % (Auto) 2.6, Baso % (Auto) 0.3, Absolute Neuts (auto) 4.5, Absolute Lymphs (auto) 0.60 L, Nucleated RBC % 0, Differential Comment SCANNED, Sodium 138, Potassium 4.3, Chloride 108 H, Carbon Dioxide 27.0, Anion Gap 3 L, BUN 16, Creatinine 2.08 H, Estim Creat Clear Calc 46.27, Est GFR (MDRD) Af Amer 42 L, Est GFR (MDRD) Non-Af 35 L, BUN/Creatinine Ratio 7.7 L, Glucose 84, Calcium 9.1 11/06/22 21:14: Vancomycin Trough Cancelled Micro: Microbiology 11/04/22 13:20 Fluid - Synovial (joint) Gram Stain - Final 11/04/22 13:20 Fluid - Synovial (joint) Body Fluid Culture - Preliminary No growth-Final to follow 11/04/22 13:20 Fluid - Synovial (joint) Anaerobic Culture - Preliminary No growth in 48 hours. 11/05/22 18:00 Incision/Surgical Site Gram Stain - Final 11/05/22 18:00 Incision/Surgical Site Wound Culture - Preliminary No growth-Final to follow 11/03/22 18:17 Blood Culture (Wb) - Anticubital Right Blood Culture - Preliminary No growth in 48 hours. 11/03/22 18:11 Blood Culture (Wb) - Anticubital Left Blood Culture - Preliminary No growth in 48 hours. 11/04/22 18:30 Stool C. difficile GDH Antigen & Toxins - Final Toxigenic C. difficile Assessment & Plan Assessment/Plan (1) Septic arthritis of hip: QUALIFIERS: Laterality: right Septic arthritis organism: due to unspecified organism Qualified Code(s): M00.9 - Pyogenic arthritis, unspecified PLAN: Septic arthritis of right hip Status post joint aspiration by radiology on 11/04 and 10 cc of purulent fluid was removed. Status post washout by orthopedics in the OR on 11/05. Cultures currently pending. Infectious disease following, appreciate assistance. Continue vancomycin and ceftriaxone per ID recommendations. For pain control, continue scheduled Tylenol and naproxen, oxycodone 10 mg every 4 as needed and IV Dilaudid 1 to 2 mg every 3 as needed. (2) C. difficile colitis: PLAN: Diagnosed on 11/04. CT abdomen pelvis on admission showed findings concerning for inflammatory versus infectious colitis. Complete 10-day course of p.o. vancomycin, stop date 11/14. (3) NYDIA (acute kidney injury): PLAN: Worsening suspect due to vancomycin. Continue w IVF Vanc level today greater than 50. [facility] pharmacy, holding IV vanc and will recheck level in 48h. Additionally, will hold Naprosyn. Check urine studies, check renal US. PLAN: Plan Chronic conditions: History of DVT on Eliquis? Post operative hemoglobin stable on 11/06. Okay to restart home Eliquis. Hypertension? Continue home amlodipine. Losartan held for procedure on 11/05 but pressures remain borderline, will continue to hold for now. Restart as needed. DVT prophylaxis: Eliquis CODE STATUS: Full code, verified Expected disposition: TBD. Likely will require SNF. Charges/Coding Visit Charges Inpatient E&M: 22043 Subs Hosp L2
--- NOTE | 2022-11-07 11:02 | PN.ORTHO_ITS ---
Subjective Subjective Patient seen and examined. Right hip pain improving. Continues to note some right knee pain and neck pain. Denies any numbness or tingling. Denies fevers, chills, nausea vomiting constipation or shortness of breath. Objective Data Objective Data Vital Signs: Vital Signs Temp Pulse Resp BP Pulse Ox O2 Del Method O2 Flow Rate 98.4 F 77 16 121/44 H 94 Room Air 2 11/07/22 03:00 11/07/22 03:00 11/07/22 03:00 11/07/22 03:00 11/07/22 03:00 11/07/22 03:00 11/06/22 19:59 Oxygen Flow Rate (L/min) 2 Oxygen Delivery Method Room Air Weight: 290 lb 5.581 oz Body Mass Index (BMI) 36.3 Intake & Output: Intake and Output for Last 24 Hours 11/05/22 11/06/22 11/07/22 23:59 23:59 23:59 Intake Total 3323.58 / 3323.58 2571.42 / 2571.42 991.67 / 991.67 Output Total 1400 / 1400 900 / 900 200 / 200 Balance 1923.58 / 1923.58 1671.42 / 1671.42 791.67 / 791.67 Lab / Micro Data 11/06/22 09:13 11/06/22 09:13 Labs: Laboratory Results - last 24 hr 11/04/22 13:20: Miscellaneous Cytology SEE PATHOLOGY REPORT 11/06/22 21:14: Vancomycin Trough Cancelled Micro: Microbiology 11/04/22 13:20 Fluid - Synovial (joint) Gram Stain - Final 11/04/22 13:20 Fluid - Synovial (joint) Body Fluid Culture - Preliminary No growth-Final to follow 11/04/22 13:20 Fluid - Synovial (joint) Anaerobic Culture - Preliminary No growth in 48 hours. 11/05/22 18:00 Incision/Surgical Site Gram Stain - Final 11/05/22 18:00 Incision/Surgical Site Wound Culture - Preliminary No growth-Final to follow 11/03/22 18:17 Blood Culture (Wb) - Anticubital Right Blood Culture - Preliminary No growth in 48 hours. 11/03/22 18:11 Blood Culture (Wb) - Anticubital Left Blood Culture - Preliminary No growth in 48 hours. 11/04/22 18:30 Stool C. difficile GDH Antigen & Toxins - Final Toxigenic C. difficile Physical Exam Narrative General - A&Ox3, NAD. VSS/AF Right lower extremity -incisional dressing C/D/I. SILT Sural, Saphenous, SPN, DPN, Tibial N. distributions. DP, PT 2+. BCR. DF, PF, EHL 5/5. No calf TTP. Assessment & Plan Assessment/Plan (1) Septic arthritis of hip: QUALIFIERS: Septic arthritis organism: due to unspecified organism Laterality: right Qualified Code(s): M00.9 - Pyogenic arthritis, unspecified PLAN: POD#2 s/p right hip irrigation and debridement - Pain control - Medicine following for medical management - PT/OT -weightbearing as tolerated right lower extremity with a walker - DVT PPX -Eliquis -Continue to follow arthrocentesis and intraoperative cultures. Continue antib iotics per primary. Agree with infectious disease consultation. -I will sign off today as right hip pain is improving. Defer to primary and ID for antibiotic recommendations. Plan to follow-up 2 weeks postoperatively for wound check and suture removal. Okay to remove surgical dressing on postope rative day #5 and shower. Okay to leave open to air if no drainage. Please not hesitate to call if any questions or concerns arise in the meantime.
[2022-11-07 11:17] LABS: Anion Gap 7 (5-15); BUN 23 mg/dL (7-18); BUN/Creat Ratio 5.9 RATIO (10-20); Calcium,Total 8.1 mg/dL (8.5-10.1); Chloride 112 mmol/L (98-107); Creatinine, Serum 3.89 mg/dL (0.70-1.30); EST Glomerular Filtration Rate 17 mL/min (>60); Est Glom Filt Rate - Afr Amer 21 mL/min (>60); Estimated Creatinine Clearance 24.74 ml/min; Glucose 135 mg/dL (74-106); Sodium Level 141 mmol/L (136-145)
[2022-11-07 11:21] LABS: Vancomycin, Trough Level > 50.0 ug/mL (5.0-15.0)
--- NOTE | 2022-11-07 11:38 | PCM.RX.CS ---
Consult Antibiotic Management Pharmacy has been consulted to manage selected antiobiotic: Vancomycin Type of Intervention Type of Consult: Follow-up Suspected Infection Suspected Infection: Other (SEPTIC ARTHRITIS) Labs Labs: Sodium 141 mmol/L (136-145) 11/07/22 10:08 Potassium 4.0 mmol/L (3.5-5.1) 11/07/22 10:08 Chloride 112 mmol/L (98-107) H 11/07/22 10:08 Carbon Dioxide 22.0 mmol/L (21.0-32.0) 11/07/22 10:08 Anion Gap 7 (5-15) 11/07/22 10:08 BUN 23 mg/dL (7-18) H 11/07/22 10:08 Creatinine 3.89 mg/dL (0.70-1.30) H 11/07/22 10:08 Est GFR (MDRD) Af Amer 21 mL/min (>60) L 11/07/22 10:08 Est GFR (MDRD) Non-Af 17 mL/min (>60) L 11/07/22 10:08 BUN/Creatinine Ratio 5.9 RATIO (10-20) L 11/07/22 10:08 Glucose 135 mg/dL (74-106) H 11/07/22 10:08 Vancomycin Trough > 50.0 ug/mL (5.0-15.0) H 11/07/22 10:08 Random Vancomycin 18.0 ug/mL (0.0-15.0) H 11/05/22 06:47 Microbiology Microbiology: Microbiology 11/04/22 13:20 Fluid - Synovial (joint) Gram Stain - Final 11/04/22 13:20 Fluid - Synovial (joint) Body Fluid Culture - Preliminary No growth-Final to follow 11/04/22 13:20 Fluid - Synovial (joint) Anaerobic Culture - Preliminary No growth in 48 hours. 11/05/22 18:00 Incision/Surgical Site Gram Stain - Final 11/05/22 18:00 Incision/Surgical Site Wound Culture - Preliminary No growth-Final to follow 11/03/22 18:17 Blood Culture (Wb) - Anticubital Right Blood Culture - Preliminary No growth in 48 hours. 11/03/22 18:11 Blood Culture (Wb) - Anticubital Left Blood Culture - Preliminary No growth in 48 hours. 11/04/22 18:30 Stool C. difficile GDH Antigen & Toxins - Final Toxigenic C. difficile Pharmacy Plan for Drug Dosing Pharmacy Plan for Drug Dosing: VANCOMYCIN LEVEL RECEIVED Current Vancomycin Dose: 1750MG Q12 Number of Doses Received: 7 Vancomycin Level: >50 MG/DL Hours Since Last Dose: 11.5 Renal Function: SCR 2.08 MG/DL 11/06, TODAY IT WAS 3.89 MG/DL (CRCL 30.3 ML/MIN USING ADJ BW) Renal Function Trend: WORSENED Lab/Micro: FLUID CX PENDING Vancomycin Plan/Comments: WILL HOLD FURTHER DOSING AND GET A RANDOM LEVEL IN [address] HENRY MADE AWARE OF HIGH TROUGH. Pending Level: 11/09/22 @ 0600 - RANDOM Pharmacy Service will continue to monitor and adjust dosing as required.
[2022-11-07] MEDS: Pantoprazole Sodium 40 MG Tablet PO (12:18)
[2022-11-07] MEDS: Ferrous Sulfate 325 MG Tablet PO (12:18)
[2022-11-07] MEDS: amLODIPine 2.5 MG Tablet PO (12:18)
[2022-11-07] MEDS: Naproxen 500 MG Tablet PO (12:43)
[2022-11-07] MEDS: Venlafaxine XR 150 MG Capsule PO (12:44)
[2022-11-07] MEDS: Fenofibrate 48 MG Tablet PO (12:44)
[2022-11-07] MEDS: Ascorbic Acid 500 MG Tablet 1000 MG PO (12:44)
[2022-11-07 13:48] VITALS: BP 126/72; PULSE 79; RESP 18; TEMP 36.9; O2SAT 95
[2022-11-07 13:50] VITALS: BP 126/72; PULSE 79; RESP 18; TEMP 36.9; O2SAT 95
--- NOTE | 2022-11-07 13:57 | US_ITS ---
INDICATION: NYDIA EXAMINATION: US Kidney(s) complete (eg, kidneys and bladder) TECHNIQUE: Ann scale and color doppler images were obtained of the kidneys. COMPARISON: None. FINDINGS: RIGHT KIDNEY: Measures 13 cm in length.. There is no hydronephrosis. No shadowing calculus, focal lesion or perinephric collection is demonstrated. LEFT KIDNEY: Measures 15 cm in length and is mildly hypertrophic... There is no hydronephrosis. No shadowing calculus, focal lesion or perinephric collection is demonstrated. URINARY BLADDER: No acute abnormality. US/Kidney and Bladder IMPRESSION: No hydronephrosis. Slightly hypertrophic left kidney. Electronically Signed: Marcos Emery MD at 21:02 EDT ,
[2022-11-07 18:39] LABS: Mucous, Urine 0 SEEN /hpf (<or=2+); Red Blood Cells-Urine 0 SEEN /hpf (0-5)
[2022-11-07 18:43] LABS: Color, Urine Yellow (Yellow); Glucose, Dipstick Normal (Normal); Ketone-Dipstick Negative (Negative); Leukocyte Esterase-Dipstick 25 /ul (Negative); Nitrite-Dipstick Negative (Negative); Occult Blood-Urine Negative /ul (Negative); Protein-Dipstick 30 mg/dl (Negative); Specific Gravity, Urine 1.015 (1.002-1.030); Urine Bilirubin Dipstick Negative (Negative); Urine Clarity Sl. Cloudy (Clear); Urine Urobilinogen Normal (Normal)
[2022-11-07 18:49] LABS: Squamous Epithelial Cells - UA 0-5 SEEN /hpf (0-5); White Blood Cells 0-5 SEEN /hpf (0-5)
[2022-11-07 18:50] LABS: Bacteria 1+ /hpf (None Seen); Yeast-Urine 1+ /hpf (None Seen)
[2022-11-07 18:59] LABS: Urine Sodium 50 mmol/L (Not Establ.)
[2022-11-07 20:09] VITALS: BP 134/49; PULSE 82; RESP 16; TEMP 37.1; O2SAT 95
[2022-11-07] MEDS: traZODone 100 MG Tablet PO (21:07)
[2022-11-07] MEDS: Doxazosin 1 MG Tablet PO (21:12)
[2022-11-08] VITALS (15 sets, daily range): BP systolic 114–172; BP diastolic 38–75; PULSE 65–90; RESP 12–18; TEMP 36.4–36.8; O2SAT 86–97
--- NOTE | 2022-11-08 01:40 | CT_ITS ---
EXAM: CT HEAD WITHOUT INTRAVENOUS CONTRAST CLINICAL INDICATION: encephalopathy TECHNIQUE: Multiple axial images were obtained of the head without intravenous contrast. This CT exam was performed using one or more of the following dose reduction techniques: automated exposure control, adjustment of the mA and/or kV according to patient size, and/or use of iterative reconstruction technique. RADIATION DOSE: CTDIvol = 44.99 mGy, DLP = 897.35 mGy-cm COMPARISON: No relevant prior studies available. 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 Some mild ex vacuo enlargement of the right lateral ventricle, no hydrocephalus. No intra- or extra-axial hemorrhage. No intracranial mass or mass effect. Posterior fossa structures are unremarkable. Basal cisterns are patent. BONES/JOINTS: Unremarkable. No discrete lytic or blastic abnormalities. SINUSES: Unremarkable as visualized. Clear. MASTOID AIR CELLS: Unremarkable. Clear. ORBITS: Visualized globes, extraocular muscles, optic nerves and retrobulbar fat appear unremarkable. CT/Brain/Head without Contrast IMPRESSION: 1. No acute intracranial abnormalities identified. 2. Chronic right MCA distribution infarct with volume loss/encephalomalacia involving the insular cortex and surrounding the sylvian fissure. Electronically Signed: Jeb Dunham MD at 2:04 EDT ,
[2022-11-08 02:50] LABS: Bedside Glucose 118 mg/dL (74-106)
[2022-11-08 02:53] LABS: Allen Test Positive; Base Excess -3 mmol/L (-2 to +2); Blood Gas Specimen Type ART; PO2 73 mmHG (75-100); SITE R Radial; SO2 93 % (95-99); Total Carbon Dioxide 24 mmol/L; pCO2 46.1 mmHg (35-45); pH 7.31 (7.35-7.45)
[2022-11-08 03:08] LABS: Absolute Lymphocyte Count 0.73 X10^3/uL (0.83-4.51); Absolute Neutrophil Count 6.7 X10^3/uL (2.0-7.7); Basophil# 0.02 X10^3/uL; Basophil% 0.2 % (0-1); Eosinophil# 0.28 X10^3/uL; Eosinophils% 3.2 % (0-5); Hematocrit 27.6 % (40-54); Lymphocyte # 0.73 X10^3/ul (0.83-4.51); Lymphocyte % 8.3 % (19-41); Mean Corpuscular Hgb 25.1 pg (27.0-32.0); Mean Corpuscular Volume 86.5 fL (80-94); Mean Platelet Vol. 9.9 fl (6.2-12.0); Monocyte# 1.04 X10^3/uL; Monocyte% 11.8 % (0-10); NRBC Flagged by Analyzer 0 % (0-5); Neutrophil # 6.68 X10^3/uL (2.7-7.7); Neutrophil % 75.8 % (47-70); Platelet Count 273 K/mm3 (150-450); RBC Distribution Width CV 17.6 % (11.6-14.6); Red Blood Count 3.19 M/mm3 (4.6-6.2); White Blood Count 8.8 K/mm3 (4.4-11.0)
--- NOTE | 2022-11-08 03:16 | PCM.PN.HOSP ---
Reason for Visit Reason for Visit: Diagnoses Enterocolitis due to Clostridium difficile, not specified as recurrent (11/03/22) Other nonrheumatic aortic valve disorders (11/03/22) Pyogenic arthritis, unspecified (11/03/22) Pain in right hip (11/03/22) Acute kidney failure, unspecified (11/03/22) Diarrhea, unspecified (11/03/22) Subjective Subjective Nurse reports that patient has been confused and staring into space. Head CT with chronic changes. Patient was examined at bedside. Patient alert oriented x3. Knows the month and the year but not the date. Strength 5 out of 5 throughout. Acute encephalopathy Etiology unclear. CMP, ammonia level, ABG. Possible septic arthritis of thigh, IV antibiotics continued C. difficile infection - po vancomycin continued. Objective Data Objective Data Vital Signs: Vital Signs Temp Pulse Resp BP Pulse Ox O2 Del Method O2 Flow Rate 98.7 F 82 16 134/49 H 95 Room Air 2 11/07/22 20:09 11/07/22 20:09 11/07/22 20:09 11/07/22 20:09 11/07/22 20:09 11/07/22 20:09 11/06/22 19:59 Oxygen Flow Rate (L/min) 2 Oxygen Delivery Method Room Air Weight: 131.7 kg Body Mass Index (BMI) 36.3 Intake & Output: Intake and Output for Last 24 Hours 11/06/22 11/07/22 11/08/22 23:59 23:59 23:59 Intake Total 2571.42 / 2571.42 4576.67 / 4576.67 Output Total 900 / 900 200 / 200 Balance 1671.42 / 1671.42 4376.67 / 4376.67 Lab / Micro Data 11/08/22 02:45 11/08/22 02:45 Labs: Laboratory Results - last 24 hr 11/07/22 10:08: Sodium 141, Potassium 4.0, Chloride 112 H, Carbon Dioxide 22.0, Anion Gap 7, BUN 23 H, Creatinine 3.89 H, Estim Creat Clear Calc 24.74, Est GFR (MDRD) Af Amer 21 L, Est GFR (MDRD) Non-Af 17 L, BUN/Creatinine Ratio 5.9 L, Glucose 135 H, Calcium 8.1 L, Vancomycin Trough > 50.0 H 11/07/22 18:30: Urine Color Yellow, Urine Clarity Sl. Cloudy, Urine pH 5.0, Ur Specific [place] 1.015, Urine Protein 30 H, Urine Glucose (UA) Normal, Urine Ketones Negative, Urine Occult Blood Negative, Urine Nitrite Negative, Urine Bilirubin Negative, Urine Urobilinogen Normal, Ur Leukocyte Esterase 25 H, Urine RBC 0 SEEN, Urine WBC 0-5 SEEN, Ur Squamous Epith Cells 0-5 SEEN, Urine Bacteria 1+, Urine Mucus 0 SEEN, Urine Yeast 1+, Ur Random Sodium 50, Urine Creatinine 162.00 11/08/22 02:29: POC Glucose 118 H 11/08/22 02:45: WBC 8.8, RBC 3.19 L, Hgb 8.0 L, Hct 27.6 L, MCV 86.5, MCH 25.1 L, MCHC 29.0 L, RDW Std Deviation 56.0 H, RDW Coeff of Ghassan 17.6 H, Plt Count 273, MPV 9.9, Immature Gran % (Auto) 0.700, Neut % (Auto) 75.8 H, Lymph % (Auto) 8.3 L, Garza % (Auto) 11.8 H, Eos % (Auto) 3.2, Baso % (Auto) 0.2, Absolute Neuts (auto) 6.7, Absolute Lymphs (auto) 0.73 L, Nucleated RBC % 0 Micro: Microbiology 11/04/22 13:20 Fluid - Synovial (joint) Gram Stain - Final 11/04/22 13:20 Fluid - Synovial (joint) Body Fluid Culture - Preliminary No growth-Final to follow 11/04/22 13:20 Fluid - Synovial (joint) Anaerobic Culture - Preliminary No growth in 48 hours. 11/05/22 18:00 Incision/Surgical Site Gram Stain - Final 11/05/22 18:00 Incision/Surgical Site Wound Culture - Preliminary No growth-Final to follow 11/03/22 18:17 Blood Culture (Wb) - Anticubital Right Blood Culture - Preliminary No growth in 48 hours. 11/03/22 18:11 Blood Culture (Wb) - Anticubital Left Blood Culture - Preliminary No growth in 48 hours. 11/04/22 18:30 Stool C. difficile GDH Antigen & Toxins - Final Toxigenic C. difficile ABG Data ABG results: ABG 11/08/22 02:49 Specimen Type ART Sample Site R Radial pH 7.31 L Bicarbonate Actual 23.0 Total CO2 24 Base Excess -3 L O2 Saturation 93 L ABG pCO2 46.1 H ABG pO2 73 L Leandro Test Positive Radiography Diagnostic Testing: Radiology Impression Renal Ultrasound 11/07/22 13:57 IMPRESSION: No hydronephrosis. Slightly hypertrophic left kidney. Electronically Signed: Marcos Emery MD at 21:02 EDT , Brain CT 11/08/22 01:40 IMPRESSION: 1. No acute intracranial abnormalities identified. 2. Chronic right MCA distribution infarct with volume loss/encephalomalacia involving the insular cortex and surrounding the sylvian fissure. Electronically Signed: Jeb Dunham MD at 2:04 EDT ,
[2022-11-08 03:37] LABS: ALB/GLOB Ratio 0.5 RATIO (0.9-2.4); AST(SGOT) 16 U/L (15-37); Alanine Aminotransfer ALT/SGPT 23 U/L (16-61); Alkaline Phosphatase 91 U/L (45-117); BUN 27 mg/dL (7-18); BUN/Creat Ratio 5.6 RATIO (10-20); Calcium,Total 8.5 mg/dL (8.5-10.1); Chloride 108 mmol/L (98-107); Creatinine, Serum 4.85 mg/dL (0.70-1.30); EST Glomerular Filtration Rate 13 mL/min (>60); Est Glom Filt Rate - Afr Amer 16 mL/min (>60); Estimated Creatinine Clearance 19.84 ml/min; Globulin 4.1 g/dL (2.2-4.2); Glucose 102 mg/dL (74-106); Potassium 4.4 mmol/L (3.5-5.1); Protein, Total 6.1 g/dL (6.4-8.2); Sodium Level 141 mmol/L (136-145); Thyroid Stim Hormone (TSH) 1.27 uIU/mL (0.358-3.74)
[2022-11-08 03:46] LABS: Anion Gap 10 (5-15)
[2022-11-08] MEDS: Acetaminophen 500 MG Tablet 1000 MG PO (05:58)
[2022-11-08] MEDS: Baclofen 10 MG Tablet 5 MG PO (06:00)
[2022-11-08] MEDS: Vancomycin 125 MG/5 ML Susp PO.SYRINGE PO ×2 (06:02→11:03)
--- NOTE | 2022-11-08 08:52 | PCM.PN.HOSP ---
Reason for Visit Reason for Visit: Diagnoses Enterocolitis due to Clostridium difficile, not specified as recurrent (11/03/22) Other nonrheumatic aortic valve disorders (11/03/22) Pyogenic arthritis, unspecified (11/03/22) Pain in right hip (11/03/22) Acute kidney failure, unspecified (11/03/22) Diarrhea, unspecified (11/03/22) Subjective Subjective Confused overnight. Objective Data Objective Data Vital Signs: Vital Signs Temp Pulse Resp BP Pulse Ox O2 Del Method O2 Flow Rate 36.8 C 74 18 123/47 H 93 Room Air 2 11/08/22 07:44 11/08/22 07:44 11/08/22 07:44 11/08/22 07:44 11/08/22 07:44 11/08/22 07:44 11/06/22 19:59 Oxygen Flow Rate (L/min) 2 Oxygen Delivery Method Room Air Weight: 131.7 kg Body Mass Index (BMI) 36.3 Intake & Output: Intake and Output for Last 24 Hours 11/06/22 11/07/22 11/08/22 23:59 23:59 23:59 Intake Total 2571.42 / 2571.42 4576.67 / 4576.67 400 / 400 Output Total 900 / 900 200 / 200 150 / 150 Balance 1671.42 / 1671.42 4376.67 / 4376.67 250 / 250 Lab / Micro Data 11/08/22 02:45 11/08/22 02:45 Labs: Laboratory Results - last 24 hr 11/05/22 06:47: Crossmatch See Detail 11/07/22 10:08: Sodium 141, Potassium 4.0, Chloride 112 H, Carbon Dioxide 22.0, Anion Gap 7, BUN 23 H, Creatinine 3.89 H, Estim Creat Clear Calc 24.74, Est GFR (MDRD) Af Amer 21 L, Est GFR (MDRD) Non-Af 17 L, BUN/Creatinine Ratio 5.9 L, Glucose 135 H, Calcium 8.1 L, Vancomycin Trough > 50.0 H 11/07/22 18:30: Urine Color Yellow, Urine Clarity Sl. Cloudy, Urine pH 5.0, Ur Specific [place] 1.015, Urine Protein 30 H, Urine Glucose (UA) Normal, Urine Ketones Negative, Urine Occult Blood Negative, Urine Nitrite Negative, Urine Bilirubin Negative, Urine Urobilinogen Normal, Ur Leukocyte Esterase 25 H, Urine RBC 0 SEEN, Urine WBC 0-5 SEEN, Ur Squamous Epith Cells 0-5 SEEN, Urine Bacteria 1+, Urine Mucus 0 SEEN, Urine Yeast 1+, Ur Random Sodium 50, Urine Creatinine 162.00 11/08/22 02:29: POC Glucose 118 H 11/08/22 02:45: WBC 8.8, RBC 3.19 L, Hgb 8.0 L, Hct 27.6 L, MCV 86.5, MCH 25.1 L, MCHC 29.0 L, RDW Std Deviation 56.0 H, RDW Coeff of Ghassan 17.6 H, Plt Count 273, MPV 9.9, Immature Gran % (Auto) 0.700, Neut % (Auto) 75.8 H, Lymph % (Auto) 8.3 L, [place] % (Auto) 11.8 H, Eos % (Auto) 3.2, Baso % (Auto) 0.2, Absolute Neuts (auto) 6.7, Absolute Lymphs (auto) 0.73 L, Nucleated RBC % 0, Sodium 141, Potassium 4.4, Chloride 108 H, Carbon Dioxide 23.0, Anion Gap 10, BUN 27 H, Creatinine 4.85 H, Estim Creat Clear Calc 19.84, Est GFR (MDRD) Af Amer 16 L, Est GFR (MDRD) Non-Af 13 L, BUN/Creatinine Ratio 5.6 L, Glucose 102, Calcium 8.5, Total Bilirubin 0.30, AST 16, ALT 23, Alkaline Phosphatase 91, Ammonia 35.0 H, Total Protein 6.1 L, Albumin 2.0 L, Globulin 4.1, Albumin/Globulin Ratio 0.5 L, Folate 6.50, TSH 1.27 Micro: Microbiology 11/05/22 18:00 Incision/Surgical Site Gram Stain - Final 11/05/22 18:00 Incision/Surgical Site Wound Culture - Preliminary No growth-Final to follow 11/05/22 18:00 Incision/Surgical Site Anaerobic Culture - Preliminary No growth in 48 hours. 11/04/22 13:20 Fluid - Synovial (joint) Gram Stain - Final 11/04/22 13:20 Fluid - Synovial (joint) Body Fluid Culture - Preliminary No growth-Final to follow 11/04/22 13:20 Fluid - Synovial (joint) Anaerobic Culture - Preliminary No growth in 48 hours. 11/03/22 18:17 Blood Culture (Wb) - Anticubital Right Blood Culture - Preliminary No growth in 48 hours. 11/03/22 18:11 Blood Culture (Wb) - Anticubital Left Blood Culture - Preliminary No growth in 48 hours. 11/04/22 18:30 Stool C. difficile GDH Antigen & Toxins - Final Toxigenic C. difficile ABG Data ABG results: ABG 11/08/22 02:49 Specimen Type ART Sample Site R Radial pH 7.31 L Bicarbonate Actual 23.0 Total CO2 24 Base Excess -3 L O2 Saturation 93 L ABG pCO2 46.1 H ABG pO2 73 L Leandro Test Positive Radiography Diagnostic Testing: Radiology Impression Renal Ultrasound 11/07/22 13:57 IMPRESSION: No hydronephrosis. Slightly hypertrophic left kidney. Electronically Signed: Marcos Emery MD at 21:02 EDT , Brain CT 11/08/22 01:40 IMPRESSION: 1. No acute intracranial abnormalities identified. 2. Chronic right MCA distribution infarct with volume loss/encephalomalacia involving the insular cortex and surrounding the sylvian fissure. Electronically Signed: Jeb Dunham MD at 2:04 EDT , Physical Exam Const Orientation / Consciousness: confused HEENT head/scalp atraumatic Resp normal respiratory effort, no retractions, no use of accessory muscles and clear to auscultation bilaterally Cardio regular rate, regular rhythm, S1 normal heart sound and S2 normal heart sound GI normal to inspection, nondistended, normoactive bowel sounds, soft to palpation, non-tender and non-distended Extremity normal to inspection Assessment & Plan Assessment/Plan (1) Septic arthritis of hip: QUALIFIERS: Laterality: right Septic arthritis organism: due to unspecified organism Qualified Code(s): M00.9 - Pyogenic arthritis, unspecified PLAN: Septic arthritis of right hip Status post joint aspiration by radiology on 11/04 and 10 cc of purulent fluid was removed. Status post washout by orthopedics in the OR on 11/05. Cultures currently pending. Infectious disease following, appreciate assistance. Continue vancomycin and ceftriaxone per ID recommendations. For pain control, continue scheduled Tylenol and naproxen, oxycodone 10 mg every 4 as needed and IV Dilaudid 1 to 2 mg every 3 as needed. (2) C. difficile colitis: PLAN: Diagnosed on 11/04. CT abdomen pelvis on admission showed findings concerning for inflammatory versus infectious colitis. Complete 10-day course of p.o. vancomycin, stop date 11/14. (3) NYDIA (acute kidney injury): PLAN: Worsening suspect due to IV vancomycin. On 11/07: Vanc level today greater than 50. DW pharmacy, holding IV vanc and will recheck level in 48h. Continue w IVF Additionally, will hold Naprosyn. FENa 0.85%. US showed no hydronephrosis. Given that is continue to worsen, will consult nephrology. (4) Encephalopathy: PLAN: Noted confusion in early AM on 11/08. Head CT showed no acute process, but showed chronic right MCA distribution infarct. Likely multifactorial, though favoring toxic: from prior CVA + medications in patient with worsening kidney function. Not felt to be uremic by nephrology. Will DC baclofen and gabapentin. Reviewed MAR: pt has not received hydromorphone since the and oxycodone since AM on 11/07 PLAN: Plan Chronic conditions: History of DVT on Eliquis? Post operative hemoglobin stable on 11/06. Okay to restart home Eliquis. Hypertension? Continue home amlodipine. Losartan held for procedure on 11/05 but pressures remain borderline, will continue to hold for now. Restart as needed. DVT prophylaxis: Eliquis CODE STATUS: Full code, verified Expected disposition: TBD. Likely need SNF when medically stable. Charges/Coding Visit Charges Inpatient E&M: 92619 Subs Hosp L2
[2022-11-08] MEDS: Lactated Ringers 1,000 ML 100 ML IV (10:26)
[2022-11-08] MEDS: APIXABAN 5 MG TABLET PO (10:30)
[2022-11-08] MEDS: Ascorbic Acid 500 MG Tablet 1000 MG PO (10:30)
[2022-11-08] MEDS: amLODIPine 2.5 MG Tablet PO (10:31)
[2022-11-08] MEDS: Potassium Chloride Oral Tablet 20 MEQ PO (10:31)
[2022-11-08] MEDS: Fenofibrate 48 MG Tablet PO (10:31)
[2022-11-08] MEDS: Pantoprazole Sodium 40 MG Tablet PO (10:31)
[2022-11-08] MEDS: Venlafaxine XR 150 MG Capsule PO (11:03)
[2022-11-08] MEDS: Ferrous Sulfate 325 MG Tablet PO (11:03)
--- NOTE | 2022-11-08 11:13 | CON.PCM.RE_ITS ---
Assessment & Plan Assessment/Plan (1) NYDIA (acute kidney injury): PLAN: It appears to be multifactorial, related to sepsis, dehydration due to profound diarrhea secondary to C. difficile colitis, as well as IV contrast administration. He has no significant acidosis, notes no fluid overload, no hyperkalemia. I suspect his mental status changes are not due to uremia. He appears to be still volume depleted and I agree with IV fluid administration. We will continue monitoring him for renal replacement therapy need. Thank you for the consult HPI Consult Data Date of Consult: 11/08/22 HPI Narrative Reason for Consultation: Acute kidney injury HPI Narrative: PHILIP DU, is a 57 M who presents to emergency room several days ago with what appears to be septic arthritis. He has complicated past medical history, he had been recently treated for endocarditis and about 3 weeks ago was placed on the long-term Bactrim. Review of his records revealed that he had a previous episodes of acute kidney injury, specifically back in August when his creatinine went up to 4.62 after administration of IV contrast, fortunately his kidney function has returned back to normal. Upon presentation his creatinine was 1.45, but rapidly improved with hydration to 0.85, unfortunately he has received another dose of IV contrast and his creatinine is now on the rise. At the same time he had profound diarrhea and is C. difficile positive at the moment. His oral intake is scant. Has received vancomycin and that his level is critically high now. Review of his records revealed that he is got low-grade proteinuria for at least several months. He is not a diabetic, but carries diagnosis of prediabetes. He is obese, has history of polyclonal gammopathy, strokes, obs tructive sleep apnea, rheumatoid arthritis. He has been passing urine. Needs renal imaging [facility] Medical History Abnormal LFTs Aortic valve regurgitation Cerebral edema Chronic anticoagulation Chronic back pain Chronic lower back pain Class 3 obesity Colon polyp COPD (chronic obstructive pulmonary disease) DVT of lower limb, acute Dysarthria Elevated TSH Encephalopathy acute Family history of heart disease Former smoker GERD (gastroesophageal reflux disease) Gout HCAP (healthcare-associated pneumonia) Hearing loss, left Heme positive stool Hypertension Hyperuricemia Hypoalbuminemia Internal and external bleeding hemorrhoids Iron deficiency Left atrial enlargement Leukocytosis Normocytic hypochromic anemia Obesity Peripheral vascular disease PFO (patent foramen ovale) Physical debility Polyclonal gammopathy Prediabetes Presence of arterial stent QT prolongation Rheumatoid arthritis SAH (subarachnoid hemorrhage) Septic shock Stroke/cerebrovascular accident Superficial thrombophlebitis Home Medications polyethylene glycol 3350 17 g PO/SL QHS CONSTIPATION 07/23/22 [History Last Taken 07/22/22 08:10] aluminum-mag hydroxide-simethicone 400 mg-400 mg-40 mg/5 mL oral susp (Mag-Al Plus Extra Strength) 15 ml PO Q6H PRN PRN HEARTBURN OR INDIGESTION #1 mL 09/02/22 [Rx Last Taken Unknown] acetaminophen 325 mg tablet 650 mg PO Q6H PRN pain/fever 09/15/22 [History Last Taken Unknown] ascorbic acid (vitamin C) 500 mg tablet 1,000 mg PO 1200 supplement 09/15/22 [History Last Taken Unknown] apixaban 5 mg tablet (Eliquis) 5 mg PO BID Check with primary doctor #60 tabs 10/09/22 [Rx Last Taken Unknown] baclofen 10 mg tablet 5 mg (1/2 x 10 mg) PO TID #90 tabs 10/09/22 [Rx Last Taken Unknown] clopidogrel 75 mg tablet (Plavix) 75 mg PO DAILY Check with primary doctor #30 tabs 10/09/22 [Rx Last Taken Unknown] doxazosin 1 mg tablet 1 mg PO QHS #30 tabs 10/09/22 [Rx Last Taken Unknown] fenofibrate nanocrystallized 48 mg tablet 48 mg PO DAILYCM Check with primary doctor #30 tabs 10/09/22 [Rx Last Taken Unknown] ferrous sulfate 325 mg (65 mg iron) tablet (FeroSul) 325 mg PO DAILY@1200 supplement #30 tabs 10/09/22 [Rx Last Taken Unknown] gabapentin 100 mg capsule 200 mg (2 x 100 mg) PO TIDCM #90 caps 10/09/22 [Rx Last Taken Unknown] losartan 100 mg tablet 100 mg PO DAILY #30 tabs 10/09/22 [Rx Last Taken Unknown] oxycodone 10 mg tablet 10 mg PO Q6H PRN pain 7 days #28 tabs 10/09/22 [Rx Last Taken Unknown] pantoprazole 40 mg tablet,delayed release 40 mg PO DAILY Check with primary doctor #30 tabs 10/09/22 [Rx Last Taken Unknown] potassium chloride 20 mEq tablet,extended release(part/cryst) (Klor-Con M) 20 meq PO DAILYCM #30 tabs 10/09/22 [Rx Last Taken Unknown] sennosides 8.6 mg-docusate sodium 50 mg tablet (Stool Softener-Stimulant Laxative) 2 tab PO BID #120 tabs 10/09/22 [Rx Last Taken Unknown] trazodone 100 mg tablet 100 mg PO QHS #30 tabs 10/09/22 [Rx Last Taken Unknown] venlafaxine 150 mg capsule,extended release 24 hr 150 mg PO DAILY #30 caps 10/09/22 [Rx Last Taken Unknown] oxycodone 15 mg tablet,crush resistant,extended release 12 hr (OxyContin) mg PO 11/03/22 [History Last Taken Unknown] sulfamethoxazole 800 mg-trimethoprim 160 mg tablet tab 11/03/22 [History Last Taken Unknown] amlodipine 10 mg tablet 2.5 mg PO DAILY HTN 11/04/22 [History Last Taken Unknown] Allergy/AdvReac Type Severity Reaction Status Date / Time cephalexin Allergy Shortness Verified 11/03/22 14:41 of breath Family History Other Heart disease Surgical History H/O hand surgery History of bowel resection Hx of total knee arthroplasty 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 S/P PICC central line placement Social History household members: spouse Smoking Status: Former smoker alcohol intake: current alcohol intake frequency: holidays/special occasions on ly substance use type: does not use caffeine: No ROS Review of Systems ROS Unobtainable: due to encephalopathy, due to mental condition and due to men simon status Physical Exam Const Constitutional Narrative: He is awake, does not follow commands, very agitated, appears to be in pain Orientation / Consciousness: confused Nutritional Appearance: obese HEENT normocephalic Head and Scalp: atraumatic Eyes PERRL Neck no lymphadenopathy Resp no use of accessory muscles and clear to auscultation bilaterally Cardio regular rate and no rub Peripheral Pulses: pulses 2+ throughout GI non-tender Auscultation: hyperactive bowel sounds Palpation: soft Back/Spine normal ROM Extremity full ROM Skin no rashes or lesions noted Neuro Sensorium / Orientation: awake Psych Attitude: uncooperative Mood & Affect: anxious Lab / Micro Data Attestation: I reviewed the patient's lab results. 11/08/22 02:45 11/08/22 02:45 Labs: Laboratory Results - last 24 hr 11/05/22 06:47: Crossmatch See Detail 11/07/22 10:08: Sodium 141, Potassium 4.0, Chloride 112 H, Carbon Dioxide 22.0, Anion Gap 7, BUN 23 H, Creatinine 3.89 H, Estim Creat Clear Calc 24.74, Est GFR (MDRD) Af Amer 21 L, Est GFR (MDRD) Non-Af 17 L, BUN/Creatinine Ratio 5.9 L, Glucose 135 H, Calcium 8.1 L, Vancomycin Trough > 50.0 H 11/07/22 18:30: Urine Color Yellow, Urine Clarity Sl. Cloudy, Urine pH 5.0, Ur Specific [place] 1.015, Urine Protein 30 H, Urine Glucose (UA) Normal, Urine Ketones Negative, Urine Occult Blood Negative, Urine Nitrite Negative, Urine Bilirubin Negative, Urine Urobilinogen Normal, Ur Leukocyte Esterase 25 H, Urine RBC 0 SEEN, Urine WBC 0-5 SEEN, Ur Squamous Epith Cells 0-5 SEEN, Urine Bacteria 1+, Urine Mucus 0 SEEN, Urine Yeast 1+, Ur Random Sodium 50, Urine Creatinine 162.00 11/08/22 02:29: POC Glucose 118 H 11/08/22 02:45: WBC 8.8, RBC 3.19 L, Hgb 8.0 L, Hct 27.6 L, MCV 86.5, MCH 25.1 L , MCHC 29.0 L, RDW Std Deviation 56.0 H, RDW Coeff of Ghassan 17.6 H, Plt Count 273, MPV 9.9, Immature Gran % (Auto) 0.700, Neut % (Auto) 75.8 H, Lymph % (Auto) 8.3 L, [place] % (Auto) 11.8 H, Eos % (Auto) 3.2, Baso % (Auto) 0.2, Absolute Neuts (auto) 6.7, Absolute Lymphs (auto) 0.73 L, Nucleated RBC % 0, Sodium 141, Potassium 4.4, Chloride 108 H, Carbon Dioxide 23.0, Anion Gap 10, BUN 27 H, Creatinine 4.85 H, Estim Creat Clear Calc 19.84, Est GFR (MDRD) Af Amer 16 L, Est GFR (MDRD) Non-Af 13 L, BUN/Creatinine Ratio 5.6 L, Glucose 102, Calcium 8.5, Total Bilirubin 0.30, AST 16, ALT 23, Alkaline Phosphatase 91, Ammonia 35.0 H, Total Protein 6.1 L, Albumin 2.0 L, Globulin 4.1, Albumin/Globulin Ratio 0.5 L, Folate 6.50, TSH 1.27 Micro: Microbiology 11/05/22 18:00 Incision/Surgical Site Gram Stain - Final 11/05/22 18:00 Incision/Surgical Site Wound Culture - Preliminary No growth-Final to follow 11/05/22 18:00 Incision/Surgical Site Anaerobic Culture - Preliminary No growth in 48 hours. 11/04/22 13:20 Fluid - Synovial (joint) Gram Stain - Final 11/04/22 13:20 Fluid - Synovial (joint) Body Fluid Culture - Preliminary No growth-Final to follow 11/04/22 13:20 Fluid - Synovial (joint) Anaerobic Culture - Preliminary No growth in 48 hours. ABG Data ABG results: ABG 11/08/22 02:49 Specimen Type ART Sample Site R Radial pH 7.31 L Bicarbonate Actual 23.0 Total CO2 24 Base Excess -3 L O2 Saturation 93 L ABG pCO2 46.1 H ABG pO2 73 L Leandro Test Positive Radiology Impression Renal Ultrasound 11/07/22 13:57 IMPRESSION: No hydronephrosis. Slightly hypertrophic left kidney. Electronically Signed: Marcos Emery MD at 21:02 EDT , Brain CT 11/08/22 01:40 IMPRESSION: 1. No acute intracranial abnormalities identified. 2. Chronic right MCA distribution infarct with volume loss/encephalomalacia involving the insular cortex and surrounding the sylvian fissure. Electronically Signed: Jeb Dunham MD at 2:04 EDT ,
[2022-11-08] MEDS: Haloperidol Lactate 5 MG/ML Vial 1 MG IV (16:05)
[2022-11-08] MEDS: Lactated Ringers 1,000 ML 150 ML IV ×2 (17:21→23:24)
[2022-11-09] VITALS (10 sets, daily range): BP systolic 117–172; BP diastolic 50–77; PULSE 69–107; RESP 18–24; TEMP 36.3–36.9; O2SAT 89–99
[2022-11-09 05:48] LABS: Absolute Lymphocyte Count 0.68 X10^3/uL (0.83-4.51); Absolute Neutrophil Count 8.3 X10^3/uL (2.0-7.7); Basophil# 0.03 X10^3/uL; Basophil% 0.3 % (0-1); Eosinophil# 0.29 X10^3/uL; Eosinophils% 2.8 % (0-5); Hematocrit 27.1 % (40-54); Hemoglobin 7.9 g/dL (13.0-16.5); Lymphocyte # 0.68 X10^3/ul (0.83-4.51); Lymphocyte % 6.6 % (19-41); Mean Corp Hgb Conc 29.2 g/dL (32-36); Mean Corpuscular Hgb 25.2 pg (27.0-32.0); Mean Corpuscular Volume 86.6 fL (80-94); Monocyte# 0.97 X10^3/uL; Monocyte% 9.4 % (0-10); NRBC Flagged by Analyzer 0 % (0-5); Neutrophil # 8.25 X10^3/uL (2.7-7.7); Platelet Count 296 K/mm3 (150-450); RBC Distribution Width CV 17.5 % (11.6-14.6); RBC Distribution Width SD 55.8 fl (35.1-43.9); Red Blood Count 3.13 M/mm3 (4.6-6.2); White Blood Count 10.3 K/mm3 (4.4-11.0)
[2022-11-09] MEDS: Lactated Ringers 1,000 ML 150 ML IV ×3 (05:53→21:08)
[2022-11-09 06:21] LABS: Vancomycin, Random Level 41.2 ug/mL (0.0-15.0)
[2022-11-09 06:24] LABS: Anion Gap 4 (5-15); BUN 32 mg/dL (7-18); BUN/Creat Ratio 5.2 RATIO (10-20); Calcium,Total 8.7 mg/dL (8.5-10.1); Chloride 112 mmol/L (98-107); Creatinine, Serum 6.19 mg/dL (0.70-1.30); EST Glomerular Filtration Rate 10 mL/min (>60); Est Glom Filt Rate - Afr Amer 12 mL/min (>60); Estimated Creatinine Clearance 15.55 ml/min; Glucose 81 mg/dL (74-106); Potassium 4.7 mmol/L (3.5-5.1); Sodium Level 139 mmol/L (136-145)
--- NOTE | 2022-11-09 08:12 | PN.HOSP_ITS ---
Reason for Visit Reason for Visit: Diagnoses Enterocolitis due to Clostridium difficile, not specified as recurrent ( 3) Encephalopathy, unspecified (11/03/22) Other nonrheumatic aortic valve disorders (11/03/22) Pyogenic arthritis, unspecified (11/03/22) Pain in right hip (11/03/22) Acute kidney failure, unspecified (11/03/22) Diarrhea, unspecified (11/03/22) Subjective Subjective Patient is a 57-year-old gentleman with multiple comorbidities was admitted with acute intractable right hip pain. An assessment of septic joint was made, patient underwent irrigation and debridement of the right hip and washout and cultures sent. Objective Data Objective Data Vital Signs: Vital Signs Temp Pulse Resp BP Pulse Ox O2 Del Method O2 Flow Rate 97.8 F 69 18 117/50 L 98 Nasal Cannula 2 11/09/22 01:56 11/09/22 01:56 11/09/22 01:56 11/09/22 01:56 11/09/22 01:56 11/09/22 02:00 11/09/22 02:00 Oxygen Flow Rate (L/min) 2 Oxygen Delivery Method Nasal Cannula Weight: 131.7 kg Body Mass Index (BMI) 36.3 Intake & Output: Intake and Output for Last 24 Hours 11/07/22 11/08/22 11/09/22 23:59 23:59 23:59 Intake Total 4576.67 / 4576.67 2919.17 / 2919.17 972.5 / 972.5 Output Total 200 / 200 650 / 650 150 / 150 Balance 4376.67 / 4376.67 2269.17 / 2269.17 822.5 / 822.5 Lab / Micro Data 11/09/22 05:15 11/09/22 05:15 Labs: Laboratory Results - last 24 hr 11/09/22 05:15: WBC 10.3, RBC 3.13 L, Hgb 7.9 L, Hct 27.1 L, MCV 86.6, MCH 25.2 L, MCHC 29.2 L, RDW Std Deviation 55.8 H, RDW Coeff of Ghassan 17.5 H, Plt Count 296, MPV 10.0, Immature Gran % (Auto) 0.900, Neut % (Auto) 80.0 H, Lymph % (Auto) 6.6 L, [place] % (Auto) 9.4, Eos % (Auto) 2.8, Baso % (Auto) 0.3, Absolute Neuts (auto) 8.3 H, Absolute Lymphs (auto) 0.68 L, Nucleated RBC % 0, Sodium 139, Potassium 4.7, Chloride 112 H, Carbon Dioxide 23.0, Anion Gap 4 L, BUN 32 H , Creatinine 6.19 H, Estim Creat Clear Calc 15.55, Est GFR (MDRD) Af Amer 12 L, Est GFR (MDRD) Non-Af 10 L, BUN/Creatinine Ratio 5.2 L, Glucose 81, Calcium 8.7, Random Vancomycin 41.2 H Micro: Microbiology 11/05/22 18:00 Incision/Surgical Site Gram Stain - Final 11/05/22 18:00 Incision/Surgical Site Wound Culture - Final No growth aerobically. 11/05/22 18:00 Incision/Surgical Site Anaerobic Culture - Preliminary No growth in 48 hours. 11/03/22 18:11 Blood Culture (Wb) - Anticubital Left Blood Culture - Final No growth in 5 days. 11/03/22 18:17 Blood Culture (Wb) - Anticubital Right Blood Culture - Final No growth in 5 days. 11/04/22 13:20 Fluid - Synovial (joint) Gram Stain - Final 11/04/22 13:20 Fluid - Synovial (joint) Body Fluid Culture - Preliminary No growth-Final to follow 11/04/22 13:20 Fluid - Synovial (joint) Anaerobic Culture - Preliminary No growth in 48 hours. 11/04/22 18:30 Stool C. difficile GDH Antigen & Toxins - Final Toxigenic C. difficile Physical Exam Narrative GENERAL: Belligerent HEENT: Atraumatic; normocephalic EYES; Anicteric, Normal Conjunctiva NECK; supple, normal thyroid, RESPIRATORY: Diminished to auscultation CARDIOVASCULAR: Regular S1 S2, GI: soft, normoactive bowel sounds, : No Renal angle tenderness; EXTREMITIES: No edema, no clubbing, MUSCULOSKELETAL: no muscle wasting NEURO: Awake; no lateralizing signs. SKIN: No Rash PSYCH; agitated Assessment & Plan Assessment/Plan (1) Septic arthritis of hip: QUALIFIERS: Septic arthritis organism: due to unspecified organism Laterality: right Qualified Code(s): M00.9 - Pyogenic arthritis, unspecified PLAN: Plan Patient is a 57-year-old gentleman with multiple comorbidities was admitted with acute intractable right hip pain. An assessment of septic joint was made, patient underwent irrigation and debridement of the right hip and washout and cultures sent. 1. Septic arthritis involving the right joint ? Patient underwent incision and drainage by general surgery on 11/06/2022 cultures sent patient managed with vancomycin and ceftriaxone. Patient cultures so far pending 2. Acute C. difficile colitis ? On p.o. vancomycin 3. Acute delirium ? Possibly related to patient underlying septic joint as well as medications. Patient was on baclofen and gabapentin discontinued patient treated symptomatically with Haldol as needed 4. History of previous DVT ? Status post [place] placement. Currently on apixaban 5. 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 Patient apparently did require long-term IV antibiotics in 09/2019 ? 6. Hypertension - Blood pressure controlled, home medications continued with dose adjustment as needed 7. GERD ? On PPI 8. DVT prophylaxis ? On apixaban Time spent in the patient's overall evaluation,decision-making process, review of diagnostic data, adjustment of management, discussion with other providers, nursing nursing and ancillary staff involved in patient's care documentation, 55 minutes Charges/Coding Visit Charges Inpatient E&M: 63241 [facility] Hosp L3
--- NOTE | 2022-11-09 08:20 | NURSING ---
Pt lethargic overnight, this AM noted to be agitated, refusing to wear oxygen, and refusing vital signs to be taken other than blood pressure. aware.
[2022-11-09 08:46] LABS: Allen Test Positive; Base Excess -5 mmol/L (-2 to +2); Bicarbonate 20.5 mmol/L (22-26); Blood Gas Specimen Type ART; FI02 21; PO2 65 mmHG (75-100); SITE L Radial; SO2 91 % (95-99); Total Carbon Dioxide 22 mmol/L; pCO2 38.5 mmHg (35-45); pH 7.34 (7.35-7.45)
[2022-11-09] MEDS: 0.9% Saline Lock 10 ML Syringe IV ×4 (08:52→15:45)
[2022-11-09] MEDS: Haloperidol Lactate 5 MG/ML Vial 1 MG IV ×2 (08:52→15:44)
[2022-11-09] MEDS: HYDROmorphone 1 MG/ML Syringe IV ×2 (09:03→21:02)
[2022-11-09 09:32] LABS: Vitamin B12 140 pg/mL (211-911)
--- NOTE | 2022-11-09 14:18 | PN.RENAL_ITS ---
Subjective Subjective Following for NYDIA No overnight events. Patient awake, does not follow commands. No acute distress. at bedside. Objective Data Objective Data Vital Signs: Vital Signs Temp Pulse Resp BP Pulse Ox O2 Del Method O2 Flow Rate 97.8 F 74 18 151/55 H 99 Nasal Cannula 3 11/09/22 11:11 11/09/22 11:11 11/09/22 11:11 11/09/22 11:11 11/09/22 11:11 11/09/22 11:11 11/09/22 11:11 Oxygen Flow Rate (L/min) 3 Oxygen Delivery Method Nasal Cannula Weight: 131.7 kg Body Mass Index (BMI) 36.3 Intake & Output: Intake and Output for Last 24 Hours 11/07/22 11/08/22 11/09/22 23:59 23:59 23:59 Intake Total 4576.67 / 4576.67 2919.17 / 2919.17 2022.5 / 2022.5 Output Total 200 / 200 650 / 650 150 / 150 Balance 4376.67 / 4376.67 2269.17 / 2269.17 1872.5 / 1872.5 Lab / Micro Data 11/09/22 05:15 11/09/22 05:15 Labs: Laboratory Results - last 24 hr 11/08/22 02:45: Vitamin B12 140 L 11/09/22 05:15: WBC 10.3, RBC 3.13 L, Hgb 7.9 L, Hct 27.1 L, MCV 86.6, MCH 25.2 L, MCHC 29.2 L, RDW Std Deviation 55.8 H, RDW Coeff of Ghassan 17.5 H, Plt Count 296, MPV 10.0, Immature Gran % (Auto) 0.900, Neut % (Auto) 80.0 H, Lymph % (Auto) 6.6 L, Weber % (Auto) 9.4, Eos % (Auto) 2.8, Baso % (Auto) 0.3, Absolute Neuts (auto) 8.3 H, Absolute Lymphs (auto) 0.68 L, Nucleated RBC % 0, Sodium 139, Potassium 4.7, Chloride 112 H, Carbon Dioxide 23.0, Anion Gap 4 L, BUN 32 H , Creatinine 6.19 H, Estim Creat Clear Calc 15.55, Est GFR (MDRD) Af Amer 12 L, Est GFR (MDRD) Non-Af 10 L, BUN/Creatinine Ratio 5.2 L, Glucose 81, Calcium 8.7, Random Vancomycin 41.2 H Micro: Microbiology 11/05/22 18:00 Incision/Surgical Site Gram Stain - Final 11/05/22 18:00 Incision/Surgical Site Wound Culture - Final No growth aerobically. 11/05/22 18:00 Incision/Surgical Site Anaerobic Culture - Preliminary No growth in 48 hours. 11/03/22 18:11 Blood Culture (Wb) - Anticubital Left Blood Culture - Final No growth in 5 days. 11/03/22 18:17 Blood Culture (Wb) - Anticubital Right Blood Culture - Final No growth in 5 days. 11/04/22 13:20 Fluid - Synovial (joint) Gram Stain - Final 11/04/22 13:20 Fluid - Synovial (joint) Body Fluid Culture - Preliminary No growth-Final to follow 11/04/22 13:20 Fluid - Synovial (joint) Anaerobic Culture - Preliminary No growth in 48 hours. 11/04/22 18:30 Stool C. difficile GDH Antigen & Toxins - Final Toxigenic C. difficile ABG Data ABG results: ABG 11/09/22 08:41 Specimen Type ART Sample Site L Radial pH 7.34 L Bicarbonate Actual 20.5 L Total CO2 22 Base Excess -5 L O2 Saturation 91 L O2 % 21 ABG pCO2 38.5 ABG pO2 65 L Leandro Test Positive Physical Exam Narrative Alert, resting in bed. Does not follow directions. No apparent distress S1, S2, RRR Lung sounds clear anteriorly and posteriorly, no wheezes, rhonchi or rales noted Abdomen soft, rounded, +Bowel sounds No edema condom catheter with clear yellow urine in canister Const Constitutional Narrative: He is awake, does not follow commands, very agitated, appears to be in pain Assessment & Plan Assessment/Plan (1) NYDIA (acute kidney injury): PLAN: - Nonoliguric, mildly hypovolemic acute kidney injury which is multifactor ial: related to infection, dehydration due to profound diarrhea secondary to C. difficile colitis and poor oral intake, as well as IV contrast administration. He has no significant acidosis or hyperkalemia, no fluid overload. Agree with IV fluid administration. Has normal baseline creatinine. Creatinine 1.45 on admission (8/15), improved to 0.85 on 11/04 however serum creatinine has been slowly rising since 11/05. Today his creatinine is up to 6.19 mg/dL. Renal ultrasound: Right kidney 13 cm, left kidney 15 cm, no hydronephrosis, slightly hypertrophic left kidney. UA negative for blood, 30 protein. - Possibly patient is heading towards needing renal placement therapy. Discussed this with patient's , Lise who is at bedside. She is familiar with dialysis as patient did need hemodialysis in August of this year at [facility]. Fortunately renal function improved and patient did not need renal placement therapy at time of hospital discharge. If renal function worse tomorrow then will have temporary hemodialysis line placed and begin renal placement therapy. Discussed this with patient's at bedside today and she is in agreement. Discussed risks and benefits of hemodialysis. Questions answered. - labs ordered for am - bps acceptable on norvasc - confusion; brain ct no acute process - septic arthritis right hip, underwent I&D right hip with washout, on Ceftriaxone - will discuss nephrology plan with Dr. Zheng
--- NOTE | 2022-11-09 14:37 | PN.ID_ITS ---
Physical Exam Narrative Confused. No fever, family at bedside. Const Orientation / Consciousness: confused and lethargic Resp normal air movement and clear to auscultation bilaterally Cardio regular rate and regular rhythm GI soft to palpation and non-tender; Negative for non-distended Extremity General Extremity: edema Skin Skin Narrative: no new rash ID ID: Route of nutrition/ use of supplements: [] Nutritional Intake: [] IV Site: [] [place] Catheter: [] Assessment & Plan Assessment/Plan (1) Septic arthritis of hip: QUALIFIERS: Septic arthritis organism: due to unspecified organism Laterality: right Qualified Code(s): M00.9 - Pyogenic arthritis, unspecified PLAN: 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 Reviewed [facility] and [facility] records, saw Dr. Morgan with ID 3 weeks ago, plan was for bactrim for one year. Now with new R hip septic arthritis. Aspiration 11/04 and OR 11/[address] Hemphill so far with negative gram stain and culture. Bcx x2 11/03 remain neg. On vanc/zosyn. Whipple's can very rarely cause a septic arthritis, so spoke with path lab and ordered send out test for pcr of fluid sample. 11/06/22 changed abx to vanc/ceftriaxone 2gm q12h to cover for normal septic arthritis skin eduardo as well as potential relapse of Whipple. cdiff colitis - on po vanc. new NYDIA - neph following, vanc level high. Recommend checking urine eosinophils if possible. Vanc on hold. Will follow (2) NYDIA (acute kidney injury): (3) Encephalopathy: (4) C. difficile colitis:
[2022-11-10] VITALS (17 sets, daily range): BP systolic 132–182; BP diastolic 42–97; PULSE 81–100; RESP 9–20; TEMP 36.4–37.4; O2SAT 79–97; BMI 36.3
[2022-11-10] MEDS: Haloperidol Lactate 5 MG/ML Vial 1 MG IV ×3 (01:31→20:29)
--- NOTE | 2022-11-10 02:30 | NURSING ---
pt on and off agitation. Will wake up and start to pull his nasal cannula off and pulse ox finger probe, then will fall back to sleep. Will only respond with baby when spoken to, very confused, and is very resistive to care. pt desats to 88-77% on RA during sleep, so now placed on 4L and saturation in 96-97%. Pt currently resting, and no further concerns at this time.
[2022-11-10] MEDS: HYDROmorphone 1 MG/ML Syringe IV ×4 (02:55→20:03)
[2022-11-10] MEDS: Lactated Ringers 1,000 ML 150 ML IV ×2 (04:42→12:25)
[2022-11-10] MEDS: 0.9% Saline Lock 10 ML Syringe IV ×3 (05:16→10:43)
[2022-11-10 06:48] LABS: Absolute Lymphocyte Count 0.74 X10^3/uL (0.83-4.51); Absolute Neutrophil Count 9.7 X10^3/uL (2.0-7.7); Basophil# 0.03 X10^3/uL; Basophil% 0.2 % (0-1); Eosinophil# 0.27 X10^3/uL; Eosinophils% 2.2 % (0-5); Hematocrit 28.3 % (40-54); Hemoglobin 8.2 g/dL (13.0-16.5); Lymphocyte # 0.74 X10^3/ul (0.83-4.51); Lymphocyte % 6.1 % (19-41); Mean Corpuscular Hgb 25.1 pg (27.0-32.0); Mean Corpuscular Volume 86.5 fL (80-94); Mean Platelet Vol. 9.8 fl (6.2-12.0); Monocyte# 1.18 X10^3/uL; Monocyte% 9.7 % (0-10); NRBC Flagged by Analyzer 0 % (0-5); Neutrophil # 9.73 X10^3/uL (2.7-7.7); Neutrophil % 80.5 % (47-70); Platelet Count 318 K/mm3 (150-450); RBC Distribution Width CV 17.7 % (11.6-14.6); RBC Distribution Width SD 56.5 fl (35.1-43.9); Red Blood Count 3.27 M/mm3 (4.6-6.2); White Blood Count 12.1 K/mm3 (4.4-11.0)
[2022-11-10 07:13] LABS: Anion Gap 6 (5-15); BUN 35 mg/dL (7-18); BUN/Creat Ratio 4.9 RATIO (10-20); Calcium,Total 8.9 mg/dL (8.5-10.1); Chloride 115 mmol/L (98-107); Creatinine, Serum 7.13 mg/dL (0.70-1.30); EST Glomerular Filtration Rate 8 mL/min (>60); Est Glom Filt Rate - Afr Amer 10 mL/min (>60); Glucose 74 mg/dL (74-106); Magnesium 1.9 mg/dL (1.6-2.6); Phosphorus 5.3 mg/dL (2.5-4.9); Potassium 4.6 mmol/L (3.5-5.1); Sodium Level 143 mmol/L (136-145)
--- NOTE | 2022-11-10 07:54 | PCM.PN.HOSP ---
Reason for Visit Reason for Visit: Diagnoses Enterocolitis due to Clostridium difficile, not specified as recurrent (11/03/22) Encephalopathy, unspecified (11/03/22) Other nonrheumatic aortic valve disorders (11/03/22) Pyogenic arthritis, unspecified (11/03/22) Pain in right hip (11/03/22) Acute kidney failure, unspecified (11/03/22) Diarrhea, unspecified (11/03/22) Objective Data Objective Data Vital Signs: Vital Signs Temp Pulse Resp BP Pulse Ox O2 Del Method O2 Flow Rate 98.2 F 81 18 148/64 H 95 Nasal Cannula 2 11/10/22 03:11 11/10/22 03:11 11/10/22 03:11 11/10/22 03:11 11/10/22 03:16 11/10/22 03:16 11/10/22 03:16 Oxygen Flow Rate (L/min) 2 Oxygen Delivery Method Nasal Cannula Weight: 131.7 kg Body Mass Index (BMI) 36.3 Intake & Output: Intake and Output for Last 24 Hours 11/08/22 11/09/22 11/10/22 23:59 23:59 23:59 Intake Total 2919.17 / 2919.17 3072.5 / 3072.5 1000 / 1000 Output Total 650 / 650 1150 / 1150 250 / 250 Balance 2269.17 / 2269.17 1922.5 / 1922.5 750 / 750 Lab / Micro Data 11/10/22 05:35 11/10/22 05:35 Labs: Laboratory Results - last 24 hr 11/08/22 02:45: Vitamin B12 140 L 11/10/22 05:35: WBC 12.1 H, RBC 3.27 L, Hgb 8.2 L, Hct 28.3 L, MCV 86.5, MCH 25.1 L, MCHC 29.0 L, RDW Std Deviation 56.5 H, RDW Coeff of Ghassan 17.7 H, Plt Count 318, MPV 9.8, Immature Gran % (Auto) 1.300 H, Neut % (Auto) 80.5 H, Lymph % (Auto) 6.1 L, [place] % (Auto) 9.7, Eos % (Auto) 2.2, Baso % (Auto) 0.2, Absolute Neuts (auto) 9.7 H, Absolute Lymphs (auto) 0.74 L, Nucleated RBC % 0, Sodium 143, Potassium 4.6, Chloride 115 H, Carbon Dioxide 22.0, Anion Gap 6, BUN 35 H, Creatinine 7.13 H, Estim Creat Clear Calc 13.50, Est GFR (MDRD) Af Amer 10 L, Est GFR (MDRD) Non-Af 8 L, BUN/Creatinine Ratio 4.9 L, Glucose 74, Calcium 8.9, Phosphorus 5.3 H, Magnesium 1.9 Micro: Microbiology 11/05/22 18:00 Incision/Surgical Site Gram Stain - Final 11/05/22 18:00 Incision/Surgical Site Wound Culture - Final No growth aerobically. 11/05/22 18:00 Incision/Surgical Site Anaerobic Culture - Preliminary No growth in 48 hours. 11/03/22 18:11 Blood Culture (Wb) - Anticubital Left Blood Culture - Final No growth in 5 days. 11/03/22 18:17 Blood Culture (Wb) - Anticubital Right Blood Culture - Final No growth in 5 days. 11/04/22 13:20 Fluid - Synovial (joint) Gram Stain - Final 11/04/22 13:20 Fluid - Synovial (joint) Body Fluid Culture - Preliminary No growth-Final to follow 11/04/22 13:20 Fluid - Synovial (joint) Anaerobic Culture - Preliminary No growth in 48 hours. 11/04/22 18:30 Stool C. difficile GDH Antigen & Toxins - Final Toxigenic C. difficile ABG Data ABG results: ABG 11/09/22 08:41 Specimen Type ART Sample Site L Radial pH 7.34 L Bicarbonate Actual 20.5 L Total CO2 22 Base Excess -5 L O2 Saturation 91 L O2 % 21 ABG pCO2 38.5 ABG pO2 65 L Leandro Test Positive Physical Exam Narrative GENERAL: Delirious HEENT: Atraumatic; normocephalic EYES; Anicteric, Normal Conjunctiva NECK; supple, normal thyroid, RESPIRATORY: Diminished to auscultation CARDIOVASCULAR: Regular S1 S2, GI: soft, normoactive bowel sounds, : No Renal angle tenderness; EXTREMITIES: No edema, no clubbing, MUSCULOSKELETAL: no muscle wasting NEURO: Awake; no lateralizing signs. SKIN: No Rash PSYCH; agitated Assessment & Plan Assessment/Plan (1) Septic arthritis of hip: QUALIFIERS: Laterality: right Septic arthritis organism: due to unspecified organism Qualified Code(s): M00.9 - Pyogenic arthritis, unspecified PLAN: Plan Patient is a 57-year-old gentleman with multiple comorbidities was admitted with acute intractable right hip pain. An assessment of septic joint was made, patient underwent irrigation and debridement of the right hip and washout and cultures sent. 1. Septic arthritis involving the right joint ? Patient underwent incision and drainage by general surgery on 11/06/2022 cultures sent patient managed with vancomycin and ceftriaxone. Patient cultures so far pending ? 11/10/2022 patient cultures so far no growth in 48 hours 2. Acute C. difficile colitis ? On p.o. vancomycin 3. Acute delirium ? Possibly related to patient underlying septic joint as well as medications well as his impaired kidney for. Patient was on baclofen and gabapentin discontinued patient treated symptomatically with Haldol as needed ? 11/11/2019 patient still remains delirious 4. Acute kidney injury ? Patient creatinine on admission was 0.85 has since deteriorated and 7.13. ? 11/10/2022 case was discussed with nephrology plan is for possible placement of temporary dialysis catheter for initiation of dialysis 5. 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 Patient apparently did require long-term IV antibiotics in 09/2019 6. Hypertension - Blood pressure controlled, home medications continued with dose adjustment as needed 7. GERD ? On PPI 8. History of previous DVT ? Status post [place] placement. Currently on apixaban 9. DVT prophylaxis ? On apixaban Time spent in the patient's overall evaluation,decision-making process, review of diagnostic data, adjustment of management, discussion with other providers, nursing nursing and ancillary staff involved in patient's care documentation, 50 minutes Charges/Coding Visit Charges Inpatient E&M: [id number] [facility] L3
--- NOTE | 2022-11-10 08:59 | EX.PCM.CON.S ---
Assessment & Plan Assessment/Plan (1) NYDIA (acute kidney injury): PLAN: Patient is a 57-year-old male with multiple comorbidities including history of endocarditis, osteomyelitis, right lower extremity DVT x2, and morbid obesity who is admitted for management of septic arthritis of the right hip as well as toxigenic C. difficile colitis and has now experienced acute renal failure. General surgery has been consulted for placement of a nontunneled hemodialysis catheter. Patient reportedly has dialyzed via a similar catheter to the right neck (right internal jugular vein?) earlier this summer and had spontaneous recovery of his kidney function. Patient is currently uncooperative and acutely delirious with probable metabolic encephalopathy. Given his habitus and current neurologic status a PICC line was unable to go for today as scheduled. Somewhat positively given his altered mental status, he has been unable to take Eliquis that is currently prescribed for his history of DVT. I held a conversation with patient's and with floor nursing regarding nephrology's request and believe it is most prudent to pursue catheter placement in the operating room later today. This is done to hopefully maximize patient's safety and comfort. A time of 1530 has been given from the operating room. This information has been communicated back to the progressive care unit. Written consents were obtained from the patient's spouse given his lack of capacity. HPI Consult Data Date of Consult: 11/10/22 HPI Narrative HPI Narrative: PHILIP DU, is a 57 M who presented to [facility] on 11/03/2022 with complaints of progressive right hip discomfort. He went to the operating room on 11/05/2022 after arthrocentesis was positive and was confirmed to have septic arthritis. Since this diagnosis he has been on aggressive antibiotic therapy and subsequently developed acute kidney injury. General surgery is consulted for consideration of nontunneled hemodialysis catheter placement. Beyond the above, patient is also diagnosed with C. difficile colitis Patient has an extensive past medical history inclusive of endocarditis, vertebral osteomyelitis, DVT x2 to the right lower extremity. According to patient's spouse he was just treated for septic shock with multisystem organ failure?including acute renal failure?earlier this summer at [facility]. She notes that there was complete return of renal function and under 24 hours. She recalls that he dialyzed via a right neck temporary hemodialysis catheter. Patient's nurse states that Mr. Du has been uncooperative today and the PICC line team was unable to proceed safely with their planned intervention. [facility] Medical History Abnormal LFTs Aortic valve regurgitation Cerebral edema Chronic anticoagulation Chronic back pain Chronic lower back pain Class 3 obesity Colon polyp COPD (chronic obstructive pulmonary disease) DVT of lower limb, acute Dysarthria Elevated TSH Encephalopathy acute Family history of heart disease Former smoker GERD (gastroesophageal reflux disease) Gout HCAP (healthcare-associated pneumonia) Hearing loss, left Heme positive stool Hypertension Hyperuricemia Hypoalbuminemia Internal and external bleeding hemorrhoids Iron deficiency Left atrial enlargement Leukocytosis Normocytic hypochromic anemia Obesity Peripheral vascular disease PFO (patent foramen ovale) Physical debility Polyclonal gammopathy Prediabetes Presence of arterial stent QT prolongation Rheumatoid arthritis SAH (subarachnoid hemorrhage) Septic shock Stroke/cerebrovascular accident Superficial thrombophlebitis Home Medications polyethylene glycol 3350 17 g PO/SL QHS CONSTIPATION 07/23/22 [History Last Taken 07/22/22 08:10] aluminum-mag hydroxide-simethicone 400 mg-400 mg-40 mg/5 mL oral susp (Mag-Al Plus Extra Strength) 15 ml PO Q6H PRN PRN HEARTBURN OR INDIGESTION #1 mL 09/02/22 [Rx Last Taken Unknown] acetaminophen 325 mg tablet 650 mg PO Q6H PRN pain/fever 09/15/22 [History Last Taken Unknown] ascorbic acid (vitamin C) 500 mg tablet 1,000 mg PO 1200 supplement 09/15/22 [History Last Taken Unknown] apixaban 5 mg tablet (Eliquis) 5 mg PO BID Check with primary doctor #60 tabs 10/09/22 [Rx Last Taken Unknown] baclofen 10 mg tablet 5 mg (1/2 x 10 mg) PO TID #90 tabs 10/09/22 [Rx Last Taken Unknown] clopidogrel 75 mg tablet (Plavix) 75 mg PO DAILY Check with primary doctor #30 tabs 10/09/22 [Rx Last Taken Unknown] doxazosin 1 mg tablet 1 mg PO QHS #30 tabs 10/09/22 [Rx Last Taken Unknown] fenofibrate nanocrystallized 48 mg tablet 48 mg PO DAILYCM Check with primary doctor #30 tabs 10/09/22 [Rx Last Taken Unknown] ferrous sulfate 325 mg (65 mg iron) tablet (FeroSul) 325 mg PO DAILY@1200 supplement #30 tabs 10/09/22 [Rx Last Taken Unknown] gabapentin 100 mg capsule 200 mg (2 x 100 mg) PO TIDCM #90 caps 10/09/22 [Rx Last Taken Unknown] losartan 100 mg tablet 100 mg PO DAILY #30 tabs 10/09/22 [Rx Last Taken Unknown] oxycodone 10 mg tablet 10 mg PO Q6H PRN pain 7 days #28 tabs 10/09/22 [Rx Last Taken Unknown] pantoprazole 40 mg tablet,delayed release 40 mg PO DAILY Check with primary doctor #30 tabs 10/09/22 [Rx Last Taken Unknown] potassium chloride 20 mEq tablet,extended release(part/cryst) (Klor-Con M) 20 meq PO DAILYCM #30 tabs 10/09/22 [Rx Last Taken Unknown] sennosides 8.6 mg-docusate sodium 50 mg tablet (Stool Softener-Stimulant Laxative) 2 tab PO BID #120 tabs 10/09/22 [Rx Last Taken Unknown] trazodone 100 mg tablet 100 mg PO QHS #30 tabs 10/09/22 [Rx Last Taken Unknown] venlafaxine 150 mg capsule,extended release 24 hr 150 mg PO DAILY #30 caps 10/09/22 [Rx Last Taken Unknown] oxycodone 15 mg tablet,crush resistant,extended release 12 hr (OxyContin) mg PO 11/03/22 [History Last Taken Unknown] sulfamethoxazole 800 mg-trimethoprim 160 mg tablet tab 11/03/22 [History Last Taken Unknown] amlodipine 10 mg tablet 2.5 mg PO DAILY HTN 11/04/22 [History Last Taken Unknown] Allergy/AdvReac Type Severity Reaction Status Date / Time cephalexin Allergy Shortness Verified 11/03/22 14:41 of breath Family History Other Heart disease Surgical History H/O hand surgery History of bowel resection Hx of total knee arthroplasty 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 S/P PICC central line placement Social History household members: spouse Smoking Status: Former smoker alcohol intake: current alcohol intake frequency: holidays/special occasions only substance use type: does not use caffeine: No Physical Exam Const Constitutional Narrative: Patient is alert but not oriented. He is combative and uncooperative Nutritional Appearance: obese Neck Neck Narrative: Patient with minimal neck and rather thick schaefer. There appears to be a small well-healing scar at the base of his right neck. Resp Resp Narrative: Tachypneic and agitated Lab / Micro Data 11/10/22 05:35 11/10/22 05:35 Labs: Laboratory Results - last 24 hr 11/08/22 02:45: Vitamin B12 140 L 11/10/22 05:35: WBC 12.1 H, RBC 3.27 L, Hgb 8.2 L, Hct 28.3 L, MCV 86.5, MCH 25.1 L, MCHC 29.0 L, RDW Std Deviation 56.5 H, RDW Coeff of Ghassan 17.7 H, Plt Count 318, MPV 9.8, Immature Gran % (Auto) 1.300 H, Neut % (Auto) 80.5 H, Lymph % (Auto) 6.1 L, [place] % (Auto) 9.7, Eos % (Auto) 2.2, Baso % (Auto) 0.2, Absolute Neuts (auto) 9.7 H, Absolute Lymphs (auto) 0.74 L, Nucleated RBC % 0, Sodium 143, Potassium 4.6, Chloride 115 H, Carbon Dioxide 22.0, Anion Gap 6, BUN 35 H, Creatinine 7.13 H, Estim Creat Clear Calc 13.50, Est GFR (MDRD) Af Amer 10 L, Est GFR (MDRD) Non-Af 8 L, BUN/Creatinine Ratio 4.9 L, Glucose 74, Calcium 8.9, Phosphorus 5.3 H, Magnesium 1.9 Micro: Microbiology 11/04/22 13:20 Fluid - Synovial (joint) Gram Stain - Final 11/04/22 13:20 Fluid - Synovial (joint) Body Fluid Culture - Final No growth aerobically. 11/04/22 13:20 Fluid - Synovial (joint) Anaerobic Culture - Preliminary No growth in 48 hours. 11/05/22 18:00 Incision/Surgical Site Gram Stain - Final 11/05/22 18:00 Incision/Surgical Site Wound Culture - Final No growth aerobically. 11/05/22 18:00 Incision/Surgical Site Anaerobic Culture - Preliminary No growth in 48 hours. 11/03/22 18:11 Blood Culture (Wb) - Anticubital Left Blood Culture - Final No growth in 5 days. 11/03/22 18:17 Blood Culture (Wb) - Anticubital Right Blood Culture - Final No growth in 5 days.
--- NOTE | 2022-11-10 14:03 | PN.RENAL_ITS ---
Subjective Subjective Patient awake, does not follow commands. Confused. at bedside. Objective Data Objective Data Vital Signs: Vital Signs Temp Pulse Resp BP Pulse Ox O2 Del Method O2 Flow Rate 97.6 F L 96 20 H 157/75 H 95 Nasal Cannula 2 11/10/22 12:30 11/10/22 12:30 11/10/22 12:30 11/10/22 12:30 11/10/22 12:30 11/10/22 12:30 11/10/22 12:30 Oxygen Flow Rate (L/min) 2 Oxygen Delivery Method Nasal Cannula Weight: 131.7 kg Body Mass Index (BMI) 36.3 Intake & Output: Intake and Output for Last 24 Hours 11/08/22 11/09/22 11/10/22 23:59 23:59 23:59 Intake Total 2919.17 / 2919.17 3072.5 / 3072.5 2060.0 / 2060.0 Output Total 650 / 650 1150 / 1150 400 / 400 Balance 2269.17 / 2269.17 1922.5 / 1922.5 1660.0 / 1660.0 Lab / Micro Data 11/10/22 05:35 11/10/22 05:35 Labs: Laboratory Results - last 24 hr 11/10/22 05:35: WBC 12.1 H, RBC 3.27 L, Hgb 8.2 L, Hct 28.3 L, MCV 86.5, MCH 25.1 L, MCHC 29.0 L, RDW Std Deviation 56.5 H, RDW Coeff of Ghassan 17.7 H, Plt Count 318, MPV 9.8, Immature Gran % (Auto) 1.300 H, Neut % (Auto) 80.5 H, Lymph % (Auto) 6.1 L, [place] % (Auto) 9.7, Eos % (Auto) 2.2, Baso % (Auto) 0.2, Absolute Neuts (auto) 9.7 H, Absolute Lymphs (auto) 0.74 L, Nucleated RBC % 0, Sodium 143, Potassium 4.6, Chloride 115 H, Carbon Dioxide 22.0, Anion Gap 6, BUN 35 H, Creatinine 7.13 H, Estim Creat Clear Calc 13.50, Est GFR (MDRD) Af Amer 10 L, Est GFR (MDRD) Non-Af 8 L, BUN/Creatinine Ratio 4.9 L, Glucose 74, Calcium 8.9, Phosphorus 5.3 H, Magnesium 1.9 Micro: Microbiology 11/04/22 13:20 Fluid - Synovial (joint) Gram Stain - Final 11/04/22 13:20 Fluid - Synovial (joint) Body Fluid Culture - Final No growth aerobically. 11/04/22 13:20 Fluid - Synovial (joint) Anaerobic Culture - Final No growth in 5 days. 11/05/22 18:00 Incision/Surgical Site Gram Stain - Final 11/05/22 18:00 Incision/Surgical Site Wound Culture - Final No growth aerobically. 11/05/22 18:00 Incision/Surgical Site Anaerobic Culture - Preliminary No growth in 48 hours. 11/03/22 18:11 Blood Culture (Wb) - Anticubital Left Blood Culture - Final No growth in 5 days. 11/03/22 18:17 Blood Culture (Wb) - Anticubital Right Blood Culture - Final No growth in 5 days. 11/04/22 18:30 Stool C. difficile GDH Antigen & Toxins - Final Toxigenic C. difficile Physical Exam Narrative Awake, no apparent distress. Confused. S1, S2, RRR Lung sounds clear with faint expiratory wheeze. No rhonchi or rales noted Abdomen soft, rounded, positive bowel sounds No edema Condom catheter with clear urine noted in canister Assessment & Plan Assessment/Plan (1) NYDIA (acute kidney injury): PLAN: - Nonoliguric, mildly hypovolemic acute kidney injury which is multifactorial: related to infection, dehydration due to profound diarrhea secondary to C. difficile colitis and poor oral intake, as well as IV contrast administration. He has no significant acidosis or hyperkalemia, no fluid overload. Agree with IV fluid administration. Has normal baseline creatinine. Creatinine 1.45 on admission (11/03), improved to 0.85 on 11/04 however serum creatinine has been slowly rising since 11/05. Today his creatinine is up to 7.13 mg/dL. Renal ultrasound: Right kidney 13 cm, left kidney 15 cm, no hydronephrosis, slightly hypertrophic left kidney. UA negative for blood, 30 protein. - patient heading towards needing CT TECHNOLOGIST. Discussed this with patient's , Lise yesterday and again today. Appreciate surgery team for placing non- tunneled HD catheter. familiar with dialysis as patient did need hemodialysis in August of this year at [facility]. Fortunately renal function improved and patient did not need renal placement therapy at time of hospital discharge. Plan for HD once line is placed and plan for dialysis next day as well. No UF with first HD - labs ordered for am - bps acceptable on norvasc - confusion; brain ct no acute process. possibly related to infection vs medications vs uremia. Off Neurontin and baclofen dose decreased - septic arthritis right hip, underwent I&D right hip with washout, on Ceftriaxone
[2022-11-10] MEDS: Lactated Ringers 1,000 ML 15 ML IV (15:09)
[2022-11-10] MEDS: Bupivacaine 0.25% 30 ML Vial (16:45)
--- NOTE | 2022-11-10 16:49 | NURSING ---
Called report to Nona in ICU
[2022-11-10] MEDS: Heparin 10,000 UNITS/10 ML Vial 10000 UNITS (16:56)
--- NOTE | 2022-11-10 17:09 | PCM.OPRPT ---
Report of Operation Date of Procedure: 11/10/22 Pre-Operative Diagnosis: Acute kidney injury/acute renal failure Post-Operative Diagnosis: Same Surgery/Procedure Performed:: Ultrasound-guided placement of hemodialysis catheter Description of Surgical Findings:: ? Widely patent right internal jugular vein with nearby patent external jugular vein ? Fluoroscopy showing termination of the catheter at the level of the distal SVC Surgeon: Harshad Escalona personal security specialist: None Type of Anesthesia: General/Supplemental Anesthesiologist: Franc Sterling Specimen's removed: None Estimated Blood Loss (mL): 10 Description of Procedure: After appropriate identification in the preoperative holding area the patient was brought to the operating room where they were positioned supine on the operating room table. Patient underwent a general anesthetic with a TIVA technique per anesthesia and the patient's right neck was prepped (including clipping of all intrusive hair) and draped in usual sterile fashion after confirming patency of the right internal jugular vein with bedside ultrasound. Formal timeout was conducted to confirm both the patient and the procedure. Procedure was begun with ultrasound-guided access of the right internal jugular vein using the provided finder needle and an 03 guidewire was placed. Fluoroscopy confirmed appropriate position of the wire. The insertion site was then enlarged sharply and bluntly. Next the insertion site was serially dilated and the previously?flushed catheter was threaded over the wire into place. The wire was removed and the catheter ports were each clamped and caps were applied. A completion Xray showed the catheter tip to terminate in the region of the distal SVC. Functionally, the catheter was tested with aspiration and flush of injectable saline which it did with ease. Now the catheter was locked with 3.0 mL heparinized saline (concentration 100 units/mL) each. Lastly, the catheter was secured at the tiedown points on each port with a interrupted 2-0 nylon. A standard chlorhexidine?type central line dressing was placed about the catheter and the patient was then allowed to emerge from sedation. They were taken to PACU in stable condition where a chest x-ray was obtained to verify catheter placement and to exclude pneumothorax. Grafts/Implants Used: SHAKEEL dual-lumen catheter. 11.5F X 16 cm curved. Ref [id number] Complications None Admit VTE Documentation VTE Mechan Device Prophylaxis: SCD's Procedures Hospitalists Procedures: 77043 Insert Non-tunnel CV Cath
--- NOTE | 2022-11-10 17:25 | RAD_ITS ---
STUDY: X-RAY CHEST REASON FOR EXAM: Male, 57 years old. PORT PLACEMENT -- WET READ TECHNIQUE: Single frontal view of the chest. COMPARISON: November 05, 2022 FINDINGS: New right IJ catheter terminates in the superior vena cava. No pneumothorax. The lungs are clear and expanded. There is no demonstrated pleural abnormality. Normal size heart. Normal mediastinum and daisy. Normal visualized pulmonary arteries. Normal visualized aortic arch and descending thoracic aorta. Normal visualized thoracic spine. Normal visualized ribs, clavicles, and shoulders. There is no demonstrated abnormality of the visualized soft tissue structures of the upper abdomen. RAD/CXR for Line Placement IMPRESSION: New right IJ catheter. No pneumothorax. Normal x-ray examination of the chest. Electronically Signed: Shar Goss MD at 20:13 EDT ,
--- NOTE | 2022-11-10 21:55 | PCM.HOSP.N ---
Hospitalist Note Called due to extreme agitation the patient. Patient was given Haldol 1 mg at 2030 as well as Dilaudid for pain and he still is trying to get out of bed, pulling cords and yelling out. Blood pressures are elevated with his most recent 1 being 182/69. Patient is n.p.o. We will start Precedex drip as this should help agitation and help with his blood pressure as well.
[2022-11-11] VITALS (36 sets, daily range): BP systolic 41–169; BP diastolic 50–83; PULSE 68–95; RESP 10–24; TEMP 36.2–37.2; O2SAT 88–98; BMI 39.9
[2022-11-11] MEDS: 0.9% Saline Lock 10 ML Syringe IV ×3 (01:21→09:32)
[2022-11-11 03:44] LABS: Absolute Lymphocyte Count 0.61 X10^3/uL (0.83-4.51); Absolute Neutrophil Count 10.6 X10^3/uL (2.0-7.7); Basophil# 0.04 X10^3/uL; Basophil% 0.3 % (0-1); Eosinophil# 0.28 X10^3/uL; Eosinophils% 2.2 % (0-5); Hematocrit 25.5 % (40-54); Hemoglobin 7.5 g/dL (13.0-16.5); Lymphocyte # 0.61 X10^3/ul (0.83-4.51); Lymphocyte % 4.8 % (19-41); Mean Corp Hgb Conc 29.4 g/dL (32-36); Mean Corpuscular Hgb 25.1 pg (27.0-32.0); Mean Corpuscular Volume 85.3 fL (80-94); Mean Platelet Vol. 9.5 fl (6.2-12.0); Monocyte# 1.07 X10^3/uL; Monocyte% 8.4 % (0-10); NRBC Flagged by Analyzer 0 % (0-5); Neutrophil # 10.61 X10^3/uL (2.7-7.7); Platelet Count 293 K/mm3 (150-450); RBC Distribution Width CV 17.9 % (11.6-14.6); Red Blood Count 2.99 M/mm3 (4.6-6.2); White Blood Count 12.8 K/mm3 (4.4-11.0)
[2022-11-11 04:00] LABS: Anion Gap 8 (5-15); BUN 35 mg/dL (7-18); BUN/Creat Ratio 4.8 RATIO (10-20); Calcium,Total 8.6 mg/dL (8.5-10.1); Chloride 116 mmol/L (98-107); Creatinine, Serum 7.34 mg/dL (0.70-1.30); EST Glomerular Filtration Rate 8 mL/min (>60); Est Glom Filt Rate - Afr Amer 10 mL/min (>60); Estimated Creatinine Clearance 13.11 ml/min; Glucose 80 mg/dL (74-106); Potassium 5.1 mmol/L (3.5-5.1); Sodium Level 144 mmol/L (136-145)
--- NOTE | 2022-11-11 07:16 | PN.HOSP_ITS ---
Reason for Visit Reason for Visit: Diagnoses Enterocolitis due to Clostridium difficile, not specified as recurrent ( 3) Encephalopathy, unspecified (11/03/22) Other nonrheumatic aortic valve disorders (11/03/22) Pyogenic arthritis, unspecified (11/03/22) Pain in right hip (11/03/22) Acute kidney failure, unspecified (11/03/22) Diarrhea, unspecified (11/03/22) Subjective Subjective Patient underwent placement of tunneled catheter the day prior and subsequently transferred to the intensive care unit. Patient seen currently undergoing d ialysis. Still remains delirious Objective Data Objective Data Vital Signs: Vital Signs Temp Pulse Resp BP Pulse Ox O2 Del Method O2 Flow Rate 98.6 F 71 14 154/66 H 93 Nasal Cannula 2 11/11/22 04:00 11/11/22 07:00 11/11/22 07:00 11/11/22 07:00 11/11/22 07:00 11/11/22 07:00 11/11/22 07:00 Oxygen Flow Rate (L/min) 2 Oxygen Delivery Method Nasal Cannula Weight: 145.6 kg Body Mass Index (BMI) 39.9 Intake & Output: Intake and Output for Last 24 Hours 11/09/22 11/10/22 11/11/22 23:59 23:59 23:59 Intake Total 3072.5 / 3072.5 2545.44 / 2545.44 230.05 / 230.05 Output Total 1150 / 1150 400 / 700 400 / 400 Balance 1922.5 / 1922.5 2145.44 / 1845.44 -169.95 / -169.95 Lab / Micro Data 11/11/22 03:40 11/11/22 03:40 Labs: Laboratory Results - last 24 hr 11/11/22 03:40: WBC 12.8 H, RBC 2.99 L, Hgb 7.5 L, Hct 25.5 L, MCV 85.3, MCH 25.1 L, MCHC 29.4 L, RDW Std Deviation 56.0 H, RDW Coeff of [place] 17.9 H, Plt Count 293, MPV 9.5, Immature Gran % (Auto) 1.300 H, Neut % (Auto) 83.0 H, Lymph % (Auto) 4.8 L, Iron % (Auto) 8.4, Eos % (Auto) 2.2, Baso % (Auto) 0.3, Absolute Neuts (auto) 10.6 H, Absolute Lymphs (auto) 0.61 L, Nucleated RBC % 0, Sodium 144, Potassium 5.1, Chloride 116 H, Carbon Dioxide 20.0 L, Anion Gap 8, BUN 35 H , Creatinine 7.34 H, Estim Creat Clear Calc 13.11, Est GFR (MDRD) Af Amer 10 L, Est GFR (MDRD) Non-Af 8 L, BUN/Creatinine Ratio 4.8 L, Glucose 80, Calcium 8.6, Random Vancomycin 39.0 H Micro: Microbiology 11/04/22 13:20 Fluid - Synovial (joint) Gram Stain - Final 11/04/22 13:20 Fluid - Synovial (joint) Body Fluid Culture - Final No growth aerobically. 11/04/22 13:20 Fluid - Synovial (joint) Anaerobic Culture - Final No growth in 5 days. 11/05/22 18:00 Incision/Surgical Site Gram Stain - Final 11/05/22 18:00 Incision/Surgical Site Wound Culture - Final No growth aerobically. 11/05/22 18:00 Incision/Surgical Site Anaerobic Culture - Preliminary No growth in 48 hours. 11/03/22 18:11 Blood Culture (Wb) - Anticubital Left Blood Culture - Final No growth in 5 days. 11/03/22 18:17 Blood Culture (Wb) - Anticubital Right Blood Culture - Final No growth in 5 days. 11/04/22 18:30 Stool C. difficile GDH Antigen & Toxins - Final Toxigenic C. difficile Radiography Diagnostic Testing: Radiology Impression Chest X-Ray 11/10/22 17:25 IMPRESSION: New right IJ catheter. No pneumothorax. Normal x-ray examination of the chest. Electronically Signed: Shar Goss MD at 20:13 EDT Reading Location ID and State: [facility] / [place] , Service support , Physical Exam Narrative GENERAL: Delirious HEENT: Atraumatic; normocephalic EYES; Anicteric, Normal Conjunctiva NECK; supple, normal thyroid, RESPIRATORY: Diminished to auscultation CARDIOVASCULAR: Regular S1 S2, GI: soft, normoactive bowel sounds, : No Renal angle tenderness; EXTREMITIES: No edema, no clubbing, MUSCULOSKELETAL: no muscle wasting NEURO: Awake; no lateralizing signs. SKIN: No Rash PSYCH; agitated Assessment & Plan Assessment/Plan (1) Septic arthritis of hip: QUALIFIERS: Laterality: right Septic arthritis organism: due to unspecified organism Qualified Code(s): M00.9 - Pyogenic arthritis, unspecified PLAN: Plan Patient is a 57-year-old gentleman with multiple comorbidities was admitted with acute intractable right hip pain. An assessment of septic joint was made, patient underwent irrigation and debridement of the right hip and washout and cultures sent. 1. Septic arthritis involving the right joint ? Patient underwent incision and drainage by general surgery on 11/06/2022 cultures sent patient managed with vancomycin and ceftriaxone. Patient cultures so far pending ? 11/10/2022 patient cultures so far no growth in 48 hours 2. Acute C. difficile colitis ? On p.o. vancomycin ? 11/11/2022 patient has apparently not been able to receive the p.o. vancomycin given his significant delirium and inability to take pills by mouth 3. Acute delirium ? Possibly related to patient underlying septic joint as well as medications well as his impaired kidney for. Patient was on baclofen and gabapentin discontinued patient treated symptomatically with Haldol as needed ? 11/10/2022 patient still remains delirious ? 11/11/2022 Patient underwent placement of tunneled catheter the day prior and subsequently transferred to the intensive care unit. Patient seen currently undergoing dialysis. Still remains delirious 4. Acute kidney injury ? Patient creatinine on admission was 0.85 has since deteriorated and 7.13. ? 11/10/2022 case was discussed with nephrology plan is for possible placement of temporary dialysis catheter for initiation of dialysis ? 11/11/2022 tunneled dialysis catheter placed on 11/10/2021 for initiation of dialysis 5. 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 Patient apparently did require long-term IV antibiotics in 09/2019 6. Hypertension - Blood pressure controlled, home medications continued with dose adjustment as needed 7. GERD ? On PPI 8. History of previous DVT ? Status post [place] placement. Currently on apixaban 9. DVT prophylaxis ? On apixaban Time spent in the patient's overall evaluation,decision-making process, review of diagnostic data, adjustment of management, discussion with other providers, nursing nursing and ancillary staff involved in patient's care documentation, 50 minutes Charges/Coding Visit Charges Inpatient E&M: 37974 Subs Hosp L3
--- NOTE | 2022-11-11 07:36 | CON.PCM.CC_ITS ---
Assessment & Plan Assessment/Plan (1) Encephalopathy: PLAN: Plan RECOMMENDATIONS: 1. Discontinue Precedex for now. 2. Avoid sedating medications. 3. Proceed with dialysis per nephrology recommendations. 4. Obtain follow-up ABG this morning. 5. Supplemental oxygen to maintain saturations at or above 90%. 6. Antibiotics per ID recommendations. IMPRESSIONS: 1. Encephalopathy Most likely metabolic in etiology in the setting of septic arthritis and acute kidney injury. The patient was transferred to the ICU to facilitate Precedex administration. This medication was discontinued this morning. Recommend supportive care, including hemodialysis per nephrology recommendations. I would attempt to avoid sedating medications for now. Will obtain follow-up ABG this morning and recheck liver function profile, ammonia and TSH. 2. Septic arthritis/C. difficile colitis Continue antimicrobial support per infectious diseases recommendations. 3. Acute kidney injury Most likely multifactorial in etiology in the setting of #2 and possible contrast nephropathy. Continue supportive care with hemodialysis per nephrology recommendations. Avoid nephrotoxic medications. 4. Recent history of infective endocarditis/vertebral osteomyelitis/patent foramen ovale/CVA/previous DVT Complicates care, management, recovery and prognosis. Continue home medications as indicated. This note was generated with [employer] Direct dictation software. It may contain incorrect words, spelling, and punctuation that were not noted in checking the note before signing. HPI Consult Data Date of Consult: 11/11/22 HPI Narrative Reason for Consultation: Encephalopathy HPI Narrative: The patient is a 57-year-old male, with a history as outlined below, who was initially admitted to the hospital on November 03 with concern for right septic hip arthritis. The patient has a complex medical history including a history of infective aortic valve endocarditis, history of vertebral osteomyelitis and pre vious DVT, CVA, CATHY and patent foramen ovale. The patient was evaluated by orthopedic services and ultimately underwent irrigation and debridement of the right hip on November 05. His hospital course has also been complicated by C. difficile colitis, with antimicrobial management under the discretion of infectious diseases. The patient also went on to develop acute kidney injury which was felt to be multifactorial in etiology, with nephrology following to assist with medical management. Overnight, the patient became agitated and was initially managed with Haldol. However, he continued to remain non directable and was subsequently placed on Precedex and transferred to the medical intensive care unit. The patient is demonstrating worsening metabolic derangements with a bicarbonate of 20 this morning and creatinine of 7.34. He has also been receiving Dilaudid pain medications. In light of the aforementioned, the patient underwent temporary HD line placement yesterday. Head CT was negative on November 16. There are plans to proceed with hemodialysis this morning. [facility] Medical History Abnormal LFTs Aortic valve regurgitation Cerebral edema Chronic anticoagulation Chronic back pain Chronic lower back pain Class 3 obesity Colon polyp COPD (chronic obstructive pulmonary disease) DVT of lower limb, acute Dysarthria Elevated TSH Encephalopathy acute Family history of heart disease Former smoker GERD (gastroesophageal reflux disease) Gout HCAP (healthcare-associated pneumonia) Hearing loss, left Heme positive stool Hypertension Hyperuricemia Hypoalbuminemia Internal and external bleeding hemorrhoids Iron deficiency Left atrial enlargement Leukocytosis Normocytic hypochromic anemia Obesity Peripheral vascular disease PFO (patent foramen ovale) Physical debility Polyclonal gammopathy Prediabetes Presence of arterial stent QT prolongation Rheumatoid arthritis SAH (subarachnoid hemorrhage) Septic shock Stroke/cerebrovascular accident Superficial thrombophlebitis Home Medications polyethylene glycol 3350 17 g PO/SL QHS CONSTIPATION 07/23/22 [History Last Taken 07/22/22 08:10] aluminum-mag hydroxide-simethicone 400 mg-400 mg-40 mg/5 mL oral susp (Mag-Al Plus Extra Strength) 15 ml PO Q6H PRN PRN HEARTBURN OR INDIGESTION #1 mL 09/02/22 [Rx Last Taken Unknown] acetaminophen 325 mg tablet 650 mg PO Q6H PRN pain/fever 09/15/22 [History Last Taken Unknown] ascorbic acid (vitamin C) 500 mg tablet 1,000 mg PO 1200 supplement 09/15/22 [History Last Taken Unknown] apixaban 5 mg tablet (Eliquis) 5 mg PO BID Check with primary doctor #60 tabs 10/09/22 [Rx Last Taken Unknown] baclofen 10 mg tablet 5 mg (1/2 x 10 mg) PO TID #90 tabs 10/09/22 [Rx Last Taken Unknown] clopidogrel 75 mg tablet (Plavix) 75 mg PO DAILY Check with primary doctor #30 tabs 10/09/22 [Rx Last Taken Unknown] doxazosin 1 mg tablet 1 mg PO QHS #30 tabs 10/09/22 [Rx Last Taken Unknown] fenofibrate nanocrystallized 48 mg tablet 48 mg PO DAILYCM Check with primary doctor #30 tabs 10/09/22 [Rx Last Taken Unknown] ferrous sulfate 325 mg (65 mg iron) tablet (FeroSul) 325 mg PO DAILY@1200 supplement #30 tabs 10/09/22 [Rx Last Taken Unknown] gabapentin 100 mg capsule 200 mg (2 x 100 mg) PO TIDCM #90 caps 10/09/22 [Rx Last Taken Unknown] losartan 100 mg tablet 100 mg PO DAILY #30 tabs 10/09/22 [Rx Last Taken Unknown] oxycodone 10 mg tablet 10 mg PO Q6H PRN pain 7 days #28 tabs 10/09/22 [Rx Last Taken Unknown] pantoprazole 40 mg tablet,delayed release 40 mg PO DAILY Check with primary doctor #30 tabs 10/09/22 [Rx Last Taken Unknown] potassium chloride 20 mEq tablet,extended release(part/cryst) (Klor-Con M) 20 meq PO DAILYCM #30 tabs 10/09/22 [Rx Last Taken Unknown] sennosides 8.6 mg-docusate sodium 50 mg tablet (Stool Softener-Stimulant Laxative) 2 tab PO BID #120 tabs 10/09/22 [Rx Last Taken Unknown] trazodone 100 mg tablet 100 mg PO QHS #30 tabs 10/09/22 [Rx Last Taken Unknown] venlafaxine 150 mg capsule,extended release 24 hr 150 mg PO DAILY #30 caps 10/09/22 [Rx Last Taken Unknown] oxycodone 15 mg tablet,crush resistant,extended release 12 hr (OxyContin) mg PO 11/03/22 [History Last Taken Unknown] sulfamethoxazole 800 mg-trimethoprim 160 mg tablet tab 11/03/22 [History Last Taken Unknown] amlodipine 10 mg tablet 2.5 mg PO DAILY HTN 11/04/22 [History Last Taken Unknown] Allergy/AdvReac Type Severity Reaction Status Date / Time cephalexin Allergy Shortness Verified 11/03/22 14:41 of breath Family History Other Heart disease Surgical History H/O hand surgery History of bowel resection Hx of total knee arthroplasty 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 S/P PICC central line placement Social History household members: spouse Smoking Status: Former smoker alcohol intake: current alcohol intake frequency: holidays/special occasions only substance use type: does not use caffeine: No ROS Review of Systems ROS Unobtainable: due to mental status Physical Exam Const Constitutional Narrative: Currently nonresponsive to verbal stimulation. General Appearance: lethargic and ill appearing HEENT normocephalic and head/scalp atraumatic Eyes PERRL and EOMs intact bilaterally Neck supple Neck Narrative: Temporary HD line in place. General: trachea midline Chest inspection of chest normal Resp Effort and Inspection: tachypneic Auscultation: diminished lung sounds Cardio regular rate and regular rhythm GI normal to inspection, nondistended, normoactive bowel sounds Extremity no clubbing, cyanosis or edema Skin no rashes or lesions noted Neuro Neuro Narrative: The patient is quite somnolent at the present time on Precedex. Psych Mood & Affect: flat affect Lab / Micro Data 11/11/22 03:40 11/11/22 03:40 Labs: Laboratory Results - last 24 hr 11/11/22 03:40: WBC 12.8 H, RBC 2.99 L, Hgb 7.5 L, Hct 25.5 L, MCV 85.3, MCH 25.1 L, MCHC 29.4 L, RDW Std Deviation 56.0 H, RDW Coeff of Ghassan 17.9 H, Plt Count 293, MPV 9.5, Immature Gran % (Auto) 1.300 H, Neut % (Auto) 83.0 H, Lymph % (Auto) 4.8 L, [place] % (Auto) 8.4, Eos % (Auto) 2.2, Baso % (Auto) 0.3, Absolute Neuts (auto) 10.6 H, Absolute Lymphs (auto) 0.61 L, Nucleated RBC % 0, Sodium 144, Potassium 5.1, Chloride 116 H, Carbon Dioxide 20.0 L, Anion Gap 8, BUN 35 H , Creatinine 7.34 H, Estim Creat Clear Calc 13.11, Est GFR (MDRD) Af Amer 10 L, Est GFR (MDRD) Non-Af 8 L, BUN/Creatinine Ratio 4.8 L, Glucose 80, Calcium 8.6, Random Vancomycin 39.0 H Micro: Microbiology 11/04/22 13:20 Fluid - Synovial (joint) Gram Stain - Final 11/04/22 13:20 Fluid - Synovial (joint) Body Fluid Culture - Final No growth aerobically. 11/04/22 13:20 Fluid - Synovial (joint) Anaerobic Culture - Final No growth in 5 days. Radiology Impression Chest X-Ray 11/10/22 17:25 IMPRESSION: New right IJ catheter. No pneumothorax. Normal x-ray examination of the chest. Electronically Signed: Shar Goss MD at 20:13 EDT , Charges/Coding Visit Charges Inpatient E&M: 74563 Init Hosp L3
--- NOTE | 2022-11-11 07:36 | PN.SURG_ITS ---
Objective Data Objective Data Vital Signs: Vital Signs Temp Pulse Resp BP Pulse Ox O2 Del Method O2 Flow Rate 98.6 F 71 14 154/66 H 93 Nasal Cannula 2 11/11/22 04:00 11/11/22 07:00 11/11/22 07:00 11/11/22 07:00 11/11/22 07:00 11/11/22 07:00 11/11/22 07:00 Oxygen Flow Rate (L/min) 2 Oxygen Delivery Method Nasal Cannula Weight: 320 lb 15.889 oz Body Mass Index (BMI) 39.9 Intake & Output: Intake and Output for Last 24 Hours 11/09/22 11/10/22 11/11/22 23:59 23:59 23:59 Intake Total 3072.5 / 3072.5 2545.44 / 2545.44 237.11 / 237.11 Output Total 1150 / 1150 400 / 700 400 / 400 Balance 1922.5 / 1922.5 2145.44 / 1845.44 -162.89 / -162.89 Lab / Micro Data 11/11/22 03:40 11/11/22 03:40 Labs: Laboratory Results - last 24 hr 11/11/22 03:40: WBC 12.8 H, RBC 2.99 L, Hgb 7.5 L, Hct 25.5 L, MCV 85.3, MCH 25.1 L, MCHC 29.4 L, RDW Std Deviation 56.0 H, RDW Coeff of Ghassan 17.9 H, Plt Count 293, MPV 9.5, Immature Gran % (Auto) 1.300 H, Neut % (Auto) 83.0 H, Lymph % (Auto) 4.8 L, [place] % (Auto) 8.4, Eos % (Auto) 2.2, Baso % (Auto) 0.3, Absolute Neuts (auto) 10.6 H, Absolute Lymphs (auto) 0.61 L, Nucleated RBC % 0, Sodium 144, Potassium 5.1, Chloride 116 H, Carbon Dioxide 20.0 L, Anion Gap 8, BUN 35 H , Creatinine 7.34 H, Estim Creat Clear Calc 13.11, Est GFR (MDRD) Af Amer 10 L, Est GFR (MDRD) Non-Af 8 L, BUN/Creatinine Ratio 4.8 L, Glucose 80, Calcium 8.6, Random Vancomycin 39.0 H Micro: Microbiology 11/04/22 13:20 Fluid - Synovial (joint) Gram Stain - Final 11/04/22 13:20 Fluid - Synovial (joint) Body Fluid Culture - Final No growth aerobically. 11/04/22 13:20 Fluid - Synovial (joint) Anaerobic Culture - Final No growth in 5 days. 11/05/22 18:00 Incision/Surgical Site Gram Stain - Final 11/05/22 18:00 Incision/Surgical Site Wound Culture - Final No growth aerobically. 11/05/22 18:00 Incision/Surgical Site Anaerobic Culture - Preliminary No growth in 48 hours. 11/03/22 18:11 Blood Culture (Wb) - Anticubital Left Blood Culture - Final No growth in 5 days. 11/03/22 18:17 Blood Culture (Wb) - Anticubital Right Blood Culture - Final No growth in 5 days. 11/04/22 18:30 Stool C. difficile GDH Antigen & Toxins - Final Toxigenic C. difficile Radiography Diagnostic Testing: Radiology Impression Chest X-Ray 11/10/22 17:25 IMPRESSION: New right IJ catheter. No pneumothorax. Normal x-ray examination of the chest. Electronically Signed: Shar Goss MD at 20:13 EDT ,
[2022-11-11 08:17] LABS: Allen Test Positive; Base Excess -8 mmol/L (-2 to +2); Bicarbonate 19.3 mmol/L (22-26); Blood Gas Specimen Type ART; O2 Delivery Device Cannula; PO2 69 mmHG (75-100); SITE R Radial; SO2 91 % (95-99); Total Carbon Dioxide 21 mmol/L; pCO2 41.7 mmHg (35-45); pH 7.27 (7.35-7.45)
[2022-11-11 08:32] LABS: AST(SGOT) 11 U/L (15-37); Alanine Aminotransfer ALT/SGPT 14 U/L (16-61); Alkaline Phosphatase 78 U/L (45-117); Bilirubin, Direct 0.05 mg/dL (0.00-0.30); Globulin 4.3 g/dL (2.2-4.2); Protein, Total 6.3 g/dL (6.4-8.2); Thyroid Stim Hormone (TSH) 1.69 uIU/mL (0.358-3.74)
[2022-11-11] MEDS: 0.9% Normal Saline 1,000 ML IV.SOLN. 1000 ML OPERA.SITE (08:32)
[2022-11-11] MEDS: PureFlow B 2K Dialysis Soln 1 BAG 6 BAG PF (08:34)
[2022-11-11 09:12] LABS: Hepatitis B Surface Antigen Non-Reactive (Nonreactive)
[2022-11-11] MEDS: TITRATION PARAMETER CHANGE 1 EACH IV (09:18)
--- NOTE | 2022-11-11 10:44 | PCM.PN.REN ---
Subjective Subjective Moved to ICU due to worsening confusion/combative and on Precedex drip. Patient awake. Objective Data Objective Data Vital Signs: Vital Signs Temp Pulse Resp BP Pulse Ox O2 Del Method O2 Flow Rate 98.1 F 71 12 146/70 H 93 Nasal Cannula 4 11/11/22 09:56 11/11/22 09:56 11/11/22 09:56 11/11/22 09:56 11/11/22 09:56 11/11/22 09:56 11/11/22 09:56 Oxygen Flow Rate (L/min) 4 Oxygen Delivery Method Nasal Cannula Weight: 145.5 kg Body Mass Index (BMI) 39.9 Intake & Output: Intake and Output for Last 24 Hours 11/09/22 11/10/22 11/11/22 23:59 23:59 23:59 Intake Total 3072.5 / 3072.5 2545.44 / 2545.44 520.38 / 520.38 Output Total 1150 / 1150 400 / 700 400 / 400 Balance 1922.5 / 1922.5 2145.44 / 1845.44 120.38 / 120.38 Lab / Micro Data 11/11/22 03:40 11/11/22 03:40 Labs: Laboratory Results - last 24 hr 11/11/22 03:40: WBC 12.8 H, RBC 2.99 L, Hgb 7.5 L, Hct 25.5 L, MCV 85.3, MCH 25.1 L, MCHC 29.4 L, RDW Std Deviation 56.0 H, RDW Coeff of Ghassan 17.9 H, Plt Count 293, MPV 9.5, Immature Gran % (Auto) 1.300 H, Neut % (Auto) 83.0 H, Lymph % (Auto) 4.8 L, [place] % (Auto) 8.4, Eos % (Auto) 2.2, Baso % (Auto) 0.3, Absolute Neuts (auto) 10.6 H, Absolute Lymphs (auto) 0.61 L, Nucleated RBC % 0, Sodium 144, Potassium 5.1, Chloride 116 H, Carbon Dioxide 20.0 L, Anion Gap 8, BUN 35 H, Creatinine 7.34 H, Estim Creat Clear Calc 13.11, Est GFR (MDRD) Af Amer 10 L, Est GFR (MDRD) Non-Af 8 L, BUN/Creatinine Ratio 4.8 L, Glucose 80, Calcium 8.6, Total Bilirubin 0.30, Direct Bilirubin 0.05, AST 11 L, ALT 14 L, Alkaline Phosphatase 78, Total Protein 6.3 L, Albumin 2.0 L, Globulin 4.3 H, TSH 1.69, Random Vancomycin 39.0 H 11/11/22 08:15: Ammonia 29.0, Hep Bs Antigen Non-Reactive Micro: Microbiology 11/05/22 18:00 Incision/Surgical Site Gram Stain - Final 11/05/22 18:00 Incision/Surgical Site Wound Culture - Final No growth aerobically. 11/05/22 18:00 Incision/Surgical Site Anaerobic Culture - Final No growth in 5 days. 11/04/22 13:20 Fluid - Synovial (joint) Gram Stain - Final 11/04/22 13:20 Fluid - Synovial (joint) Body Fluid Culture - Final No growth aerobically. 11/04/22 13:20 Fluid - Synovial (joint) Anaerobic Culture - Final No growth in 5 days. 11/03/22 18:11 Blood Culture (Wb) - Anticubital Left Blood Culture - Final No growth in 5 days. 11/03/22 18:17 Blood Culture (Wb) - Anticubital Right Blood Culture - Final No growth in 5 days. 11/04/22 18:30 Stool C. difficile GDH Antigen & Toxins - Final Toxigenic C. difficile ABG Data ABG results: ABG 11/11/22 08:14 Specimen Type ART Sample Site R Radial pH 7.27 L Bicarbonate Actual 19.3 L Total CO2 21 Base Excess -8 L O2 Saturation 91 L ABG pCO2 41.7 ABG pO2 69 L Leandro Test Positive O2 Delivery Device Cannula Liter Flow 2.0 Radiography Diagnostic Testing: Radiology Impression Chest X-Ray 11/10/22 17:25 IMPRESSION: New right IJ catheter. No pneumothorax. Normal x-ray examination of the chest. Electronically Signed: Shar Goss MD at 20:13 EDT , Physical Exam Narrative Alert, awake, no apparent distress S1, S2, RRR Lung sounds clear anteriorly Abdomen soft rounded No edema Temporary hemodialysis catheter right IJ dressing clean, dry and intact Assessment & Plan Assessment/Plan (1) NYDIA (acute kidney injury): PLAN: - Nonoliguric, mildly hypovolemic acute kidney injury which is multifactorial: related to infection, dehydration due to profound diarrhea secondary to C. difficile colitis and poor oral intake, IV contrast administration and to note vanco trough on 11/07 >50. He has no significant acidosis or hyperkalemia, no fluid overload. Had been on IVF. Has normal baseline creatinine. Creatinine 1.45 on admission (11/03), improved to 0.85 on 11/04 however serum creatinine has been slowly rising since 11/05. Today his creatinine is up to 7.34 mg/dL. Renal ultrasound: Right kidney 13 cm, left kidney 15 cm, no hydronephrosis, slightly hypertrophic left kidney. UA negative for blood, 30 protein. 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 Appreciate surgery team for placing non-tunneled HD catheter. familiar with dialysis as patient did need hemodialysis in August of this year at [facility]. Fortunately renal function improved and patient did not need renal placement therapy at time of hospital discharge. - 1st HD 11/11 with no UF. Plan for HD again tomorrow likely no UF. Monitor for renal recovery - labs ordered for am - bps acceptable on norvasc - confusion; brain ct no acute process. possibly related to infection vs medications vs uremia. Off Neurontin and baclofen dose decreased - septic arthritis right hip, underwent I&D right hip with washout, on Ceftriaxone. Recommend off IV vanco for now. Getting oral vanco for cdiff.
[2022-11-11] MEDS: Vancomycin 125 MG/5 ML Susp PO.SYRINGE PO ×2 (11:32→17:58)
[2022-11-11] MEDS: Haloperidol Lactate 5 MG/ML Vial 3 MG IV (11:33)
--- NOTE | 2022-11-11 13:30 | PN.ID_ITS ---
Physical Exam Narrative Moved to icu, still confused, able to take one dose po vanc today per nursing Const Orientation / Consciousness: lethargic Resp normal air movement and clear to auscultation bilaterally Cardio regular rate and regular rhythm GI soft to palpation and non-tender; Negative for non-distended Skin no rashes or lesions noted ID ID: Route of nutrition/ use of supplements: [] Nutritional Intake: [] IV Site: [] [place] Catheter: [] Assessment & Plan Assessment/Plan (1) Septic arthritis of hip: QUALIFIERS: Septic arthritis organism: due to unspecified organism Laterality: right Qualified Code(s): M00.9 - Pyogenic arthritis, unspecified PLAN: 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 Reviewed [facility] and [facility] records, saw Dr. Morgan with ID 3 weeks ago, plan was for bactrim for one year. Now with new R hip septic arthritis. Aspiration 11/04 and OR 11/[address] Hemphill so far with negative gram stain and culture. Bcx x2 11/03 remain neg. On vanc/zosyn. Whipple's can very rarely cause a septic arthritis, so spoke with path lab and ordered send out test for pcr of fluid sample. 11/06/22 changed abx to vanc/ceftriaxone 2gm q12h to cover for normal septic arthritis skin eduardo as well as potential relapse of Whipple. cdiff colitis - on po vanc. If unable to get po vanc in, alternative would be iv flagyl 500mg q8h new NYDIA - neph following, vanc level high. Vanc on hold. Will follow, d/w nursing (2) NYDIA (acute kidney injury): (3) Encephalopathy: (4) C. difficile colitis:
[2022-11-11] MEDS: Ferrous Sulfate 325 MG Tablet PO (14:00)
[2022-11-11] MEDS: Ascorbic Acid 500 MG Tablet 1000 MG PO (14:18)
[2022-11-11] MEDS: Acetaminophen 500 MG Tablet 1000 MG PO ×2 (15:51→21:09)
[2022-11-11] MEDS: Baclofen 10 MG Tablet 5 MG PO ×2 (15:51→21:08)
[2022-11-11] MEDS: Menthol/Lanolin/Calamine/Znox 113 GM Tube 1 APPLIC TOPICAL (21:05)
[2022-11-11] MEDS: Doxazosin 1 MG Tablet PO (21:06)
[2022-11-11] MEDS: traZODone 100 MG Tablet PO (21:07)
[2022-11-11] MEDS: APIXABAN 5 MG TABLET PO (21:08)
[2022-11-12] VITALS (26 sets, daily range): BP systolic 73–210; BP diastolic 45–80; PULSE 60–83; RESP 10–18; TEMP 35.8–37.1; O2SAT 2–100; BMI 40.8; BMI 40.6
[2022-11-12] MEDS: Vancomycin 125 MG/5 ML Susp PO.SYRINGE PO ×4 (00:20→17:37)
[2022-11-12 04:12] LABS: Absolute Lymphocyte Count 0.88 X10^3/uL (0.83-4.51); Absolute Neutrophil Count 8.6 X10^3/uL (2.0-7.7); Basophil# 0.03 X10^3/uL; Basophil% 0.3 % (0-1); Eosinophil# 0.29 X10^3/uL; Eosinophils% 2.6 % (0-5); Hematocrit 24.6 % (40-54); Hemoglobin 7.3 g/dL (13.0-16.5); Lymphocyte # 0.88 X10^3/ul (0.83-4.51); Lymphocyte % 7.9 % (19-41); Mean Corp Hgb Conc 29.7 g/dL (32-36); Mean Corpuscular Hgb 25.3 pg (27.0-32.0); Mean Corpuscular Volume 85.4 fL (80-94); Mean Platelet Vol. 9.6 fl (6.2-12.0); Monocyte# 1.11 X10^3/uL; NRBC Flagged by Analyzer 0 % (0-5); Neutrophil # 8.58 X10^3/uL (2.7-7.7); Neutrophil % 77.2 % (47-70); Platelet Count 305 K/mm3 (150-450); RBC Distribution Width CV 17.8 % (11.6-14.6); Red Blood Count 2.88 M/mm3 (4.6-6.2); White Blood Count 11.1 K/mm3 (4.4-11.0)
[2022-11-12 04:31] LABS: Anion Gap 4 (5-15); BUN 35 mg/dL (7-18); BUN/Creat Ratio 5.3 RATIO (10-20); Calcium,Total 8.5 mg/dL (8.5-10.1); Chloride 113 mmol/L (98-107); Creatinine, Serum 6.56 mg/dL (0.70-1.30); EST Glomerular Filtration Rate 9 mL/min (>60); Est Glom Filt Rate - Afr Amer 11 mL/min (>60); Estimated Creatinine Clearance 14.67 ml/min; Glucose 107 mg/dL (74-106); Potassium 4.5 mmol/L (3.5-5.1); Sodium Level 143 mmol/L (136-145)
[2022-11-12] MEDS: Menthol/Lanolin/Calamine/Znox 113 GM Tube 1 APPLIC TOPICAL ×3 (06:37→22:30)
[2022-11-12] MEDS: Baclofen 10 MG Tablet 5 MG PO ×3 (06:39→22:31)
[2022-11-12] MEDS: Acetaminophen 500 MG Tablet 1000 MG PO ×3 (06:39→22:38)
--- NOTE | 2022-11-12 06:45 | PCM.PN.INT ---
Assessment & Plan Assessment/Plan (1) Encephalopathy: PLAN: Plan RECOMMENDATIONS: 1. Continue to avoid sedating medications, if feasible. 2. Continue dialysis support per nephrology recommendations. 3. Antibiotics per infectious diseases recommendations. 4. Encourage incentive spirometer use and mobilize patient as tolerated. 5. The patient is medically stable for transfer out of the intensive care unit. 6. We will sign off from a critical care perspective. Please call with any additional questions. IMPRESSIONS: 1. Encephalopathy Most likely metabolic in etiology in the setting of septic arthritis and acute kidney injury. The patient was transferred to the ICU to facilitate Precedex administration. The medication was ultimately discontinued and the patient underwent dialysis, with subsequent improvement in his mentation. I would plan to continue to avoid sedating medications, if feasible. Overall, however, the patient is clinically improved. 2. Septic arthritis/C. difficile colitis Continue antimicrobial support per infectious diseases recommendations. 3. Acute kidney injury Most likely multifactorial in etiology in the setting of #2 and possible contrast nephropathy. Continue supportive care with hemodialysis per nephrology recommendations. Avoid nephrotoxic medications. 4. Recent history of infective endocarditis/vertebral osteomyelitis/patent foramen ovale/CVA/previous DVT Complicates care, management, recovery and prognosis. Continue home medications as indicated. This note was generated with [employer] dictation software. It may contain incorrect words, spelling, and punctuation that were not noted in checking the note before signing. Subjective Subjective The patient was seen and examined at the bedside this morning. Events from the last 24 hours have been reviewed. The patient is currently afebrile, hemodynamically stable and maintaining appropriate oxygen saturations on room air. The patient did well overnight from a nursing perspective. He never had to be restarted on Precedex. He is much more alert and cooperative this morning. He did tolerate dialysis yesterday. Objective Data Objective Data The patient's most recent lab work, culture data and imaging studies have all been personally reviewed. Vital Signs: Vital Signs Temp Pulse Resp BP Pulse Ox O2 Del Method O2 Flow Rate 98.7 F 74 12 125/51 H 100 Room Air 4 11/12/22 05:00 11/12/22 05:00 11/12/22 05:00 11/12/22 05:00 11/12/22 05:00 11/12/22 05:00 11/12/22 04:00 Oxygen Flow Rate (L/min) 4 Oxygen Delivery Method Room Air Weight: 326 lb 11.601 oz Body Mass Index (BMI) 40.8 Intake & Output: Intake and Output for Last 24 Hours 11/10/22 11/11/22 11/12/22 23:59 23:59 23:59 Intake Total 2545.44 / 2545.44 570.38 / 630.38 110 / 110 Output Total 400 / 700 1050 / 1050 Balance 2145.44 / 1845.44 -479.62 / -419.62 110 / 110 Lab / Micro Data Attestation: I reviewed the patient's lab results. 11/12/22 03:54 11/12/22 03:54 Labs: Laboratory Results - last 24 hr 11/11/22 03:40: Total Bilirubin 0.30, Direct Bilirubin 0.05, AST 11 L, ALT 14 L, Alkaline Phosphatase 78, Total Protein 6.3 L, Albumin 2.0 L, Globulin 4.3 H, TSH 1.69 11/11/22 08:15: Ammonia 29.0, Hep Bs Antigen Non-Reactive 11/12/22 03:54: WBC 11.1 H, RBC 2.88 L, Hgb 7.3 L, Hct 24.6 L, MCV 85.4, MCH 25.3 L, MCHC 29.7 L, RDW Std Deviation 56.0 H, RDW Coeff of Ghassan 17.8 H, Plt Count 305, MPV 9.6, Immature Gran % (Auto) 2.000 H, Neut % (Auto) 77.2 H, Lymph % (Auto) 7.9 L, [place] % (Auto) 10.0, Eos % (Auto) 2.6, Baso % (Auto) 0.3, Absolute Neuts (auto) 8.6 H, Absolute Lymphs (auto) 0.88, Nucleated RBC % 0, Sodium 143, Potassium 4.5, Chloride 113 H, Carbon Dioxide 26.0, Anion Gap 4 L, BUN 35 H, Creatinine 6.56 H, Estim Creat Clear Calc 14.67, Est GFR (MDRD) Af Amer 11 L, Est GFR (MDRD) Non-Af 9 L, BUN/Creatinine Ratio 5.3 L, Glucose 107 H, Calcium 8.5 Micro: Microbiology 11/05/22 18:00 Incision/Surgical Site Gram Stain - Final 11/05/22 18:00 Incision/Surgical Site Wound Culture - Final No growth aerobically. 11/05/22 18:00 Incision/Surgical Site Anaerobic Culture - Final No growth in 5 days. 11/04/22 13:20 Fluid - Synovial (joint) Gram Stain - Final 11/04/22 13:20 Fluid - Synovial (joint) Body Fluid Culture - Final No growth aerobically. 11/04/22 13:20 Fluid - Synovial (joint) Anaerobic Culture - Final No growth in 5 days. 11/03/22 18:11 Blood Culture (Wb) - Anticubital Left Blood Culture - Final No growth in 5 days. 11/03/22 18:17 Blood Culture (Wb) - Anticubital Right Blood Culture - Final No growth in 5 days. 11/04/22 18:30 Stool C. difficile GDH Antigen & Toxins - Final Toxigenic C. difficile ABG Data ABG results: ABG 11/11/22 08:14 Specimen Type ART Sample Site R Radial pH 7.27 L Bicarbonate Actual 19.3 L Total CO2 21 Base Excess -8 L O2 Saturation 91 L ABG pCO2 41.7 ABG pO2 69 L Leandro Test Positive O2 Delivery Device Cannula Liter Flow 2.0 Physical Exam Const alert and no apparent distress General Appearance: cooperative HEENT normocephalic and head/scalp atraumatic Eyes PERRL and EOMs intact bilaterally Neck supple Neck Narrative: Temporary HD line in place. General: trachea midline Chest inspection of chest normal Resp Auscultation: diminished lung sounds; Negative for rales, rhonchi or wheezes Cardio regular rate and regular rhythm GI normal to inspection, nondistended, normoactive bowel sounds Extremity no clubbing, cyanosis or edema Skin no rashes or lesions noted Neuro CN's II-XII intact bilaterally and no focal motor deficits Psych Mood & Affect: flat affect Charges/Coding Visit Charges Inpatient E&M: 35264 Subs Hosp L2
--- NOTE | 2022-11-12 07:56 | PCM.PN.HOSP ---
Reason for Visit Reason for Visit: Diagnoses Enterocolitis due to Clostridium difficile, not specified as recurrent (11/03/22) Encephalopathy, unspecified (11/03/22) Other nonrheumatic aortic valve disorders (11/03/22) Pyogenic arthritis, unspecified (11/03/22) Pain in right hip (11/03/22) Acute kidney failure, unspecified (11/03/22) Diarrhea, unspecified (11/03/22) Subjective Subjective Patient seen level of sensorium markedly improved following initiation of dialysis. Plan is for patient to be transferred back to the [facility] Objective Data Objective Data Vital Signs: Vital Signs Temp Pulse Resp BP Pulse Ox O2 Del Method O2 Flow Rate 97.7 F L 80 10 L 157/60 H 97 Nasal Cannula 4 11/12/22 06:00 11/12/22 06:00 11/12/22 06:00 11/12/22 06:00 11/12/22 06:00 11/12/22 06:00 11/12/22 04:00 Oxygen Flow Rate (L/min) 4 Oxygen Delivery Method Nasal Cannula Weight: 148.2 kg Body Mass Index (BMI) 40.8 Intake & Output: Intake and Output for Last 24 Hours 11/10/22 11/11/22 11/12/22 23:59 23:59 23:59 Intake Total 2545.44 / 2545.44 570.38 / 630.38 110 / 110 Output Total 400 / 700 1050 / 1050 100 / 100 Balance 2145.44 / 1845.44 -479.62 / -419.62 Lab / Micro Data 11/12/22 03:54 11/12/22 03:54 Labs: Laboratory Results - last 24 hr 11/11/22 03:40: Total Bilirubin 0.30, Direct Bilirubin 0.05, AST 11 L, ALT 14 L, Alkaline Phosphatase 78, Total Protein 6.3 L, Albumin 2.0 L, Globulin 4.3 H, TSH 1.69 11/11/22 08:15: Ammonia 29.0, Hep Bs Antigen Non-Reactive 11/12/22 03:54: WBC 11.1 H, RBC 2.88 L, Hgb 7.3 L, Hct 24.6 L, MCV 85.4, MCH 25.3 L, MCHC 29.7 L, RDW Std Deviation 56.0 H, RDW Coeff of Ghassan 17.8 H, Plt Count 305, MPV 9.6, Immature Gran % (Auto) 2.000 H, Neut % (Auto) 77.2 H, Lymph % (Auto) 7.9 L, [place] % (Auto) 10.0, Eos % (Auto) 2.6, Baso % (Auto) 0.3, Absolute Neuts (auto) 8.6 H, Absolute Lymphs (auto) 0.88, Nucleated RBC % 0, Sodium 143, Potassium 4.5, Chloride 113 H, Carbon Dioxide 26.0, Anion Gap 4 L, BUN 35 H, Creatinine 6.56 H, Estim Creat Clear Calc 14.67, Est GFR (MDRD) Af Amer 11 L, Est GFR (MDRD) Non-Af 9 L, BUN/Creatinine Ratio 5.3 L, Glucose 107 H, Calcium 8.5 Micro: Microbiology 11/05/22 18:00 Incision/Surgical Site Gram Stain - Final 11/05/22 18:00 Incision/Surgical Site Wound Culture - Final No growth aerobically. 11/05/22 18:00 Incision/Surgical Site Anaerobic Culture - Final No growth in 5 days. 11/04/22 13:20 Fluid - Synovial (joint) Gram Stain - Final 11/04/22 13:20 Fluid - Synovial (joint) Body Fluid Culture - Final No growth aerobically. 11/04/22 13:20 Fluid - Synovial (joint) Anaerobic Culture - Final No growth in 5 days. 11/03/22 18:11 Blood Culture (Wb) - Anticubital Left Blood Culture - Final No growth in 5 days. 11/03/22 18:17 Blood Culture (Wb) - Anticubital Right Blood Culture - Final No growth in 5 days. 11/04/22 18:30 Stool C. difficile GDH Antigen & Toxins - Final Toxigenic C. difficile ABG Data ABG results: ABG 11/11/22 08:14 Specimen Type ART Sample Site R Radial pH 7.27 L Bicarbonate Actual 19.3 L Total CO2 21 Base Excess -8 L O2 Saturation 91 L ABG pCO2 41.7 ABG pO2 69 L Leandro Test Positive O2 Delivery Device Cannula Liter Flow 2.0 Physical Exam Narrative GENERAL: Delirious HEENT: Atraumatic; normocephalic EYES; Anicteric, Normal Conjunctiva NECK; supple, normal thyroid, RESPIRATORY: Diminished to auscultation CARDIOVASCULAR: Regular S1 S2, GI: soft, normoactive bowel sounds, : No Renal angle tenderness; EXTREMITIES: No edema, no clubbing, MUSCULOSKELETAL: no muscle wasting NEURO: Awake; no lateralizing signs. SKIN: No Rash PSYCH; agitated Assessment & Plan Assessment/Plan (1) Septic arthritis of hip: QUALIFIERS: Laterality: right Septic arthritis organism: due to unspecified organism Qualified Code(s): M00.9 - Pyogenic arthritis, unspecified PLAN: Plan Patient is a 57-year-old gentleman with multiple comorbidities was admitted with acute intractable right hip pain. An assessment of septic joint was made, patient underwent irrigation and debridement of the right hip and washout and cultures sent. 1. Septic arthritis involving the right joint ? Patient underwent incision and drainage by general surgery on 11/06/2022 cultures sent patient managed with vancomycin and ceftriaxone. Patient cultures so far pending ? 11/10/2022 patient cultures so far no growth in 48 hours 2. Acute C. difficile colitis ? On p.o. vancomycin ? 11/11/2022 patient has apparently not been able to receive the p.o. vancomycin given his significant delirium and inability to take pills by mouth ? 11/12/2022 patient resumed taking p.o. vancomycin following improvement in his level of sensorium 3. Acute delirium ? Possibly related to patient underlying septic joint as well as medications well as his impaired kidney for. Patient was on baclofen and gabapentin discontinued patient treated symptomatically with Haldol as needed ? 11/10/2022 patient still remains delirious ? 11/11/2022 Patient underwent placement of tunneled catheter the day prior and subsequently transferred to the intensive care unit. Patient seen currently undergoing dialysis. Still remains delirious ? 11/12/2022 patient level of sensorium improved 4. Acute kidney injury ? Patient creatinine on admission was 0.85 has since deteriorated and 7.13. ? 11/10/2022 case was discussed with nephrology plan is for possible placement of temporary dialysis catheter for initiation of dialysis ? 11/11/2022 tunneled dialysis catheter placed on 11/10/2021 for initiation of dialysis ? 11/12/2022 patient having his second session of dialysis 5. 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 Patient apparently did require long-term IV antibiotics in 09/2019 6. Hypertension - Blood pressure controlled, home medications continued with dose adjustment as needed 7. GERD ? On PPI 8. History of previous DVT ? Status post [place] placement. Currently on apixaban 9. DVT prophylaxis ? On apixaban Time spent in the patient's overall evaluation,decision-making process, review of diagnostic data, adjustment of management, discussion with other providers, nursing nursing and ancillary staff involved in patient's care documentation, 50 minutes Charges/Coding Visit Charges Inpatient E&M: 14232 [facility] L3
[2022-11-12] MEDS: 0.9% Normal Saline 1,000 ML IV.SOLN. 1000 ML OPERA.SITE (09:00)
[2022-11-12] MEDS: PureFlow B 2K Dialysis Soln 1 BAG 6 BAG PF (09:00)
[2022-11-12] MEDS: 0.9% Saline Lock 10 ML Syringe IV ×2 (09:01→22:48)
--- NOTE | 2022-11-12 09:49 | PN.RENAL_ITS ---
Subjective Subjective Sitting in bed. Alert and oriented. at bedside. Seen and examined on dialysis. Objective Data Objective Data Vital Signs: Vital Signs Temp Pulse Resp BP Pulse Ox O2 Del Method O2 Flow Rate 97.9 F 69 14 147/60 H 96 Nasal Cannula 4 11/12/22 08:30 11/12/22 09:38 11/12/22 09:38 11/12/22 09:38 11/12/22 09:38 11/12/22 09:38 11/12/22 09:38 Oxygen Flow Rate (L/min) 4 Oxygen Delivery Method Nasal Cannula Weight: 148.2 kg Body Mass Index (BMI) 40.8 Intake & Output: Intake and Output for Last 24 Hours 11/10/22 11/11/22 11/12/22 23:59 23:59 23:59 Intake Total 2545.44 / 2545.44 570.38 / 630.38 110 / 110 Output Total 400 / 700 1050 / 1050 100 / 100 Balance 2145.44 / 1845.44 -479.62 / -419.62 Lab / Micro Data 11/12/22 03:54 11/12/22 03:54 Labs: Laboratory Results - last 24 hr 11/06/22 09:13: Miscellaneous Test 11/12/22 03:54: WBC 11.1 H, RBC 2.88 L, Hgb 7.3 L, Hct 24.6 L, MCV 85.4, MCH 25.3 L, MCHC 29.7 L, RDW Std Deviation 56.0 H, RDW Coeff of Ghassan 17.8 H, Plt Count 305, MPV 9.6, Immature Gran % (Auto) 2.000 H, Neut % (Auto) 77.2 H, Lymph % (Auto) 7.9 L, [place] % (Auto) 10.0, Eos % (Auto) 2.6, Baso % (Auto) 0.3, Absolute Neuts (auto) 8.6 H, Absolute Lymphs (auto) 0.88, Nucleated RBC % 0, So dium 143, Potassium 4.5, Chloride 113 H, Carbon Dioxide 26.0, Anion Gap 4 L, BUN 35 H, Creatinine 6.56 H, Estim Creat Clear Calc 14.67, Est GFR (MDRD) Af Amer 11 L, Est GFR (MDRD) Non-Af 9 L, BUN/Creatinine Ratio 5.3 L, Glucose 107 H, Calcium 8.5 Micro: Microbiology 11/05/22 18:00 Incision/Surgical Site Gram Stain - Final 11/05/22 18:00 Incision/Surgical Site Wound Culture - Final No growth aerobically. 11/05/22 18:00 Incision/Surgical Site Anaerobic Culture - Final No growth in 5 days. 11/04/22 13:20 Fluid - Synovial (joint) Gram Stain - Final 11/04/22 13:20 Fluid - Synovial (joint) Body Fluid Culture - Final No growth aerobically. 11/04/22 13:20 Fluid - Synovial (joint) Anaerobic Culture - Final No growth in 5 days. 11/03/22 18:11 Blood Culture (Wb) - Anticubital Left Blood Culture - Final No growth in 5 days. 11/03/22 18:17 Blood Culture (Wb) - Anticubital Right Blood Culture - Final No growth in 5 days. 11/04/22 18:30 Stool C. difficile GDH Antigen & Toxins - Final Toxigenic C. difficile Physical Exam Narrative Alert and oriented x3, no apparent distress S1, S2, RRR Lung sounds clear anteriorly and posteriorly, slightly diminished posterior bases. No rhonchi rales noted Abdomen soft, distended, positive bowel sounds No pitting edema Right IJ temporary HD catheter accessed for hemodialysis Assessment & Plan Assessment/Plan (1) NYDIA (acute kidney injury): PLAN: - Nonoliguric, mildly hypovolemic acute kidney injury which is multifactorial: related to infection, dehydration due to profound diarrhea secondary to C. difficile colitis and poor oral intake, IV contrast administration and to note vanco trough on 11/07 >50. Normal baseline cre atinine. Creatinine 1.45 on admission (11/03), improved to 0.85 on 11/04 however serum creatinine slowly rising since 11/05. Serum creatinine peaked 7.34 mg/dL on 11/11 and patient uremic. Renal ultrasound: Right kidney 13 cm, left kidney 15 cm, no hydronephrosis, slightly hypertrophic left kidney. UA negative for blood, 30 protein. - temporary HD catheter placed and patient had first HD session 11/11. Appreciate surgery team for placing non-tunneled HD catheter. familiar with dialysis as patient did need hemodialysis in August of this year at [facility]. Fortunately renal function improved and patient did not need renal placement therapy at time of hospital discharge. - 1st HD 11/11 with no UF. Patient alert today, and overall clinically improved. Off precedex yesterday. To have HD again today for clearance with around 500 mL UF. Evaluate for dialysis needs tomorrow. Continue to monitor for renal recovery. Discussed plan with patient's . - labs ordered for am - bps acceptable on norvasc - confusion; brain ct no acute process. possibly related to infection vs medications vs uremia. Off Neurontin and baclofen dose decreased - septic arthritis right hip, underwent I&D right hip with washout, on Ceftriaxone. Recommend off IV vanco for now. Getting oral vanco for cdiff. - discussed with Dr. Zheng.
--- NOTE | 2022-11-12 10:33 | PCM.PN.ID ---
Physical Exam Narrative Feeling much better. No fever. HD this AM. No abd pain. 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 Reviewed [facility] and [facility] records, saw Dr. Morgan with ID 3 weeks ago, plan was for bactrim for one year. Now with new R hip septic arthritis. Aspiration 11/04 and OR 11/[address] Hemphill so far with negative gram stain and culture. Bcx x2 11/03 remain neg. Admitted on vanc/zosyn. Whipple's can very rarely cause a septic arthritis, so spoke with path lab and ordered send out test for pcr of fluid sample. 11/06/22 changed abx to vanc/ceftriaxone 2gm q12h to cover for normal septic arthritis skin eduardo as well as potential relapse of Whipple. Whipple pcr was neg, so will decrease ceftriaxone to q24h. With NYDIA, will change vanc to dapto. cdiff colitis - on po vanc. new NYDIA - neph following, vanc level high. Vanc stopped. Will follow (2) NYDIA (acute kidney injury): (3) Encephalopathy: (4) C. difficile colitis:
--- NOTE | 2022-11-12 10:42 | CASEMGMT ---
Social Work Power of traffic law attorney for healthcare document, with the living will provision initialed, is scanned into the summary tab of echart. Shani Laurent is listed as healthcare POA. NARCISO Josue
[2022-11-12] MEDS: Ferrous Sulfate 325 MG Tablet PO (11:44)
[2022-11-12] MEDS: Venlafaxine XR 150 MG Capsule PO (11:44)
[2022-11-12] MEDS: Potassium Chloride Oral Tablet 20 MEQ PO (11:44)
[2022-11-12] MEDS: Pantoprazole Sodium 40 MG Tablet PO (11:44)
[2022-11-12] MEDS: Fenofibrate 48 MG Tablet PO (11:44)
[2022-11-12] MEDS: amLODIPine 2.5 MG Tablet PO (11:44)
[2022-11-12] MEDS: APIXABAN 5 MG TABLET PO ×2 (11:45→22:31)
[2022-11-12] MEDS: Ascorbic Acid 500 MG Tablet 1000 MG PO (11:58)
--- NOTE | 2022-11-12 13:15 | PN.SURG_ITS ---
Subjective Subjective Patient seen and examined during rounds. He is found sitting out of bed in a chair. His is at bedside visiting. He states that he is feeling better. His confirms that his neurologic status is much improved. Jointly they state that dialysis went well today and plans are to repeat tomorrow but then give Mr. Laurent the weekend off. He denies any significant discomfort from the catheter in his neck. Objective Data Objective Data Vital Signs: Vital Signs Temp Pulse Resp BP Pulse Ox O2 Del Method O2 Flow Rate 97 F L 68 12 147/52 H 94 Nasal Cannula 4 11/12/22 12:00 11/12/22 12:00 11/12/22 12:00 11/12/22 12:00 11/12/22 12:00 11/12/22 12:00 11/12/22 12:00 Oxygen Flow Rate (L/min) 4 Oxygen Delivery Method Nasal Cannula Weight: 325 lb 9.964 oz Body Mass Index (BMI) 40.6 Intake & Output: Intake and Output for Last 24 Hours 11/10/22 11/11/22 11/12/22 23:59 23:59 23:59 Intake Total 2545.44 / 2545.44 570.38 / 630.38 710 / 710 Output Total 400 / 700 1050 / 1050 800 / 800 Balance 2145.44 / 1845.44 -479.62 / -419.62 -90 / -90 Lab / Micro Data 11/12/22 03:54 11/12/22 03:54 Labs: Laboratory Results - last 24 hr 11/06/22 09:13: Miscellaneous Test 11/12/22 03:54: WBC 11.1 H, RBC 2.88 L, Hgb 7.3 L, Hct 24.6 L, MCV 85.4, MCH 25.3 L, MCHC 29.7 L, RDW Std Deviation 56.0 H, RDW Coeff of Ghassan 17.8 H, Plt Count 305, MPV 9.6, Immature Gran % (Auto) 2.000 H, Neut % (Auto) 77.2 H, Lymph % (Auto) 7.9 L, [place] % (Auto) 10.0, Eos % (Auto) 2.6, Baso % (Auto) 0.3, Absolute Neuts (auto) 8.6 H, Absolute Lymphs (auto) 0.88, Nucleated RBC % 0, Sodium 143, Potassium 4.5, Chloride 113 H, Carbon Dioxide 26.0, Anion Gap 4 L, BUN 35 H, Creatinine 6.56 H, Estim Creat Clear Calc 14.67, Est GFR (MDRD) Af Amer 11 L, Est GFR (MDRD) Non-Af 9 L, BUN/Creatinine Ratio 5.3 L, Glucose 107 H, Calcium 8.5 Micro: Microbiology 11/05/22 18:00 Incision/Surgical Site Gram Stain - Final 11/05/22 18:00 Incision/Surgical Site Wound Culture - Final No growth aerobically. 11/05/22 18:00 Incision/Surgical Site Anaerobic Culture - Final No growth in 5 days. 11/04/22 13:20 Fluid - Synovial (joint) Gram Stain - Final 11/04/22 13:20 Fluid - Synovial (joint) Body Fluid Culture - Final No growth aerobically. 11/04/22 13:20 Fluid - Synovial (joint) Anaerobic Culture - Final No growth in 5 days. 11/03/22 18:11 Blood Culture (Wb) - Anticubital Left Blood Culture - Final No growth in 5 days. 11/03/22 18:17 Blood Culture (Wb) - Anticubital Right Blood Culture - Final No growth in 5 days. 11/04/22 18:30 Stool C. difficile GDH Antigen & Toxins - Final Toxigenic C. difficile Physical Exam Neck Neck Narrative: Right neck catheter without significant edema. There is a slight amount of old blood right at the insertion site. Patient has minimal tenderness with palpation about the area. Catheter port lumens appear locked. Resp normal respiratory effort Assessment & Plan Assessment/Plan (1) NYDIA (acute kidney injury): PLAN: Status post right internal jugular hemodialysis catheter insertion 11/10/2022. Catheter appears to be functioning adequately for hemodialysis. Patient appears to have responded favorably with improvements in his neurologic status. At present it appears too early to determine what his renal function recovery will be and I will await further directive from nephrology as to whether or not he will ultimately require a tunneled line. Charges/Coding Visit Charges Inpatient E&M: 71350 Subs Hosp L2
[2022-11-12] MEDS: Doxazosin 1 MG Tablet PO (22:30)
[2022-11-12] MEDS: traZODone 100 MG Tablet PO (22:30)
[2022-11-13] VITALS (13 sets, daily range): BP systolic 111–206; BP diastolic 57–88; PULSE 71–90; RESP 12–18; TEMP 36.2–37.2; O2SAT 92–98; BMI 40.4
[2022-11-13] MEDS: Vancomycin 125 MG/5 ML Susp PO.SYRINGE PO ×5 (00:51→23:49)
[2022-11-13] MEDS: Acetaminophen 500 MG Tablet 1000 MG PO ×3 (06:07→22:10)
[2022-11-13] MEDS: Menthol/Lanolin/Calamine/Znox 113 GM Tube 1 APPLIC TOPICAL ×3 (06:08→22:11)
[2022-11-13] MEDS: Baclofen 10 MG Tablet 5 MG PO ×3 (06:11→22:11)
[2022-11-13 07:37] LABS: BUN 31 mg/dL (7-18); BUN/Creat Ratio 5.7 RATIO (10-20); Calcium,Total 8.5 mg/dL (8.5-10.1); Chloride 113 mmol/L (98-107); Creatinine, Serum 5.42 mg/dL (0.70-1.30); EST Glomerular Filtration Rate 12 mL/min (>60); Est Glom Filt Rate - Afr Amer 14 mL/min (>60); Estimated Creatinine Clearance 17.76 ml/min; Glucose 94 mg/dL (74-106); Phosphorus 4.5 mg/dL (2.5-4.9); Potassium 4.1 mmol/L (3.5-5.1); Sodium Level 144 mmol/L (136-145)
--- NOTE | 2022-11-13 08:57 | PCM.PN.HOSP ---
Reason for Visit Reason for Visit: Diagnoses Enterocolitis due to Clostridium difficile, not specified as recurrent (11/03/22) Encephalopathy, unspecified (11/03/22) Other nonrheumatic aortic valve disorders (11/03/22) Pyogenic arthritis, unspecified (11/03/22) Pain in right hip (11/03/22) Acute kidney failure, unspecified (11/03/22) Diarrhea, unspecified (11/03/22) Subjective Subjective Seen level of sensorium continues to improve with improving azotemia Objective Data Objective Data Vital Signs: Vital Signs Temp Pulse Resp BP Pulse Ox O2 Del Method O2 Flow Rate 97.9 F 71 16 123/71 H 92 Room Air 2 11/13/22 02:50 11/13/22 02:50 11/13/22 02:50 11/13/22 02:50 11/13/22 08:39 11/13/22 08:39 11/12/22 14:50 Oxygen Flow Rate (L/min) 2 Oxygen Delivery Method Room Air Weight: 146.9 kg Body Mass Index (BMI) 40.4 Intake & Output: Intake and Output for Last 24 Hours 11/11/22 11/12/22 11/13/22 23:59 23:59 23:59 Intake Total 570.38 / 630.38 1360 / 1360 100 / 100 Output Total 1050 / 1050 1800 / 1800 350 / 350 Balance -479.62 / -419.62 -440 / -440 -250 / -250 Lab / Micro Data 11/12/22 03:54 11/13/22 06:58 Labs: Laboratory Results - last 24 hr 11/06/22 09:13: Miscellaneous Test 11/13/22 06:58: Sodium 144, Potassium 4.1, Chloride 113 H, Carbon Dioxide 25.0, BUN 31 H, Creatinine 5.42 H, Estim Creat Clear Calc 17.76, Est GFR (MDRD) Af Amer 14 L, Est GFR (MDRD) Non-Af 12 L, BUN/Creatinine Ratio 5.7 L, Glucose 94, Calcium 8.5, Phosphorus 4.5, Albumin 2.0 L Micro: Microbiology 11/05/22 18:00 Incision/Surgical Site Gram Stain - Final 11/05/22 18:00 Incision/Surgical Site Wound Culture - Final No growth aerobically. 11/05/22 18:00 Incision/Surgical Site Anaerobic Culture - Final No growth in 5 days. 11/04/22 13:20 Fluid - Synovial (joint) Gram Stain - Final 11/04/22 13:20 Fluid - Synovial (joint) Body Fluid Culture - Final No growth aerobically. 11/04/22 13:20 Fluid - Synovial (joint) Anaerobic Culture - Final No growth in 5 days. 11/03/22 18:11 Blood Culture (Wb) - Anticubital Left Blood Culture - Final No growth in 5 days. 11/03/22 18:17 Blood Culture (Wb) - Anticubital Right Blood Culture - Final No growth in 5 days. 11/04/22 18:30 Stool C. difficile GDH Antigen & Toxins - Final Toxigenic C. difficile Physical Exam Narrative GENERAL: Delirious HEENT: Atraumatic; normocephalic EYES; Anicteric, Normal Conjunctiva NECK; supple, normal thyroid, RESPIRATORY: Diminished to auscultation CARDIOVASCULAR: Regular S1 S2, GI: soft, normoactive bowel sounds, : No Renal angle tenderness; EXTREMITIES: No edema, no clubbing, MUSCULOSKELETAL: no muscle wasting NEURO: Awake; no lateralizing signs. SKIN: No Rash PSYCH; agitated Assessment & Plan Assessment/Plan (1) Septic arthritis of hip: QUALIFIERS: Laterality: right Septic arthritis organism: due to unspecified organism Qualified Code(s): M00.9 - Pyogenic arthritis, unspecified PLAN: Plan Patient is a 57-year-old gentleman with multiple comorbidities was admitted with acute intractable right hip pain. An assessment of septic joint was made, patient underwent irrigation and debridement of the right hip and washout and cultures sent. 1. Septic arthritis involving the right joint ? Patient underwent incision and drainage by general surgery on 11/06/2022 cultures sent patient managed with vancomycin and ceftriaxone. Patient cultures so far pending ? 11/10/2022 patient cultures so far no growth in 48 hours ? 11/13/[address] negative CT 2. Acute C. difficile colitis ? On p.o. vancomycin ? 11/11/2022 patient has apparently not been able to receive the p.o. vancomycin given his significant delirium and inability to take pills by mouth ? 11/12/2022 patient resumed taking p.o. vancomycin following improvement in his level of sensorium 3. Acute delirium secondary to acute metabolic encephalopathy ? Secondary to septic joint as well as medications well as his impaired kidney for. Patient was on baclofen and gabapentin discontinued patient treated symptomatically with Haldol as needed ? 11/10/2022 patient still remains delirious ? 11/11/2022 Patient underwent placement of tunneled catheter the day prior and subsequently transferred to the intensive care unit. Patient seen currently undergoing dialysis. Still remains delirious ? 11/12/2022 patient level of sensorium improved ? Metabolic encephalopathy resolved 4. Acute kidney injury ? Patient creatinine on admission was 0.85 has since deteriorated and 7.13. ? 11/10/2022 case was discussed with nephrology plan is for possible placement of temporary dialysis catheter for initiation of dialysis ? 11/11/2022 tunneled dialysis catheter placed on 11/10/2021 for initiation of dialysis ? 11/12/2022 patient having his second session of dialysis 5. 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 Patient apparently did require long-term IV antibiotics in 09/2019 6. Hypertension - Blood pressure controlled, home medications continued with dose adjustment as needed 7. GERD ? On PPI 8. History of previous DVT ? Status post Grant placement. Currently on apixaban 9. DVT prophylaxis ? On apixaban Time spent in the patient's overall evaluation,decision-making process, review of diagnostic data, adjustment of management, discussion with other providers, nursing nursing and ancillary staff involved in patient's care documentation, 35 minutes Charges/Coding Visit Charges Inpatient E&M: 55192 Subs Hosp L2
--- NOTE | 2022-11-13 10:17 | PN.RENAL_ITS ---
Subjective Subjective Sitting up in bed watching TV. Alert and oriented x3. No overnight events. Objective Data Objective Data Vital Signs: Vital Signs Temp Pulse Resp BP Pulse Ox O2 Del Method O2 Flow Rate 98.1 F 72 18 139/70 H 92 Room Air 2 11/13/22 09:37 11/13/22 09:37 11/13/22 09:37 11/13/22 09:37 11/13/22 09:37 11/13/22 09:37 11/12/22 14:50 Oxygen Flow Rate (L/min) 2 Oxygen Delivery Method Room Air Weight: 146.9 kg Body Mass Index (BMI) 40.4 Intake & Output: Intake and Output for Last 24 Hours 11/11/22 11/12/22 11/13/22 23:59 23:59 23:59 Intake Total 570.38 / 630.38 1360 / 1360 100 / 100 Output Total 1050 / 1050 1800 / 1800 350 / 350 Balance -479.62 / -419.62 -440 / -440 -250 / -250 Lab / Micro Data 11/12/22 03:54 11/13/22 06:58 Labs: Laboratory Results - last 24 hr 11/13/22 06:58: Sodium 144, Potassium 4.1, Chloride 113 H, Carbon Dioxide 25.0, BUN 31 H, Creatinine 5.42 H, Estim Creat Clear Calc 17.76, Est GFR (MDRD) Af Jaquelin r 14 L, Est GFR (MDRD) Non-Af 12 L, BUN/Creatinine Ratio 5.7 L, Glucose 94, Calcium 8.5, Phosphorus 4.5, Albumin 2.0 L Micro: Microbiology 11/05/22 18:00 Incision/Surgical Site Gram Stain - Final 11/05/22 18:00 Incision/Surgical Site Wound Culture - Final No growth aerobically. 11/05/22 18:00 Incision/Surgical Site Anaerobic Culture - Final No growth in 5 days. 11/04/22 13:20 Fluid - Synovial (joint) Gram Stain - Final 11/04/22 13:20 Fluid - Synovial (joint) Body Fluid Culture - Final No growth aerobically. 11/04/22 13:20 Fluid - Synovial (joint) Anaerobic Culture - Final No growth in 5 days. 11/03/22 18:11 Blood Culture (Wb) - Anticubital Left Blood Culture - Final No growth in 5 days. 11/03/22 18:17 Blood Culture (Wb) - Anticubital Right Blood Culture - Final No growth in 5 days. 11/04/22 18:30 Stool C. difficile GDH Antigen & Toxins - Final Toxigenic C. difficile Physical Exam Narrative Alert and oriented x3, no apparent distress S1, S2, RRR Lung sounds clear Abdomen soft, rounded, positive bowel sounds No edema Right IJ temporary HD catheter dressing clean, dry and intact Assessment & Plan Assessment/Plan (1) NYDIA (acute kidney injury): PLAN: - Nonoliguric, mildly hypovolemic acute kidney injury which is multifactorial: related to infection, dehydration due to profound diarrhea secondary to C. difficile colitis and poor oral intake, IV contrast administration and to note vanco trough on 11/07 >50. Normal baseline creatinine. Creatinine 1.45 on admission (11/03), improved to 0.85 on 11/04 however serum creatinine slowly rising since 11/05. Serum creatinine peaked 7.34 mg/dL on 11/11 and patient uremic. Renal ultrasound: Right kidney 13 cm, left kidney 15 cm, no hydronephrosis, slightly hypertrophic left kidney. UA negative for blood, 30 protein. - temporary HD catheter placed and patient had first HD session 11/11. Appreciate surgery team for placing non-tunneled HD catheter. familiar with dialysis as patient did need hemodialysis in August of this year at [facility]. Fortunately renal function improved and patient did not need renal placement therapy at time of hospital discharge. - 1st HD 11/11 with no UF, after first dialysis session patient's mentation improved significantly and he was able to be taken off precedex. To have HD again today for clearance with around 500 mL UF. Continue to monitor for renal recovery. We will stop oral potassium. Will not plan for hemodialysis over the weekend unless acute need arises. If no noted renal recovery by time of hospital discharge patient will need tunneled HD catheter placed - labs ordered for am - bps acceptable on norvasc and Cardura - confusion mentation back to baseline; brain ct no acute process. possibly related to infection vs medications vs uremia. Off Neurontin and baclofen dose decreased - septic arthritis right hip, underwent I&D right hip with washout, on Ceftriaxone. Recommend off IV vanco for now. Getting oral vanco for cdiff. - discussed nephrology plan with Dr. Zheng.
[2022-11-13] MEDS: Ascorbic Acid 500 MG Tablet 1000 MG PO (13:24)
[2022-11-13] MEDS: APIXABAN 5 MG TABLET PO ×2 (13:24→22:11)
[2022-11-13] MEDS: Fenofibrate 48 MG Tablet PO (13:25)
[2022-11-13] MEDS: Ferrous Sulfate 325 MG Tablet PO (13:25)
--- NOTE | 2022-11-13 14:40 | PCM.PN.ID ---
Physical Exam Narrative Feeling well, making urine. No fever, no abd pain, denies diarrhea. 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 Reviewed [facility] and [facility] records, saw Dr. Morgan with ID 3 weeks ago, plan was for bactrim for one year. Now with new R hip septic arthritis. Aspiration 11/04 and OR 11/[address] Hemphill so far with negative gram stain and culture. Bcx x2 11/03 remain neg. Admitted on vanc/zosyn. Whipple's can very rarely cause a septic arthritis, so spoke with path lab and ordered send out test for pcr of fluid sample. 11/06/22 changed abx to vanc/ceftriaxone 2gm q12h to cover for normal septic arthritis skin eduardo as well as potential relapse of Whipple. Whipple pcr was neg, so will decrease ceftriaxone to q24h. With NYDIA, changed vanc to dapto. cdiff colitis - on po vanc. new NYDIA - neph following, vanc level high. Vanc stopped. Will follow (2) NYDIA (acute kidney injury): (3) Encephalopathy: (4) C. difficile colitis:
[2022-11-13] MEDS: 0.9% Normal Saline 1,000 ML IV.SOLN. 1000 ML OPERA.SITE (15:25)
[2022-11-13] MEDS: PureFlow B 3K Dialysis Soln 1 BAG 6 BAG PF (15:25)
[2022-11-13] MEDS: 0.9% Saline Lock 10 ML Syringe IV ×2 (15:27→22:20)
[2022-11-13] MEDS: Venlafaxine XR 150 MG Capsule PO (17:48)
[2022-11-13] MEDS: amLODIPine 2.5 MG Tablet PO (17:48)
[2022-11-13] MEDS: Pantoprazole Sodium 40 MG Tablet PO (17:48)
[2022-11-13] MEDS: Doxazosin 1 MG Tablet PO (22:10)
[2022-11-13] MEDS: traZODone 100 MG Tablet PO (22:11)
[2022-11-14] VITALS (7 sets, daily range): BP systolic 116–180; BP diastolic 64–89; PULSE 81–88; RESP 16–18; TEMP 36.4–37.6; O2SAT 93–96; BMI 40.1
[2022-11-14] MEDS: Baclofen 10 MG Tablet 5 MG PO ×3 (06:19→22:04)
[2022-11-14] MEDS: Acetaminophen 500 MG Tablet 1000 MG PO ×3 (06:19→22:04)
[2022-11-14] MEDS: Vancomycin 125 MG/5 ML Susp PO.SYRINGE PO ×4 (06:20→23:39)
[2022-11-14] MEDS: Menthol/Lanolin/Calamine/Znox 113 GM Tube 1 APPLIC TOPICAL ×3 (06:22→22:04)
[2022-11-14 08:37] LABS: BUN 27 mg/dL (7-18); BUN/Creat Ratio 6.4 RATIO (10-20); Calcium,Total 8.5 mg/dL (8.5-10.1); Chloride 113 mmol/L (98-107); Creatinine, Serum 4.22 mg/dL (0.70-1.30); EST Glomerular Filtration Rate 16 mL/min (>60); Est Glom Filt Rate - Afr Amer 19 mL/min (>60); Glucose 85 mg/dL (74-106); Phosphorus 4.2 mg/dL (2.5-4.9); Potassium 3.9 mmol/L (3.5-5.1); Sodium Level 146 mmol/L (136-145)
--- NOTE | 2022-11-14 08:40 | PN.SURG_ITS ---
Subjective Subjective Patient has no current complaints. Creatinine is improved to 4.22 this morning Objective Data Objective Data Vital Signs: Vital Signs Temp Pulse Resp BP Pulse Ox O2 Del Method O2 Flow Rate 98.8 F 82 16 130/64 H 94 Room Air 2 11/14/22 04:03 11/14/22 04:03 11/14/22 04:03 11/14/22 04:03 11/14/22 04:03 11/14/22 08:00 11/12/22 14:50 Oxygen Flow Rate (L/min) 2 Oxygen Delivery Method Room Air Weight: 320 lb 12.361 oz Body Mass Index (BMI) 40.1 Intake & Output: Intake and Output for Last 24 Hours 11/12/22 11/13/22 11/14/22 23:59 23:59 23:59 Intake Total 1360 / 1360 1588 / 1588 240 / 240 Output Total 1800 / 1800 2650 / 2650 250 / 250 Balance -440 / -440 -1062 / -1062 -10 / -10 Lab / Micro Data 11/12/22 03:54 11/14/22 07:40 Labs: Laboratory Results - last 24 hr 11/14/22 07:40: Sodium 146 H, Potassium 3.9, Chloride 113 H, Carbon Dioxide 23.0, BUN 27 H, Creatinine 4.22 H, Estim Creat Clear Calc 22.80, Est GFR (MDRD) Af Amer 19 L, Est GFR (MDRD) Non-Af 16 L, BUN/Creatinine Ratio 6.4 L, Glucose 85, Calcium 8.5, Phosphorus 4.2, Albumin 2.0 L Micro: Microbiology 11/05/22 18:00 Incision/Surgical Site Gram Stain - Final 11/05/22 18:00 Incision/Surgical Site Wound Culture - Final No growth aerobically. 11/05/22 18:00 Incision/Surgical Site Anaerobic Culture - Final No growth in 5 days. 11/04/22 13:20 Fluid - Synovial (joint) Gram Stain - Final 11/04/22 13:20 Fluid - Synovial (joint) Body Fluid Culture - Final No growth aerobically. 11/04/22 13:20 Fluid - Synovial (joint) Anaerobic Culture - Final No growth in 5 days. 11/03/22 18:11 Blood Culture (Wb) - Anticubital Left Blood Culture - Final No growth in 5 days. 11/03/22 18:17 Blood Culture (Wb) - Anticubital Right Blood Culture - Final No growth in 5 days. 11/04/22 18:30 Stool C. difficile GDH Antigen & Toxins - Final Toxigenic C. difficile Physical Exam Narrative Right IJ temporary dialysis catheter in place Const oriented x3 Resp normal respiratory effort Cardio regular rate Assessment & Plan Assessment/Plan (1) NYDIA (acute kidney injury): PLAN: Status post right internal jugular hemodialysis catheter insertion 11/10/2022. Creatinine is coming continuing to improve. We will continue to follow --no plans for dialysis this weekend as far as I am aware. Lacy Leal M.D. Pager: [phone] [facility] [address] [place] [address], [facility], [address] [place] [address] Office: [phone] Charges/Coding Visit Charges Inpatient E&M: 19759 Subs Hosp L2
--- NOTE | 2022-11-14 08:49 | PCM.PN.HOSP ---
Reason for Visit Reason for Visit: Diagnoses Enterocolitis due to Clostridium difficile, not specified as recurrent (11/03/22) Encephalopathy, unspecified (11/03/22) Other nonrheumatic aortic valve disorders (11/03/22) Pyogenic arthritis, unspecified (11/03/22) Pain in right hip (11/03/22) Acute kidney failure, unspecified (11/03/22) Diarrhea, unspecified (11/03/22) Subjective Subjective Patient seen clinical condition as well as kidney function continues to improve. Objective Data Objective Data Vital Signs: Vital Signs Temp Pulse Resp BP Pulse Ox O2 Del Method O2 Flow Rate 98.8 F 82 16 130/64 H 94 Room Air 2 11/14/22 04:03 11/14/22 04:03 11/14/22 04:03 11/14/22 04:03 11/14/22 04:03 11/14/22 08:00 11/12/22 14:50 Oxygen Flow Rate (L/min) 2 Oxygen Delivery Method Room Air Weight: 145.5 kg Body Mass Index (BMI) 40.1 Intake & Output: Intake and Output for Last 24 Hours 11/12/22 11/13/22 11/14/22 23:59 23:59 23:59 Intake Total 1360 / 1360 1588 / 1588 240 / 240 Output Total 1800 / 1800 2650 / 2650 250 / 250 Balance -440 / -440 -1062 / -1062 -10 / -10 Lab / Micro Data 11/12/22 03:54 11/14/22 07:40 Labs: Laboratory Results - last 24 hr 11/14/22 07:40: Sodium 146 H, Potassium 3.9, Chloride 113 H, Carbon Dioxide 23.0, BUN 27 H, Creatinine 4.22 H, Estim Creat Clear Calc 22.80, Est GFR (MDRD) Af Amer 19 L, Est GFR (MDRD) Non-Af 16 L, BUN/Creatinine Ratio 6.4 L, Glucose 85, Calcium 8.5, Phosphorus 4.2, Albumin 2.0 L Micro: Microbiology 11/05/22 18:00 Incision/Surgical Site Gram Stain - Final 11/05/22 18:00 Incision/Surgical Site Wound Culture - Final No growth aerobically. 11/05/22 18:00 Incision/Surgical Site Anaerobic Culture - Final No growth in 5 days. 11/04/22 13:20 Fluid - Synovial (joint) Gram Stain - Final 11/04/22 13:20 Fluid - Synovial (joint) Body Fluid Culture - Final No growth aerobically. 11/04/22 13:20 Fluid - Synovial (joint) Anaerobic Culture - Final No growth in 5 days. 11/03/22 18:11 Blood Culture (Wb) - Anticubital Left Blood Culture - Final No growth in 5 days. 11/03/22 18:17 Blood Culture (Wb) - Anticubital Right Blood Culture - Final No growth in 5 days. 11/04/22 18:30 Stool C. difficile GDH Antigen & Toxins - Final Toxigenic C. difficile Physical Exam Narrative GENERAL: Cooperative HEENT: Atraumatic; normocephalic EYES; Anicteric, Normal Conjunctiva NECK; supple, normal thyroid, RESPIRATORY: Diminished to auscultation CARDIOVASCULAR: Regular S1 S2, GI: soft, normoactive bowel sounds, : No Renal angle tenderness; EXTREMITIES: No edema, no clubbing, MUSCULOSKELETAL: no muscle wasting NEURO: Awake; no lateralizing signs. SKIN: No Rash PSYCH; flat affect Assessment & Plan Assessment/Plan (1) Septic arthritis of hip: QUALIFIERS: Laterality: right Septic arthritis organism: due to unspecified organism Qualified Code(s): M00.9 - Pyogenic arthritis, unspecified PLAN: Plan Patient is a 57-year-old gentleman with multiple comorbidities was admitted with acute intractable right hip pain. An assessment of septic joint was made, patient underwent irrigation and debridement of the right hip and washout and cultures sent. 1. Septic arthritis involving the right joint ? Patient underwent incision and drainage by general surgery on 11/06/2022 cultures sent patient managed with vancomycin and ceftriaxone. Patient cultures so far pending ? 11/10/2022 patient cultures so far no growth in 48 hours ? 11/13/[address] cultures of remain negative CT 2. Acute C. difficile colitis ? On p.o. vancomycin ? 11/11/2022 patient has apparently not been able to receive the p.o. vancomycin given his significant delirium and inability to take pills by mouth ? 11/12/2022 patient resumed taking p.o. vancomycin following improvement in his level of sensorium 3. Acute delirium secondary to acute metabolic encephalopathy ? Secondary to septic joint as well as medications well as his impaired kidney for. Patient was on baclofen and gabapentin discontinued patient treated symptomatically with Haldol as needed ? 11/10/2022 patient still remains delirious ? 11/11/2022 Patient underwent placement of tunneled catheter the day prior and subsequently transferred to the intensive care unit. Patient seen currently undergoing dialysis. Still remains delirious ? 11/12/2022 patient level of sensorium improved ? Metabolic encephalopathy resolved 4. Acute kidney injury ? Patient creatinine on admission was 0.85 has since deteriorated and 7.13. ? 11/10/2022 case was discussed with nephrology plan is for possible placement of temporary dialysis catheter for initiation of dialysis ? 11/11/2022 tunneled dialysis catheter placed on 11/10/2021 for initiation of dialysis ? 11/12/2022 patient having his second session of dialysis ? 11/14/2022 kidney function continues to improve 5. 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 Patient apparently did require long-term IV antibiotics in 09/2019 6. Hypertension - Blood pressure controlled, home medications continued with dose adjustment as needed 7. GERD ? On PPI 8. History of previous DVT ? Status post Grant placement. Currently on apixaban 9. DVT prophylaxis ? On apixaban 10. Physical deconditioning - Requested for PT OT eval and social media designer to assist with discharge planning Time spent in the patient's overall evaluation,decision-making process, review of diagnostic data, adjustment of management, discussion with other providers, nursing nursing and ancillary staff involved in patient's care documentation, 35 minutes Charges/Coding Visit Charges Inpatient E&M: 36597 Subs Hosp L2
[2022-11-14] MEDS: Fenofibrate 48 MG Tablet PO (10:21)
[2022-11-14] MEDS: amLODIPine 2.5 MG Tablet PO (10:21)
[2022-11-14] MEDS: Venlafaxine XR 150 MG Capsule PO (10:21)
[2022-11-14] MEDS: Pantoprazole Sodium 40 MG Tablet PO (10:21)
[2022-11-14] MEDS: APIXABAN 5 MG TABLET PO ×2 (10:23→22:04)
[2022-11-14] MEDS: Ascorbic Acid 500 MG Tablet 1000 MG PO (11:23)
[2022-11-14] MEDS: 0.9% Saline Lock 10 ML Syringe IV ×2 (11:23→22:12)
[2022-11-14] MEDS: Ferrous Sulfate 325 MG Tablet PO (11:43)
[2022-11-14] MEDS: Doxazosin 1 MG Tablet PO (22:04)
[2022-11-14] MEDS: traZODone 100 MG Tablet PO (22:04)
[2022-11-14] MEDS: Mag Hydrox/Al Hydrox/Simeth 30 ML UDC 15 ML PO (22:05)
--- NOTE | 2022-11-14 22:56 | EKG12_ITS ---
Test Reason : CHEST PAIN Blood Pressure : / mmHG Vent. Rate : 087 BPM Atrial Rate : 087 BPM P-R Int : 150 ms QRS Dur : 096 ms QT Int : 394 ms P-R-T Axes : 062 030 059 degrees QTc Int : 474 ms Normal sinus rhythm Possible Left atrial enlargement Borderline ECG When compared with ECG of 05-NOV-2022 05:17, No significant change was found Confirmed by ILANA BAKER, FLACO ([id number]), magazine editor CORY STEINBERG ([id number]) on 01/04/2023 1:07:28 PM Referred By: DEBBI Confirmed By:FLACO PRECIADO MD
[2022-11-14] MEDS: hydrALAZINE 20 MG/ML Vial 10 MG IV (23:05)
[2022-11-14] MEDS: Mag Hydrox/Al Hydrox/Simeth 30 ML UDC PO (23:27)
[2022-11-15] VITALS (10 sets, daily range): BP systolic 123–186; BP diastolic 59–81; PULSE 64–89; RESP 16–18; TEMP 36.4–37.2; O2SAT 94–100; BMI 39.8
[2022-11-15] MEDS: HYDROmorphone 1 MG/ML Syringe IV (00:12)
--- NOTE | 2022-11-15 00:41 | PCM.HOSP.N ---
Hospitalist Note Chest pain that seem to be more epigastric in nature. EKG was unchanged from previous. Patient was given famotidine and then GI cocktail. Cardiac enzymes x3 cycling. Check chest x-ray. PE is very unlikely as patient is fully anticoagulated with Eliquis 5 mg p.o. twice daily.
[2022-11-15] MEDS: Nitroglycerin (INPATIENT USE) 0.4 MG TAB.SUBL SL (00:58)
[2022-11-15] MEDS: Metoprolol Tartrate 5 MG/5 ML Vial IV (01:18)
[2022-11-15] MEDS: 0.9% Saline Lock 10 ML Syringe IV ×5 (01:22→23:19)
--- NOTE | 2022-11-15 01:25 | RAD_ITS ---
INDICATION: chest pain EXAMINATION/TECHNIQUE: X-RAY - XR Chest 1 View COMPARISON: 11/10/2022 FINDINGS: LINES/DEVICES: Central venous line is seen on the right side its tip is at the lower part of the superior vena cava. PICC line is also seen on the left side its tip is at the lower part of the superior vena cava. LUNGS: No consolidation, edema or effusion. No pneumothorax. MEDIASTINUM AND CARDIOVASCULAR STRUCTURES: Cardiac silhouette not enlarged. Central airways and mediastinal contour are unremarkable. BONES AND SOFT TISSUES: Unremarkable. RAD/Chest 1 View (Portable) IMPRESSION: No radiographic evidence of acute cardiopulmonary disease. Electronically Signed: Emily Tobin MD at 3:28 EDT ,
[2022-11-15 01:27] LABS: Troponin-I HS 23 pg/mL (3.0-78.0)
[2022-11-15 04:01] LABS: Anion Gap 7 (5-15); BUN 25 mg/dL (7-18); Calcium,Total 8.4 mg/dL (8.5-10.1); Chloride 116 mmol/L (98-107); Creatinine, Serum 4.14 mg/dL (0.70-1.30); EST Glomerular Filtration Rate 16 mL/min (>60); Est Glom Filt Rate - Afr Amer 19 mL/min (>60); Estimated Creatinine Clearance 23.25 ml/min; Glucose 92 mg/dL (74-106); Potassium 3.9 mmol/L (3.5-5.1); Sodium Level 148 mmol/L (136-145); Troponin-I HS 26 pg/mL (3.0-78.0)
[2022-11-15] MEDS: Baclofen 10 MG Tablet 5 MG PO ×3 (05:56→21:47)
[2022-11-15] MEDS: Acetaminophen 500 MG Tablet 1000 MG PO ×3 (05:56→21:47)
[2022-11-15] MEDS: Menthol/Lanolin/Calamine/Znox 113 GM Tube 1 APPLIC TOPICAL ×3 (05:57→21:48)
[2022-11-15] MEDS: Vancomycin 125 MG/5 ML Susp PO.SYRINGE PO ×4 (05:57→23:11)
--- NOTE | 2022-11-15 06:06 | NURSING ---
PICC line in left upper arm withdrawn 2 cm as ordered per Dr Edmond using sterile technique. Pt tolerated procedure.
--- NOTE | 2022-11-15 06:08 | NURSING ---
PICC line in left upper arm withdrawn [address] Edmond's order using sterile technique. A total of 3cm of PICC exposed. Pt tolerated procedure.
[2022-11-15 07:31] LABS: Troponin-I HS 27 pg/mL (3.0-78.0)
--- NOTE | 2022-11-15 07:54 | PN.HOSP_ITS ---
Reason for Visit Reason for Visit: Diagnoses Enterocolitis due to Clostridium difficile, not specified as recurrent ( 3) Encephalopathy, unspecified (11/03/22) Other nonrheumatic aortic valve disorders (11/03/22) Pyogenic arthritis, unspecified (11/03/22) Pain in right hip (11/03/22) Acute kidney failure, unspecified (11/03/22) Diarrhea, unspecified (11/03/22) Subjective Subjective Patient seen still complains of having loose bowel movement. He also did complain of heartburn. Objective Data Objective Data Vital Signs: Vital Signs Temp Pulse Resp BP Pulse Ox O2 Del Method O2 Flow Rate 98.2 F 84 16 154/65 H 97 Nasal Cannula 2 11/15/22 04:20 11/15/22 04:20 11/15/22 04:20 11/15/22 04:20 11/15/22 04:20 11/15/22 04:20 11/15/22 04:20 Oxygen Flow Rate (L/min) 2 Oxygen Delivery Method Nasal Cannula Weight: 144.6 kg Body Mass Index (BMI) 39.8 Intake & Output: Intake and Output for Last 24 Hours 11/13/22 11/14/22 11/15/22 23:59 23:59 23:59 Intake Total 1588 / 1588 1390 / 1890 700 / 700 Output Total 2650 / 2650 800 / 1400 600 / 600 Balance -1062 / -1062 590 / 490 100 / 100 Lab / Micro Data 11/12/22 03:54 11/15/22 03:15 Labs: Laboratory Results - last 24 hr 11/14/22 07:40: Sodium 146 H, Potassium 3.9, Chloride 113 H, Carbon Dioxide 23.0, BUN 27 H, Creatinine 4.22 H, Estim Creat Clear Calc 22.80, Est GFR (MDRD) Af Amer 19 L, Est GFR (MDRD) Non-Af 16 L, BUN/Creatinine Ratio 6.4 L, Glucose 85, Calcium 8.5, Phosphorus 4.2, Albumin 2.0 L 11/15/22 01:03: Troponin I High Sens 11/15/22 03:15: Sodium 148 H, Potassium 3.9, Chloride 116 H, Carbon Dioxide 25.0, Anion Gap 7, BUN 25 H, Creatinine 4.14 H, Estim Creat Clear Calc 23.25, Est GFR (MDRD) Af Amer 19 L, Est GFR (MDRD) Non-Af 16 L, BUN/Creatinine Ratio 6.0 L, Glucose 92, Calcium 8.4 L, Magnesium 2.0, Troponin I High Sens 26 11/15/22 06:54: Troponin I High Sens 27 Micro: Microbiology 11/05/22 18:00 Incision/Surgical Site Gram Stain - Final 11/05/22 18:00 Incision/Surgical Site Wound Culture - Final No growth aerobically. 11/05/22 18:00 Incision/Surgical Site Anaerobic Culture - Final No growth in 5 days. 11/04/22 13:20 Fluid - Synovial (joint) Gram Stain - Final 11/04/22 13:20 Fluid - Synovial (joint) Body Fluid Culture - Final No growth aerobically. 11/04/22 13:20 Fluid - Synovial (joint) Anaerobic Culture - Final No growth in 5 days. 11/03/22 18:11 Blood Culture (Wb) - Anticubital Left Blood Culture - Final No growth in 5 days. 11/03/22 18:17 Blood Culture (Wb) - Anticubital Right Blood Culture - Final No growth in 5 days. 11/04/22 18:30 Stool C. difficile GDH Antigen & Toxins - Final Toxigenic C. difficile Radiography Diagnostic Testing: Radiology Impression Chest X-Ray 11/15/22 01:25 IMPRESSION: No radiographic evidence of acute cardiopulmonary disease. Electronically Signed: Emily Tobin MD at 3:28 EDT Reading Location ID and State: [facility] / [place] Tel , Service support , Physical Exam Narrative GENERAL: Cooperative HEENT: Atraumatic; normocephalic EYES; Anicteric, Normal Conjunctiva NECK; supple, normal thyroid, RESPIRATORY: Diminished to auscultation CARDIOVASCULAR: Regular S1 S2, GI: soft, normoactive bowel sounds, : No Renal angle tenderness; EXTREMITIES: No edema, no clubbing, MUSCULOSKELETAL: no muscle wasting NEURO: Awake; no lateralizing signs. SKIN: No Rash PSYCH; flat affect Assessment & Plan Assessment/Plan (1) Septic arthritis of hip: QUALIFIERS: Laterality: right Septic arthritis organism: due to unspecified organism Qualified Code(s): M00.9 - Pyogenic arthritis, unspecified PLAN: Plan Patient is a 57-year-old gentleman with multiple comorbidities was admitted with acute intractable right hip pain. An assessment of septic joint was made, patient underwent irrigation and debridement of the right hip and washout and cultures sent. 1. Septic arthritis involving the right joint ? Patient underwent incision and drainage by general surgery on 11/06/2022 cultures sent patient managed with vancomycin and ceftriaxone. Patient cultures so far pending ? 11/10/2022 patient cultures so far no growth in 48 hours ? 11/13/[address] negative CT 2. Acute C. difficile colitis ? On p.o. vancomycin ? 11/11/2022 patient has apparently not been able to receive the p.o. vancomycin given his significant delirium and inability to take pills by mouth ? 11/12/2022 patient resumed taking p.o. vancomycin following improvement in his level of sensorium ? 11/16/2019. Patient is on p.o. vancomycin still continues to experience loose bowel movement overall frequency decreasing however no change in consistency 3. Acute delirium secondary to acute metabolic encephalopathy ? Secondary to septic joint as well as medications well as his impaired kidney for. Patient was on baclofen and gabapentin discontinued patient treated symptomatically with Haldol as needed ? 11/10/2022 patient still remains delirious ? 11/11/2022 Patient underwent placement of tunneled catheter the day prior and subsequently transferred to the intensive care unit. Patient seen currently undergoing dialysis. Still remains delirious ? 11/12/2022 patient level of sensorium improved ? Metabolic encephalopathy resolved 4. Acute kidney injury ? Patient creatinine on admission was 0.85 has since deteriorated and 7.13. ? 11/10/2022 case was discussed with nephrology plan is for possible placement of temporary dialysis catheter for initiation of dialysis ? 11/11/2022 tunneled dialysis catheter placed on 11/10/2021 for initiation of dialysis ? 11/12/2022 patient having his second session of dialysis ? 11/14/2022 kidney function continues to improve 5. 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 Patient apparently did require long-term IV antibiotics in 09/2019 6. Hypertension - Blood pressure controlled, home medications continued with dose adjustment as needed 7. GERD ? On PPI ? 11/15/2022 patient complaining of heartburn patient is on Protonix continued 8. History of previous DVT ? Status post Grant placement. Currently on apixaban 9. DVT prophylaxis ? On apixaban 10. Physical deconditioning - Requested for PT OT eval and clinical social worker to assist with discharge planning Time spent in the patient's overall evaluation,decision-making process, review of diagnostic data, adjustment of management, discussion with other providers, nursing nursing and ancillary staff involved in patient's care documentation, 35 minutes Charges/Coding Visit Charges Inpatient E&M: 04245 Subs Hosp L2
--- NOTE | 2022-11-15 08:36 | PN.SURG_ITS ---
Subjective Subjective Patient has no current complaints. Creatinine is improved to 4.14 this morning Objective Data Objective Data Vital Signs: Vital Signs Temp Pulse Resp BP Pulse Ox O2 Del Method O2 Flow Rate 98.2 F 84 16 154/65 H 97 Nasal Cannula 2 11/15/22 04:20 11/15/22 04:20 11/15/22 04:20 11/15/22 04:20 11/15/22 04:20 11/15/22 04:20 11/15/22 04:20 Oxygen Flow Rate (L/min) 2 Oxygen Delivery Method Nasal Cannula Weight: 318 lb 12.615 oz Body Mass Index (BMI) 39.8 Intake & Output: Intake and Output for Last 24 Hours 11/13/22 11/14/22 11/15/22 23:59 23:59 23:59 Intake Total 1588 / 1588 1390 / 1890 700 / 700 Output Total 2650 / 2650 800 / 1400 600 / 600 Balance -1062 / -1062 590 / 490 100 / 100 Lab / Micro Data 11/12/22 03:54 11/15/22 03:15 Labs: Laboratory Results - last 24 hr 11/14/22 07:40: Sodium 146 H, Potassium 3.9, Chloride 113 H, Carbon Dioxide 23.0, BUN 27 H, Creatinine 4.22 H, Estim Creat Clear Calc 22.80, Est GFR (MDRD) Af Amer 19 L, Est GFR (MDRD) Non-Af 16 L, BUN/Creatinine Ratio 6.4 L, Glucose 85, Calcium 8.5, Phosphorus 4.2, Albumin 2.0 L 11/15/22 01:03: Troponin I High Sens 23 11/15/22 03:15: Sodium 148 H, Potassium 3.9, Chloride 116 H, Carbon Dioxide 25.0, Anion Gap 7, BUN 25 H, Creatinine 4.14 H, Estim Creat Clear Calc 23.25, Est GFR (MDRD) Af Amer 19 L, Est GFR (MDRD) Non-Af 16 L, BUN/Creatinine Ratio 6.0 L, Glucose 92, Calcium 8.4 L, Magnesium 2.0, Troponin I High Sens 26 11/15/22 06:54: Troponin I High Sens 27 Micro: Microbiology 11/05/22 18:00 Incision/Surgical Site Gram Stain - Final 11/05/22 18:00 Incision/Surgical Site Wound Culture - Final No growth aerobically. 11/05/22 18:00 Incision/Surgical Site Anaerobic Culture - Final No growth in 5 days. 11/04/22 13:20 Fluid - Synovial (joint) Gram Stain - Final 11/04/22 13:20 Fluid - Synovial (joint) Body Fluid Culture - Final No growth aerobically. 11/04/22 13:20 Fluid - Synovial (joint) Anaerobic Culture - Final No growth in 5 days. 11/03/22 18:11 Blood Culture (Wb) - Anticubital Left Blood Culture - Final No growth in 5 days. 11/03/22 18:17 Blood Culture (Wb) - Anticubital Right Blood Culture - Final No growth in 5 days. 11/04/22 18:30 Stool C. difficile GDH Antigen & Toxins - Final Toxigenic C. difficile Radiography Diagnostic Testing: Radiology Impression Chest X-Ray 11/15/22 01:25 IMPRESSION: No radiographic evidence of acute cardiopulmonary disease. Electronically Signed: Emily Tobin MD at 3:28 EDT Reading Location ID and State: [address] [place] [address] Tel , Service support , Physical Exam Narrative Right IJ temporary dialysis catheter in place Const oriented x3 Resp normal respiratory effort Cardio regular rate Assessment & Plan Assessment/Plan (1) NYDIA (acute kidney injury): PLAN: Status post right internal jugular hemodialysis catheter insertion 11/10/2022. Creatinine is continuing to improve. We will continue to follow. Lacy Leal M.D. Pager: [phone] [facility] [address] [place] [address], [facility], [address] [place] [address] Office: [phone] Charges/Coding Visit Charges Inpatient E&M: 50521 Subs Hosp L2
[2022-11-15] MEDS: amLODIPine 2.5 MG Tablet PO (10:08)
[2022-11-15] MEDS: Fenofibrate 48 MG Tablet PO (10:08)
[2022-11-15] MEDS: Potassium Chloride Oral Tablet 20 MEQ PO (10:08)
[2022-11-15] MEDS: APIXABAN 5 MG TABLET PO ×2 (10:08→21:47)
[2022-11-15] MEDS: Venlafaxine XR 150 MG Capsule PO (10:08)
[2022-11-15] MEDS: Pantoprazole Sodium 40 MG Tablet PO (10:08)
[2022-11-15] MEDS: Ascorbic Acid 500 MG Tablet 1000 MG PO (11:14)
[2022-11-15] MEDS: Ferrous Sulfate 325 MG Tablet PO (12:18)
[2022-11-15] MEDS: Doxazosin 1 MG Tablet PO (21:47)
[2022-11-15] MEDS: traZODone 100 MG Tablet PO (21:48)
[2022-11-15] MEDS: hydrALAZINE 20 MG/ML Vial 10 MG IV (23:19)
[2022-11-16] VITALS (12 sets, daily range): BP systolic 144–188; BP diastolic 58–79; PULSE 85–91; RESP 18–19; TEMP 36.3–37.1; O2SAT 90–97; BMI 39.5
[2022-11-16] MEDS: amLODIPine 10 MG Tablet PO ×2 (01:25→10:28)
[2022-11-16] MEDS: Acetaminophen 500 MG Tablet 1000 MG PO ×3 (05:42→18:31)
[2022-11-16] MEDS: Menthol/Lanolin/Calamine/Znox 113 GM Tube 1 APPLIC TOPICAL ×3 (05:43→22:19)
[2022-11-16] MEDS: Vancomycin 125 MG/5 ML Susp PO.SYRINGE PO ×4 (05:43→23:06)
[2022-11-16] MEDS: Baclofen 10 MG Tablet 5 MG PO ×3 (05:43→22:13)
[2022-11-16] MEDS: hydrALAZINE 20 MG/ML Vial 10 MG IV ×2 (06:10→23:01)
[2022-11-16] MEDS: 0.9% Saline Lock 10 ML Syringe IV ×5 (06:12→23:02)
--- NOTE | 2022-11-16 07:41 | PCM.PN.SRG ---
Objective Data Objective Data Vital Signs: Vital Signs Temp Pulse Resp BP Pulse Ox O2 Del Method O2 Flow Rate 98.7 F 89 18 168/64 H 94 Nasal Cannula 2 11/16/22 03:09 11/16/22 06:10 11/16/22 03:09 11/16/22 06:10 11/16/22 06:36 11/16/22 06:36 11/16/22 06:36 Oxygen Flow Rate (L/min) 2 Oxygen Delivery Method Nasal Cannula Weight: 316 lb 2.286 oz Body Mass Index (BMI) 39.5 Intake & Output: Intake and Output for Last 24 Hours 11/14/22 11/15/22 11/16/22 23:59 23:59 23:59 Intake Total 1390 / 1890 2318 / 2318 240 / 240 Output Total 800 / 1400 1725 / 1725 900 / 900 Balance 590 / 490 593 / 593 -660 / -660 Lab / Micro Data 11/12/22 03:54 11/15/22 03:15 Micro: Microbiology 11/05/22 18:00 Incision/Surgical Site Gram Stain - Final 11/05/22 18:00 Incision/Surgical Site Wound Culture - Final No growth aerobically. 11/05/22 18:00 Incision/Surgical Site Anaerobic Culture - Final No growth in 5 days. 11/04/22 13:20 Fluid - Synovial (joint) Gram Stain - Final 11/04/22 13:20 Fluid - Synovial (joint) Body Fluid Culture - Final No growth aerobically. 11/04/22 13:20 Fluid - Synovial (joint) Anaerobic Culture - Final No growth in 5 days. 11/03/22 18:11 Blood Culture (Wb) - Anticubital Left Blood Culture - Final No growth in 5 days. 11/03/22 18:17 Blood Culture (Wb) - Anticubital Right Blood Culture - Final No growth in 5 days. 11/04/22 18:30 Stool C. difficile GDH Antigen & Toxins - Final Toxigenic C. difficile
[2022-11-16 09:39] LABS: Anion Gap 4 (5-15); BUN 25 mg/dL (7-18); BUN/Creat Ratio 7.4 RATIO (10-20); Calcium,Total 8.9 mg/dL (8.5-10.1); Chloride 116 mmol/L (98-107); Creatinine, Serum 3.39 mg/dL (0.70-1.30); EST Glomerular Filtration Rate 20 mL/min (>60); Est Glom Filt Rate - Afr Amer 24 mL/min (>60); Estimated Creatinine Clearance 28.39 ml/min; Glucose 108 mg/dL (74-106); Potassium 3.7 mmol/L (3.5-5.1); Sodium Level 146 mmol/L (136-145)
--- NOTE | 2022-11-16 09:48 | PN.RENAL_ITS ---
Subjective Subjective Following for dialysis requiring NYDIA. Patient sitting up in bed watching TV. Denies any complaints. Alert and orie nted. No overnight events Objective Data Objective Data Vital Signs: Vital Signs Temp Pulse Resp BP Pulse Ox O2 Del Method O2 Flow Rate 98.7 F 89 18 168/64 H 94 Nasal Cannula 2 11/16/22 03:09 11/16/22 06:10 11/16/22 03:09 11/16/22 06:10 11/16/22 06:36 11/16/22 06:36 11/16/22 06:36 Oxygen Flow Rate (L/min) 2 Oxygen Delivery Method Nasal Cannula Weight: 143.4 kg Body Mass Index (BMI) 39.5 Intake & Output: Intake and Output for Last 24 Hours 11/14/22 11/15/22 11/16/22 23:59 23:59 23:59 Intake Total 1390 / 1890 2318 / 2318 240 / 240 Output Total 800 / 1400 1725 / 1725 900 / 900 Balance 590 / 490 593 / 593 -660 / -660 Lab / Micro Data 11/12/22 03:54 11/16/22 09:12 Labs: Laboratory Results - last 24 hr 11/16/22 09:12: Sodium 146 H, Potassium 3.7, Chloride 116 H, Carbon Dioxide 26.0, Anion Gap 4 L, BUN 25 H, Creatinine 3.39 H, Estim Creat Clear Calc 28.39, Est GFR (MDRD) Af Amer 24 L, Est GFR (MDRD) Non-Af 20 L, BUN/Creatinine Ratio 7.4 L, Glucose 108 H, Calcium 8.9 Micro: Microbiology 11/05/22 18:00 Incision/Surgical Site Gram Stain - Final 11/05/22 18:00 Incision/Surgical Site Wound Culture - Final No growth aerobically. 11/05/22 18:00 Incision/Surgical Site Anaerobic Culture - Final No growth in 5 days. 11/04/22 13:20 Fluid - Synovial (joint) Gram Stain - Final 11/04/22 13:20 Fluid - Synovial (joint) Body Fluid Culture - Final No growth aerobically. 11/04/22 13:20 Fluid - Synovial (joint) Anaerobic Culture - Final No growth in 5 days. 11/03/22 18:11 Blood Culture (Wb) - Anticubital Left Blood Culture - Final No growth in 5 days. 11/03/22 18:17 Blood Culture (Wb) - Anticubital Right Blood Culture - Final No growth in 5 days. 11/04/22 18:30 Stool C. difficile GDH Antigen & Toxins - Final Toxigenic C. difficile Physical Exam Narrative Alert and oriented x3, no apparent distress S1, S2, RRR Lung sounds clear anteriorly and posteriorly Abdomen soft, nontender No edema Right IJ non-tunneled HD catheter dressing clean, dry and intact Assessment & Plan Assessment/Plan (1) NYDIA (acute kidney injury): PLAN: - Nonoliguric, mildly hypovolemic acute kidney injury which is multifactorial: related to infection, dehydration due to profound diarrhea secondary to C. difficile colitis and poor oral intake, IV contrast administration and to note vanco trough on 11/07 >50. Normal baseline creatinine. Creatinine 1.45 on admission (11/03), improved to 0.85 on 11/04 however serum creatinine slowly rising since 11/05. Serum creatinine peaked 7.34 mg/dL on 11/11 and patient uremic. Renal ultrasound: Right kidney 13 cm, left kidney 15 cm, no hydronephrosis, slightly hypertrophic left kidney. UA negative for blood, 30 protein. - temporary HD catheter placed and patient had first HD session 11/11. Appreciate surgery team for placing non-tunneled HD catheter. familiar with dialysis as patient did need hemodialysis in August of this year at [facility]. Fortunately renal function improved and patient did not need renal placement therapy at time of hospital discharge. - 1st HD 11/11 with no UF, after first dialysis session patient's mentation improved significantly and he was able to be taken off precedex. Patient had dialysis again 11/12 and 11/13. Today serum creatinine 3.39, bicarb 26, potassium 3.7, urine output 1.7 L yesterday, urine output today so far 500. Patient does not need any [employer]IRS[employer] today. Likely he will no longer need dialysis during this hospitalization, will follow trajectory. Labs ordered for morning - bps elevated, on amlodipine and Cardura. Increase cardura. losartan on hold due to NYDIA - confusion mentation back to baseline; brain ct no acute process. possibly related to infection vs medications vs uremia. Off Neurontin and baclofen dose decreased - septic arthritis right hip, underwent I&D right hip with washout, on Ceftriaxone. Getting oral vanco for cdiff.
[2022-11-16] MEDS: Fenofibrate 48 MG Tablet PO (10:27)
[2022-11-16] MEDS: Potassium Chloride Oral Tablet 20 MEQ PO (10:27)
[2022-11-16] MEDS: Pantoprazole Sodium 40 MG Tablet PO (10:28)
[2022-11-16] MEDS: APIXABAN 5 MG TABLET PO ×2 (10:28→22:14)
[2022-11-16] MEDS: Venlafaxine XR 150 MG Capsule PO (11:26)
[2022-11-16] MEDS: Ferrous Sulfate 325 MG Tablet PO (11:30)
[2022-11-16] MEDS: Ascorbic Acid 500 MG Tablet 1000 MG PO (11:30)
--- NOTE | 2022-11-16 14:06 | PCM.PN.ID ---
Physical Exam Narrative Feeling better, no fever, no diarrhea Const alert and no apparent distress General Appearance: cooperative Resp normal air movement and clear to auscultation bilaterally Cardio regular rate and regular rhythm GI soft to palpation, non-tender and non-distended Skin no rashes or lesions noted ID ID: Route of nutrition/ use of supplements: [] Nutritional Intake: [] IV Site: [] Underwood Catheter: [] Assessment & Plan Assessment/Plan (1) Septic arthritis of hip: QUALIFIERS: Septic arthritis organism: due to unspecified organism Laterality: right Qualified Code(s): M00.9 - Pyogenic arthritis, unspecified PLAN: 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 Reviewed [facility] and [facility] records, saw Dr. Morgan with ID 3 weeks ago, plan was for bactrim for one year. Now with new R hip septic arthritis. Aspiration 11/04 and OR 11/[address] Hemphill so far with negative gram stain and culture. Bcx x2 11/03 remain neg. Admitted on vanc/zosyn. Whipple's can very rarely cause a septic arthritis, so spoke with path lab and ordered send out test for pcr of fluid sample. 11/06/22 changed abx to vanc/ceftriaxone 2gm q12h to cover for normal septic arthritis skin eduardo as well as potential relapse of Whipple. Whipple pcr was neg, so will decrease ceftriaxone to q24h. With NYDIA, changed vanc to dapto. cdiff colitis - on po vanc. new NYDIA - neph following, vanc level high. Vanc stopped. Will follow (2) NYDIA (acute kidney injury): (3) Encephalopathy: (4) C. difficile colitis:
--- NOTE | 2022-11-16 20:45 | PCM.PN.HOSP ---
Reason for Visit Reason for Visit: Diagnoses Enterocolitis due to Clostridium difficile, not specified as recurrent (11/03/22) Encephalopathy, unspecified (11/03/22) Other nonrheumatic aortic valve disorders (11/03/22) Pyogenic arthritis, unspecified (11/03/22) Pain in right hip (11/03/22) Acute kidney failure, unspecified (11/03/22) Diarrhea, unspecified (11/03/22) Subjective Subjective Patient was seen and examined today, we are awaiting approval for the patient to go to the rehab department for inpatient rehab services. Patient is finished with dialysis according to nephrology, patient's dialysis catheter will probably be pulled tomorrow. Patient is currently on ceftriaxone and daptomycin at this time. Patient is currently on p.o. vancomycin for C. difficile. Objective Data Objective Data Vital Signs: Vital Signs Temp Pulse Resp BP Pulse Ox O2 Del Method O2 Flow Rate 97.4 F L 85 18 144/64 H 97 Nasal Cannula 2 11/16/22 17:00 11/16/22 17:00 11/16/22 17:00 11/16/22 17:00 11/16/22 17:00 11/16/22 19:52 11/16/22 19:52 Oxygen Flow Rate (L/min) 2 Oxygen Delivery Method Nasal Cannula Weight: 143.4 kg Body Mass Index (BMI) 39.5 Intake & Output: Intake and Output for Last 24 Hours 11/14/22 11/15/22 11/16/22 23:59 23:59 23:59 Intake Total 1390 / 1890 2318 / 2318 1690 / 1690 Output Total 800 / 1400 1725 / 1725 1800 / 1800 Balance 590 / 490 593 / 593 -110 / -110 Lab / Micro Data 11/12/22 03:54 11/17/22 06:15 Labs: Laboratory Results - last 24 hr 11/16/22 09:12: Sodium 146 H, Potassium 3.7, Chloride 116 H, Carbon Dioxide 26.0, Anion Gap 4 L, BUN 25 H, Creatinine 3.39 H, Estim Creat Clear Calc 28.39, Est GFR (MDRD) Af Amer 24 L, Est GFR (MDRD) Non-Af 20 L, BUN/Creatinine Ratio 7.4 L, Glucose 108 H, Calcium 8.9 Micro: Microbiology 11/05/22 18:00 Incision/Surgical Site Gram Stain - Final 11/05/22 18:00 Incision/Surgical Site Wound Culture - Final No growth aerobically. 11/05/22 18:00 Incision/Surgical Site Anaerobic Culture - Final No growth in 5 days. 11/04/22 13:20 Fluid - Synovial (joint) Gram Stain - Final 11/04/22 13:20 Fluid - Synovial (joint) Body Fluid Culture - Final No growth aerobically. 11/04/22 13:20 Fluid - Synovial (joint) Anaerobic Culture - Final No growth in 5 days. 11/03/22 18:11 Blood Culture (Wb) - Anticubital Left Blood Culture - Final No growth in 5 days. 11/03/22 18:17 Blood Culture (Wb) - Anticubital Right Blood Culture - Final No growth in 5 days. 11/04/22 18:30 Stool C. difficile GDH Antigen & Toxins - Final Toxigenic C. difficile Physical Exam Const alert and no apparent distress Constitutional Narrative: Patient appears to be much older than his stated age General Appearance: cooperative, well kempt and well developed Orientation / Consciousness: awake, oriented to person and oriented to place HEENT normocephalic, head/scalp atraumatic and moist oral mucous membranes Eyes PERRL, EOMs intact bilaterally and conjunctivae normal Neck supple, no JVD, thyroid normal and no carotid bruits General: trachea midline Resp normal respiratory effort, no retractions, no use of accessory muscles and clear to auscultation bilaterally Auscultation: Negative for rales, rhonchi or wheezes Cardio regular rate, regular rhythm, S1 normal heart sound, S2 normal heart sound, no murmurs, no rub and no gallops GI normal to inspection, nondistended, normoactive bowel sounds, soft to palpation, non-tender and non-distended Extremity no clubbing, cyanosis or edema Skin no rashes or lesions noted General Skin Exam: no breakdown Neuro oriented x3, CN's II-XII intact bilaterally, moves all extremities, no focal motor deficits and no sensory deficits noted Sensorium / Orientation: awake, alert, oriented to person and oriented to place Speech: speech normal Psych affect normal Assessment & Plan Assessment/Plan (1) Encephalopathy: PLAN: Plan 1. Septic arthritis involving the right hip joint-continue present antibiotic coverage per infectious diseases #2 C. difficile colitis-patient is on oral vancomycin #3 metabolic encephalopathy-resolved at this time #4 acute kidney injury requiring dialysis-this may have been from use of IV vancomycin but etiology is not clear, patient was receiving temporary dialysis up until today, nephrology states that they are not going to dialyze the patient today and the plan is for the patient to have his temporary dialysis catheter removed tomorrow if he remains stable. #5 essential hypertension-patient will remain on his present blood pressure medications, dosage will be adjusted as needed #6 acute debility-PT and OT are seeing patient, we are awaiting approval for the patient to go to the rehab unit here at [facility] Total clinical time spent by myself addressing the patient's medical issues, reviewing all of his data, and collaborating with patient's care team: 35 minutes Charges/Coding Visit Charges Inpatient E&M: 71347 Subs Hosp L2
[2022-11-16] MEDS: Doxazosin 1 MG Tablet 2 MG PO (22:12)
[2022-11-16] MEDS: traZODone 100 MG Tablet PO (22:14)
[2022-11-17] MEDS: HYDROmorphone 1 MG/ML Syringe IV (03:03)
[2022-11-17] MEDS: 0.9% Saline Lock 10 ML Syringe IV ×3 (03:07→17:37)
[2022-11-17 03:10] VITALS: BP 151/71; PULSE 81; RESP 18; TEMP 36.9; O2SAT 97
[2022-11-17] MEDS: Baclofen 10 MG Tablet 5 MG PO ×2 (05:30→15:11)
[2022-11-17] MEDS: Acetaminophen 500 MG Tablet 1000 MG PO ×2 (05:31→15:11)
[2022-11-17] MEDS: Vancomycin 125 MG/5 ML Susp PO.SYRINGE PO ×3 (05:31→17:37)
[2022-11-17] MEDS: Menthol/Lanolin/Calamine/Znox 113 GM Tube 1 APPLIC TOPICAL ×2 (05:32→15:11)
[2022-11-17 05:37] VITALS: BMI 38.2
[2022-11-17 07:03] LABS: Anion Gap 5 (5-15); BUN 20 mg/dL (7-18); BUN/Creat Ratio 7.5 RATIO (10-20); Calcium,Total 8.6 mg/dL (8.5-10.1); Chloride 116 mmol/L (98-107); Creatinine, Serum 2.65 mg/dL (0.70-1.30); EST Glomerular Filtration Rate 26 mL/min (>60); Est Glom Filt Rate - Afr Amer 32 mL/min (>60); Estimated Creatinine Clearance 36.32 ml/min; Glucose 86 mg/dL (74-106); Potassium 3.9 mmol/L (3.5-5.1); Sodium Level 148 mmol/L (136-145)
--- NOTE | 2022-11-17 07:28 | NURSING ---
This RN consulted with food analyst this am. Patient labs consistently improving. Slimer deems patient has recovered & telephone order received to remove temporary dialysis catheter. Ordering provider: Krista Hernandez/Dr. Liliane Valdes
[2022-11-17 08:06] VITALS: O2SAT 90
[2022-11-17 09:12] VITALS: BP 140/54; PULSE 83; RESP 17; TEMP 37.1; O2SAT 93
[2022-11-17] MEDS: Potassium Chloride Oral Tablet 20 MEQ PO (09:14)
[2022-11-17] MEDS: Pantoprazole Sodium 40 MG Tablet PO (09:15)
[2022-11-17] MEDS: amLODIPine 10 MG Tablet PO (09:15)
[2022-11-17] MEDS: Fenofibrate 48 MG Tablet PO (09:15)
[2022-11-17] MEDS: Venlafaxine XR 150 MG Capsule PO (09:15)
--- NOTE | 2022-11-17 09:43 | PN.RENAL_ITS ---
Subjective Subjective No complaints today. States feeling better overall. Objective Data Objective Data Vital Signs: Vital Signs Temp Pulse Resp BP Pulse Ox O2 Del Method O2 Flow Rate 98.7 F 83 17 140/54 H 93 Room Air 2 11/17/22 09:12 11/17/22 09:12 11/17/22 09:12 11/17/22 09:12 11/17/22 09:12 11/17/22 09:12 11/17/22 03:10 Oxygen Flow Rate (L/min) 2 Oxygen Delivery Method Room Air Weight: 138.8 kg Body Mass Index (BMI) 38.2 Intake & Output: Intake and Output for Last 24 Hours 11/15/22 11/16/22 11/17/22 23:59 23:59 23:59 Intake Total 2318 / 2318 1740 / 1740 Output Total 1725 / 1725 2800 / 2800 400 / 400 Balance 593 / 593 -1060 / -1060 -400 / -400 Lab / Micro Data 11/12/22 03:54 11/17/22 06:15 Labs: Laboratory Results - last 24 hr 11/17/22 06:15: Sodium 148 H, Potassium 3.9, Chloride 116 H, Carbon Dioxide 27.0, Anion Gap 5, BUN 20 H, Creatinine 2.65 H, Estim Creat Clear Calc 36.32, Est GFR (MDRD) Af Amer 32 L, Est GFR (MDRD) Non-Af 26 L, BUN/Creatinine Ratio 7. 5 L, Glucose 86, Calcium 8.6 Micro: Microbiology 11/04/22 18:30 Stool Ova and Parasites - Final 11/05/22 18:00 Incision/Surgical Site Gram Stain - Final 11/05/22 18:00 Incision/Surgical Site Wound Culture - Final No growth aerobically. 11/05/22 18:00 Incision/Surgical Site Anaerobic Culture - Final No growth in 5 days. 11/04/22 13:20 Fluid - Synovial (joint) Gram Stain - Final 11/04/22 13:20 Fluid - Synovial (joint) Body Fluid Culture - Final No growth aerobically. 11/04/22 13:20 Fluid - Synovial (joint) Anaerobic Culture - Final No growth in 5 days. 11/03/22 18:11 Blood Culture (Wb) - Anticubital Left Blood Culture - Final No growth in 5 days. 11/03/22 18:17 Blood Culture (Wb) - Anticubital Right Blood Culture - Final No growth in 5 days. 11/04/22 18:30 Stool C. difficile GDH Antigen & Toxins - Final Toxigenic C. difficile Physical Exam Narrative Alert and oriented x3, no apparent distress S1, S2, RRR Lung sounds clear, anteriorly and posteriorly Abdomen soft, rounded, nontender No edema Dressing to right neck where temporary HD catheter had been Assessment & Plan Assessment/Plan (1) NYDIA (acute kidney injury): PLAN: - Nonoliguric, mildly hypovolemic acute kidney injury which is multifactorial: related to infection, dehydration due to profound diarrhea secondary to C. difficile colitis and poor oral intake, IV contrast administration and to note vanco trough on 11/07 >50. Normal baseline creatinine. Creatinine 1.45 on admission (11/03), improved to 0.85 on 11/04 however serum creatinine slowly rising since 11/05. Serum creatinine peaked 7.34 mg/dL on 11/11 and patient uremic. Renal ultrasound: Right kidney 13 cm, left kidney 15 cm, no hydronephrosis, slightly hypertrophic left kidney. UA negative for blood, 30 protein. - temporary HD catheter placed and patient had first HD session 11/11. Appreciate surgery team for placing non-tunneled HD catheter. familiar with dialysis as patient did need hemodialysis in August of this year at [facility]. Fortunately renal function improved and patient did not need renal placement therapy at time of hospital discharge. - 1st HD 11/11 with no UF, after first dialysis session patient's mentation improved significantly and he was able to be taken off precedex. Patient had dialysis 11/12 and 11/13. Today serum creatinine 2.65, potassium and bicarb normal, good urine output. Renal function improving without dialysis therefore patient no longer needs any hemodialysis. Temporary HD catheter removed. Will arrange for hospital followup in [facility] office. - bps improved, on amlodipine and Cardura. losartan on hold due to NYDIA - confusion mentation back to baseline; brain ct no acute process. possibly related to infection vs medications vs uremia. Off Neurontin and baclofen dose decreased - septic arthritis right hip, underwent I&D right hip with washout, on Ceftriaxone.
[2022-11-17] MEDS: Acetaminophen/Butalbital/Caffe 1 Tablet PO (11:24)
[2022-11-17] MEDS: Ascorbic Acid 500 MG Tablet 1000 MG PO (12:28)
[2022-11-17] MEDS: Ferrous Sulfate 325 MG Tablet PO (12:28)
--- NOTE | 2022-11-17 13:30 | CASEMGMT ---
Patient was approved for [facility] Acute Rehab Unit. SW notified physician. Blanca QUICK
--- NOTE | 2022-11-17 13:45 | CASEMGMT ---
SW notified patient he was approved to go to the rehab unit. Patient asked SW to call patient's and let her know this information. SW also notified RN. SW called patient's and let her know patient was approved and will go to the rehab unit at [facility] today. Plan: d/c to [facility] Acute Rehab Unit Blanca QUICK
[2022-11-17 16:24] VITALS: BP 146/62; PULSE 87; RESP 17; TEMP 37.2; O2SAT 94
--- NOTE | 2022-11-17 17:20 | PCM.TXEXTCAR ---
Diet Diet Order/Speech Therapy: 11/11/22 12:51 Diet: Renal - General Is pt able to select menu?: Yes Routine Orders/Code Status Routine Lab Work: BMP (0n 11/20/22) Code Status: Full Code Wound(s) RIGHT ANTERIOR HIP: Wound Type: Surgical Incision RT NECK: Wound Type: Puncture Therapies Weight Bearing: Weight bearing as tolerated Physical Therapy: Eval and Treat Occupational Therapy: Eval and Treat Problem/Diagnosis (1) NYDIA (acute kidney injury): Status: Acute Code(s): N17.9 - Acute kidney failure, unspecified (2) C. 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 If no further dialysis and renal labs remain stable, recommend Regular diet to optimize oral intakes. Discharge Plan Admission Admit Date/Time: 11/03/22 22:47 Primary Reason for Your Visit: Right hip septic arthritis, acute kidney injury requiring dialysis Attending Provider: Jhonny Bullock Primary Care Provider: Eleazar Hernandez Consulting Providers: Julito Kumar; Solitario Arriaza; Franc James; Harshad Escalona; Ky Riojas; Lizandro Frye; Rupesh Brooks; Mayito Cummings; Marcelino Michaud; Arline Villarreal NP; Melvin Rankin; Radha Shin; Nathan Hemphill; Sean Zheng Discharge Orders/Prescriptions Prescriptions: New doxazosin 1 mg Tablet 2 mg PO QHS Qty: 0 0RF acetaminophen 500 mg Tablet 1,000 mg PO Q8 Qty: 0 0RF wuniafxrau-vzvwocpsvjbbh-iyqa 50-325-40 mg Tablet 1 tab PO Q6H PRN PRN (Reason: Headache) Qty: 0 0RF amlodipine 10 mg Tablet 10 mg PO DAILY Qty: 0 0RF potassium chloride [Klor-Con M20] 20 mEq Tablet,Er Particles/Crystals 20 meq PO DAILYCM Qty: 0 0RF daptomycin 500 mg Recon Soln 900 mg IV Q48H 20 Days Qty: 1 0RF Rx Instructions: Discontinue on 12/07/2022-total of 30 days treatment from 11/05/2022 menthol-zinc oxide [Calmoseptine] 0.44-20.6 % Ointment 1 applic topical TID Qty: 0 0RF Protocol: *Topical Application Instructions APPLICATION INSTRUCTIONS: apply to buttocks/ coccyx, scrotum and groin. vancomycin [Firvanq] 25 mg/mL Recon Soln 125 mg PO Q6 20 Days Qty: 400 0RF Rx Instructions: Discontinue after IV antibiotics have finished ceftriaxone 2 gram recon soln 2 g IV Q24H 20 Days Rx Instructions: Discontinue on 12/07/2022 Continued polyethylene glycol 3350 17 g PO/SL QHS alum-mag hydroxide-simeth [Mag-Al Plus Extra Strength] 400-400-40 mg/5 mL Suspension 15 ml PO Q6H PRN PRN (Reason: HEARTBURN OR INDIGESTION) Qty: 1 0RF ascorbic acid (vitamin C) 500 mg tablet 1,000 mg PO 1200 venlafaxine 150 mg Capsule,Extended Release 24hr 150 mg PO DAILY Qty: 30 0RF baclofen 10 mg Tablet 5 mg PO TID Qty: 90 0RF gabapentin 100 mg Capsule 200 mg PO TIDCM Qty: 90 0RF losartan 100 mg Tablet 100 mg PO DAILY Qty: 30 0RF sennosides-docusate sodium [Stool Softener-Stimulant Laxat] 8.6-50 mg Tablet 2 tab PO BID Qty: 120 0RF potassium chloride [Klor-Con M20] 20 mEq Tablet,Er Particles/Crystals 20 meq PO DAILYCM Qty: 30 0RF trazodone 100 mg Tablet 100 mg PO QHS Qty: 30 0RF oxycodone 10 mg tablet 10 mg PO Q6H PRN (Reason: pain) 7 Days Qty: 28 0RF clopidogrel [Plavix] 75 mg Tablet 75 mg PO DAILY Qty: 30 0RF pantoprazole 40 mg tablet,delayed release (DR/EC) 40 mg PO DAILY Qty: 30 0RF ferrous sulfate [FeroSul] 325 mg (65 mg iron) tablet 325 mg PO DAILY@1200 Qty: 30 0RF Rx Instructions: Take this medication with the Vitamin C and with a meal to improve absorption fenofibrate nanocrystallized 48 mg tablet 48 mg PO DAILYCM Qty: 30 0RF Eliquis 5 mg Tablet 5 mg PO BID Qty: 60 0RF Discontinued acetaminophen 325 mg Tablet 650 mg PO Q6H PRN (Reason: pain/fever) doxazosin 1 mg Tablet 1 mg PO QHS Qty: 30 0RF amlodipine 10 mg tablet 2.5 mg PO DAILY Patient Comments: per PCP changed dose recently. 10/30/22 No Action sulfamethoxazole-trimethoprim 800-160 mg tablet Patient Comments: TAKE 1 TABLET BY MOUTH TWICE A DAY oxycodone [OxyContin] 15 mg tablet,oral only,ext.rel.12 hr PO Patient Comments: 15 mg orally twice a day for 7 days Referrals / Follow Up: Eleazar Hernandez DO [Primary Care Provider] - Nathan Hemphill DO [Med Staff - Active Staff] - See Referral Note (Dr. Hemphill will follow-up with the patient in the rehab unit) Disposition Disposition (needs filled in before D/C Order can be placed): Inpatient Rehab Unit/Facility (3) Septic arthritis of hip Qualifiers: Septic arthritis organism: due to unspecified organism Laterality: right Qualified Code(s): M00.9 - Pyogenic arthritis, unspecified
--- NOTE | 2022-11-17 18:00 | DS.PCM_ITS ---
Providers Date of Admission: 11/03/22 Date of Discharge: 11/17/22 Primary Care Physician: Dr. Eleazar Hernnadez, Consultations 11/04/22 00:02 Consult: Interventional Radiology Routine Consulting Provider: Melvin Rankin Reason for Consult: ultraound guided of Aspiration of right hip EMERGENT Consult: No MD Notified: Yes Date Notified: 11/04/22 Time Notified: 09:34 Method of Notification: call to radiology Consult: Orthopedics Routine Consulting Provider: Nathan Hemphill Reason for Consult: Possible R hip septic arthritis EMERGENT Consult: No Notified: Yes Date Notified: 11/03/22 Time Notified: 23:05 Method of Notification: ED Physician Initiated 11/06/22 07:44 Consult: Infectious Disease Routine Consulting Provider: Ky Riojas Reason for Consult: septic R hip s/p ortho washout EMERGENT Consult: No MD Notified: Yes Date Notified: 11/06/22 Time Notified: 09:55 Method of Notification: Answering Service 11/08/22 09:01 Consult: Nephrology Routine Consulting Provider: Radha Shin Reason for Consult: NYDIA EMERGENT Consult: No Notified: Yes Date Notified: 11/08/22 Time Notified: 09:02 Method of Notification: Answering Service 11/10/22 08:22 Consult: General Surgery Routine Consulting Provider: Harshad Escalona Reason for Consult: temp cath placement EMERGENT Consult: No Notified: Yes Date Notified: 11/10/22 Time Notified: 08:23 Method of Notification: Text 11/11/22 07:08 Consult: Waitress / Pulmonary Medicine Routine Consulting Provider: Pulmonary Medicine [facility] Reason for Consult: encephalopthy EMERGENT Consult: No Notified: Yes Date Notified: 11/11/22 Time Notified: 07:08 Method of Notification: Text Reason For Visit: POSSIBLE SEPTIC JOINT OF THE RIGHT HIP Diagnosis Discharge Diagnosis (1) NYDIA (acute kidney injury): Status: Acute Code(s): N17.9 - Acute kidney failure, unspecified (2) C. difficile colitis: Status: Acute Code(s): A04.72 - Enterocolitis due to Clostridium difficile, not specified as recurrent (3) Septic arthritis of hip: Status: Acute Code(s): M00.9 - Pyogenic arthritis, unspecified Qualifiers: Laterality: right Septic arthritis organism: due to unspecified organism Qualified Code(s): M00.9 - Pyogenic arthritis, unspecified (4) Polyclonal gammopathy: Status: Chronic Code(s): D89.0 - Polyclonal hypergammaglobulinemia Plan 1. Septic arthritis involving the right hip joint due to unspecified organism- continue present antibiotic coverage per infectious diseases #2 C. difficile colitis-patient is on oral vancomycin #3 metabolic encephalopathy-resolved at this time #4 acute kidney injury requiring dialysis due to multifactorial etiology (dehydration due to profound diarrhea secondary to C. difficile colitis, IV contrast administration, IV vancomycin administration) #5 essential hypertension-patient will remain on his present blood pressure medications, dosage will be adjusted as needed #6 acute debility-PT and OT are seeing patient, we are awaiting approval for the patient to go to the rehab unit here at [facility] Medications at Discharge Home Medications polyethylene glycol 3350 17 g PO/SL QHS CONSTIPATION 07/23/22 aluminum-mag hydroxide-simethicone 400 mg-400 mg-40 mg/5 mL oral susp (Mag-Al Plus Extra Strength) 15 ml PO Q6H PRN PRN HEARTBURN OR INDIGESTION #1 mL 09/02/22 ascorbic acid (vitamin C) 500 mg tablet 1,000 mg PO 1200 supplement 09/15/22 apixaban 5 mg tablet (Eliquis) 5 mg PO BID Check with primary doctor #60 tabs 10/09/22 baclofen 10 mg tablet 5 mg (1/2 x 10 mg) PO TID MUSCLE RELAXER #90 tabs 10/09/22 clopidogrel 75 mg tablet (Plavix) 75 mg PO DAILY Check with primary doctor #30 tabs 10/09/22 fenofibrate nanocrystallized 48 mg tablet 48 mg PO DAILYCM Check with primary doctor #30 tabs 10/09/22 ferrous sulfate 325 mg (65 mg iron) tablet (FeroSul) 325 mg PO DAILY@1200 supplement #30 tabs 10/09/22 gabapentin 100 mg capsule 200 mg (2 x 100 mg) PO TIDCM NERVE PAIN #90 caps 10/09/22 losartan 100 mg tablet 100 mg PO DAILY HTN #30 tabs 10/09/22 oxycodone 10 mg tablet 10 mg PO Q6H PRN pain 7 days #28 tabs 10/09/22 pantoprazole 40 mg tablet,delayed release 40 mg PO DAILY Check with primary doctor #30 tabs 10/09/22 potassium chloride 20 mEq tablet,extended release(part/cryst) (Klor-Con M) 20 meq PO DAILYCM SUPPLEMENT #30 tabs 10/09/22 sennosides 8.6 mg-docusate sodium 50 mg tablet (Stool Softener-Stimulant Laxative) 2 tab PO BID STOOL SOFTENER #120 tabs 10/09/22 trazodone 100 mg tablet 100 mg PO QHS ANTIDEPRESSANT #30 tabs 10/09/22 venlafaxine 150 mg capsule,extended release 24 hr 150 mg PO DAILY DEPRESSION #30 caps 10/09/22 acetaminophen 500 mg tablet 1,000 mg (2 x 500 mg) PO Q8 pain #0 tabs 11/17/22 lajzwyyofh-vntathnzrtgni-eejynvip 50 mg-325 mg-40 mg tablet 1 tab PO Q6H PRN PRN Headache #0 tabs 11/17/22 ceftriaxone 2 gram intravenous solution 2 g IV Q24H ANTIBIOTIC 20 days 11/17/22 daptomycin 500 mg intravenous solution 900 mg IV Q48H ANTIBIOTIC 20 days #1 ea 11/17/22 menthol 0.44 %-zinc oxide 20.6 % topical ointment (Calmoseptine) 1 applic topical TID SKIN TREATMENT 11/17/22 vancomycin 25 mg/mL oral solution (Firvanq) 125 mg (5 mL) PO Q6 ANTIBIOTIC 20 days #400 mL 11/17/22 amlodipine 10 mg tablet 2.5 mg PO DAILY HTN 11/18/22 doxazosin 2 mg tablet (Cardura) 2 mg PO QHS heart 11/18/22 Hospital Course Operations - (Irrigation debridement of the right hip on 11/05/2022) Procedures Dialysis and - (Temporary dialysis catheter placement) Summary of Care Provided Minutes Spent on Discharge: 34 Hospital Course: This 57-year-old white male was seen in the emergency room at [facility] with complaints of worsening right hip pain as well as diarrhea. Patient is currently on long-term Bactrim therapy by infectious diseases and is on chronic Bactrim.. Patient has multiple comorbidities including previous stroke, endocarditis, and vertebral osteomyelitis. Work-up in the emergency room included a CBC which showed a hemoglobin of 9.8, white blood cell count was normal, CMP showed a mild renal insufficiency with a creatinine 1.45. Patient's sed rate was elevated at 52, CRP however was significantly elevated. CT of the abdomen and pelvis obtained and a CT of the cervical spine was also obtained. CT of the abdomen and pelvis was suspicious for infectious versus inflammatory colitis, no acute abnormality of the hip or bones were noted. CT of the cervical spine showed degenerative changes with no other acute process. Patient had significant pain on range of motion of his right hip. Case was discussed with orthopedic surgery who recommended IR guided joint aspiration, he agreed to see the patient in consultation in the hospital, general surgery was contacted given his CT findings of inflammatory versus infectious colitis. Patient was admitted to PCU, he was seen in consultation by orthopedic surgery, he underwent irrigation and debridement of the right hip, cultures obtained from the area did not grow out any organisms, he was seen by infectious diseases who adjusted antibiotic coverage. Patient was also noted to have C. difficile colitis and was placed on oral vancomycin. Patient had an acute kidney injury during his hospitalization and required temporary dialysis, a temporary dialysis catheter was placed he was seen by nephrology. Patient's dialysis ultimately was able to be stopped and his kidney function trended toward normal. Patient was seen by PT and OT, it was recommended that he go to an extended care facility for short-term rehab services versus an inpatient rehab facility. Patient was excepted at [facility] rehab facility. On 11/17/2022, patient was seen and examined:alert and no apparent distress Constitutional Narrative: Patient appears to be much older than his stated age General Appearance: cooperative, well kempt and well developed Orientation / Consciousness: awake, oriented to person and oriented to place HEENT normocephalic, head/scalp atraumatic and moist oral mucous membranes Eyes PERRL, EOMs intact bilaterally and conjunctivae normal Neck supple, no JVD, thyroid normal and no carotid bruits General: trachea midline Resp normal respiratory effort, no retractions, no use of accessory muscles and clear to auscultation bilaterally Auscultation: Negative for rales, rhonchi or wheezes Cardio regular rate, regular rhythm, S1 normal heart sound, S2 normal heart sound, no murmurs, no rub and no gallops GI normal to inspection, nondistended, normoactive bowel sounds, soft to palpation, non-tender and non-distended Extremity no clubbing, cyanosis or edema Skin no rashes or lesions noted General Skin Exam: no breakdown Neuro oriented x3, CN's II-XII intact bilaterally, moves all extremities, no focal motor deficits and no sensory deficits noted Sensorium / Orientation: awake, alert, oriented to person and oriented to place Speech: speech normal Psych affect normal On 11/17/2022, patient was transferred to the rehab unit at [facility] in stable condition Weight / BMI Weight Weight: 138.8 kg Body Mass Index (BMI) 38.2 ABG / Lab / Microbiology Data 11/12/22 03:54 11/17/22 06:15 Laboratory: Laboratory Results - last 24 hr 11/17/22 06:15: Sodium 148 H, Potassium 3.9, Chloride 116 H, Carbon Dioxide 27.0, Anion Gap 5, BUN 20 H, Creatinine 2.65 H, Estim Creat Clear Calc 36.32, Est GFR (MDRD) Af Amer 32 L, Est GFR (MDRD) Non-Af 26 L, BUN/Creatinine Ratio 7.5 L, Glucose 86, Calcium 8.6 Microbiology: Microbiology 11/04/22 18:30 Stool Ova and Parasites - Final 11/05/22 18:00 Incision/Surgical Site Gram Stain - Final 11/05/22 18:00 Incision/Surgical Site Wound Culture - Final No growth aerobically. 11/05/22 18:00 Incision/Surgical Site Anaerobic Culture - Final No growth in 5 days. 11/04/22 13:20 Fluid - Synovial (joint) Gram Stain - Final 11/04/22 13:20 Fluid - Synovial (joint) Body Fluid Culture - Final No growth aerobically. 11/04/22 13:20 Fluid - Synovial (joint) Anaerobic Culture - Final No growth in 5 days. 11/03/22 18:11 Blood Culture (Wb) - Anticubital Left Blood Culture - Final No growth in 5 days. 11/03/22 18:17 Blood Culture (Wb) - Anticubital Right Blood Culture - Final No growth in 5 days. 11/04/22 18:30 Stool C. difficile GDH Antigen & Toxins - Final Toxigenic C. difficile Meaningful Use Info Meaningful Use Diagnoses (Choose all that apply): None applicable Discharge Plan Admission Admit Date/Time: 11/03/22 22:47 Primary Reason for Your Visit: Right hip septic arthritis, acute kidney injury requiring dialysis Attending Provider: Jhonny Bullock Primary Care Provider: Eleazar Hernandez Consulting Providers: Julito Kumar; Solitario Arriaza; Franc James; Harshad Escalona; Ky Riojas; Lizandro Frye; Rupesh Brooks; Mayito Cummings; Marcelino Michaud; Arline Villarreal NP; Melvin Rankin; Radha Shin; Nathan Hemphill; Sean Zheng Discharge Orders/Prescriptions Prescriptions: New acetaminophen 500 mg Tablet 1,000 mg PO Q8 Qty: 0 0RF ixgmpppmbv-thbqeifwifeyt-ihwf 50-325-40 mg Tablet 1 tab PO Q6H PRN PRN (Reason: Headache) Qty: 0 0RF daptomycin 500 mg Recon Soln 900 mg IV Q48H 20 Days Qty: 1 0RF Rx Instructions: Discontinue on 12/07/2022-total of 30 days treatment from 11/05/2022 vancomycin [Firvanq] 25 mg/mL Recon Soln 125 mg PO Q6 20 Days Qty: 400 0RF Rx Instructions: Discontinue after IV antibiotics have finished ceftriaxone 2 gram recon soln 2 g IV Q24H 20 Days Rx Instructions: Discontinue on 12/07/2022 Continued polyethylene glycol 3350 17 g PO/SL QHS alum-mag hydroxide-simeth [Mag-Al Plus Extra Strength] 400-400-40 mg/5 mL Suspension 15 ml PO Q6H PRN PRN (Reason: HEARTBURN OR INDIGESTION) Qty: 1 0RF ascorbic acid (vitamin C) 500 mg tablet 1,000 mg PO 1200 venlafaxine 150 mg Capsule,Extended Release 24hr 150 mg PO DAILY Qty: 30 0RF baclofen 10 mg Tablet 5 mg PO TID Qty: 90 0RF gabapentin 100 mg Capsule 200 mg PO TIDCM Qty: 90 0RF losartan 100 mg Tablet 100 mg PO DAILY Qty: 30 0RF sennosides-docusate sodium [Stool Softener-Stimulant Laxat] 8.6-50 mg Tablet 2 tab PO BID Qty: 120 0RF potassium chloride [Klor-Con M20] 20 mEq Tablet,Er Particles/Crystals 20 meq PO DAILYCM Qty: 30 0RF trazodone 100 mg Tablet 100 mg PO QHS Qty: 30 0RF oxycodone 10 mg tablet 10 mg PO Q6H PRN (Reason: pain) 7 Days Qty: 28 0RF clopidogrel [Plavix] 75 mg Tablet 75 mg PO DAILY Qty: 30 0RF pantoprazole 40 mg tablet,delayed release (DR/EC) 40 mg PO DAILY Qty: 30 0RF ferrous sulfate [FeroSul] 325 mg (65 mg iron) tablet 325 mg PO DAILY@1200 Qty: 30 0RF Rx Instructions: Take this medication with the Vitamin C and with a meal to improve absorption fenofibrate nanocrystallized 48 mg tablet 48 mg PO DAILYCM Qty: 30 0RF Eliquis 5 mg Tablet 5 mg PO BID Qty: 60 0RF Discontinued acetaminophen 325 mg Tablet 650 mg PO Q6H PRN (Reason: pain/fever) doxazosin 1 mg Tablet 1 mg PO QHS Qty: 30 0RF amlodipine 10 mg tablet 2.5 mg PO DAILY Patient Comments: per PCP changed dose recently. 10/30/22 No Action menthol-zinc oxide [Calmoseptine] 0.44-20.6 % Ointment 1 applic topical TID Protocol: *Topical Application Instructions APPLICATION INSTRUCTIONS: apply to buttocks/ coccyx, scrotum and groin. Rx Instructions: BILAT BUTTOCKS, GROIN, SCROTUM amlodipine 10 mg tablet 2.5 mg PO DAILY Patient Comments: 10 MG ORALLY DAILY doxazosin [Cardura] 2 mg tablet 2 mg PO QHS Referrals / Follow Up: Eleazar Hernandez DO [Primary Care Provider] - Nathan Hemphill DO [Med Staff - Active Staff] - See Referral Note (Dr. Hemphill will follow-up with the patient in the rehab unit) Disposition Disposition (needs filled in before D/C Order can be placed): Inpatient Rehab Unit/Facility Charges/Coding Visit Charges Inpatient E&M: 24431 Disch Hosp >30min
--- NOTE | 2022-11-17 18:07 | NURSING ---
Report called to [place] in Inpatient rehab. Pt being transported to room 406.
== END 2022-11-17 18:17 | DRG 480 ==
LOC: ED 17:50 → PCU 23:19 → ICU 11-10 17:32 → PCU 11-12 15:15
PROVIDERS: Anesthesiology; Internal Medicine; Internal Medicine Critical Care Medicine; Internal Medicine Infectious Disease; Nurse Practitioner Acute Care; Nurse Practitioner Adult Health; Student in an Organized Health Care Education/Training Program; Surgery; Admitting Provider Hospitalist; Emergency Provider Emergency Medicine; PCP Family Medicine; Visit Provider Internal Medicine
PROC: 0SB90ZZ Excision of Right Hip Joint, Open Approach (ICD-10-PCS; principal; 2022-11-05 15:20)
PROC: 02HV33Z Insertion of Infusion Device into Superior Vena Cava, Percutaneous Approach (ICD-10-PCS; principal; 2022-11-10 15:15)
DX: M00.9 Pyogenic arthritis, unspecified (principal); G93.41 Metabolic encephalopathy; N17.0 Acute kidney failure with tubular necrosis; A04.72 Enterocolitis due to Clostridium difficile, not specified as recurrent; Q21.12 Patent foramen ovale; D89.0 Polyclonal hypergammaglobulinemia; J44.9 Chronic obstructive pulmonary disease, unspecified; E66.01 Morbid (severe) obesity due to excess calories; I35.8 Other nonrheumatic aortic valve disorders; I10 Essential (primary) hypertension; K21.9 Gastro-esophageal reflux disease without esophagitis; G47.33 Obstructive sleep apnea (adult) (pediatric); G89.29 Other chronic pain; I49.3 Ventricular premature depolarization; R53.81 Other malaise; R73.03 Prediabetes; R45.1 Restlessness and agitation; X58.XXXA Exposure to other specified factors, initial encounter; Z68.36 Body mass index [BMI] 36.0-36.9, adult; Z79.01 Long term (current) use of anticoagulants; Z79.2 Long term (current) use of antibiotics; Z79.891 Long term (current) use of opiate analgesic; Z79.899 Other long term (current) drug therapy; Z86.73 Personal history of transient ischemic attack (TIA), and cerebral infarction without residual deficits; Z86.718 Personal history of other venous thrombosis and embolism; Z87.891 Personal history of nicotine dependence
CPT/HCPCS: 20610; 36415; 36569; 36600; 70450; 71045; 72125; 73552; 74177; 76770; 77001; 77002; 80048; 80053; 80069; 80076; 80202; 81001; 82140; 82570; 82607; 82746; 82803; 82962; 83605; 83735; 84100; 84300; 84443; 84484; 85025; 85610; 85652; 85730; 86140; 86850; 86900; 86901; 86920; 86922; 87040; 87070; 87075; 87102; 87177; 87205; 87206; 87209; 87340; 88108; 88305; 88313; 89050; 89051; 90937; 93005; 94668; 97110; 97116; 97162; 97166; 97530; 97533; 97535; 97802; 99284; J0878; J7030; J7040; J7050; J7120; P9016; Q9967; A4216; C1752; G0257; J0696; J2405; J3490

== ENCOUNTER 2022-11-17 18:20 | Inpatient (IN) | payer OTHER, SELFPAY ==
[2022-11-17 20:36] VITALS: BP 140/58; PULSE 89; RESP 16; TEMP 37.1; O2SAT 95
[2022-11-17 21:22] VITALS: BP 148/66; PULSE 86; RESP 15; TEMP 37.2; O2SAT 95
[2022-11-17] MEDS: oxyCODONE 5 MG Tablet 10 MG PO (22:02)
[2022-11-17] MEDS: Polyethylene Glycol 3350 17 GM PACKET PO ×2 (22:03→22:04)
[2022-11-17] MEDS: Menthol/Lanolin/Calamine/Znox 113 GM Tube 1 APPLIC TOPICAL (22:03)
[2022-11-17] MEDS: Senna/Docusate Sodium 1 Tablet 2 TABLET PO (22:03)
[2022-11-17] MEDS: APIXABAN 5 MG TABLET PO (22:04)
[2022-11-17] MEDS: traZODone 100 MG Tablet PO (22:04)
[2022-11-17] MEDS: Acetaminophen 500 MG Tablet 1000 MG PO (22:05)
[2022-11-17] MEDS: Baclofen 10 MG Tablet 5 MG PO (22:05)
[2022-11-17 22:06] VITALS: BMI 37.8
[2022-11-17 22:09] VITALS: PULSE 83; RESP 15; O2SAT 94
[2022-11-17] MEDS: Acetaminophen/Butalbital/Caffe 1 Tablet PO (22:11)
[2022-11-18] MEDS: 0.9% Saline Lock 10 ML Syringe IV (00:11)
[2022-11-18] MEDS: Vancomycin 125 MG/5 ML Susp PO.SYRINGE PO ×5 (00:11→23:04)
[2022-11-18 00:34] LABS: Mucous, Urine 0 SEEN /hpf (<or=2+); Red Blood Cells-Urine 0 SEEN /hpf (0-5); Squamous Epithelial Cells - UA 0 SEEN /hpf (0-5)
[2022-11-18 00:38] LABS: Color, Urine Yellow (Yellow); Glucose, Dipstick Normal (Normal); Ketone-Dipstick Negative (Negative); Leukocyte Esterase-Dipstick 25 /ul (Negative); Nitrite-Dipstick Negative (Negative); Occult Blood-Urine 10 /ul (Negative); Protein-Dipstick 15 mg/dl (Negative); Specific Gravity, Urine 1.005 (1.002-1.030); Urine Bilirubin Dipstick Negative (Negative); Urine Clarity Clear (Clear); Urine Urobilinogen Normal (Normal); Urine pH 6.5 (5.0 - 8.0)
[2022-11-18 00:46] LABS: Bacteria RARE /hpf (None Seen); White Blood Cells 0-5 SEEN /hpf (0-5)
[2022-11-18 01:11] VITALS: BP 146/56; PULSE 84; RESP 15; TEMP 37; O2SAT 94
[2022-11-18] MEDS: Acetaminophen 500 MG Tablet 1000 MG PO ×3 (05:41→22:54)
[2022-11-18] MEDS: Baclofen 10 MG Tablet 5 MG PO ×3 (05:41→22:53)
[2022-11-18] MEDS: Menthol/Lanolin/Calamine/Znox 113 GM Tube 1 APPLIC TOPICAL ×3 (05:41→22:55)
[2022-11-18 05:42] LABS: Absolute Lymphocyte Count 1.09 X10^3/uL (0.83-4.51); Absolute Neutrophil Count 5.7 X10^3/uL (2.0-7.7); Basophil# 0.04 X10^3/uL; Basophil% 0.5 % (0-1); Eosinophil# 0.22 X10^3/uL; Eosinophils% 2.8 % (0-5); Hematocrit 25.5 % (40-54); Hemoglobin 7.5 g/dL (13.0-16.5); Lymphocyte # 1.09 X10^3/ul (0.83-4.51); Lymphocyte % 13.8 % (19-41); Mean Corp Hgb Conc 29.4 g/dL (32-36); Mean Corpuscular Hgb 25.1 pg (27.0-32.0); Mean Corpuscular Volume 85.3 fL (80-94); Mean Platelet Vol. 9.7 fl (6.2-12.0); Monocyte# 0.83 X10^3/uL; Monocyte% 10.5 % (0-10); NRBC Flagged by Analyzer 0 % (0-5); Neutrophil # 5.66 X10^3/uL (2.7-7.7); Neutrophil % 71.5 % (47-70); Platelet Count 249 K/mm3 (150-450); RBC Distribution Width CV 19.4 % (11.6-14.6); RBC Distribution Width SD 59.7 fl (35.1-43.9); Red Blood Count 2.99 M/mm3 (4.6-6.2); White Blood Count 7.9 K/mm3 (4.4-11.0)
[2022-11-18 06:09] LABS: ALB/GLOB Ratio 0.5 RATIO (0.9-2.4); AST(SGOT) 7 U/L (15-37); Alanine Aminotransfer ALT/SGPT 11 U/L (16-61); Albumin, Serum 2.2 g/dL (3.2-5.0); Alkaline Phosphatase 80 U/L (45-117); Anion Gap 5 (5-15); BUN 17 mg/dL (7-18); BUN/Creat Ratio 7.9 RATIO (10-20); Calcium,Total 8.6 mg/dL (8.5-10.1); Chloride 114 mmol/L (98-107); Creatinine, Serum 2.15 mg/dL (0.70-1.30); EST Glomerular Filtration Rate 34 mL/min (>60); Est Glom Filt Rate - Afr Amer 41 mL/min (>60); Estimated Creatinine Clearance 44.76 ml/min; Globulin 4.2 g/dL (2.2-4.2); Glucose 88 mg/dL (74-106); Magnesium 1.7 mg/dL (1.6-2.6); Phosphorus 4.3 mg/dL (2.5-4.9); Potassium 3.7 mmol/L (3.5-5.1); Protein, Total 6.4 g/dL (6.4-8.2); Sodium Level 147 mmol/L (136-145)
[2022-11-18] MEDS: Potassium Chloride Oral Tablet 20 MEQ PO (09:17)
[2022-11-18] MEDS: Losartan Potassium 100 MG Tablet PO (09:18)
[2022-11-18] MEDS: APIXABAN 5 MG TABLET PO ×2 (09:18→22:53)
[2022-11-18] MEDS: Venlafaxine XR 150 MG Capsule PO (09:18)
[2022-11-18] MEDS: Pantoprazole Sodium 40 MG Tablet PO (09:18)
[2022-11-18] MEDS: Fenofibrate 48 MG Tablet PO (09:18)
[2022-11-18] MEDS: amLODIPine 10 MG Tablet PO (09:19)
[2022-11-18] MEDS: Gabapentin 100 MG Capsule 200 MG PO ×3 (09:25→17:07)
[2022-11-18 10:00] VITALS: BP 166/54; PULSE 89; RESP 18; TEMP 37; O2SAT 92
--- NOTE | 2022-11-18 11:10 | PCM.HP.STD ---
[facility] - General General Date of Admission: 11/17/22 Date of Service: 11/18/22 Chief Complaint: Physical debility due to septic R hip and C. Diff colitis. 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 He received 12 weeks of IV antibiotics. No organisms were ever cultured during any of his admissions. He was discharged from acute rehab on 10/09/2022. He was seen in the emergency department at [facility] on 11/03/2022 for intractable right hip pain and severe diarrhea. He was ultimately diagnosed with a septic right hip and C. Diff enterocolitis. He was started on PO Vanco for C. difficile and IV vancomycin and Zosyn for septic arthritis. On 11/05/2022 he had an irrigation and debridement of the right hip done by Dr. Hemphill. Cultures of the joint fluid had no growth. Whipple PCR was negative. He was seen by ID while in the hospital. Due to severe diarrhea, IV contrast, a Vanco trough of 50 and infection he experienced nonoliguric ARF and was seen by Nephrology. The creatinine peaked at 7.34 on 823 and the patient experienced symptoms of uremia. Dr. Escalona inserted a temporary dialysis catheter and he was dialyzed. He received dialysis on 11/11, 11/12 and 11/13. Serum creatinine came down to 3.39 and he continued to have good urine output. He has not needed any additional dialysis and the temporary dialysis catheter was removed prior to transfer to acute rehab. Al was transferred to the acute rehab unit at [facility] on 12/18/2022 for 3 hours of therapy daily to restore function/independence at or near his prior level of function. Antibiotics at discharge from the hospital include IV daptomycin, intravenous ceftriaxone and oral vancomycin, all 3 for 20 days. Albaro denies pain in the right hip. He also states his back pain is better than it was and he has been receiving injections for back pain. He slept well last night. Appetite is good. He is complaining of some pain in his scrotum and tells me it is very swollen. Afebrile VSS-systolic blood pressures are high and have ranged from 1 40-1 66 since transfer to acute rehab. The diastolics are within normal limits. Maintaining appropriate oxygen saturation on RA while awake but desaturates at night and required a nasal cannula last night. He had an abnormal overnight trending pulse ox at his last visit and was to have a outpatient sleep study. Oral intake is good Al tells me he only had 1 bowel movement today and it was somewhat loose. Weight today is 304.2 pounds which is up from 293 at admission to the hospital on 11/03/2022. Urine output since arriving on rehab is 1610 cc but, it is less than 24 hours since arrival. Discussed with nursing - no problems that need addressed Reviewed the PT/OT/ST notes Medication list reviewed. All lab from today was personally reviewed. The white blood cell count is normal at 7.9 with 71.5% neutrophils. Hemoglobin is low at 7.5 with an MCV of 85.3. Platelets are within normal limits. Chemistries show an elevated sodium at 147, a potassium of 3.7 and a BUN of 17 with a creatinine of 2.15 which is down from 2.65 on 11/17/2022. Magnesium is borderline low at 1.7 and phosphorus is normal at 4.3. LFTs are unremarkable. Albumin is low at 2.2. [facility] Medical History (Updated 11/18/22 @ 15:[address] Sylvie Plata, ) Abnormal LFTs Aortic valve regurgitation Cerebral edema Chronic anticoagulation Chronic back pain Chronic lower back pain Class 3 obesity Colon polyp COPD (chronic obstructive pulmonary disease) Dialysis patient DVT of lower limb, acute Dysarthria Elevated TSH Encephalopathy acute Family history of heart disease Former smoker GERD (gastroesophageal reflux disease) Gout HCAP (healthcare-associated pneumonia) Hearing loss, left Heme positive stool Hypertension Hyperuricemia Hypoalbuminemia Internal and external bleeding hemorrhoids Iron deficiency Left atrial enlargement Leukocytosis Normocytic hypochromic anemia Obesity Peripheral vascular disease PFO (patent foramen ovale) Physical debility Polyclonal gammopathy Prediabetes Presence of arterial stent QT prolongation Rheumatoid arthritis SAH (subarachnoid hemorrhage) Septic shock Stroke/cerebrovascular accident Superficial thrombophlebitis Home Medications polyethylene glycol 3350 17 g PO/SL QHS CONSTIPATION 07/23/22 [History Last Taken 07/22/22 08:10] aluminum-mag hydroxide-simethicone 400 mg-400 mg-40 mg/5 mL oral susp (Mag-Al Plus Extra Strength) 15 ml PO Q6H PRN PRN HEARTBURN OR INDIGESTION #1 mL 09/02/22 [Rx Last Taken Unknown] ascorbic acid (vitamin C) 500 mg tablet 1,000 mg PO 1200 supplement 09/15/22 [History Last Taken Unknown] apixaban 5 mg tablet (Eliquis) 5 mg PO BID Check with primary doctor #60 tabs 10/09/22 [Rx Last Taken Unknown] baclofen 10 mg tablet 5 mg (1/2 x 10 mg) PO TID MUSCLE RELAXER #90 tabs 10/09/22 [Rx Last Taken Unknown] clopidogrel 75 mg tablet (Plavix) 75 mg PO DAILY Check with primary doctor #30 tabs 10/09/22 [Rx Last Taken Unknown] fenofibrate nanocrystallized 48 mg tablet 48 mg PO DAILYCM Check with primary doctor #30 tabs 10/09/22 [Rx Last Taken Unknown] ferrous sulfate 325 mg (65 mg iron) tablet (FeroSul) 325 mg PO DAILY@1200 supplement #30 tabs 10/09/22 [Rx Last Taken Unknown] gabapentin 100 mg capsule 200 mg (2 x 100 mg) PO TIDCM NERVE PAIN #90 caps 10/09/22 [Rx Last Taken Unknown] losartan 100 mg tablet 100 mg PO DAILY HTN #30 tabs 10/09/22 [Rx Last Taken Unknown] oxycodone 10 mg tablet 10 mg PO Q6H PRN pain 7 days #28 tabs 10/09/22 [Rx Last Taken Unknown] pantoprazole 40 mg tablet,delayed release 40 mg PO DAILY Check with primary doctor #30 tabs 10/09/22 [Rx Last Taken Unknown] potassium chloride 20 mEq tablet,extended release(part/cryst) (Klor-Con M) 20 meq PO DAILYCM SUPPLEMENT #30 tabs 10/09/22 [Rx Last Taken Unknown] sennosides 8.6 mg-docusate sodium 50 mg tablet (Stool Softener-Stimulant Laxative) 2 tab PO BID STOOL SOFTENER #120 tabs 10/09/22 [Rx Last Taken Unknown] trazodone 100 mg tablet 100 mg PO QHS ANTIDEPRESSANT #30 tabs 10/09/22 [Rx Last Taken Unknown] venlafaxine 150 mg capsule,extended release 24 hr 150 mg PO DAILY DEPRESSION #30 caps 10/09/22 [Rx Last Taken Unknown] acetaminophen 500 mg tablet 1,000 mg (2 x 500 mg) PO Q8 pain #0 tabs 11/17/22 [Rx Last Taken Unknown] zzyqqxfjfk-fknjxckyzgaez-rqvnjkrw 50 mg-325 mg-40 mg tablet 1 tab PO Q6H PRN PRN Headache #0 tabs 11/17/22 [Rx Last Taken Unknown] ceftriaxone 2 gram intravenous solution 2 g IV Q24H ANTIBIOTIC 20 days 11/17/22 [Rx Last Taken Unknown] daptomycin 500 mg intravenous solution 900 mg IV Q48H ANTIBIOTIC 20 days #1 ea 11/17/22 [Rx Last Taken Unknown] menthol 0.44 %-zinc oxide 20.6 % topical ointment (Calmoseptine) 1 applic topical TID SKIN TREATMENT 11/17/22 [History Last Taken Unknown] vancomycin 25 mg/mL oral solution (Firvanq) 125 mg (5 mL) PO Q6 ANTIBIOTIC 20 days #400 mL 11/17/22 [Rx Last Taken Unknown] amlodipine 10 mg tablet 2.5 mg PO DAILY HTN 11/18/22 [History Last Taken Unknown] doxazosin 2 mg tablet (Cardura) 2 mg PO QHS heart 11/18/22 [History Last Taken Unknown] Allergy/AdvReac Type Severity Reaction Status Date / Time cephalexin Allergy Shortness Verified 11/03/22 14:41 of breath Family History Other Heart disease Surgical History H/O hand surgery History of bowel resection Hx of total knee arthroplasty 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 S/P PICC central line placement Social History household members: spouse Smoking Status: Former smoker alcohol intake: current alcohol intake frequency: holidays/special occasions only substance use type: does not use caffeine: No ROS Review of Systems ROS Unobtainable: Denies due to encephalopathy, due to endotracheal tube, due to mental condition or due to mental status Constitutional Constitutional: Reports change in weight, fatigue and weakness; Denies anorexia, chills, fever(s) or night sweats Eyes Eyes: Denies blurry vision, change in vision, eye pain or loss of vision ENT HEENT: Reports abnormal hearing; Denies dysphagia, headache(s), hearing loss, nasal congestion or sore throat Cardiovascular Cardiovascular: Reports dyspnea on exertion and edema; Denies chest pain, lightheadedness, orthopnea, palpitations, paroxysmal nocturnal dyspnea or syncope Respiratory/Chest Respiratory/Chest: Reports shortness of breath with exertion; Denies cough, dyspnea, shortness of breath at rest or wheezing Gastrointestinal Gastrointestinal: Reports loose stools; Denies abdominal pain, constipation, diarrhea, dyspepsia, dysphagia, hematemesis, hematochezia, nausea or vomiting Genitourinary Genitourinary: Reports scrotal swelling; Denies dysuria, hematuria, nocturia, urinary frequency, urinary hesitancy, urinary incontinence or urinary urgency Musculoskeletal Musculoskeletal: Reports back pain and joint pain; Denies joint swelling or neck pain Integumentary Integumentary: Denies erythema, jaundice, pruritus or rash Neurologic Neurologic: Denies confusion, disequilibrium, dizziness, focal weakness, headache(s), paresthesias, seizures or tremor(s) Psychiatric Psychiatric: Denies anxiety, depression, homicidal ideation or suicidal ideation Endocrine Endocrinology: Denies change in body appearance, polydipsia or polyuria Hematologic/Lymphatic Hematologic/Lymphatic: Denies easy bleeding, easy bruising or lymphadenopathy Allergic/Immunologic Allergic/Immunologic: Denies rhinitis, eczemia or asthma Vital Signs Vital Signs Vital Signs: 11/17/22 20:36 11/17/22 21:17 11/17/22 21:22 Temperature 98.8 F 98.9 F Temperature Source Temporal Temporal Pulse Rate 89 86 Pulse Strength Normal (2+) Respiratory Rate 16 15 Respiratory Effort Respiratory Depth Respiratory Pattern Blood Pressure 140/58 H 148/66 H Blood Pressure Mean 85 93 Blood Pressure Source Monitor Monitor Blood Pressure Position Semi-Fowlers Blood Pressure Location Right Arm Pulse Ox 95 95 Oxygen Delivery Method Room Air Room Air Oxygen Flow Rate (L/min) 11/17/22 22:09 11/18/22 01:11 11/18/22 09:48 Temperature 98.6 F Temperature Source Temporal Pulse Rate 83 84 Pulse Strength Normal (2+) Respiratory Rate 15 15 Respiratory Effort Normal Non-Labored Respiratory Depth Normal Respiratory Pattern Normal Blood Pressure 146/56 H Blood Pressure Mean 86 Blood Pressure Source Blood Pressure Position Blood Pressure Location Pulse Ox 94 94 Oxygen Delivery Method Nasal Cannula Nasal Cannula Oxygen Flow Rate (L/min) 2 2 11/18/22 10:00 Temperature 98.6 F Temperature Source Oral Pulse Rate 89 Pulse Strength Respiratory Rate 18 Respiratory Effort Respiratory Depth Respiratory Pattern Blood Pressure 166/54 H Blood Pressure Mean 91 Blood Pressure Source Monitor Blood Pressure Position Sitting Blood Pressure Location Right Arm Pulse Ox 92 Oxygen Delivery Method Room Air Oxygen Flow Rate (L/min) Weight Weight: 304 lb 3.806 oz Body Mass Index (BMI) 37.8 Physical Exam Const alert, oriented x3 and no apparent distress Constitutional Narrative: Sitting in the chair at the bedside. General Appearance: cooperative HEENT moist oral mucous membranes HEENT Narrative: No evidence of thrush. Eyes PERRL, EOMs intact bilaterally, conjunctivae normal and no scleral icterus Eyes Narrative: No change in vision General Eye: normal appearance of both eyes Neck no lymphadenopathy, supple, no JVD and no carotid bruits General: trachea midline Chest Chest: symmetrical chest wall rise Resp normal respiratory effort, no use of accessory muscles and clear to auscultation bilaterally Resp Narrative: Not tachypneic and no conversational dyspnea. Diminished breath sounds throughout, especially in the bases. No crackles and no wheezes. Cardio regular rate, regular rhythm, S1 normal heart sound, S2 normal heart sound, no rub and no gallops Cardio Narrative: I did not hear a murmur today but in the past he has had a soft systolic murmur at the second right intercostal space and a soft diastolic murmur also at the second right intercostal space. It was noisy in the room. No ectopy and no tachycardia. Heart sounds are somewhat distant and this is likely secondary to body habitus. GI normal to inspection, nondistended, normoactive bowel sounds, soft to palpation and non-tender GI Narrative: No guarding with palpation. Narrative: The scrotum is swollen......likely due to fluid overload with third spacing due to hypoalbuminemia. Postvoid residuals are minimal. Back/Spine Back/Spine Narrative: Back pain is much better than it was at the previous admission. Denies radiation into the legs. No paresthesias in his LE's. Extremity Extremity Narrative: No clubbing, no cyanosis. He does have pitting edema of his lower extremities but it is better today because his legs have been wrapped with Francisco J wraps bilaterally. Skin no wounds, no jaundice and no mottling Skin Narrative: No rashes, no skin breakdown. General Skin Exam: no breakdown Rashes: no rashes Wound Narrative: He has a small scab at the puncture site where the Temp HD catheter was inserted. No erythema and no discharge. Neuro oriented x3 and CN's II-XII intact bilaterally Neuro Narrative: Speech is normal and fluent. Psych affect normal Psych Narrative: Appropriate, making good eye contact. Able to stay on topic and focus. No flight of ideas. Does not appear anxious or depressed. Conversant and relating well to staff. Results Lab / Micro Data 11/18/22 05:34 11/18/22 05:34 Labs: Laboratory Results - last 24 hr 11/17/22 23:55: Urine Color Yellow, Urine Clarity Clear, Urine pH 6.5, Ur Specific [place] 1.005, Urine Protein 15 H, Urine Glucose (UA) Normal, Urine Ketones Negative, Urine Occult Blood 10 H, Urine Nitrite Negative, Urine Bilirubin Negative, Urine Urobilinogen Normal, Ur Leukocyte Esterase 25 H, Urine RBC 0 SEEN, Urine WBC 0-5 SEEN, Ur Squamous Epith Cells 0 SEEN, Urine Bacteria RARE, Urine Mucus 0 SEEN 11/18/22 05:34: WBC 7.9, RBC 2.99 L, Hgb 7.5 L, Hct 25.5 L, MCV 85.3, MCH 25.1 L, MCHC 29.4 L, RDW Std Deviation 59.7 H, RDW Coeff of Ghassan 19.4 H, Plt Count 249, MPV 9.7, Immature Gran % (Auto) 0.900, Neut % (Auto) 71.5 H, Lymph % (Auto) 13.8 L, [place] % (Auto) 10.5 H, Eos % (Auto) 2.8, Baso % (Auto) 0.5, Absolute Neuts (auto) 5.7, Absolute Lymphs (auto) 1.09, Nucleated RBC % 0, Sodium 147 H, Potassium 3.7, Chloride 114 H, Carbon Dioxide 28.0, Anion Gap 5, BUN 17, Creatinine 2.15 H, Estim Creat Clear Calc 44.76, Est GFR (MDRD) Af Amer 41 L, Est GFR (MDRD) Non-Af 34 L, BUN/Creatinine Ratio 7.9 L, Glucose 88, Calcium 8.6, Phosphorus 4.3, Magnesium 1.7, Total Bilirubin 0.20, AST 7 L, ALT 11 L, Alkaline Phosphatase 80, Total Protein 6.4, Albumin 2.2 L, Globulin 4.2, Albumin/Globulin Ratio 0.5 L Assessment & Plan Assessment/Plan (1) Physical debility: (2) Septic arthritis of hip: QUALIFIERS: Laterality: right Septic arthritis organism: due to unspecified organism Qualified Code(s): M00.9 - Pyogenic arthritis, unspecified PLAN: Cultures are negative. Whipple's PCR negative. (3) C. difficile colitis: (4) Anemia: QUALIFIERS: Anemia type: unspecified type Qualified Code(s): D64.9 - Anemia, unspecified PLAN: He has a history of iron deficiency anemia. (5) Elevated anti-tissue transglutaminase (tTG) IgA level: PLAN: He has seen Dr. Vizcaino and he feels the increase in the IgA is due to infection/inflammation. 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 (7) Vertebral osteomyelitis, acute: PLAN: Treated with 6 weeks of IV antibiotics. (8) Polyclonal gammopathy: (9) Chronic lower back pain: QUALIFIERS: Back pain laterality: bilateral Sciatica presence: without sciatica Qualified Code(s): M54.50 - Low back pain, unspecified; G89.29 - Other chronic pain (10) Aortic valve regurgitation: QUALIFIERS: Cardiac valve disease etiology: nonrheumatic Qualified Code(s): I35.1 - Nonrheumatic aortic (valve) insufficiency PLAN: This is severe and he is following with Dr. Christensen. The plan is to have an AV replacement when he is cleared of all infection. This will be done at [facility]. He will also need to have th PFO closed. (11) PFO (patent foramen ovale): PLAN: On anticoagulation. (12) Hypernatremia: (13) DVT of lower limb, acute: QUALIFIERS: Affected thrombotic vein of extremity: unspecified lower extremity distal vein Laterality: right Qualified Code(s): I82.4Z1 - Acute embolism and thrombosis of unspecified deep veins of right distal lower extremity PLAN: This occurred after a a stent to the RLE. 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 Because he had a hemorrhagic transformation of CVA he could not be placed on anticoagulation initially and a temporary IVC filter was placed. Repeat venous US on 09/16/22 showed no evidence of DVT. PLAN: Plan PLAN PT for gait stability OT for ADL's ST for evaluation Analgesics as needed Bowel protocol Fall precautions Assess for Anxiety/Depression GI prophylaxis with pantoprazole DVT prophylaxis with he is on full dose Eliquis for patent foramen ovale with history of multiple embolic strokes. Follow up with PCP, ID, Dr. Hemphill, Dr. Russo and Dr. Christensen following DC from Rehab AM lab including CMP, CBC, Mag and Phos - all personally reviewed. Continue intravenous daptomycin and vancomycin for 20 days. Continue p.o. vancomycin for treatment of C. difficile enterocolitis for 20 days. Discussed removing the temporary IVC filter with Dr. Franc Donohue. Check iron studies. Charges/Coding Visit Charges Inpatient E&M: 13913 Init Hosp L3
[2022-11-18] MEDS: Ascorbic Acid 500 MG Tablet 1000 MG PO (12:44)
[2022-11-18] MEDS: Clopidogrel Bisulfate 75 MG Tablet PO (12:44)
[2022-11-18] MEDS: Ferrous Sulfate 325 MG Tablet PO (12:44)
[2022-11-18] MEDS: Albuterol 2.5 MG/3 ML VIAL.NEB. INHALATION (14:40)
[2022-11-18 14:54] VITALS: PULSE 91; RESP 16
--- NOTE | 2022-11-18 16:14 | CHAPLAIN ---
Type of Pastoral Visit ___ Initial Visit _x__ Follow-up Visit ___ On-call Visit ___ General Patient Visit ___ Spiritual Assessment ___ Family Conference ___ Bereavement ___ Rapid Response ___ Code Blue ___ Other (describe below) Pastoral Care Referral From _x__ Patient ___ Family ___ Nurse ___ Physician ___ Casing Blower ___ Meat Butcher ___ Other (describe below) Sacrament/Intervention _x__ Active listening ___ Anointing ___ Methodist ___ Bereavement ___ Communion _x__ Germania exploration ___ ___ Life review _x__ Prayer ___ Reconciliation ___ Sacrament of Sick _x__ Supportive presence ___ Wedding ___ Other (describe below) Pastoral Comments patient expressed thankfulness that this biometrics head came to visit him as I was hoping that you would come; pt describes new developments or infections that hinder his progress with health; pt speaks highly of his 's support for him; pt acknowledges that this has been a long road but that God is keeping him around; pt speaks about a future heart valve surgery; pt request is that his germania may grow; pt indicates that his son is very rastafari and helps him a lot in germania support; prayer and presence given
[2022-11-18 16:32] LABS: Ferritin 349 ng/mL (26-388); Iron 23 ug/dL (65-175); Iron Binding Capacity,Total 135 ug/dL (250-450)
--- NOTE | 2022-11-18 17:48 | PCM.RU.PYE ---
Admission Information Primary Diagnosis:: Debility secondary to septic arthritis right hip and C. difficile enterocolitis with acute renal failure. Status Changes from Prescreening?: No changes Identified Actual Problem List:: Infection, Pain, ALteration in Cmfrt, Depression, Alteration in Sleep, Mobility Impaired, Self Care Deficit, Alteration/ Air Exchange and Alteration-Leisure Activ. Potential Problem List:: DVT, Bleeding, Infection, UTI, Aspiration, Falls, Skin Integrity and Depression Risk of Complications DVT: ETELVINA Hose and - (ELIQUIS 5 mg p.o. twice daily) Bleeding: Monitor Lab Values, Nursing to Teach Precautions for anti-coagulation therapy., Wound, if applicable, to be assessed every shift. and Stroke patients assessed for lethargy or change in status. Infection: Clinical Staff to Monitor for S/S of infection: and S/S of infection include fever, redness, warmth, etc. Urinary Tract Infection: Monitor for frequency, burning, discomfort, or incontinence. and Nursing will obtain urine sample for urinalysis and C&S when ordered. Aspiration: Clinical staff will monitor for coughing, drooling, congestion., Speech will evaluate swallowing and dsyphasia. and Nursing will monitor patient swallowing during meals. Falls: Patient will be evaluated for Fall Precautions and Patient will be placed on Fall Precautions as indicated per protocol. Skin Breakdown: Nursing will assess skin daily using assessment tool. and Nursing will place on Skin Breakdown Precautions as indicated. Pain: Clinical staff will assess patient's pain level per protocol., Medications will be given, if needed, and the pain level reassessed. and Other methods: Massage, distraction, decrease stimulus, etc. used PRN. Plan of Care Patient requires physician specializing in physical medicine and rehab oversight to provide close medical supervision of rehab issues including: Pain Management, Sleep Problems, Bowel and Bladder, Medical and co-morbidity Management, DVT prophylaxis, Rehabilitation Leadership and Coordination of treatment team Patient needs Physical Therapy: For a minimum of 1 hour and At least 5 out of 7 days Patient needs Physical Therapy to improve:: Mobility, Strengthening, Transfers, Stretching, ROM, Endurance, Stairs, Gait and Balance Patient needs Occupational Therapy: For a minimum of 1 hour and At least 5 out of 7 days Patient needs Occupational Therapy to improve ADL's incl.: Eating, Grooming, Bathing, Dressing, Toileting, Toilet transfers, Community Reintegration, Higher functioning activities, Household tasks, Adaptive Equipment, Splinting and Other activities as determined Patient requires speech therapy: For a minimum of 1 hour and At least 5 out of 7 days Patient requires speech therapy for: Swallowing, Cognition, Language Skills and Compensatory Strategies Patient requires 24/ Rehabilitation Nursing for: Pain Issues, Identifying and preventing risk factors, Monitoring and reporting current medical conditions, Assisting with ambulation, transfer, and all ADL's, Teaching patients about disease process and medications, Family teaching, Providing safe environment, Bowel and Bladder Issues, Skin integrity and Medication Management Patient needs Track Machine Operator Repairer/ Case Management for: Discharge Planning, Arranging Home Equipment or Services and Family Interventions Patient needs Dietary and Nutrition Services for: Adequate Nutrition, Nutritional Supplements and Nutritional Education Goals Patient will remain: free from falls Patient will perform bed mobility at: MOD I level of assist. Patient will complete transfers from bed to chair at: MOD I level of assist. Patient will ambulate: - (300 feet with least restrictive device at mod I on various surfaces) Patient will complete upper body dressing at: MOD I level of assist. Patient will complete lower body dressing at: MOD I level of assist. (With adaptive equipment as needed.) Patient will complete toileting at: MOD I level of assist. Patient will perform bathing at: MOD I level of assist. (With standby assist for the first 1 to 2 weeks.) Patient will complete grooming at: MOD I level of assist. Patient will complete home management skills at: MOD I level of assist. Patient will achieve: - (5 steps with 1 handrail at standby assist) Patient will have pain level of: of 3 or less Patient's skin will: remain intact Patient will receive: adequate nutrition. Discharge Planning Estimated Length of stay (days): 21 Anticipated D/C Destination: Home with Outpt Therapy Was Preadmission Assessment Accurate?: Yes
[2022-11-18 19:39] VITALS: RESP 12
--- NOTE | 2022-11-18 19:44 | CPS ---
Pt put on BIPAP ST with 1L bleed in, Large Vitera FF mask used. Sleep lab unit used.
[2022-11-18 19:51] VITALS: BP 153/58; PULSE 88; RESP 18; TEMP 37.1; O2SAT 94
[2022-11-18 22:30] VITALS: PULSE 88; O2SAT 94
[2022-11-18] MEDS: Doxazosin 1 MG Tablet 2 MG PO (22:53)
[2022-11-18] MEDS: traZODone 100 MG Tablet PO (22:53)
[2022-11-18] MEDS: oxyCODONE 5 MG Tablet 10 MG PO (22:54)
--- NOTE | 2022-11-18 23:40 | CPS ---
pt took mask off states very uncomfortable
--- NOTE | 2022-11-19 01:37 | NURSING ---
0045 heard noise coming from pts room and found pt up and in the br. staff assisted back to the bed and reenforced that he needed to use the call light for assistance when going to the br. pt gait is noted to be unsteady with ambulation. fall strategies in place
--- NOTE | 2022-11-19 03:01 | NURSING ---
Reviewed and agree with Evangelina RAZA, documentation and assessment charting.
[2022-11-19] MEDS: Acetaminophen 500 MG Tablet 1000 MG PO ×3 (05:27→21:51)
[2022-11-19] MEDS: Vancomycin 125 MG/5 ML Susp PO.SYRINGE PO ×4 (05:27→23:02)
[2022-11-19] MEDS: oxyCODONE 5 MG Tablet 10 MG PO ×3 (05:27→21:49)
[2022-11-19] MEDS: Baclofen 10 MG Tablet 5 MG PO ×3 (05:27→21:50)
[2022-11-19] MEDS: Menthol/Lanolin/Calamine/Znox 113 GM Tube 1 APPLIC TOPICAL ×3 (05:31→21:51)
[2022-11-19] MEDS: APIXABAN 5 MG TABLET PO ×2 (08:45→21:51)
[2022-11-19] MEDS: Pantoprazole Sodium 40 MG Tablet PO (08:46)
[2022-11-19] MEDS: Clopidogrel Bisulfate 75 MG Tablet PO (08:46)
[2022-11-19] MEDS: Venlafaxine XR 150 MG Capsule PO (08:46)
[2022-11-19] MEDS: Losartan Potassium 100 MG Tablet PO (08:46)
[2022-11-19] MEDS: amLODIPine 10 MG Tablet PO (08:47)
[2022-11-19] MEDS: Potassium Chloride Oral Tablet 20 MEQ PO (08:47)
[2022-11-19] MEDS: Fenofibrate 48 MG Tablet PO (08:47)
[2022-11-19] MEDS: Gabapentin 100 MG Capsule 200 MG PO ×3 (08:50→19:01)
[2022-11-19 08:56] VITALS: BP 143/72; PULSE 90; RESP 16; TEMP 36.9; O2SAT 96
[2022-11-19] MEDS: 0.9% Saline Lock 10 ML Syringe IV (09:42)
[2022-11-19] MEDS: Ascorbic Acid 500 MG Tablet 1000 MG PO (13:04)
[2022-11-19] MEDS: Ferrous Sulfate 325 MG Tablet PO (13:04)
--- NOTE | 2022-11-19 16:39 | PCM.PN.ORT ---
Subjective Subjective Patient seen and examined. Ambulating well without complaints of hip pain on the right side. Denies any fevers, chills, nausea vomiting, chest pain or shortness of breath. Diarrhea has resolved. Objective Data Objective Data Vital Signs: Vital Signs Temp Pulse Resp BP Pulse Ox O2 Del Method O2 Flow Rate 98.4 F 90 16 143/72 H 96 Room Air 2 11/19/22 08:56 11/19/22 08:56 11/19/22 08:56 11/19/22 08:56 11/19/22 08:56 11/19/22 08:56 11/18/22 01:11 Oxygen Flow Rate (L/min) 2 Oxygen Delivery Method Room Air Weight: 304 lb 3.806 oz Body Mass Index (BMI) 37.8 Intake & Output: Intake and Output for Last 24 Hours 11/17/22 11/18/22 11/19/22 23:59 23:59 23:59 Intake Total 540 / 940 1375 / 1375 644 / 644 Output Total 725 / 1425 1850 / 1850 650 / 650 Balance -185 / -485 -475 / -475 -6 / -6 Lab / Micro Data 11/18/22 05:34 11/18/22 05:34 Physical Exam Narrative General - A&Ox3, NAD. VSS/AF Right lower extremity -incisional dressing C/D/I. Dressing removed. Wound is well-healed. Sutures in place. No erythema or drainage. No pain with logroll right hip. SILT Sural, Saphenous, SPN, DPN, Tibial N. distributions. DP, PT 2+. BCR. DF, PF, EHL 5/5. No calf TTP. Assessment & Plan Assessment/Plan (1) Septic arthritis of hip: QUALIFIERS: Septic arthritis organism: due to unspecified organism Laterality: right Qualified Code(s): M00.9 - Pyogenic arthritis, unspecified PLAN: 2 weeks status post right hip I&D Cultures negative. 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 No hip precautions. Sutures to be removed by nursing staff Patient has no complaints of hip pain at this time. I recommend follow-up on an as-needed basis. Please do not hesitate to call if any questions or concerns arise.
[2022-11-19 19:56] VITALS: BP 159/66; PULSE 92; RESP 17; TEMP 36.9; O2SAT 92
[2022-11-19] MEDS: Polyethylene Glycol 3350 17 GM PACKET PO (21:49)
[2022-11-19] MEDS: traZODone 100 MG Tablet PO (21:50)
[2022-11-19] MEDS: Doxazosin 1 MG Tablet 2 MG PO (21:51)
[2022-11-19] MEDS: 0.9 % NaCl (Sterile) Posiflush 10 mL IV (21:54)
--- NOTE | 2022-11-19 22:10 | CPS ---
Pt refused PAP therapy for the night, wanting to just wear O2. Pt stated that his is bringing in his own machine tomorrow.
[2022-11-20] MEDS: Acetaminophen 500 MG Tablet 1000 MG PO ×3 (06:22→22:18)
[2022-11-20] MEDS: Baclofen 10 MG Tablet 5 MG PO ×3 (06:22→22:18)
[2022-11-20] MEDS: Vancomycin 125 MG/5 ML Susp PO.SYRINGE PO ×4 (06:22→23:07)
[2022-11-20] MEDS: Menthol/Lanolin/Calamine/Znox 113 GM Tube 1 APPLIC TOPICAL ×3 (06:24→22:27)
[2022-11-20 06:41] VITALS: BMI 36.7
[2022-11-20] MEDS: Potassium Chloride Oral Tablet 20 MEQ PO (07:45)
[2022-11-20] MEDS: Gabapentin 100 MG Capsule 200 MG PO ×3 (07:45→17:01)
[2022-11-20] MEDS: Clopidogrel Bisulfate 75 MG Tablet PO (07:46)
[2022-11-20] MEDS: Venlafaxine XR 150 MG Capsule PO (07:46)
[2022-11-20] MEDS: Pantoprazole Sodium 40 MG Tablet PO (07:46)
[2022-11-20] MEDS: Losartan Potassium 100 MG Tablet PO (07:46)
[2022-11-20] MEDS: APIXABAN 5 MG TABLET PO ×2 (07:47→22:17)
[2022-11-20] MEDS: Fenofibrate 48 MG Tablet PO (07:48)
[2022-11-20] MEDS: amLODIPine 10 MG Tablet PO (07:49)
[2022-11-20 09:04] VITALS: BP 124/57; PULSE 93; RESP 15; TEMP 37.3; O2SAT 95
--- NOTE | 2022-11-20 11:10 | PN_ITS ---
Subjective Subjective Afebrile VSS Maintaining appropriate oxygen saturation on RA Oral intake is improving Weight today is 295.6 pounds........ he weighed 293.2 pounds at admission to the hospital and with hydration his weight had increased to 326.7 pounds. The edema in the legs and scrotum is gradually resolving. Good urine OP. Discussed with nursing - no problems that need addressed Reviewed the PT/OT/ST notes Medication list reviewed. He is c/o pain in the scrotum/testes due to the large amount of swelling. This makes it very uncomfortable to sit in a chair. He forgot to tell his to purchase a jock strap and I told her last night so she will be bringing it in on her next visit. She will also be bringing his CPAP mask from home. In the interim we will be using O2 when he is sleeping. He is also c/o back pain. He is ordered Oxycodone 10 mg Q 6H PRN and has not been asking for it as often as he could get it. He denies pain in the right hip. He also denies chest pain, lightheadedness, shortness of breath, cough, nausea/vomiting/abdominal pain, dysuria and calf pain. Stool is loose but he is not having frequent stools. Objective Data Objective Data Vital Signs: Vital Signs Temp Pulse Resp BP Pulse Ox O2 Del Method O2 Flow Rate 99.2 F H 93 15 124/57 H 95 Room Air 2 11/20/22 09:04 11/20/22 09:04 11/20/22 09:04 11/20/22 09:04 11/20/22 09:04 11/20/22 09:04 11/18/22 01:11 Oxygen Flow Rate (L/min) 2 Oxygen Delivery Method Room Air Weight: 295 lb 10.238 oz Body Mass Index (BMI) 36.7 Intake & Output: Intake and Output for Last 24 Hours 11/18/22 11/19/22 11/20/22 23:59 23:59 23:59 Intake Total 1375 / 1375 1244 / 1244 450 / 450 Output Total 1850 / 1850 1300 / 1300 1150 / 1150 Balance -475 / -475 -56 / -56 -700 / -700 Lab / Micro Data 11/18/22 05:34 11/18/22 05:34 Micro: Microbiology 11/17/22 23:55 Urine, Clean Catch Urine Culture - Final Culture exhibits no growth. Physical Exam Const alert and oriented x3 Constitutional Narrative: Looks uncomfortable sitting on the edge of the bed. General Appearance: cooperative Resp normal respiratory effort and clear to auscultation bilaterally Effort and Inspection: Negative for tachypneic Auscultation: diminished lung sounds Cardio regular rate, regular rhythm and no gallops GI normal to inspection, nondistended, normoactive bowel sounds, soft to palpation and non-tender GI Narrative: The scrotum remains very swollen and the foreskin is also swollen. He has pain when sitting and it feels better when supported. Extremity Extremity Narrative: Edema in the legs continues to improve. Skin General Skin Exam: no breakdown Rashes: no rashes Wound Narrative: the R hip incision is well coapted with no dehiscence. The jabari were removed last night. There is no purulent DC and no shae-incisional erythema. Psych affect normal Assessment & Plan Assessment/Plan (1) Physical debility: (2) Septic arthritis of hip: QUALIFIERS: Septic arthritis organism: due to unspecified organism Laterality: right Qualified Code(s): M00.9 - Pyogenic arthritis, unspecified PLAN: Cultures are negative. Whipple's PCR negative. (3) C. difficile colitis: (4) Anemia: QUALIFIERS: Anemia type: unspecified type Qualified Code(s): D64.9 - Anemia, unspecified PLAN: He has a history of iron deficiency anemia. (5) Elevated anti-tissue transglutaminase (tTG) IgA level: PLAN: He has seen Dr. Vizcaino and he feels the increase in the IgA is due to infection/inflammation. 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 (7) Vertebral osteomyelitis, acute: PLAN: Treated with 6 weeks of IV antibiotics. (8) Polyclonal gammopathy: (9) Chronic lower back pain: QUALIFIERS: Back pain laterality: bilateral Sciatica presence: without sciatica Qualified Code(s): M54.50 - Low back pain, unspecified; G89.29 - Other chronic pain (10) Aortic valve regurgitation: QUALIFIERS: Cardiac valve disease etiology: nonrheumatic Qualified Code(s): I35.1 - Nonrheumatic aortic (valve) insufficiency PLAN: This is severe and he is following with Dr. Christensen. The plan is to have an AV replacement when he is cleared of all infection. This will be done at [facility]. He will also need to have th PFO closed. (11) PFO (patent foramen ovale): PLAN: On anticoagulation. (12) Hypernatremia: (13) DVT of lower limb, acute: QUALIFIERS: Affected thrombotic vein of extremity: unspecified lower extremity distal vein Laterality: right Qualified Code(s): I82.4Z1 - Acute embolism and thrombosis of unspecified deep veins of right distal lower extremity PLAN: This occurred after a a stent to the RLE. 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 Because he had a hemo rrhagic transformation of CVA he could not be placed on anticoagulation initially and a temporary IVC filter was placed. Repeat venous US on 09/16/22 showed no evidence of DVT. PLAN: Plan 1. Continue therapy 2. He was using Xtampza ER [address] Russo but, I hesitate to use this with renal failure. Last CREAT CL only 44. At 44 I also do not favor using MS CONTIN. the hospital now has SL buprenorphine and the dose does not have to be adjusted for renal failure. We will start with 2 mg sublingual every 8 hours. 3. Recheck a BMP in the AM and a Charges/Coding Visit Charges Inpatient E&M: 94105 Subs Hosp L2
[2022-11-20] MEDS: Ascorbic Acid 500 MG Tablet 1000 MG PO (11:57)
[2022-11-20] MEDS: Ferrous Sulfate 325 MG Tablet PO (11:58)
[2022-11-20] MEDS: oxyCODONE 5 MG Tablet 10 MG PO (12:03)
[2022-11-20] MEDS: Buprenorphine HCl 2 MG TAB.SUBL SL ×2 (13:26→22:22)
[2022-11-20 19:52] VITALS: BP 135/58; PULSE 87; RESP 16; TEMP 37.2; O2SAT 95
[2022-11-20 22:00] VITALS: O2SAT 954
[2022-11-20] MEDS: Polyethylene Glycol 3350 17 GM PACKET PO (22:18)
[2022-11-20] MEDS: Senna/Docusate Sodium 1 Tablet 2 TABLET PO (22:18)
[2022-11-20] MEDS: traZODone 100 MG Tablet PO (22:19)
[2022-11-20] MEDS: Doxazosin 1 MG Tablet 2 MG PO (22:19)
--- NOTE | 2022-11-20 23:07 | CPS ---
[2258] Pt. wearing nasal cannula tonight to maintain appropriate oxygen status. Pt. claims he doesn't want to wear our BiPAP mask, and he stated that his is going to bring in his home unit tomorrow.
[2022-11-21] MEDS: Vancomycin 125 MG/5 ML Susp PO.SYRINGE PO ×4 (05:31→23:03)
[2022-11-21] MEDS: Baclofen 10 MG Tablet 5 MG PO ×3 (05:32→21:39)
[2022-11-21] MEDS: Acetaminophen 500 MG Tablet 1000 MG PO ×3 (05:32→21:39)
[2022-11-21] MEDS: Buprenorphine HCl 2 MG TAB.SUBL SL ×3 (05:36→21:38)
[2022-11-21] MEDS: Menthol/Lanolin/Calamine/Znox 113 GM Tube 1 APPLIC TOPICAL ×3 (05:37→21:41)
[2022-11-21 05:58] LABS: Hematocrit 26.2 % (40-54); Hemoglobin 7.7 g/dL (13.0-16.5)
[2022-11-21 06:25] LABS: Anion Gap 4 (5-15); BUN 16 mg/dL (7-18); BUN/Creat Ratio 10.8 RATIO (10-20); Calcium,Total 8.4 mg/dL (8.5-10.1); Chloride 115 mmol/L (98-107); Creatinine, Serum 1.48 mg/dL (0.70-1.30); EST Glomerular Filtration Rate 52 mL/min (>60); Est Glom Filt Rate - Afr Amer 63 mL/min (>60); Estimated Creatinine Clearance 65.02 ml/min; Glucose 89 mg/dL (74-106); Potassium 3.9 mmol/L (3.5-5.1); Sodium Level 148 mmol/L (136-145)
[2022-11-21] MEDS: oxyCODONE 5 MG Tablet 10 MG PO (08:24)
[2022-11-21] MEDS: Clopidogrel Bisulfate 75 MG Tablet PO (08:25)
[2022-11-21] MEDS: Fenofibrate 48 MG Tablet PO (08:25)
[2022-11-21] MEDS: Pantoprazole Sodium 40 MG Tablet PO (08:26)
[2022-11-21] MEDS: Potassium Chloride Oral Tablet 20 MEQ PO (08:26)
[2022-11-21] MEDS: APIXABAN 5 MG TABLET PO ×2 (08:26→21:40)
[2022-11-21] MEDS: Venlafaxine XR 150 MG Capsule PO (08:26)
[2022-11-21] MEDS: Losartan Potassium 100 MG Tablet PO (08:26)
[2022-11-21] MEDS: amLODIPine 10 MG Tablet PO (08:26)
[2022-11-21] MEDS: Senna/Docusate Sodium 1 Tablet 2 TABLET PO ×2 (08:27→21:38)
[2022-11-21] MEDS: Gabapentin 100 MG Capsule 200 MG PO ×3 (08:30→17:21)
[2022-11-21 09:20] VITALS: BP 129/52; PULSE 90; RESP 16; TEMP 37.1; O2SAT 93
[2022-11-21] MEDS: 0.9 % NaCl (Sterile) Posiflush 10 mL IV ×2 (09:34→12:10)
[2022-11-21 11:30] VITALS: O2SAT 94
[2022-11-21] MEDS: Ferrous Sulfate 325 MG Tablet PO (12:10)
[2022-11-21] MEDS: Ascorbic Acid 500 MG Tablet 1000 MG PO (12:12)
[2022-11-21] MEDS: Magnesium Hydroxide 30 ML UDC PO (14:16)
[2022-11-21 19:47] VITALS: BP 126/54; PULSE 90; RESP 18; TEMP 36.7; O2SAT 93
[2022-11-21] MEDS: traZODone 100 MG Tablet PO (21:38)
[2022-11-21] MEDS: Doxazosin 1 MG Tablet 2 MG PO (21:38)
[2022-11-21] MEDS: Polyethylene Glycol 3350 17 GM PACKET PO (21:39)
[2022-11-21 22:00] VITALS: PULSE 93; RESP 16; O2SAT 93; BMI 36.7
[2022-11-21 23:35] VITALS: PULSE 92; RESP 12; RESP 18; O2SAT 94
[2022-11-22] MEDS: 0.9 % NaCl (Sterile) Posiflush 10 mL IV (00:08)
--- NOTE | 2022-11-22 00:56 | CPS ---
PT HAD BIPAP ON WITH OWN MASK FOR LESS THEN 5 MIN-PT STATES DOES NOT LIKE ANYTHING ON HIS FACE-PLACE ON 2 L/M VIA NC FOR HS-NURSE AWARE
[2022-11-22] MEDS: Vancomycin 125 MG/5 ML Susp PO.SYRINGE PO ×4 (06:42→22:59)
[2022-11-22] MEDS: Baclofen 10 MG Tablet 5 MG PO ×3 (06:43→21:31)
[2022-11-22] MEDS: Acetaminophen 500 MG Tablet 1000 MG PO ×3 (06:43→21:30)
[2022-11-22] MEDS: Buprenorphine HCl 2 MG TAB.SUBL SL ×3 (06:46→21:29)
--- NOTE | 2022-11-22 07:40 | CPS ---
Patient has been using 2lpm nasal cannula at night instead of bipap.
[2022-11-22] MEDS: Clopidogrel Bisulfate 75 MG Tablet PO (07:54)
[2022-11-22] MEDS: Senna/Docusate Sodium 1 Tablet 2 TABLET PO ×2 (07:55→21:29)
[2022-11-22] MEDS: APIXABAN 5 MG TABLET PO ×2 (07:55→21:30)
[2022-11-22] MEDS: Potassium Chloride Oral Tablet 20 MEQ PO (07:56)
[2022-11-22] MEDS: Fenofibrate 48 MG Tablet PO (07:56)
[2022-11-22] MEDS: Losartan Potassium 100 MG Tablet PO (07:57)
[2022-11-22] MEDS: Venlafaxine XR 150 MG Capsule PO (07:57)
[2022-11-22] MEDS: amLODIPine 10 MG Tablet PO (07:58)
[2022-11-22] MEDS: Pantoprazole Sodium 40 MG Tablet PO (07:58)
[2022-11-22 08:02] VITALS: BP 143/67; PULSE 90; RESP 18; TEMP 36.9; O2SAT 97
[2022-11-22] MEDS: oxyCODONE 5 MG Tablet 10 MG PO ×2 (08:21→17:30)
[2022-11-22] MEDS: Gabapentin 100 MG Capsule 200 MG PO ×3 (08:21→17:26)
[2022-11-22] MEDS: Ferrous Sulfate 325 MG Tablet PO (12:33)
[2022-11-22] MEDS: Ascorbic Acid 500 MG Tablet 1000 MG PO (12:34)
[2022-11-22] MEDS: Menthol/Lanolin/Calamine/Znox 113 GM Tube 1 APPLIC TOPICAL ×2 (14:12→21:36)
[2022-11-22 14:54] VITALS: BMI 36.7
[2022-11-22 19:50] VITALS: BP 130/36; PULSE 90; RESP 17; TEMP 36.9; O2SAT 94
[2022-11-22] MEDS: traZODone 100 MG Tablet PO (21:29)
[2022-11-22 21:30] VITALS: O2SAT 94
[2022-11-22] MEDS: Doxazosin 1 MG Tablet 2 MG PO (21:30)
[2022-11-22] MEDS: Polyethylene Glycol 3350 17 GM PACKET PO (21:31)
[2022-11-22 21:49] VITALS: BMI 36.7
[2022-11-23] MEDS: Acetaminophen 500 MG Tablet 1000 MG PO ×3 (05:35→20:58)
[2022-11-23] MEDS: Buprenorphine HCl 2 MG TAB.SUBL SL ×3 (05:35→20:52)
[2022-11-23] MEDS: Baclofen 10 MG Tablet 5 MG PO ×3 (05:36→20:57)
[2022-11-23] MEDS: Menthol/Lanolin/Calamine/Znox 113 GM Tube 1 APPLIC TOPICAL ×3 (05:38→20:59)
[2022-11-23] MEDS: Vancomycin 125 MG/5 ML Susp PO.SYRINGE PO ×3 (05:59→17:06)
[2022-11-23 06:43] VITALS: O2SAT 90
[2022-11-23 07:59] VITALS: BP 144/65; PULSE 82; RESP 18; TEMP 37.1; O2SAT 91
[2022-11-23] MEDS: Fenofibrate 48 MG Tablet PO (08:46)
[2022-11-23] MEDS: Potassium Chloride Oral Tablet 20 MEQ PO (08:46)
[2022-11-23] MEDS: Venlafaxine XR 150 MG Capsule PO (08:47)
[2022-11-23] MEDS: Losartan Potassium 100 MG Tablet PO (08:47)
[2022-11-23] MEDS: amLODIPine 10 MG Tablet PO (08:47)
[2022-11-23] MEDS: APIXABAN 5 MG TABLET PO ×2 (08:47→20:57)
[2022-11-23] MEDS: Clopidogrel Bisulfate 75 MG Tablet PO (08:48)
[2022-11-23] MEDS: Pantoprazole Sodium 40 MG Tablet PO (08:48)
[2022-11-23] MEDS: Senna/Docusate Sodium 1 Tablet 2 TABLET PO (08:49)
[2022-11-23] MEDS: oxyCODONE 5 MG Tablet 10 MG PO (08:59)
[2022-11-23] MEDS: Gabapentin 100 MG Capsule 200 MG PO ×3 (09:25→17:06)
[2022-11-23 09:29] VITALS: RESP 16; O2SAT 95
[2022-11-23 10:29] VITALS: BMI 36.7
[2022-11-23] MEDS: Ferrous Sulfate 325 MG Tablet PO (13:07)
[2022-11-23] MEDS: Ascorbic Acid 500 MG Tablet 1000 MG PO (13:08)
[2022-11-23 19:27] VITALS: BP 129/49; PULSE 89; RESP 16; TEMP 37.2; O2SAT 94
[2022-11-23] MEDS: Doxazosin 1 MG Tablet 2 MG PO (20:56)
[2022-11-23] MEDS: traZODone 100 MG Tablet PO (20:57)
[2022-11-23] MEDS: Polyethylene Glycol 3350 17 GM PACKET PO (20:58)
[2022-11-23 21:00] VITALS: BMI 36.7
[2022-11-24] MEDS: Vancomycin 125 MG/5 ML Susp PO.SYRINGE PO ×4 (00:03→17:16)
[2022-11-24] MEDS: Baclofen 10 MG Tablet 5 MG PO ×3 (04:55→22:24)
[2022-11-24] MEDS: Buprenorphine HCl 2 MG TAB.SUBL SL ×3 (04:55→22:24)
[2022-11-24] MEDS: Acetaminophen 500 MG Tablet 1000 MG PO ×3 (04:57→22:24)
[2022-11-24] MEDS: Menthol/Lanolin/Calamine/Znox 113 GM Tube 1 APPLIC TOPICAL ×3 (05:00→22:25)
[2022-11-24 07:56] VITALS: BP 125/58; PULSE 84; RESP 15; TEMP 37.1; O2SAT 92
[2022-11-24] MEDS: Gabapentin 100 MG Capsule 200 MG PO ×3 (08:19→17:16)
[2022-11-24] MEDS: Potassium Chloride Oral Tablet 20 MEQ PO (08:19)
[2022-11-24] MEDS: Clopidogrel Bisulfate 75 MG Tablet PO (08:20)
[2022-11-24] MEDS: Pantoprazole Sodium 40 MG Tablet PO (08:20)
[2022-11-24] MEDS: amLODIPine 10 MG Tablet PO (08:20)
[2022-11-24] MEDS: Venlafaxine XR 150 MG Capsule PO (08:20)
[2022-11-24] MEDS: Fenofibrate 48 MG Tablet PO (08:20)
[2022-11-24] MEDS: Losartan Potassium 100 MG Tablet PO (08:21)
[2022-11-24] MEDS: APIXABAN 5 MG TABLET PO ×2 (08:21→22:24)
--- NOTE | 2022-11-24 09:19 | CASEMGMT ---
Social Work IDT met with patient and for Team meeting. Discussed patient's progress in PT/OT/ST/SN. Educated to [facility] insurance with [employer] 11/24 and continued stay is not guaranteed with each review. Pt is on IV ATB Q48 through 12/07 and PO ATB. Pt does have wounds. still working full-time. Pt did not start with [facility] therapy at DC prior but okay to return at this DC. SW will continue to follow for DC planning. Samaria Ellington, UTILITY LOCATE TECHNICIAN [employer]
[2022-11-24] MEDS: Ascorbic Acid 500 MG Tablet 1000 MG PO (12:07)
[2022-11-24] MEDS: Ferrous Sulfate 325 MG Tablet PO (12:07)
--- NOTE | 2022-11-24 15:07 | PCM.PROGNOTE ---
Subjective Subjective L was seen on team rounds today. His Lise was present in the room. Afebrile VSS Maintaining appropriate oxygen saturation on RA Oral intake is [] Discussed with nursing - no problems that need addressed Reviewed the PT/OT/ST notes Medication list reviewed. Even though Lise brought in his CPAP mask from home he will not wear it and has been using oxygen at night. He is c/o soreness in the perianal area. Nursing has been using Calmoseptine and Nystatin without improvement. Al denies lightheadedness, vertigo, CP, SOB at rest, SOB with exertion, cough, nausea, vomiting, abd pain, diarrhea, constipation, dysuria, calf pain and ankle swelling. Objective Data Objective Data Vital Signs: Vital Signs Temp Pulse Resp BP Pulse Ox O2 Del Method O2 Flow Rate 98.7 F 84 15 125/58 H 92 Room Air 2 11/24/22 07:56 11/24/22 07:56 11/24/22 07:56 11/24/22 07:56 11/24/22 07:56 11/24/22 12:19 11/23/22 21:00 Oxygen Flow Rate (L/min) 2 Oxygen Delivery Method Room Air Weight: 295 lb 10.238 oz Body Mass Index (BMI) 36.7 Intake & Output: Intake and Output for Last 24 Hours 11/22/22 11/23/22 11/24/22 23:59 23:59 23:59 Intake Total 1237 / 1237 1243 / 1243 1365 / 1365 Output Total 1300 / 1300 1300 / 1300 1550 / 1550 Balance -63 / -63 -57 / -57 -185 / -185 Lab / Micro Data 11/21/22 05:48 11/21/22 05:48 Micro: Microbiology 11/17/22 23:55 Urine, Clean Catch Urine Culture - Final Culture exhibits no growth. Physical Exam Const alert, oriented x3 and no apparent distress General Appearance: cooperative Resp clear to auscultation bilaterally Effort and Inspection: Negative for tachypneic Auscultation: diminished lung sounds Cardio regular rate and regular rhythm GI normal to inspection, nondistended, normoactive bowel sounds, soft to palpation and non-tender Extremity no calf tenderness Extremity Narrative: scrotal edema is decreasing and he has less pain with the jock strap in place. General Extremity: Negative for edema Skin Wound Narrative: There is a coarse papular rash over both sides of the anal cleft. The papules/small nodules are painful and they are red in color. Can not determine if DC since there is a lot of Calmoseptine present. This could be a contact dermatitis but, he is no getting any cream or protectant that we did not use during his last visit to rehab and this did not happen. I suspect it is due to moisture/yeast related to all the diarrhea when he had C. DIFF. Neuro CN's II-XII intact bilaterally Psych affect normal Assessment & Plan Assessment/Plan (1) Physical debility: (2) Septic arthritis of hip: QUALIFIERS: Laterality: right Septic arthritis organism: due to unspecified organism Qualified Code(s): M00.9 - Pyogenic arthritis, unspecified PLAN: Cultures are negative. Nayeliipptracy's PCR negative. (3) C. difficile colitis: (4) Anemia: QUALIFIERS: Anemia type: unspecified type Qualified Code(s): D64.9 - Anemia, unspecified PLAN: He has a history of iron deficiency anemia. (5) Elevated anti-tissue transglutaminase (tTG) IgA level: PLAN: He has seen Dr. Vizcaino and he feels the increase in the IgA is due to infection/inflammation. 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 (7) Vertebral osteomyelitis, acute: PLAN: Treated with 6 weeks of IV antibiotics. (8) Polyclonal gammopathy: (9) Chronic lower back pain: QUALIFIERS: Back pain laterality: bilateral Sciatica presence: without sciatica Qualified Code(s): M54.50 - Low back pain, unspecified; G89.29 - Other chronic pain (10) Aortic valve regurgitation: QUALIFIERS: Cardiac valve disease etiology: nonrheumatic Qualified Code(s): I35.1 - Nonrheumatic aortic (valve) insufficiency PLAN: This is severe and he is following with Dr. Christensen. The plan is to have an AV replacement when he is cleared of all infection. This will be done at [facility]. He will also need to have th PFO closed. (11) PFO (patent foramen ovale): PLAN: On anticoagulation. (12) Hypernatremia: (13) DVT of lower limb, acute: QUALIFIERS: Affected thrombotic vein of extremity: unspecified lower extremity distal vein Laterality: right Qualified Code(s): I82.4Z1 - Acute embolism and thrombosis of unspecified deep veins of right distal lower extremity PLAN: This occurred after a a stent to the RLE. 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 Because he had a hemorrhagic transformation of CVA he could not be placed on anticoagulation initially and a temporary IVC filter was placed. Repeat venous US on 09/16/22 showed no evidence of DVT. (14) Monilial intertrigo: PLAN: Plan 1. Continue therapy 2. there was a med error made the night the pt came to rehab. Nursing did not enter the order for Rocephin 2 GM IV q 24H and so he has not had Rocephin since 11/17. Will notify Dr. Riojas and re-enter the Rocephin 2 GM IV Q24H now. 3. Order Diflucan for suspected monilial intertrigo. 150 mg weekly X 4 weeks. Keep the area as dry as possible.......continue Calmoseptine Charges/Coding Visit Charges Inpatient E&M: 10510 Subs Hosp L2
[2022-11-24 15:38] VITALS: BMI 36.7
--- NOTE | 2022-11-24 16:26 | CON.PCM.SX_ITS ---
Assessment & Plan Assessment/Plan (1) Presence of IVC filter: PLAN: -tolerating anticoagulation, but with likely open heart planned in future -will plan to leave filter at this time, with retrieve after recovered from AVR HPI Consult Data Date of Consult: 11/24/22 HPI Narrative HPI Narrative: PHILIP DU, is a 57 M who presents s/p ivc filter placement. Recently he was admitted with septic hip requiring I&D in OR. He also has severe aortic valve regurgitation with plans to have valve replacement at [facility] after infectious issues resolved. Currently he is in rehab and tolerating Eliquis. [facility] Medical History (Updated 11/24/22 @ 16:[address] Franc Donohue MD) Abnormal LFTs Aortic valve regurgitation Cerebral edema Chronic anticoagulation Chronic back pain Chronic lower back pain Class 3 obesity Colon polyp COPD (chronic obstructive pulmonary disease) Dialysis patient DVT of lower limb, acute Dysarthria Elevated TSH Encephalopathy acute Family history of heart disease Former smoker GERD (gastroesophageal reflux disease) Gout HCAP (healthcare-associated pneumonia) Hearing loss, left Heme positive stool Hypertension Hyperuricemia Hypoalbuminemia Internal and external bleeding hemorrhoids Iron deficiency Left atrial enlargement Leukocytosis Normocytic hypochromic anemia Obesity Peripheral vascular disease PFO (patent foramen ovale) Physical debility Polyclonal gammopathy Prediabetes Presence of arterial stent QT prolongation Rheumatoid arthritis SAH (subarachnoid hemorrhage) Septic shock Stroke/cerebrovascular accident Superficial thrombophlebitis Home Medications polyethylene glycol 3350 17 g PO/SL QHS CONSTIPATION 07/23/22 [History Last Taken 07/22/22 08:10] aluminum-mag hydroxide-simethicone 400 mg-400 mg-40 mg/5 mL oral susp (Mag-Al Plus Extra Strength) 15 ml PO Q6H PRN PRN HEARTBURN OR INDIGESTION #1 mL 09/02/22 [Rx Last Taken Unknown] ascorbic acid (vitamin C) 500 mg tablet 1,000 mg PO 1200 supplement 09/15/22 [History Last Taken Unknown] apixaban 5 mg tablet (Eliquis) 5 mg PO BID Check with primary doctor #60 tabs 10/09/22 [Rx Last Taken Unknown] baclofen 10 mg tablet 5 mg (1/2 x 10 mg) PO TID MUSCLE RELAXER #90 tabs 10/09/22 [Rx Last Taken Unknown] clopidogrel 75 mg tablet (Plavix) 75 mg PO DAILY Check with primary doctor #30 tabs 07/21/23 [Rx Last Taken Unknown] fenofibrate nanocrystallized 48 mg tablet 48 mg PO DAILYCM Check with primary doctor #30 tabs 10/09/22 [Rx Last Taken Unknown] ferrous sulfate 325 mg (65 mg iron) tablet (FeroSul) 325 mg PO DAILY@1200 supplement #30 tabs 10/09/22 [Rx Last Taken Unknown] gabapentin 100 mg capsule 200 mg (2 x 100 mg) PO TIDCM NERVE PAIN #90 caps 10/09/22 [Rx Last Taken Unknown] losartan 100 mg tablet 100 mg PO DAILY HTN #30 tabs 10/09/22 [Rx Last Taken Unknown] oxycodone 10 mg tablet 10 mg PO Q6H PRN pain 7 days #28 tabs 10/09/22 [Rx Last Taken Unknown] pantoprazole 40 mg tablet,delayed release 40 mg PO DAILY Check with primary doctor #30 tabs 10/09/22 [Rx Last Taken Unknown] potassium chloride 20 mEq tablet,extended release(part/cryst) (Klor-Con M) 20 meq PO DAILYCM SUPPLEMENT #30 tabs 10/09/22 [Rx Last Taken Unknown] sennosides 8.6 mg-docusate sodium 50 mg tablet (Stool Softener-Stimulant Laxative) 2 tab PO BID STOOL SOFTENER #120 tabs 10/09/22 [Rx Last Taken Unknown] trazodone 100 mg tablet 100 mg PO QHS ANTIDEPRESSANT #30 tabs 10/09/22 [Rx Last Taken Unknown] venlafaxine 150 mg capsule,extended release 24 hr 150 mg PO DAILY DEPRESSION #30 caps 10/09/22 [Rx Last Taken Unknown] acetaminophen 500 mg tablet 1,000 mg (2 x 500 mg) PO Q8 pain #0 tabs 11/17/22 [Rx Last Taken Unknown] hkksuybvvg-inhqjsdemvhwy-nifuwsoe 50 mg-325 mg-40 mg tablet 1 tab PO Q6H PRN PRN Headache #0 tabs 11/17/22 [Rx Last Taken Unknown] ceftriaxone 2 gram intravenous solution 2 g IV Q24H ANTIBIOTIC 20 days 11/17/22 [Rx Last Taken Unknown] daptomycin 500 mg intravenous solution 900 mg IV Q48H ANTIBIOTIC 20 days #1 ea 11/17/22 [Rx Last Taken Unknown] menthol 0.44 %-zinc oxide 20.6 % topical ointment (Calmoseptine) 1 applic topical TID SKIN TREATMENT 11/17/22 [History Last Taken Unknown] vancomycin 25 mg/mL oral solution (Firvanq) 125 mg (5 mL) PO Q6 ANTIBIOTIC 20 days #400 mL 11/17/22 [Rx Last Taken Unknown] amlodipine 10 mg tablet 2.5 mg PO DAILY HTN 11/18/22 [History Last Taken Unk nown] doxazosin 2 mg tablet (Cardura) 2 mg PO QHS heart 11/18/22 [History Last Taken Unknown] Allergy/AdvReac Type Severity Reaction Status Date / Time cephalexin Allergy Shortness Verified 11/03/22 14:41 of breath Family History Other Heart disease Surgical History H/O hand surgery History of bowel resection Hx of total knee arthroplasty 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 S/P PICC central line placement Social History household members: spouse Smoking Status: Former smoker alcohol intake: current alcohol intake frequency: holidays/special occasions only substance use type: does not use caffeine: No ROS Constitutional Constitutional: Denies chills, fever(s), frequent falls, lethargy or weakness Eyes Eyes: Denies blind spots, change in vision or loss of vision ENT HEENT: Denies bleeding gums, hoarseness or sore throat Cardiovascular Cardiovascular: Denies abdominal pain, bluish discoloration of hand/feet, chest pain with activity, claudication, cold extremities, cyanosis, dyspnea on exertion, erythema on extremities, irregular heart rhythm, leg edema, leg ulcers, numbness in extremities or weakness in extremities Respiratory/Chest Respiratory/Chest: Denies cough, excessive phlegm production, shortness of breath at rest, shortness of breath with exertion or wheezing Gastrointestinal Gastrointestinal: Denies anorexia, change in stool character, constipation, diarrhea, melena or rectal bleeding Genitourinary Genitourinary: Denies dysuria or hematuria Musculoskeletal Musculoskeletal: Reports joint pain Integumentary Integumentary: Denies erythema, non-healing lesions or wounds Neurologic Neurologic: Denies abnormal speech, focal weakness, headache(s), loss of vision, numbness, paresthesias or sensory deficit Hematologic/Lymphatic Hematologic/Lymphatic: Denies easy bleeding, easy bruising or lymphadenopathy Physical Exam Const alert, oriented x3, no apparent distress and healthy appearing General Appearance: cooperative; Negative for combative or lethargic Orientation / Consciousness: awake Exam Limitations: no limitations HEENT Head and Scalp: normocephalic and atraumatic Eyes EOMs intact bilaterally General Eye: normal appearance of both eyes Neck full ROM, no lymphadenopathy and thyroid normal General: trachea midline; Negative for lymphadenopathy or tenderness Thyroid: thyroid normal Resp normal respiratory effort and no use of accessory muscles Effort and Inspection: Negative for labored, stridor or audible wheezes Cardio regular rate and regular rhythm Peripheral Pulses: brachial pulses present, radial pulses present, posterior ti bial pulses present and dorsalis pedis pulses present Back/Spine Cervical Spine: cervical ROM normal Extremity normal capillary refill and no clubbing, cyanosis or edema Skin no rashes or lesions noted and no wounds Neuro oriented x3, CN's II-XII intact bilaterally, no focal motor deficits and no sensory deficits noted Psych thought process normal, cooperative, affect normal, speech normal and activity/motor behavior normal Lab / Micro Data 11/21/22 05:48 11/21/22 05:48 Charges/Coding Visit Charges Inpatient E&M: 00956 Init Hosp L2
[2022-11-24] MEDS: FLUCONAZOLE 150 MG TABLET PO (17:17)
[2022-11-24] MEDS: 0.9% Saline Lock 10 ML Syringe IV (18:13)
[2022-11-24 19:30] VITALS: BP 145/56; PULSE 90; RESP 14; TEMP 36.8; O2SAT 94
[2022-11-24 22:00] VITALS: PULSE 92; RESP 14; O2SAT 94; BMI 36.7
[2022-11-24] MEDS: Doxazosin 1 MG Tablet 2 MG PO (22:24)
[2022-11-24] MEDS: traZODone 100 MG Tablet PO (22:25)
[2022-11-24] MEDS: Polyethylene Glycol 3350 17 GM PACKET PO (22:25)
[2022-11-25] MEDS: Vancomycin 125 MG/5 ML Susp PO.SYRINGE PO ×5 (00:03→17:09)
[2022-11-25 05:24] LABS: Hematocrit 25.6 % (40-54); Hemoglobin 7.3 g/dL (13.0-16.5); Mean Corp Hgb Conc 28.5 g/dL (32-36); Mean Corpuscular Hgb 24.3 pg (27.0-32.0); Mean Platelet Vol. 11.5 fl (6.2-12.0); Platelet Count 284 K/mm3 (150-450); RBC Distribution Width CV 19.1 % (11.6-14.6); RBC Distribution Width SD 59.7 fl (35.1-43.9); Red Blood Count 3.01 M/mm3 (4.6-6.2); White Blood Count 8.5 K/mm3 (4.4-11.0)
[2022-11-25 05:40] LABS: Anion Gap 2 (5-15); BUN 13 mg/dL (7-18); BUN/Creat Ratio 9.4 RATIO (10-20); Calcium,Total 8.8 mg/dL (8.5-10.1); Chloride 113 mmol/L (98-107); Creatinine, Serum 1.38 mg/dL (0.70-1.30); EST Glomerular Filtration Rate 56 mL/min (>60); Est Glom Filt Rate - Afr Amer 68 mL/min (>60); Estimated Creatinine Clearance 69.74 ml/min; Glucose 91 mg/dL (74-106); Potassium 3.9 mmol/L (3.5-5.1); Sodium Level 145 mmol/L (136-145)
[2022-11-25] MEDS: Menthol/Lanolin/Calamine/Znox 113 GM Tube 1 APPLIC TOPICAL ×3 (06:07→21:24)
[2022-11-25] MEDS: Baclofen 10 MG Tablet 5 MG PO ×3 (06:07→21:16)
[2022-11-25] MEDS: Buprenorphine HCl 2 MG TAB.SUBL SL ×3 (06:07→21:15)
[2022-11-25] MEDS: Acetaminophen 500 MG Tablet 1000 MG PO ×3 (06:07→21:16)
[2022-11-25 07:18] VITALS: BP 139/64; PULSE 85; RESP 16; TEMP 36.8; O2SAT 95
--- NOTE | 2022-11-25 07:28 | EKG12_ITS ---
Test Reason : CP Blood Pressure : / mmHG Vent. Rate : 081 BPM Atrial Rate : 081 BPM P-R Int : 166 ms QRS Dur : 106 ms QT Int : 448 ms P-R-T Axes : 059 026 065 degrees QTc Int : 520 ms Normal sinus rhythm Prolonged QT Abnormal ECG When compared with ECG of 14-NOV-2022 22:05, MANUAL COMPARISON REQUIRED, DATA IS UNCONFIRMED Confirmed by ILANA BAKER, FLACO ([id number]), film or videotape editor CORY STEINBERG ([id number]) on 12/29/2022 11:19:32 AM Referred By: Confirmed By:FLACO PRECIADO MD
--- NOTE | 2022-11-25 07:45 | NURSING ---
Addendum entered by Elizabet Briceño 11/25/22 09:23: Mylanta given and effective Original Note: pt c/o chest pressure this AM. No c/o other symptoms. no distress noted. VS WNL. EKG Complete. Dr Plata made aware. New orders for reflux medications. will continue to monitor
[2022-11-25 07:50] VITALS: BP 133/67; PULSE 80; RESP 18; TEMP 36.6; O2SAT 92
[2022-11-25] MEDS: Potassium Chloride Oral Tablet 20 MEQ PO (08:05)
[2022-11-25] MEDS: APIXABAN 5 MG TABLET PO ×2 (08:06→21:16)
[2022-11-25] MEDS: Clopidogrel Bisulfate 75 MG Tablet PO (08:06)
[2022-11-25] MEDS: Pantoprazole Sodium 40 MG Tablet PO ×2 (08:06→21:17)
[2022-11-25] MEDS: amLODIPine 10 MG Tablet PO (08:06)
[2022-11-25] MEDS: Losartan Potassium 100 MG Tablet PO (08:06)
[2022-11-25] MEDS: Fenofibrate 48 MG Tablet PO (08:06)
[2022-11-25] MEDS: Venlafaxine XR 150 MG Capsule PO (08:06)
[2022-11-25] MEDS: Gabapentin 100 MG Capsule 200 MG PO ×3 (08:06→17:09)
[2022-11-25] MEDS: Mag Hydrox/Al Hydrox/Simeth 30 ML UDC 15 ML PO (08:22)
[2022-11-25] MEDS: 0.9% Saline Lock 10 ML Syringe IV ×2 (08:57→10:11)
[2022-11-25] MEDS: Ascorbic Acid 500 MG Tablet 1000 MG PO (12:36)
[2022-11-25] MEDS: Ferrous Sulfate 325 MG Tablet PO (12:37)
--- NOTE | 2022-11-25 14:37 | PN_ITS ---
Subjective Subjective Afebrile VSS Maintaining appropriate oxygen saturation on RA Oral intake is good Diarrhea has resolved. Discussed with nursing - He c/o substernal chest pain this AM and an EKG was obtained. I reviewed the EKG at the time and it showed NSR with an incomplete RBBB in V1. No ST elevation and no significant ST depression. He had this complaint multiple times during the last admission to rehab and he is known to have reflux. The pain resolved with Mylanta. He has only been taking Protonix once daily.....will increase to BID which is what he was discharged on the last admission to rehab. Continue PRN Mylanta Reviewed the PT/OT/ST notes Medication list reviewed. No SOB, no cough, no palpitations, no N/V, diarrhea has resolved, no dysuria and no calf pain. Objective Data Objective Data Vital Signs: Vital Signs Temp Pulse Resp BP Pulse Ox O2 Del Method O2 Flow Rate 97.9 F 80 18 133/67 H 92 Room Air 2 11/25/22 07:50 11/25/22 07:50 11/25/22 07:50 11/25/22 07:50 11/25/22 07:50 11/25/22 07:50 11/23/22 21:00 Oxygen Flow Rate (L/min) 2 Oxygen Delivery Method Room Air Weight: 295 lb 10.238 oz Body Mass Index (BMI) 36.7 Intake & Output: Intake and Output for Last 24 Hours 11/23/22 11/24/22 11/25/22 23:59 23:59 23:59 Intake Total 1243 / 1243 1870 / 1870 1287.75 / 1287.75 Output Total 1300 / 1300 2150 / 2150 1000 / 1000 Balance -57 / -57 -280 / -280 287.75 / 287.75 Lab / Micro Data 11/25/22 05:08 11/25/22 05:08 Labs: Laboratory Results - last 24 hr 11/25/22 05:08: WBC 8.5, RBC 3.01 L, Hgb 7.3 L, Hct 25.6 L, MCV 85.0, MCH 24.3 L , MCHC 28.5 L, RDW Std Deviation 59.7 H, RDW Coeff of Ghassan 19.1 H, Plt Count 284, MPV 11.5, Sodium 145, Potassium 3.9, Chloride 113 H, Carbon Dioxide 30.0, Anion Gap 2 L, BUN 13, Creatinine 1.38 H, Estim Creat Clear Calc 69.74, Est GFR (MDRD) Af Amer 68, Est GFR (MDRD) Non-Af 56 L, BUN/Creatinine Ratio 9.4 L, Glucose 91, Calcium 8.8 Micro: Microbiology 11/17/22 23:55 Urine, Clean Catch Urine Culture - Final Culture exhibits no growth. Physical Exam Const alert, oriented x3 and no apparent distress General Appearance: cooperative Resp clear to auscultation bilaterally Auscultation: diminished lung sounds Cardio regular rate and regular rhythm GI normal to inspection, nondistended, normoactive bowel sounds, soft to palpation and non-tender Extremity Negative for no calf tenderness General Extremity: Negative for edema Skin Rashes: no rashes Wound Narrative: No change in the rash in the shae-rectal area. Monilial intertrigo. Assessment & Plan Assessment/Plan (1) Physical debility: (2) Septic arthritis of hip: QUALIFIERS: Septic arthritis organism: due to unspecified organism Laterality: right Qualified Code(s): M00.9 - Pyogenic arthritis, unspecified PLAN: Cultures are negative. Whipple's PCR negative. (3) C. difficile colitis: (4) Anemia: QUALIFIERS: Anemia type: unspecified type Qualified Code(s): D64.9 - Anemia, unspecified PLAN: He has a history of iron deficiency anemia. (5) Elevated anti-tissue transglutaminase (tTG) IgA level: PLAN: He has seen Dr. Vizcaino and he feels the increase in the IgA is due to infection/inflammation. 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 (7) Vertebral osteomyelitis, acute: PLAN: Treated with 6 weeks of IV antibiotics. (8) Polyclonal gammopathy: (9) Chronic lower back pain: QUALIFIERS: Back pain laterality: bilateral Sciatica presence: without sciatica Qualified Code(s): M54.50 - Low back pain, unspecified; G89.29 - Other chronic pain (10) Aortic valve regurgitation: QUALIFIERS: Cardiac valve disease etiology: nonrheumatic Qualified Code(s): I35.1 - Nonrheumatic aortic (valve) insufficiency PLAN: This is severe and he is following with Dr. Christensen. The plan is to have an AV replacement when he is cleared of all infection. This will be done at [facility]. He will also need to have th PFO closed. (11) PFO (patent foramen ovale): PLAN: On anticoagulation. (12) Hypernatremia: (13) DVT of lower limb, acute: QUALIFIERS: Affected thrombotic vein of extremity: unspecified lower extremity distal vein Laterality: right Qualified Code(s): I82.4Z1 - Acute embolism and thrombosis of unspecified deep veins of right distal lower extremity PLAN: This occurred after a a stent to the RLE. 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 Because he had a hemorrhagic transformation of CVA he could not be placed on anticoagulation initially and a temporary IVC filter was placed. Repeat venous US on 09/16/22 showed no evidence of DVT. (14) Monilial intertrigo: PLAN: Plan 1. Continue therapy 2. I discussed the Rocephin dosing with Dr. Riojas since the patient missed a few days and he said to discontinue Rocephin at the same time the vancomycin was discontinued. No need to extend a few days. 3. Continue with Diflucan 150 mg p.o. weekly x4. Patient does not need to wear a depends so will discontinue and have him wear regular underwear......... this may help keep him drier tender naphthalene. Continue Calmoseptine liberally All lab from today was personally reviewed. The white blood cell count is normal at 8.5. Hemoglobin is 7.3 today, down from 7.7 on 11/21/2022. Platelets are within normal limits. Sodium is down to 145 and the potassium is 3.9. The BUN is down to 13 and the creatinine is now 1.38 with a GFR of 56 which is near his baseline. GFR was 62 at discharge from rehab the first time he was here. Calcium is within normal limits. Charges/Coding Visit Charges Inpatient E&M: 22755 Subs Hosp L2
[2022-11-25 15:54] VITALS: BMI 36.7
[2022-11-25 19:31] VITALS: BP 132/62; PULSE 89; RESP 15; TEMP 36.9; O2SAT 92
[2022-11-25 20:20] VITALS: BMI 36.7
[2022-11-25] MEDS: Polyethylene Glycol 3350 17 GM PACKET PO (21:15)
[2022-11-25] MEDS: traZODone 100 MG Tablet PO (21:17)
[2022-11-25] MEDS: Doxazosin 1 MG Tablet 2 MG PO (21:17)
[2022-11-25] MEDS: 0.9 % NaCl (Sterile) Posiflush 10 mL IV (21:18)
[2022-11-26] MEDS: Acetaminophen 500 MG Tablet 1000 MG PO ×3 (05:50→21:28)
[2022-11-26] MEDS: Vancomycin 125 MG/5 ML Susp PO.SYRINGE PO ×4 (05:50→23:02)
[2022-11-26] MEDS: Buprenorphine HCl 2 MG TAB.SUBL SL ×3 (05:50→21:28)
[2022-11-26] MEDS: Baclofen 10 MG Tablet 5 MG PO ×3 (05:51→21:28)
[2022-11-26] MEDS: Menthol/Lanolin/Calamine/Znox 113 GM Tube 1 APPLIC TOPICAL ×3 (05:52→21:30)
[2022-11-26] MEDS: Potassium Chloride Oral Tablet 20 MEQ PO (08:13)
[2022-11-26] MEDS: Gabapentin 100 MG Capsule 200 MG PO ×3 (08:13→17:02)
[2022-11-26] MEDS: Losartan Potassium 100 MG Tablet PO (08:14)
[2022-11-26] MEDS: Fenofibrate 48 MG Tablet PO (08:14)
[2022-11-26] MEDS: Venlafaxine XR 150 MG Capsule PO (08:15)
[2022-11-26] MEDS: APIXABAN 5 MG TABLET PO ×2 (08:15→21:28)
[2022-11-26] MEDS: amLODIPine 10 MG Tablet PO (08:15)
[2022-11-26] MEDS: Pantoprazole Sodium 40 MG Tablet PO ×2 (08:15→21:28)
[2022-11-26] MEDS: Clopidogrel Bisulfate 75 MG Tablet PO (08:15)
[2022-11-26] MEDS: Senna/Docusate Sodium 1 Tablet 2 TABLET PO ×2 (08:22→21:29)
[2022-11-26 08:28] VITALS: BP 132/55; PULSE 85; RESP 16; TEMP 36.6; O2SAT 91
[2022-11-26] MEDS: oxyCODONE 5 MG Tablet 10 MG PO ×2 (08:33→17:39)
[2022-11-26] MEDS: 0.9 % NaCl (Sterile) Posiflush 10 mL IV ×2 (10:15→23:02)
[2022-11-26] MEDS: Ferrous Sulfate 325 MG Tablet PO (11:56)
[2022-11-26] MEDS: Ascorbic Acid 500 MG Tablet 1000 MG PO (11:56)
[2022-11-26 13:04] VITALS: BMI 36.7
[2022-11-26] MEDS: Doxazosin 1 MG Tablet 2 MG PO (21:28)
[2022-11-26] MEDS: traZODone 100 MG Tablet PO (21:29)
[2022-11-26] MEDS: Polyethylene Glycol 3350 17 GM PACKET PO (21:31)
[2022-11-26 22:00] VITALS: BP 132/48; PULSE 77; RESP 17; TEMP 36.1; O2SAT 94
[2022-11-27 01:32] VITALS: BMI 36.7
[2022-11-27] MEDS: oxyCODONE 5 MG Tablet 10 MG PO ×4 (02:11→23:02)
[2022-11-27 06:00] VITALS: BMI 36.3
[2022-11-27] MEDS: Acetaminophen 500 MG Tablet 1000 MG PO ×3 (06:47→21:26)
[2022-11-27] MEDS: Buprenorphine HCl 2 MG TAB.SUBL SL ×3 (06:47→21:31)
[2022-11-27] MEDS: Baclofen 10 MG Tablet 5 MG PO ×3 (06:48→21:22)
[2022-11-27] MEDS: Vancomycin 125 MG/5 ML Susp PO.SYRINGE PO ×4 (06:51→23:02)
[2022-11-27] MEDS: Menthol/Lanolin/Calamine/Znox 113 GM Tube 1 APPLIC TOPICAL ×3 (06:53→21:25)
[2022-11-27 07:40] VITALS: BP 138/62; PULSE 95; RESP 16; TEMP 36.9; O2SAT 96
[2022-11-27] MEDS: Gabapentin 100 MG Capsule 200 MG PO ×3 (08:06→16:38)
[2022-11-27] MEDS: Potassium Chloride Oral Tablet 20 MEQ PO (08:06)
[2022-11-27] MEDS: Fenofibrate 48 MG Tablet PO (08:06)
[2022-11-27] MEDS: 0.9 % NaCl (Sterile) Posiflush 10 mL IV ×2 (08:20→21:26)
[2022-11-27] MEDS: Pantoprazole Sodium 40 MG Tablet PO ×2 (10:01→21:26)
[2022-11-27] MEDS: Venlafaxine XR 150 MG Capsule PO (10:01)
[2022-11-27] MEDS: APIXABAN 5 MG TABLET PO ×2 (10:01→21:23)
[2022-11-27] MEDS: Clopidogrel Bisulfate 75 MG Tablet PO (10:01)
[2022-11-27] MEDS: Losartan Potassium 100 MG Tablet PO (10:01)
[2022-11-27] MEDS: amLODIPine 10 MG Tablet PO (10:01)
[2022-11-27] MEDS: Ascorbic Acid 500 MG Tablet 1000 MG PO (12:11)
[2022-11-27] MEDS: Ferrous Sulfate 325 MG Tablet PO (12:11)
[2022-11-27 12:21] VITALS: BMI 36.3
--- NOTE | 2022-11-27 12:42 | PCM.PROGNOTE ---
Subjective Subjective Afebrile VSS Maintaining appropriate oxygen saturation on RA Oral intake is good Discussed with nursing -he has a pink/mostly macular rash on his right flank which is pruritic. We had this problem the last time he was in rehab and it was an allergic dermatitis most likely due to the detergent the hospital uses for the sheets......he had no rashes after DC. The rash is limited to this one area......No hives, no SOB or trouble swallowing. Reviewed the PT/OT/ST notes Medication list reviewed. Al denies lightheadedness, vertigo, CP, SOB at rest, SOB with exertion, cough, nausea, vomiting, abd pain, diarrhea, constipation, dysuria, calf pain and ankle swelling. He has no complaints today. Objective Data Objective Data Vital Signs: Vital Signs Temp Pulse Resp BP Pulse Ox O2 Del Method O2 Flow Rate 98.4 F 95 16 138/62 H 96 Room Air 2 11/27/22 07:40 11/27/22 07:40 11/27/22 07:40 11/27/22 07:40 11/27/22 07:40 11/27/22 07:40 11/23/22 21:00 Oxygen Flow Rate (L/min) 2 Oxygen Delivery Method Room Air Weight: 291 lb 14.272 oz Body Mass Index (BMI) 36.3 Intake & Output: Intake and Output for Last 24 Hours 11/25/22 11/26/22 11/27/22 23:59 23:59 23:59 Intake Total 1707.75 / 1707.75 1250 / 1250 1868 / 1868 Output Total 1999 / 1999 2750 / 2750 1650 / 1650 Balance -292.25 / -292.25 -1500 / -1500 218 / 218 Lab / Micro Data 11/25/22 05:08 11/25/22 05:08 Micro: Microbiology 11/17/22 23:55 Urine, Clean Catch Urine Culture - Final Culture exhibits no growth. Physical Exam Const alert and no apparent distress General Appearance: cooperative Resp normal respiratory effort, no use of accessory muscles and clear to auscultation bilaterally Resp Narrative: No conversational dyspnea Effort and Inspection: Negative for tachypneic or labored Auscultation: diminished lung sounds Cardio regular rate, regular rhythm and no gallops GI normal to inspection, nondistended, normoactive bowel sounds, non-tender and non-distended GI Narrative: no guarding with palpation Extremity Negative for no calf tenderness General Extremity: Negative for edema Skin General Skin Exam: no breakdown Rashes: no rashes Psych affect normal Assessment & Plan Assessment/Plan (1) Physical debility: (2) Septic arthritis of hip: QUALIFIERS: Septic arthritis organism: due to unspecified organism Laterality: right Qualified Code(s): M00.9 - Pyogenic arthritis, unspecified (3) C. difficile colitis: (4) Anemia: QUALIFIERS: Anemia type: unspecified type Qualified Code(s): D64.9 - Anemia, unspecified (5) Elevated anti-tissue transglutaminase (tTG) IgA level: (6) Aortic valve endocarditis: (7) Vertebral osteomyelitis, acute: (8) Polyclonal gammopathy: (9) Chronic lower back pain: QUALIFIERS: Back pain laterality: bilateral Sciatica presence: without sciatica Qualified Code(s): M54.50 - Low back pain, unspecified; G89.29 - Other chronic pain (10) Aortic valve regurgitation: QUALIFIERS: Cardiac valve disease etiology: nonrheumatic Qualified Code(s): I35.1 - Nonrheumatic aortic (valve) insufficiency (11) PFO (patent foramen ovale): (12) Hypernatremia: (13) DVT of lower limb, acute: QUALIFIERS: Affected thrombotic vein of extremity: unspecified lower extremity distal vein Laterality: right Qualified Code(s): I82.4Z1 - Acute embolism and thrombosis of unspecified deep veins of right distal lower extremity (14) Monilial intertrigo: PLAN: Plan 1. Continue therapy 2. Start hydrocortisone cream 3 times daily for pruritus Charges/Coding Visit Charges Inpatient E&M: 66181 Subs Hosp L2
[2022-11-27] MEDS: Hydrocortisone 2.5% Crm 1 APPLIC TOPICAL ×2 (14:14→21:19)
[2022-11-27 19:42] VITALS: BP 132/51; PULSE 84; RESP 18; TEMP 36.8; O2SAT 96
[2022-11-27] MEDS: Polyethylene Glycol 3350 17 GM PACKET PO (21:21)
[2022-11-27] MEDS: Senna/Docusate Sodium 1 Tablet 2 TABLET PO (21:21)
[2022-11-27] MEDS: traZODone 100 MG Tablet PO (21:25)
[2022-11-27] MEDS: Doxazosin 1 MG Tablet 2 MG PO (21:25)
--- NOTE | 2022-11-27 21:31 | CPS ---
Pt stated he does not want to wear bipap
[2022-11-27 22:00] VITALS: PULSE 83; RESP 16; O2SAT 96
[2022-11-27 22:22] VITALS: O2SAT 96
[2022-11-27 23:26] VITALS: BMI 36.3
[2022-11-28] MEDS: Acetaminophen 500 MG Tablet 1000 MG PO ×3 (06:34→21:29)
[2022-11-28] MEDS: Hydrocortisone 2.5% Crm 1 APPLIC TOPICAL ×3 (06:35→21:31)
[2022-11-28] MEDS: Baclofen 10 MG Tablet 5 MG PO ×3 (06:35→21:30)
[2022-11-28] MEDS: Vancomycin 125 MG/5 ML Susp PO.SYRINGE PO ×4 (06:38→23:10)
[2022-11-28] MEDS: Buprenorphine HCl 2 MG TAB.SUBL SL ×3 (06:38→21:30)
[2022-11-28] MEDS: Menthol/Lanolin/Calamine/Znox 113 GM Tube 1 APPLIC TOPICAL ×3 (06:40→21:31)
[2022-11-28 06:58] VITALS: O2SAT 97
[2022-11-28] MEDS: oxyCODONE 5 MG Tablet 10 MG PO ×2 (07:27→19:09)
--- NOTE | 2022-11-28 07:47 | CPS ---
Patient wearing 2L NC H.S. due to refusing BIPAP use
[2022-11-28 07:55] VITALS: BP 132/52; PULSE 77; RESP 16; TEMP 36.3; O2SAT 97
[2022-11-28] MEDS: Senna/Docusate Sodium 1 Tablet 2 TABLET PO (08:20)
[2022-11-28] MEDS: Potassium Chloride Oral Tablet 20 MEQ PO (08:21)
[2022-11-28] MEDS: APIXABAN 5 MG TABLET PO ×2 (08:21→21:30)
[2022-11-28] MEDS: Venlafaxine XR 150 MG Capsule PO (08:21)
[2022-11-28] MEDS: Clopidogrel Bisulfate 75 MG Tablet PO (08:21)
[2022-11-28] MEDS: amLODIPine 10 MG Tablet PO (08:21)
[2022-11-28] MEDS: Losartan Potassium 100 MG Tablet PO (08:21)
[2022-11-28] MEDS: Fenofibrate 48 MG Tablet PO (08:21)
[2022-11-28] MEDS: Pantoprazole Sodium 40 MG Tablet PO ×2 (08:21→21:30)
[2022-11-28] MEDS: 0.9 % NaCl (Sterile) Posiflush 10 mL IV (08:25)
[2022-11-28] MEDS: Gabapentin 100 MG Capsule 200 MG PO ×3 (08:31→17:37)
[2022-11-28 09:59] VITALS: BMI 36.3
--- NOTE | 2022-11-28 10:57 | CPS ---
Bipap order D/C'd due to patient refusal. Dr. Boni langston.
[2022-11-28] MEDS: Ascorbic Acid 500 MG Tablet 1000 MG PO (12:14)
[2022-11-28] MEDS: Ferrous Sulfate 325 MG Tablet PO (12:14)
[2022-11-28] MEDS: Alteplase 2 MG/2 ML Vial IV (18:34)
[2022-11-28 19:03] VITALS: BP 129/46; PULSE 76; RESP 18; TEMP 36.4; O2SAT 95
[2022-11-28 21:00] VITALS: PULSE 76; RESP 18; O2SAT 95; BMI 36.3
[2022-11-28] MEDS: traZODone 100 MG Tablet PO (21:29)
[2022-11-28] MEDS: Doxazosin 1 MG Tablet 2 MG PO (21:29)
[2022-11-28] MEDS: Polyethylene Glycol 3350 17 GM PACKET PO (21:30)
[2022-11-29] MEDS: Buprenorphine HCl 2 MG TAB.SUBL SL ×3 (05:47→21:26)
[2022-11-29] MEDS: Baclofen 10 MG Tablet 5 MG PO ×3 (05:47→21:26)
[2022-11-29] MEDS: Acetaminophen 500 MG Tablet 1000 MG PO ×3 (05:47→19:42)
[2022-11-29] MEDS: Hydrocortisone 2.5% Crm 1 APPLIC TOPICAL ×3 (05:48→21:27)
[2022-11-29] MEDS: Vancomycin 125 MG/5 ML Susp PO.SYRINGE PO ×4 (05:50→22:41)
[2022-11-29 07:22] VITALS: O2SAT 92
[2022-11-29 07:52] VITALS: BP 160/52; PULSE 80; RESP 18; TEMP 36.6; O2SAT 94
[2022-11-29] MEDS: Gabapentin 100 MG Capsule 200 MG PO ×3 (08:03→17:09)
[2022-11-29] MEDS: Fenofibrate 48 MG Tablet PO (08:04)
[2022-11-29] MEDS: Pantoprazole Sodium 40 MG Tablet PO ×2 (08:04→21:25)
[2022-11-29] MEDS: Senna/Docusate Sodium 1 Tablet 2 TABLET PO (08:04)
[2022-11-29] MEDS: Losartan Potassium 100 MG Tablet PO (08:04)
[2022-11-29] MEDS: APIXABAN 5 MG TABLET PO ×2 (08:04→21:26)
[2022-11-29] MEDS: Potassium Chloride Oral Tablet 20 MEQ PO (08:04)
[2022-11-29] MEDS: Clopidogrel Bisulfate 75 MG Tablet PO (08:04)
[2022-11-29] MEDS: amLODIPine 10 MG Tablet PO (08:04)
[2022-11-29] MEDS: Venlafaxine XR 150 MG Capsule PO (08:04)
[2022-11-29] MEDS: oxyCODONE 5 MG Tablet 10 MG PO ×2 (08:05→19:43)
[2022-11-29 08:44] VITALS: BMI 36.3
[2022-11-29] MEDS: 0.9 % NaCl (Sterile) Posiflush 10 mL IV (09:42)
[2022-11-29] MEDS: Ferrous Sulfate 325 MG Tablet PO (12:29)
[2022-11-29] MEDS: Ascorbic Acid 500 MG Tablet 1000 MG PO (12:29)
[2022-11-29] MEDS: Menthol/Lanolin/Calamine/Znox 113 GM Tube 1 APPLIC TOPICAL ×2 (13:39→21:27)
[2022-11-29 19:29] VITALS: BP 147/58; PULSE 83; RESP 16; TEMP 36.8; O2SAT 97
[2022-11-29 21:15] VITALS: PULSE 83; RESP 16; O2SAT 97; BMI 36.3
[2022-11-29] MEDS: Doxazosin 1 MG Tablet 2 MG PO (21:25)
[2022-11-29] MEDS: traZODone 100 MG Tablet PO (21:25)
[2022-11-29] MEDS: Polyethylene Glycol 3350 17 GM PACKET PO (21:29)
[2022-11-30] MEDS: Acetaminophen 500 MG Tablet 1000 MG PO ×3 (06:29→21:17)
[2022-11-30] MEDS: Baclofen 10 MG Tablet 5 MG PO ×3 (06:30→21:17)
[2022-11-30] MEDS: Buprenorphine HCl 2 MG TAB.SUBL SL ×3 (06:30→21:16)
[2022-11-30] MEDS: Hydrocortisone 2.5% Crm 1 APPLIC TOPICAL (06:31)
[2022-11-30] MEDS: Vancomycin 125 MG/5 ML Susp PO.SYRINGE PO ×4 (06:31→22:59)
[2022-11-30 07:44] VITALS: BP 153/51; PULSE 72; RESP 18; TEMP 36.6; O2SAT 90
[2022-11-30] MEDS: Potassium Chloride Oral Tablet 20 MEQ PO (09:10)
[2022-11-30] MEDS: oxyCODONE 5 MG Tablet 10 MG PO ×2 (09:10→19:47)
[2022-11-30] MEDS: Gabapentin 100 MG Capsule 200 MG PO ×3 (09:10→17:30)
[2022-11-30] MEDS: Clopidogrel Bisulfate 75 MG Tablet PO (09:11)
[2022-11-30] MEDS: Pantoprazole Sodium 40 MG Tablet PO ×2 (09:12→21:17)
[2022-11-30] MEDS: Fenofibrate 48 MG Tablet PO (09:12)
[2022-11-30] MEDS: Losartan Potassium 100 MG Tablet PO (09:12)
[2022-11-30] MEDS: Venlafaxine XR 150 MG Capsule PO (09:13)
[2022-11-30] MEDS: amLODIPine 10 MG Tablet PO (09:13)
[2022-11-30] MEDS: APIXABAN 5 MG TABLET PO ×2 (09:13→21:17)
[2022-11-30] MEDS: 0.9 % NaCl (Sterile) Posiflush 10 mL IV ×2 (09:58→21:24)
[2022-11-30] MEDS: Ferrous Sulfate 325 MG Tablet PO (11:39)
[2022-11-30] MEDS: Ascorbic Acid 500 MG Tablet 1000 MG PO (11:39)
--- NOTE | 2022-11-30 12:47 | CASEMGMT ---
Social Work IDT met with patient and for Team meeting. Discussed patient's progress in PT/OT/ST/SN. Educated to [facility] [employer] insurance with [employer] 12/01 and continued stay is not guaranteed with each review. Pt has one IV ATB through 12/07 and another through 12/13. Anticipating pt remain until end of IVs, with DC 12/14. SW will continue to follow and set DC with needs. Samaria Ellington, [employer]
--- NOTE | 2022-11-30 14:14 | PCM.PROGNOTE ---
Subjective Subjective L was seen on team rounds today. His Lise was present in the room for rounds. Afebrile VSS-the last 3 blood pressures have shown an elevated systolic blood pressure ranging from 1 47-1 60. Maintaining appropriate oxygen saturation on RA Oral intake is good weight is not accurate.......on 11/10/2022 he weighed 290.3 pounds and the weight on 11/11/2022 was 321 pounds? The weight on 11/17/2022 was 304.2 pounds and on 11/20/2022 it was 295.6 pounds and today it is 291.9? Discussed with nursing - no problems that need addressed Reviewed the PT/OT/ST notes Medication list reviewed. Al has no complaints today. Pruritus resolved with Hydrocortisone cream. Denies chest pain, shortness of breath, cough, palpitations, lightheadedness, nausea/vomiting/abdominal pain, dysuria and calf pain. Objective Data Objective Data Vital Signs: Vital Signs Temp Pulse Resp BP Pulse Ox O2 Del Method O2 Flow Rate 97.9 F 72 18 153/51 H 90 Room Air 2 11/30/22 07:44 11/30/22 07:44 11/30/22 07:44 11/30/22 07:44 11/30/22 07:44 11/30/22 07:44 11/28/22 06:58 Oxygen Flow Rate (L/min) 2 Oxygen Delivery Method Room Air Weight: 291 lb 14.272 oz Body Mass Index (BMI) 36.3 Intake & Output: Intake and Output for Last 24 Hours 11/28/22 11/29/22 11/30/22 23:59 23:59 23:59 Intake Total 1440 / 1440 1259.75 / 1259.75 940 / 940 Output Total 1450 / 1450 550 / 550 500 / 500 Balance -10 709.75 / 709.75 440 / 440 Lab / Micro Data 11/25/22 05:08 11/25/22 05:08 Micro: Microbiology 11/17/22 23:55 Urine, Clean Catch Urine Culture - Final Culture exhibits no growth. Physical Exam Const alert and no apparent distress General Appearance: cooperative Resp normal respiratory effort, no use of accessory muscles and clear to auscultation bilaterally Resp Narrative: No conversational dyspnea. No coughing with deep breaths. Effort and Inspection: Negative for tachypneic or labored Auscultation: diminished lung sounds Cardio regular rate, regular rhythm and no gallops Cardio Narrative: No ectopy. GI normal to inspection, nondistended, normoactive bowel sounds, non-tender and non-distended GI Narrative: no guarding with palpation Extremity Negative for no calf tenderness General Extremity: Negative for edema Skin General Skin Exam: no breakdown Rashes: no rashes and rashes noted Wound Narrative: The rash that was present on the R flank last week has resolved. Psych affect normal Assessment & Plan Assessment/Plan (1) Physical debility: (2) Septic arthritis of hip: QUALIFIERS: Septic arthritis organism: due to unspecified organism Laterality: right Qualified Code(s): M00.9 - Pyogenic arthritis, unspecified (3) Anemia: QUALIFIERS: Anemia type: unspecified type Qualified Code(s): D64.9 - Anemia, unspecified (4) Chronic lower back pain: QUALIFIERS: Back pain laterality: bilateral Sciatica presence: without sciatica Qualified Code(s): M54.50 - Low back pain, unspecified; G89.29 - Other chronic pain (5) Aortic valve regurgitation: QUALIFIERS: Cardiac valve disease etiology: nonrheumatic Qualified Code(s): I35.1 - Nonrheumatic aortic (valve) insufficiency (6) PFO (patent foramen ovale): (7) Monilial intertrigo: PLAN: Less pain this week. Less redness, still with some inflammatory papules. PLAN: Plan 1. Continue therapy 2. Recheck a BMP and H&H on Wednesday 3. Rocephin will conclude on 12/13 and plan DC home 4. Will not wear CPAP - using O2 at night in lieu of CPAP 5. Pain is better controlled with Buprenorphine SL.........will discuss this with Dr. Russo and determine what Dr. Russo would like to use at [place]. Charges/Coding Visit Charges Inpatient E&M: 99397 Subs Hosp L2
[2022-11-30 14:58] VITALS: BMI 36.3
[2022-11-30 19:04] VITALS: BP 126/52; PULSE 76; RESP 16; TEMP 36.9; O2SAT 94
[2022-11-30] MEDS: Doxazosin 1 MG Tablet 2 MG PO (21:16)
[2022-11-30] MEDS: Polyethylene Glycol 3350 17 GM PACKET PO (21:17)
[2022-11-30] MEDS: traZODone 100 MG Tablet PO (21:17)
[2022-12-01] MEDS: Hydrocortisone 2.5% Crm 1 APPLIC TOPICAL ×2 (05:44→21:32)
[2022-12-01] MEDS: Menthol/Lanolin/Calamine/Znox 113 GM Tube 1 APPLIC TOPICAL ×2 (05:45→21:31)
[2022-12-01] MEDS: Baclofen 10 MG Tablet 5 MG PO ×3 (05:46→21:05)
[2022-12-01] MEDS: Acetaminophen 500 MG Tablet 1000 MG PO ×3 (05:47→21:07)
[2022-12-01] MEDS: Vancomycin 125 MG/5 ML Susp PO.SYRINGE PO ×4 (05:49→23:41)
[2022-12-01] MEDS: Buprenorphine HCl 2 MG TAB.SUBL SL ×3 (05:49→21:23)
[2022-12-01] MEDS: Potassium Chloride Oral Tablet 20 MEQ PO (07:48)
[2022-12-01] MEDS: Fenofibrate 48 MG Tablet PO (07:49)
[2022-12-01] MEDS: Gabapentin 100 MG Capsule 200 MG PO ×3 (07:53→17:06)
[2022-12-01] MEDS: oxyCODONE 5 MG Tablet 10 MG PO ×3 (07:53→23:42)
[2022-12-01 08:02] VITALS: BP 131/77; PULSE 73; RESP 16; TEMP 36.6; O2SAT 91
[2022-12-01] MEDS: APIXABAN 5 MG TABLET PO ×2 (10:23→21:11)
[2022-12-01] MEDS: Losartan Potassium 100 MG Tablet PO (10:23)
[2022-12-01] MEDS: Venlafaxine XR 150 MG Capsule PO (10:23)
[2022-12-01] MEDS: Pantoprazole Sodium 40 MG Tablet PO ×2 (10:24→21:10)
[2022-12-01] MEDS: amLODIPine 10 MG Tablet PO (10:24)
[2022-12-01] MEDS: Clopidogrel Bisulfate 75 MG Tablet PO (10:25)
[2022-12-01] MEDS: Ferrous Sulfate 325 MG Tablet PO (11:14)
[2022-12-01] MEDS: Ascorbic Acid 500 MG Tablet 1000 MG PO (11:15)
[2022-12-01 12:14] VITALS: BMI 36.3
[2022-12-01] MEDS: FLUCONAZOLE 150 MG TABLET PO (15:44)
[2022-12-01 15:48] VITALS: BP 122/48; PULSE 82; RESP 18; TEMP 37.1
--- NOTE | 2022-12-01 16:43 | PN_ITS ---
Subjective Subjective Afebrile VSS Maintaining appropriate oxygen saturation on RA Oral intake is good Discussed with nursing - no problems that need addressed other than he not only will not wear CPAP, he takes the O2 off as well. Reviewed the PT/OT/ST notes Medication list reviewed. Al denies lightheadedness, vertigo, CP, SOB at rest, SOB with exertion, cough, nausea, vomiting, abd pain, diarrhea, constipation, dysuria, calf pain and ankle swelling. Objective Data Objective Data Vital Signs: Vital Signs Temp Pulse Resp BP Pulse Ox O2 Del Method O2 Flow Rate 98.7 F 82 18 122/48 H 91 Room Air 2 12/01/22 15:48 12/01/22 15:48 12/01/22 15:48 12/01/22 15:48 12/01/22 08:02 12/01/22 15:48 11/28/22 06:58 FiO2 92 12/01/22 15:48 Oxygen Flow Rate (L/min) 2 Oxygen Delivery Method Room Air Weight: 291 lb 14.272 oz Body Mass Index (BMI) 36.3 Intake & Output: Intake and Output for Last 24 Hours 11/29/22 11/30/22 12/01/22 23:59 23:59 23:59 Intake Total 1259.75 / 1259.75 2180 / 2180 1118 / 1118 Output Total 550 / 550 1150 / 1150 700 / 700 Balance 709.75 / 709.75 1030 / 1030 418 / 418 Lab / Micro Data 11/25/22 05:08 11/25/22 05:08 Micro: Microbiology 11/17/22 23:55 Urine, Clean Catch Urine Culture - Final Culture exhibits no growth. Physical Exam Const alert and no apparent distress General Appearance: cooperative HEENT moist oral mucous membranes Resp normal respiratory effort, no use of accessory muscles and clear to auscultation bilaterally Effort and Inspection: Negative for tachypneic or labored Cardio regular rate, regular rhythm and no gallops GI normal to inspection, nondistended, normoactive bowel sounds, non-tender and non-distended GI Narrative: no guarding with palpation Extremity Negative for no calf tenderness General Extremity: Negative for edema Skin General Skin Exam: no breakdown Rashes: rashes noted the rash in the flanks is a faint pink now and he denies pruritus. I suspect it is a contact dermatitis due to the detergent used to wash the bedding Narrative: His is now taking sheets home to wash with their detergent. macule Psych affect normal Assessment & Plan Assessment/Plan (1) Physical debility: (2) Septic arthritis of hip: QUALIFIERS: Septic arthritis organism: due to unspecified organism Laterality: right Qualified Code(s): M00.9 - Pyogenic arthritis, unspecified (3) Anemia: QUALIFIERS: Anemia type: unspecified type Qualified Code(s): D64.9 - Anemia, unspecified (4) Chronic lower back pain: QUALIFIERS: Back pain laterality: bilateral Sciatica presence: w ithout sciatica Qualified Code(s): M54.50 - Low back pain, unspecified; G89.29 - Other chronic pain (5) Aortic valve regurgitation: QUALIFIERS: Cardiac valve disease etiology: nonrheumatic Qualifi ed Code(s): I35.1 - Nonrheumatic aortic (valve) insufficiency (6) PFO (patent foramen ovale): (7) Monilial intertrigo: PLAN: Less pain this week. Less redness, still with some inflammatory papules. PLAN: Plan 1. Continue therapy 2. Recheck a BMP and H&H on Wednesday 3. Pain is better controlled with Buprenorphine SL.........will discuss this with Dr. Russo and determine what Dr. Russo would like to use at [place]. Charges/Coding Visit Charges Inpatient E&M: 37106 Subs Hosp L2
[2022-12-01] MEDS: Polyethylene Glycol 3350 17 GM PACKET PO (21:05)
[2022-12-01] MEDS: Doxazosin 1 MG Tablet 2 MG PO (21:08)
[2022-12-01] MEDS: traZODone 100 MG Tablet PO ×2 (21:12)
[2022-12-01] MEDS: Senna/Docusate Sodium 1 Tablet 2 TABLET PO (21:14)
[2022-12-01] MEDS: Mag Hydrox/Al Hydrox/Simeth 30 ML UDC 15 ML PO (21:33)
[2022-12-01 22:00] VITALS: BP 140/59; PULSE 80; RESP 20; TEMP 37.1; O2SAT 88
[2022-12-01] MEDS: 0.9 % NaCl (Sterile) Posiflush 10 mL IV (22:00)
--- NOTE | 2022-12-02 03:03 | NURSING ---
Reviewed and agree with Eliz RAZA, documentation and assessment charting.
[2022-12-02 03:24] VITALS: BMI 36.3
[2022-12-02] MEDS: Baclofen 10 MG Tablet 5 MG PO ×3 (05:34→21:28)
[2022-12-02] MEDS: Acetaminophen 500 MG Tablet 1000 MG PO ×3 (05:34→21:29)
[2022-12-02] MEDS: Menthol/Lanolin/Calamine/Znox 113 GM Tube 1 APPLIC TOPICAL ×3 (05:36→21:31)
[2022-12-02] MEDS: Buprenorphine HCl 2 MG TAB.SUBL SL ×3 (05:39→21:30)
[2022-12-02] MEDS: Vancomycin 125 MG/5 ML Susp PO.SYRINGE PO ×4 (05:39→23:31)
[2022-12-02] MEDS: Hydrocortisone 2.5% Crm 1 APPLIC TOPICAL ×3 (05:39→21:30)
[2022-12-02 05:54] LABS: Hematocrit 25.5 % (40-54); Hemoglobin 7.3 g/dL (13.0-16.5); Mean Corp Hgb Conc 28.6 g/dL (32-36); Mean Corpuscular Hgb 24.7 pg (27.0-32.0); Mean Corpuscular Volume 86.1 fL (80-94); Mean Platelet Vol. 11.8 fl (6.2-12.0); Platelet Count 266 K/mm3 (150-450); RBC Distribution Width CV 18.9 % (11.6-14.6); RBC Distribution Width SD 59.9 fl (35.1-43.9); Red Blood Count 2.96 M/mm3 (4.6-6.2); White Blood Count 7.1 K/mm3 (4.4-11.0)
[2022-12-02] MEDS: oxyCODONE 5 MG Tablet 10 MG PO ×3 (06:22→18:18)
[2022-12-02 06:35] LABS: Anion Gap 3 (5-15); BUN 12 mg/dL (7-18); BUN/Creat Ratio 12.6 RATIO (10-20); Calcium,Total 8.9 mg/dL (8.5-10.1); Chloride 110 mmol/L (98-107); Creatinine, Serum 0.96 mg/dL (0.70-1.30); EST Glomerular Filtration Rate 86 mL/min (>60); Est Glom Filt Rate - Afr Amer 104 mL/min (>60); Estimated Creatinine Clearance 100.25 ml/min; Glucose 90 mg/dL (74-106); Sodium Level 144 mmol/L (136-145)
[2022-12-02 07:31] VITALS: BP 119/58; PULSE 73; RESP 16; TEMP 37; O2SAT 96
[2022-12-02] MEDS: Potassium Chloride Oral Tablet 20 MEQ PO (08:19)
[2022-12-02] MEDS: Gabapentin 100 MG Capsule 200 MG PO ×3 (08:19→17:00)
[2022-12-02] MEDS: Fenofibrate 48 MG Tablet PO (08:20)
[2022-12-02 09:00] VITALS: O2SAT 93
[2022-12-02] MEDS: APIXABAN 5 MG TABLET PO ×2 (10:32→21:30)
[2022-12-02] MEDS: Senna/Docusate Sodium 1 Tablet 2 TABLET PO (10:32)
[2022-12-02] MEDS: amLODIPine 10 MG Tablet PO (10:32)
[2022-12-02] MEDS: Venlafaxine XR 150 MG Capsule PO (10:32)
[2022-12-02] MEDS: Clopidogrel Bisulfate 75 MG Tablet PO (10:32)
[2022-12-02] MEDS: Losartan Potassium 100 MG Tablet PO (10:32)
[2022-12-02] MEDS: Pantoprazole Sodium 40 MG Tablet PO ×2 (10:32→21:29)
[2022-12-02] MEDS: 0.9 % NaCl (Sterile) Posiflush 10 mL IV ×2 (10:34→22:06)
[2022-12-02] MEDS: Ferrous Sulfate 325 MG Tablet PO (12:09)
[2022-12-02] MEDS: Ascorbic Acid 500 MG Tablet 1000 MG PO (12:09)
[2022-12-02 14:03] VITALS: BMI 36.3
--- NOTE | 2022-12-02 16:16 | CPS ---
Patient wears Oxygen H.S.
[2022-12-02 21:25] VITALS: BP 121/64; PULSE 72; RESP 18; TEMP 36.6; O2SAT 94; BMI 36.3
[2022-12-02] MEDS: Doxazosin 1 MG Tablet 2 MG PO (21:29)
[2022-12-02] MEDS: Polyethylene Glycol 3350 17 GM PACKET PO (21:30)
[2022-12-02] MEDS: traZODone 100 MG Tablet PO (21:59)
--- NOTE | 2022-12-03 01:51 | NURSING ---
rEVIEWED AND AGREE WITH Evangelina RAZA, DOCUMENTATION AND ASSESSMENT CHARTING.
[2022-12-03] MEDS: oxyCODONE 5 MG Tablet 10 MG PO (04:47)
[2022-12-03] MEDS: Baclofen 10 MG Tablet 5 MG PO ×3 (06:10→21:29)
[2022-12-03] MEDS: Acetaminophen 500 MG Tablet 1000 MG PO ×3 (06:10→21:31)
[2022-12-03] MEDS: Buprenorphine HCl 2 MG TAB.SUBL SL ×3 (06:10→21:31)
[2022-12-03] MEDS: Menthol/Lanolin/Calamine/Znox 113 GM Tube 1 APPLIC TOPICAL ×2 (06:14→21:33)
[2022-12-03] MEDS: Hydrocortisone 2.5% Crm 1 APPLIC TOPICAL ×3 (06:19→21:27)
[2022-12-03] MEDS: Vancomycin 125 MG/5 ML Susp PO.SYRINGE PO ×4 (06:21→23:21)
[2022-12-03 07:29] VITALS: BP 144/58; PULSE 85; RESP 17; TEMP 36.3; O2SAT 94
[2022-12-03 08:00] VITALS: O2SAT 96
[2022-12-03] MEDS: Pantoprazole Sodium 40 MG Tablet PO ×2 (08:24→21:47)
[2022-12-03] MEDS: Venlafaxine XR 150 MG Capsule PO (08:24)
[2022-12-03] MEDS: Fenofibrate 48 MG Tablet PO (08:24)
[2022-12-03] MEDS: amLODIPine 10 MG Tablet PO (08:24)
[2022-12-03] MEDS: Gabapentin 100 MG Capsule 200 MG PO ×3 (08:24→17:21)
[2022-12-03] MEDS: Clopidogrel Bisulfate 75 MG Tablet PO (08:24)
[2022-12-03] MEDS: Potassium Chloride Oral Tablet 20 MEQ PO (08:24)
[2022-12-03] MEDS: APIXABAN 5 MG TABLET PO ×2 (08:24→21:30)
[2022-12-03] MEDS: Losartan Potassium 100 MG Tablet PO (08:24)
[2022-12-03] MEDS: Miconazole Nitrate 43 GM Bottle 1 APPLIC TOPICAL ×2 (08:28→21:33)
[2022-12-03] MEDS: 0.9% Saline Lock 10 ML Syringe IV (10:14)
--- NOTE | 2022-12-03 11:03 | PCM.PROGNOTE ---
Subjective Subjective Afebrile VSS Maintaining appropriate oxygen saturation on RA Oral intake is [] Discussed with nursing - no problems that need addressed Reviewed the PT/OT/ST notes Medication list reviewed. taking Oxycodone in addition to Buprenorphine as needed. 1-3 times a day. All recent lab was personally reviewed. Hemoglobin is stable at 7.3 and the platelet and white blood cell counts are within normal limits. Sodium is 144 and the potassium is 4. The BUN is 12 and the creatinine is down to 0.96 which is just above his baseline when he left rehab the last time. He has excellent urine output. Calcium is normal. Antibiotics will conclude on 12/13 and we are planning on DC home on 12/14. He is doing very well in therapy. Al denies lightheadedness, chest pain, palpitations, shortness of breath, cough, dysuria, calf pain, diarrhea, painful swallowing and sore mouth. Objective Data Objective Data Vital Signs: Vital Signs Temp Pulse Resp BP Pulse Ox O2 Del Method O2 Flow Rate 97.4 F L 85 17 144/58 H 94 Room Air 2 12/03/22 07:29 12/03/22 07:29 12/03/22 07:29 12/03/22 07:29 12/03/22 07:29 12/03/22 07:29 11/28/22 06:58 FiO2 92 12/01/22 15:48 Oxygen Flow Rate (L/min) 2 Oxygen Delivery Method Room Air Weight: 291 lb 14.272 oz Body Mass Index (BMI) 36.3 Intake & Output: Intake and Output for Last 24 Hours 12/01/22 12/02/22 12/03/22 23:59 23:59 23:59 Intake Total 1728 / 2328 2629.75 / 2629.75 730 / 730 Output Total 700 / 1900 3100 / 3100 300 / 300 Balance 1028 / 428 -470.25 / -470.25 430 / 430 Lab / Micro Data 12/02/22 05:07 12/02/22 05:07 Micro: Microbiology 11/17/22 23:55 Urine, Clean Catch Urine Culture - Final Culture exhibits no growth. Physical Exam Const alert, oriented x3 and no apparent distress General Appearance: cooperative HEENT moist oral mucous membranes Resp normal respiratory effort and clear to auscultation bilaterally Resp Narrative: No conversational dyspnea. No coughing with deep breaths. Effort and Inspection: Negative for tachypneic or labored Auscultation: diminished lung sounds Cardio regular rate, regular rhythm, S1 normal heart sound, S2 normal heart sound, no rub and no gallops Cardio Narrative: No ectopy. GI normal to inspection, nondistended, normoactive bowel sounds, soft to palpation, non-tender and non-distended GI Narrative: no guarding with palpation Extremity Negative for no calf tenderness General Extremity: Negative for edema Skin Skin Narrative: No rashes, no skin breakdown. the rash in the flanks has resolved. Tells me that the pain in the shae-anal area from the monilial intertrigo is much better. Rashes: no rashes Wound Narrative: The rash that was present on the R flank last week has resolved. Neuro oriented x3 and CN's II-XII intact bilaterally Neuro Narrative: Speech is normal and fluent. Psych affect normal Psych Narrative: Appropriate, making good eye contact. Able to stay on topic and focus. No flight of ideas. Does not appear anxious or depressed. Conversant and relating well to staff. Assessment & Plan Assessment/Plan (1) Physical debility: (2) Septic arthritis of hip: QUALIFIERS: Septic arthritis organism: due to unspecified organism Laterality: right Qualified Code(s): M00.9 - Pyogenic arthritis, unspecified PLAN: Pathogen has never reg identified. (3) Anemia: QUALIFIERS: Anemia type: unspecified type Qualified Code(s): D64.9 - Anemia, unspecified (4) Chronic lower back pain: QUALIFIERS: Back pain laterality: bilateral Sciatica presence: without sciatica Qualified Code(s): M54.50 - Low back pain, unspecified; G89.29 - Other chronic pain (5) Aortic valve regurgitation: QUALIFIERS: Cardiac valve disease etiology: nonrheumatic Qualified Code(s): I35.1 - Nonrheumatic aortic (valve) insufficiency (6) PFO (patent foramen ovale): (7) Monilial intertrigo: PLAN: Less pain this week. Less redness, still with some inflammatory papules. PLAN: Plan 1. Continue therapy 2. I notified Dr. Russo's office that he is now on Buprenorphine SL and it is controlling the pain better. Still using from 1-3 Oxycodone 10 mg daily for breakthrough pain. Patch is not available thru hospital pharmacy. May benefit from a patch going forward. Would need to have the MME less than 30 daily prior to starting a patch. He is taking 3 tabs some days and that is 45 MME's. 3. Give iron IV tomorrow. Does not absorb oral iron. 4. Recheck a HH again next week. Charges/Coding Visit Charges Inpatient E&M: 63675 Subs Hosp L2
[2022-12-03] MEDS: Ascorbic Acid 500 MG Tablet 1000 MG PO (12:18)
[2022-12-03] MEDS: Ferrous Sulfate 325 MG Tablet PO (12:18)
[2022-12-03 15:22] VITALS: BMI 36.3
[2022-12-03 19:20] VITALS: BP 141/52; PULSE 77; RESP 16; TEMP 36.8; O2SAT 95
[2022-12-03] MEDS: Polyethylene Glycol 3350 17 GM PACKET PO (21:25)
[2022-12-03 21:30] VITALS: PULSE 77; RESP 16; O2SAT 95; BMI 36.3
[2022-12-03] MEDS: Doxazosin 1 MG Tablet 2 MG PO (21:30)
[2022-12-03] MEDS: traZODone 100 MG Tablet PO (21:31)
[2022-12-03] MEDS: Senna/Docusate Sodium 1 Tablet 2 TABLET PO (21:47)
[2022-12-04] MEDS: oxyCODONE 5 MG Tablet 10 MG PO ×2 (04:45→14:08)
[2022-12-04 06:00] VITALS: BMI 36.7
[2022-12-04] MEDS: Baclofen 10 MG Tablet 5 MG PO ×3 (06:20→21:39)
[2022-12-04] MEDS: Acetaminophen 500 MG Tablet 1000 MG PO ×3 (06:20→21:37)
[2022-12-04] MEDS: Hydrocortisone 2.5% Crm 1 APPLIC TOPICAL ×3 (06:21→21:41)
[2022-12-04] MEDS: Menthol/Lanolin/Calamine/Znox 113 GM Tube 1 APPLIC TOPICAL ×3 (06:21→21:43)
[2022-12-04] MEDS: Buprenorphine HCl 2 MG TAB.SUBL SL ×3 (06:21→21:37)
[2022-12-04] MEDS: Vancomycin 125 MG/5 ML Susp PO.SYRINGE PO ×4 (06:22→23:33)
[2022-12-04] MEDS: Potassium Chloride Oral Tablet 20 MEQ PO (08:08)
[2022-12-04] MEDS: Fenofibrate 48 MG Tablet PO (08:09)
[2022-12-04] MEDS: Clopidogrel Bisulfate 75 MG Tablet PO (08:10)
[2022-12-04] MEDS: Pantoprazole Sodium 40 MG Tablet PO ×2 (08:10→21:38)
[2022-12-04] MEDS: Venlafaxine XR 150 MG Capsule PO (08:10)
[2022-12-04] MEDS: APIXABAN 5 MG TABLET PO ×2 (08:11→21:38)
[2022-12-04] MEDS: Losartan Potassium 100 MG Tablet PO (08:11)
[2022-12-04] MEDS: Senna/Docusate Sodium 1 Tablet 2 TABLET PO ×2 (08:12→21:38)
[2022-12-04] MEDS: amLODIPine 10 MG Tablet PO (08:12)
[2022-12-04] MEDS: Miconazole Nitrate 43 GM Bottle 1 APPLIC TOPICAL ×2 (08:15→21:43)
[2022-12-04 08:35] VITALS: BP 122/50; PULSE 85; RESP 18; TEMP 36.5; O2SAT 94
[2022-12-04] MEDS: Gabapentin 100 MG Capsule 200 MG PO ×3 (09:01→17:18)
[2022-12-04] MEDS: 0.9 % NaCl (Sterile) Posiflush 10 mL IV (09:01)
[2022-12-04] MEDS: Ascorbic Acid 500 MG Tablet 1000 MG PO (11:04)
[2022-12-04] MEDS: Ferrous Sulfate 325 MG Tablet PO (11:04)
[2022-12-04] MEDS: Sodium Ferric Gluconat 250 MG in 0.9% Normal Saline 250 ML 135 MG IV (14:36)
--- NOTE | 2022-12-04 16:08 | CPS ---
Patient wears 2L H.S.
[2022-12-04 19:40] VITALS: BP 122/54; PULSE 83; RESP 14; TEMP 37.1; O2SAT 94
[2022-12-04] MEDS: Polyethylene Glycol 3350 17 GM PACKET PO (21:38)
[2022-12-04] MEDS: traZODone 100 MG Tablet PO (21:39)
[2022-12-04] MEDS: Doxazosin 1 MG Tablet 2 MG PO (21:40)
[2022-12-04 21:55] VITALS: BMI 36.7
[2022-12-05] MEDS: oxyCODONE 5 MG Tablet 10 MG PO ×4 (04:42→23:16)
[2022-12-05] MEDS: Acetaminophen 500 MG Tablet 1000 MG PO ×3 (06:30→21:44)
[2022-12-05] MEDS: Buprenorphine HCl 2 MG TAB.SUBL SL ×3 (06:30→21:45)
[2022-12-05] MEDS: Baclofen 10 MG Tablet 5 MG PO ×3 (06:30→21:44)
[2022-12-05] MEDS: Vancomycin 125 MG/5 ML Susp PO.SYRINGE PO ×4 (06:30→23:05)
[2022-12-05] MEDS: Menthol/Lanolin/Calamine/Znox 113 GM Tube 1 APPLIC TOPICAL ×2 (06:33→21:43)
[2022-12-05] MEDS: Fenofibrate 48 MG Tablet PO (08:02)
[2022-12-05] MEDS: Potassium Chloride Oral Tablet 20 MEQ PO (08:02)
[2022-12-05] MEDS: Gabapentin 100 MG Capsule 200 MG PO ×3 (08:02→16:42)
[2022-12-05] MEDS: Pantoprazole Sodium 40 MG Tablet PO ×2 (08:06→21:44)
[2022-12-05] MEDS: Senna/Docusate Sodium 1 Tablet 2 TABLET PO ×2 (08:06→21:44)
[2022-12-05] MEDS: Losartan Potassium 100 MG Tablet PO (08:07)
[2022-12-05] MEDS: APIXABAN 5 MG TABLET PO ×2 (08:07→21:44)
[2022-12-05] MEDS: Venlafaxine XR 150 MG Capsule PO (08:07)
[2022-12-05] MEDS: Clopidogrel Bisulfate 75 MG Tablet PO (08:07)
[2022-12-05] MEDS: amLODIPine 10 MG Tablet PO (08:07)
[2022-12-05] MEDS: Miconazole Nitrate 43 GM Bottle 1 APPLIC TOPICAL ×2 (08:08→21:44)
[2022-12-05 08:24] VITALS: BP 124/55; PULSE 76; RESP 16; TEMP 36.9; O2SAT 96
[2022-12-05 10:17] VITALS: BMI 36.7
[2022-12-05] MEDS: 0.9 % NaCl (Sterile) Posiflush 10 mL IV (10:18)
[2022-12-05] MEDS: Ferrous Sulfate 325 MG Tablet PO (11:53)
[2022-12-05] MEDS: Ascorbic Acid 500 MG Tablet 1000 MG PO (11:54)
--- NOTE | 2022-12-05 16:36 | CPS ---
Patient wears 2L H.S.
[2022-12-05 19:34] VITALS: BP 113/49; PULSE 74; RESP 16; TEMP 36.6; O2SAT 96
[2022-12-05] MEDS: traZODone 100 MG Tablet PO (21:44)
[2022-12-05] MEDS: Polyethylene Glycol 3350 17 GM PACKET PO (21:45)
[2022-12-05] MEDS: Doxazosin 1 MG Tablet 2 MG PO (21:45)
[2022-12-05] MEDS: Hydrocortisone 2.5% Crm 1 APPLIC TOPICAL (21:48)
[2022-12-05 21:51] VITALS: BMI 36.7
[2022-12-06] MEDS: Buprenorphine HCl 2 MG TAB.SUBL SL ×3 (05:47→22:17)
[2022-12-06] MEDS: Vancomycin 125 MG/5 ML Susp PO.SYRINGE PO ×4 (05:47→23:01)
[2022-12-06] MEDS: Acetaminophen 500 MG Tablet 1000 MG PO ×3 (05:47→22:16)
[2022-12-06] MEDS: Baclofen 10 MG Tablet 5 MG PO ×3 (05:47→22:16)
[2022-12-06] MEDS: Hydrocortisone 2.5% Crm 1 APPLIC TOPICAL ×2 (05:47→20:37)
[2022-12-06] MEDS: Menthol/Lanolin/Calamine/Znox 113 GM Tube 1 APPLIC TOPICAL ×2 (05:49→20:39)
[2022-12-06 07:10] VITALS: O2SAT 95
[2022-12-06] MEDS: APIXABAN 5 MG TABLET PO ×2 (07:57→20:33)
[2022-12-06] MEDS: amLODIPine 10 MG Tablet PO (07:57)
[2022-12-06] MEDS: Potassium Chloride Oral Tablet 20 MEQ PO (07:57)
[2022-12-06] MEDS: Pantoprazole Sodium 40 MG Tablet PO ×2 (07:57→20:36)
[2022-12-06] MEDS: Fenofibrate 48 MG Tablet PO (07:57)
[2022-12-06] MEDS: Gabapentin 100 MG Capsule 200 MG PO ×3 (07:57→16:50)
[2022-12-06] MEDS: Senna/Docusate Sodium 1 Tablet 2 TABLET PO ×2 (07:57→22:16)
[2022-12-06] MEDS: Losartan Potassium 100 MG Tablet PO (07:57)
[2022-12-06] MEDS: Clopidogrel Bisulfate 75 MG Tablet PO (07:58)
[2022-12-06 08:00] VITALS: BP 137/67; PULSE 90; RESP 19; TEMP 37; O2SAT 97
[2022-12-06] MEDS: Venlafaxine XR 150 MG Capsule PO (08:00)
[2022-12-06] MEDS: Miconazole Nitrate 43 GM Bottle 1 APPLIC TOPICAL ×2 (09:59→20:39)
[2022-12-06] MEDS: Ferrous Sulfate 325 MG Tablet PO (11:26)
[2022-12-06] MEDS: Ascorbic Acid 500 MG Tablet 1000 MG PO (11:28)
[2022-12-06] MEDS: 0.9 % NaCl (Sterile) Posiflush 10 mL IV (11:29)
[2022-12-06] MEDS: oxyCODONE 5 MG Tablet 10 MG PO ×2 (11:45→20:33)
[2022-12-06 12:23] VITALS: BMI 36.7
[2022-12-06 19:58] VITALS: BP 122/45; PULSE 78; RESP 16; TEMP 36.2; O2SAT 96
[2022-12-06] MEDS: Polyethylene Glycol 3350 17 GM PACKET PO (20:33)
[2022-12-06] MEDS: Doxazosin 1 MG Tablet 2 MG PO (20:36)
[2022-12-06 20:47] VITALS: BMI 36.7
[2022-12-06] MEDS: traZODone 100 MG Tablet PO (22:16)
[2022-12-07] MEDS: Hydrocortisone 2.5% Crm 1 APPLIC TOPICAL ×3 (05:26→21:27)
[2022-12-07] MEDS: Buprenorphine HCl 2 MG TAB.SUBL SL ×3 (05:27→21:27)
[2022-12-07] MEDS: Acetaminophen 500 MG Tablet 1000 MG PO ×3 (05:27→21:21)
[2022-12-07] MEDS: Baclofen 10 MG Tablet 5 MG PO ×3 (05:27→21:19)
[2022-12-07] MEDS: Vancomycin 125 MG/5 ML Susp PO.SYRINGE PO ×3 (05:27→17:06)
[2022-12-07] MEDS: Menthol/Lanolin/Calamine/Znox 113 GM Tube 1 APPLIC TOPICAL ×2 (05:31→21:22)
[2022-12-07] MEDS: oxyCODONE 5 MG Tablet 10 MG PO ×2 (06:31→14:59)
[2022-12-07] MEDS: Gabapentin 100 MG Capsule 200 MG PO ×3 (07:46→17:06)
[2022-12-07] MEDS: Potassium Chloride Oral Tablet 20 MEQ PO (07:46)
[2022-12-07] MEDS: Fenofibrate 48 MG Tablet PO (07:46)
[2022-12-07 07:53] VITALS: BP 152/53; PULSE 83; RESP 20; TEMP 36.6; O2SAT 96
[2022-12-07 08:10] VITALS: BP 152/53; PULSE 83; RESP 20; TEMP 36.6; O2SAT 96
[2022-12-07] MEDS: amLODIPine 10 MG Tablet PO (09:44)
[2022-12-07] MEDS: APIXABAN 5 MG TABLET PO ×2 (09:44→21:16)
[2022-12-07] MEDS: Losartan Potassium 100 MG Tablet PO (09:44)
[2022-12-07] MEDS: Pantoprazole Sodium 40 MG Tablet PO ×2 (09:45→21:21)
[2022-12-07] MEDS: Clopidogrel Bisulfate 75 MG Tablet PO (09:45)
[2022-12-07] MEDS: Senna/Docusate Sodium 1 Tablet 2 TABLET PO ×2 (09:45→21:20)
[2022-12-07] MEDS: Venlafaxine XR 150 MG Capsule PO (09:46)
[2022-12-07 09:47] VITALS: BMI 36.7
[2022-12-07] MEDS: Miconazole Nitrate 43 GM Bottle 1 APPLIC TOPICAL ×2 (10:40→21:22)
--- NOTE | 2022-12-07 11:09 | PN_ITS ---
Subjective Subjective Al was seen on team rounds today. His Lise was present in the room. Afebrile VSS -blood pressures are for the most part well controlled. Occasionally the systolic is above 130 but diastolic is always within normal limits. Current antihypertensives include amlodipine 10 mg daily, losartan 100 mg daily and Cardura 2 mg at bedtime. Maintaining appropriate oxygen saturation on RA Oral intake is good Discussed with nursing - no problems that need addressed Reviewed the PT/OT/ST notes Medication list reviewed. He received his last dose of Daptomycin today and will receive the last dose of Rocephin on 12/13/22. He is telling me that the back pain seems to be getting worse. He denies shae- rectal pain now and the monilial intertrigo is resolving. He denies CP, SOB, lightheadedness, dysuria, calf pain and pruritus. Also denies mouth sores, painful swallowing and diarrhea. Objective Data Objective Data Vital Signs: Vital Signs Temp Pulse Resp BP Pulse Ox O2 Del Method O2 Flow Rate 97.9 F 83 20 H 152/53 H 96 Room Air 2 12/07/22 08:10 12/07/22 08:10 12/07/22 08:10 12/07/22 08:10 12/07/22 08:10 12/07/22 08:10 12/05/22 16:36 FiO2 92 12/01/22 15:48 Oxygen Flow Rate (L/min) 2 Oxygen Delivery Method Room Air Weight: 293 lb 14.019 oz Body Mass Index (BMI) 36.7 Intake & Output: Intake and Output for Last 24 Hours 12/05/22 12/06/22 12/07/22 23:59 23:59 23:59 Intake Total 2316 / 2316 1895 / 1895 400 / 400 Output Total 2650 / 2650 2300 / 2300 850 / 850 Balance -334 / -334 -405 / -405 -450 / -450 Lab / Micro Data 12/02/22 05:07 12/02/22 05:07 Micro: Microbiology 11/17/22 23:55 Urine, Clean Catch Urine Culture - Final Culture exhibits no growth. Physical Exam Const alert, oriented x3 and no apparent distress Constitutional Narrative: Sitting in the recliner at the bedside. General Appearance: cooperative Resp clear to auscultation bilaterally Auscultation: diminished lung sounds Cardio regular rate and regular rhythm GI normal to inspection, nondistended, normoactive bowel sounds, soft to palpation and non-tender Extremity no calf tenderness General Extremity: Negative for edema Skin General Skin Exam: no breakdown Rashes: no rashes Psych affect normal Assessment & Plan Assessment/Plan (1) Physical debility: (2) Septic arthritis of hip: QUALIFIERS: Septic arthritis organism: due to unspecified organism Laterality: right Qualified Code(s): M00.9 - Pyogenic arthritis, unspecified PLAN: Culture negative and Whipple's PCR negative. (3) Anemia: QUALIFIERS: Anemia type: unspecified type Qualified Code(s): D64.9 - Anemia, unspecified PLAN: Stable but, not improving. Iron studies on 11/18 showed borderline low percent transferrin saturation. He has a history of iron deficiency in the past and has some chronic blood loss from the GI tract due to hemorrhoids. He was given Iron Sucrose 200 mg on 12/04/22. I do not think he is absorbing oral iron, even with Vitamin C. (4) Chronic lower back pain: QUALIFIERS: Back pain laterality: bilateral Sciatica presence: without sciatica Qualified Code(s): M54.50 - Low back pain, unspecified; G89.29 - Other chronic pain (5) Aortic valve regurgitation: QUALIFIERS: Cardiac valve disease etiology: nonrheumatic Qualified Code(s): I35.1 - Nonrheumatic aortic (valve) insufficiency (6) PFO (patent foramen ovale): (7) Monilial intertrigo: PLAN: Plan 1. Continue therapy 2. DC Cozaar and start lisinopril 10 mg twice daily....hold for systolic < 110. 3. recheck CBC with diff and a BMP in the AM. 4. Give a second dose of iron sucrose today. 5. Discuss pain mangement with Dr. Russo when he is available. Charges/Coding Visit Charges Inpatient E&M: 75500 Subs Hosp L2
[2022-12-07] MEDS: Ascorbic Acid 500 MG Tablet 1000 MG PO (12:50)
[2022-12-07] MEDS: Ferrous Sulfate 325 MG Tablet PO (12:50)
[2022-12-07] MEDS: Sodium Ferric Gluconat/Sucrose 125 MG in 0.9% Normal Saline (100mL Bag) 100 ML 110 MG IV (13:38)
--- NOTE | 2022-12-07 15:10 | CASEMGMT ---
Social Work Team meeting held today with pt and in attendance. PT/OT/ST reviewed pt's progress with therapy and RN and physician gave input on medical needs. Pt's IV ATB will be completed on 12/13/22. SW spoke with pt and regarding discharge plan. Discharge set for 12/14/22. All parties agreeable. Pt would benefit from outpt PT upon discharge and pt would like to go to [facility]. Referral made and orders faxed. [place] to contact pt's to set up appointment. Pt has all needed DME. Discharge Date: 12/14/22 Discharge Plan: Home with . Outpatient PT at [facility] Antony
[2022-12-07 20:59] VITALS: BP 133/56; PULSE 73; RESP 16; TEMP 36.8; O2SAT 92; BMI 36.7
[2022-12-07] MEDS: Doxazosin 1 MG Tablet 2 MG PO (21:17)
[2022-12-07] MEDS: traZODone 100 MG Tablet PO (21:18)
[2022-12-07] MEDS: Polyethylene Glycol 3350 17 GM PACKET PO (21:19)
[2022-12-07] MEDS: Lisinopril 10 MG Tablet PO (21:21)
[2022-12-07] MEDS: 0.9 % NaCl (Sterile) Posiflush 10 mL IV (22:40)
[2022-12-08] MEDS: Vancomycin 125 MG/5 ML Susp PO.SYRINGE PO ×5 (00:57→23:00)
[2022-12-08] MEDS: oxyCODONE 5 MG Tablet 10 MG PO ×4 (01:46→21:50)
--- NOTE | 2022-12-08 03:48 | NURSING ---
Reviewed and agree with Tiesha RAZA, documentation and assessment charting.
[2022-12-08 05:49] LABS: Hemoglobin 7.1 g/dL (13.0-16.5); Mean Corp Hgb Conc 29.6 g/dL (32-36); Mean Corpuscular Hgb 25.2 pg (27.0-32.0); Mean Corpuscular Volume 85.1 fL (80-94); Mean Platelet Vol. 10.5 fl (6.2-12.0); Platelet Count 242 K/mm3 (150-450); RBC Distribution Width CV 18.7 % (11.6-14.6); RBC Distribution Width SD 58.7 fl (35.1-43.9); Red Blood Count 2.82 M/mm3 (4.6-6.2); White Blood Count 6.6 K/mm3 (4.4-11.0)
[2022-12-08] MEDS: 0.9 % NaCl (Sterile) Posiflush 10 mL IV ×5 (06:01→22:45)
[2022-12-08] MEDS: Baclofen 10 MG Tablet 5 MG PO ×3 (06:06→21:40)
[2022-12-08] MEDS: Buprenorphine HCl 2 MG TAB.SUBL SL (06:07)
[2022-12-08] MEDS: Hydrocortisone 2.5% Crm 1 APPLIC TOPICAL ×3 (06:07→21:39)
[2022-12-08] MEDS: Acetaminophen 500 MG Tablet 1000 MG PO ×3 (06:07→21:42)
[2022-12-08] MEDS: Menthol/Lanolin/Calamine/Znox 113 GM Tube 1 APPLIC TOPICAL ×2 (06:08→21:35)
[2022-12-08 06:44] LABS: Anion Gap 1 (5-15); BUN 11 mg/dL (7-18); BUN/Creat Ratio 11.8 RATIO (10-20); Calcium,Total 8.8 mg/dL (8.5-10.1); Chloride 109 mmol/L (98-107); Creatinine, Serum 0.93 mg/dL (0.70-1.30); EST Glomerular Filtration Rate 88 mL/min (>60); Est Glom Filt Rate - Afr Amer 107 mL/min (>60); Estimated Creatinine Clearance 103.48 ml/min; Glucose 89 mg/dL (74-106); Potassium 4.2 mmol/L (3.5-5.1); Sodium Level 143 mmol/L (136-145)
[2022-12-08] MEDS: Gabapentin 100 MG Capsule 200 MG PO ×3 (09:16→17:52)
[2022-12-08] MEDS: Potassium Chloride Oral Tablet 20 MEQ PO (09:17)
[2022-12-08] MEDS: APIXABAN 5 MG TABLET PO ×2 (09:17→21:38)
[2022-12-08] MEDS: Clopidogrel Bisulfate 75 MG Tablet PO (09:17)
[2022-12-08] MEDS: Pantoprazole Sodium 40 MG Tablet PO ×2 (09:18→21:41)
[2022-12-08] MEDS: Fenofibrate 48 MG Tablet PO (09:18)
[2022-12-08] MEDS: amLODIPine 10 MG Tablet PO (09:18)
[2022-12-08] MEDS: Miconazole Nitrate 43 GM Bottle 1 APPLIC TOPICAL ×2 (09:19→21:36)
[2022-12-08] MEDS: Lisinopril 10 MG Tablet PO ×2 (09:19→21:42)
[2022-12-08] MEDS: Venlafaxine XR 150 MG Capsule PO (09:19)
[2022-12-08 10:00] VITALS: BP 135/54; RESP 14; TEMP 36.8; O2SAT 95
--- NOTE | 2022-12-08 11:49 | PN_ITS ---
Subjective Subjective Afebrile VSS Maintaining appropriate oxygen saturation on RA Oral intake is good Discussed with nursing - no problems that need addressed Reviewed the PT/OT/ST notes Medication list reviewed. Taking Oxycodone twice a day for the past [address] Russo recommends increasing the Buprenorphine to 4 mg TID SL. I left a message with his office that Al will be discharged next Wednesday and will need a prior auth on the Buprenorphine. All lab drawn this AM was personally reviewed. The white blood cell count is normal. Hemoglobin is 7.1 which is stable. Platelet count is 242,000. Sodium and potassium are within normal limits. Creatinine is 0.93 with a BUN of 11. Calcium is 8.8. Serum bicarb is mildly elevated at 33? Al denies chest pain, shortness of breath, palpitations, lightheadedness, abdominal pain, dysuria and calf pain. Objective Data Objective Data Vital Signs: Vital Signs Temp Pulse Resp BP Pulse Ox O2 Del Method O2 Flow Rate 98.3 F 73 14 135/54 H 95 Room Air 2 12/08/22 10:00 12/07/22 20:59 12/08/22 10:00 12/08/22 10:00 12/08/22 10:00 12/08/22 10:00 12/05/22 16:36 FiO2 92 12/01/22 15:48 Oxygen Flow Rate (L/min) 2 Oxygen Delivery Method Room Air Weight: 293 lb 14.019 oz Body Mass Index (BMI) 36.7 Intake & Output: Intake and Output for Last 24 Hours 12/06/22 12/07/22 12/08/22 23:59 23:59 23:59 Intake Total 1895 / 1895 1668 / 1668 905 / 905 Output Total 2300 / 2300 1250 / 1250 1100 / 1100 Balance -405 / -405 418 / 418 -195 / -195 Lab / Micro Data 12/10/22 11:50 12/08/22 05:35 Labs: Laboratory Results - last 24 hr 12/08/22 05:35: WBC 6.6, RBC 2.82 L, Hgb 7.1 L, Hct 24.0 L, MCV 85.1, MCH 25.2 L , MCHC 29.6 L, RDW Std Deviation 58.7 H, RDW Coeff of Ghassan 18.7 H, Plt Count 242, MPV 10.5, Sodium 143, Potassium 4.2, Chloride 109 H, Carbon Dioxide 33.0 H, Anion Gap 1 L, BUN 11, Creatinine 0.93, Estim Creat Clear Calc 103.48, Est GFR (MDRD) Af Amer 107, Est GFR (MDRD) Non-Af 88, BUN/Creatinine Ratio 11.8, Glucose 89, Calcium 8.8 Micro: Microbiology 11/17/22 23:55 Urine, Clean Catch Urine Culture - Final Culture exhibits no growth. Physical Exam Const alert and no apparent distress General Appearance: cooperative HEENT moist oral mucous membranes Resp normal respiratory effort, no use of accessory muscles and clear to auscultation bilaterally Effort and Inspection: Negative for tachypneic or labored Cardio regular rate, regular rhythm and no gallops GI normal to inspection, nondistended, normoactive bowel sounds, non-tender and non-distended GI Narrative: no guarding with palpation Extremity Negative for no calf tenderness General Extremity: Negative for edema Skin General Skin Exam: no breakdown Rashes: no rashes Psych affect normal Assessment & Plan Assessment/Plan (1) Physical debility: (2) Septic arthritis of hip: QUALIFIERS: Septic arthritis organism: due to unspecified organism Laterality: right Qualified Code(s): M00.9 - Pyogenic arthritis, unspecified PLAN: No pathogen ever identified. PCR for Whipple's negative. (3) Chronic lower back pain: QUALIFIERS: Back pain laterality: bilateral Sciatica presence: without sciatica Qualified Code(s): M54.50 - Low back pain, unspecified; G89.29 - Other chronic pain PLAN: No radicular pain. CT is done of the lumbar spine done in August 2022 showed multilevel degenerative changes and changes in L3 and L4 secondary to vertebral osteomyelitis. Had a IR biopsy of the bone and no pathogen identified. There was some disc space narrowing and anterior spondylosis but no herniations and no central canal stenosis. Had an Epiudural with Dr. Russo that didn't help much. 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 He has been seen by Dr. Tubbs who referred him to Dr. Escalante for surgery but, he saw Dr. Foster on 10/21/22 who recommends he proceed with surgery.......unfortunately before the surgery could be arranged he developed septic arthritis of the R hip and C. DIFF and needed 6 weeks of IV antibiotics. (5) PFO (patent foramen ovale): (6) Monilial intertrigo: PLAN: Perirectal.......treated with Calmoseptine and Diflucan weekly X 4. Likely due to moisture and irritation from C. Diff/diarrhea. Much improved at DC and no longer painful. (7) Presence of IVC filter: PLAN: Had DVT at the time he had a SAH and could not be anticoagulated so Dr. Donohue placed a IVC filter. After the heart surgery he can contact Dr. Donohue t o remove. (8) Iron deficiency: PLAN: Does no absorb PO iron, even when given with ascorbic acid. He has received intravenous iron several times since he came to acute rehab initially following multiple embolic strokes. (9) Heme positive stool: PLAN: Due to hemorrhoids. Has been scoped in the past 6 months. (10) Stroke/cerebrovascular accident: QUALIFIERS: CVA mechanism: embolism Precerebral and cerebral artery: middle cerebral artery Laterality of affected vessel: right Qualified Code(s): I63.411 - Cerebral infarction due to embolism of right middle cerebral artery PLAN: Due to DVT of the RLE following a vascular stent and the PFO. Multiple BL embolic strokes. (11) Whipple's disease: (12) GERD (gastroesophageal reflux disease): QUALIFIERS: Esophagitis presence: without esophagitis Qualified Code(s): K21.9 - Gastro-esophageal reflux disease without esophagitis (13) Hypertension: QUALIFIERS: Hypertension type: primary hypertension Qualified Code(s): I10 - Essential (primary) hypertension (14) Presence of arterial stent: (15) Peripheral vascular disease: (16) Obesity: (17) Internal and external bleeding hemorrhoids: (18) Acute renal failure: QUALIFIERS: Acute renal failure type: unspecified Qualified Code(s): N17.9 - Acute kidney failure, unspecified PLAN: Due to septic shock and IV contrast. Had 3 dialysis sessions total. (19) Clostridium difficile enterocolitis: PLAN: Plan 1. Continue therapy 2. Check a serum albumin now and calculate the true calcium corrected for hypoalbuminemia. 3. Check orthostatic vital signs today. 4. Increase buprenorphine to 4 mg p.o. every 8 hours. Continue Oxycodone 10 mg Q6H PRN. Charges/Coding Visit Charges Inpatient E&M: 90892 Subs Hosp L2
[2022-12-08 12:12] VITALS: BP 130/46; BP 131/61; BP 137/57; PULSE 84; PULSE 86; PULSE 89
[2022-12-08] MEDS: Ascorbic Acid 500 MG Tablet 1000 MG PO (12:21)
[2022-12-08] MEDS: Ferrous Sulfate 325 MG Tablet PO (12:21)
[2022-12-08 12:25] LABS: Albumin, Serum 2.6 g/dL (3.2-5.0)
[2022-12-08] MEDS: Buprenorphine HCl 2 MG TAB.SUBL 4 MG SL ×2 (15:25→21:51)
[2022-12-08 16:29] VITALS: BMI 36.7
[2022-12-08] MEDS: FLUCONAZOLE 150 MG TABLET PO (17:52)
[2022-12-08] MEDS: Alteplase 2 MG/2 ML Vial IV (20:04)
[2022-12-08 20:05] VITALS: BMI 36.7
[2022-12-08] MEDS: Doxazosin 1 MG Tablet 2 MG PO (21:36)
[2022-12-08] MEDS: traZODone 100 MG Tablet PO (21:37)
[2022-12-08] MEDS: Polyethylene Glycol 3350 17 GM PACKET PO (21:40)
[2022-12-08] MEDS: Senna/Docusate Sodium 1 Tablet 2 TABLET PO (21:41)
[2022-12-08 22:00] VITALS: BP 136/65; PULSE 78; PULSE 82; RESP 18; TEMP 37.2; O2SAT 91
--- NOTE | 2022-12-09 03:24 | NURSING ---
Reviewed and agree with Ambreen RAZA, documentation and assessment charting.
[2022-12-09] MEDS: Baclofen 10 MG Tablet 5 MG PO ×3 (05:26→21:02)
[2022-12-09] MEDS: Buprenorphine HCl 2 MG TAB.SUBL 4 MG SL ×3 (05:26→21:02)
[2022-12-09] MEDS: Acetaminophen 500 MG Tablet 1000 MG PO ×3 (05:26→21:03)
[2022-12-09] MEDS: Menthol/Lanolin/Calamine/Znox 113 GM Tube 1 APPLIC TOPICAL ×3 (05:27→21:13)
[2022-12-09] MEDS: Vancomycin 125 MG/5 ML Susp PO.SYRINGE PO ×4 (05:27→23:10)
[2022-12-09] MEDS: Hydrocortisone 2.5% Crm 1 APPLIC TOPICAL (05:27)
[2022-12-09 08:01] VITALS: BP 119/58; PULSE 77; RESP 16; TEMP 37.1; O2SAT 97
[2022-12-09] MEDS: APIXABAN 5 MG TABLET PO ×2 (09:19→21:04)
[2022-12-09] MEDS: Lisinopril 10 MG Tablet PO ×2 (09:19→21:03)
[2022-12-09] MEDS: amLODIPine 10 MG Tablet PO (09:19)
[2022-12-09] MEDS: Venlafaxine XR 150 MG Capsule PO (09:19)
[2022-12-09] MEDS: Pantoprazole Sodium 40 MG Tablet PO ×2 (09:19→21:03)
[2022-12-09] MEDS: Clopidogrel Bisulfate 75 MG Tablet PO (09:20)
[2022-12-09] MEDS: Fenofibrate 48 MG Tablet PO (09:20)
[2022-12-09] MEDS: Potassium Chloride Oral Tablet 20 MEQ PO (09:21)
[2022-12-09] MEDS: Miconazole Nitrate 43 GM Bottle 1 APPLIC TOPICAL ×2 (09:27→21:13)
[2022-12-09] MEDS: oxyCODONE 5 MG Tablet 10 MG PO ×2 (09:30→18:05)
[2022-12-09] MEDS: Gabapentin 100 MG Capsule 200 MG PO ×3 (09:46→17:03)
[2022-12-09 12:23] VITALS: BMI 36.7
[2022-12-09] MEDS: Ascorbic Acid 500 MG Tablet 1000 MG PO (12:51)
[2022-12-09] MEDS: Ferrous Sulfate 325 MG Tablet PO (12:51)
[2022-12-09 20:08] VITALS: BP 107/51; PULSE 75; RESP 18; TEMP 36.3; O2SAT 92
[2022-12-09 20:10] VITALS: BMI 36.7
[2022-12-09 20:15] VITALS: O2SAT 92
[2022-12-09] MEDS: Doxazosin 1 MG Tablet 2 MG PO (21:03)
[2022-12-09] MEDS: Senna/Docusate Sodium 1 Tablet 2 TABLET PO (21:04)
[2022-12-09] MEDS: Polyethylene Glycol 3350 17 GM PACKET PO (21:04)
[2022-12-09] MEDS: traZODone 100 MG Tablet PO (21:04)
[2022-12-10] MEDS: Acetaminophen 500 MG Tablet 1000 MG PO ×3 (05:16→21:31)
[2022-12-10] MEDS: Baclofen 10 MG Tablet 5 MG PO ×3 (05:16→21:30)
[2022-12-10] MEDS: Buprenorphine HCl 2 MG TAB.SUBL 4 MG SL ×3 (05:16→21:31)
[2022-12-10] MEDS: Menthol/Lanolin/Calamine/Znox 113 GM Tube 1 APPLIC TOPICAL ×3 (05:17→21:33)
[2022-12-10] MEDS: Vancomycin 125 MG/5 ML Susp PO.SYRINGE PO ×4 (05:18→23:56)
[2022-12-10 07:17] VITALS: BP 136/55; PULSE 86; RESP 15; TEMP 37.1; O2SAT 95
[2022-12-10] MEDS: Venlafaxine XR 150 MG Capsule PO (08:58)
[2022-12-10] MEDS: Fenofibrate 48 MG Tablet PO (08:58)
[2022-12-10] MEDS: Pantoprazole Sodium 40 MG Tablet PO ×2 (08:58→21:30)
[2022-12-10] MEDS: Lisinopril 10 MG Tablet PO ×2 (08:58→21:31)
[2022-12-10] MEDS: APIXABAN 5 MG TABLET PO ×2 (08:58→21:31)
[2022-12-10] MEDS: Gabapentin 100 MG Capsule 200 MG PO ×3 (08:58→17:20)
[2022-12-10] MEDS: Clopidogrel Bisulfate 75 MG Tablet PO (08:58)
[2022-12-10] MEDS: Potassium Chloride Oral Tablet 20 MEQ PO (08:58)
[2022-12-10] MEDS: amLODIPine 10 MG Tablet PO (08:58)
[2022-12-10] MEDS: 0.9% Saline Lock 10 ML Syringe IV (09:02)
[2022-12-10] MEDS: Miconazole Nitrate 43 GM Bottle 1 APPLIC TOPICAL ×2 (09:07→21:33)
--- NOTE | 2022-12-10 10:28 | PCM.PROGNOTE ---
Subjective Subjective Afebrile VSS-blood pressures adequately controlled. Maintaining appropriate oxygen saturation on RA Oral intake is good Discussed with nursing - no problems that need addressed Reviewed the PT/OT/ST notes Medication list reviewed. Albaro is complaining of left hip and groin pain today. No radiation into the left leg. No paresthesias. AF. White blood cell count Wednesday was 6.6. He does not have an antalgic gait. He denies night sweats and shaking chills. He does not appear to be in any distress at the present time. Objective Data Objective Data Vital Signs: Vital Signs Temp Pulse Resp BP Pulse Ox O2 Del Method O2 Flow Rate 98.7 F 86 15 136/55 H 95 Room Air 2 12/10/22 07:17 12/10/22 07:17 12/10/22 07:17 12/10/22 07:17 12/10/22 07:17 12/10/22 07:17 12/05/22 16:36 FiO2 92 12/01/22 15:48 Oxygen Flow Rate (L/min) 2 Oxygen Delivery Method Room Air Weight: 293 lb 14.019 oz Body Mass Index (BMI) 36.7 Intake & Output: Intake and Output for Last 24 Hours 12/08/22 12/09/22 12/10/22 23:59 23:59 23:59 Intake Total 3055 / 3305 2019 / 2019 650 / 650 Output Total 1500 / 1800 1150 / 1150 700 / 700 Balance 1555 / 1505 870 / 870 -50 / -50 Lab / Micro Data 12/10/22 11:50 12/08/22 05:35 Micro: Microbiology 11/17/22 23:55 Urine, Clean Catch Urine Culture - Final Culture exhibits no growth. Physical Exam Const alert and no apparent distress General Appearance: cooperative HEENT moist oral mucous membranes Resp normal respiratory effort, no use of accessory muscles and clear to auscultation bilaterally Effort and Inspection: Negative for tachypneic or labored Cardio regular rate, regular rhythm and no gallops GI normal to inspection, nondistended, normoactive bowel sounds, non-tender and non-distended GI Narrative: no guarding with palpation Extremity Negative for no calf tenderness Extremity Narrative: There is no swelling in the area of the right hip or in the groin. There is no erythema of the skin and no increased warmth to touch. He denies pain in his buttocks. He is ambulating with a front wheeled walker with a normal tandem gait. General Extremity: Negative for edema Skin General Skin Exam: no breakdown Rashes: no rashes Psych affect normal Assessment & Plan Assessment/Plan (1) Left hip pain: (2) Septic arthritis of hip: QUALIFIERS: Septic arthritis organism: due to unspecified organism Laterality: right Qualified Code(s): M00.9 - Pyogenic arthritis, unspecified PLAN: Plan 1. Continue therapy 2. Continue Rocephin 3. Plain x-ray of the left hip and pelvis today 4. Check a CBC with differential, ESR and CRP Charges/Coding Visit Charges Inpatient E&M: 42088 Subs Hosp L2
[2022-12-10] MEDS: Ascorbic Acid 500 MG Tablet 1000 MG PO (11:56)
[2022-12-10] MEDS: Ferrous Sulfate 325 MG Tablet PO (11:56)
[2022-12-10 12:03] LABS: Erythrocyte Sedimentation Rate 32 mm/hr (0-20)
[2022-12-10 12:08] LABS: Absolute Lymphocyte Count 1.23 X10^3/uL (0.83-4.51); Absolute Neutrophil Count 4.4 X10^3/uL (2.0-7.7); Basophil# 0.05 X10^3/uL; Basophil% 0.7 % (0-1); Eosinophil# 0.42 X10^3/uL; Eosinophils% 6.2 % (0-5); Hematocrit 25.8 % (40-54); Hemoglobin 7.5 g/dL (13.0-16.5); Lymphocyte # 1.23 X10^3/ul (0.83-4.51); Lymphocyte % 18.2 % (19-41); Mean Corp Hgb Conc 29.1 g/dL (32-36); Mean Corpuscular Hgb 25.3 pg (27.0-32.0); Mean Corpuscular Volume 86.9 fL (80-94); Mean Platelet Vol. 11.2 fl (6.2-12.0); Monocyte# 0.63 X10^3/uL; Monocyte% 9.3 % (0-10); NRBC Flagged by Analyzer 0 % (0-5); Neutrophil # 4.38 X10^3/uL (2.7-7.7); Neutrophil % 64.7 % (47-70); Platelet Count 265 K/mm3 (150-450); RBC Distribution Width CV 18.7 % (11.6-14.6); RBC Distribution Width SD 59.8 fl (35.1-43.9); Red Blood Count 2.97 M/mm3 (4.6-6.2); White Blood Count 6.8 K/mm3 (4.4-11.0)
[2022-12-10 15:31] VITALS: BMI 36.7
--- NOTE | 2022-12-10 15:50 | RAD_ITS ---
INDICATION: pain LEFT HIP PAIN, HX OF INFECTION IN THE RIGHT HIP W/ ASPIRATION EXAMINATION/TECHNIQUE: X-RAY - XR Hip Unilateral with Pelvis when performed; 2-3 Views COMPARISON: None FINDINGS: No fracture demonstrated. Femoral heads are normal contour. No dislocation of the hips. RAD/HIP, UNI W/ Pelvis 2-3 Views IMPRESSION: No evidence of fracture. No acute findings. MRI may be helpful for further evaluation if strong suspicion for hip effusion or septic arthritis. Electronically Signed: Yarelis Pathak MD at 22:58 EDT ,
[2022-12-10] MEDS: oxyCODONE 5 MG Tablet 10 MG PO (17:20)
[2022-12-10 20:00] VITALS: BP 145/66; PULSE 81; RESP 18; TEMP 36.9; O2SAT 92
[2022-12-10] MEDS: 0.9 % NaCl (Sterile) Posiflush 10 mL IV (20:33)
[2022-12-10] MEDS: Doxazosin 1 MG Tablet 2 MG PO (21:30)
[2022-12-10] MEDS: Senna/Docusate Sodium 1 Tablet 2 TABLET PO (21:30)
[2022-12-10] MEDS: traZODone 100 MG Tablet PO (21:30)
[2022-12-11 01:32] VITALS: BMI 36.7
[2022-12-11] MEDS: Buprenorphine HCl 2 MG TAB.SUBL 4 MG SL ×3 (05:52→22:23)
[2022-12-11] MEDS: Vancomycin 125 MG/5 ML Susp PO.SYRINGE PO ×4 (05:52→23:00)
[2022-12-11] MEDS: Acetaminophen 500 MG Tablet 1000 MG PO ×3 (05:52→22:24)
[2022-12-11] MEDS: Menthol/Lanolin/Calamine/Znox 113 GM Tube 1 APPLIC TOPICAL ×3 (05:53→22:35)
[2022-12-11] MEDS: Baclofen 10 MG Tablet 5 MG PO ×3 (05:54→22:26)
[2022-12-11 06:00] VITALS: BMI 36.9
[2022-12-11] MEDS: oxyCODONE 5 MG Tablet 10 MG PO ×2 (06:10→20:40)
[2022-12-11] MEDS: Venlafaxine XR 150 MG Capsule PO (07:57)
[2022-12-11] MEDS: Potassium Chloride Oral Tablet 20 MEQ PO (07:57)
[2022-12-11] MEDS: APIXABAN 5 MG TABLET PO ×2 (07:57→22:24)
[2022-12-11] MEDS: Lisinopril 10 MG Tablet PO ×2 (07:58→22:28)
[2022-12-11] MEDS: Senna/Docusate Sodium 1 Tablet 2 TABLET PO ×2 (07:58→22:28)
[2022-12-11] MEDS: Clopidogrel Bisulfate 75 MG Tablet PO (07:58)
[2022-12-11] MEDS: Pantoprazole Sodium 40 MG Tablet PO ×2 (07:58→22:25)
[2022-12-11] MEDS: Fenofibrate 48 MG Tablet PO (07:58)
[2022-12-11] MEDS: amLODIPine 10 MG Tablet PO (07:58)
[2022-12-11] MEDS: Gabapentin 100 MG Capsule 200 MG PO ×3 (08:00→18:04)
[2022-12-11] MEDS: Miconazole Nitrate 43 GM Bottle 1 APPLIC TOPICAL ×2 (08:02→22:34)
[2022-12-11 09:02] VITALS: BP 126/50; PULSE 78; RESP 16; TEMP 36.7; O2SAT 95
[2022-12-11 09:09] VITALS: BMI 36.9
[2022-12-11] MEDS: 0.9 % NaCl (Sterile) Posiflush 10 mL IV (09:54)
[2022-12-11] MEDS: Ascorbic Acid 500 MG Tablet 1000 MG PO (12:11)
[2022-12-11] MEDS: Ferrous Sulfate 325 MG Tablet PO (12:11)
[2022-12-11 19:46] VITALS: BP 134/63; PULSE 79; RESP 17; TEMP 37.1; O2SAT 94
[2022-12-11 20:35] VITALS: O2SAT 96
[2022-12-11] MEDS: Doxazosin 1 MG Tablet 2 MG PO (22:26)
[2022-12-11] MEDS: traZODone 100 MG Tablet PO (22:29)
[2022-12-12] MEDS: Acetaminophen 500 MG Tablet 1000 MG PO ×3 (05:36→22:13)
[2022-12-12] MEDS: Baclofen 10 MG Tablet 5 MG PO ×3 (05:37→22:13)
[2022-12-12] MEDS: Vancomycin 125 MG/5 ML Susp PO.SYRINGE PO ×4 (05:37→23:00)
[2022-12-12] MEDS: Buprenorphine HCl 2 MG TAB.SUBL 4 MG SL ×3 (05:38→21:55)
[2022-12-12] MEDS: Menthol/Lanolin/Calamine/Znox 113 GM Tube 1 APPLIC TOPICAL ×3 (05:41→22:13)
[2022-12-12 08:00] VITALS: BP 128/52; PULSE 77; RESP 18; TEMP 36.8; O2SAT 95
[2022-12-12] MEDS: Lisinopril 10 MG Tablet PO ×2 (09:45→22:13)
[2022-12-12] MEDS: amLODIPine 10 MG Tablet PO (09:45)
[2022-12-12] MEDS: Pantoprazole Sodium 40 MG Tablet PO ×2 (09:45→22:12)
[2022-12-12] MEDS: Clopidogrel Bisulfate 75 MG Tablet PO (09:46)
[2022-12-12] MEDS: APIXABAN 5 MG TABLET PO ×2 (09:46→22:13)
[2022-12-12] MEDS: Potassium Chloride Oral Tablet 20 MEQ PO (09:46)
[2022-12-12] MEDS: Fenofibrate 48 MG Tablet PO (09:46)
[2022-12-12] MEDS: Miconazole Nitrate 43 GM Bottle 1 APPLIC TOPICAL ×2 (09:46→22:13)
[2022-12-12] MEDS: Venlafaxine XR 150 MG Capsule PO (09:47)
[2022-12-12] MEDS: Gabapentin 100 MG Capsule 200 MG PO ×3 (09:51→18:13)
[2022-12-12] MEDS: 0.9 % NaCl (Sterile) Posiflush 10 mL IV ×2 (09:53→15:17)
[2022-12-12] MEDS: Ascorbic Acid 500 MG Tablet 1000 MG PO (11:42)
[2022-12-12] MEDS: Ferrous Sulfate 325 MG Tablet PO (11:42)
[2022-12-12 14:40] VITALS: BMI 36.9
[2022-12-12] MEDS: oxyCODONE 5 MG Tablet 10 MG PO ×2 (15:09→22:10)
[2022-12-12 19:40] VITALS: BP 111/46; PULSE 68; RESP 16; TEMP 36.9; O2SAT 93
[2022-12-12 21:41] VITALS: BMI 36.9
[2022-12-12 22:00] VITALS: BP 136/86; PULSE 84
[2022-12-12] MEDS: Polyethylene Glycol 3350 17 GM PACKET PO (22:12)
[2022-12-12] MEDS: Senna/Docusate Sodium 1 Tablet 2 TABLET PO (22:12)
[2022-12-12] MEDS: Doxazosin 1 MG Tablet 2 MG PO (22:12)
[2022-12-12] MEDS: traZODone 100 MG Tablet PO (22:13)
[2022-12-13] MEDS: Baclofen 10 MG Tablet 5 MG PO ×3 (05:40→21:39)
[2022-12-13] MEDS: Vancomycin 125 MG/5 ML Susp PO.SYRINGE PO ×4 (05:41→23:38)
[2022-12-13] MEDS: Buprenorphine HCl 2 MG TAB.SUBL 4 MG SL ×3 (05:41→21:37)
[2022-12-13] MEDS: Menthol/Lanolin/Calamine/Znox 113 GM Tube 1 APPLIC TOPICAL ×3 (05:41→21:50)
[2022-12-13] MEDS: Acetaminophen 500 MG Tablet 1000 MG PO ×3 (05:41→21:40)
[2022-12-13] MEDS: Fenofibrate 48 MG Tablet PO (08:13)
[2022-12-13] MEDS: Potassium Chloride Oral Tablet 20 MEQ PO (08:14)
[2022-12-13] MEDS: Gabapentin 100 MG Capsule 200 MG PO ×3 (08:16→17:17)
[2022-12-13 08:34] VITALS: BP 117/64; PULSE 85; RESP 16; TEMP 37.1; O2SAT 94
[2022-12-13 09:14] VITALS: BMI 36.9
[2022-12-13] MEDS: Clopidogrel Bisulfate 75 MG Tablet PO (10:16)
[2022-12-13] MEDS: APIXABAN 5 MG TABLET PO ×2 (10:16→21:39)
[2022-12-13] MEDS: amLODIPine 10 MG Tablet PO (10:16)
[2022-12-13] MEDS: Pantoprazole Sodium 40 MG Tablet PO ×2 (10:17→21:40)
[2022-12-13] MEDS: Venlafaxine XR 150 MG Capsule PO (10:17)
[2022-12-13] MEDS: Lisinopril 10 MG Tablet PO ×2 (10:18→21:40)
[2022-12-13] MEDS: Miconazole Nitrate 43 GM Bottle 1 APPLIC TOPICAL ×2 (10:26→21:50)
[2022-12-13] MEDS: Ascorbic Acid 500 MG Tablet 1000 MG PO (12:01)
[2022-12-13] MEDS: Ferrous Sulfate 325 MG Tablet PO (12:02)
[2022-12-13] MEDS: oxyCODONE 5 MG Tablet 10 MG PO ×2 (13:06→19:54)
[2022-12-13 19:26] VITALS: BP 142/54; PULSE 80; RESP 17; TEMP 37.2; O2SAT 96
[2022-12-13 20:15] VITALS: BMI 36.9
[2022-12-13] MEDS: Doxazosin 1 MG Tablet 2 MG PO (21:38)
[2022-12-13] MEDS: traZODone 100 MG Tablet PO (21:39)
[2022-12-13] MEDS: Polyethylene Glycol 3350 17 GM PACKET PO (21:39)
[2022-12-13] MEDS: Senna/Docusate Sodium 1 Tablet 2 TABLET PO (21:40)
[2022-12-13 22:00] VITALS: PULSE 65; RESP 16; O2SAT 96
[2022-12-13] MEDS: 0.9 % NaCl (Sterile) Posiflush 10 mL IV (23:37)
[2022-12-14] MEDS: oxyCODONE 5 MG Tablet 10 MG PO ×2 (04:38→11:02)
[2022-12-14] MEDS: Buprenorphine HCl 2 MG TAB.SUBL 4 MG SL ×2 (05:16→14:24)
[2022-12-14] MEDS: Acetaminophen 500 MG Tablet 1000 MG PO ×2 (05:16→14:03)
[2022-12-14] MEDS: Baclofen 10 MG Tablet 5 MG PO ×2 (05:16→14:03)
[2022-12-14] MEDS: Menthol/Lanolin/Calamine/Znox 113 GM Tube 1 APPLIC TOPICAL ×2 (05:17→14:25)
[2022-12-14] MEDS: Vancomycin 125 MG/5 ML Susp PO.SYRINGE PO ×2 (05:22→11:02)
[2022-12-14 07:00] VITALS: BP 118/56; PULSE 79; RESP 16; TEMP 36.4; O2SAT 95
[2022-12-14] MEDS: Gabapentin 100 MG Capsule 200 MG PO ×2 (09:05→11:02)
[2022-12-14] MEDS: Fenofibrate 48 MG Tablet PO (09:06)
[2022-12-14] MEDS: Potassium Chloride Oral Tablet 20 MEQ PO (09:06)
[2022-12-14] MEDS: Clopidogrel Bisulfate 75 MG Tablet PO (09:06)
[2022-12-14] MEDS: Venlafaxine XR 150 MG Capsule PO (09:06)
[2022-12-14] MEDS: Pantoprazole Sodium 40 MG Tablet PO (09:06)
[2022-12-14] MEDS: Lisinopril 10 MG Tablet PO (09:07)
[2022-12-14] MEDS: APIXABAN 5 MG TABLET PO (09:07)
[2022-12-14] MEDS: amLODIPine 10 MG Tablet PO (09:07)
[2022-12-14 10:05] VITALS: BMI 36.9
--- NOTE | 2022-12-14 10:15 | DCINST_ITS ---
Discharge Instructions Diet Discharge Diet: - (Low salt) Activity Discharge Activity: May Drive, May Shower and Use Walker May resume sexual activity in: No Restrictions Weight Bearing Status: Full weight bearing Dressing / Incision Call your doctor if you observe: Fever of 101 or Higher, Inability to urinate, Shortness of breath, Dizziness, Fainting spells, Chest pain, Increased palpitations (irregular heartbeat), Calf discomfort, Uncontrolled pain and - (night sweats, diarrhea, STROKE symptoms: facial droop, slurred speech, inability to get words out, weakness on 1 side of the body and not the other, numbness on 1 side of the body and not the other, inability to maintain your balance sitting or standing, vertigo. ) Follow Up Care Please Follow Up With: Padmini Russo MD When: You will also need to follow up with Dr. Morgan and Dr. Christensen and the [facility] (I suggest Dr. Pablo or Dr. Hal Mcgee, they are both back surgeons). You will need to have discs with the MRI and CT scans of your back to take to the appt. You can request these from radiology. Test Results: Test results from this visit will be discussed in further detail at your follow- up appointment, if applicable. Pending Tests Upon Discharge: none Discharge Plan Admission Admit Date/Time: 11/17/22 18:20 Primary Reason for Your Visit: Debility due to septic R hip Attending Provider: Sylvie Plata Primary Care Provider: Eleazar Hernandez Consulting Providers: Franc Donohue Instructions Additional Instructions / Restrictions: 1. The XRAY of the hip looked good. Minimal arthritis, no fracture and normal appearing bone BUT, if the pain continues to worsen you may need an MRI of the hip because it is better when looking for fluid in the joint and signs of infection. The lab we did looks better than at anytime during your stays on rehab. I am going to send you home on an antibiotic called Doxycycline........it is a form of Tetracycline. Dr. Morgan's office has told us they do not take your insurance but, they said someone from the financial office would get in touch with you. I know that with all the extended hospital stays and not working your finances are probably very limited now. IF you can not see your current PCP there is a clinic in [facility] called [facility]. They take everyone......Medicaid and all insurances. Two of my former colleagues work there and they are both nurse practitioners. I have worked with both of them and trust them completely to make good decisions. Reina Macdonald and Jhonny Geller. If you are not able to follow up with Dr. Morgan maybe we can have you follow up with Dr. Riojas. 2. I do not know what bacteria is causing all these infections......I do not think anyone else does either. I hope there are no more going forward. I want you to see Dr. Christensen and get working on an appt for the aortic valve replacement and the closure of the PFO so that you can move on with your life. Dr. Donohue can remove the IVC filter after the heart surgery. 3. I want you to stop taking Tylenol. If you are having fevers we need to know about it.........and I do not want the Tylenol suppressing any fevers. Also want to know about any shaking chills or night sweats. 4. If you or [place] have any questions after you leave rehab please do not hesitate to call me. CELL: [phone] OFFICE: [phone] Crossing my fingers and toes and saying a prayer for you.......no more infections and it is smooth sailing from here on out. Discharge Orders/Prescriptions Prescriptions: New pantoprazole 40 mg Tablet,Delayed Release (Dr/Ec) 40 mg PO BID Qty: 80 0RF fluconazole 150 mg Tablet 150 mg PO Q7D Qty: 2 0RF Rx Instructions: Take 1 on 12/15 and the other 12/22/22 sennosides-docusate sodium [Stool Softener-Stimulant Laxat] 8.6-50 mg Tablet 2 tab PO BID Qty: 120 0RF lisinopril 10 mg Tablet 10 mg PO BID Qty: 60 0RF gabapentin 300 mg capsule 300 mg PO TID Qty: 90 0RF doxycycline monohydrate 100 mg capsule 100 mg PO BID Qty: 60 0RF oxycodone 5 mg Tablet 10 mg PO Q6H PRN PRN (Reason: Pain Score 4-10) 7 Days Qty: 28 0RF Continued alum-mag hydroxide-simeth [Mag-Al Plus Extra Strength] 400-400-40 mg/5 mL Suspension 15 ml PO Q6H PRN PRN (Reason: HEARTBURN OR INDIGESTION) Qty: 1 0RF ascorbic acid (vitamin C) 500 mg tablet 1,000 mg PO 1200 venlafaxine 150 mg Capsule,Extended Release 24hr 150 mg PO DAILY Qty: 30 0RF clopidogrel [Plavix] 75 mg Tablet 75 mg PO DAILY Qty: 30 0RF potassium chloride [Klor-Con M20] 20 mEq Tablet,Er Particles/Crystals 20 meq PO DAILYCM Qty: 30 0RF trazodone 100 mg Tablet 100 mg PO QHS Qty: 30 0RF baclofen 10 mg Tablet 5 mg PO TID Qty: 45 0RF ferrous sulfate [FeroSul] 325 mg (65 mg iron) tablet 325 mg PO DAILY@1200 Qty: 30 0RF Rx Instructions: Take this medication with the Vitamin C and with a meal to improve absorption doxazosin [Cardura] 2 mg tablet 2 mg PO QHS Qty: 30 0RF fenofibrate nanocrystallized 48 mg tablet 48 mg PO DAILYCM Qty: 30 0RF oxycodone 10 mg tablet 10 mg PO Q6H PRN (Reason: pain) 7 Days Qty: 28 0RF Eliquis 5 mg Tablet 5 mg PO BID Qty: 60 0RF Discontinued polyethylene glycol 3350 17 g PO/SL QHS gabapentin 100 mg Capsule 200 mg PO TIDCM Qty: 90 0RF losartan 100 mg Tablet 100 mg PO DAILY Qty: 30 0RF sennosides-docusate sodium [Stool Softener-Stimulant Laxat] 8.6-50 mg Tablet 2 tab PO BID Qty: 120 0RF pantoprazole 40 mg tablet,delayed release (DR/EC) 40 mg PO DAILY Qty: 30 0RF acetaminophen 500 mg Tablet 1,000 mg PO Q8 Qty: 0 0RF naynhgnhvr-jzwiernkenzyt-oahn 50-325-40 mg Tablet 1 tab PO Q6H PRN PRN (Reason: Headache) Qty: 0 0RF daptomycin 500 mg Recon Soln 900 mg IV Q48H 20 Days Qty: 1 0RF Rx Instructions: Discontinue on 12/07/2022-total of 30 days treatment from 11/05/2022 vancomycin [Firvanq] 25 mg/mL Recon Soln 125 mg PO Q6 20 Days Qty: 400 0RF Rx Instructions: Discontinue after IV antibiotics have finished ceftriaxone 2 gram recon soln 2 g IV Q24H 20 Days Rx Instructions: Discontinue on 12/07/2022 menthol-zinc oxide [Calmoseptine] 0.44-20.6 % Ointment 1 applic topical TID Protocol: *Topical Application Instructions APPLICATION INSTRUCTIONS: apply to buttocks/ coccyx, scrotum and groin. Rx Instructions: BILAT BUTTOCKS, GROIN, SCROTUM amlodipine 10 mg tablet 2.5 mg PO DAILY Patient Comments: 10 MG ORALLY DAILY Referrals / Follow Up: [facility] [Other] Padmini Russo MD [Med Staff - Active Staff] - 12/16/22 2:00 pm (1 week after DC) Leona Tubbs MD [Med Staff - Active Staff] - 12/24/22 1:00 pm Eleazar Hernandez DO [Primary Care Provider] - 12/21/22 10:50 am Disposition Disposition (needs filled in before D/C Order can be placed): Home, Self Care
[2022-12-14] MEDS: Ascorbic Acid 500 MG Tablet 1000 MG PO (11:01)
[2022-12-14] MEDS: Ferrous Sulfate 325 MG Tablet PO (11:01)
--- NOTE | 2022-12-14 12:15 | PCM.DC.SUM ---
Providers Date of Admission: 11/17/22 Date of Discharge: 12/14/22 Primary Care Physician: Dr. Eleazar Hernandez, DO Consultations 11/20/22 11:43 Consult: Vascular Surgery Routine Consulting Provider: Franc Donohue Reason for Consult: removal of IVC filter EMERGENT Consult: No MD Notified: Yes Date Notified: 11/20/22 Time Notified: 11:43 Method of Notification: Text Reason For Visit: DEBILITY Diagnosis Discharge Diagnosis (1) Physical debility: Status: Inactive Code(s): R53.81 - Other malaise (2) Septic arthritis of hip: Status: Acute Code(s): M00.9 - Pyogenic arthritis, unspecified Qualifiers: Laterality: right Septic arthritis organism: due to unspecified organism Qualified Code(s): M00.9 - Pyogenic arthritis, unspecified Plan: No pathogen ever identified. PCR for Whipple's negative. (3) Anemia: Status: Chronic Code(s): D64.9 - Anemia, unspecified Qualifiers: Anemia type: unspecified type Qualified Code(s): D64.9 - Anemia, unspecified Plan: Due to bone marrow suppression due to infection/inflammation going on for the past [address] Vizcaino for anemia and the Elevation in IgA is due to inflammation. (4) Chronic lower back pain: Status: Chronic Code(s): M54.50 - Low back pain, unspecified; G89.29 - Other chronic pain Qualifiers: Back pain laterality: bilateral Sciatica presence: without sciatica Qualified Code(s): M54.50 - Low back pain, unspecified; G89.29 - Other chronic pain Plan: No radicular pain. CT is done of the lumbar spine done in August 2022 showed multilevel degenerative changes and changes in L3 and L4 secondary to vertebral osteomyelitis. Had a IR biopsy of the bone and no pathogen identified. There was some disc space narrowing and anterior spondylosis but no herniations and no central canal stenosis. Had an Epiudural with Dr. Russo that didn't help much. 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 He has been seen by Dr. Tubbs who referred him to Dr. Escalante for surgery but, he saw Dr. Foster on 10/21/22 who recommends he proceed with surgery.......unfortunately before the surgery could be arranged he developed septic arthritis of the R hip and C. DIFF and needed 6 weeks of IV antibiotics. (6) PFO (patent foramen ovale): Status: Acute Code(s): Q21.12 - Patent foramen ovale (7) Monilial intertrigo: Status: Acute Code(s): B37.2 - Candidiasis of skin and nail Plan: Perirectal.......treated with Calmoseptine and Diflucan weekly X 4. Likely due to moisture and irritation from C. Diff/diarrhea. Much improved at DC and no longer painful. (8) Presence of IVC filter: Status: Acute Code(s): Z95.828 - Presence of other vascular implants and grafts Plan: Had DVT at the time he had a SAH and could not be anticoagulated so Dr. Donohue placed a IVC filter. After the heart surgery he can contact Dr. Donohue to remove. (9) Iron deficiency: Status: Chronic Code(s): E61.1 - Iron deficiency Plan: Does no absorb PO iron, even when given with ascorbic acid. He has received intravenous iron several times since he came to acute rehab initially following multiple embolic strokes. (10) Heme positive stool: Status: Chronic Code(s): R19.5 - Other fecal abnormalities Plan: Due to hemorrhoids. Has been scoped in the past 6 months. (11) Stroke/cerebrovascular accident: Status: Inactive Code(s): I63.9 - Cerebral infarction, unspecified Qualifiers: CVA mechanism: embolism Precerebral and cerebral artery: middle cerebral artery Laterality of affected vessel: right Qualified Code(s): I63.411 - Cerebral infarction due to embolism of right middle cerebral artery Plan: Due to DVT of the RLE following a vascular stent and the PFO. Multiple BL embolic strokes. (12) Whipple's disease: Status: Suspected Code(s): K90.81 - Whipple's disease (13) GERD (gastroesophageal reflux disease): Status: Acute Code(s): K21.9 - Gastro-esophageal reflux disease without esophagitis Qualifiers: Esophagitis presence: without esophagitis Qualified Code(s): K21.9 - Gastro-esophageal reflux disease without esophagitis (14) Hypertension: Status: Chronic Code(s): I10 - Essential (primary) hypertension Qualifiers: Hypertension type: primary hypertension Qualified Code(s): I10 - Essential (primary) hypertension (15) Presence of arterial stent: Status: Acute Code(s): Z95.828 - Presence of other vascular implants and grafts (16) Peripheral vascular disease: Status: Acute Code(s): I73.9 - Peripheral vascular disease, unspecified (17) Obesity: Status: Acute Code(s): E66.9 - Obesity, unspecified (18) Internal and external bleeding hemorrhoids: Status: Acute Code(s): K64.4 - Residual hemorrhoidal skin tags; K64.8 - Other hemorrhoids (19) Acute renal failure: Status: Resolved Code(s): N17.9 - Acute kidney failure, unspecified Qualifiers: Acute renal failure type: unspecified Qualified Code(s): N17.9 - Acute kidney failure, unspecified Plan: Due to septic shock and IV contrast. Had 3 dialysis sessions total. (20) Clostridium difficile enterocolitis: Status: Resolved Code(s): A04.72 - Enterocolitis due to Clostridium difficile, not specified as recurrent Plan 1. DC home with OP therapy at [facility]. 2. Follow up with Dr. Tubbs, Dr. Russo, Dr. Morgan (ID), Jhonny Geller NP, cardiothoracic surgery (he has seen Dr. Foster already on 10/21/22.) 3. Weight loss advised in preparation for surgery. 4. Dr. Russo's office has sent a RX for Buprenorphine to the pharmacy for Al and will see him next week. I gave him a RX for Oxycodone for Breakthrough pain. Medications at Discharge Home Medications aluminum-mag hydroxide-simethicone 400 mg-400 mg-40 mg/5 mL oral susp (Mag-Al Plus Extra Strength) 15 ml PO Q6H PRN PRN HEARTBURN OR INDIGESTION #1 mL 09/02/22 ascorbic acid (vitamin C) 500 mg tablet 1,000 mg PO 1200 supplement 09/15/22 apixaban 5 mg tablet (Eliquis) 5 mg PO BID Check with primary doctor #60 tabs 12/14/22 baclofen 10 mg tablet 5 mg (1/2 x 10 mg) PO TID MUSCLE RELAXER #45 tabs 12/14/22 clopidogrel 75 mg tablet (Plavix) 75 mg PO DAILY Check with primary doctor #30 tabs 12/14/22 doxazosin 2 mg tablet (Cardura) 2 mg PO QHS heart #30 tabs 12/14/22 doxycycline monohydrate 100 mg capsule 100 mg PO BID #60 caps 12/14/22 fenofibrate nanocrystallized 48 mg tablet 48 mg PO DAILYCM Check with primary doctor #30 tabs 12/14/22 ferrous sulfate 325 mg (65 mg iron) tablet (FeroSul) 325 mg PO DAILY@1200 supplement #30 tabs 12/14/22 fluconazole 150 mg tablet 150 mg PO Q7D #2 tabs 12/14/22 gabapentin 300 mg capsule 300 mg PO TID #90 caps 12/14/22 lisinopril 10 mg tablet 10 mg PO BID #60 tabs 12/14/22 oxycodone 10 mg tablet 10 mg PO Q6H PRN pain 7 days #28 tabs 12/14/22 oxycodone 5 mg tablet 10 mg (2 x 5 mg) PO Q6H PRN PRN Pain Score 4-10 7 days #28 tabs 12/14/22 pantoprazole 40 mg tablet,delayed release 40 mg PO BID #80 tabs 12/14/22 potassium chloride 20 mEq tablet,extended release(part/cryst) (Klor-Con M) 20 meq PO DAILYCM SUPPLEMENT #30 tabs 12/14/22 sennosides 8.6 mg-docusate sodium 50 mg tablet (Stool Softener-Stimulant Laxative) 2 tab PO BID #120 tabs 12/14/22 trazodone 100 mg tablet 100 mg PO QHS ANTIDEPRESSANT #30 tabs 12/14/22 venlafaxine 150 mg capsule,extended release 24 hr 150 mg PO DAILY DEPRESSION #30 caps 12/14/22 Hospital Course Operations None Procedures - (Wash out of the R hip by Dr. Hemphill and a IR aspiration of fluid from the R hip prior to wash out. ) Summary of Care Provided Minutes Spent on Discharge: 60 Hospital Course: PHILIP DU, is a 57 YO male well known to me from recent admission to acute rehab after multiple embolic strokes due to a patent foramen ovale and DVT of the RLE following a vascular stent for PVD at [facility]. 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 He received 12 weeks of IV antibiotics. No organisms were ever cultured during any of his admissions. He was discharged from acute rehab on 10/09/2022. He was seen in the emergency department at [facility] on 11/03/2022 for intractable right hip pain and severe diarrhea. He was on Bactrim from Dr. Morgan. He was ultimately diagnosed with a septic right hip and C. Diff enterocolitis. He was started on PO Vanco for C. difficile and IV vancomycin and Zosyn for septic arthritis. On 11/05/2022 he had an irrigation and debridement of the right hip done by Dr. Hemphill. Cultures of the joint fluid had no growth. Whipple PCR was negative. He was seen by ID while in the hospital. Due to severe diarrhea, IV contrast, a Vanco trough of 50 and infection he experienced nonoliguric ARF and was seen by Nephrology. The creatinine peaked at 7.34 on 823 and the patient experienced symptoms of uremia. Dr. Escalona inserted a temporary dialysis catheter and he was dialyzed. He received dialysis on 11/11, 11/12 and 11/13. Serum creatinine came down to 3.39 and he continued to have good urine output. He did not need any additional dialysis and the temporary dialysis catheter was removed prior to transfer to acute rehab. Al was transferred to the acute rehab unit at [facility] on 12/18/2022 for 3 hours of therapy daily to restore function/independence at or near his prior level of function and to finish the prescribed tx with IV antibiotics for septic arthritis. Al's time on rehab was uneventful for the most part. Diarrhea resolved and his creatinine came down to 0.93 at discharge from rehab. Hypernatremia resolved. Hemoglobin has been stable but, not improving. He was given 2 doses of intravenous iron and at the time of discharge his hemoglobin was 7.5, up from 7.1 on 12/08/2022. On 12/10/2022 he complained of left hip pain and an x-ray was obtained and showed the femoral head to have a normal contour with no dislocation of the hips, no fractures and no evidence of any bony destruction. CBC on that date showed a normal white blood cell count of 6.8 with 65% neutrophils and no immature granulocytes. Hemoglobin was 7.5 and platelets were within normal limits. The ESR was 32 which is the lowest it has ever been since he was initially admitted to acute rehab in July 2022. The CRP was 45.7 which is down from 133 on 11/03/2022. On PE he had no redness, increased warmth to touch or swelling of the R hip area and R groin. Albaro was discharged home on 12/14/22 and will have OP therapy at [facility]. Appts were made for him to follow up with Dr. Tubbs, Jhonny Geller NP and Dr. Russo. He will need to talk with Financial at Dr. Morgan's office before an appt will be scheduled for him.......we were told they no longer take his insurance? He will need to follow up with cardiothoracic surgery to arrange for AV replacement and PFO closure. It is unclear to me whether he will continue to follow up with Dr. Foster or he will see the surgeon Dr. Tubbs referred him to, Dr. Escalante. I suspect that Su[facility] are overwhelmed with everything that has transpired since the beginning of July and they will need a lot of guidance. Physical Exam Const alert, oriented x3, no apparent distress and well nourished General Appearance: cooperative Orientation / Consciousness: Negative for confused HEENT normocephalic, head/scalp atraumatic and moist oral mucous membranes HEENT Narrative: Decreased hearing in the left ear. Eyes PERRL and EOMs intact bilaterally Neck supple and no carotid bruits General: trachea midline; Negative for lymphadenopathy Resp clear to auscultation bilaterally Resp Narrative: Diminished BS' throughout both lungs. No pursed lip breathing. Effort and Inspection: Negative for tachypneic, respiratory distress or labored Cardio regular rate, regular rhythm, no rub and no gallops Cardio Narrative: He has a soft systolic ejection murmur at the second right intercostal space with a diastolic murmur also heard in the second right intercostal space. Heart sounds are somewhat distant and this may be on the basis of body habitus. There was no ectopy. GI normal to inspection, nondistended, normoactive bowel sounds, soft to palpation and non-tender GI Narrative: No guarding with palpation Extremity no calf tenderness General Extremity: Negative for clubbing, cyanosis or edema Skin General Skin Exam: no breakdown Rashes: no rashes Neuro CN's II-XII intact bilaterally and no focal motor deficits Neuro Narrative: Patient droop has resolved. Ambulates with a front wheel walker but sometimes ambulates short distances with no assistive device. He has a normal tandem gait. Psych affect normal Appearance: appropriate Activity / Motor Behavior: Negative for restless Weight / BMI Weight Weight: 295 lb 6.711 oz Body Mass Index (BMI) 36.9 ABG / Lab / Microbiology Data 12/10/22 11:50 12/08/22 05:35 Microbiology: Microbiology 11/17/22 23:55 Urine, Clean Catch Urine Culture - Final Culture exhibits no growth. D/C Instructions Discharge Diet: - (Low salt) May resume sexual activity in: No Restrictions Weight Bearing Status: Full weight bearing Call your doctor if you observe: Fever of 101 or Higher, Inability to urinate, Shortness of breath, Dizziness, Fainting spells, Chest pain, Increased palpitations (irregular heartbeat), Calf discomfort, Uncontrolled pain and - (night sweats, diarrhea, STROKE symptoms: facial droop, slurred speech, inability to get words out, weakness on 1 side of the body and not the other, numbness on 1 side of the body and not the other, inability to maintain your balance sitting or standing, vertigo. ) Pending Tests Upon Discharge: none Please Follow Up With: Padmini Russo MD When: You will also need to follow up with Dr. Morgan and Dr. Christensen and the [facility] (I suggest Dr. Pablo or Dr. Hal Mcgee, they are both back surgeons). You will need to have discs with the MRI and CT scans of your back to take to the appt. You can request these from radiology. Meaningful Use Info Meaningful Use Diagnoses (Choose all that apply): None applicable Discharge Plan Admission Admit Date/Time: 11/17/22 18:20 Primary Reason for Your Visit: Debility due to septic R hip Attending Provider: Sylvie Plata Primary Care Provider: Eleazar Hernandez Consulting Providers: Franc Donohue Instructions Additional Instructions / Restrictions: 1. The XRAY of the hip looked good. Minimal arthritis, no fracture and normal appearing bone BUT, if the pain continues to worsen you may need an MRI of the hip because it is better when looking for fluid in the joint and signs of infection. The lab we did looks better than at anytime during your stays on rehab. I am going to send you home on an antibiotic called Doxycycline........it is a form of Tetracycline. Dr. Morgan's office has told us they do not take your insurance but, they said someone from the financial office would get in touch with you. I know that with all the extended hospital stays and not working your finances are probably very limited now. IF you can not see your current PCP there [facility]. They take everyone......Medicaid and all insurances. Two of my former colleagues work there and they are both nurse practitioners. I have worked with both of them and trust them completely to make good decisions. Reina Macdonald and Jhonny Geller. If you are not able to follow up with Dr. Morgan maybe we can have you follow up with Dr. Riojas. 2. I do not know what bacteria is causing all these infections......I do not think anyone else does either. I hope there are no more going forward. I want you to see Dr. Christensen and get working on an appt for the aortic valve replacement and the closure of the PFO so that you can move on with your life. Dr. Donohue can remove the IVC filter after the heart surgery. 3. I want you to stop taking Tylenol. If you are having fevers we need to know about it.........and I do not want the Tylenol suppressing any fevers. Also want to know about any shaking chills or night sweats. 4. If you or [place] have any questions after you leave rehab please do not hesitate to call me. CELL: [phone] OFFICE: [phone] Crossing my fingers and toes and saying a prayer for you.......no more infections and it is smooth sailing from here on out. Discharge Orders/Prescriptions Prescriptions: New pantoprazole 40 mg Tablet,Delayed Release (Dr/Ec) 40 mg PO BID Qty: 80 0RF fluconazole 150 mg Tablet 150 mg PO Q7D Qty: 2 0RF Rx Instructions: Take 1 on 12/15 and the other 12/22/22 sennosides-docusate sodium [Stool Softener-Stimulant Laxat] 8.6-50 mg Tablet 2 tab PO BID Qty: 120 0RF lisinopril 10 mg Tablet 10 mg PO BID Qty: 60 0RF gabapentin 300 mg capsule 300 mg PO TID Qty: 90 0RF doxycycline monohydrate 100 mg capsule 100 mg PO BID Qty: 60 0RF oxycodone 5 mg Tablet 10 mg PO Q6H PRN PRN (Reason: Pain Score 4-10) 7 Days Qty: 28 0RF Continued alum-mag hydroxide-simeth [Mag-Al Plus Extra Strength] 400-400-40 mg/5 mL Suspension 15 ml PO Q6H PRN PRN (Reason: HEARTBURN OR INDIGESTION) Qty: 1 0RF ascorbic acid (vitamin C) 500 mg tablet 1,000 mg PO 1200 venlafaxine 150 mg Capsule,Extended Release 24hr 150 mg PO DAILY Qty: 30 0RF clopidogrel [Plavix] 75 mg Tablet 75 mg PO DAILY Qty: 30 0RF potassium chloride [Klor-Con M20] 20 mEq Tablet,Er Particles/Crystals 20 meq PO DAILYCM Qty: 30 0RF trazodone 100 mg Tablet 100 mg PO QHS Qty: 30 0RF baclofen 10 mg Tablet 5 mg PO TID Qty: 45 0RF ferrous sulfate [FeroSul] 325 mg (65 mg iron) tablet 325 mg PO DAILY@1200 Qty: 30 0RF Rx Instructions: Take this medication with the Vitamin C and with a meal to improve absorption doxazosin [Cardura] 2 mg tablet 2 mg PO QHS Qty: 30 0RF fenofibrate nanocrystallized 48 mg tablet 48 mg PO DAILYCM Qty: 30 0RF oxycodone 10 mg tablet 10 mg PO Q6H PRN (Reason: pain) 7 Days Qty: 28 0RF Eliquis 5 mg Tablet 5 mg PO BID Qty: 60 0RF Discontinued polyethylene glycol 3350 17 g PO/SL QHS gabapentin 100 mg Capsule 200 mg PO TIDCM Qty: 90 0RF losartan 100 mg Tablet 100 mg PO DAILY Qty: 30 0RF sennosides-docusate sodium [Stool Softener-Stimulant Laxat] 8.6-50 mg Tablet 2 tab PO BID Qty: 120 0RF pantoprazole 40 mg tablet,delayed release (DR/EC) 40 mg PO DAILY Qty: 30 0RF acetaminophen 500 mg Tablet 1,000 mg PO Q8 Qty: 0 0RF hkfzpmtsid-yjpiqcfkmcplb-tnva 50-325-40 mg Tablet 1 tab PO Q6H PRN PRN (Reason: Headache) Qty: 0 0RF daptomycin 500 mg Recon Soln 900 mg IV Q48H 20 Days Qty: 1 0RF Rx Instructions: Discontinue on 12/07/2022-total of 30 days treatment from 11/05/2022 vancomycin [Firvanq] 25 mg/mL Recon Soln 125 mg PO Q6 20 Days Qty: 400 0RF Rx Instructions: Discontinue after IV antibiotics have finished ceftriaxone 2 gram recon soln 2 g IV Q24H 20 Days Rx Instructions: Discontinue on 12/07/2022 menthol-zinc oxide [Calmoseptine] 0.44-20.6 % Ointment 1 applic topical TID Protocol: *Topical Application Instructions APPLICATION INSTRUCTIONS: apply to buttocks/ coccyx, scrotum and groin. Rx Instructions: BILAT BUTTOCKS, GROIN, SCROTUM amlodipine 10 mg tablet 2.5 mg PO DAILY Patient Comments: 10 MG ORALLY DAILY Referrals / Follow Up: Jhonny Geller [Other] Padmini Russo MD [Med Staff - Active Staff] - 12/16/22 2:00 pm (1 week after DC) Leona Tubbs MD [Med Staff - Active Staff] - 12/24/22 1:00 pm Disposition Disposition (needs filled in before D/C Order can be placed): Home, Self Care Charges/Coding Visit Charges Inpatient E&M: 15099 Disch Hosp >30min
[2022-12-14] MEDS: Mag Hydrox/Al Hydrox/Simeth 30 ML UDC 15 ML PO (12:20)
[2022-12-14 14:45] VITALS: BP 118/56; PULSE 79; RESP 17; TEMP 36.4; O2SAT 95
--- NOTE | 2022-12-14 14:45 | NURSING ---
discharge instructions provided and patient and verbalized understanding. aware the vesta fernandez appt will be made by staff and the office has been left a message.
== END 2022-12-14 14:15 | disposition home or self-care (01) | DRG 549 ==
PROVIDERS: Admitting Provider Internal Medicine; PCP Family Medicine; Visit Provider Internal Medicine
DX: M00.9 Pyogenic arthritis, unspecified (principal); N17.9 Acute kidney failure, unspecified; A04.72 Enterocolitis due to Clostridium difficile, not specified as recurrent; M46.20 Osteomyelitis of vertebra, site unspecified; E87.0 Hyperosmolality and hypernatremia; I82.4Z1 Acute embolism and thrombosis of unspecified deep veins of right distal lower extremity; Q21.12 Patent foramen ovale; E88.09 Other disorders of plasma-protein metabolism, not elsewhere classified; D89.0 Polyclonal hypergammaglobulinemia; J44.9 Chronic obstructive pulmonary disease, unspecified; I73.9 Peripheral vascular disease, unspecified; M00.851 Arthritis due to other bacteria, right hip; I35.1 Nonrheumatic aortic (valve) insufficiency; I10 Essential (primary) hypertension; D50.9 Iron deficiency anemia, unspecified; K21.9 Gastro-esophageal reflux disease without esophagitis; E66.9 Obesity, unspecified; G89.29 Other chronic pain; Z87.891 Personal history of nicotine dependence; Z79.01 Long term (current) use of anticoagulants; B37.2 Candidiasis of skin and nail; Z79.02 Long term (current) use of antithrombotics/antiplatelets; Z79.899 Other long term (current) drug therapy; R73.03 Prediabetes; Z68.37 Body mass index [BMI] 37.0-37.9, adult
CPT/HCPCS: 36415; 73502; 80048; 80053; 81001; 82040; 82728; 83540; 83550; 83735; 84100; 85014; 85018; 85025; 85027; 85652; 86140; 87086; 92507; 92523; 93005; 94002; 94003; 94640; 94668; 97110; 97112; 97116; 97129; 97130; 97162; 97166; 97530; 97533; 97535; 97802; J0878; J2997; J7050; A4216; J0696; J2916; J3490

== ENCOUNTER → 2023-08-04 | Outpatient (CLI) | payer OTHER, SELFPAY ==
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
--- NOTE | 2023-08-04 14:09 | PCM.CR.ITP ---
Diagnosis General Information Admitting Diagnosis: S/P AVR Secondary Diagnosis: Right sided CVA, Obesity, severe aortic insufficiency resolved Personal Learning Style:: Audio/Visual and Written Barriers to Learning: Vision Impairment Stage of change r/t lifestyle modifications:: Action Gave educational material for:: Treating Heart Disease, How The Heart Works, What it means to have Heart Disease, How Coronary Artery Disease is Diagnosed, Heart Procedures, What Heart Medications Do, Risk Factors & Modifications, Living an Active Life, Nutrition, Emotions & Heart Disease, Stress Management & Relaxation and Sleep Disorders & Heart Disease Education/Goals Individual Counseling: Initial Assessment: High Blood Pressure and Overweight/Obesity Cardiac Rehabilitation Goals Personal Goals: Initial Assessment: Improve energy level, Participate in home exercise program, Get back to work, or to resume activities faster, Improve knowledge of cardiac disease and Improve muscle strength and endurance Scale for measuring improvement of personal goals Diagnosis & Disease Process Outcomes/Goals: Pt IDs own risk factors & lifestyle modifications by Session 10, Verbalizes symptoms of angina & response by session 3. and Pt independently manages Plan/Interventions: Assist Pt to ID & engage in lifestyle modification to reduce CVD risk, Instruct on individual risk factors, Review symptoms of angina & emergency actions and Review secondary diagnosis & identify educational needs. Safety Referral to Physical Therapy: No Referral to [facility] Case Management: No Fall Risk Assessed:: Yes Assistive Devices:: None Exercise - Initial Assessment Visit Date of Eval: 08/04/23 Session #:: 0 Mets: Pre-: >5 METS for 30 minutes by discharge Physician Prescribed Exercise Modalities: Treadmill, Airdyne and NuStep Frequency: 3x/week for 12 weeks [36 sessions] Intensity: 60-80% of age predicted maximum heart rate reserve Duration: 30 - 45 minutes Current METSs:: 3.0 Target Heart Rate:: 121-136 Resting Blood Pressure: 110/64 EKG Type: NSR Current Physical Activity or Exercising minutes: > 1 hour walking daily Outcomes & Goals Goals:: Verbalizes understanding of THR, RPE & goal METS by session 6, Documents in home exercise log/reports 30 min aerobic 5 day/wk by DC and Demonstrates accurate pulse taking by DC Intervention & Plan Exercise Program Goals: Instruct on personal THR & RPE, Instruct on MET level & personal MET goal, Show patient to take own pulse /validate performance until accurate and Instruct on home exercise Physical Activity Home Exercise Physical Activity - Home Exercise: Safe Exercise, Warm-up, Self-monitoring, Cool-Down, Home Exercise > 30 min Daily and Sitting Time <3 hours/daily Outcomes & Goals Outcomes/Goals: Demonstrates correct Warm-up/exercise Cool-Down (S3) if = 2.5 METs, Verbalizes symptoms of exercise intolerance by Session 3 (S3) and Demonstrate safe equipment use (S3) & follows exercise prescrition (6) Intervention & Plan Plan/Intervention: Instruct warm-up & cool-down if exercising at > 2 METs, Instruct on symptoms of exercise intolerance & actions to take, Instruct & monitor on saf and Assess intial functional capacity & safety risk Nutrition - Initial Assessment Program Goals Nutrition Program Goals Patient has diagnosis of Hyperlipidemia (ICD E78)?: Yes Visit Date of Eval: 08/04/23 Session #:: 0 Cholesterol/Lipids (Other Core Measures) Determine presence & major risk factors that modify LDL goal: Cigarette smoking (Former smoker quit > 7 years ago.), Hypertension or hypertensive medication and Age men > 45 years; women >/= 55 years Outcomes/Goals: Pt IDs own risk factors & lifestyle modifications by Session 10, Verbalizes symptoms of angina & response by session 3. and Pt independently manages Intervention/Plan: Instruct on personal lipid levels & lipid goals/NCEP guidelines and Instruct on cholesterol Referral to dietitian:: Yes Diabetes (Other Core Measures) Diabetes Type: Not Applicable Weight Mgt (Other Care) Not Applicable: No Height: 6 ft 2 in Weight:: 293 lb BMI: 37.6 Diagnosis Overweight/Obesity BMI> 30% ICD-10 E66: Yes Diagnosis High BMI/Morbid Obesity BMI> 35% ICD-10 Z68: Yes Outcomes/Goals: Pt sets, maintains & shows weight loss goal & trend during rehab Intervention/Plan: Instruct on ideal BMI & set weight loss goal w/patient, Assist pt to ID & incorporate diet changes for weight loss by S9 and Refer to Structured Weight Loss program as appropriate Healthy Eating Habits Will attend diet classes:: Yes Outcomes/Goals:: Consume diet rich in vegs,fruits,whole grain/high fiber,fish,lean meat and Limit sat/trans fats,cholesterol & added salts & sugars Intervention/Plan:: Assess current eating habits Education Gave educational materials for:: Healthy eating Core - Initial Assessment Visit Date of Eval: 08/04/23 Session #:: 0 Medication Compliance Preventative Medication(s):: Aspirin, Statin/lipid, Beta jose and Warfarin/Coumadin H/O mental health issues: depression, anxiety, or addiction?: Yes Doesn?t believe in the benefits of treatment?: No Believes medications are unnecessary or harmful?: No Has a concern about medication side effects?: No Expresses concern over the cost of medications?: No Outcomes/Goals: Verbalizes medications,desired effect & common side effects @ DC, Pt self-reports following medication regimen and Keeps card in wallet w/medications listed by DC Interventions/plans: Instruct on medication effects & side effects, Review medication list w/patient every two weeks and Instruct importance of taking meds as ordered & assist problem solving Tobacco Use Tobacco Use: Non-smoker (Former smoker quit > 7 years ago 1.0 PPD.) How long ago did you quit using tobacco products?: Greater than or equal to 6 months ago Hypertension Hypertension Diagnosis:: Hypertension ICD-10 I10 [place] [employer] Hypertension Guidelines Peak Exercise Blood Pressure:: 110/64 Outcomes/Goals: Able to verbalize/achieve optimal blood pressure <130/80 and Incorporates diet changes & exercise for blood pressure control by DC Interventions/plan: Instruct on optimal blood pressure, hypertension & medications and Instruct on effects of sodium, alcohol, stress, exercise &hypertension Tobacco Cessation Referral Smoking Cessation Referral:: No Individual Education/Counseling:: No Education Schedule Given:: Yes Psychosocial - Initial Assess VIsit Date of Eval: 08/04/23 Session #:: 0 Not Applicable: No History of previous Mental disease:: Yes History of Emotional Disorders: Anxious and Depression Target Goals Target Goals Psychosocial Test Tool Used:: [employer] QOL Cardiac and PHQ-9 Questionnaire phq-9 Severity Total Score:: 3 Referral to Behavioral Health PS - Interventions: Yes: Attend Stress Management Classes and No: Referral to Behavioral Health if PHQ-9 score >9:, No: Referral to [facility] and No: Referral to Physician if PHQ-9 if score is 5-9: Outcomes/Goals: See list Psychosocial Outcomes/Goals:: ID's personal stressors & 2 strategies to manage stress by discharge Intervention/Plan: See List Interventions/Plan:: Assess stressors,coping strategies & signs of derpression on admission, Instruct/assist pt to develop coping & personal stress Mgt strategies, Instruct patient to recognize signs & symptoms of depression and Instruct patient to recog Patient Health Questionnaire PHQ-9 Screening Initial Assessment: 1. Little interest or pleasure in doing things: Not at all 2. Feeling down, depressed, or hopeless: Not at all 3. Trouble falling or staying asleep, or sleeping too much: Several days 4. Feeling tired or having little energy: Several days 5. Poor appetite or overeating: Not at all 6. Feeling bad about yourself -- or that you are a failure or have let yourself or your family down: Not at all 7. Trouble concentrating on things, such as reading the newspaper or watching television: Several days 8. Moving or speaking so slowly that other people could have noticed. Or the opposite - being so fidgety or restless that you have been moving around a lot more than usual: Not at all 9. Thoughts that you would be better off , or of hurting yourself in some way: Not at all How difficult have these problems made it for you to do your work, take care of things at home, or get along with other people?: Somewhat difficult Total Score: 3 SOLO-Q SV Test Statements CAD is a disease of the arteries in the heart: False Examples of risk factors for heart disease: True Angina is chest pain or discomfort: I Don't Know The benefits of resistance training include: True Eating more meat and dairy products: False Anti-platelet medications such as aspirin are important: True The only effective way to manage stress: False An exercise warm-up slowly increases heart rate: True Prepared, processed foods usually have high sodium: True Depression is common after a heart attack: I Don't Know The statin medications lower cholesterol: I Don't Know To control blood pressure, lower the amount of sodium: True If someone gets chest discomfort during walking: False Transfats are partially hydrogenated vegetable oils: True Sleep apnea that is not treated increases the risk: I Don't Know To control cholesterol, one should become a vegetarian: False Someone knows if he/she is exercising at the right level: True Diabetes cannot be prevented with exercise & health eating: False Stress is a large risk for heart attack: True A diet that can help lower blood pressure is rich in: True Total Score Total Correct Responses: 16 Self-Efficacy 6-Item Scale Initial Assessment: We would like to know how confident you are in doing certain activities. Please select your confidence level for: Fatigue Select Number: 8 Physical Discomfort or Pain Select Number: 5 Emotional Distress Select Number: 10 Other Symptoms or Health Problems Select Number: 2 Different Tasks and Activities Select Number: 7 Medication Select Number: 8 Total Score:: 6 Nutrition Survey Nutrition Survey Instructions Scoring Instructions Nutrition Survey Initial: Have you lost >10 lbs over the past 2 months without trying?: No Are you following a special diet at home for diabetes, low fat, or low salt?: Yes Are you interested in meeting with a dietitian for help understanding your diet?: No Do you eat less than 3 meals a day?: No Do you eat fatty meats (rose, sausage, ribs, etc), fried foods, desserts, large amounts of salad dressings, margarine, butter, or cheese most days?: No Do you have food allergies? [Enter types in comment field]: No Do you eat in restaurants more than 3 times a week?: No Do you season food with salt, seasoning salt, or garlic salt?: No Do you used canned, boxed, frozen meals, or soups, seasoning packets?: No Total Score:: 1 Exercise - Final/Discharge Physician Prescribed Exercise Modalities: Treadmill, Airdyne and NuStep Frequency: 3x/week for 12 weeks [36 sessions] Intensity: 60-80% of age predicted maximum heart rate reserve Current METSs:: 3.0 Target Heart Rate:: 121-136 Nutrition - 30-Day Assessment Weight Mgt (Other Care) Height: 6 ft 2 in Weight:: 293 lb BMI: 37.6 Nutrition - 60-Day Assessment Weight Mgt (Other Care) Height: 6 ft 2 in Weight:: 293 lb BMI: 37.6 Core - 30-Day Assessment Visit Session #:: 0 Psychosocial - 30-Day Assess Target Goals Target Goals Referral to Behavioral Health PS - Interventions: Yes: Attend Stress Management Classes and No: Referral to Behavioral Health if PHQ-9 score >9:, No: Referral to [facility] and No: Referral to Physician if PHQ-9 if score is 5-9: Psychosocial - 60-Day Assess Target Goals Target Goals Referral to Behavioral Health PS - Interventions: Yes: Attend Stress Management Classes and No: Referral to Behavioral Health if PHQ-9 score >9:, No: Referral to [facility] and No: Referral to Physician if PHQ-9 if score is 5-9: Psychosocial - 90-Day Assess Target Goals Target Goals Referral to Behavioral Health PS - Interventions: Yes: Attend Stress Management Classes and No: Referral to Behavioral Health if PHQ-9 score >9:, No: Referral to [facility] and No: Referral to Physician if PHQ-9 if score is 5-9: Psychosocial - Final Assessmen Target Goals Target Goals Psychosocial Test phq-9 Severity Total Score:: 3 Referral to Behavioral Health PS - Interventions: Yes: Attend Stress Management Classes and No: Referral to Behavioral Health if PHQ-9 score >9:, No: Referral to [facility] and No: Referral to Physician if PHQ-9 if score is 5-9: Nutrition - 90-Day Assessment Weight Mgt (Other Care) Height: 6 ft 2 in Weight:: 293 lb BMI: 37.6 Nutrition - Final Assessment Program Goals Patient has diagnosis of Hyperlipidemia (ICD E78)?: Yes Weight Mgt (Other Care) Height: 6 ft 2 in Weight:: 293 lb BMI: 37.6
[2023-08-04 14:47] VITALS: BP 110/64; PULSE 64; RESP 16; O2SAT 95
[2023-08-04 15:29] VITALS: BP 110/64; BMI 37.6
[2023-08-04 15:30] VITALS: BMI 36.6
== END | disposition home or self-care (01) ==
PROVIDERS: PCP Family Medicine; Visit Provider Thoracic Surgery (Cardiothoracic Vascular Surgery)
DX: Z95.2 Presence of prosthetic heart valve (principal); I10 Essential (primary) hypertension; E66.9 Obesity, unspecified; Z68.36 Body mass index [BMI] 36.0-36.9, adult

== ENCOUNTER → 2023-08-23 | Outpatient (CLI) | payer OTHER, SELFPAY ==
[2023-08-04 15:29] VITALS: BMI 37.6
[2023-08-23 16:45] LABS: Absolute Lymphocyte Count 1.95 X10^3/uL (0.83-4.51); Absolute Neutrophil Count 8.5 X10^3/uL (2.0-7.7); Basophil# 0.07 X10^3/uL; Basophil% 0.6 % (0-1); Eosinophil# 0.14 X10^3/uL; Eosinophils% 1.2 % (0-5); Hematocrit 35.9 % (40-54); Lymphocyte # 1.95 X10^3/ul (0.83-4.51); Lymphocyte % 16.5 % (19-41); Mean Corp Hgb Conc 30.6 g/dL (32-36); Mean Corpuscular Hgb 25.9 pg (27.0-32.0); Mean Corpuscular Volume 84.5 fL (80-94); Mean Platelet Vol. 10.2 fl (6.2-12.0); Monocyte# 1.05 X10^3/uL; Monocyte% 8.9 % (0-10); NRBC Flagged by Analyzer 0 % (0-5); Neutrophil # 8.53 X10^3/uL (2.7-7.7); Neutrophil % 72.1 % (47-70); Platelet Count 398 K/mm3 (150-450); RBC Distribution Width CV 17.3 % (11.6-14.6); RBC Distribution Width SD 53.1 fl (35.1-43.9); Red Blood Count 4.25 M/mm3 (4.6-6.2); White Blood Count 11.8 K/mm3 (4.4-11.0)
[2023-08-23 16:58] LABS: International Normalized Ratio 1.9; Prothrombin Time (Protime)PT. 21.4 SECONDS (11.7-14.9)
[2023-08-23 17:05] LABS: Anion Gap 6 (5-15); BUN 34 mg/dL (7-18); BUN/Creat Ratio 29.8 RATIO (10-20); Calcium,Total 9.1 mg/dL (8.5-10.1); Chloride 103 mmol/L (98-107); Creatinine, Serum 1.14 mg/dL (0.70-1.30); EST Glomerular Filtration Rate 70 mL/min (>60); Est Glom Filt Rate - Afr Amer 85 mL/min (>60); Glucose 88 mg/dL (74-106); Potassium 4.8 mmol/L (3.5-5.1); Sodium Level 136 mmol/L (136-145)
[2023-08-23 17:09] LABS: BNP,B-Type NATRIURETIC PEPTIDE 71.6 pg/mL (0-100)
== END | disposition home or self-care (01) ==
LOC: LAB 14:50
PROVIDERS: PCP Family Medicine; Referring Provider Nurse Practitioner Gerontology; Visit Provider Nurse Practitioner Gerontology
DX: E61.1 Iron deficiency (principal); Z95.2 Presence of prosthetic heart valve; R06.09 Other forms of dyspnea
CPT/HCPCS: 36415; 80048; 83880; 85025; 85610

== ENCOUNTER → 2023-09-10 | Outpatient (CLI) | payer OTHER, SELFPAY ==
[2023-09-06 05:19] VITALS: BMI 38.7
[2023-09-10 10:40] LABS: International Normalized Ratio 3.5; Prothrombin Time (Protime)PT. 34.8 SECONDS (11.7-14.9)
== END | disposition home or self-care (01) ==
PROVIDERS: PCP Family Medicine; Referring Provider Internal Medicine Cardiovascular Disease; Visit Provider Internal Medicine Cardiovascular Disease
DX: Z79.01 Long term (current) use of anticoagulants (principal); Z95.2 Presence of prosthetic heart valve
CPT/HCPCS: 36415; 85610

== ENCOUNTER 2023-09-17 08:00 | Outpatient (RCR) | payer OTHER, SELFPAY ==
[2023-08-04 15:29] VITALS: BMI 37.6
--- NOTE | 2023-09-06 05:11 | PCM.CR.ITP ---
Exercise - Initial Assessment Physician Prescribed Exercise Modalities: Treadmill, Schwinn Airdyne AD-7 and SciFit Stepper Nutrition - Initial Assessment Weight Mgt (Other Care) Height: 6 ft 2 in Weight:: 301 lb 8 oz BMI: 38.7 Psychosocial - Initial Assess Target Goals Target Goals Referral to Behavioral Health PS - Interventions: Yes: Attend Stress Management Classes and No: Referral to Behavioral Health if PHQ-9 score >9:, No: Referral to [facility] and No: Referral to Physician if PHQ-9 if score is 5-9: Patient Health Questionnaire PHQ-9 Screening 30-Day Re-eval Assessment: 1. Little interest or pleasure in doing things: Not at all 2. Feeling down, depressed, or hopeless: Not at all 3. Trouble falling or staying asleep, or sleeping too much: Several days 4. Feeling tired or having little energy: Not at all 5. Poor appetite or overeating: Not at all 6. Feeling bad about yourself -- or that you are a failure or have let yourself or your family down: Not at all 7. Trouble concentrating on things, such as reading the newspaper or watching television: Several days 8. Moving or speaking so slowly that other people could have noticed. Or the opposite - being so fidgety or restless that you have been moving around a lot more than usual: Not at all 9. Thoughts that you would be better off , or of hurting yourself in some way: Not at all How difficult have these problems made it for you to do your work, take care of things at home, or get along with other people?: Not difficult at all Total Score: 2 Self-Efficacy 6-Item Scale 30-Day Re-eval Assessment: We would like to know how confident you are in doing certain activities. Please select your confidence level for: Fatigue Select Number: 8 Physical Discomfort or Pain Select Number: 7 Emotional Distress Select Number: 10 Other Symptoms or Health Problems Select Number: 5 Different Tasks and Activities Select Number: 8 Medication Select Number: 8 Total Score:: 7 Nutrition Survey Nutrition Survey Instructions Scoring Instructions Exercise - 30-day Assessment Visit Date of Eval: 09/06/23 Session #:: 6 Physician Prescribed Exercise Modalities: Treadmill, Schwinn Airdyne AD-7 and SciFit Stepper Frequency: 3x/week for 12 weeks [36 sessions] Intensity: 60-80% of age predicted maximum heart rate reserve Duration: 30 - 45 minutes Current METSs:: 5.0 Target Heart Rate:: 121-136 Current RPE:: 10-13 Maximum Excercise HR:: 82 Resting Blood Pressure: 124/66 Maximum Exercise Blood Pressure: 130/56 EKG Type: NSR w/rare PACs. Current Physical Activity or Exercising minutes: 42:04 Outcomes & Goals Goals:: Verbalizes understanding of THR, RPE & goal METS by session 6, Documents in home exercise log/reports 30 min aerobic 5 day/wk by DC and Demonstrates accurate pulse taking by DC Intervention & Plan Exercise Program Goals: Instruct on personal THR & RPE, Instruct on MET level & personal MET goal, Show patient to take own pulse /validate performance until accurate and Instruct on home exercise 30-day Reassessments 30 day Reassessments:: Met Physical Activity Home Exercise Physical Activity - Home Exercise: Safe Exercise, Warm-up, Self-monitoring, Cool-Down, Home Exercise > 30 min Daily and Sitting Time <3 hours/daily Outcomes & Goals Outcomes/Goals: Demonstrates correct Warm-up/exercise Cool-Down (S3) if = 2.5 METs, Verbalizes symptoms of exercise intolerance by Session 3 (S3) and Demonstrate safe equipment use (S3) & follows exercise prescrition (6) Intervention & Plan Plan/Intervention: Instruct warm-up & cool-down if exercising at > 2 METs, Instruct on symptoms of exercise intolerance & actions to take, Instruct & monitor on saf and Assess intial functional capacity & safety risk 30-day Reassessments 30 day Reassessments:: Met Exercise - 60-day Assessment Physician Prescribed Exercise Modalities: Treadmill, Schwinn Airdyne AD-7 and SciFit Stepper Exercise - 90-day Assessment Physician Prescribed Exercise Modalities: Treadmill, Schwinn Airdyne AD-7 and SciFit Stepper Exercise - Final/Discharge Physician Prescribed Exercise Modalities: Treadmill, Schwinn Airdyne AD-7 and SciFit Stepper Nutrition - 30-Day Assessment Program Goals Nutrition Program Goals Patient has diagnosis of Hyperlipidemia (ICD E78)?: Yes Visit Date of Eval: 09/06/23 Session #:: 6 Cholesterol/Lipids (Other Core Measures) Triglycerides (mg/dL): 0 (No lipids available) Determine presence & major risk factors that modify LDL goal: Hypertension or hypertensive medication and Age men > 45 years; women >/= 55 years Outcomes/Goals: Pt IDs own risk factors & lifestyle modifications by Session 10, Verbalizes symptoms of angina & response by session 3. and Pt independently manages Intervention/Plan: Instruct on personal lipid levels & lipid goals/NCEP guidelines and Instruct on cholesterol Referral to dietitian:: Yes 30-day Reassessments:: Progressing Diabetes (Other Core Measures) Diabetes Type: Not Applicable Weight Mgt (Other Care) Not Applicable: No Height: 6 ft 2 in Weight:: 301 lb 8 oz BMI: 38.7 Diagnosis Overweight/Obesity BMI> 30% ICD-10 E66: Yes Diagnosis High BMI/Morbid Obesity BMI> 35% ICD-10 Z68: Yes Outcomes/Goals: Pt sets, maintains & shows weight loss goal & trend during rehab Intervention/Plan: Instruct on ideal BMI & set weight loss goal w/patient, Assist pt to ID & incorporate diet changes for weight loss by S9, Refer to Structured Weight Loss program as appropriate and Encourage goal of using 250-300dcal per session for weight loss 30 day Reassessments:: Progressing Healthy Eating Habits Will attend diet classes:: Yes Outcomes/Goals:: Consume diet rich in vegs,fruits,whole grain/high fiber,fish,lean meat and Limit sat/trans fats,cholesterol & added salts & sugars Intervention/Plan:: Assess current eating habits 30-day Reassessments:: Progressing Education Gave educational materials for:: Healthy eating Nutrition - 60-Day Assessment Weight Mgt (Other Care) Height: 6 ft 2 in Weight:: 301 lb 8 oz BMI: 38.7 Core - 30-Day Assessment Medication Compliance Preventative Medication(s):: Aspirin, Statin/lipid, Beta jose and Warfarin/Coumadin H/O mental health issues: depression, anxiety, or addiction?: No Doesn?t believe in the benefits of treatment?: No Believes medications are unnecessary or harmful?: No Has a concern about medication side effects?: No Expresses concern over the cost of medications?: No Outcomes/Goals: Verbalizes medications,desired effect & common side effects @ DC, Pt self-reports following medication regimen and Keeps card in wallet w/medications listed by DC Interventions/plans: Instruct on medication effects & side effects, Review medication list w/patient every two weeks and Instruct importance of taking meds as ordered & assist problem solving 30-day Reassessments:: Met Tobacco Use Tobacco Use: Non-smoker Hypertension Hypertension Diagnosis:: Hypertension ICD-10 I10 Resting Blood Pressure:: 124/66 [place] [employer] Hypertension Guidelines Peak Exercise Blood Pressure:: 130/56 Outcomes/Goals: Able to verbalize/achieve optimal blood pressure <130/80 and Incorporates diet changes & exercise for blood pressure control by DC Interventions/plan: Instruct on optimal blood pressure, hypertension & medications and Instruct on effects of sodium, alcohol, stress, exercise &hypertension Comments: controlled on medication 30 day Reassessments:: Met Tobacco Cessation Referral Smoking Cessation Referral:: No Individual Education/Counseling:: No Education Schedule Given:: Yes Psychosocial - 30-Day Assess VIsit Date of Eval: 09/06/23 Session #:: 6 Not Applicable: Yes History of previous Mental disease:: No Target Goals Target Goals Psychosocial Test Tool Used:: PHQ-9 Questionnaire phq-9 Severity Referral to Behavioral Health PS - Interventions: Yes: Attend Stress Management Classes and No: Referral to Behavioral Health if PHQ-9 score >9:, No: Referral to [facility] and No: Referral to Physician if PHQ-9 if score is 5-9: Outcomes/Goals: See list Psychosocial Outcomes/Goals:: ID's personal stressors & 2 strategies to manage stress by discharge Intervention/Plan: See List Interventions/Plan:: Assess stressors,coping strategies & signs of derpression on admission, Instruct/assist pt to develop coping & personal stress Mgt strategies, Instruct patient to recognize signs & symptoms of depression and Instruct patient to recog 30-day Reassessments: 30 day Reassessments:: Met Psychosocial - 60-Day Assess Target Goals Target Goals Referral to Behavioral Health PS - Interventions: Yes: Attend Stress Management Classes and No: Referral to Behavioral Health if PHQ-9 score >9:, No: Referral to [facility] and No: Referral to Physician if PHQ-9 if score is 5-9: Outcomes/Goals: See list Psychosocial Outcomes/Goals:: ID's personal stressors & 2 strategies to manage stress by discharge Psychosocial - 90-Day Assess Target Goals Target Goals Referral to Behavioral Health PS - Interventions: Yes: Attend Stress Management Classes and No: Referral to Behavioral Health if PHQ-9 score >9:, No: Referral to [facility] and No: Referral to Physician if PHQ-9 if score is 5-9: Psychosocial - Final Assessmen Target Goals Target Goals Referral to Behavioral Health PS - Interventions: Yes: Attend Stress Management Classes and No: Referral to Behavioral Health if PHQ-9 score >9:, No: Referral to [facility] and No: Referral to Physician if PHQ-9 if score is 5-9: Nutrition - 90-Day Assessment Weight Mgt (Other Care) Height: 6 ft 2 in Weight:: 301 lb 8 oz BMI: 38.7 Nutrition - Final Assessment Weight Mgt (Other Care) Height: 6 ft 2 in Weight:: 301 lb 8 oz BMI: 38.7
[2023-09-06 05:14] VITALS: BP 124/66
[2023-09-06 05:19] VITALS: BP 124/66; BMI 38.7
== END 2023-09-19 23:59 ==
LOC: CR 08:00
PROVIDERS: PCP Family Medicine; Referring Provider Thoracic Surgery (Cardiothoracic Vascular Surgery); Visit Provider Thoracic Surgery (Cardiothoracic Vascular Surgery)
DX: Z95.2 Presence of prosthetic heart valve (principal)
CPT/HCPCS: 93798; 97802

== ENCOUNTER 2023-09-17 09:30 | Outpatient (RCR) | payer OTHER, SELFPAY ==
[2023-09-06 05:19] VITALS: BMI 38.7
[2023-09-17 10:20] LABS: International Normalized Ratio 1.5; Prothrombin Time (Protime)PT. 18.1 SECONDS (11.7-14.9)
== END 2023-09-17 18:00 | disposition home or self-care (01) ==
LOC: LAB 09:30
PROVIDERS: PCP Family Medicine; Referring Provider Internal Medicine Cardiovascular Disease; Visit Provider Internal Medicine Cardiovascular Disease
DX: Z79.01 Long term (current) use of anticoagulants (principal); Z95.2 Presence of prosthetic heart valve
CPT/HCPCS: 36415; 85610

== ENCOUNTER 2023-10-15 09:25 | Outpatient (RCR) | payer OTHER, SELFPAY ==
[2023-09-06 05:19] VITALS: BMI 38.7
--- NOTE | 2023-09-24 09:38 | RAD_ITS ---
INDICATION: Ascites, Diminished Bases, SOB, weight gain EXAMINATION/TECHNIQUE: X-RAY - XR Chest 2 Views COMPARISON: Prior study dated: 11/15/2022 FINDINGS: LINES/DEVICES: None. LUNGS: No consolidation, edema or effusion. No pneumothorax. MEDIASTINUM AND CARDIOVASCULAR STRUCTURES: Status post median sternotomy and aortic valve prosthesis. Atrial appendage clip is seen. BONES AND SOFT TISSUES: Mild degenerative changes of the thoracic spine. RAD/Chest PA and Lateral IMPRESSION: No radiographic evidence of acute cardiopulmonary disease. Electronically Signed: Bijan Blas MD at 10:17 EDT ,
[2023-09-24 10:41] LABS: Absolute Lymphocyte Count 1.45 X10^3/uL (0.83-4.51); Absolute Neutrophil Count 5.5 X10^3/uL (2.0-7.7); Basophil# 0.03 X10^3/uL; Basophil% 0.4 % (0-1); Eosinophils% 2.5 % (0-5); Hematocrit 35.9 % (40-54); Hemoglobin 10.9 g/dL (13.0-16.5); Lymphocyte # 1.45 X10^3/ul (0.83-4.51); Lymphocyte % 17.9 % (19-41); Mean Corp Hgb Conc 30.4 g/dL (32-36); Mean Corpuscular Hgb 25.5 pg (27.0-32.0); Mean Corpuscular Volume 84.1 fL (80-94); Mean Platelet Vol. 10.5 fl (6.2-12.0); Monocyte# 0.92 X10^3/uL; Monocyte% 11.3 % (0-10); NRBC Flagged by Analyzer 0 % (0-5); Neutrophil # 5.48 X10^3/uL (2.7-7.7); Neutrophil % 67.5 % (47-70); Platelet Count 308 K/mm3 (150-450); RBC Distribution Width CV 17.2 % (11.6-14.6); RBC Distribution Width SD 53.2 fl (35.1-43.9); Red Blood Count 4.27 M/mm3 (4.6-6.2); White Blood Count 8.1 K/mm3 (4.4-11.0)
[2023-09-24 10:49] LABS: International Normalized Ratio 1.4; Prothrombin Time (Protime)PT. 16.6 SECONDS (11.7-14.9)
[2023-09-24 10:54] LABS: BNP,B-Type NATRIURETIC PEPTIDE 59.7 pg/mL (0-100)
[2023-09-24 11:22] LABS: ALB/GLOB Ratio 0.8 RATIO (0.9-2.4); AST(SGOT) 34 U/L (15-37); Alanine Aminotransfer ALT/SGPT 48 U/L (16-61); Albumin, Serum 3.3 g/dL (3.2-5.0); Alkaline Phosphatase 148 U/L (45-117); Anion Gap 7 (5-15); BUN 24 mg/dL (7-18); BUN/Creat Ratio 24.1 RATIO (10-20); Calcium,Total 9.3 mg/dL (8.5-10.1); Chloride 104 mmol/L (98-107); Creatinine, Serum 0.99 mg/dL (0.70-1.30); EST Glomerular Filtration Rate 82 mL/min (>60); Est Glom Filt Rate - Afr Amer 99 mL/min (>60); Globulin 4.3 g/dL (2.2-4.2); Glucose 98 mg/dL (74-106); Potassium 4.2 mmol/L (3.5-5.1); Protein, Total 7.6 g/dL (6.4-8.2); Sodium Level 138 mmol/L (136-145)
[2023-10-01 10:00] LABS: International Normalized Ratio 1.4; Prothrombin Time (Protime)PT. 17.2 SECONDS (11.7-14.9)
[2023-10-08 09:57] LABS: International Normalized Ratio 1.6; Prothrombin Time (Protime)PT. 19.2 SECONDS (11.7-14.9)
[2023-10-15 10:20] LABS: International Normalized Ratio 2.5; Prothrombin Time (Protime)PT. 27.1 SECONDS (11.7-14.9)
== END 2023-10-20 18:00 | disposition home or self-care (01) ==
LOC: LAB 09:25
PROVIDERS: Physician Assistant Medical; PCP Family Medicine; Referring Provider Internal Medicine Cardiovascular Disease; Visit Provider Internal Medicine Cardiovascular Disease
DX: Z95.2 Presence of prosthetic heart valve; Z79.01 Long term (current) use of anticoagulants; R18.8 Other ascites; R06.09 Other forms of dyspnea; R09.89 Other specified symptoms and signs involving the circulatory and respiratory systems; R63.5 Abnormal weight gain; R60.9 Edema, unspecified
CPT/HCPCS: 36415; 71046; 80053; 83880; 85025; 85610

== ENCOUNTER → 2023-10-15 | Outpatient (CLI) | payer OTHER, SELFPAY ==
[2023-10-06 11:50] VITALS: BMI 39.1
--- NOTE | 2023-10-15 09:07 | RAD_ITS ---
HISTORY: Spondylosis without myelopathy or radiculopathy, cervical region. TECHNIQUE: XR Spine Cervical 2 or 3 Views. COMPARISON: CT 11/03/2022. FINDINGS: VERTEBRAE: Vertebral body heights maintained. No acute fracture identified. Midline sternotomy noted. ALIGNMENT: No significant anterior or posterior subluxation. Chronic straightening of the cervical lordosis. INTERVERTEBRAL DISCS: Degenerative changes with intervertebral disc space narrowing of C3-4, C5-6, and C6-7. SOFT TISSUES: No significant prevertebral soft tissue swelling. RAD/Cerv Spine 2 or 3 Views IMPRESSION: No acute fracture or dislocation identified in the cervical spine. Multilevel degenerative change. Electronically Signed: Darlyn Lin MD at 11:10 EDT ,
== END | disposition home or self-care (01) ==
LOC: RAD 09:06
PROVIDERS: PCP Family Medicine; Referring Provider Anesthesiology Pain Medicine; Visit Provider Anesthesiology Pain Medicine
DX: M67.812 Other specified disorders of synovium, left shoulder (principal)
CPT/HCPCS: 72040

== ENCOUNTER → 2023-10-19 | Outpatient (CLI) | payer OTHER, SELFPAY ==
[2023-10-06 11:50] VITALS: BMI 39.1
[2023-10-19 09:15] LABS: ALB/GLOB Ratio 0.7 RATIO (0.9-2.4); AST(SGOT) 25 U/L (15-37); Alanine Aminotransfer ALT/SGPT 36 U/L (16-61); Alkaline Phosphatase 150 U/L (45-117); Anion Gap 3 (5-15); BUN 19 mg/dL (7-18); BUN/Creat Ratio 19.7 RATIO (10-20); Calcium,Total 9.4 mg/dL (8.5-10.1); Chloride 104 mmol/L (98-107); Creatinine, Serum 0.96 mg/dL (0.70-1.30); EST Glomerular Filtration Rate 85 mL/min (>60); Est Glom Filt Rate - Afr Amer 103 mL/min (>60); Globulin 4.5 g/dL (2.2-4.2); Glucose 147 mg/dL (74-106); Protein, Total 7.5 g/dL (6.4-8.2); Sodium Level 138 mmol/L (136-145)
[2023-10-19 10:44] LABS: BNP,B-Type NATRIURETIC PEPTIDE 29.7 pg/mL (0-100)
== END | disposition home or self-care (01) ==
PROVIDERS: PCP Family Medicine; Referring Provider Nurse Practitioner Gerontology; Visit Provider Nurse Practitioner Gerontology
DX: R06.09 Other forms of dyspnea (principal)
CPT/HCPCS: 36415; 80053; 83880

== ENCOUNTER 2023-10-20 08:00 | Outpatient (RCR) | payer OTHER, SELFPAY ==
[2023-09-06 05:19] VITALS: BMI 38.7
[2023-09-20 00:29] VITALS: BP 124/66
--- NOTE | 2023-10-06 11:39 | CR.ITP_ITS ---
Exercise - Initial Assessment Physician Prescribed Exercise Modalities: Treadmill, Schwinn Airdyne AD-7 and SciFit Stepper Nutrition - Initial Assessment Weight Mgt (Other Care) Height: 6 ft 2 in Weight:: 304 lb 8 oz BMI: 39.1 Psychosocial - Initial Assess Target Goals Target Goals Patient Health Questionnaire PHQ-9 Screening 60-Day Re-eval Assessment: 1. Little interest or pleasure in doing things: Not at all 2. Feeling down, depressed, or hopeless: Not at all 3. Trouble falling or staying asleep, or sleeping too much: Several days 4. Feeling tired or having little energy: Not at all 5. Poor appetite or overeating: Not at all 6. Feeling bad about yourself -- or that you are a failure or have let yourself or your family down: Not at all 7. Trouble concentrating on things, such as reading the newspaper or watching television: Several days 8. Moving or speaking so slowly that other people could have noticed. Or the opposite - being so fidgety or restless that you have been moving around a lot more than usual: Not at all 9. Thoughts that you would be better off , or of hurting yourself in some way: Not at all How difficult have these problems made it for you to do your work, take care of things at home, or get along with other people?: Not difficult at all Total Score: 2 Self-Efficacy 6-Item Scale 60-Day Re-eval Assessment: We would like to know how confident you are in doing certain activities. Please select your confidence level for: Fatigue Select Number: 8 Physical Discomfort or Pain Select Number: 7 Emotional Distress Select Number: 10 Other Symptoms or Health Problems Select Number: 5 Different Tasks and Activities Select Number: 8 Medication Select Number: 8 Total Score:: 7 Nutrition Survey Nutrition Survey Instructions Scoring Instructions Exercise - 30-day Assessment Physician Prescribed Exercise Modalities: Treadmill, Schwinn Airdyne AD-7 and SciFit Stepper Exercise - 60-day Assessment Visit Date of Eval: 10/06/23 Session #:: 19 Physician Prescribed Exercise Modalities: Treadmill, Schwinn Airdyne AD-7 and SciFit Stepper Frequency: 3x/week for 12 weeks [36 sessions] Intensity: 60-80% of age predicted maximum heart rate reserve Duration: 30 - 45 minutes Current METSs:: 5.5 Target Heart Rate:: 121-136 Current RPE:: 11 Maximum Excercise HR:: 82 Resting Blood Pressure: 118/64 Maximum Exercise Blood Pressure: 134/66 EKG Type: NSR with rare PAC's Outcomes & Goals Goals:: Verbalizes understanding of THR, RPE & goal METS by session 6, Documents in home exercise log/reports 30 min aerobic 5 day/wk by DC, Demonstrates accurate pulse taking by DC and Other additional outcome/goals: see below Intervention & Plan Exercise Program Goals: Instruct on personal THR & RPE, Instruct on MET level & personal MET goal, Show patient to take own pulse /validate performance until accurate, Instruct on home exercise and Other additional plan/int 30-day Reassessments 30 day Reassessments:: Progressing Reassessment Notes & Comments:: THR explained Physical Activity Home Exercise Physical Activity - Home Exercise: Safe Exercise, Warm-up, Self-monitoring, Cool-Down, Home Exercise > 30 min Daily and Sitting Time <3 hours/daily Outcomes & Goals Outcomes/Goals: Demonstrates correct Warm-up/exercise Cool-Down (S3) if = 2.5 METs, Verbalizes symptoms of exercise intolerance by Session 3 (S3), Demonstrate safe equipment use (S3) & follows exercise prescrition (6) and Other: See below Intervention & Plan Plan/Intervention: Instruct warm-up & cool-down if exercising at > 2 METs, Instruct on symptoms of exercise intolerance & actions to take, Instruct & monitor on saf, Assess intial functional capacity & safety risk and Other See below 30-day Reassessments 30 day Reassessments:: Progressing Reassessment Notes & Comments:: cool down encouraged Exercise - 90-day Assessment Physician Prescribed Exercise Modalities: Treadmill, Schwinn Airdyne AD-7 and SciFit Stepper Exercise - Final/Discharge Physician Prescribed Exercise Modalities: Treadmill, Schwinn Airdyne AD-7 and SciFit Stepper Nutrition - 30-Day Assessment Weight Mgt (Other Care) Height: 6 ft 2 in Weight:: 304 lb 8 oz BMI: 39.1 Nutrition - 60-Day Assessment Program Goals Nutrition Program Goals Patient has diagnosis of Hyperlipidemia (ICD E78)?: Yes Visit Date of Eval: 10/06/23 Session #:: 19 Cholesterol/Lipids (Other Core Measures) Determine presence & major risk factors that modify LDL goal: Hypertension or hypertensive medication, Low HDL cholesterol <40 mg/dL*, Family history of premature CHD in Male < 55 years: female <65 yearsFa and Age men > 45 years; women >/= 55 years Outcomes/Goals: Pt IDs own risk factors & lifestyle modifications by Session 10, Verbalizes symptoms of angina & response by session 3., Pt independently manages and Other Additional Outcomes/Goals: Intervention/Plan: Advocate for lipid panel cholesterol medication if applicable, Instruct on personal lipid levels & lipid goals/NCEP guidelines, Instruct on cholesterol and Other additional plan/int 30-day Reassessments:: Met Reassessment Notes & Comments:: pt met with dietitian Diabetes (Other Core Measures) Diabetes Type: Not Applicable Weight Mgt (Other Care) Height: 6 ft 2 in Weight:: 304 lb 8 oz BMI: 39.1 Diagnosis Overweight/Obesity BMI> 30% ICD-10 E66: Yes Diagnosis High BMI/Morbid Obesity BMI> 35% ICD-10 Z68: Yes Outcomes/Goals: Pt sets, maintains & shows weight loss goal & trend during rehab and Other additional outcomes/goals Intervention/Plan: Instruct on ideal BMI & set weight loss goal w/patient, Assist pt to ID & incorporate diet changes for weight loss by S9, Refer to Structured Weight Loss program as appropriate, Encourage goal of using 250- 300dcal per session for weight loss and Other additional plan/interventions 30 day Reassessments:: Progressing Reassessment Notes & Comments:: pt met with dietitian Healthy Eating Habits Will attend diet classes:: Yes Outcomes/Goals:: Consume diet rich in vegs,fruits,whole grain/high fiber,fish,lean meat, Limit sat/trans fats,cholesterol & added salts & sugars and Other additional outcome/goals: Intervention/Plan:: Assess current eating habits and Other Additional plan/interventions 30-day Reassessments:: Met Education Gave educational materials for:: Signs & symptoms of hypoglycemia, Signs & symptoms of hyperglycemia, Relate diabetes to coronary artery disease and Healthy eating Core - 60-Day Assessment Visit Date of Eval: 10/06/23 Session #:: 19 Medication Compliance Preventative Medication(s):: Aspirin, Statin/lipid, Beta jose and Warfarin/Coumadin H/O mental health issues: depression, anxiety, or addiction?: No Doesn?t believe in the benefits of treatment?: No Believes medications are unnecessary or harmful?: No Has a concern about medication side effects?: No Expresses concern over the cost of medications?: No Outcomes/Goals: Verbalizes medications,desired effect & common side effects @ DC, Pt self-reports following medication regimen, Keeps card in wallet w/medications listed by DC and Other additional outcome/goals: 30-day Reassessments:: Progressing Reassessment Notes & Comments:: 09/19 lisinopril decreased to 5 mg QD, 09/30 Lasix 20 QD (decreased) Tobacco Use Tobacco Use: Non-smoker Hypertension Hypertension Diagnosis:: Hypertension ICD-10 I10 Resting Blood Pressure:: 118/64 Citizen Of [place] Heart Association Hypertension Guidelines Peak Exercise Blood Pressure:: 134/66 Outcomes/Goals: Able to verbalize/achieve optimal blood pressure <130/80, Incorporates diet changes & exercise for blood pressure control by DC and Other additional outcomes/goals Interventions/plan: Instruct on optimal blood pressure, hypertension & medicati ons, Instruct on effects of sodium, alcohol, stress, exercise &hypertension and Other additional plan/interventions 30 day Reassessments:: Met Tobacco Cessation Referral Smoking Cessation Referral:: No Individual Education/Counseling:: No Education Schedule Given:: Yes Psychosocial - 30-Day Assess Target Goals Target Goals Outcomes/Goals: See list Psychosocial Outcomes/Goals:: ID's personal stressors & 2 strategies to manage stress by discharge and Other Additional outcome/goals: Psychosocial - 60-Day Assess VIsit Date of Eval: 10/06/23 Session #:: 19 History of previous Mental disease:: No Target Goals Target Goals Outcomes/Goals: See list Psychosocial Outcomes/Goals:: ID's personal stressors & 2 strategies to manage stress by discharge and Other Additional outcome/goals: Intervention/Plan: See List Interventions/Plan:: Assess stressors,coping strategies & signs of derpression on admission, Instruct/assist pt to develop coping & personal stress Mgt strategies, Refer to Behavioral Health if appropriate, Refer to Physician if appropriate, Instruct patient to recognize signs & symptoms of depression, Instruct patient to recog and Other additional plan/intervention 30-day Reassessments: 30 day Reassessments:: Met Psychosocial - 90-Day Assess Target Goals Target Goals Psychosocial - Final Assessmen Target Goals Target Goals Nutrition - 90-Day Assessment Weight Mgt (Other Care) Height: 6 ft 2 in Weight:: 304 lb 8 oz BMI: 39.1 Nutrition - Final Assessment Weight Mgt (Other Care) Height: 6 ft 2 in Weight:: 304 lb 8 oz BMI: 39.1
[2023-10-06 11:50] VITALS: BP 118/64; BMI 39.1
== END 2023-10-20 23:59 ==
LOC: CR 08:00
PROVIDERS: PCP Family Medicine; Referring Provider Thoracic Surgery (Cardiothoracic Vascular Surgery); Visit Provider Thoracic Surgery (Cardiothoracic Vascular Surgery)
DX: Z95.2 Presence of prosthetic heart valve (principal)
CPT/HCPCS: 93798

== ENCOUNTER → 2023-10-20 | Outpatient (CLI) | payer OTHER, SELFPAY ==
[2023-09-06 05:19] VITALS: BMI 38.7
[2023-10-06 11:50] VITALS: BMI 39.1
--- NOTE | 2023-10-20 07:09 | ECHOCS_ITS ---
Reason For Study: Presence of bioprosthetic heart valve (AVR) Procedure This was a 2D Doppler, Color Flow transthoracic echocardiogram. Contrast injection was performed. Exam performed in department. Left Ventricle Normal LV size. The estimated ejection fraction is 60 %. Unable to assess diastolic dysfunction. No regional wall motion abnormalities noted. Right Ventricle Normal RV size. Normal systolic function. Atria The left and right atria are normal. No doppler evidence for ASD. Mitral Valve There is no mitral valve stenosis. Trivial mitral valve insufficiency. Tricuspid Valve There is no tricuspid stenosis. Trivial tricuspid valve insufficiency. Pulmonary artery systolic pressure is 35 mmHg. Aortic Valve There is no aortic stenosis. No aortic valve insufficiency. Stable appearing mechanical aortic valve apparatus. Pulmonic Valve There is no pulmonic valvular stenosis. No pulmonic valve insufficiency. Great Vessels Normal aortic root. Pericardium/Pleural No pericardial effusion. Medication 22 gauge I.V. with prn adaptor inserted into right arm. Diluted definity 1.0ml given slow IV push to enhance endocardial definition. MMode/2D Measurements & Calculations LVIDd: 5.9 cm IVSd: 1.3 cm Ao root diam: 2.4 cm LVIDs: 3.9 cm LVPWd: 1.3 cm RVDd: 3.9 cm FS: 33.9 % LAV(MOD-bp): 115.8 ml LVAd ap4: 46.5 cm2 LVAd ap2: 45.9 cm2 LAV(MOD-bp) Indexed: 44.4 ml/m2 LVLd ap4: 10.9 cm LVLd ap2: 10.7 cm LAV(MOD-sp2): 113.4 ml EDV(MOD-sp4): 172.2 ml EDV(MOD-sp2): 162.2 ml LAV(MOD-sp4): 113.4 ml EDV(sp4-el): 168.5 ml EDV(sp2-el): 166.4 ml LVAs ap4: 25.8 cm2 LVAs ap2: 26.1 cm2 LVLs ap4: 8.7 cm LVLs ap2: 9.0 cm ESV(MOD-sp4): 66.2 ml ESV(MOD-sp2): 63.2 ml ESV(sp4-el): 65.1 ml ESV(sp2-el): 64.3 ml EF(MOD-sp4): 61.6 % EF(MOD-sp2): 61.0 % EF(sp4-el): 61.3 % SV(MOD-sp4): 106.0 ml SV(MOD-sp2): 99.0 ml SV(sp4-el): 103.4 ml LA A4 area: 28.6 cm2 LA dimension(2D): 5.1 cm RA A4 area: 24.1 cm2 TAPSE: 1.9 cm Time Measurements MV dec time: 0.25 sec Doppler Measurements & Calculations MV E max francisco: 85.0 cm/sec Lat Peak E' Francisco: 18.1 cm/sec Med Peak E' Francisco: 10.0 cm/sec MV A max francisco: 69.1 cm/sec E/E' lat: 4.7 E/E' med: 8.5 MV E/A: 1.2 MV V2 max: 100.1 cm/sec MV P1/2t max francisco: 96.9 cm/sec Ao V2 max: 235.2 cm/sec MV max P.0 mmHg MV P1/2t: 75.1 msec Ao max P.1 mmHg MV V2 mean: 49.8 cm/sec Ao V2 mean: 163.7 cm/sec MV mean P.2 mmHg MV dec slope: 377.8 cm/sec2 Ao mean P.1 mmHg MV V2 VTI: 34.4 cm MVA(P1/2t): 2.9 cm2 Ao V2 VTI: 48.9 cm AV (velocity ratio): 0.57 LV V1 max: 116.8 cm/sec PA V2 max: 124.1 cm/sec TR max francisco: 274.9 cm/sec LV V1 max P.5 mmHg PA V2 mean: 85.5 cm/sec TR max P.2 mmHg LV V1 mean P.1 mmHg LV V1 mean: 83.7 cm/sec LV V1 VTI: 27.9 cm ECHO/Echo Complete W/ Contrast Interpretation Summary The estimated ejection fraction is 60 %. Unable to assess diastolic dysfunction. Trivial mitral valve insufficiency. Ordering Physician: Harshad Live Referring Physician: lEeazar Hernandez Performed By: Brie Sosa, HAYDEE, RVT
== END | disposition home or self-care (01) ==
LOC: CVS 07:04
PROVIDERS: PCP Family Medicine; Referring Provider Internal Medicine Cardiovascular Disease; Visit Provider Internal Medicine Cardiovascular Disease
DX: Z95.2 Presence of prosthetic heart valve (principal)
CPT/HCPCS: 93306; Q9957; A4216; C8929

== ENCOUNTER 2023-11-12 09:15 | Outpatient (RCR) | payer OTHER, SELFPAY ==
[2023-10-21 00:41] VITALS: BMI 39.1
[2023-10-29 10:01] LABS: International Normalized Ratio 1.9; Prothrombin Time (Protime)PT. 21.4 SECONDS (11.7-14.9)
[2023-11-12 10:59] LABS: International Normalized Ratio 2.5; Prothrombin Time (Protime)PT. 26.5 SECONDS (11.7-14.9)
== END 2023-11-12 18:00 | disposition home or self-care (01) ==
LOC: LAB 09:15
PROVIDERS: PCP Family Medicine; Referring Provider Internal Medicine Cardiovascular Disease; Visit Provider Internal Medicine Cardiovascular Disease
DX: Z79.01 Long term (current) use of anticoagulants (principal); Z95.2 Presence of prosthetic heart valve
CPT/HCPCS: 36415; 85610

== ENCOUNTER → 2023-11-18 | Outpatient (CLI) | payer OTHER, SELFPAY ==
[2023-11-08 14:41] VITALS: BMI 39.9
[2023-11-18 10:05] LABS: BNP,B-Type NATRIURETIC PEPTIDE 58.4 pg/mL (0-100)
[2023-11-18 10:11] LABS: Anion Gap 5 (5-15); BUN 27 mg/dL (7-18); BUN/Creat Ratio 22.1 RATIO (10-20); Chloride 107 mmol/L (98-107); Creatinine, Serum 1.22 mg/dL (0.70-1.30); EST Glomerular Filtration Rate 65 mL/min (>60); Est Glom Filt Rate - Afr Amer 78 mL/min (>60); Glucose 97 mg/dL (74-106); Potassium 4.2 mmol/L (3.5-5.1); Sodium Level 139 mmol/L (136-145)
== END | disposition home or self-care (01) ==
LOC: LAB 09:02
PROVIDERS: PCP Family Medicine; Referring Provider Internal Medicine Cardiovascular Disease; Visit Provider Internal Medicine Cardiovascular Disease
DX: R63.5 Abnormal weight gain (principal); R18.8 Other ascites; Z95.2 Presence of prosthetic heart valve; R06.09 Other forms of dyspnea
CPT/HCPCS: 36415; 80048; 83880

== ENCOUNTER 2023-11-19 08:00 | Outpatient (RCR) | payer OTHER, SELFPAY ==
[2023-10-21 00:41] VITALS: BP 118/64; BP 124/66; BMI 39.1
--- NOTE | 2023-11-08 14:32 | CR.ITP_ITS ---
Exercise - Initial Assessment Physician Prescribed Exercise Modalities: Treadmill, Schwinn Airdyne AD-7 and SciFit Stepper Nutrition - Initial Assessment Weight Mgt (Other Care) Height: 6 ft 2 in Weight:: 310 lb 8 oz BMI: 39.9 Psychosocial - Initial Assess Target Goals Target Goals Patient Health Questionnaire PHQ-9 Screening 90-Day Re-eval Assessment: 1. Little interest or pleasure in doing things: Not at all 2. Feeling down, depressed, or hopeless: Not at all 3. Trouble falling or staying asleep, or sleeping too much: Several days 4. Feeling tired or having little energy: Not at all 5. Poor appetite or overeating: Not at all 6. Feeling bad about yourself -- or that you are a failure or have let yourself or your family down: Not at all 7. Trouble concentrating on things, such as reading the newspaper or watching television: Several days 8. Moving or speaking so slowly that other people could have noticed. Or the opposite - being so fidgety or restless that you have been moving around a lot more than usual: Not at all 9. Thoughts that you would be better off , or of hurting yourself in some way: Not at all How difficult have these problems made it for you to do your work, take care of things at home, or get along with other people?: Not difficult at all Total Score: 2 Self-Efficacy 6-Item Scale 90-Day Re-eval Assessment: We would like to know how confident you are in doing certain activities. Please select your confidence level for: Fatigue Select Number: 8 Physical Discomfort or Pain Select Number: 7 Emotional Distress Select Number: 10 Other Symptoms or Health Problems Select Number: 5 Different Tasks and Activities Select Number: 8 Medication Select Number: 8 Total Score:: 7 Nutrition Survey Nutrition Survey Instructions Scoring Instructions Exercise - 30-day Assessment Physician Prescribed Exercise Modalities: Treadmill, Schwinn Airdyne AD-7 and SciFit Stepper Exercise - 60-day Assessment Physician Prescribed Exercise Modalities: Treadmill, Schwinn Airdyne AD-7 and SciFit Stepper Exercise - 90-day Assessment Visit Date of Eval: 11/08/23 Session #:: 28 Physician Prescribed Exercise Modalities: Treadmill, Schwinn Airdyne AD-7 and SciFit Stepper Frequency: 3x/week for 12 weeks [36 sessions] Intensity: 60-80% of age predicted maximum heart rate reserve Duration: 30 - 45 minutes Current METSs:: 5.5 Target Heart Rate:: 121-136 Current RPE:: 12 Maximum Excercise HR:: 89 Resting Blood Pressure: 112/50 Maximum Exercise Blood Pressure: 128/60 EKG Type: NSR with rare PAC/PVC Outcomes & Goals Goals:: Verbalizes understanding of THR, RPE & goal METS by session 6, Documents in home exercise log/reports 30 min aerobic 5 day/wk by DC, Demonstrates accurate pulse taking by DC and Other additional outcome/goals: see below Intervention & Plan Exercise Program Goals: Instruct on personal THR & RPE, Instruct on MET level & personal MET goal, Show patient to take own pulse /validate performance until accurate, Instruct on home exercise and Other additional plan/int 30-day Reassessments 30 day Reassessments:: Met Physical Activity Home Exercise Physical Activity - Home Exercise: Safe Exercise, Warm-up, Self-monitoring, Cool-Down, Home Exercise > 30 min Daily and Sitting Time <3 hours/daily Outcomes & Goals Outcomes/Goals: Demonstrates correct Warm-up/exercise Cool-Down (S3) if = 2.5 METs, Verbalizes symptoms of exercise intolerance by Session 3 (S3), Demonstrate safe equipment use (S3) & follows exercise prescrition (6) and Other: See below Intervention & Plan Plan/Intervention: Instruct warm-up & cool-down if exercising at > 2 METs, Instruct on symptoms of exercise intolerance & actions to take, Instruct & monitor on saf, Assess intial functional capacity & safety risk and Other See below 30-day Reassessments 30 day Reassessments:: Met Exercise - Final/Discharge Physician Prescribed Exercise Modalities: Treadmill, Schwinn Airdyne AD-7 and SciFit Stepper Nutrition - 30-Day Assessment Weight Mgt (Other Care) Height: 6 ft 2 in Weight:: 310 lb 8 oz BMI: 39.9 Nutrition - 60-Day Assessment Weight Mgt (Other Care) Height: 6 ft 2 in Weight:: 310 lb 8 oz BMI: 39.9 Core - 90 Day Assessment Visit Date of Eval: 11/08/23 Session #:: 28 Medication Compliance Preventative Medication(s):: Aspirin, Statin/lipid, Beta jose and Warfarin/Coumadin H/O mental health issues: depression, anxiety, or addiction?: No Doesn?t believe in the benefits of treatment?: No Believes medications are unnecessary or harmful?: No Has a concern about medication side effects?: No Expresses concern over the cost of medications?: No Outcomes/Goals: Verbalizes medications,desired effect & common side effects @ DC, Pt self-reports following medication regimen, Keeps card in wallet w/medications listed by DC and Other additional outcome/goals: Interventions/plans: Instruct on medication effects & side effects, Review medication list w/patient every two weeks, Instruct importance of taking meds as ordered & assist problem solving and Other additional 30-day Reassessments:: Met Tobacco Use Tobacco Use: Non-smoker Hypertension Hypertension Diagnosis:: Hypertension ICD-10 I10 Resting Blood Pressure:: 112/50 [place] [employer] Hypertension Guidelines Peak Exercise Blood Pressure:: 128/60 Outcomes/Goals: Able to verbalize/achieve optimal blood pressure <130/80, Incorporates diet changes & exercise for blood pressure control by DC and Other additional outcomes/goals Interventions/plan: Instruct on optimal blood pressure, hypertension & medications, Instruct on effects of sodium, alcohol, stress, exercise &hypertension and Other additional plan/interventions 30 day Reassessments:: Met Tobacco Cessation Referral Smoking Cessation Referral:: No Individual Education/Counseling:: No Education Schedule Given:: Yes Psychosocial - 30-Day Assess Target Goals Target Goals Psychosocial - 60-Day Assess Target Goals Target Goals Psychosocial - 90-Day Assess VIsit Date of Eval: 11/08/23 Session #:: 28 History of previous Mental disease:: No Target Goals Target Goals Outcomes/Goals: See list Psychosocial Outcomes/Goals:: ID's personal stressors & 2 strategies to manage stress by discharge and Other Additional outcome/goals: Intervention/Plan: See List Interventions/Plan:: Assess stressors,coping strategies & signs of derpression on admission, Instruct/assist pt to develop coping & personal stress Mgt strategies, Refer to Behavioral Health if appropriate, Refer to Physician if appropriate, Instruct patient to recognize signs & symptoms of depression, Instruct patient to recog and Other additional plan/intervention 30-day Reassessments: 30 day Reassessments:: Met Psychosocial - Final Assessmen Target Goals Target Goals Nutrition - 90-Day Assessment Program Goals Nutrition Program Goals Patient has diagnosis of Hyperlipidemia (ICD E78)?: Yes Visit Date of Eval: 11/08/23 Session #:: 28 Cholesterol/Lipids (Other Core Measures) Determine presence & major risk factors that modify LDL goal: Hypertension or hypertensive medication, Low HDL cholesterol <40 mg/dL*, Family history of p remature CHD in Male < 55 years: female <65 yearsFa and Age men > 45 years; women >/= 55 years Outcomes/Goals: Pt IDs own risk factors & lifestyle modifications by Session 10, Verbalizes symptoms of angina & response by session 3., Pt independently manages and Other Additional Outcomes/Goals: Intervention/Plan: Advocate for lipid panel cholesterol medication if applicable, Instruct on personal lipid levels & lipid goals/NCEP guidelines, Instruct on cholesterol and Other additional plan/int 30-day Reassessments:: Met Reassessment Notes & Comments:: pt has met with dietitian Diabetes (Other Core Measures) Diabetes Type: Not Applicable Weight Mgt (Other Care) Height: 6 ft 2 in Weight:: 310 lb 8 oz BMI: 39.9 Diagnosis Overweight/Obesity BMI> 30% ICD-10 E66: Yes Diagnosis High BMI/Morbid Obesity BMI> 35% ICD-10 Z68: Yes Outcomes/Goals: Pt sets, maintains & shows weight loss goal & trend during rehab and Other additional outcomes/goals Intervention/Plan: Instruct on ideal BMI & set weight loss goal w/patient, Assist pt to ID & incorporate diet changes for weight loss by S9, Refer to Structured Weight Loss program as appropriate, Encourage goal of using 250- 300dcal per session for weight loss and Other additional plan/interventions 30 day Reassessments:: Met Reassessment Notes & Comments:: pt has met with dietitian Healthy Eating Habits Will attend diet classes:: Yes Outcomes/Goals:: Consume diet rich in vegs,fruits,whole grain/high fiber,fish,lean meat, Limit sat/trans fats,cholesterol & added salts & sugars and Other additional outcome/goals: Intervention/Plan:: Assess current eating habits and Other Additional plan/interventions 30-day Reassessments:: Met Education Gave educational materials for:: Signs & symptoms of hypoglycemia, Signs & symptoms of hyperglycemia, Relate diabetes to coronary artery disease and Hea lthy eating Nutrition - Final Assessment Weight Mgt (Other Care) Height: 6 ft 2 in Weight:: 310 lb 8 oz BMI: 39.9
[2023-11-08 14:41] VITALS: BP 112/50; BMI 39.9
== END 2023-11-20 23:59 ==
LOC: CR 08:00
PROVIDERS: PCP Family Medicine; Referring Provider Thoracic Surgery (Cardiothoracic Vascular Surgery); Visit Provider Thoracic Surgery (Cardiothoracic Vascular Surgery)
DX: Z95.2 Presence of prosthetic heart valve (principal)
CPT/HCPCS: 93798

== ENCOUNTER 2023-12-01 08:00 | Outpatient (RCR) | payer OTHER, SELFPAY ==
[2023-11-21 00:24] VITALS: BP 112/50; BP 118/64; BP 124/66
[2023-11-30 09:01] VITALS: BMI 39.9
== END 2023-12-20 23:59 ==
LOC: CR 08:00
PROVIDERS: PCP Family Medicine; Referring Provider Thoracic Surgery (Cardiothoracic Vascular Surgery); Visit Provider Thoracic Surgery (Cardiothoracic Vascular Surgery)
DX: Z95.2 Presence of prosthetic heart valve (principal)
CPT/HCPCS: 93798

== ENCOUNTER 2023-12-03 08:30 | Outpatient (RCR) | payer OTHER, SELFPAY ==
[2023-11-21 00:24] VITALS: BMI 39.1
[2023-11-26 10:37] LABS: Prothrombin Time (Protime)PT. 39.1 SECONDS (11.7-14.9)
[2023-11-26 10:56] LABS: International Normalized Ratio 4.1
[2023-12-03 09:49] LABS: International Normalized Ratio 2.7; Prothrombin Time (Protime)PT. 28.8 SECONDS (11.7-14.9)
== END 2023-12-03 18:00 | disposition home or self-care (01) ==
LOC: LAB 08:30
PROVIDERS: PCP Family Medicine; Referring Provider Internal Medicine Cardiovascular Disease; Visit Provider Internal Medicine Cardiovascular Disease
DX: Z79.01 Long term (current) use of anticoagulants (principal); Z95.2 Presence of prosthetic heart valve
CPT/HCPCS: 36415; 85610

== ENCOUNTER 2024-01-17 07:10 | Outpatient (RCR) | payer OTHER, SELFPAY ==
[2023-12-21 04:19] VITALS: BMI 39.1
[2023-12-21 09:56] LABS: International Normalized Ratio 3.6
[2023-12-31 08:48] LABS: Prothrombin Time (Protime)PT. 30.5 SECONDS (11.7-14.9)
[2024-01-17 09:07] LABS: International Normalized Ratio 2.4; Prothrombin Time (Protime)PT. 25.6 SECONDS (11.7-14.9)
== END 2024-01-17 18:00 | disposition home or self-care (01) ==
LOC: LAB 07:10
PROVIDERS: PCP Family Medicine; Referring Provider Internal Medicine Cardiovascular Disease; Visit Provider Internal Medicine Cardiovascular Disease
DX: Z79.01 Long term (current) use of anticoagulants (principal); Z95.2 Presence of prosthetic heart valve
CPT/HCPCS: 36415; 85610

== ENCOUNTER → 2024-02-08 | Outpatient (CLI) | payer OTHER, SELFPAY ==
[2024-02-08 12:59] VITALS: BMI 39.9
[2024-02-08 13:53] LABS: Amphetamine Urine VISTA NEGATIVE (<1000 ng/mL); Barbiturate Urine VISTA NEGATIVE (< 200 ng/mL); Benzodiazepine Urine VISTA NEGATIVE (< 200 ng/mL); Cocaine Urine VISTA NEGATIVE (< 300 ng/mL); Ecstacy Urine VISTA NEGATIVE (< 500 ng/mL); Methadone Urine VISTA NEGATIVE (< 300 ng/mL); PCP Urine VISTA NEGATIVE (< 25 ng/mL); THC Urine VISTA NEGATIVE (< 50 ng/mL); Vista UDS pH Range 5
== END | disposition home or self-care (01) ==
LOC: LABSPEC 13:02
PROVIDERS: PCP Family Medicine; Referring Provider Anesthesiology Pain Medicine; Visit Provider Anesthesiology Pain Medicine
DX: F11.20 Opioid dependence, uncomplicated (principal)
CPT/HCPCS: 80307

== ENCOUNTER 2024-02-11 07:44 | Outpatient (RCR) | payer OTHER, SELFPAY ==
[2024-02-08 12:59] VITALS: BMI 39.9
[2024-02-11 08:55] LABS: International Normalized Ratio 2.2; Prothrombin Time (Protime)PT. 24.4 SECONDS (11.7-14.9)
== END 2024-02-19 18:00 | disposition home or self-care (01) ==
LOC: LAB 07:44
PROVIDERS: PCP Family Medicine; Referring Provider Internal Medicine Cardiovascular Disease; Visit Provider Internal Medicine Cardiovascular Disease
DX: Z95.2 Presence of prosthetic heart valve; Z79.01 Long term (current) use of anticoagulants
CPT/HCPCS: 36415; 85610

== ENCOUNTER 2024-03-07 12:05 | Outpatient (RCR) | payer OTHER, SELFPAY ==
[2024-02-08 12:59] VITALS: BMI 39.9
[2024-03-07 12:49] LABS: International Normalized Ratio 2.4
== END 2024-03-07 18:00 | disposition home or self-care (01) ==
LOC: LAB 12:05
PROVIDERS: PCP Family Medicine; Referring Provider Internal Medicine Cardiovascular Disease; Visit Provider Internal Medicine Cardiovascular Disease
DX: Z95.2 Presence of prosthetic heart valve (principal); Z79.01 Long term (current) use of anticoagulants
CPT/HCPCS: 36415; 85610

== ENCOUNTER 2024-04-11 12:59 | Outpatient (RCR) | payer OTHER, SELFPAY ==
[2024-02-08 12:59] VITALS: BMI 39.9
[2024-04-11 13:31] LABS: International Normalized Ratio 2.2; Prothrombin Time (Protime)PT. 25.1 SECONDS (11.7-14.9)
== END 2024-04-11 18:00 | disposition home or self-care (01) ==
LOC: LAB 12:59
PROVIDERS: PCP Family Medicine; Referring Provider Internal Medicine Cardiovascular Disease; Visit Provider Internal Medicine Cardiovascular Disease
DX: Z79.01 Long term (current) use of anticoagulants (principal); Z95.2 Presence of prosthetic heart valve
CPT/HCPCS: 36415; 85610

== ENCOUNTER 2024-05-23 09:50 | Outpatient (RCR) | payer OTHER, SELFPAY ==
[2024-02-08 12:59] VITALS: BMI 39.9
[2024-05-23 10:30] LABS: International Normalized Ratio 2.2; Prothrombin Time (Protime)PT. 25.3 SECONDS (11.7-14.9)
== END 2024-05-23 18:00 | disposition home or self-care (01) ==
LOC: LAB 09:50
PROVIDERS: PCP Family Medicine; Referring Provider Internal Medicine Cardiovascular Disease; Visit Provider Internal Medicine Cardiovascular Disease
DX: Z79.01 Long term (current) use of anticoagulants (principal); Z95.2 Presence of prosthetic heart valve
CPT/HCPCS: 36415; 85610

== ENCOUNTER 2024-07-14 10:04 | Outpatient (RCR) | payer OTHER, SELFPAY ==
[2024-02-08 12:59] VITALS: BMI 39.9
[2024-07-14 11:18] LABS: International Normalized Ratio 2.7
== END 2024-07-19 18:00 | disposition home or self-care (01) ==
LOC: LAB 10:04
PROVIDERS: PCP Family Medicine; Referring Provider Internal Medicine Cardiovascular Disease; Visit Provider Internal Medicine Cardiovascular Disease
DX: Z79.01 Long term (current) use of anticoagulants (principal)
CPT/HCPCS: 36415; 85610

== ENCOUNTER 2024-09-14 10:06 | Outpatient (RCR) | payer OTHER, SELFPAY ==
[2024-02-08 12:59] VITALS: BMI 39.9
[2024-09-05 10:17] LABS: International Normalized Ratio 3.1; Prothrombin Time (Protime)PT. 32.6 SECONDS (11.7-14.9)
[2024-09-14 11:23] LABS: International Normalized Ratio 2.4; Prothrombin Time (Protime)PT. 26.5 SECONDS (11.7-14.9)
== END 2024-09-14 18:00 | disposition home or self-care (01) ==
LOC: LAB 10:06
PROVIDERS: PCP Family Medicine; Referring Provider Internal Medicine Cardiovascular Disease; Visit Provider Internal Medicine Cardiovascular Disease
DX: Z79.01 Long term (current) use of anticoagulants (principal); Z95.2 Presence of prosthetic heart valve
CPT/HCPCS: 36415; 85610

== ENCOUNTER 2024-12-27 09:59 | Outpatient (RCR) | payer MEDICARE, SELFPAY ==
[2024-02-08 12:59] VITALS: BMI 39.9
[2024-12-27 10:52] LABS: Prothrombin Time (Protime)PT. 31.1 SECONDS (11.7-14.9)
== END 2024-12-27 18:00 | disposition home or self-care (01) ==
LOC: LAB 09:59
PROVIDERS: Physician Assistant Medical; PCP Family Medicine; Referring Provider Internal Medicine Cardiovascular Disease; Visit Provider Internal Medicine Cardiovascular Disease
DX: Z79.01 Long term (current) use of anticoagulants (principal); Z95.2 Presence of prosthetic heart valve
CPT/HCPCS: 36415; 85610

== ENCOUNTER 2025-02-07 12:42 | Outpatient (RCR) | payer MEDICARE, SELFPAY ==
[2024-02-08 12:59] VITALS: BMI 39.9
[2025-01-30 10:56] LABS: Prothrombin Time (Protime)PT. 38.1 SECONDS (11.7-14.9)
[2025-02-07 13:26] LABS: Prothrombin Time (Protime)PT. 36.7 SECONDS (11.7-14.9)
== END 2025-02-18 18:00 | disposition home or self-care (01) ==
LOC: LAB 12:42
PROVIDERS: PCP Family Medicine; Referring Provider Internal Medicine Cardiovascular Disease; Visit Provider Internal Medicine Cardiovascular Disease
DX: Z79.01 Long term (current) use of anticoagulants (principal); Z95.2 Presence of prosthetic heart valve
CPT/HCPCS: 36415; 85610